=== PATIENT | female | born 1975 | race Caucasian/White ===

== ENCOUNTER 2020-06-13 14:51 | Outpatient (REF) | payer MEDICAID, SELFPAY ==
--- NOTE | 2020-06-13 14:55 | MM_ITS ---
EXAMINATION: MM SCREENING DIGITAL BREAST TOMOSYNTHESIS, BILATERAL CLINICAL INFORMATION: Screening. Asymptomatic. The lifetime risk of breast cancer based on the Tyrer-Cuzick Model is 21%. COMPARISON: Mammography: 02/15/2020, 05/25/2019, 05/24/2019, 05/10/2018, 10/27/2017, 04/26/2017. Ultrasound left breast 05/10/2018 and 05/24/2019. Ultrasound right breast 05/24/2019. TECHNIQUE: Digital breast tomosynthesis is performed in both the craniocaudal and mediolateral oblique views along with computer-aided detection (CAD). Synthesized 2D images are generated from the tomosynthesis. FINDINGS: The breasts are heterogeneously dense, which may obscure small masses (ACR BI-RADS breast composition Category c). There are no significant masses, abnormal calcifications, or other abnormalities. There are scattered bilateral punctate calcifications in each breast. Biopsy clip marker again noted anterior 9:00 right breast. MM/MM tomosynthesis screening BI IMPRESSION: No significant changes from prior exams. ASSESSMENT: BI-RADS 2: Benign RECOMMENDATION: 1. Routine annual mammography screening. 2. The lifetime risk of breast cancer based on the Tyrer-Cuzick Model is 21%. Additional annual adjunct screening with breast MRI may be of benefit in women with a risk score of 20% or greater. This patient's information was entered into a reminder system with a target due date for their next mammogram.
== END 2020-06-13 14:52 | disposition home or self-care (01) ==
LOC: HO.MAMMO 14:51
PROVIDERS: PCP Family Medicine; Visit Provider Family Medicine
DX: Z01.818 Encounter for other preprocedural examination (principal)
CPT/HCPCS: 77063; 77067

== ENCOUNTER 2020-07-31 16:51 | Emergency (ER) | payer MEDICAID, SELFPAY ==
--- NOTE | 2020-07-31 | US_ITS ---
EXAMINATION: PELVIC ULTRASOUND CLINICAL INFORMATION: Pelvic pain COMPARISON: CT abdomen pelvis 01/25/2019 and pelvic ultrasound 01/25/2019 TECHNIQUE: Both transabdominal endovaginal scanning was performed. FINDINGS: An anteverted anteflexed uterus is present measuring 8.6 x 3.5 x 5.3 cm. No uterine masses are seen. The endometrium is homogeneous measuring 1 cm. Neither ovary could be seen. At the time of the 2019 ultrasound, they appeared normal No free fluid was present in the cul-de-sac US/US transvaginal IMPRESSION: No abnormality is seen. Neither ovary could be identified.
[2020-07-31 16:56] VITALS: BP 137/83; PULSE 88; RESP 16; TEMP 36.4; O2SAT 99; BMI 41.7
[2020-07-31 17:25] LABS: Glucose Urine UA NEG (NEG); Leukocyte Esterase Urine NEG (NEG); Nitrite Urine NEG (NEG); PH 6.5 (5.0-8.0); Specific Gravity - Urine 1.025 (1.005-1.025); Urine Blood NEG (NEG); Urine Ketones NEG (NEG); Urine Protein NEG (NEG-TRACE)
[2020-07-31 17:33] LABS: Appearance Urine CLEAR; Color Urine YELLOW
[2020-07-31 17:36] LABS: UPreg QC Valid YES; Urine Pregnancy NEGATIVE (NEGATIVE)
--- NOTE | 2020-07-31 19:33 | ED.ABDPAIN ---
HPI - Abdominal Pain General Chief Complaint: Abdominal Pain Stated Complaint: Abdominal pain Time Seen by Provider: 07/31/20 19:33 Source: patient Mode of arrival: ambulatory Limitations: no limitations History of Present Illness HPI narrative: Patient with no significant abdominal complaints in the past complaining of lower abdominal pain for last 4 days radiating to left flank area also complaining of dysuria associated with nausea no relation with food no diarrhea no fever no chills MD elicited complaint: abdominal pain and flank pain Pertinent past history: none Onset (ago): day(s) (4) Pain Consistency: constant Location: suprapubic Severity: mild Quality: cramping Radiation: L flank Exacerbating factors: nothing Relieving factors: nothing Associated symptoms: nausea Related Data Previous Rx's Medication Instructions Recorded dicyclomine 20 mg PO QID PRN #20 tab 07/31/20 Allergies Allergy/AdvReac Type Severity Reaction Status Date / Time aspirin [Aspirin] Allergy Mild SWELLING Unverified 04/03/20 16:16 THROAT avocado [AVOCADO] Allergy Unknown UNKNOWN Unverified 04/03/20 16:16 latex [LATEX] Allergy Unknown SWOLLEN Unverified 04/03/20 16:16 THROAT aspirin Allergy Unknown throat Uncoded 06/13/19 00:00 swelling FRUIT,FRESH Allergy Unknown UNKNOWN Uncoded 04/03/20 16:16 LOBSTER Allergy Unknown SWOLLEN Uncoded 04/03/20 16:16 MOUTH, THROAT CLOSES PEANUT BUTTER Allergy Unknown SWOLLEN Uncoded 04/03/20 16:16 THROAT, THROAT CLOSES Review of Systems Review of Systems Constitutional : No Weight loss, No Fever, No Chills ENT/Mouth : No sore throat, No Rhinorrhea Eyes: No Eye Pain, No Swelling Cardiovascular : No Chest Pain, no palpitations Respiratory : No Cough, No Sputum, no shortness of breath Gastrointestinal : ++ Nausea, No Vomiting, No Diarrhea, + abdominal Pain, no black stools Genitourinary : No Dysuria, No Urinary Frequency Musculoskeletal : No joint pain, No Myalgias, No Joint Swelling Skin : No Skin Lesions, No rash Neuro : No Weakness, No Numbness, No Dizziness, No Headache Psych : No Anxiety/Panic, No Depression Heme/Lymph: No Bruising, No Lymphadenopathy Endocrine : No Polyuria, No Polydipsia All other systems reviewed and are negative Physical Exam Vital Signs: Vital Signs: Last Vital Signs Temp 97.6 F 07/31/20 16:56 Pulse 88 07/31/20 16:56 Resp 16 07/31/20 16:56 BP 137/83 07/31/20 16:56 Pulse Ox 99 07/31/20 16:56 Body Mass Index 41.7 Const: General: cooperative, comfortable and no acute distress Orientation/consciousness: patient oriented x3 HENMT: Head: Yes normocephalic and Yes atraumatic Eyes: General: appearance normal, both eyes and all related structures Sclerae: sclerae normal Corneas: corneas normal Neck: Neck: Yes normal visual inspection Chest: Chest palpation & inspection: normal palpation of entire chest wall Resp: Effort & Inspection: normal respiratory effort Auscultation: clear to auscultation bilaterally, no crackles, no rales and no rhonchi Cardio: Rate: regular rate Rhythm: regular rhythm Heart sounds: S1 normal heart sound present and S2 normal heart sound present GI: Inspection: Yes normal to inspection Palpation (GI): Soft to palpation and Tenderness to palpation present (GI) suprapubicly; Foote's sign negative, obturator sign negative, with no rebound tenderness and Rovsing's sign negative Percussion: Yes normal to percussion Back/Spine/Pelvis: Back: CVA tenderness (Left) Thoracic/Lumbar Spine: thoracic and lumbar spine normal to inspection Skin: General skin exam: no rashes or lesions noted Neuro: General: patient oriented x3 and no focal motor deficits Extrem: General: Yes normal to inspection, Yes no calf tenderness and No pedal edema Course Course Course Narrative: Patient is still complaining of lower abdominal pain ultrasound was negative for any ovarian cyst or pathology urine also negative WBC count normal etiology of pain is not clear but still she is tender in lower abdomen will do a CT scan of abdomen to rule out any significant pathology MDM - Abdominal Pain MDM Narrative Medical decision making narrative: Patient nonspecific abdominal pain ultrasound negative for any ovarian cyst CT scan also negative for any acute pathology low WBC counts chemistry are all normal urine also negative likely IBS will discharge patient on Bentyl Differential Diagnosis Differential diagnosis: Likely abdominal pain, constipation, diverticulitis, ovarian cyst and pancreatitis Lab Data Attestation: I reviewed the patient's lab results. Result diagrams: 07/31/20 20:30 07/31/20 20:30 Labs: Lab Results 01/07/31/20 07/31/20 Range/Units 17:15 20:30 20:30 WBC 9.7 (4.8-10.8) X10*3/uL RBC 4.90 (4.20-5.50) X10*6/uL Hgb 12.6 (12.0-16.0) g/dl Hct 40.6 (37-47) % MCV 82.9 (80-98) fL MCH 25.7 L (27.0-33.0) pg MCHC 31.0 (31.0-35.0) g/dl RDW 14.5 (11.0-16.0) % Plt Count 257 (160-400) X10*3/uL MPV 10.7 (9.4-12.3) fL Immature Gran % (Auto) 0.4 (0.0-0.4) % Neut % (Auto) 62.8 (45-73) % Lymph % (Auto) 25.4 (20-40) % Mclennan % (Auto) 8.2 (2-11) % Eos % (Auto) 2.6 (0-4) % Baso % (Auto) 0.6 (0-2) % Lymph # (Auto) 2.5 (1.2-4.9) X10*3/uL Mclennan # (Auto) 0.8 (0.1-1.2) X10*3/uL Eos # (Auto) 0.3 (0.0-0.4) X10*3/uL Baso # (Auto) 0.1 (0.0-0.2) X10*3/uL Abs Immat Gran (auto) 0.04 H (0.00-0.03) X10*3/uL Absolute Neuts (auto) 6.1 (2.0-8.3) X10*3/uL Absolute Nucleated RBC 0.000 (0.0-0.012) X10*3/uL Nucleated RBC % (auto) 0.0 (0.0-0.2) /100WBC Sodium 141 (135-145) mmol/L Potassium 4.0 (3.3-5.1) mmol/l Chloride 107 (96-108) mmol/L Carbon Dioxide 29 (22-29) mmol/L Anion Gap 9 L (12-20) BUN 16 (9-16) mg/dL Creatinine 0.82 (0.5-1.4) mg/dL Estim Creat Clear Calc 98.7 Estimated GFR > 60 Random Glucose 92 (60-115) mg/dL Calcium 8.7 (8.4-10.2) mg/dL Total Bilirubin 0.3 (0.0-1.0) mg/dL Direct Bilirubin < 0.2 (0.0-0.5) mg/dL AST 15 (5-31) U/L ALT 20 (0-31) U/L Alkaline Phosphatase 118 H (39-117) U/L Total Protein 7.3 (6.5-8.0) g/dL Albumin 4.1 (3.5-5.0) g/dL Lipase 32 (8-78) U/L Urine Color YELLOW Urine Appearance CLEAR Urine pH 6.5 (5.0-8.0) Ur Specific Universal 1.025 (1.005-1.025) Urine Protein NEG (NEG-TRACE) MG/DL Urine Glucose (UA) NEG (NEG) MG/DL Urine Ketones NEG (NEG) MG/DL Urine Blood NEG (NEG) Urine Nitrite NEG (NEG) Ur Leukocyte Esterase NEG (NEG) Urine Test NEGATIVE (NEGATIVE) Discharge Plan Discharge Clinical Impression: Abdominal pain Patient Disposition: Home, Self-Care Instructions: Abdominal Pain (ED) Additional Instructions: Drink plenty of fluids The cause of abdominal pain is not very clear the CT scan and ultrasound and blood is normal. Take medication as advised and follow with PCP Prescriptions: New dicyclomine 20 mg tablet 20 mg PO QID PRN (Reason: abdominal pain) Qty: 20 RF: 0 PMFSH Past Medical History Medical History Asthma Surgical History Hx of cholecystectomy Social History Social History Advance Directives: No Advance Directives Information Provided: Yes
--- NOTE | 2020-07-31 19:39 | US_ITS ---
EXAMINATION: PELVIC ULTRASOUND CLINICAL INFORMATION: Pelvic pain COMPARISON: CT abdomen pelvis 01/25/2019 and pelvic ultrasound 01/25/2019 TECHNIQUE: Both transabdominal endovaginal scanning was performed. FINDINGS: An anteverted anteflexed uterus is present measuring 8.6 x 3.5 x 5.3 cm. No uterine masses are seen. The endometrium is homogeneous measuring 1 cm. Neither ovary could be seen. At the time of the 2019 ultrasound, they appeared normal No free fluid was present in the cul-de-sac US/US pelvic complete IMPRESSION: No abnormality is seen. Neither ovary could be identified.
[2020-07-31 20:34] LABS: MANUAL DIFF FLAG NO
[2020-07-31 20:35] LABS: Basophils Absolute Auto 0.1 X10*3/uL (0.0-0.2); Basophils Percent Auto 0.6 % (0-2); Eosinophils Absolute Auto 0.3 X10*3/uL (0.0-0.4); Eosinophils Percent Auto 2.6 % (0-4); Hematocrit 40.6 % (37-47); Hemoglobin 12.6 g/dl (12.0-16.0); Imm Gran Abs Auto 0.04 X10*3/uL (0.00-0.03); Imm Gran Pct Auto 0.4 % (0.0-0.4); Lymphocytes Absolute Auto 2.5 X10*3/uL (1.2-4.9); Lymphocytes Percent Auto 25.4 % (20-40); Mean Corpuscular Hemoglobin 25.7 pg (27.0-33.0); Mean Corpuscular Volume 82.9 fL (80-98); Mean Platelet Volume 10.7 fL (9.4-12.3); Monocytes Absolute Auto 0.8 X10*3/uL (0.1-1.2); Monocytes Percent Auto 8.2 % (2-11); Neutrophils Absolute Auto 6.1 X10*3/uL (2.0-8.3); Neutrophils Percent Auto 62.8 % (45-73); Platelet Count 257 X10*3/uL (160-400); Red Cell Distribution Width 14.5 % (11.0-16.0); White Blood Count 9.7 X10*3/uL (4.8-10.8)
[2020-07-31 21:01] LABS: Alanine Aminotransferase 20 U/L (0-31); Albumin Level 4.1 g/dL (3.5-5.0); Alkaline Phosphatase 118 U/L (39-117); Anion Gap 9 (12-20); Aspartate Amino Transferase 15 U/L (5-31); Bilirubin Direct < 0.2 mg/dL (0.0-0.5); Bilirubin Total 0.3 mg/dL (0.0-1.0); Blood Urea Nitrogen 16 mg/dL (9-16); Calcium 8.7 mg/dL (8.4-10.2); Carbon Dioxide 29 mmol/L (22-29); Chloride 107 mmol/L (96-108); Creatinine Clr Calc Pharmacy 98.7; Estimated Glomerular Filt Rate > 60; Glucose Random 92 mg/dL (60-115); Lipase 32 U/L (8-78); Sodium 141 mmol/L (135-145); Total Protein 7.3 g/dL (6.5-8.0)
--- NOTE | 2020-07-31 21:44 | CT_ITS ---
EXAMINATION: CT ABDOMEN AND PELVIS WITHOUT CONTRAST CLINICAL INFORMATION: 45-year-old female with lower abdominal pain. COMPARISON: CT abdomen pelvis 01/25/2019 TECHNIQUE: Multidetector volumetric imaging was performed from the superior aspect of the liver through the pubic symphysis. Sagittal and coronal reformatted images were obtained on the technologist's workstation. This CT examination was performed using dose optimization techniques as appropriate, variously including the following: *Automated exposure control *Adjustment of mA and/or kV according to patient size (this includes techniques or standardized protocols for targeted exams where dose is matched to indication/reason for exam; i.e. extremities or head) *Use of iterative reconstruction technique DLP: 855 mGy-cm FINDINGS: Visualized lung bases are well aerated. The liver demonstrates normal size, contour and attenuation. The gallbladder is surgically absent. The pancreas, spleen and adrenal glands are unremarkable. Symmetrically sized kidneys. No renal calculi or hydronephrosis bilaterally. The stomach is decompressed. Normal caliber loops of small and large bowel. Normal appendix. Nonaneurysmal abdominal aorta. No retroperitoneal lymphadenopathy. The bladder is well-distended and normal in appearance. Unremarkable CT appearance of the uterus. No gross free pelvic fluid. No inguinal lymphadenopathy. No acute osseous abnormality. Metallic fragments again noted in the region of the right hip. CT/CT abdomen pelvis wo con IMPRESSION: No CT evidence for acute abnormality within the abdomen or pelvis.
[2020-07-31 22:00] VITALS: BP 122/78; PULSE 81; RESP 16; TEMP 36.7; O2SAT 99
[2020-07-31] MEDS: Dicyclomine HCl 10 MG CAPSULE 20 MG PO (23:14)
== END 2020-07-31 23:30 | disposition home or self-care (01) ==
PROVIDERS: Emergency Provider Internal Medicine; PCP Family Medicine
DX: R10.9 Unspecified abdominal pain (principal); R10.2 Pelvic and perineal pain; R30.0 Dysuria; R11.2 Nausea with vomiting, unspecified; R25.2 Cramp and spasm; Z79.899 Other long term (current) drug therapy
CPT/HCPCS: 36415; 74176; 76830; 76856; 80048; 80076; 81003; 81025; 83690; 85025; 99284

== ENCOUNTER → 2020-12-26 10:16 | Outpatient (BNVA) | payer MEDICAID, SELFPAY | PROVIDERS: PCP Family Medicine; Visit Provider Nurse Practitioner Family | DX: M54.16 Radiculopathy, lumbar region (principal); M53.3 Sacrococcygeal disorders, not elsewhere classified | CPT/HCPCS: 99202 ==

== ENCOUNTER 2021-01-08 12:51 | Outpatient (REF) | payer MEDICAID, SELFPAY ==
--- NOTE | ~2021-01-08 | MR_ITS ---
EXAMINATION: MR LUMBAR SPINE WITHOUT CONTRAST CLINICAL INFORMATION: Lower back pain. Right leg pain with toe numbness or weakness. COMPARISON: Lumbar spine MRI dated 09/05/2009 TECHNIQUE: MRI of the lumbar spine was obtained using routine sequences without contrast. FINDINGS: VERTEBRAL BODIES AND PARASPINAL STRUCTURES: Normal vertebral body alignment. The lumbar lordosis is maintained. No acute fracture or subluxation. No loss of vertebral body height. Mild loss of intervertebral disc height with disc desiccation at L3-L4, L4-L5, and L5-S1 which is slightly progressed when compared to the prior MRI. Additionally, loss of intervertebral disc height and disc desiccation appears unchanged at T11-T12. No marrow edema to suggest acute osseous injury. The visualized paraspinal soft tissues are unremarkable. CONUS MEDULLARIS AND CAUDA EQUINA: Normal, terminating at the level of L1. SPINAL LEVELS: T11-T12: Minimal disc bulge, unchanged without significant central canal or neural foraminal stenosis. T12-L1: No significant disc bulge. No central canal or neural foraminal stenosis. L1-L2: No significant disc bulge. No central canal or neural foraminal stenosis. L2-L3: No significant disc bulge. No central canal or neural foraminal stenosis. L3-L4: Shallow broad-based disc bulge with bilateral facet arthropathy. No significant central canal or neural foraminal stenosis. Findings are new/increased when compared to the prior examination. L4-L5: Shallow broad-based disc bulge with bilateral facet arthropathy and thickening of the ligamentum flavum causing mild central canal stenosis and encroaching upon the traversing bilateral L5 nerve roots within the lateral recesses. Additionally, this causes mild bilateral neural foraminal stenosis. Findings are slightly more prominent when compared to the prior MRI. L5-S1: Shallow disc bulge and posterior central disc protrusion which abuts the traversing left S1 nerve root. Bilateral facet arthropathy with no significant neural foraminal stenosis. Findings are new/increased when compared to the prior examination. MR/MR lumbar spine wo con IMPRESSION: 1. Mild degenerative disc disease at L3-L4 with a shallow broad-based disc bulge and bilateral facet arthropathy, new/increased when compared to the prior examination. No significant central canal or neural foraminal stenosis. 2. Shallow disc bulge at L5-S1 with a posterior central disc protrusion which abuts the traversing left S1 nerve root. Bilateral facet arthropathy. No significant central canal or neural foraminal stenosis. Findings are new/increased when compared to the prior examination. 3. Shallow broad-based disc bulge at L4-L5 with bilateral facet arthropathy and thickening of the ligamentum flavum causing mild central canal stenosis which encroaches upon the traversing bilateral L5 nerve roots. Mild bilateral neural foraminal stenosis. Findings are slightly more prominent when compared to the prior examination.
== END 2021-01-08 12:52 | disposition home or self-care (01) ==
LOC: HO.MRI 12:51
PROVIDERS: PCP Family Medicine; Visit Provider Anesthesiology
DX: M54.16 Radiculopathy, lumbar region (principal)
CPT/HCPCS: 72148

== ENCOUNTER 2021-04-23 14:09 | Outpatient (REF) | payer MEDICAID, SELFPAY ==
--- NOTE | ~2021-04-23 | US_ITS ---
EXAMINATION: US PELVIS CLINICAL INFORMATION: Irregular menses COMPARISON: Previous pelvic ultrasound and CT of the abdomen and pelvis July 2020 TECHNIQUE: Ultrasound of the pelvis is performed using both transabdominal and transvaginal transducers along with Doppler. Transvaginal imaging is performed due to inadequate visualization transabdominally. FINDINGS: The uterus is anteverted and measures 8 x 3.9 x 4.9 cm in dimension. No focal uterine lesion is seen. Endometrial thickness is normal measuring 0.5 cm. The ovaries are normal-appearing. The right ovary measures 3.2 x 1.7 x 2.3 cm and the left ovary measures 3.6 x 2.1 x 1.9 cm. There is no fluid in the pelvis. US/US pelvic and transvaginal IMPRESSION: Unremarkable exam.
== END 2021-04-23 14:10 | disposition home or self-care (01) ==
LOC: HO.HMGCX 14:09
PROVIDERS: PCP Family Medicine; Visit Provider General Practice
DX: N92.6 Irregular menstruation, unspecified (principal)
CPT/HCPCS: 76830; 76856

== ENCOUNTER 2021-06-04 12:37 | Outpatient (REF) | payer MEDICAID, SELFPAY ==
--- NOTE | ~2021-06-04 | CT_ITS ---
EXAMINATION: CT HEAD WITHOUT CONTRAST CLINICAL INFORMATION: Seizure like activity. Rule out mass. COMPARISON: None TECHNIQUE: Contiguous axial imaging was performed from the skull base to vertex without intravenous administration of contrast. This CT examination was performed using dose optimization techniques as appropriate, variously including the following: *Automated exposure control *Adjustment of mA and/or kV according to patient size (this includes techniques or standardized protocols for targeted exams where dose is matched to indication/reason for exam; i.e. extremities or head) *Use of iterative reconstruction technique DLP: 692 mGy-cm FINDINGS: There is no evidence of acute intracranial hemorrhage or territorial infarction. No abnormal mass effect or midline shift is seen. Stewart to white matter differentiation is well preserved. No extra-axial fluid collections are identified. The ventricles are normal in size. There is no abnormal attenuation within the brain parenchyma. The osseous structures and soft tissues are normal. There are mild inflammatory changes in the sphenoid sinus. The mastoid air cells and visualized portions of the paranasal sinuses are otherwise clear.. CT/CT head/brain wo con IMPRESSION: No acute intracranial pathology.
== END 2021-06-04 12:38 | disposition home or self-care (01) ==
LOC: HO.CT 12:37
PROVIDERS: PCP Family Medicine; Visit Provider Internal Medicine
DX: R56.9 Unspecified convulsions (principal)
CPT/HCPCS: 70450

== ENCOUNTER 2021-06-19 12:00 | Outpatient (REF) | payer MEDICAID, SELFPAY ==
--- NOTE | ~2021-06-19 | MM_ITS ---
EXAMINATION: MM SCREENING DIGITAL BREAST TOMOSYNTHESIS, BILATERAL CLINICAL INFORMATION: Screening. Asymptomatic. Benign right ultrasound-guided biopsy 05/25/2019 (benign breast tissue with cystic changes, chronic inflammation and stromal fibrosis; no atypia or carcinoma seen). The lifetime risk of breast cancer based on the Tyrer-Cuzick Model is 12%. COMPARISON: Mammography: 06/13/2020, 02/15/2020, 05/25/2019, 05/24/2019, 05/10/2018; targeted right breast ultrasound 05/24/2019, ultrasound-guided biopsy 01/22/2019. TECHNIQUE: Digital breast tomosynthesis is performed in both the craniocaudal and mediolateral oblique views along with computer-aided detection (CAD). Synthesized 2D images are generated from the tomosynthesis. FINDINGS: The breasts are heterogeneously dense, which may obscure small masses (ACR BI-RADS breast composition Category c). There are no significant masses, abnormal calcifications, or other abnormalities. No developing density. Again, there are scattered regional calcifications bilateral upper outer quadrants, greater on right. There is a biopsy clip marker again seen anterior 9:30 o'clock right breast. The axilla and skin contours are unremarkable. MM/MM tomosynthesis screening BI IMPRESSION: No mammographic evidence of malignancy. ASSESSMENT: BI-RADS 2: Benign RECOMMENDATION: Routine annual mammography screening. This patient's information was entered into a reminder system with a target due date for their next mammogram.
== END 2021-06-19 12:01 | disposition home or self-care (01) ==
LOC: HO.MAMMO 12:00
PROVIDERS: PCP Family Medicine; Visit Provider Family Medicine
DX: Z12.31 Encounter for screening mammogram for malignant neoplasm of breast (principal)
CPT/HCPCS: 77063; 77067

== ENCOUNTER → 2021-06-22 13:22 | Outpatient (REF) | payer MEDICAID, SELFPAY ==
--- NOTE | 2021-06-22 13:28 | ECG_ITS ---
Hook-up date: 2021-06-22 13:38:00 Duration: 26:03:00 Test Indications: UNSPEC. COMA Medications: [id number] QRS complexes 2 Ventricular ectopics which represent <1 % of total QRS comp. 3 Supraventricular ectopics which represent <1 % of total QRS comp. * Paced QRS complexs which represent % of total QRS comp. VENTRICULAR ECTOPY 2 Isolated 0 Bigeminal Cycles 0 Couplets 0 Runs 0 Beats in Runs * Beats LONGEST at * BPM at :: -- * Beats FASTEST at * BPM at :: -- SUPRAVENTRICULAR ECTOPY 3 Isolated 0 Couplets 0 Runs 0 Beats in Runs * Beats LONGEST at * BPM at :: -- * Beats FASTEST at * BPM at :: -- HEART RATES 51 MIN at 07:37:35 2021-06-23 81 AVG 139 MAX at 20:40:37 2021-06-22 LONGEST RR 1.2640 secs at 08:30:51 2021-06-23 S-T LEVELS Channel 1 - 128 mm at 13:38:00 2021-06-22 - 128 mm at 13:38:00 2021-06-22 Channel 2 - 128 mm at 13:38:00 2021-06-22 - 128 mm at 13:38:00 2021-06-22 Channel 3 - 128 mm at 03:25:71 -- - 128 mm at 03:25:71 Underlying rhythm is sinus; Average ventricular rate 81/min; range 51-139/min; No significant supraventricular or ventricular ectopy; No sustained arrhythmias; Symptoms in patient diary including 'dizziness', 'chest tightness' associated with normal sinus rhythm; symptom of 'accelerated' associated with mild sinus tachycardia. Referred By: Nito Braga Overread By: SHELBY BAR
== END ==
LOC: HO.CARD 13:22
PROVIDERS: Visit Provider Internal Medicine
DX: R40.20 Unspecified coma (principal)
CPT/HCPCS: 93225; 93226

== ENCOUNTER 2021-06-23 06:33 | Outpatient (REF) | payer MEDICAID, SELFPAY ==
--- NOTE | ~2021-06-23 | FL_ITS ---
EXAMINATION: XR FLUOROSCOPY WITH IMAGES CLINICAL INFORMATION: M54.16 - Radiculopathy, lumbar region COMPARISON: MR lumbar spine 01/08/2021 TECHNIQUE: Fluoroscopy performed by Dr. Piyush Coronel. Fluoroscopy time: 0.5 minutes DAP: 8.7 Gycm2 Images: 2 FINDINGS: There are spinal needles overlying the bilateral outer L4 neural foramen. There is contrast seen in the respective nerve sheaths. Transverse foraminal epidural extension is suggested. No visible vascular communication. FL/FL guidance in treatment room IMPRESSION: Fluoroscopy for pain management procedures.
== END 2021-06-23 06:34 | disposition home or self-care (01) ==
LOC: HO.RADIR 06:33
PROVIDERS: Visit Provider Anesthesiology
DX: M54.16 Radiculopathy, lumbar region (principal); M53.3 Sacrococcygeal disorders, not elsewhere classified
CPT/HCPCS: 64483; J3300; Q9967

== ENCOUNTER → 2021-07-21 12:02 | Outpatient (BNVA) | payer MEDICAID, SELFPAY | PROVIDERS: PCP Family Medicine; Visit Provider Nurse Practitioner Family | DX: M54.16 Radiculopathy, lumbar region (principal); M53.3 Sacrococcygeal disorders, not elsewhere classified | CPT/HCPCS: 99212 ==

== ENCOUNTER → 2021-09-29 15:31 | Outpatient (BNVA) | payer MEDICAID, SELFPAY | PROVIDERS: Visit Provider Nurse Practitioner Family | DX: Z13.89 Encounter for screening for other disorder (principal) ==

== ENCOUNTER 2021-11-26 14:21 | Outpatient (REF) | payer MEDICAID, SELFPAY ==
[2021-11-26 14:40] LABS: MANUAL DIFF FLAG NO
[2021-11-26 14:44] LABS: Basophils Absolute Auto 0.1 X10*3/uL (0.0-0.2); Basophils Percent Auto 0.8 % (0-2); Eosinophils Absolute Auto 0.2 X10*3/uL (0.0-0.4); Eosinophils Percent Auto 3.1 % (0-4); Hematocrit 40.2 % (37.0-47.0); Hemoglobin 12.5 g/dl (12.0-16.0); Imm Gran Abs Auto 0.03 X10*3/uL (0.00-0.03); Imm Gran Pct Auto 0.4 % (0.0-0.4); Lymphocytes Absolute Auto 1.9 X10*3/uL (1.2-4.9); Lymphocytes Percent Auto 25.6 % (20-40); Mean Corpuscular HGB Conc 31.1 g/dl (31.0-35.0); Mean Corpuscular Hemoglobin 25.3 pg (27.0-33.0); Mean Corpuscular Volume 81.4 fL (80.0-98.0); Monocytes Absolute Auto 0.5 X10*3/uL (0.1-1.2); Monocytes Percent Auto 6.5 % (2-11); Neutrophils Absolute Auto 4.7 x10*3/uL (2.0-8.3); Neutrophils Percent Auto 63.6 % (45-73); Platelet Count 275 X10*3/uL (160-400); Red Blood Count 4.94 X10*6/uL (4.20-5.50); Red Cell Distribution Width 14.9 % (11.0-16.0); White Blood Count 7.3 X10*3/uL (4.8-10.8)
[2021-11-26 15:02] LABS: Monotest Negative (Negative)
[2021-11-26 15:07] LABS: Anion Gap 10 (12-20); Blood Urea Nitrogen 11 mg/dL (9-16); C Reactive Protein 1.03 mg/dL (< or = 0.50); Calcium 9.2 mg/dL (8.4-10.2); Carbon Dioxide 26 mmol/L (22-29); Chloride 108 mmol/L (96-108); Estimated Glomerular Filt Rate > 60; Glucose Random 102 mg/dL (60-115); Potassium 4.1 mmol/L (3.3-5.1); Sodium 140 mmol/L (135-145)
[2021-11-26 15:30] LABS: Erythrocyte Sedimentation Rate 18 MM/HR (0-20)
== END 2021-11-26 14:22 | disposition home or self-care (01) ==
LOC: HO.LAB 14:21
PROVIDERS: Absent Provider Family Medicine; PCP Family Medicine; Visit Provider Internal Medicine
DX: R22.2 Localized swelling, mass and lump, trunk (principal)
CPT/HCPCS: 36415; 80048; 85025; 85652; 86140; 86308

== ENCOUNTER 2021-12-01 10:36 | Outpatient (REF) | payer MEDICAID, SELFPAY ==
--- NOTE | ~2021-12-01 | CT_ITS ---
EXAMINATION: CT SOFT TISSUE NECK WITH CONTRAST CLINICAL INFORMATION: Pain and swelling. COMPARISON: None TECHNIQUE: Following the intravenous administration of 80 mL of Omnipaque 350 contrast, helical imaging was performed in the axial plane with generation of coronal and sagittal reformatted images. This CT examination was performed using dose optimization techniques as appropriate, variously including the following: *Automated exposure control *Adjustment of mA and/or kV according to patient size (this includes techniques or standardized protocols for targeted exams where dose is matched to indication/reason for exam; i.e. extremities or head) *Use of iterative reconstruction technique DLP: 691 mGy-cm FINDINGS: No contour abnormality or pathologic enhancement is seen within the oral cavity, pharyngeal mucosal space, or larynx. The thyroid gland appears normal. The submandibular and parotid glands are normal in appearance. No enlarged cervical lymph nodes are identified. The carotid sheath vasculature opacifies normally. A 1 cm left supraclavicular lymph node is slightly conspicuous but not pathologically enlarged. The imaged mediastinum appears normal. The lung apices are clear. No acute osseous abnormality is identified. There is a reversal of the normal cervical lordosis with a disc-osteophyte complex at the C6-C7 level. No extra mucosal soft tissue lesion is identified. No periapical lucencies are seen in the dentition. The imaged paranasal sinuses and mastoid air cells are well aerated. The orbits appear normal. The visualized portions of the brain demonstrate no acute abnormality. CT/CT soft tissue neck w con IMPRESSION: No soft tissue mass or adenopathy identified. No acute process. Lower cervical spondylosis.
--- NOTE | ~2021-12-01 | CT_ITS ---
EXAMINATION: CT CHEST WITH CONTRAST CLINICAL INFORMATION: Lump, pain and swelling. COMPARISON: None TECHNIQUE: Multidetector volumetric CT imaging of the chest was obtained after the administration of 80 mL of Omnipaque 350 intravenous contrast without immediate adverse reactions. Axial MIP volume rendering provided. Sagittal and coronal reformatted images were obtained. This CT examination was performed using dose optimization techniques as appropriate, variously including the following: *Automated exposure control *Adjustment of mA and/or kV according to patient size (this includes techniques or standardized protocols for targeted exams where dose is matched to indication/reason for exam; i.e. extremities or head) *Use of iterative reconstruction technique DLP: 691 mGy-cm FINDINGS: LUNGS: Central airways are patent. No significant bronchial wall thickening is seen. No bronchiectasis. No significant emphysematous change is seen. No confluent parenchymal disease is noted. No suspicious nodules identified. MEDIASTINUM: Visualized thyroid gland unremarkable. Heart normal size. No pericardial effusion. No significant coronary artery calcification is identified. No thoracic aortic aneurysm. No mediastinal or hilar lymphadenopathy identified. There are a few prominent but not pathologically enlarged superior mediastinal lymph nodes. PLEURA: There is no pleural effusion. No pleural mass or thickening. AXILLA: There are some prominent axillary lymph nodes, left greater than right, measuring up to 1.2 cm in short axis. UPPER ABDOMEN: Status post cholecystectomy. No adrenal gland lesions identified. OSSEOUS STRUCTURES: No acute destructive bony lesions identified. CT/CT chest w con IMPRESSION: No significant parenchymal disease identified. Mildly prominent lymph nodes as described. Fleischner guidelines were followed.
[2021-12-01] MEDS: iohexoL 350 MG/ML 100 ML INFUS..BTL 80 ML IV (11:37)
== END 2021-12-01 10:37 | disposition home or self-care (01) ==
LOC: HO.CT 10:36
PROVIDERS: Visit Provider Internal Medicine
DX: R22.2 Localized swelling, mass and lump, trunk (principal)
CPT/HCPCS: 70491; 71260; Q9967

== ENCOUNTER 2021-12-04 06:15 | Outpatient (REF) | payer MEDICAID, SELFPAY ==
--- NOTE | ~2021-12-04 | FL_ITS ---
EXAMINATION: XR FLUOROSCOPY WITH IMAGES CLINICAL INFORMATION: M54.16 - Radiculopathy, lumbar region COMPARISON: Fluoroscopic spot views 06/23/2021; MR lumbar spine 01/08/2021. TECHNIQUE: Fluoroscopy performed by Dr. Contreras Victoria. Fluoroscopy time: 0.7 minutes DAP: 4.04 Gycm2 Images: 4 FINDINGS: There are spinal needles overlying the bilateral outer L4 neural foramen. There is contrast seen in the respective nerve sheaths. Some early transforaminal epidural extension is suggested. No visible vascular communication.
== END 2021-12-04 06:16 | disposition home or self-care (01) ==
LOC: HO.RADIR 06:15
PROVIDERS: Visit Provider Internal Medicine
DX: G89.29 Other chronic pain (principal); M54.16 Radiculopathy, lumbar region; M54.9 Dorsalgia, unspecified
CPT/HCPCS: 64483; J1100; Q9967

== ENCOUNTER → 2022-02-28 22:19 | Outpatient (REF) | payer MEDICAID, SELFPAY | LOC: HO.SL 22:19 | PROVIDERS: Visit Provider Family Medicine | DX: R06.00 Dyspnea, unspecified (principal); R06.83 Snoring | CPT/HCPCS: 95810 ==

== ENCOUNTER 2022-03-10 16:45 | Emergency (ER) | payer MEDICAID, SELFPAY ==
--- NOTE | ~2022-03-10 | XR_ITS ---
EXAMINATION: XR CHEST CLINICAL INFORMATION: Chest pain COMPARISON: None TECHNIQUE: 2 views of the chest were obtained. FINDINGS: No significant abnormality is noted involving the heart, lungs, mediastinum, bony thorax or soft tissues. XR/XR chest 2V IMPRESSION: Unremarkable examination.
--- NOTE | 2022-03-10 16:48 | ECG_ITS ---
Test Reason : CHEST PAIN Blood Pressure : / mmHG Vent. Rate : 065 BPM Atrial Rate : 065 BPM P-R Int : 144 ms QRS Dur : 084 ms QT Int : 408 ms P-R-T Axes : 042 021 012 degrees QTc Int : 424 ms Normal sinus rhythm with sinus arrhythmia Normal ECG When compared with ECG of 27-OCT-2016 19:01, Vent. rate has decreased BY 32 BPM Referred By: Generic ED Physician Electronically Signed By:ROSANNA PULLIAM
[2022-03-10 16:54] VITALS: PULSE 87; RESP 18; TEMP 36.6; O2SAT 100; BMI 33.3
[2022-03-10 19:04] LABS: MANUAL DIFF FLAG NO
[2022-03-10 19:07] LABS: Basophils Absolute Auto 0.1 X10*3/uL (0.0-0.2); Basophils Percent Auto 0.8 % (0-2); Eosinophils Absolute Auto 0.2 X10*3/uL (0.0-0.4); Eosinophils Percent Auto 3.6 % (0-4); Hematocrit 39.7 % (37.0-47.0); Hemoglobin 12.6 g/dl (12.0-16.0); Imm Gran Abs Auto 0.03 X10*3/uL (0.00-0.03); Imm Gran Pct Auto 0.5 % (0.0-0.4); Mean Corpuscular HGB Conc 31.7 g/dl (31.0-35.0); Mean Corpuscular Hemoglobin 25.7 pg (27.0-33.0); Mean Corpuscular Volume 80.9 fL (80.0-98.0); Mean Platelet Volume 10.2 fL (9.4-12.3); Monocytes Absolute Auto 0.5 X10*3/uL (0.1-1.2); Monocytes Percent Auto 7.1 % (2-11); Neutrophils Absolute Auto 3.7 x10*3/uL (2.0-8.3); Platelet Count 247 X10*3/uL (160-400); Red Blood Count 4.91 X10*6/uL (4.20-5.50); White Blood Count 6.5 X10*3/uL (4.8-10.8)
[2022-03-10 19:22] LABS: Alanine Aminotransferase 18 U/L (0-31); Albumin Level 3.9 g/dL (3.5-5.0); Alkaline Phosphatase 126 U/L (39-117); Anion Gap 12 (12-20); Aspartate Amino Transferase 19 U/L (5-31); Bilirubin Direct < 0.2 mg/dL (0.0-0.5); Bilirubin Total 0.2 mg/dL (0.0-1.0); Blood Urea Nitrogen 11 mg/dL (9-16); Calcium 8.9 mg/dL (8.4-10.2); Carbon Dioxide 27 mmol/L (22-29); Chloride 109 mmol/L (96-108); Creatinine Clr Calc Pharmacy 105.7; Estimated Glomerular Filt Rate > 60; Glucose Random 94 mg/dL (60-115); Sodium 144 mmol/L (135-145); Total Protein 7.1 g/dL (6.5-8.0)
[2022-03-10 19:28] LABS: Troponin-I High Sensitivity < 3.5 ng/L (<3.5-17.0)
[2022-03-10 21:42] VITALS: BP 140/87; PULSE 59; RESP 16; TEMP 36.6; O2SAT 100
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
[2022-03-10 23:17] VITALS: BP 129/70; PULSE 57; RESP 16; TEMP 36.8; O2SAT 99
[2022-03-10] MEDS: predniSONE 20 MG TABLET 60 MG PO (23:37)
[2022-03-10] MEDS: guaiFEN/Codeine SF 200/20/10ML 10 ML LIQUID 5 ML PO (23:37)
[2022-03-10] MEDS: Azithromycin 500 MG TABLET PO (23:37)
[2022-03-10] MEDS: Acetaminophen 325 MG TABLET 975 MG PO (23:37)
[2022-03-11 00:12] LABS: COVID-19 Test Negative (Negative)
--- NOTE | 2022-03-11 00:25 | PC.NURSE ---
pt stated she had about a 6 out of 10 chest pain at time of discharge. discharge packet was provided to patient. pt verbalized understanding of discharge plan
== END 2022-03-11 00:26 | disposition home or self-care (01) ==
PROVIDERS: Nurse Practitioner Family; Emergency Provider Internal Medicine
DX: R07.89 Other chest pain (principal); Z20.822 Contact with and (suspected) exposure to COVID-19; Z79.899 Other long term (current) drug therapy
CPT/HCPCS: 36415; 71046; 80053; 82248; 84484; 85025; 87635; 93005; 99283; 99284

== ENCOUNTER 2022-10-06 14:25 | Outpatient (REF) | payer MEDICAID, SELFPAY ==
--- NOTE | ~2022-10-06 | US_ITS ---
EXAM: Pelvic Ultrasound CLINICAL INDICATION: Left lower quadrant stabbing pain COMPARISON: Pelvic ultrasound 04/23/2021 TECHNIQUE: The pelvis was evaluated using transabdominal and transvaginal imaging. FINDINGS: The uterus measures 8.0 x 4.0 x 6.1 cm in longitudinal by AP by transverse dimension. The endometrial stripe measures 1.2 cm. The left ovary measures approximately 3.5 x 2.3 x 2.4 cm and contains a 2.3 cm dominant follicle versus simple cyst. The right ovary measures approximately 2.9 x 1.4 x 2.0 cm and is normal. There are no abnormal adnexal masses. There is a small amount of free fluid in the pelvis. US/US pelvic and transvaginal IMPRESSION: 1. Endometrial stripe measures 1.2 cm in thickness. Correlation with menstrual cycle recommended. 2. 2.3 cm dominant follicle versus simple cyst of the left ovary. 3. Small amount of free pelvic fluid, nonspecific.
== END 2022-10-06 14:26 | disposition home or self-care (01) ==
LOC: HO.US 14:25
PROVIDERS: Visit Provider Registered Nurse
DX: R10.32 Left lower quadrant pain (principal)
CPT/HCPCS: 76830; 76856

== ENCOUNTER 2023-05-25 17:51 | Outpatient (REF) | payer MEDICAID, SELFPAY ==
[2023-05-25 18:55] LABS: Influenza A PCR NEGATIVE (Negative); Influenza B PCR NEGATIVE (Negative); Resp Syncy Virus RNA Qual PCR NEGATIVE (Negative); SARS COV2 PCR INHOUSE NEGATIVE (Negative)
== END 2023-05-25 17:52 | disposition home or self-care (01) ==
LOC: HO.HHCLNP 17:51
PROVIDERS: Visit Provider Emergency Medicine
DX: J45.40 Moderate persistent asthma, uncomplicated (principal); Z11.52 Encounter for screening for COVID-19
CPT/HCPCS: 0241U; 87070

== ENCOUNTER 2023-08-08 14:13 | Outpatient (REF) | payer MEDICAID, SELFPAY ==
[2023-08-08 16:32] LABS: Estimated Average Glucose 100 mg/dL; Hemoglobin A1c % 5.1 % (<6.0)
[2023-08-08 16:47] LABS: Alanine Aminotransferase 19 U/L (0-31); Albumin Level 4.2 g/dL (3.5-5.0); Alkaline Phosphatase 123 U/L (39-117); Anion Gap 11 (12-20); Aspartate Amino Transferase 19 U/L (5-31); Bilirubin Total 0.3 mg/dL (0.0-1.0); Blood Urea Nitrogen 12 mg/dL (9-16); Calcium 9.4 mg/dL (8.4-10.2); Carbon Dioxide 26 mmol/L (22-29); Chloride 107 mmol/L (96-108); Estimated Glomerular Filt Rate > 60; Glucose Random 82 mg/dL (60-115); Potassium 3.9 mmol/L (3.3-5.1); Sodium 140 mmol/L (135-145)
[2023-08-08 17:02] LABS: TSH reflex Free T4 2.89 uIU/mL (0.32-4.0)
== END 2023-08-08 14:14 | disposition home or self-care (01) ==
LOC: HO.HHCL 14:13
PROVIDERS: Visit Provider Family Medicine
DX: E03.9 Hypothyroidism, unspecified (principal); E66.01 Morbid (severe) obesity due to excess calories; Z68.41 Body mass index [BMI] 40.0-44.9, adult; I10 Essential (primary) hypertension
CPT/HCPCS: 36415; 80053; 83036; 84443

== ENCOUNTER 2023-08-11 08:04 | Outpatient (REF) | payer MEDICAID, SELFPAY ==
--- NOTE | ~2023-08-11 | XR_ITS ---
EXAMINATION: XR CHEST CLINICAL INFORMATION: Left supraclavicular mass for 2 days COMPARISON: 03/10/2022 TECHNIQUE: 2 views of the chest were obtained. FINDINGS: Lungs are well-inflated and clear. Trachea is midline in position. No interstitial disease, consolidation or mass. No pleural effusion or pneumothorax. Cardiac silhouette and pulmonary vessels are normal in size. The mediastinum and james have normal contour. There are no findings to suggest presence of lymphadenopathy. Skeletal structures are unremarkable. Cholecystectomy clips in the upper abdomen. No radiographic evidence of any overt supraclavicular mass. XR/XR chest 2V IMPRESSION: No acute cardiopulmonary abnormality.
== END 2023-08-11 08:05 | disposition home or self-care (01) ==
LOC: HO.HHCX 08:04
PROVIDERS: Visit Provider Emergency Medicine
DX: R22.2 Localized swelling, mass and lump, trunk (principal)
CPT/HCPCS: 71046

== ENCOUNTER 2023-08-11 08:07 | Outpatient (REF) | payer MEDICAID, SELFPAY ==
[2023-08-11 11:58] LABS: Cholesterol 133 mg/dL (<200); HDL Cholesterol 39 mg/dL (>40); LDL Cholesterol Calculated 76 mg/dL (<100); Triglycerides 91 mg/dL (<150)
[2023-08-11 13:09] LABS: Reflex LDLD? No
== END 2023-08-11 08:08 | disposition home or self-care (01) ==
LOC: HO.HHCL 08:07
PROVIDERS: Visit Provider Family Medicine
DX: I10 Essential (primary) hypertension (principal); E66.01 Morbid (severe) obesity due to excess calories; Z68.41 Body mass index [BMI] 40.0-44.9, adult
CPT/HCPCS: 36415; 80061

== ENCOUNTER 2023-08-16 08:27 | Outpatient (REF) | payer MEDICAID, SELFPAY ==
[2023-08-16 11:47] LABS: Basophils Absolute Auto 0.1 X10*3/uL (0.0-0.2); Basophils Percent Auto 0.9 % (0-2); Eosinophils Absolute Auto 0.3 X10*3/uL (0.0-0.4); Eosinophils Percent Auto 3.6 % (0-4); Hematocrit 46.2 % (37.0-47.0); Hemoglobin 14.5 g/dl (12.0-16.0); Imm Gran Abs Auto 0.01 X10*3/uL (0.00-0.03); Imm Gran Pct Auto 0.1 % (0.0-0.4); Lymphocytes Absolute Auto 2.3 X10*3/uL (1.2-4.9); Lymphocytes Percent Auto 32.1 % (20-40); MANUAL DIFF FLAG SCAN; Mean Corpuscular HGB Conc 31.4 g/dl (31.0-35.0); Mean Corpuscular Hemoglobin 26.1 pg (27.0-33.0); Mean Corpuscular Volume 83.1 fL (80.0-98.0); Mean Platelet Volume 11.6 fL (9.4-12.3); Monocytes Absolute Auto 0.7 X10*3/uL (0.1-1.2); Monocytes Percent Auto 9.8 % (2-11); Neutrophils Absolute Auto 3.8 x10*3/uL (2.0-8.3); Neutrophils Percent Auto 53.5 % (45-73); Platelet Count 302 X10*3/uL (160-400); Red Blood Count 5.56 X10*6/uL (4.20-5.50); Red Cell Distribution Width 14.8 % (11.0-16.0); SCAN SMEAR FLAG 1
[2023-08-16 12:11] LABS: Alanine Aminotransferase 20 U/L (0-31); Albumin Level 4.3 g/dL (3.5-5.0); Alkaline Phosphatase 127 U/L (39-117); Anion Gap 12 (12-20); Aspartate Amino Transferase 22 U/L (5-31); Bilirubin Total 0.3 mg/dL (0.0-1.0); Blood Urea Nitrogen 17 mg/dL (9-16); Calcium 9.5 mg/dL (8.4-10.2); Carbon Dioxide 31 mmol/L (22-29); Chloride 99 mmol/L (96-108); Estimated Glomerular Filt Rate > 60; Glucose Random 91 mg/dL (60-115); Sodium 139 mmol/L (135-145); Total Protein 8.6 g/dL (6.5-8.0)
[2023-08-16 12:13] LABS: SLIDE REVIEW VERIFIED
[2023-08-16 12:27] LABS: Lactate Dehydrogenase 427 U/L (122-220)
== END 2023-08-16 08:28 | disposition home or self-care (01) ==
LOC: HO.HHCL 08:27
PROVIDERS: Visit Provider Emergency Medicine
DX: R22.2 Localized swelling, mass and lump, trunk (principal)
CPT/HCPCS: 36415; 80053; 83615; 85025

== ENCOUNTER 2023-08-19 08:26 | Outpatient (REF) | payer MEDICAID, SELFPAY ==
--- NOTE | ~2023-08-19 | US_ITS ---
EXAMINATION: US SOFT TISSUE NECK CLINICAL INFORMATION: Small tender supraclavicular mass for 2 weeks COMPARISON: None available. TECHNIQUE: Ultrasound of the neck soft tissues is performed with high- frequency oshea-scale imaging and color Doppler. FINDINGS: THYROID BED: Prior thyroidectomy. No residual thyroid tissue demonstrated in the thyroid bed. No cystic or solid nodules demonstrated in the thyroid bed. RIGHT NECK SOFT TISSUES: The area of palpable lump corresponding to small superficial lymph nodes measured 0.97 x 0.53 x 1.08 cm and cystic 0.72 x 0.40 x 0.77 cm. Both lymph nodes are hypervascular and homogeneous, next to each other. US/US soft tiss head and/or neck Impression: Reactive appearing lymph nodes in left supraclavicular neck corresponding to the palpable lumps.
== END 2023-08-19 08:27 | disposition home or self-care (01) ==
LOC: HO.HMGCX 08:26
PROVIDERS: PCP Family Medicine; Visit Provider Emergency Medicine
DX: R22.2 Localized swelling, mass and lump, trunk (principal)
CPT/HCPCS: 76536

== ENCOUNTER → 2023-08-19 12:59 | Outpatient (BNV) | payer MEDICAID, SELFPAY | PROVIDERS: PCP Family Medicine; Visit Provider Internal Medicine Medical Oncology | DX: R59.0 Localized enlarged lymph nodes (principal) | CPT/HCPCS: 99204 ==

== ENCOUNTER 2023-11-01 14:52 | Outpatient (REF) | payer MEDICAID, SELFPAY ==
[2023-11-01 17:06] LABS: Anion Gap 13 (12-20)
[2023-11-01 17:45] LABS: Alanine Aminotransferase 32 U/L (0-31); Albumin Level 4.1 g/dL (3.5-5.0); Alkaline Phosphatase 145 U/L (39-117); Aspartate Amino Transferase 24 U/L (5-31); Bilirubin Total 0.3 mg/dL (0.0-1.0); Blood Urea Nitrogen 13 mg/dL (9-16); Calcium 9.7 mg/dL (8.4-10.2); Carbon Dioxide 29 mmol/L (22-29); Chloride 103 mmol/L (96-108); Estimated Glomerular Filt Rate > 60; Glucose Random 84 mg/dL (60-115); Magnesium 2.2 mg/dL (1.6-2.6); Potassium 2.9 mmol/L (3.3-5.1); Sodium 142 mmol/L (135-145); Total Protein 8.2 g/dL (6.5-8.0)
== END 2023-11-01 14:53 | disposition home or self-care (01) ==
LOC: HO.HHCL 14:52
PROVIDERS: Visit Provider Family Medicine
DX: E87.6 Hypokalemia (principal)
CPT/HCPCS: 36415; 80053; 83735

== ENCOUNTER 2023-11-11 08:40 | Outpatient (REF) | payer MEDICAID, SELFPAY ==
[2023-11-11 11:44] LABS: MANUAL DIFF FLAG NO
[2023-11-11 11:51] LABS: Basophils Absolute Auto 0.1 X10*3/uL (0.0-0.2); Basophils Percent Auto 1.1 % (0-2); Eosinophils Absolute Auto 0.3 X10*3/uL (0.0-0.4); Eosinophils Percent Auto 3.8 % (0-4); Hematocrit 42.1 % (37.0-47.0); Hemoglobin 13.4 g/dl (12.0-16.0); Imm Gran Abs Auto 0.04 X10*3/uL (0.00-0.03); Imm Gran Pct Auto 0.6 % (0.0-0.4); Lymphocytes Absolute Auto 1.7 X10*3/uL (1.2-4.9); Lymphocytes Percent Auto 26.2 % (20-40); Mean Corpuscular HGB Conc 31.8 g/dl (31.0-35.0); Mean Corpuscular Hemoglobin 26.4 pg (27.0-33.0); Mean Corpuscular Volume 82.9 fL (80.0-98.0); Monocytes Absolute Auto 0.6 X10*3/uL (0.1-1.2); Monocytes Percent Auto 8.4 % (2-11); Neutrophils Absolute Auto 3.9 x10*3/uL (2.0-8.3); Neutrophils Percent Auto 59.9 % (45-73); Platelet Count 267 X10*3/uL (160-400); Red Blood Count 5.08 X10*6/uL (4.20-5.50); Red Cell Distribution Width 14.4 % (11.0-16.0); White Blood Count 6.6 X10*3/uL (4.8-10.8)
[2023-11-11 12:31] LABS: Potassium 3.2 mmol/L (3.3-5.1)
[2023-11-12 04:44] LABS: HBS Num1 412.07 mIU/mL (0-7.99); HBsAGNum1 0.36 S/CO (0.00-0.99); Hepatitis A Antibody IgM 0.14 Index (0-0.79); Hepatitis B Core Antibody Nonreactive (Nonreactive); Hepatitis B Surface Antigen Negative (Negative); ~HepC Num1 0.09 S/CO (0.00-0.79); ~Hepatitis A Antibody IgM Nonreactive (Nonreactive); ~Hepatitis B Surface Antibody REACTIVE (Nonreactive); ~Hepatitis C Antibody Nonreactive (Nonreactive)
== END 2023-11-11 08:41 | disposition home or self-care (01) ==
LOC: HO.HHCL 08:40
PROVIDERS: Visit Provider Family Medicine
DX: R74.8 Abnormal levels of other serum enzymes (principal); E87.6 Hypokalemia
CPT/HCPCS: 36415; 84132; 85025; 86704; 86706; 86709; 86803; 87340

== ENCOUNTER 2023-11-22 11:15 | Outpatient (REF) | payer MEDICAID, SELFPAY ==
--- NOTE | ~2023-11-22 | US_ITS ---
EXAMINATION: US COMPLETE ABDOMEN WITH LIVER ELASTOGRAPHY CLINICAL INFORMATION: Elevated liver function tests. COMPARISON: None available. TECHNIQUE: Real-time imaging of the abdominal viscera. Noninvasive ultrasound liver fibrosis assessment is performed using Mi ElastPQ point quantification shear wave elastography (2D-SWE) with a C5-2 MHz transducer. Multiple elastography samples are obtained. FINDINGS: PANCREAS: Normal. The visualized pancreatic head and body are normal in appearance. The remainder of the pancreas is obscured from visualization by the overlying bowel gas. ABDOMINAL AORTA: The proximal, middle, and distal aortic segments are normal in caliber. INFERIOR VENA CAVA: Visualized portions are normal. LIVER: Normal. The liver demonstrates normal size, contour and echogenicity. No focal lesion or intrahepatic biliary duct dilatation. The right lobe measures 15.7 cm in length. The left lobe measures 7.7 cm in length. Portal flow is towards the liver (hepatopetal). Shear wave liver elastography median stiffness is 1.3 m/s (reference: normal median stiffness is 1.3 m/s or less). IQR/median stiffness to assess sampling precision is 0.06 (reference: good quality data set is IQR/median stiffness of 0.15 or less). GALLBLADDER: Surgically absent. COMMON BILE DUCT: Normal in caliber measuring 0.4 cm in diameter. RIGHT KIDNEY: Normal. No hydronephrosis. No renal calculi or focal parenchymal lesions. The kidney measures 10.9 cm in maximum dimension. LEFT KIDNEY: Normal. No hydronephrosis. No renal calculi or focal parenchymal lesions. The kidney measures 11.2 cm in maximum dimension. SPLEEN: Normal. The spleen measures 12.9 cm in maximum dimension. FREE FLUID: None. US/US abdomen comp w elastography IMPRESSION: 1. There is generalized increase in hepatic echotexture, consistent with fatty infiltration or hepatocellular disease. Please correlate clinically. No focal hepatic mass or intrahepatic biliary dilatation is seen. 2. Liver elastography: Measurements are consistent with a high probability of normal liver stiffness. 3. There is borderline splenomegaly. 4. The gallbladder is surgically absent. REFERENCE: Society of Radiologists in Ultrasound Liver Stiffness Thresholds (2020): LIVER STIFFNESS THRESHOLDS: *Liver Stiffness equal or less than 1.3 m/s: High probability of being normal. *Liver Stiffness less than 1.7 m/s: In the absence of other known clinical signs, rules out compensated advanced chronic liver disease. *Liver Stiffness 1.7-2.1 m/s: Suggestive of compensated advanced chronic liver disease but need further test for confirmation. *Liver Stiffness over 2.1 m/s: Rules in compensated advanced chronic liver disease. *Liver Stiffness over 2.4 m/s: Suggestive of clinically significant portal hypertension. QUALITY OF DATA SET: *IQR/Median value equal or less than 0.15 implies a quality data set. *IQR/Median value over 0.15 implies a poor quality data set. SIGNIFICANT CHANGE FROM PRIOR EXAM: Significant change if liver stiffness measurement is 10% or greater from prior exam. OTHER CONSIDERATIONS: The stage of liver fibrosis may be overestimated in the setting of acute hepatitis, liver inflammation, elevated liver function tests, hepatic vascular congestion, obstructive cholestasis, non-fasting state, and infiltrative diseases such as amyloidosis and lymphoma. In some patients with NAFLD, the liver stiffness thresholds for compensated advanced chronic liver disease may be lower. In causes other than viral hepatitis and NAFLD, liver stiffness thresholds are not well established.
== END 2023-11-22 11:16 | disposition home or self-care (01) ==
LOC: HO.US 11:15
PROVIDERS: PCP Family Medicine; Visit Provider Family Medicine
DX: R74.8 Abnormal levels of other serum enzymes (principal)
CPT/HCPCS: 76700; 76981

== ENCOUNTER 2023-11-29 15:39 | Outpatient (REF) | payer MEDICAID, SELFPAY ==
--- NOTE | ~2023-11-29 | MM_ITS ---
EXAMINATION: MM SCREENING DIGITAL BREAST TOMOSYNTHESIS, BILATERAL CLINICAL INFORMATION: Screening. Asymptomatic. COMPARISON: Mammography: This study is compared with prior exams dating back to 2019. TECHNIQUE: Digital breast tomosynthesis is performed in both the craniocaudal and mediolateral oblique views along with computer-aided detection (CAD). Synthesized 2D images are generated from the tomosynthesis. FINDINGS: The breasts are heterogeneously dense, which may obscure small masses (ACR BI-RADS breast composition Category c). There is a focal asymmetry in the upper outer quadrant of the left breast. This warrants additional mammographic and targeted sonographic imaging. There is a tissue marker in the upper outer quadrant of the right breast from prior benign percutaneous biopsy. MM/MM tomosynthesis screening BI IMPRESSION: Focal asymmetry of the left breast warrants additional mammographic and targeted sonographic imaging. No mammographic signs of malignancy right breast. ASSESSMENT: BI-RADS BI-RADS 0 - Incomplete: Needs additional Imaging. RECOMMENDATION: 1. Additional views of the left breast 2. Targeted ultrasound if warranted after review of the additional views. 3. Radiology department staff will contact the patient for additional imaging. Additional Imaging required This examination should not preclude the clinical evaluation of a suspicious palpable abnormality. This patient's information was entered into a reminder system with a target due date for their next mammogram.
== END 2023-11-29 15:40 | disposition home or self-care (01) ==
LOC: HO.MAMMO 15:39
PROVIDERS: PCP Family Medicine; Visit Provider Family Medicine
DX: Z12.31 Encounter for screening mammogram for malignant neoplasm of breast (principal)
CPT/HCPCS: 77063; 77067

== ENCOUNTER → 2023-11-29 16:00 | Outpatient (BNV) | payer MEDICAID, SELFPAY | PROVIDERS: PCP Family Medicine; Visit Provider Radiology Diagnostic Radiology | DX: Z12.31 Encounter for screening mammogram for malignant neoplasm of breast (principal) | CPT/HCPCS: 77063; 77067 ==

== ENCOUNTER 2024-01-26 14:20 | Outpatient (REF) | payer MEDICAID, SELFPAY ==
--- NOTE | ~2024-01-26 | US_ITS ---
EXAMINATION: MM DIAGNOSTIC DIGITAL BREAST TOMOSYNTHESIS, LEFT US BREAST LIMITED, LEFT MAMMOGRAPHY: CLINICAL INFORMATION: Callback from screening for oval mass 2:00 axis left breast posterior one third, new from prior examination. COMPARISON: Screening mammography 11/29/2023. 06/19/2021, 06/13/2020, 05/24/2019, and dating back to 2018. TECHNIQUE: Digital breast tomosynthesis is performed in the following views: 3-D spot compression left CC and MLO views. Computer-aided diagnosis was used for this study. FINDINGS: The breasts are heterogeneously dense, which may obscure small masses (ACR BI-RADS breast composition Category c). Spot magnification views demonstrate a oval circumscribed mass in the left breast measuring 2.1 x 1.6 x 1.6 cm, isodense, most likely representing a cyst. This will be interrogated by ultrasound. No additional suspicious finding is evident. ULTRASOUND: CLINICAL INFORMATION: As above. COMPARISON: None contributory. TECHNIQUE: Targeted sonographic evaluation was performed using a high frequency linear transducer. Attention was given to the upper outer quadrant left breast Selected archived documentation. FINDINGS: LEFT BREAST: In the 2:00 axis, 5 cm from the nipple, there is a simple anechoic cyst measuring 2.0 x 1.3 x 1.9 cm. This finding is benign. No additional abnormalities are seen. No follow-up recommended. US/US breast LT limited mamm only IMPRESSION: There are no findings suspicious for malignancy in the left breast. There is a simple cyst in the 2:00 axis correlating with the mammographic focus of concern. This is benign. No further follow-up recommended. Recommend the patient return to routine annual screening. OVERALL ASSESSMENT: Mammography: BI-RADS 2 - Benign Findings Ultrasound: BI-RADS 2 - Benign Findings RECOMMENDATION: 1 year F/U This patient's information was entered into a reminder system with a target due date for their next mammogram.
== END 2024-01-26 14:21 | disposition home or self-care (01) ==
LOC: HO.MAMMO 14:20
PROVIDERS: PCP Family Medicine; Visit Provider Family Medicine
DX: N64.89 Other specified disorders of breast (principal)
CPT/HCPCS: 76642; 77061; 77065

== ENCOUNTER → 2024-01-26 14:30 | Outpatient (BNV) | payer MEDICAID, SELFPAY | PROVIDERS: PCP Family Medicine; Visit Provider Radiology Diagnostic Radiology | DX: R92.8 Other abnormal and inconclusive findings on diagnostic imaging of breast (principal) | CPT/HCPCS: 76642; 77061; 77065 ==

== ENCOUNTER 2024-02-02 14:58 | Outpatient (AMB) | payer MEDICAID, SELFPAY ==
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
[2024-02-02 15:01] VITALS: BP 130/80; PULSE 66; BMI 38.7
== END 2024-02-02 15:28 | disposition home or self-care (01) ==
PROVIDERS: PCP Family Medicine; Visit Provider Internal Medicine
DX: R07.2 Precordial pain (principal); I49.9 Cardiac arrhythmia, unspecified
CPT/HCPCS: 93010; 99213

== ENCOUNTER → 2024-02-02 14:58 | Outpatient (BNVA) | payer MEDICAID, SELFPAY | PROVIDERS: PCP Family Medicine; Visit Provider Internal Medicine | DX: R07.2 Precordial pain (principal) | CPT/HCPCS: 93005; 99212 ==

== ENCOUNTER → 2024-02-22 14:48 | Outpatient (REF) | payer MEDICAID, SELFPAY ==
--- NOTE | 2024-02-22 14:51 | CA_ITS ---
Transthoracic Echocardiogram Patient (Last, First, Middle): Janelle Lenó G Gender: Female Date of : 1975 Age: 49 Procedure Date: 02/22/2024 Procedure Type: Transthoracic Echocardiogram Location: OP Height: 157. cm Weight: 95.71 kg BSA: 1.95 m2 Heart Rate: bpm BP: 130 / 80 mmHg Potato Sorter: JACOBO Swenson MD: Ayo Moura MD Report Developer: Ranjith Rosas MD Symptoms: R07.2 - Precordial pain Study Quality: Fair ECG Rhythm: Sinus Conclusions: - 1. Normal LV ejection fraction 55-60% with normal filling pattern 2. Mildly dilated left atrium 3. Normal cardiac valvular Doppler 4. Upper limits of normal RV systolic pressure with at least moderately elevated right atrial pressures of unclear origin 5. No gross pericardial effusion Findings Left Ventricle Normal left ventricular size, thickness, and systolic function. The visually estimated ejection fraction is between 55-60%. Spectral Doppler is indicative of a normal filling pattern. Right Ventricle Normal right ventricular cavity size and systolic function. Atria The left atrium is mildly dilated. Interatrial shunt cannot be excluded. The right atrium is normal in size. Aortic Valve Normal aortic valve structure and function. There is no aortic valve stenosis. There is no aortic valve regurgitation. Mitral Valve Normal mitral valve structure and function. There is trace mitral valve regurgitation. There is no mitral valve stenosis. Pulmonic Valve The pulmonic valve is likely normal. There is trace pulmonic valve regurgitation. Tricuspid Valve Normal tricuspid valve structure. There is trace tricuspid valve regurgitation. Moderately elevated right atrial pressure. Great Vessels The pulmonary artery was not well visualized. There is no dilatation of the ascending aorta measuring 2.70 cm. Venous The inferior vena cava is moderately dilated and collapses less than 50% with inspiration. Pericardium/Pleural There is no evidence of pericardial effusion. Prior Study Comparison No prior study available for comparison. Measurements 2D Linear Measurements IVSd: 0.95 0.6-0.9/0.6-1.0 cm LVIDd: 4.31 3.9-5.3/4.2-5.9 cm LVIDd Index: 2.21 2.4-3.2/2.2-3.1 cm/m2 LVIDs: 3.15 2.0-3.6 cm LVPWd: 0.88 0.7-1.1 cm Ao Root: 3.10 2.1-3.5 cm LA Diam: 3.50 2.7-3.8/3.0-4.0 cm LAIDs Index: 1.79 1.5-2.3 cm/m2 LV Mass: 158.06 67-162/88-224 g LV Mass Index: 81.06 43-95/49-115 g/m2 LVOT Diam: 2.00 3.0+(-)1.3 cm 2D Systolic Function EF 4C: 61.70 >55% EF 2C: 59.90 >55% EF BiP: 59.30 >55% Mitral Valve MV Pk E: 0.92 MV PK A: 0.54 MV Decel Time: 284.00 E/A: 1.70 E'Lateral: 11.90 E'Medial: 8.81 E/E' Med: 10.40 E/E' Lat: 7.70 PHT: 83.00 MVA PHT: 2.65 Decel [place]: 3.23 Aortic Valve AoV Pk Leonel: 1.55 AoV Mn Leonel: 1.01 AoV VTI: 0.35 AoV Pk Grad: 10.00 Aov Mn Grad: 5.00 [place] Cont.VTI: 2.14 LVOT LVOT Pk Leonel: 1.01 LVOT Mn Leonel: 0.68 LVOT VTI: 0.24 LVOT Pk Grad: 4.00 LVOT Mn Grad: 2.00 LVOT Diam: 2.00 LVOT Area: 3.14 Diastolic Function MV Pk E: 0.92 MV Pk A: 0.54 E/A: 1.70 E'Medial: 8.81 E/E' Med: 10.40 E' Laterial: 11.90 E/E' Lat: 7.70 Right Ventricle TAPSE (mm): 22.20 TVS' Leonel: 13.90 Tricuspid Valve TR Pk Leonel: 2.52 TR Pk Grad: 25.00 RA Press: 15.00 RVSP: 40.00 Great Vessels Aorta Ao Root-2D: 3.10 2.0-3.7 cm Ao Asc: 2.70 2.1-3.4 cm Ao Arch: 2.50 Updated in Other Vendor System with Status of Final Ranjith Rosas MD electronically signed on 02/22/2024 3:57:20 PM with status of Final
== END ==
LOC: HO.CARD 14:48
PROVIDERS: PCP Family Medicine; Visit Provider Internal Medicine
DX: R07.2 Precordial pain (principal)
CPT/HCPCS: 93306

== ENCOUNTER → 2024-02-22 14:51 | Outpatient (BNV) | payer MEDICAID, SELFPAY | PROVIDERS: PCP Family Medicine; Visit Provider Internal Medicine Cardiovascular Disease | DX: R07.2 Precordial pain (principal) | CPT/HCPCS: 93306 ==

== ENCOUNTER → 2024-03-22 10:59 | Outpatient (REF) | payer MEDICAID, SELFPAY ==
--- NOTE | 2024-03-22 11:10 | CA_ITS ---
Acquisition Time: 2024-03-22 11:13:10 Total Exercise Time: 00:08:26 Test Indications: CP Medications: SEE H Protocol: DIANA Max HR: 193 BPM 112% of Pred: 172 BPM Max BP: 150/062 mmHG Max Work Load: 10.1 METS Exercise stress test with exercise 8 min 26 sec of Diana protocol, achieving 94% MPHR, without anginal symptoms, with isolated PACs, with normotensive response to exercise, without EKG changes meeting criteria for ischemia. Echo images obtained by tech at rest and immediately post peak exercise. Definity contrast used. Test reviewed with Dr Moura. Referred By: Ayo Moura Overread By: CHILANGO BUTLER
== END ==
LOC: HO.CARD 10:59
PROVIDERS: PCP Family Medicine; Visit Provider Internal Medicine
DX: R07.2 Precordial pain (principal)
CPT/HCPCS: 93350; Q9957

== ENCOUNTER → 2024-03-22 11:10 | Outpatient (BNV) | payer MEDICAID, SELFPAY | PROVIDERS: PCP Family Medicine; Visit Provider Nurse Practitioner Family | DX: R94.31 Abnormal electrocardiogram [ECG] [EKG] (principal); I49.3 Ventricular premature depolarization; R07.9 Chest pain, unspecified | CPT/HCPCS: 93016; 93018; 93350; 93352 ==

== ENCOUNTER 2024-05-08 09:22 | Outpatient (REF) | payer MEDICAID, SELFPAY | END 2024-05-08 09:23 | disposition home or self-care (01) | LOC: HO.XRAY 09:22 | PROVIDERS: PCP Family Medicine; Visit Provider Nurse Practitioner | DX: M25.551 Pain in right hip (principal) | CPT/HCPCS: 73502 ==

== ENCOUNTER 2024-05-25 10:30 | Emergency (ER) | payer MEDICAID, SELFPAY ==
[2024-05-25 10:48] VITALS: BP 164/84; PULSE 61; RESP 18; TEMP 36.7; O2SAT 99; BMI 36.4
[2024-05-25 11:07] LABS: Basophils Absolute Auto 0.1 X10*3/uL (0.0-0.2); Basophils Percent Auto 0.9 % (0-2); Eosinophils Absolute Auto 0.2 X10*3/uL (0.0-0.4); Eosinophils Percent Auto 3.5 % (0-4); Hematocrit 42.3 % (37.0-47.0); Hemoglobin 13.6 g/dl (12.0-16.0); Imm Gran Abs Auto 0.02 X10*3/uL (0.00-0.03); Imm Gran Pct Auto 0.3 % (0.0-0.4); Lymphocytes Absolute Auto 2.1 X10*3/uL (1.2-4.9); Lymphocytes Percent Auto 35.9 % (20-40); MANUAL DIFF FLAG NO; Mean Corpuscular HGB Conc 32.2 g/dl (31.0-35.0); Mean Corpuscular Hemoglobin 26.5 pg (27.0-33.0); Mean Corpuscular Volume 82.3 fL (80.0-98.0); Mean Platelet Volume 10.3 fL (9.4-12.3); Monocytes Absolute Auto 0.5 X10*3/uL (0.1-1.2); Monocytes Percent Auto 8.3 % (2-11); Neutrophils Absolute Auto 2.9 x10*3/uL (2.0-8.3); Neutrophils Percent Auto 51.1 % (45-73); Platelet Count 236 X10*3/uL (160-400); Red Blood Count 5.14 X10*6/uL (4.20-5.50); White Blood Count 5.8 X10*3/uL (4.8-10.8)
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
[2024-05-25 11:30] LABS: Alanine Aminotransferase 22 U/L (0-31); Albumin Level 4.1 g/dL (3.5-5.0); Alkaline Phosphatase 124 U/L (39-117); Anion Gap 9 (12-20); Aspartate Amino Transferase 20 U/L (5-31); Bilirubin Total 0.3 mg/dL (0.0-1.0); Blood Urea Nitrogen 16 mg/dL (9-16); Calcium 9.3 mg/dL (8.4-10.2); Carbon Dioxide 28 mmol/L (22-29); Chloride 109 mmol/L (96-108); Creatinine Clr Calc Pharmacy 86.6; Estimated Glomerular Filt Rate > 60; Glucose Random 81 mg/dL (60-115); Potassium 3.9 mmol/L (3.3-5.1); Sodium 142 mmol/L (135-145); Total Protein 7.6 g/dL (6.5-8.0)
--- NOTE | 2024-05-25 11:33 | ECG_ITS ---
Test Reason : dizziness Blood Pressure : / mmHG Vent. Rate : 054 BPM Atrial Rate : 054 BPM P-R Int : 154 ms QRS Dur : 088 ms QT Int : 442 ms P-R-T Axes : 056 023 017 degrees QTc Int : 419 ms Sinus bradycardia Otherwise normal ECG When compared with ECG of 10-MAR-2022 18:36, No significant change was found Referred By: Blanca Sanchez Electronically Signed By:CARLITOS GARZA MD
[2024-05-25 12:04] LABS: B Type Natriuretic Peptide 18 pg/mL (<100)
[2024-05-25 12:06] LABS: Troponin-I High Sensitivity < 2.7 ng/L (<3.5-17.0)
[2024-05-25] MEDS: Ondansetron ODT 4 MG TAB.RAPDIS TRANSLINGU (12:44)
[2024-05-25] MEDS: Meclizine HCl 25 MG TABLET PO (12:44)
[2024-05-25 12:46] VITALS: BP 143/91; PULSE 61; RESP 18; O2SAT 99
[2024-05-25 13:22] VITALS: BP 147/81; PULSE 59
[2024-05-25 13:23] VITALS: BP 154/90; PULSE 54
[2024-05-25 13:25] VITALS: BP 166/88; PULSE 58
[2024-05-25 13:25] LABS: Influenza A PCR NEGATIVE (Negative); Influenza B PCR NEGATIVE (Negative); Resp Syncy Virus RNA Qual PCR NEGATIVE (Negative); SARS COV2 PCR INHOUSE NEGATIVE (Negative)
[2024-05-25 13:41] LABS: Appearance Urine Clear; Color Urine Yellow; Glucose Urine UA Negative (Negative); Leukocyte Esterase Urine Trace (Negative); Nitrite Urine Negative (Negative); UMIC TRIGGER UACC YES; UPreg QC Valid YES; Urine Blood Negative (Negative); Urine Ketones Negative (Negative); Urine Pregnancy NEGATIVE (NEGATIVE); Urine Protein Negative (Neg-Trace)
[2024-05-25 13:47] LABS: Bacteria Urine None Seen (None Seen); Hyaline Casts Urine 0-2 /LPF (0-2); RBC Urine 0-2 /HPF (0-2); Squamous Epithelial Cell Urine 0-2 /HPF (0-2); WBC Urine 0-5 /HPF (0-5)
[2024-05-25 14:28] VITALS: BP 134/80; PULSE 58; RESP 16; TEMP 36.7; O2SAT 97
[2024-05-25 14:52] LABS: Lipase 18 U/L (8-78)
== END 2024-05-25 14:30 | disposition home or self-care (01) ==
PROVIDERS: Nurse Practitioner Family; Emergency Provider Emergency Medicine; PCP Family Medicine
DX: R42 Dizziness and giddiness (principal); Z03.818 Encounter for observation for suspected exposure to other biological agents ruled out; J45.909 Unspecified asthma, uncomplicated; Z79.899 Other long term (current) drug therapy
CPT/HCPCS: 0241U; 36415; 80053; 81001; 81025; 83690; 83880; 84484; 85025; 93005; 99283; 99284

== ENCOUNTER → 2024-05-25 11:33 | Outpatient (BNV) | payer MEDICAID, SELFPAY | PROVIDERS: Emergency Provider Emergency Medicine; PCP Family Medicine; Visit Provider Internal Medicine Cardiovascular Disease | DX: R42 Dizziness and giddiness (principal); R00.1 Bradycardia, unspecified | CPT/HCPCS: 93010 ==

== ENCOUNTER 2024-08-14 16:03 | Outpatient (REF) | payer MEDICAID, SELFPAY ==
--- OUTSIDE RECORDS SUMMARY | 2024-08-14 16:32 | XMS_ITS | Encounter Summary ---
Author Organization [employer] Address [address] [facility] [address], [place] [address] Care Team Providers Care Patrol Conductor Name Role Phone Corin Doyle MD Primary Care Provider [phone] Reason for Visit * Reason Onset Date Comments Referral 10/18/2023 Encounter Details Date Type Department Care Team ([facility] st Contact Info) Description 10/18/2023 Telephone [facility] MEDICINE [address] [place] [address] Corin Doyle MD [address] [place] [address] Referral Social History Tobacco Use Types Packs/Day Years Used Date Smoking Tobacco: Never Passive Smoke Exposure: Never Smokeless Tobacco: Never Alcohol Use Standard Drinks/Week Comments Never 0 (1 standard drink = 0.6 oz pur e alcohol) Depression Answer Date Recorded Patient Health Questionnaire-9 Score 0 11/23/2022 Housing Stability Answer Date Recorded What is your housing situation today? I have rubina mccurdy 05/23/[address] you li ve. Do you have problems with any of the following? None of the above 05/23/2023 Food Insecurity Answer Date Recorded Within the past 12 months, y ou worried that your food would run out before you got money to buy more: Never True 05/23/2023 Within the past 12 months,th e food you bought just didn't last and you didn't have enough money to get more: Never True 12/2022 Transportation Answer Date Recorded In the past 12 months, has l ack of transportation kept you from medical appts, meetings, work or from getting things needed for daily living? No 05/23/2023 Utilities Answer Date Recorded In the past 12 months, has t he electric, gas, oil or water company threatened to shut off services in your home? No 05/23/2023 Depression Answer Date Recorded Patient Health Questionnaire-2 Score 0 11/23/2022 Comments Unknown Sex and Gender Information Value Date Recorded Sex Assigned at Female 05/17/2022 10:16 AM EDT Legal Sex Female 10:16 AM EDT Gender Identity Female 05/17/2022 10:16 AM EDT Sexual Orientation Straight 05/17/2022 10 :16 AM EDT documented as of this encounter Miscellaneous Notes * Telephone Encounter - Celine Dupont - 10/18/2023 3:42 PM EDT Tc from Danay with [facility] calling in regards referral for cardiology, stated pt discussed referral on last appt with PCP on 08/08 and the referral is to control high blood pressure. documented in this encounter Plan of Treatment Upcoming Encounters Date Type Department Care Team (Late st Contact Info) Description 11/22/2024 3:00 PM EDT Office Visit [facility] ADULT DENTAL [address] [place] [address] Belinda Randall documented as of this encounter Visit Diagnoses Not on filedocumented in this encounter Additional Health Concerns Assessment Noted Time PHQ-9 Depression Total Score: 0 11/24/19 23 3:58 PM EDT documented as of this encounter Care Teams Patrol Conductor Relationship Specialty Start Date End Date Corin Doyle MD [address] [place] [address] PCP - General Family Medicine 07/18/18 Danay Carmen Debt Recovery OfficerHandkerchief Folder 12/09/23 documented as of this encounter
--- OUTSIDE RECORDS SUMMARY | 2024-08-14 16:32 | XMS_ITS | Encounter Summary ---
Author Organization [employer] Address [address] [facility] [address] [place] [address] Care Team Providers Care Requisition Approver Name Role Phone Corin Doyle MD Primary Care Provider [phone] Reason for Visit * Reason Onset Date Comments Med Refill 01/25/2024 Encounter Details Date Type Department Care Team (Late st Contact Info) Description 01/25/2024 Refill [facility] MEDICINE [address] [place], [place] [phone] Corin Doyle MD [address] [place], [place] [phone] Social History Tobacco Use Types Packs/Day Years [...] AM EDT documented as of this encounter Plan of Treatment Upcoming Encounters Date Type Department Care Team (Late st Contact Info) Description 11/22/2024 3:00 PM EDT Office Visit [facility] ADULT DENTAL [address] [place] [address] Belinda Randall documented as of this encounter Visit Diagnoses Not on filedocumented in this encounter Additional Health Concerns Assessment Noted Time PHQ-9 Depression Total Score: 0 11/24/19 23 3:58 PM EDT documented as of this encounter Care Teams Requisition Approver Relationship Specialty Start Date End Date Corin Doyle MD [address] [place] [address] PCP - General Family Medicine 07/18/18 Danay Carmen Grinding OperatorCalibration Laboratory Technician 12/09/23 documented as of this encounter
--- OUTSIDE RECORDS SUMMARY | 2024-08-14 16:32 | XMS_ITS | Encounter Summary ---
Author Organization [employer] Address [address] [facility] 7 [place] [address] Care Team Providers Care Development Consultant Name Role Phone Corin Doyle MD Primary Care Provider [phone] Reason for Visit * Reason Onset Date Comments Med Refill 12/13/2023 Encounter Details Date Type Department Care Team ([facility] st Contact Info) Description 12/13/2023 Refill [facility] MEDICINE [address] [place], [place] [phone] Corin Doyle MD [address] [place], [place] [phone] Social History Tobacco Use Types Packs/Day Years [...] Description 11/22/2024 3:00 PM EDT Office Visit [facility] ADULT DENTAL [address] [place] [address] Belinda Randall documented as of this encounter Visit Diagnoses Not on filedocumented in this encounter Additional Health Concerns Assessment Noted Time PHQ-9 Depression Total Score: 0 11/24/19 23 3:58 PM EDT documented as of this encounter Care Teams Development Consultant Relationship Specialty Start Date End Date Corin Doyle MD [address] [place] [address] PCP - General Family Medicine 07/18/18 Danay Carmen CaddieAssembly Operator 12/09/23 documented as of this encounter
--- OUTSIDE RECORDS SUMMARY | 2024-08-14 16:32 | XMS_ITS | Encounter Summary ---
Author Organization [employer] Address [address] [facility] [address] [place] [address] Care Team Providers Care Enrolled Agent Name Role Phone Corin Doyle MD Primary Care Provider [phone] Reason for Visit * Reason Onset Date Comments Med Refill 02/19/2024 Encounter Details Date Type Department Care Team (Late st Contact Info) Description 02/19/2024 Refill [facility] MED[facility]INE [address] [place] [address] Gabriela López MD [address] [place], [place] [phone] Lumbar sprain, initial encounter Social History Tobacco Use Types Packs/Day Years Used Date Smoking Tobacco: Never Passive Smoke Exposure: Never Smokeless Tobacco: Never Alcohol Use Standard Drinks/Week Comments Never 0 (1 standard drink = 0.6 oz pur e alcohol) Depression Answer Date Recorded Patient Health Questionnaire-9 Score 0 11/23/2022 Housing Stability Answer Date Recorded What is your housing situation today? I have rubian mccurdy 05/23/[address] you [...] Description 11/22/2024 3:00 PM EDT Office Visit [facility] ADULT DENTAL [address] [place] [address] Belinda Randall documented as of this encounter Visit Diagnoses Diagnosis Lumbar sprain, initial encounter documented in this encounter Additional Health Concerns Assessment Noted Time PHQ-9 Depression Total Score: 0 11/24/19 23 3:58 PM EDT documented as of this encounter Care Teams Enrolled Agent Relationship Specialty Start Date End Date Corin Doyle MD [address] [place] [address] PCP - General Family Medicine 07/18/18 Danay aCrmen Contract Management SpecialistSenior Applications Analyst 12/09/23 documented as of this encounter
--- OUTSIDE RECORDS SUMMARY | 2024-08-14 16:32 | XMS_ITS | Encounter Summary ---
Author Organization [employer] Address [address] [facility] [address] [place] [address] Care Team Providers Care Mother Superior Name Role Phone Corin Doyle MD Primary Care Provider [phone] Reason for Visit * Reason Comments Med Change Request Encounter Details Date Type Department Care Team ([facility] Contact Info) Description 01/08/2024 Refill [facility] MEDICINE [address] [place], [place] [phone] Corin Doyle MD [address] [place], [place] [phone] Social History Tobacco Use Types Packs/Day Years [...] Description 11/22/2024 3:00 PM EDT Office Visit [facility] ADULT DENTAL [address] [place] [address] Belinda Randall documented as of this encounter Visit Diagnoses Not on filedocumented in this encounter Additional Health Concerns Assessment Noted Time PHQ-9 Depression Total Score: 0 11/24/19 23 3:58 PM EDT documented as of this encounter Care Teams Mother Superior Relationship Specialty Start Date End Date Corin Doyle MD [address] [place] [address] PCP - General Family Medicine 07/18/18 Danay Carmen Rib SawyerOsteologist 12/09/23 documented as of this encounter
--- OUTSIDE RECORDS SUMMARY | 2024-08-14 16:32 | XMS_ITS | Encounter Summary ---
Author Organization [employer] Address [address] [facility] [address] [place] [address] Care Team Providers Care Personnel Coordinator Name Role Phone Corin Doyle MD Primary Care Provider [phone] Reason for Visit * Reason Onset Date Comments Med Refill 03/23/2024 Encounter Details Date Type Department Care Team (Late st Contact Info) Description 03/23/2024 Refill [facility] MEDICINE [address] [place], [place] [phone] Corin Doyle MD [address] [place], [place] [phone] Social History Tobacco Use Types Packs/Day Years [...] Description 11/22/2024 3:00 PM EDT Office Visit [facility] ADULT DENTAL [address] [place] [address] Belinda Randall documented as of this encounter Visit Diagnoses Not on filedocumented in this encounter Additional Health Concerns Assessment Noted Time PHQ-9 Depression Total Score: 0 11/24/19 23 3:58 PM EDT documented as of this encounter Care Teams Personnel Coordinator Relationship Specialty Start Date End Date Corin Doyle MD [address] [place] [address] PCP - General Family Medicine 07/18/18 Danay Carmen Core PilerFood Service Manager 12/09/23 documented as of this encounter
--- OUTSIDE RECORDS SUMMARY | 2024-08-14 16:33 | XMS_ITS | Encounter Summary ---
Author Organization [employer] Address [address] 7[address] [place] [address] Care Team Providers Care Computer Analyst Supervisor Name Role Phone Corin Doyle MD Primary Care Provider [phone] Encounter Details Date Type Department Care Team (Latest Contact Info) Description 08/14/2024 Travel Social History Tobacco Use Types Packs/Day Years Used Date Smoking Tobacco: Never Passive Smoke Exposure: Never Smokeless Tobacco: Never Alcohol Use Standard Drinks/Week Comments Never 0 (1 standard drink = 0.6 oz pur e alcohol) Depression Answer Date Recorded Patient Health Questionnaire-9 Score 0 08/14/2024 Patient Health Questionnaire-9 Score 0 08/14/2024 Last PHQ-9: Questionnaire Data Not on file 0 08/14/2024 Housing Stability Answer Date Recorded What is your housing situation today? I have rubina mccurdy 08/14/[address] you li ve. Do you have problems with any of the following? None of the above 08/14/2024 Food Insecurity Answer Date Recorded Within the past 12 months, y ou worried that your food would run out before you got money to buy more: Never True 08/14/2024 Within the past 12 months,th e food you bought just didn't last and you didn't have enough money to get more: Never True Transportation Answer Date Recorded In the past 12 months, has l ack of transportation kept you from medical appts, meetings, work or from getting things needed for daily living? No 08/14/2024 Utilities Answer Date Recorded In the past 12 months, has t he electric, gas, oil or water company threatened to shut off services in your home? No 08/14/2024 Depression Answer Date Recorded Patient Health Questionnaire-2 Score 0 08/14/2024 Internet Access Answer Date Recorded Internet Access Q1 Yes 08/14/2024 Internet Access Q2 Not on file 08/14/2024 Comments Unknown Sex and Gender Information Value [...] Description 11/22/2024 3:00 PM EDT Office Visit [facility] ADULT DENTAL [address] [place] [address] Belinda Randall documented as of this encounter Visit Diagnoses Not on filedocumented in this encounter Additional Health Concerns Assessment Noted Time PHQ-9 Depression Total Score: 0 08/14/19 25 3:31 PM EST documented as of this encounter Care Teams Computer Analyst Supervisor Relationship Specialty Start Date End Date Corin Doyle MD [address] [place] [address] PCP - General Family Medicine 07/18/18 Danay Carmen Client Relations AssociateAviation Medicine Specialist 12/09/23 documented as of this encounter
--- OUTSIDE RECORDS SUMMARY | 2024-08-14 16:33 | XMS_ITS | Encounter Summary ---
Author Organization [employer] Address [address] [facility] 7 [place] [address] Care Team Providers Care Eligibility Services Representative Name Role Phone Corin Doyle MD Primary Care Provider [phone] Reason for Visit * Reason Onset Date Comments Med Refill 11/14/2023 Encounter Details Date Type Department Care Team ([facility] st Contact Info) Description 11/14/2023 Refill [facility] MEDICINE [address] [place], [place] [phone] Corin Doyle MD [address] [place], [place] [phone] Rash Social History Tobacco Use Types Packs/Day Years [...] Description 11/22/2024 3:00 PM EDT Office Visit [facility] ADULT DENTAL [address] [place] [address] Belinda Randall documented as of this encounter Visit Diagnoses Diagnosis Rash Rash and other nonspecific skin eruption documented in this encounter Additional Health Concerns Assessment Noted Time PHQ-9 Depression Total Score: 0 11/24/19 23 3:58 PM EDT documented as of this encounter Care Teams Eligibility Services Representative Relationship Specialty Start Date End Date Corin Doyle MD [address] [place] [address] PCP - General Family Medicine 07/18/18 Danay Carmen Motor And Chassis InspectorField Service Specialist 12/09/23 documented as of this encounter
--- OUTSIDE RECORDS SUMMARY | 2024-08-14 16:33 | XMS_ITS | Encounter Summary ---
Author Organization [employer] Address [address] [facility] 7 [place] [address] Care Team Providers Care Public Health Outreach Worker Name Role Phone Corin Doyle MD Primary Care Provider [phone] Reason for Visit * Reason Onset Date Comments Med Refill 03/29/2024 Encounter Details Date Type Department Care Team (Late st Contact Info) Description 03/29/2024 Refill [facility] MEDICINE 230 [place], [place] [phone] Corin Doyle MD [address] [place], [place] [phone] Social History Tobacco Use Types Packs/Day Years [...] Description 11/22/2024 3:00 PM EDT Office Visit [facility] ADULT DENTAL [address] [place] [address] Belinda Randall documented as of this encounter Visit Diagnoses Not on filedocumented in this encounter Additional Health Concerns Assessment Noted Time PHQ-9 Depression Total Score: 0 11/24/19 23 3:58 PM EDT documented as of this encounter Care Teams Public Health Outreach Worker Relationship Specialty Start Date End Date Corin Doyle MD [address] [place] [address] PCP - General Family Medicine 07/18/18 Danay Carmen Supplier Relationship DirectorNeurological Surgeon 12/09/23 documented as of this encounter
--- OUTSIDE RECORDS SUMMARY | 2024-08-14 16:33 | XMS_ITS | Encounter Summary ---
Author Organization [employer] Address [address] [place] [address], [place] [address] Care Team Providers Care Clinical Therapist Name Role Phone Corin Doyle MD Primary Care Provider [phone] Reason for Visit * Reason Onset Date Comments Referral 01/26/2023 Encounter Details Date Type Department Care Team ([facility] st Contact Info) Description 01/26/[address] [facility] MEDICINE [address] [place] [address] Corin Doyle MD [address] [place] [address] Referral Social History Tobacco Use Types Packs/Day Years Used Date Smoking Tobacco: Never Passive Smoke Exposure: Never Smokeless Tobacco: Never Alcohol Use Standard Drinks/Week Comments Never 0 (1 standard drink = 0.6 oz pur e alcohol) Depression Answer Date Recorded Patient Health Questionnaire-9 Score 0 11/23/2022 Depression Answer Date Recorded Patient Health Questionnaire-2 Score 0 11/23/2022 Comments Unknown Sex and Gender Information Value Date Recorded Sex Assigned at Female 05/17/2022 10:16 AM EDT Legal Sex Female 10:16 AM EDT Gender Identity Female 05/17/2022 10:16 AM EDT Sexual Orientation Straight 05/17/2022 10 :16 AM EDT documented as of this encounter Miscellaneous Notes * Telephone Encounter - Corin Doyle MD - 02/03/2023 2:37 PM EDT Referral done * Telephone Encounter - Nichelle Sandoval - 01/26/2023 3:24 PM EDT Tc from gabriella with ICP requesting a referral for therapy. States pt is having depression/anxiety. Pt is also hearing voices and seeing a man documented in this encounter Plan of Treatment Upcoming Encounters Date Type Department Care Team (Late st Contact Info) Description 11/22/2024 3:00 PM EDT Office Visit [facility] ADULT DENTAL [address] [place] [address] Belinda Randall documented as of this encounter Visit Diagnoses Not on filedocumented in this encounter Additional Health Concerns Assessment Noted Time PHQ-9 Depression Total Score: 0 11/24/19 23 3:58 PM EDT documented as of this encounter Care Teams Clinical Therapist Relationship Specialty Start Date End Date Corin Doyle MD [address] [place] [address] PCP - General Family Medicine 07/18/18 Gabriella Carmen Copy CoordinatorService Agent 12/09/23 documented as of this encounter
--- OUTSIDE RECORDS SUMMARY | 2024-08-14 16:33 | XMS_ITS | Encounter Summary ---
Author Organization [employer] Address [address] [facility] 7 [place] [address] Care Team Providers Care Horse Racer Name Role Phone Corin Doyle MD Primary Care Provider [phone] Reason for Visit * Reason Onset Date Comments Med Refill 01/25/2024 Encounter Details Date Type Department Care Team (Late st Contact Info) Description 01/25/2024 Refill [facility] MEDICINE 230 [place], [place] [phone] Corin Doyle MD 230 [place], [place] [phone] Social History Tobacco Use Types Packs/Day Years [...] Description 11/22/2024 3:00 PM EDT Office Visit [facility] ADULT DENTAL [address] [place] [address] Belinda Randall documented as of this encounter Visit Diagnoses Not on filedocumented in this encounter Additional Health Concerns Assessment Noted Time PHQ-9 Depression Total Score: 0 11/24/19 23 3:58 PM EDT documented as of this encounter Care Teams Horse Racer Relationship Specialty Start Date End Date Corin Doyle MD [address] [place] [address] PCP - General Family Medicine 07/18/18 Danay Carmen Resident Care AideSales Financial Analyst 12/09/23 documented as of this encounter
--- OUTSIDE RECORDS SUMMARY | 2024-08-14 16:33 | XMS_ITS | Encounter Summary ---
Author Organization [employer] Address [address] [facility] 7 [place] [address] Care Team Providers Care Business Systems Lead Name Role Phone Corin Doyle MD Primary Care Provider [phone] Reason for Visit * Reason Onset Date Comments Nurse Triage 07/26/2024 Encounter Details Date Type Department Care Team ([facility] st Contact Info) Description 07/26/2024 Telephone [facility] MEDICINE [address] [place] [address] Corin Doyle MD [address] [place] [address] Nurse Triage Social History Tobacco Use Types Packs/Day Years [...] encounter Miscellaneous Notes * Telephone Encounter - Brittny Rodriges LPN - 07/26/2024 12:52 PM EST Triage call returned with BLS # [id number] Lakesha. Patient reports onset of illness yesterday. Had fever yesterday and then had episodes of vomiting and diarrhea thru the night. Poor PO this morning due to nausea. No fever today. No constant abdominal pain. No blood in diarrhea or vomiting reported. Disposition reviewed and patient declined evaluation at [facility] now as she feels too weak. Patient advised home care recommendations and reasons to call back. PO fluids and light diet advised and that OTC medication available as needed OTC for diarrhea. Patient verbalized understanding and in agreement with plan. Multiple (2) protocols were used on this call. Disposition for Call: Home Care Protocol Used: Vomiting (Adult) Protocol-Based Disposition: Home Care Positive Triage Question: * Severe vomiting (e.g., 6 or more times/day, vomits everything) BUT hydrated * All higher-acuity triage questions were negative Protocol Used: Diarrhea (Adult) Protocol-Based Disposition: See in Office or Video Visit Today Override (Final) Disposition: Home Care Override Reason: Caller refused suggested disposition Override Notes: Patient advised [facility] hours for today. Patient declined. Video visit offer not recorded Positive Triage Question: * Severe diarrhea (e.g., 7 or more times / day more than normal) and present > 24 hours (1 day) * All higher-acuity triage questions were negative Care Advice Discussed: * Fluid Therapy During Mild to Moderate Diarrhea * Food and Nutrition During Mild to Moderate Diarrhea * Reasons To Call Back - You become worse * Telephone Encounter - Carmelo Stallworth - 07/26/2024 11:53 AM EST Symptoms: Diarrhea, Vomiting, Chills Outcome: Talk to a nurse or provider within 15 minutes Reason: Severe headache The caller accepted this outcome. documented in this encounter Plan of Treatment Upcoming Encounters Date Type Department Care Team (Late st Contact Info) Description 11/22/2024 3:00 PM EDT Office Visit [facility] ADULT DENTAL [address] [place] [address] Belinda Randall documented as of this encounter Visit Diagnoses Not on filedocumented in this encounter Additional Health Concerns Assessment Noted Time PHQ-9 Depression Total Score: 0 11/24/19 23 3:58 PM EDT documented as of this encounter Care Teams Business Systems Lead Relationship Specialty Start Date End Date Corin Doyle MD [address] [place] [address] PCP - General Family Medicine 07/18/18 Danay Carmen Interior PanelerManager Quantitative 12/09/23 documented as of this encounter
--- OUTSIDE RECORDS SUMMARY | 2024-08-14 16:33 | XMS_ITS | Encounter Summary ---
Author Organization [employer] Address [address] 7[address] [place] [address] Care Team Providers Care Correctional Supervisor Lieutenant Name Role Phone Corin Doyle MD Primary Care Provider [phone] Encounter Details Date Type Department Care Team ([facility] st Contact Info) Description 05/04/2024 Orders Only [facility] MEDICINE [address] [place], [place] [phone] Corin Doyle MD [address] [place], [place] [phone] Primary hypertension (Primary Dx); Acquired hypothyroidism; Hypokalemia; Class 2 obesity due to excess calories without serious comorbidity with body mass index (BMI) of 38.0 to 38.9 in adult; Adverse effect of thiazide diuretic, sequela Social History Tobacco Use Types Packs/Day Years [...] Description 11/22/2024 3:00 PM EDT Office Visit [facility] ADULT DENTAL [address] [place] [address] Belinda Randall Scheduled Orders Name Type Priority Associated Diagnoses Orde r Schedule Comprehensive Metabolic Panel Lab Routine Primary hypertension Expected: 05/04/2024 (Approximate), Expires: 05/04/2025 TSH with Reflex to Free T4 Lab Routine Acquired hypothyroidism Expected: 05/04/2024 (Approximate), Expires: 05/04/2025 Uric acid Lab Routine Hypokalemia Adverse effect of thiazide diuretic, sequela Expected: 05/04/2024, Expires: 05/04/2025 Magnesium Lab Routine Hypokalemia Expected: 05/04/2024 (Approximate), Expires: 05/04/2025 Lipid Panel with Reflex to Direct LDL Lab Routine Primary hypertension Expected: 05/04/2024 (Approximate), Expires: 05/04/2025 Hemoglobin A1c Lab Routine Acquired hypothyroidism Class 2 obesity due to excess calories without serious comorbidity with body mass index (BMI) of 38.0 to 38.9 in adult Adverse effect of thiazide diuretic, sequela Expected: 05/04/2024 (Approximate), Expires: 05/04/2025 Albumin, Random Urine W/Creatinine Lab Routine Primary hypertension Expected: 05/04/2024 (Approximate), Expires: 05/04/2025 documented as of this encounter Visit Diagnoses Diagnosis Primary hypertension- Primary Unspecified essential hypertension Acquired hypothyroidism Unspecified hypothyroidism Hypokalemia Hypopotassemia Class 2 obesity due to excess calories without serious comorbidity with body mass index (BMI) of 38.0 to 38.9 in adult Adverse effect of thiazide diuretic, sequela documented in this encounter Additional Health Concerns Assessment Noted Time PHQ-9 Depression Total Score: 0 11/24/19 23 3:58 PM EDT documented as of this encounter Care Teams Correctional Supervisor Lieutenant Relationship Specialty Start Date End Date Corin Doyle MD [address] [place] [address] PCP - General Family Medicine 07/18/18 Danay Carmen Binding Machine OperatorOperating Room Coordinator 12/09/23 documented as of this encounter
--- OUTSIDE RECORDS SUMMARY | 2024-08-14 16:33 | XMS_ITS | Encounter Summary ---
Author Organization [employer] Address [address] [place] [address] [address] Care Team Providers Care Adobe Flex Developer Name Role Phone Corin Doyle MD Primary Care Provider [phone] Reason for Visit * Reason Onset Date Comments triage 10/28/2022 Encounter Details Date Type Department Care Team ([facility] st Contact Info) Description 10/28/2022 Telephone [facility] MEDICINE 230 [place] [address] Corin Doyle MD [address] [place] [address] triage Social History Tobacco Use Types Packs/Day Years Used Date Smoking Tobacco: Never Passive Smoke Exposure: Never Smokeless Tobacco: Never Alcohol Use Standard Drinks/Week Comments Never 0 (1 standard drink = 0.6 oz pur e alcohol) Comments Unknown Sex and Gender Information Value Date Recorded Sex Assigned at Female 05/17/2022 10:16 AM EDT Legal Sex Female 10:16 AM EDT Gender Identity Female 05/17/2022 10:16 AM EDT Sexual Orientation Straight 05/17/2022 10 :16 AM EDT COVID-19 Exposure Response Date Recorded In the last 10 days, have yo u been in contact with someone who was confirmed or suspected to have Coronavirus/COVID-19? No / Unsure 10/28/2022 12:46 PM EDT documented as of this encounter Miscellaneous Notes * Telephone Encounter - Yolis Johns RN - 10/28/2022 11:47 AM EDT Triage call with [place] [employer] [place] [employer] [place] [id number] Pt reports burning with urination, bladder pressure, slight bilateral flank pain and frequency. Pt denies bad odor, fever. Pt is advised to come to [facility] to be seen today and Pt agrees with disposition. Pt is advised to increase fluid intake and include some cranberry juice and Pt agrees. Protocol Used: Urinary Symptoms (Adult) Protocol-Based Disposition: See in Office or Video Visit Today Video visit not offered Positive Triage Questions: * Side (flank) or lower back pain present * Urinating more frequently than usual (i.e., frequency) * All higher-acuity triage questions were negative Care Advice Discussed: * Reasons To Call Back - Fever occurs - Pain or burning with urination - Unable to urinate and bladder feels full - You become worse * Telephone Encounter - Jacki Baez - 10/28/2022 11:02 AM EDT Symptom: Urination Pain Outcome: Schedule a same-day appointment or talk to a nurse or provider today Reason: No high acuity concerns reported by caller The caller accepted this outcome documented in this encounter Plan of Treatment Upcoming Encounters Date Type Department Care Team (Late st Contact Info) Description 11/22/2024 3:00 PM EDT Office Visit [facility] ADULT DENTAL [address] [place] [address] Belinda Randall documented as of this encounter Visit Diagnoses Not on filedocumented in this encounter Care Teams Adobe Flex Developer Relationship Specialty Start Date End Date Corin Doyle MD [address] [place] [address] PCP - General Family Medicine 07/18/18 Danay Carmen Vendor Management AssociateSummer Intern 12/09/23 documented as of this encounter
--- OUTSIDE RECORDS SUMMARY | 2024-08-14 16:33 | XMS_ITS | Encounter Summary ---
Author Organization [facility] Address [address] [place] [address] 7 [place] [address] Care Team Providers Care Multi Needle Machine Operator Name Role Phone Corin Doyle MD Primary Care Provider [phone] Encounter Details Date Type Department Care Team (Latest Contact Info) Description 11/25/2021 Abstract [facility] CONVERSIONS Dental, Provider, DDS Social History Tobacco Use Types Packs/Day Years Used Date Smoking Tobacco: Never Assessed Comments Unknown Sex and Gender Information Value [...] Description 11/22/2024 3:00 PM EDT Office Visit [facility] ADULT DENTAL [address] [place] [address] Belinda Randall documented as of this encounter Visit Diagnoses Not on filedocumented in this encounter Care Teams Multi Needle Machine Operator Relationship Specialty Start Date End Date Corin Doyle MD [address] [place] [address] PCP - General Family Medicine 07/18/18 Danay Carmen Business Banking Sales AssistantCondenser Tube Tender 12/09/23 documented as of this encounter
--- OUTSIDE RECORDS SUMMARY | 2024-08-14 16:33 | XMS_ITS | Encounter Summary ---
Author Organization [employer] Address [address] [facility] 7 [place] [address] Care Team Providers Care Barrel Bridge Assembler Name Role Phone Corin Doyle MD Primary Care Provider [phone] Reason for Visit * Reason Onset Date Comments Med Refill 07/12/2024 Encounter Details Date Type Department Care Team ([facility] st Contact Info) Description 07/12/2024 Refill [facility] MEDICINE [address] [place], [place] [phone] Corin Doyle MD [address] [place], [place] [phone] Social History Tobacco Use Types Packs/Day Years [...] Description 11/22/2024 3:00 PM EDT Office Visit [facility] ADULT DENTAL [address] [place] [address] Belinda Randall documented as of this encounter Visit Diagnoses Not on filedocumented in this encounter Additional Health Concerns Assessment Noted Time PHQ-9 Depression Total Score: 0 11/24/19 23 3:58 PM EDT documented as of this encounter Care Teams Barrel Bridge Assembler Relationship Specialty Start Date End Date Corin Doyle MD [address] [place] [address] PCP - General Family Medicine 07/18/18 Danay Carmen Straightening Machine OperatorProfessor Of Environmental Engineering 12/09/23 documented as of this encounter
--- OUTSIDE RECORDS SUMMARY | 2024-08-14 16:33 | XMS_ITS | Encounter Summary ---
Author Organization [employer] Address [address] [facility] [address] [place] [address] Care Team Providers Care Wafer Cleaner Name Role Phone Corin Doyle MD Primary Care Provider [phone] Encounter Details Date Type Department Care Team ([facility] st Contact Info) Description 08/16/2023 Orders Only [facility] [address] [place], [place] [phone] Eddie Guerrero MD [address] [place], [place] [phone] Social History Tobacco Use Types Packs/Day Years [...] Office Visit [facility] ADULT DENTAL [address] [place] [address] Belinda Randall documented as of this encounter Visit Diagnoses Not on filedocumented in this encounter Additional Health Concerns Assessment Noted Time PHQ-9 Depression Total Score: 0 11/24/19 23 3:58 PM EDT documented as of this encounter Care Teams Wafer Cleaner Relationship Specialty Start Date End Date Corin Doyle MD [address] [place] [address] PCP - General Family Medicine 07/18/18 Danay Carmen Server ProgrammerLead Clinical Research Coordinator 12/09/23 documented as of this encounter
--- OUTSIDE RECORDS SUMMARY | 2024-08-14 16:33 | XMS_ITS | Encounter Summary ---
Author Organization [employer] Address [address] [facility] 7 [place] [address] Care Team Providers Care Finish Rolls Operator Name Role Phone Corin Doyle MD Primary Care Provider [phone] Encounter Details Date Type Department Care Team ([facility] st Contact Info) Description 08/14/2024 3:30 PM EST Office Visit [facility] MEDICINE [address] [place], [place] [phone] Corin Doyle MD [address] [place], [place] [phone] Primary hypertension (Primary Dx); Class 2 obesity due to excess calories without serious comorbidity with body mass index (BMI) of 38.0 to 38.9 in adult; Right hip pain; Dietary counseling; Exercise counseling Social History Tobacco Use Types Packs/Day Years [...] AM EDT documented as of this encounter Last Filed Vital Signs Vital Sign Reading Time Taken Comments Blood Pressure 124/79 08/14/2024 3:35 PM EST Pulse 77 08/14/2024 3:35 PM EST Temperature 36.2 ??C (97.1 ??F) 08/14/2024 3:35 PM ES T Respiratory Rate 15 08/14/2024 3:35 PM EST Oxygen Saturation 98% 08/14/2024 3:35 PM EST Inhaled Oxygen Concentration - - Weight 90.9 kg (200 lb 6.4 oz) 08/14/2024 3:35 P M EST Height 157.5 cm (5' 2 ) 08/14/2024 3:35 PM EST Body Mass Index 36.65 08/14/2024 3:35 PM EST documented in this encounter Plan of Treatment Upcoming Encounters Date Type Department Care Team (Late st Contact Info) Description 11/22/2024 3:00 PM EDT Office Visit [facility] ADULT DENTAL 230 [place] [address] Belinda Randall documented as of this encounter Visit Diagnoses Diagnosis Primary hypertension- Primary Unspecified essential hypertension Class 2 obesity due to excess calories without serious comorbidity with body mass index (BMI) of 38.0 to 38.9 in adult Right hip pain Pain in joint, pelvic region and thigh Dietary counseling Dietary surveillance and counseling Exercise counseling documented in this encounter Additional Health Concerns Assessment Noted Time PHQ-9 Depression Total Score: 0 08/14/19 25 3:31 PM EST documented as of this encounter Care Teams Finish Rolls Operator Relationship Specialty Start Date End Date Corin Doyle MD [address] [place] [address] PCP - General Family Medicine 07/18/18 Danay Carmen Debone Processing SupervisorNewspaper Delivery Counselor 12/09/23 documented as of this encounter
--- OUTSIDE RECORDS SUMMARY | 2024-08-14 16:33 | XMS_ITS | Encounter Summary ---
Author Organization [employer] Address [address] [place] [address] [address] [address] Care Team Providers Care Labor Utilization Superintendent Name Role Phone Croin Doyle MD Primary Care Provider [phone] Encounter Details Date Type Department Care Team (Late Contact Info) Description 06/28/2022 Orders Only [facility] [address] [place] [address] Belgica Lanza RN Social History Tobacco Use Types Packs/Day Years [...] Encounters Date Type Department Care Team (Late Contact Info) Description 11/22/2024 3:00 PM EDT Office Visit [facility] [address] [place] [address] Belinda Randall documented as of this encounter Visit Diagnoses Not on filedocumented in this encounter Care Teams Labor Utilization Superintendent Relationship Specialty Start Date End Date Corin Doyle MD [address] [place] [address] PCP - General Family Medicine 07/18/18 Danay Carmen LacquererEqual Opportunity Representative 12/09/23 documented as of this encounter
--- OUTSIDE RECORDS SUMMARY | 2024-08-14 16:33 | XMS_ITS | Encounter Summary ---
Author Organization [employer] Address [address] [facility] 7 [place] [address] Care Team Providers Care Commercial Real Estate Underwriter Name Role Phone Corin Doyle MD Primary Care Provider [phone] Reason for Visit * Reason Onset Date Comments Med Refill 04/02/2024 Encounter Details Date Type Department Care Team (Late st Contact Info) Description 04/02/2024 Refill [facility] [address] [place], [place] [phone] Corin Doyle MD [address] [place], [place] [phone] Social History Tobacco Use Types Packs/Day Years Used Date Smoking Tobacco: Never Passive Smoke Exposure: Never Smokeless Tobacco: Never Alcohol Use Standard Drinks/Week Comments Never 0 (1 standard drink = 0.6 oz pur e alcohol) Depression Answer Date Recorded Patient Health Questionnaire-9 Score 0 11/23/2022 Housing Stability Answer Date Recorded What is your housing situation today? I have rubina cmcurdy 05/23/[address] you li [...] Description 11/22/2024 3:00 PM EDT Office Visit [facility] [address] [place] [address] Belinda Randall documented as of this encounter Visit Diagnoses Not on filedocumented in this encounter Additional Health Concerns Assessment Noted Time PHQ-9 Depression Total Score: 0 11/24/19 23 3:58 PM EDT documented as of this encounter Care Teams Commercial Real Estate Underwriter Relationship Specialty Start Date End Date Corin Doyle MD [address] [place] [address] PCP - General Family Medicine 07/18/18 Danay Carmen BiotechnicianAnnealing Oven Operator 12/09/23 documented as of this encounter
--- OUTSIDE RECORDS SUMMARY | 2024-08-14 16:33 | XMS_ITS | Encounter Summary ---
Author Organization [employer] Address [address] [facility] [address] [place] [address] Care Team Providers Care Supervisor Histology Name Role Phone Corin Doyle MD Primary Care Provider [phone] Reason for Visit * Reason Onset Date Comments Med Refill 04/20/2024 Encounter Details Date Type Department Care Team (Late st Contact Info) Description 04/20/2024 Refill [facility] [address] [place], [place] [phone] Corin Doyle MD [address] [place], [place] [phone] Social History Tobacco Use Types Packs/Day Years [...] Description 11/22/2024 3:00 PM EDT Office Visit [facility] [address] [place] [address] Belinda Randall documented as of this encounter Visit Diagnoses Not on filedocumented in this encounter Additional Health Concerns Assessment Noted Time PHQ-9 Depression Total Score: 0 11/24/19 23 3:58 PM EDT documented as of this encounter Care Teams Supervisor Histology Relationship Specialty Start Date End Date Corin Doyle MD [address] [place] [address] PCP - General Family Medicine 07/18/18 Danay Carmen CrozerVehicle Glass Technician 12/09/23 documented as of this encounter
--- OUTSIDE RECORDS SUMMARY | 2024-08-14 16:33 | XMS_ITS | Encounter Summary ---
Author Organization [employer] Address [address] [facility] [address] [place] [address] Care Team Providers Care Shell Assembler Name Role Phone Corin Doyle MD Primary Care Provider [phone] Reason for Visit * Reason Onset Date Comments Nurse Triage 05/25/2024 Encounter Details Date Type Department Care Team ([facility] st Contact Info) Description 05/25/2024 Telephone [facility] [address] [place] [address] Corin Doyle MD [address] [place] [address] Nurse Triage Social History Tobacco Use Types [...] encounter Miscellaneous Notes * Telephone Encounter - Milly Mason RN - 05/25/2024 10:18 AM EST T/C to pt who reports a BP of 166/107 at this time along with 8/10 headache, blurry vision and dizziness. Pt denies chest pain, shortness of breath or any other symptoms. Due to symptoms severity pt is recommended to go to the ER at this time. Pt states that she has someone who can drive her to theER now. RN advises pt to call [facility] back when she is discharged in order to schedule follow- up with PCP. Pt expresses understanding and agrees to plan of care. * Telephone Encounter - Carmelo Stallworth - 05/25/2024 10:05 AM EST Symptom: High Blood Pressure - Caller Reports Outcome: Transfer to a nurse or provider NOW! Reason: Change in vision documented in this encounter Plan of Treatment Upcoming Encounters Date Type Department Care Team (Late st Contact Info) Description 11/22/2024 3:00 PM EDT Office Visit [facility] AD[facility] [address] [place] [address] Belinda Randall documented as of this encounter Visit Diagnoses Not on filedocumented in this encounter Additional Health Concerns Assessment Noted Time PHQ-9 Depression Total Score: 0 11/24/19 23 3:58 PM EDT documented as of this encounter Care Teams Shell Assembler Relationship Specialty Start Date End Date Corin Doyle MD [address] [place] [id number] PCP - General Family Medicine 07/18/18 Danay Carmen Single Ending Machine OperatorCarrier Blower 12/09/23 documented as of this encounter
--- OUTSIDE RECORDS SUMMARY | 2024-08-14 16:33 | XMS_ITS | Encounter Summary ---
Author Organization [employer] Address [address] [facility] [address] [place] [address] Care Team Providers Care Slip Dumper Name Role Phone Corin Doyle MD Primary Care Provider [phone] Reason for Visit * Reason Onset Date Comments Letter Request 07/05/2022 I called jodi ng the pt's request for a letter for housing. She stated that she is requesting an apartment on a first floor, or one with elevator accessibility, due to her medical conditions. Encounter Details Date Type Department Care Team ([facility] Contact Info) Description 07/05/2022 Telephone [facility] [address] [place] [address] Corin Doyle MD [address] [place] [address] Letter Request (I called regarding the pt's request for a letter for housing. She stated that she is requesting an apartment on a first floor, or one with elevator accessibility, due to her medical conditions.) Social History Tobacco Use Types Packs/Day Years [...] Upcoming Encounters Date Type Department Care Team ([facility] Contact Info) Description 11/22/2024 3:00 PM EDT Office Visit [facility] AD[facility] [address] [place] [address] Belinda Randall documented as of this encounter Visit Diagnoses Not on filedocumented in this encounter Care Teams Slip Dumper Relationship Specialty Start Date End Date Corin Doyle MD [address] [place] [address] PCP - General Family Medicine 07/18/18 Danay Carmen Visual LeadAcid Mixer 12/09/23 documented as of this encounter
--- OUTSIDE RECORDS SUMMARY | 2024-08-14 16:33 | XMS_ITS | Clinical Summary ---
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 Active Menthol, Topical Analgesic, 7.5 % (Roll) misc 1 patch daily Active montelukast (Singulair) 10 MG tablet TOME OLE TABLETA TODOS LOS NAM EN LA NOCHE 30 NAM ORALLY ONCE A DAY 90 DAYS Active cyclobenzaprine (Flexeril) 10 MG tablet TOME OLE TABLETA TODOS LOS NAM AL ACOSTARSE PARA EL ESPASMO MUSCULAR CUANDO SEA NECESARIO 30 tablet 3 Active potassium chloride CR (K-Tab) 20 MEQ ER tablet TAKE 1 TABLET BY MOUTH DAILY FOR THE DURATION INSTRUCTED BY YOUR MEDICAL PROFESSIONAL 30 tablet Active traMADol (Ultram) 50 MG tabletIndicatio ns:Lumbar sprain, initial encounter Take 1 tablet (50 mg) by mouth every 12 (twelve) hours if needed for severe pain. 14 tablet 024 Active loratadine (Claritin) 10 MG tablet TOME OLE TABLETA TODOS LOS NAM 90 tablet 1 024 Active hydrocortisone 2.5 % creamIndication s:Rash APPLY TOPICALLY TWICE A DAY 28 g 1 024 Active losartan (Cozaar) 50 MG tabletIndicatio ns:Primary hypertension TOME OLE TABLETA TODOS LOS NAM EN LA [facility] 90 tablet 3 024 Active cholecalciferol (D3-1000) 25 MCG (1000 UT) capsule TOME OLE CAPSULA TODOS LOS NAM 90 capsule 3 024 Active albuterol (2.5 MG/3ML) 0.083% nebulizer solutionIndicat ions:Moderate persistent asthma with acute exacerbation TAKE 3 ML (2.5 MG) BY NEBULIZATION CADA CUATRO HORAS CUANDO SEA NECESARIO PARA LA SIBILANCIA 75 mL 3 024 Active losartan (Cozaar) 25 MG tablet TAKE 1 TABLET BY MOUTH EVERY MORNING. TAKE WITH LOSARTAN 50 MG TO EQUAL 75 MG DAILY. 90 tablet 1 024 Active chlorthalidone (Hygroton) 25 MG tablet TAKE 1/2 TABLET BY MOUTH EVERY DAY. HOLD IF SBP < 120. 45 tablet 1 024 Active levothyroxine (Synthroid, Levoxyl) 75 MCG tabletIndicatio ns:Hypothyroidi sm (acquired) TAKE 1 TABLET BY MOUTH EVERY MORNING (DO NOT TAKE WITH ANY OTHER MEDICATION OR FOOD) 90 tablet 3 024 Active omeprazole (PriLOSEC) [address] capsuleIndicati ons:Gastroesoph ageal reflux disease, unspecified whether esophagitis present TOME 1 CAPSULA POR VIA ORAL TODOS LOS NAM BEFORE A MEAL 90 capsule 1 024 Active Acetaminophen (Mapap) 500 MG capsuleIndicati ons:Acute hip pain, right TAKE 1-2 CAPSULE BY ORAL ROUTE EVERY 6 HOURS NEEDED 30 capsule 024 Active Tirzepatide-Artemio ght Management (Zepbound) 2.5 MG/0.5ML solution auto-injector Inject 0.5 mL (2.5 mg) under the skin 1 (one) time per week. 2 mL 2 025 Active Symbicort 160-4.5 MCG/ACT inhaler Inhale 2 puffs bid and may use 1-2 puffs as needed for difficulty breathing (no more than 12 puffs daily). Rinse mouth with water after use to reduce aftertaste and incidence of candidiasis. Do not swallow. 1 each 3 025 Active albuterol 108 (90 Base) MCG/ACT inhaler Inhale 2 puffs every 4 (four) hours if needed for wheezing or shortness of breath. Maximum 8 puffs per day 18 g 3 025 2025 Active albuterol 108 (90 Base) MCG/ACT inhaler Inhale 2 puffs every 4 (four) hours if needed. 014 2024 Discontinued(M ed list cleanup (will not trigger notification to Pharmacy)) budesonide-form oterol (Symbicort) 80-4.5 MCG/ACT inhaler Inhale 2 puffs every 12 (twelve) hours. 2024 Discontinued(M ed list cleanup (will not trigger notification to Pharmacy)) Symbicort 160-4.5 MCG/ACT inhaler INHALE DANDO DOS SOPLIDOS INTO THE LUNGS DOS VECES AL D A FOR 30 DAYS 023 2024 Discontinued(R eorder (will not trigger notification to Pharmacy)) Semaglutide-Artemio ght Management (Wegovy) 0.25 MG/0.5ML solution auto-injector ADMINISTER 0.5 ML SUBCUTANEOUSLY WEEKLY 2 mL 024 2024 Discontinued(A lternate therapy) phentermine 15 MG capsule Take 1 capsule (15 mg) by mouth before breakfast. 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 Will check potassium today. If low, we will adjust chlorthalidone. Excessive attrition of teeth, limited to enamel 09/29/2023 Localized gingival recession 09/01/2023 Missing teeth, acquired 09/01/2023 Dental calculus 09/01/2023 Sensitivity of root structure of tooth Primary hypertension 11/29/2022 Assessment & Plan (11/01/2023 2:38 PM EDT): -Goal BP < 140/90 per JNC-8 and < 130/80 per ACC/AHA guideline -Continue working on lifestyle modifications -Continue self-monitoring BP. -Continue chlorthalidone 25 mg daily -Continue losartan 75 mg daily -Follow up in 3 mo, sooner if any problem arises Assessment & Plan (08/14/2023 3:02 PM EST): -Goal BP < 140/90 per JNC-8 and < 130/80 per ACC/AHA guideline -Continue working on lifestyle modifications -Continue self-monitoring BP. -Continue chlorthalidone 25 mg daily -Continue losartan 50 mg daily -Follow up in 3 mo, sooner if any problem arises Assessment & Plan (04/20/2023 5:54 PM EDT): Maintenance: Losartan 25mg, increase to 50mg nightly BMP: Lab Results Component Value Date CREATININE 0.74 03/10/2022 K 4.0 03/10/2022 LDLCHOL 89 07/23/2020 Lipid Panel: LDL at goal, <100 for non-DM2 patient ASCVD Risk: Calculate pending updated labs EKG: Obtain baseline at f/u - Aerobic exercise to reduce BP. Initial goal of 30 min walk 3-5x/week. Increase as tolerated. - low-sodium diet (goal: <2g/day) and heart healthy diet such as DASH to reduce BP and prevent ASCVD. - Home BP monitoring 1-2 x day with goal of <140/90. - Seek immediate medical attention for chest pain, palpitations, SOB, syncope, or sudden changes in mental status. - Do not change or discontinue current prescriptions without first consulting health care provider Assessment & Plan (11/29/2022 7:43 AM EDT): -Goal BP < 140/90 per JNC-8 and < 130/80 per ACC/AHA guideline -New Dx due to multiple elevated BP readings, including at home -Continue working on lifestyle modifications -Continue self-monitoring BP. -Start losartan 25 mg daily -Follow up in 3-6 mo, sooner if any problem arises Irritable bowel syndrome with constipation 07/25 Assessment & Plan (08/14/2023 2:56 PM EST): -Seen in ED 07/31/20. Normal CT scan. -Previously taking dicyclomine. Currently taking prn -Continue current laxative, Miralax and fiber. Assessment & Plan (07/25/2022 2:02 PM EST): -Seen in ED 07/31/20. Normal CT scan. -Previously taking dicyclomine. Currently taking prn -Continue current laxative, Miralax and fiber. Varicose veins of lower extremity 01/24/2018 Assessment & Plan (08/14/2023 2:54 PM EST): -11/22/17 Venous study showed: 1. RIGHT LEG: Varicose veins are seen at all levels of the greater saphenous vein. No reflux is seen. 2. LEFT LEG: Varicosities are seen throughout the left lower extremity except for the distal thigh. Reflux is seen in the mid calf at the greater saphenous vein. -Pt was unable to wear compression stockings -Pt was referred to vascular specialist, but cancelled appt -Continue leg elevation Assessment & Plan (07/25/2022 1:57 PM EST): -11/22/17 Venous study showed: 1. RIGHT LEG: Varicose veins are seen at all levels of the greater saphenous vein. No reflux is seen. 2. LEFT LEG: Varicosities are seen throughout the left lower extremity except for the distal thigh. Reflux is seen in the mid calf at the greater saphenous vein. -Pt was unable to wear compression stockings -Pt was referred to vascular specialist, but cancelled appt -Continue leg elevation Acquired hypothyroidism 12/01/2017 Assessment & Plan (08/14/2023 2:56 PM EST): -Most recent TSH 3.53 on 11/25/20, -Current replacement: levothyroxine 75 mcg daily -Continue current medication. 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 Assessment & Plan (07/25/2022 2:00 PM EST): -Most recent TSH 3.53 on 11/25/20, -Current replacement: levothyroxine 75 mcg daily -Continue current medication. Eczema 07/13/2017 Assessment & Plan (07/25/2022 2:05 PM EST): -liberal moisturization with emollients -avoid irritation -judicious use of topical steroid -immunotherapy by specialist Constipation 08/09/2016 Assessment & Plan (08/14/2023 2:55 PM EST): -Referred to GI for colonoscopy, but pt did not want to pursue -Will refer again because patient now agrees to have colonoscopy -Fiber-rich diet -Continue judicious use of laxatives Assessment & Plan (07/25/2022 1:58 PM EST): -Referred to GI for colonoscopy, but pt does not want to pursue -Fiber-rich diet -Continue judicious use of laxatives Gastroesophageal reflux disease 03/09/2016 Assessment & Plan (08/14/2023 2:55 PM EST): -Continue omeprazole 20 mg daily prn. -01/29/20 H. pylori stool antigen negative Assessment & Plan (07/25/2022 1:59 PM EST): -Continue omeprazole 20 mg daily prn. -01/29/20 H. pylori stool antigen negative Posttraumatic stress disorder 02/10/2015 Assessment & Plan (08/14/2023 3:01 PM EST): -Not on any medication -Not connected with S provider Assessment & Plan (07/25/2022 2:07 PM EST): -Not on any medication -Not connected with S provider Asthma 11/19/2013 Assessment & Plan (08/14/2023 2:52 PM EST): -Last exacerbation in Feb 2022. Se[place] [facility] [place] prednisone and azithromycin. Negative COVID -Followed by allergy / certified peer specialist -Continue Symicort -Continue montelukast -Continue albuterol neb and inhaler prn --Pt uses nebulizer treatment at home because her symptoms respond better and faster to nebulizer treatment Assessment & Plan (11/23/2022 4:53 PM EDT): -Last exacerbation in Feb 2022. Se[place] [facility] [place] Rx prednisone and azithromycin. Negative COVID -Followed by allergy / certified peer specialist -Continue Symicort -Continue montelukast -Continue albuterol neb and inhaler prn --Pt uses nebulizer treatment at home because her symptoms respond better and faster to nebulizer treatment Assessment & Plan (07/25/2022 1:55 PM EST): -Last exacerbation in Feb 2022. Seen [place] [facility] Rx prednisone and azithromycin. Negative COVID -Followed by allergy / certified peer specialist -Continue Symicort -Continue montelukast -Continue albuterol neb and inhaler prn --Pt uses nebulizer treatment at home because her symptoms respond better and faster to nebulizer treatment Allergic rhinitis 12/06/2012 Assessment & Plan (08/14/2023 3:00 PM EST): -Previously followed by Dr. Whitehead, allergy / certified peer specialist -Continue loratadine -Continue montelukast -Continue immunotherapy -Continue fluticasone nasal Assessment & Plan (11/29/2022 7:45 AM EDT): -Previously followed by Dr. Whitehead, allergy / certified peer specialist -Continue loratadine -Continue montelukast -Continue immunotherapy -Continue fluticasone nasal Assessment & Plan (07/25/2022 2:06 PM EST): -Followed by Dr. Whitehead, allergy / certified peer specialist -Continue loratadine -Continue montelukast -Continue immunotherapy -Continue fluticasone nasal Chronic back pain 12/06/2012 Assessment & Plan (07/25/2022 2:07 PM EST): -Previously evaluated [place] [facility] [place]s/p L4 TFESI -Continue back exercise at home Obesity 12/06/2012 Assessment & Plan (11/01/2023 5:07 PM EDT): -Work on lifestyle modifications -S/p phentermine treatment for 3 mos. Pt was able to lose 8 lbs. -Pt would like to try GLP-1 RA. Assessment & Plan (08/14/2023 3:00 PM EST): -Work on lifestyle modifications -Patient is strongly interested in pharmacological treatment. After discussion about potential side effect of phentermine, patient would like to try it. Agreed to try phentermine for 3 mo. Assessment & Plan (07/25/2022 2:04 PM EST): -Work on lifestyle modificatioins Encounters Date Type Department Care Team Description 08/14/2024 3:30 PM EST Office Visit [facility] [address] [place] [phone] Corin Doyle MD Primary hypertension (Primary Dx); Class 2 obesity due to excess calories without serious comorbidity with body mass index (BMI) of 38.0 to 38.9 in adult; Right hip pain; Dietary counseling; Exercise counseling 08/14/2024 Travel 07/26/2024 Telephone [facility] [address] [place] [phone] Corin Doyle MD Nurse Triage 07/12/2024 Refill [facility] [address] [place] [phone] Bria Warner NP Acute hip pain, right 07/12/2024 Refill [facility] [address] [place] [phone] Corin Doyle MD 07/12/[address] [address] Milly Alvarez RN Results 07/05/2024 Refill [facility] [address] [place] [address], [place] [phone] Corin Doyle MD Hypothyroidism (acquired); Gastroesophageal reflux disease, unspecified whether esophagitis present 06/22/[address] [address] Brenda Trinidad RN Med Refill (Wegovy notification) 06/05/2024 3:00 PM EST Office Visit [facility] [address] [place] [phone] Isidro Kasper DDS Abfraction (Primary Dx) 06/01/[address] [address] Corin Doyle MD Triage 05/25/2024 Orders Only GENERIC EXTERNAL DATA DEPARTMENT Provider, Generic External Data 05/25/[address] [address] Corin Doyle MD Nurse Triage 05/14/2024 2:00 PM EDT Clinical Support [address] [address] Milly Alvarez RN Primary hypertension 05/14/2024 Travel from Last 3 Months Immunizations Name Administration Dates Next Due Hep B, Adolescent or Pediatric 07/22/2006,2005,11/08/2005 Hep B, adult 11/16/2007 Influenza injectable quadriv alent IIV4 with preservative 04/24/2018,04/05/2016 Influenza injectable quadriv alent preservative free 08/08/2023,04/09/2019 Influenza, IIV3, injectable 05/02/2014,0 07/20/2011,04/25/2007,06/27 Influenza, Split (incl. johny fied surface antigen) 04/27/2013 MMR 01/15/2019,11/08/2005 Moderna Covid-19 Vaccine 12+ 12/23/2020,11/26/19 21 Pneumococcal Conjugate PCV 20 08/08/2023 Pneumococcal Polysaccharide PPSV23 05/02/2014 Tdap 11/16/2021,07/20/2011 Family History Medical History Relation Name Comments Diabetes type II Father Heart disease Father Heart disease Mother Hypertension Sister Cancer Neg Hx Relation Name Status Comments Father Mother Sister Social History Tobacco Use Types Packs/Day Years Used Date Smoking Tobacco: Never Passive Smoke Exposure: Never Smokeless Tobacco: Never Tobacco Cessation:Counseling Given: Not Answered Alcohol Use Standard Drinks/Week Comments Never 0 (1 standard drink = 0.6 oz pur e alcohol) Depression Answer Date Recorded Patient Health Questionnaire-9 Score 0 08/14/2024 Patient Health Questionnaire-9 Score 0 08/14/2024 Last PHQ-9: Questionnaire Data Not on file 0 08/14/2024 Housing Stability Answer Date Recorded What is your housing situation today? I have rubinashannon mccurdy 08/14/[address] you [...] Orientation Straight 05/17/2022 10 :16 AM EDT Last Filed Vital Signs Vital Sign Reading Time Taken Comments Blood Pressure 124/79 08/14/2024 3:35 PM EST Pulse 77 08/14/2024 3:35 PM EST Temperature 36.2 ??C (97.1 ??F) 08/14/2024 3:35 PM ES T Respiratory Rate 15 08/14/2024 3:35 PM EST Oxygen Saturation 98% 08/14/2024 3:35 PM EST Inhaled Oxygen Concentration - - Weight 90.9 kg (200 lb 6.4 oz) 08/14/2024 3:35 PM EST Height 157.5 cm (5' 2 ) 08/14/2024 3:35 PM EST Body Mass Index 36.65 08/14/2024 3:35 PM EST Plan of Treatment Upcoming Encounters Date Type Department Care Team (Late st Contact Info) Description 11/22/2024 3:00 PM EDT Office Visit [facility] [address] [place] [address] Belinda Randall Health Maintenance Due Date Last Done Comments CT Colonography 1976 Colonoscopy 1976 Colorectal Cancer Screening 1976 FIT DNA/Cologuard 1976 FIT 1976 FOBT 1976 Sigmoidoscopy 1976 Family Planning (PISQ) 01/31/1991 Pap Smear 01/31/1997 Cervical Cancer Screening 11/25/2022 HPV/Cotest 11/25/2022 11/25/2017 Dental Oral Exam 03/02/2024 09/01/2023, 05/2022, 02/02/2019, Additional history exists Dental Prophylaxis 03/02/2024 09/01/2023, 0 11/25/2021, 08/04/2018, Additional history exists COVID-19 Vaccine (3 - season) 2024 12/23/2020, 11/25/2020 Influenza Vaccine (#1) 2024 , 04/09/2019, 04/24/2018, Additional history exists Dental X-Ray: Bitewings 09/02/2024 09/01/19 24, 11/25/2021, 02/02/2019, Additional history exists Dental X-Ray: Full Mouth 11/26/2024 11/25/2021, 07/20 Alcohol/Substance Use Screening 08/14/2025 08/14/2024 Depression Screening 08/14/2025 08/14/2024, 08/14/19 SDOH Screening 08/14/2025 08/14/2024 Tobacco Screening 08/14/2025 08/14/2024 Mammogram 01/25/2026 01/26/2024, 11/15, 06/19/2021, Additional history exists Zoster Vaccines (1 of 2) 01/31/2026 Lipid Panel 08/11/2028 08/11/2023, 12/2020, 01/29/2020 DTaP/Tdap/Td Vaccines (3 - Td or Tdap) 11/17/2031 11/16/2021, 07/20/2011 RSV Patients and Patients Aged 60 years or older (1 - 1-dose 75+ series) 01/31/2051 Hepatitis B Vaccines Discontinued 11/16/2007, 07/22/2006, 01/26/2006, Additional history exists HIV Screening Completed 07/23/2020, 01/29/2020 Pneumococcal Vaccine: Pediatrics (0 to 5 Years) and At-Risk Patients (6 to 64 Years) Completed 08/08/2023, 05/02/2014 Hepatitis C Screening Completed 11/11/2023 , 07/23/2020, 01/29/2020 HIB Vaccines Aged Out No longer eligi ble based on patient's age to complete this topic HPV Vaccines Aged Out No longer eligi ble based on patient's age to complete this topic Hepatitis A Vaccines Aged Out No long er eligible based on patient's age to complete this topic IPV Vaccines Aged Out No longer eligi ble based on patient's age to complete this topic Meningococcal Vaccine Aged Out No bertha sharif eligible based on patient's age to complete this topic RSV under 20 months Aged Out No longe r eligible based on patient's age to complete this topic Rotavirus Vaccines Aged Out No longer eligible based on patient's age to complete this topic Procedures Procedure Name Priority Date/Time Associated Diagnosis Comments ADJUNCTIVE GENERAL SERVICES - PROFESSIONAL VISITS - CASE PRESENTATION, SUBSEQUENT TO DETAILED AND EXTENSIVE TREATMENT PLANNING Routine 06/05/2024 3:00 PM EST 29 B(V) RESTORATIVE - RESIN-BASED COMPOSITE RESTORATIONS - DIRECT - RESIN-BASED COMPOSITE - ONE SURFACE, POSTERIOR Routine 06/05/2024 3:00 PM EST 3 B(V) RESTORATIVE - RESIN-BASED COMPOSITE RESTORATIONS - DIRECT - RESIN-BASED COMPOSITE - ONE SURFACE, POSTERIOR Routine 06/05/2024 3:00 PM EST 30 B(V) RESTORATIVE - RESIN-BASED COMPOSITE RESTORATIONS - DIRECT - RESIN-BASED COMPOSITE - ONE SURFACE, POSTERIOR Routine 06/05/2024 3:00 PM EST URINALYSIS, COMPLETE, WITH REFLEX TO CULTURE Routine 05/25/2024 1:27 PM EST HCG, QL, URINE Routine 05/25/2024 1:27 PM EST SARS COV2/INFLUENZA A/B AND RSV RNA QL NAAT Routine 05/25/2024 12:41 PM EST HIGH SENSITIVITY TROPONIN I Routine 05/25/2024 11:01 AM EST B TYPE NATRIURETIC PEPTIDE (BNP) Routine 05/25/2024 11:01 AM EST COMPREHENSIVE METABOLIC PANEL Routine 05/25/2024 11:01 AM EST CBC WITH AUTO DIFFERENTIAL Routine 05/25/2024 11:01 AM EST BI US BREAST LIMITED LEFT Routine 01/26/2024 3:08 PM EDT HEPATITIS PANEL, GENERAL Routine 11/11/2023 8:41 AM EDT Elevated liver enzymes Full PROPHYLAXIS - ADULT Routine 09/01/2023 3:00 PM EST Dental calculus BITEWINGS - 4 RADIOGRAPHIC IMAGES Routine 09/01/2023 3:00 PM EST Localized gingival recession Missing teeth, acquired Dental calculus Sensitivity of root structure of tooth PERIODIC ORAL EVALUATION - ESTABLISHED PATIENT Routine 09/01/2023 3:00 PM EST LIPID PANEL WITH REFLEX TO DIRECT LDL Routine 08/11/2023 8:08 AM EST Primary hypertension Class 3 severe obesity due to excess calories with serious comorbidity and body mass index (BMI) of 40.0 to 44.9 in adult ([facility]) DIAGNOSTIC - DIAGNOSTIC IMAGING - INTRAORAL - COMPREHENSIVE SERIES OF RADIOGRAPHIC IMAGES Routine 11/25/2021 12:00 AM EDT HIV 1/2 ANTIGEN/ANTIBODY, FOURTH GENERATION W/RFL Routine 07/23/2020 12:19 PM EST ZZZ HISTORICAL HPV MRNA E6/E7 Routine 11/25/2017 10:52 AM EDT from Last 3 Months or Most Recently Relevant to Health Maintenance Results * (ABNORMAL) Urinalysis, Complete, with Reflex to Culture (05/25/2024 1:27 PM EST) Color Urine Yellow [facility] Appearance Urine Clear [facility] PH 6.0 5.0 - 9.0 [facility] Glucose Urine UA Negative Negative mg/dL [facility] Urine Blood Negative Negative [facility] Specific Thayer - Urine 1.020 1.005 - 1.025 [facility] Urine Protein Negative Neg-Trace mg/dL [facility] Urine Ketones Negative Negative mg/dL [facility] Nitrite Urine Negative Negative [facility] Leukocyte Esterase Urine Trace(A) Negative [facility] RBC Urine 0-2 0 - 2 /HPF [facility] Urine WBC 0-5 0 - 5 /HPF [facility] Urine Squamous Epithelial Cell 0-2 0 - 2 /HPF [facility] Urine Bacteria None Seen None Seen [facility] Hyaline Casts, Urine 0-2 0 - 2 /LPF [facility] 05/25/2024 1:27 PM EST 05/25/2024 1:35 PM EST Narrative [facility] - 05/25/2024 1:51 PM EST [id number], Clean Catch Generic External Data Provider LAB URINE ORDERAB LES Final Result Performing Organization Address [facility] Co de Phone Number [facility] [address] [place] [phone] * HCG, Qualitative, Urine (05/25/2024 1:27 PM EST) Urine NEGATIVE NEGATIVE [facility] Comment:This test was develo ped to detect early . Falsenegative results may occur after the 5th - 7th week ofpregnancy when using this test method. If clinicallyindicated, consider a serum hCG. 05/25/2024 1:27 PM EST 05/25/2024 1:35 PM EST Generic External Data Provider LAB URINE ORDERAB LES Final Result Performing Organization Address [facility] Co de Phone Number [facility] [address] [place] [phone] SARS-CoV-2 RNA, Influenza A/B, and RSV RNA, Ql NAAT (05/25/2024 12:41 PM EST) Influenza A PCR NEGATIVE Negative [facility] Influenza B PCR NEGATIVE Negative [facility] Resp Syncy Virus RNA Qual PCR NEGATIVE Negative [facility] SARS COV2 PCR NEGATIVE Negative [facility] Comment:All test results mus t be correlated with clinical findings.Negative results do not preclude SARS-CoV2, influenza Avirus, influenza B virus and/or RSV infectionand should not be used as the sole basis for treatment orother patient management decisions. Negative results must becombined with clinical observations, patient history, andepidemiological information.This test has not been evaluated for monitoring treatment ofinfection.This test has been authorized by the FDA under an EmergencyUse Authorization (EUA) for use by authorized laboratories.Testing performed on the Cepheid GeneXpert utilizingreal-time RT-PCR.All SARS CoV2 and positive influenza A/B results arereported to [facility]. 05/25/2024 12:4 1 PM EST 05/25/2024 12:46 PM EST Generic External Data Provider LAB MICROBIOLOGY - GENERAL ORDERABLES Final Result Performing Organization Address [facility] [facility] Phone Number [facility] [address] [place] [phone] * High Sensitivity Troponin I (05/25/2024 11:01 AM EST) [facility] TROPONIN I HIGH SENSITIVITY <2.7 <3.5 - 17.0 ng/L [facility] Comment:The Corey high sens itivity Troponin-I results should beused in conjunction with other diagnostic information suchas ECG, clinical observations and information, and patientsymptoms to aid in the diagnosis of [place]. 05/25/2024 11:0 1 AM EST 05/25/2024 11:42 AM EST Generic External Data Provider LAB BLOOD ORDERAB LES Final Result Performing Organization Address [facility] Phone Number [facility] [address] [place] [phone] * (ABNORMAL) CBC auto differential (05/25/2024 11:01 AM EST) Pathologist [facility] White Blood Count 5.8 4.8 - 10.8 X10*3/uL [facility] Red Blood Count 5.14 4.20 - 5.50 X10*6/uL [facility] Hemoglobin 13.6 12.0 - 16.0 g/dl [facility] Hematocrit 42.3 37.0 - 47.0 % [facility] Mean Corpuscular Volume 82.3 80.0 - 98.0 fL [facility] Mean Corpuscular Hemoglobin 26.5(L) 27.0 - 33.0 pg [facility] Mean Corpuscular HGB Conc 32.2 31.0 - 35.0 g/dl [facility] Red Cell Distribution Width 15.0 11.0 - 16.0 % [facility] Platelet Count 236 160 - 400 X10*3/uL [facility] Mean Platelet Volume 10.3 9.4 - 12.3 fL [facility] Neutrophils Percent Auto 51.1 45 - 73 % [facility] Imm Gran Pct Auto 0.3 0.0 - 0.4 % [facility] Lymphocytes Percent Auto 35.9 20 - 40 % [facility] Monocytes Percent Auto 8.3 2 - 11 % [facility] Eosinophils Percent Auto 3.5 0 - 4 % [facility] Basophils Percent Auto 0.9 0 - 2 % [facility] NRBC Pct Auto 0.0 0.0 - 0.2 /100WBC [facility] Neutrophils Absolute Auto 2.9 2.0 - 8.3 x10*3/uL [facility] Imm Gran Abs Auto 0.02 0.00 - 0.03 X10*3/uL [facility] Lymphocytes Absolute Auto 2.1 1.2 - 4.9 X10*3/uL [facility] Monocytes Absolute Auto 0.5 0.1 - 1.2 X10*3/uL [facility] Eosinophils Absolute Auto 0.2 0.0 - 0.4 X10*3/uL [facility] Basophils Absolute Auto 0.1 0.0 - 0.2 X10*3/uL [facility] NRBC Abs Auto 0.000 0.0 - 0.012 X10*3/uL [facility] 05/25/2024 11:0 1 AM EST 05/25/2024 11:04 AM EST us Generic External Data Provider LAB BLOOD ORDERAB LES Final Result [facility] [address] [place] [phone] * B Type Natriuretic Peptide (BNP) (05/25/2024 11:01 AM EST) B Type Natriuretic Peptide 18 <100 pg/mL [facility] Comment:For those patients w ho are being treated with Natrecor(nesiritide, recombinant BNP), BNP testing should beperformed at least two hours post treatment in order toensure that only endogenous levels of BNP are detected. 05/25/2024 11:0 1 AM EST 05/25/2024 11:42 AM EST us Generic External Data Provider LAB BLOOD ORDERAB LES Final Result [facility] [address] [place] [phone] * (ABNORMAL) Comprehensive Metabolic Panel (05/25/2024 11:01 AM EST) Sodium 142 135 - 145 mmol/L [facility] Potassium 3.9 3.3 - 5.1 mmol/L [facility] Chloride 109(H) 96 - 108 mmol/L [facility] Carbon Dioxide 28 22 - 29 mmol/L [facility] Anion Gap 9(L) 12 - 20 [facility] Urea Nitrogen (BUN) 16 9 - 16 mg/dL [facility] Creatinine, Serum 0.83 0.5 - 1.4 mg/dL [facility] Creatinine Clr Calc Pharmacy 86.6 [facility] Comment:Provided height and weight: 157.48 cm,90.4 kg.eGFR (calculated from the MDRD study equation) and eCrCl(calculated from the Cockcroft-Gault equation) are based ondifferent parameters and may not yield comparable results.If eCrCl result is absurd, please check patient'sheight/weight. Estimated Glomerular Filt Rate >60 [facility] Comment:NOTE: For -Am erican individuals, multiply the result by 1.210.Chronic Kidney Disease: Estimated GFR < 60 mL/min/1.28u8Ldfdgk Kidney Disease: Estimated GFR < 15 mL/min/1.73m2 Glucose 81 60 - 115 mg/dL [facility] Calcium 9.3 8.4 - 10.2 mg/dL [facility] Bilirubin, Total 0.3 0.0 - 1.0 mg/dL [facility] Aspartate Amino Transferase 20 5 - 31 U/L [facility] Alanine Aminotransferase 22 0 - 31 U/L [facility] Total Protein 7.6 6.5 - 8.0 g/dL [facility] Albumin Level 4.1 3.5 - 5.0 g/dL [facility] Alkaline Phosphatase 124(H) 39 - 117 U/L [facility] 05/25/2024 11:0 1 AM EST 05/25/2024 11:04 AM EST us Generic External Data Provider LAB BLOOD ORDERAB LES Final Result Performing Organization Address City/State/[facility] Co de Phone Number [facility] [address] [facility] [place] [phone] * BI US Breast Limited Left (01/26/2024 3:08 PM EDT) Anatomical Region Laterality Modality Breast Left Ultrasound 01/26/2024 3:08 PM EDT Narrative 01/26/2024 4:54 PM EDT ? [facility] ? [address] ?[place] [id number] ? Ultrasound Report ? Signed ? Patient: León,Janelle G ?MR#: [id number] ?? [id number] ? : 1975 ?Acct:[id number] ? Age/Sex: 48 / F ?ADM Date: 01/26/24 ? Loc: HO.MAMMO ? Attending Dr: Corin Doyle MD ? Ordering Physician: Corin Doyle MD ?? Date of Service: 01/26/24 ?? Procedure(s): US breast LT limited mamm only ?? Accession Number(s): [id number] ? cc: Corin Doyle MD ? EXAMINATION: ?? MM DIAGNOSTIC DIGITAL BREAST TOMOSYNTHESIS, LEFT ?? US BREAST LIMITED, LEFT ? MAMMOGRAPHY: ?? CLINICAL INFORMATION: ? Callback from screening for oval mass 2:00 axis left breast posterior ?? one third, new from prior examination. ? COMPARISON: ?? Screening mammography 11/29/2023. 06/19/2021, 06/13/2020, 05/24/2019, ?? and dating back to 2018. ? TECHNIQUE: ?? Digital breast tomosynthesis is performed in the following views: 3-D ?? spot compression left CC and MLO views. Computer-aided diagnosis was ?? used for this study. ? FINDINGS: ?? The breasts are heterogeneously dense, which may obscure small masses ?? (ACR BI-RADS breast composition Category c). ? Spot magnification views demonstrate a oval circumscribed mass in the ?? left breast measuring 2.1 x 1.6 x 1.6 cm, isodense, most likely ?? representing a cyst. This will be interrogated by ultrasound. ?? No additional suspicious finding is evident. ? ULTRASOUND: ?? CLINICAL INFORMATION: ?? As above. ? COMPARISON: ?? None contributory. ? TECHNIQUE: ?? Targeted sonographic evaluation was performed using a high frequency ?? linear transducer. Attention was given to the upper outer quadrant left ?? breast Selected archived documentation. ? FINDINGS: ? LEFT BREAST: In the 2:00 axis, 5 cm from the nipple, there is a simple ?? anechoic cyst measuring 2.0 x 1.3 x 1.9 cm. This finding is benign. No ?? additional abnormalities are seen. No follow-up recommended. ? US/US breast LT limited mamm only ?? IMPRESSION: ?? There are no findings suspicious for malignancy in the left breast. ? There is a simple cyst in the 2:00 axis correlating with the ?? mammographic focus of concern. This is benign. No further follow-up ?? recommended. ? Recommend the patient return to routine annual screening. ? OVERALL ASSESSMENT: ?? Mammography: BI-RADS 2 - Benign Findings ?? Ultrasound: BI-RADS 2 - Benign Findings ? RECOMMENDATION: ?? 1 year F/U ? This patient's information was entered into a reminder system with a ?? target due date for their next mammogram. ? Dictated By: ?Salomón Al MD ? Signed By: ?<Electronically signed by Salomón Al MD in OV> ?01/26/24 1651 ? DD/ 1508 ? TD/TT: ? Resource Manager: ? Procedure Note Donotuseinterpreter, Image - 01/26/2024 [facility] [address] [place], [place] [address] Ultrasound Report Signed Patient: Janelle León GMR#: [id number] : 1975Acct:[id number] Age/Sex: 48 / FADM Date: 01/26/24 Loc: HO.MAMMO Attending Dr: Corin Doyle MD Ordering Physician: Corin Doyle MD Date of Service: 01/26/24 Procedure(s): US breast LT limited mamm only Accession Number(s): [id number] cc: Corin Doyle MD EXAMINATION: MM DIAGNOSTIC DIGITAL BREAST TOMOSYNTHESIS, LEFT US BREAST LIMITED, LEFT MAMMOGRAPHY: CLINICAL INFORMATION: Callback from screening for oval mass 2:00 axis left breast posterior one third, new from prior examination. COMPARISON: Screening mammography 11/29/2023. 06/19/2021, 06/13/2020, 05/24/2019, and dating back to 2018. TECHNIQUE: Digital breast tomosynthesis is performed in the following views: 3-D spot compression left CC and MLO views. Computer-aided diagnosis was used for this study. FINDINGS: The breasts are heterogeneously dense, which may obscure small masses (ACR BI-RADS breast composition Category c). Spot magnification views demonstrate a oval circumscribed mass in the left breast measuring 2.1 x 1.6 x 1.6 cm, isodense, most likely representing a cyst. This will be interrogated by ultrasound. No additional suspicious finding is evident. ULTRASOUND: CLINICAL INFORMATION: As above. COMPARISON: None contributory. TECHNIQUE: Targeted sonographic evaluation was performed using a high frequency linear transducer. Attention was given to the upper outer quadrant left breast Selected archived documentation. FINDINGS: LEFT BREAST: In the 2:00 axis, 5 cm from the nipple, there is a simple anechoic cyst measuring 2.0 x 1.3 x 1.9 cm. This finding is benign. No additional abnormalities are seen. No follow-up recommended. US/US breast LT limited mamm only IMPRESSION: There are no findings suspicious for malignancy in the left breast. There is a simple cyst in the 2:00 axis correlating with the mammographic focus of concern. This is benign. No further follow-up recommended. Recommend the patient return to routine annual screening. OVERALL ASSESSMENT: Mammography: BI-RADS 2 - Benign Findings Ultrasound: BI-RADS 2 - Benign Findings RECOMMENDATION: 1 year F/U This patient's information was entered into a reminder system with a target due date for their next mammogram. Dictated By: Salomón Al MD Signed By: <Electronically signed by Salomón Al MD in OV> 01/26/24 1651 DD/ 1508 TD/TT: Resource Manager: Corin Doyle MD IMG US PROCEDURES Final Result * Hepatitis A,B,C Profile (11/11/2023 8:41 AM EDT) Hepatitis A IgM Nonreactive Nonreactive [facility] Comment:IgM antibodies to GUZMÁN V not detected; does not exclude earlyacute or recovered HAV infection. ~Hepatitis B Surface Antibody REACTIVE Nonreactive [facility] Comment:REACTIVE: > 11.99 mI U/mL Hepatitis B Core Antibody Nonreactive Nonreactive [facility] Hepatitis C Antibody Nonreactive Nonreactive [facility] Comment:Antibodies to HCV no t detected; does not exclude early acuteHCV infection. Hepatitis B Surface Ag Negative Negative [facility] Blood Venous blood specimen / Unknown 11/11/2023 8:41 AM EDT 11/11/2023 11:40 AM EDT Corin Doyle MD LAB BLOOD ORDERABLES Final Resul t [facility] [address] [place] [phone] * (ABNORMAL) Lipid Panel with Reflex to Direct LDL (08/11/2023 8:08 AM EST) Triglycerides 91 <150 mg/dL [facility] Comment:Desirable Triglyceri de: less than 150 mg/dLBorderline High Triglyceride 150-199 mg/dLHigh Triglyceride: 200-499 mg/dLVery High Triglyceride: greater than or equal to 5OO mg/dL Cholesterol 133 <200 mg/dL [facility] Comment:Desirable Cholestero l: less than 200 mg/dLBorderline High Cholesterol: 200-239 mg/dLHigh Cholesterol: greater than 239 mg/dL LDL Cholesterol Calculated 76 <100 mg/dL [facility] Comment:Desirable LDL: less than 100 mg/dLNear Optimal/Above Optimal LDL: 110- 129 mg/dLBorderline High LDL: 130-159 mg/dLHigh LDL: 160-189 mg/dLVery High LDL: greater than or equal to 190 mg/dL HDL Cholesterol 39(L) >40 mg/dL [facility] Comment:Desirable HDL: great er than 40 mg/dL Note: This HDL assay may give artificially low results in patients with liver disease. Blood 08/11/2023 8:08 AM EST 08/11/2023 11:36 AM EST us Corin Doyle MD LAB BLOOD ORDERABLES Final Resul t [facility] [address] [place] [phone] * HIV 1/2 ANTIGEN/ANTIBODY,FOURTH GENERATION W/RFL (07/23/2020 12:19 PM EST) HIV-1/2 ANTIGEN AND ANTIBODIES, 4TH GENERATION W/ REFLEX NON-REACT LU NON-REACT LU [facility] Comment: HIV-1 antigen and HIV-1/HIV-2 antibodies were not detected. There is no laboratory evidence of HIV infection. ?? PLEASE NOTE: This information has been disclosed to you from records whose confidentiality may be protected by state law. ??If your state requires such protection, then the state law prohibits you from making any further disclosure of the information without the specific written consent of the person to whom it pertains, or as otherwise permitted by law. A general authorization for the release of medical or other information is NOT sufficient for this purpose. ? For additional information please refer to http://[employer].dMetrics/faq/IKB149 (This link is being provided for informational/ educational purposes only.) ? The performance of this assay has not been clinically validated in patients less than 2 years old. ?? 07/23/2020 12:1 9 PM EST Corin Doyle MD LAB BLOOD ORDERABLES Final Resul t Performing Organization Address [facility] de Phone Number [facility] [address] * HPV mRNA E6/E7 (11/25/2017 10:52 AM EDT) Pathologist [facility] HPV mRNA E6/E7 Not Detected NOT DETECTED [facility] Comment: This test was performed using the APTIMA(R) HPV Assay ([employer] This assay detects E6/E7 viral messenger RNA (mRNA) from 14 high-risk HPV types (16,18,31,33,35,39,45,51, 52,56,58,59,66,68). For additional information please refer to: http://[employer].makerist.[employer] International/faq/QRG185d4 (This link is being provided for informational/ educational purposes only.) Test Performed by [employer] [facility] [place], [address] [place] [phone] Arsenio Flor M.D., Ph.D., Director of Laboratories , [facility] [id number] Please note: ??Effective 03/29/2016, HPV testing will be performed using [employer]'s APTIMA test which targets mRNA. Detecting mRNA instead of DNA, as in older methods, offers significant improvements in specificity. 11/25/2017 10:5 2 AM EDT us Historical Provider HISTORICAL/NON ORDERABLE LABS Final Result Performing Organization Address [facility] de Phone Number [facility] [address] from Last 3 Months or Most Recently Relevant to Health Maintenance Insurance [place] [facility] MEDICAID STAND ADULT Care Teams Crop Farm Helper Relationship Specialty Start Date End Date Corin Doyle MD [address] [place] [address] PCP - General Family Medicine 07/18/18 Danay Carmen Civil Cadd TechnicianDirector Social Welfare 12/09/23
--- OUTSIDE RECORDS SUMMARY | 2024-08-14 16:34 | XMS_ITS | Encounter Summary ---
Author Organization [employer] Address [address] [facility] 7 [place] [address] Care Team Providers Care Manufacturing Test Technician Name Role Phone Corin Doyle MD Primary Care Provider [phone] Reason for Visit * Reason Onset Date Comments Med Refill 11/01/2023 Encounter Details Date Type Department Care Team (Late st Contact Info) Description 11/01/2023 Refill [facility] [address] [place], [place] [phone] Corin Doyle MD [address] [place], [place] [phone] Social History Tobacco Use Types Packs/Day Years [...] Description 11/22/2024 3:00 PM EDT Office Visit [facility] [address] [place] [phone] Belinda Randall documented as of this encounter Visit Diagnoses Not on filedocumented in this encounter Additional Health Concerns Assessment Noted Time PHQ-9 Depression Total Score: 0 11/24/19 23 3:58 PM EDT documented as of this encounter Care Teams Manufacturing Test Technician Relationship Specialty Start Date End Date Corin Doyle MD [address] [place] [address] PCP - General Family Medicine 07/18/18 Danay Carmen Bushing Press OperatorBen Day Artist 12/09/23 documented as of this encounter
--- OUTSIDE RECORDS SUMMARY | 2024-08-14 16:34 | XMS_ITS | Encounter Summary ---
Author Organization [employer] Address [address] [place] [address] [place], [place] [address] Care Team Providers Care Coin Box Inspector Name Role Phone Corin Doyle MD Primary Care Provider [phone] Reason for Referral * Imaging (Routine) - Closed Specialty Diagnoses / Procedures Referred By Jacey t Referred To Contact Radiology Diagnoses Breast cancer screening by mammogram Procedures BI Mammogram Screening Tomosynthesis Bilateral Corin Doyle MD [address] [place] [address] Phone: tel: fax: [facility] [address] [place] [address] Phone: tel: fax: Referral ID Status Reason Start Date Expiration Date Visits Re quested Visits Authorized [id number] Closed 11/01/2023 10/31/2024 1 1 * Consultation (Routine) - Canceled Specialty Diagnoses / Procedures Referred By Contantwon t Referred To Contact Gastroenterology Diagnoses Colon cancer screening Corin Doyle MD [address] [place] [address] Phone: tel: fax: Referral ID Status Reason Start Date Expiration Date Visits Requested Visits Authorized [id number] Canceled Specialty Services Required 11/01/2023 10/31/2024 1 1 * Imaging (Routine) - Closed Specialty Diagnoses / Procedures Referred By Jacey garza Referred To Contact Radiology Diagnoses Elevated liver enzymes Procedures US Abdomen Comp w elastography Corin Doyle MD [address] [place] [address] Phone: tel: fax: [facility] [address] [place] [address] Phone: tel: fax: Referral ID Status Reason Start Date Expiration Date Visits Re quested Visits Authorized [id number] Closed 11/01/2023 10/31/2024 1 1 Encounter Details Date Type Department Care Team (Late st Contact Info) Description 11/01/2023 Orders Only [facility] [address] [place] [phone] Corin Doyle MD [address] [place] [address] Elevated liver enzymes (Primary Dx); Breast cancer screening by mammogram; Colon cancer screening; Hypokalemia Social History Tobacco Use Types Packs/Day Years [...] as of this encounter Miscellaneous Notes * Result Encounter Note - Corin Doyle MD - 11/01/2023 6:15 PM EDT Abnormal result. Please add her on your list and assist us to follow up. documented in this encounter Plan of Treatment Upcoming Encounters Date Type Department Care Team (Late st Contact Info) Description 11/22/2024 3:00 PM EDT Office Visit [facility] [address] [place] [address] Belinda Randall Scheduled Referrals Name Type Priority Associated Diagnoses Order Schedule Referral to Gastroenterology Outpatient Referral Routine Colon cancer screening Expected: 11/01/2023 (Approximate), Expires: 10/31/2024 documented as of this encounter Procedures Procedure Name Priority Date/Time Associated Diagnosis Comments BI MAMMOGRAM SCREENING TOMOSYNTHESIS BILATERAL Routine 11/29/2023 3:57 PM EDT Breast cancer screening by mammogram US ABDOMEN COMPLETE WITH ELASTOGRAPHY Routine 11/22/2023 11:50 AM EDT Elevated liver enzymes HEPATITIS PANEL, GENERAL Routine 11/11/2023 8:41 AM EDT Elevated liver enzymes CBC WITH AUTO DIFFERENTIAL Routine 11/11/2023 8:41 AM EDT Elevated liver enzymes POTASSIUM Routine 11/11/2023 8:41 AM EDT Hypokalemia documented in this encounter Results * BI Mammogram Screening Tomosynthesis Bilateral (11/29/2023 3:57 PM EDT) Anatomical Region Laterality Modality Breast Bilateral Mammography 11/29/2023 3:57 PM EDT Narrative 12/30/2023 5:50 AM EDT ? [facility] ? [address] ?[place] [id number] ? Mammography Report ? Signed ? Patient: Mau,Janelle G ?MR#: [id number] ?? [id number] ? : 1975 ?Acct:[id number] ? Age/Sex: 48 / F ?ADM Date: 11/29/23 ? Loc: HO.MAMMO ? Attending Dr: Corin Doyle MD ? Ordering Physician: Corin Doyle MD ?Results: 0Incomple ?? te: Needs Additional Imaging Evaluation ? Date of Service: 11/29/23 ?Follow Up: Additional Imagi ?? ng ? Procedure(s): MM tomosynthesis screening BI ?? Accession Number(s): [id number] ? cc: Corin Doyle MD ? EXAMINATION: ?? MM SCREENING DIGITAL BREAST TOMOSYNTHESIS, BILATERAL ? CLINICAL INFORMATION: ? Screening. Asymptomatic. ? COMPARISON: ?? Mammography: This study is compared with prior exams dating back to ?? 2019. ? TECHNIQUE: ?? Digital breast tomosynthesis is performed in both the craniocaudal and ?? mediolateral oblique views along with computer-aided detection (CAD). ?? Synthesized 2D images are generated from the tomosynthesis. ? FINDINGS: ?? The breasts are heterogeneously dense, which may obscure small masses ?? (ACR BI-RADS breast composition Category c). ? There is a focal asymmetry in the upper outer quadrant of the left ?? breast. This warrants additional mammographic and targeted sonographic ?? imaging. ? There is a tissue marker in the upper outer quadrant of the right ?? breast from prior benign percutaneous biopsy. ? MM/MM tomosynthesis screening BI ?? IMPRESSION: ?? Focal asymmetry of the left breast warrants additional mammographic and ?? targeted sonographic imaging. ? No mammographic signs of malignancy right breast. ? ASSESSMENT: ? BI-RADS BI-RADS 0 - Incomplete: Needs additional Imaging. ? RECOMMENDATION: ?? 1. Additional views of the left breast ?? 2. Targeted ultrasound if warranted after review of the additional ?? views. ?? 3. Radiology department staff will contact the patient for additional ?? imaging. ? Additional Imaging required ? This examination should not preclude the clinical evaluation of a ?? suspicious palpable abnormality. ? This patient's information was entered into a reminder system with a ?? target due date for their next mammogram. ? Dictated By: ?Antonia Willis MD ? Signed By: ?<Electronically signed by Antonia Willis MD in OV> ? 12/30/23 0546 ? DD/ 1557 ? TD/TT: ? Horse Riding Coach Or Instructor: ? Procedure Note Evens, Image - 12/30/2023 [facility] [address] [place] [address] [place] [address] Mammography Report Signed Patient: Janelle León R#: [id number] : 1975Acct:[id number] Age/Sex: 48 / FADM Date: 11/29/23 Loc: [facility].MAMMO Attending Dr: Corin Doyle MD Ordering Physician: Corin Doyle MDResults: 0Incomple te: Needs Additional Imaging Evaluation Date of Service: 11/29/23Follow Up: Additional Imagi ng Procedure(s): MM tomosynthesis screening BI Accession Number(s): [id number] cc: oCrin Doyle MD EXAMINATION: MM SCREENING DIGITAL BREAST TOMOSYNTHESIS, BILATERAL CLINICAL INFORMATION: Screening. Asymptomatic. COMPARISON: Mammography: This study is compared with prior exams dating back to 2019. TECHNIQUE: Digital breast tomosynthesis is performed in both the craniocaudal and mediolateral oblique views along with computer-aided detection (CAD). Synthesized 2D images are generated from the tomosynthesis. FINDINGS: The breasts are heterogeneously dense, which may obscure small masses (ACR BI-RADS breast composition Category c). There is a focal asymmetry in the upper outer quadrant of the left breast. This warrants additional mammographic and targeted sonographic imaging. There is a tissue marker in the upper outer quadrant of the right breast from prior benign percutaneous biopsy. MM/MM tomosynthesis screening BI IMPRESSION: Focal asymmetry of the left breast warrants additional mammographic and targeted sonographic imaging. No mammographic signs of malignancy right breast. ASSESSMENT: BI-RADS BI-RADS 0 - Incomplete: Needs additional Imaging. RECOMMENDATION: 1. Additional views of the left breast 2. Targeted ultrasound if warranted after review of the additional views. 3. Radiology department staff will contact the patient for additional imaging. Additional Imaging required This examination should not preclude the clinical evaluation of a suspicious palpable abnormality. This patient's information was entered into a reminder system with a target due date for their next mammogram. Dictated By: Antonia Willis MD Signed By: <Electronically signed by Antonia Willis MD in OV> 12/30/23 0546 DD/ 1557 TD/TT: Horse Riding Coach Or Instructor: us Corin Doyle MD IMG BI PROCEDURES Edited Result - Final * US Abdomen Comp w elastography (11/22/2023 11:50 AM EDT) Anatomical Region Laterality Modality Abdomen Ultrasound 11/22/2023 11:5 0 AM EDT Narrative 11/28/2023 5:18 PM EDT ?[address] ?[place] [address] ? Ultrasound Report ? Signed ? Patient: León,Janelle G ?MR#: [id number] ?? [id number] ? : 1975 ?Acct:[id number] ? Age/Sex: 48 / F ?ADM Date: 11/22/23 ? Loc: HO.US ? Attending Dr: Corin Doyle MD ? Ordering Physician: Corin Doyle MD ?? Date of Service: 11/22/23 ?? Procedure(s): US abdomen comp w elastography ?? Accession Number(s): [id number] ? cc: Corin Doyle MD ? EXAMINATION: ?? US COMPLETE ABDOMEN WITH LIVER ELASTOGRAPHY ? CLINICAL INFORMATION: ?? Elevated liver function tests. ? COMPARISON: ?? None available. ? TECHNIQUE: ?? Real-time imaging of the abdominal viscera. Noninvasive ultrasound ?? liver fibrosis assessment is performed using Mi ElastPQ point ?? quantification shear wave elastography (2D-SWE) with a C5-2 MHz ?? transducer. ??Multiple elastography samples are obtained. ? FINDINGS: ? PANCREAS: Normal. The visualized pancreatic head and body are normal in ?? appearance. The remainder of the pancreas is obscured from ?? visualization by the overlying bowel gas. ? ABDOMINAL AORTA: The proximal, middle, and distal aortic segments are ?? normal in caliber. ? INFERIOR VENA CAVA: Visualized portions are normal. ? LIVER: Normal. The liver demonstrates normal size, contour and ?? echogenicity. No focal lesion or intrahepatic biliary duct dilatation. ? The right lobe measures 15.7 cm in length. ??The left lobe measures 7.7 ?? cm in length. ? Portal flow is towards the liver (hepatopetal). ? Shear wave liver elastography median stiffness is 1.3 m/s (reference: ?? normal median stiffness is 1.3 m/s or less). ? IQR/median stiffness to assess sampling precision is 0.06 (reference: ?? good quality data set is IQR/median stiffness of 0.15 or less). ? GALLBLADDER: Surgically absent. ? COMMON BILE DUCT: Normal in caliber measuring 0.4 cm in diameter. ? RIGHT KIDNEY: Normal. No hydronephrosis. No renal calculi or focal ?? parenchymal lesions. The kidney measures 10.9 cm in maximum dimension. ? LEFT KIDNEY: Normal. No hydronephrosis. No renal calculi or focal ?? parenchymal lesions. The kidney measures 11.2 cm in maximum dimension. ? SPLEEN: Normal. The spleen measures 12.9 cm in maximum dimension. ? FREE FLUID: None. ? US/US abdomen comp w elastography ?? IMPRESSION: ? 1. There is generalized increase in hepatic echotexture, consistent ?? with fatty infiltration or hepatocellular disease. Please correlate ?? clinically. No focal hepatic mass or intrahepatic biliary dilatation is ?? seen. ? 2. Liver elastography: ??Measurements are consistent with a high ?? probability of normal liver stiffness. ? 3. There is borderline splenomegaly. ? 4. The gallbladder is surgically absent. ? REFERENCE: ?? Society of Radiologists in Ultrasound Liver Stiffness Thresholds ?? (2019): ? LIVER STIFFNESS THRESHOLDS: ?? *Liver Stiffness equal or less than 1.3 m/s: ??High probability of being ?? normal. ?? *Liver Stiffness ??less than 1.7 m/s: ??In the absence of other known ?? clinical signs, rules out compensated advanced chronic liver disease. ?? *Liver Stiffness 1.7-2.1 m/s: ??Suggestive of compensated advanced ?? chronic liver disease but need further test for confirmation. ?? *Liver Stiffness over 2.1 m/s: ??Rules in compensated advanced chronic ?? liver disease. ?? *Liver Stiffness over 2.4 m/s: ??Suggestive of clinically significant ?? portal hypertension. ? QUALITY OF DATA SET: ?? *IQR/Median value equal or less than 0.15 implies a quality data set. ?? *IQR/Median value over 0.15 implies a poor quality data set. ? SIGNIFICANT CHANGE FROM PRIOR EXAM: ?? Significant change if liver stiffness measurement is 10% or greater ?? from prior exam. ? OTHER CONSIDERATIONS: ?? The stage of liver fibrosis may be overestimated in the setting of ?? acute hepatitis, liver inflammation, elevated liver function tests, ?? hepatic vascular congestion, obstructive cholestasis, non-fasting ?? state, and infiltrative diseases such as amyloidosis and lymphoma. ??In ?? some patients with NAFLD, the liver stiffness thresholds for ?? compensated advanced chronic liver disease may be lower. ??In causes ?? other than viral hepatitis and NAFLD, liver stiffness thresholds are ?? not well established. ? Dictated By: ?Liam Thomas MD ? Signed By: ?<Electronically signed by Liam Thomas MD in OV> ? 11/28/23 1714 ? DD/ 1150 ? TD/TT: ? Horse Riding Coach Or Instructor: KIMI ? Procedure Note Donotuseinterpreter, Image - 11/28/2023 [place] [address] Ultrasound Report Signed Patient: Janelle León GMR#: [id number] : 1975Acct:[id number] Age/Sex: 48 / FADM Date: 11/22/23 Loc: HO.US Attending Dr: Corin Doyle MD Ordering Physician: Corin Doyle MD Date of Service: 11/22/23 Procedure(s): US abdomen comp w elastography Accession Number(s): [id number] cc: Corin Doyle MD EXAMINATION: US COMPLETE ABDOMEN WITH LIVER ELASTOGRAPHY CLINICAL INFORMATION: Elevated liver function tests. COMPARISON: None available. TECHNIQUE: Real-time imaging of the abdominal viscera. Noninvasive ultrasound liver fibrosis assessment is performed using Mi ElastPQ point quantification shear wave elastography (2D-SWE) with a C5-2 MHz transducer. Multiple elastography samples are obtained. FINDINGS: PANCREAS: Normal. The visualized pancreatic head and body are normal in appearance. The remainder of the pancreas is obscured from visualization by the overlying bowel gas. ABDOMINAL AORTA: The proximal, middle, and distal aortic segments are normal in caliber. INFERIOR VENA CAVA: Visualized portions are normal. LIVER: Normal. The liver demonstrates normal size, contour and echogenicity. No focal lesion or intrahepatic biliary duct dilatation. The right lobe measures 15.7 cm in length. The left lobe measures 7.7 cm in length. Portal flow is towards the liver (hepatopetal). Shear wave liver elastography median stiffness is 1.3 m/s (reference: normal median stiffness is 1.3 m/s or less). IQR/median stiffness to assess sampling precision is 0.06 (reference: good quality data set is IQR/median stiffness of 0.15 or less). GALLBLADDER: Surgically absent. COMMON BILE DUCT: Normal in caliber measuring 0.4 cm in diameter. RIGHT KIDNEY: Normal. No hydronephrosis. No renal calculi or focal parenchymal lesions. The kidney measures 10.9 cm in maximum dimension. LEFT KIDNEY: Normal. No hydronephrosis. No renal calculi or focal parenchymal lesions. The kidney measures 11.2 cm in maximum dimension. SPLEEN: Normal. The spleen measures 12.9 cm in maximum dimension. FREE FLUID: None. US/US abdomen comp w elastography IMPRESSION: 1. There is generalized increase in hepatic echotexture, consistent with fatty infiltration or hepatocellular disease. Please correlate clinically. No focal hepatic mass or intrahepatic biliary dilatation is seen. 2. Liver elastography: Measurements are consistent with a high probability of normal liver stiffness. 3. There is borderline splenomegaly. 4. The gallbladder is surgically absent. REFERENCE: Society of Radiologists in Ultrasound Liver Stiffness Thresholds (2020): LIVER STIFFNESS THRESHOLDS: *Liver Stiffness equal or less than 1.3 m/s: High probability of being normal. *Liver Stiffness less than 1.7 m/s: In the absence of other known clinical signs, rules out compensated advanced chronic liver disease. *Liver Stiffness 1.7-2.1 m/s: Suggestive of compensated advanced chronic liver disease but need further test for confirmation. *Liver Stiffness over 2.1 m/s: Rules in compensated advanced chronic liver disease. *Liver Stiffness over 2.4 m/s: Suggestive of clinically significant portal hypertension. QUALITY OF DATA SET: *IQR/Median value equal or less than 0.15 implies a quality data set. *IQR/Median value over 0.15 implies a poor quality data set. SIGNIFICANT CHANGE FROM PRIOR EXAM: Significant change if liver stiffness measurement is 10% or greater from prior exam. OTHER CONSIDERATIONS: The stage of liver fibrosis may be overestimated in the setting of acute hepatitis, liver inflammation, elevated liver function tests, hepatic vascular congestion, obstructive cholestasis, non-fasting state, and infiltrative diseases such as amyloidosis and lymphoma. In some patients with NAFLD, the liver stiffness thresholds for compensated advanced chronic liver disease may be lower. In causes other than viral hepatitis and NAFLD, liver stiffness thresholds are not well established. Dictated By: Liam Thomas MD Signed By: <Electronically signed by Liam Thomas MD in OV> 11/28/23 1714 DD/ 1150 TD/TT: Horse Riding Coach Or Instructor: KIMI Corin Doyle MD IMG US PROCEDURES Final Result * (ABNORMAL) Potassium (11/11/2023 8:41 AM EDT) Potassium 3.2(L) 3.3 - 5.1 mmol/L [facility] Blood Venous blood specimen / Unknown 11/11/2023 8:41 AM EDT 11/11/2023 11:40 AM EDT Corin Doyle MD LAB BLOOD ORDERABLES Final Resul t Performing Organization Address [facility] Co de Phone Number [facility] [address] [place] [phone] * Hepatitis A,B,C Profile (11/11/2023 8:41 AM EDT) Hepatitis A IgM Nonreactive Nonreactive [facility] Comment:IgM antibodies to GUZMÁN V not detected; does not exclude earlyacute or recovered HAV infection. ~Hepatitis B Surface Antibody REACTIVE Nonreactive [facility] Comment:REACTIVE: > 11.99 mI U/mL Hepatitis B Core Antibody Nonreactive Nonreactive [facility] Hepatitis C Antibody Nonreactive Nonreactive [facility] Comment:Antibodies to HCV no t detected; does not exclude early acuteHCV infection. Hepatitis B Surface Ag Negative Negative [facility] Blood Venous blood specimen / Unknown 11/11/2023 8:41 AM EDT 11/11/2023 11:40 AM EDT us Corin Doyle MD LAB BLOOD ORDERABLES Final Resul t Performing Organization Address City/[facility]/ZIP Co de Phone Number [facility] [address] [place] [address] [phone] * (ABNORMAL) CBC auto differential (11/11/2023 8:41 AM EDT) White Blood Count 6.6 4.8 - 10.8 X10*3/uL [facility] Red Blood Count 5.08 4.20 - 5.50 X10*6/uL [facility] Hemoglobin 13.4 12.0 - 16.0 g/dl [facility] Hematocrit 42.1 37.0 - 47.0 % [facility] Mean Corpuscular Volume 82.9 80.0 - 98.0 fL [facility] Mean Corpuscular Hemoglobin 26.4(L) 27.0 - 33.0 pg [facility] Mean Corpuscular HGB Conc 31.8 31.0 - 35.0 g/dl [facility] Red Cell Distribution Width 14.4 11.0 - 16.0 % [facility] Platelet Count 267 160 - 400 X10*3/uL [facility] Mean Platelet Volume 11.0 9.4 - 12.3 fL [facility] Neutrophils Percent Auto 59.9 45 - 73 % [facility] Imm Gran Pct Auto 0.6(H) 0.0 - 0.4 % [facility] Lymphocytes Percent Auto 26.2 20 - 40 % [facility] Monocytes Percent Auto 8.4 2 - 11 % [facility] Eosinophils Percent Auto 3.8 0 - 4 % [facility] Basophils Percent Auto 1.1 0 - 2 % [facility] NRBC Pct Auto 0.0 0.0 - 0.2 /100WBC [facility] Neutrophils Absolute Auto 3.9 2.0 - 8.3 x10*3/uL [facility] Imm Gran Abs Auto 0.04(H) 0.00 - 0.03 X10*3/uL [facility] Lymphocytes Absolute Auto 1.7 1.2 - 4.9 X10*3/uL [facility] Monocytes Absolute Auto 0.6 0.1 - 1.2 X10*3/uL [facility] Eosinophils Absolute Auto 0.3 0.0 - 0.4 X10*3/uL [facility] Basophils Absolute Auto 0.1 0.0 - 0.2 X10*3/uL [facility] NRBC Abs Auto 0.000 0.0 - 0.012 X10*3/uL [facility] Blood Venous blood specimen / Unknown 11/11/2023 8:41 AM EDT 11/11/2023 11:40 AM EDT us Corin Doyle MD LAB BLOOD ORDERABLES Final Resul t Performing Organization Address City/State/[facility] Co de Phone Number [facility] [address] [place] [address] [phone] documented in this encounter Visit Diagnoses Diagnosis Elevated liver enzymes- Primary Other nonspecific abnormal serum enzyme levels Breast cancer screening by mammogram Colon cancer screening Special screening for malignant neoplasms, colon Hypokalemia Hypopotassemia documented in this encounter Additional Health Concerns Assessment Noted Time PHQ-9 Depression Total Score: 0 11/24/19 23 3:58 PM EDT documented as of this encounter Care Teams Coin Box Inspector Relationship Specialty Start Date End Date Corin [place] MD [address] [place] [phone] PCP - General Family Medicine 07/18/18 Danay Carmen Full Stack EngineerTongue Lining Stitcher 12/09/23 documented as of this encounter
--- OUTSIDE RECORDS SUMMARY | 2024-08-14 16:34 | XMS_ITS | Encounter Summary ---
Author Organization [employer] Address [address] [facility] [address] [place] [address] Care Team Providers Care Configuration Developer Name Role Phone Corin Doyle MD Primary Care Provider [phone] Reason for Visit * Reason Onset Date Comments Med Refill 11/02/2023 Encounter Details Date Type Department Care Team (Late st Contact Info) Description 11/02/2023 Refill [facility] [address] [place], [place] [phone] Corin Doyle MD [address] [place], [place] [phone] Social History Tobacco Use Types Packs/Day Years [...] Telephone Encounter - Corin Doyle MD - 11/04/2023 1:51 PM EDT The medication was prescribed for 3 months only * Telephone Encounter - Saranya Burt RN - 11/02/2023 11:16 AM EDT Telephone call placed to pt. Went over instructions below answering any questions. Pt repeated instructions back to me. Also sent on [facility] so pt has them written out since she is active on [facility] scheduled for 11/15 with [place] nurses for blood pressure check. Pt verbalized understanding and denied having any further questions or concerns at this time. * Telephone Encounter - Saranya Burt RN - 11/02/2023 11:00 AM EDT ----- Message from Corin Doyle MD sent at 11/01/2023 6:14 PM EDT ----- Notified by on-call provider on 11/01/23 and called the patient. Our plan is to replace with KCl 20 mEq daily for 1 week, recheck lab, halve chlorthalidone, and arrange BP check. Could you be able to arrange BP check in 2 wks? If BP is elevated both home and office, will increase losartan to 100 mg daily (currently 75 mg). Thank you documented in this encounter Plan of Treatment Upcoming Encounters Date Type Department Care Team (Late st Contact Info) Description 11/22/2024 3:00 PM EDT Office Visit [facility] [address] [place] [address] Belinda Randall documented as of this encounter Visit Diagnoses Not on filedocumented in this encounter Additional Health Concerns Assessment Noted Time PHQ-9 Depression Total Score: 0 11/24/19 23 3:58 PM EDT documented as of this encounter Care Teams Configuration Developer Relationship Specialty Start Date End Date Corin Doyle MD [address] [place] [address] PCP - General Family Medicine 07/18/18 Danay Carmen Tobacco Cloth ReclaimerChecker Dump Grounds 12/09/23 documented as of this encounter
--- OUTSIDE RECORDS SUMMARY | 2024-08-14 16:34 | XMS_ITS | Encounter Summary ---
Author Organization [employer] Address [address] [place] [address] 7 [place] [address] Care Team Providers Care Windows Software Developer Name Role Phone Corin Doyle MD Primary Care Provider [phone] Reason for Visit * Reason Comments Med Refill Encounter Details Date Type Department Care Team ([facility] st Contact Info) Description 12/14/2022 Refill [facility] MED[facility] 230 [place], [place] [phone] Corin Doyle MD [address] [place], [place] [phone] LLQ pain Social History Tobacco Use Types Packs/Day Years [...] suspected to have Coronavirus/COVID-19? No / Unsure 11/23/2022 3:35 PM EDT documented as of this encounter Miscellaneous Notes * Telephone Encounter - Saranya Burt RN - 12/16/2022 1:43 PM EDT T/C placed to pt re below message. Informed of possible effects of taking too much ibuprofen. Advised APAP. Pt reports is severely allergic to APAP. Can take Tylenol. Informed I would let PCP know. Pt is requesting ibuprofen too frequently. 90 tablets in 1 month. Please ask her not to take everyday because of long-term adverse effect on kidney and GI tract function. Ibuprofen should not be taken q8h everyday for > 2 weeks. Please ask her to take APAP. She can take ibuprofen for severe pain occasionally. Thank you. documented in this encounter Plan of Treatment Upcoming Encounters Date Type Department Care Team (Late st Contact Info) Description 11/22/2024 3:00 PM EDT Office Visit [facility] [address] [place] [address] Belinda Randall documented as of this encounter Visit Diagnoses Diagnosis LLQ pain Abdominal pain, left lower quadrant documented in this encounter Additional Health Concerns Assessment Noted Time PHQ-9 Depression Total Score: 0 11/24/19 23 3:58 PM EDT documented as of this encounter Care Teams Windows Software Developer Relationship Specialty Start Date End Date Corin Doyle MD [address] [place] [address] PCP - General Family Medicine 07/18/18 Danay Carmen Coat JoinerWharfmaster 12/09/23 documented as of this encounter
--- OUTSIDE RECORDS SUMMARY | 2024-08-14 16:34 | XMS_ITS | Encounter Summary ---
Author Organization [employer] Address 75 [facility] 7t [place] [address] Care Team Providers Care Bilingual Medical Assistant Name Role Phone Corin Doyle MD Primary Care Provider [phone] Reason for Visit * Reason Comments Med Refill Encounter Details Date Type Department Care Team ([facility] st Contact Info) Description 11/07/2023 Refill [facility] 230 [place], [place] [phone] Eddie Guerrero MD 230 [place] [address] Social History Tobacco Use Types Packs/Day Years [...] Description 11/22/2024 3:00 PM EDT Office Visit [facility] 230 [place] [address] Belinda Randall documented as of this encounter Visit Diagnoses Not on filedocumented in this encounter Additional Health Concerns Assessment Noted Time PHQ-9 Depression Total Score: 0 11/24/19 23 3:58 PM EDT documented as of this encounter Care Teams Bilingual Medical Assistant Relationship Specialty Start Date End Date Corin Doyle MD 230 [place] [address] PCP - General Family Medicine 07/18/18 Danay Carmen Box Sealing Machine CatcherElectrical Tester 12/09/23 documented as of this encounter
[2024-08-14 18:03] LABS: Estimated Average Glucose 100 mg/dL; Hemoglobin A1C 113.0993 umol/L; Hemoglobin A1c % 5.1 % (<6.0); Microalbum/Creatinine Ratio Ur 4.7 ug/mg cr (<30); Total Hemoglobin (HGBA1C) 3506.6804 umol/L
[2024-08-14 18:07] LABS: Alanine Aminotransferase 24 U/L (0-31); Albumin Level 4.1 g/dL (3.5-5.0); Alkaline Phosphatase 109 U/L (39-117); Anion Gap 10 (12-20); Aspartate Amino Transferase 21 U/L (5-31); Bilirubin Total 0.2 mg/dL (0.0-1.0); Blood Urea Nitrogen 14 mg/dL (9-16); Calcium 9.2 mg/dL (8.4-10.2); Carbon Dioxide 30 mmol/L (22-29); Chloride 106 mmol/L (96-108); Cholesterol 146 mg/dL (<200); Estimated Glomerular Filt Rate > 60; Glucose Random 72 mg/dL (60-115); HDL Cholesterol 41 mg/dL (>40); LDL Cholesterol Calculated 83 mg/dL (<100); Magnesium 2.2 mg/dL (1.6-2.6); Potassium 3.1 mmol/L (3.3-5.1); Sodium 143 mmol/L (135-145); Total Protein 7.7 g/dL (6.5-8.0); Triglycerides 114 mg/dL (<150)
[2024-08-14 18:34] LABS: TSH reflex Free T4 3.48 uIU/mL (0.32-4.0); Uric Acid 4.5 mg/dL (2.4-5.7)
[2024-08-14 19:23] LABS: Reflex LDLD? No
== END 2024-08-14 16:04 | disposition home or self-care (01) ==
LOC: HO.HHCL 16:03
PROVIDERS: Visit Provider Family Medicine
DX: E87.6 Hypokalemia (principal); E03.9 Hypothyroidism, unspecified; E66.812 Obesity, class 2; E66.09 Other obesity due to excess calories; Z68.38 Body mass index [BMI] 38.0-38.9, adult; T50.2X Poisoning by, adverse effect of and underdosing of carbonic-anhydrase inhibitors, benzothiadiazides and other diuretics; I10 Essential (primary) hypertension
CPT/HCPCS: 36415; 80053; 80061; 82043; 82570; 83036; 83735; 84443; 84550

== ENCOUNTER 2024-12-04 15:50 | Outpatient (REF) | payer MEDICAID, SELFPAY ==
--- OUTSIDE RECORDS SUMMARY | 2024-12-04 16:40 | XMS_ITS | Encounter Summary ---
Author Organization [employer] Address 75 [facility] 7 [place] [address] Care Team Providers Care Supply Chain Consultant Name Role Phone Corin Doyle MD Primary Care Provider [phone] Reason for Visit * Reason Onset Date Comments Med Refill 04/20/2024 Encounter Details Date Type Department Care Team ([facility] st Contact Info) Description 04/20/2024 Refill [facility] MED[facility] 230 [place] [address] Corin Doyle MD 230 [place] [address] Social History Tobacco Use Types Packs/Day Years [...] Care Team (Late st Contact Info) Description 12/19/2024 3:00 PM EDT Medication Management [facility] [address] [place] [address] Sam Peace, PharmD [address] [place] [address] 12/31/2024 3:45 PM EDT Office Visit [facility] MED[facility] [address] [place] [address] Corin Doyle MD [address] [place] [address] documented as of this encounter Visit Diagnoses Not on filedocumented in this encounter Additional Health Concerns Assessment Noted Time PHQ-9 Depression Total Score: 0 11/24/19 23 3:58 PM EDT documented as of this encounter Care Teams Supply Chain Consultant Relationship Specialty Start Date End Date Corin Doyle MD [address] [place] [phone] PCP - General Family Medicine 07/18/18 Danay Carmen Aerial Tram OperatorLandscape Contractor 12/09/23 Danay Carmen Aerial Tram OperatorLandscape Contractor 08/27/24 documented as of this encounter
--- OUTSIDE RECORDS SUMMARY | 2024-12-04 16:40 | XMS_ITS | Encounter Summary ---
Author Organization [employer] Address 75 [facility] 7t [place] [address] Care Team Providers Care Electrician Control Equipment Name Role Phone Corin Doyle MD Primary Care Provider [phone] Reason for Visit * Reason Comments Med Change Request Encounter Details Date Type Department Care Team ([facility] Contact Info) Description 01/08/2024 Refill [facility] MED[facility] 230 [place], [place] [phone] Corin Doyle MD 230 [place], [place] [phone] Social History Tobacco Use Types Packs/Day Years [...] Description 12/19/2024 3:00 PM EDT Medication Management [facility] [address] [place] [address] Sam Peace, PharmD [address] [place] [address] 12/31/2024 3:45 PM EDT Office Visit [facility] [address] [place] [address] Corin Doyle MD [address] [place] [phone] documented as of this encounter Visit Diagnoses Not on filedocumented in this encounter Additional Health Concerns Assessment Noted Time PHQ-9 Depression Total Score: 0 11/24/19 23 3:58 PM EDT documented as of this encounter Care Teams Electrician Control Equipment Relationship Specialty Start Date End Date Corin Doyle MD [address] [place] [address] PCP - General Family Medicine 07/18/18 Danay Carmen GlaciologistSales Hunter 12/09/23 Danay Carmen GlaciologistSales Hunter 08/27/24 documented as of this encounter
--- OUTSIDE RECORDS SUMMARY | 2024-12-04 16:40 | XMS_ITS | Encounter Summary ---
Author Organization [employer] Address 75 [facility] 7 [place] [address] Care Team Providers Care Care Coordinator Name Role Phone Corin Doyle MD Primary Care Provider [phone] Reason for Visit * Reason Onset Date Comments Med Refill 11/01/2023 Encounter Details Date Type Department Care Team ([facility] Contact Info) Description 11/01/2023 Refill [facility] MED[facility] 230 [place], [place] [phone] Corin Doyle MD 230 [place] [address] Social History Tobacco Use Types Packs/Day Years [...] Description 12/19/2024 3:00 PM EDT Medication Management [facility] MED[facility] [address] [place] [address] Sam Peace, PharmD [address] [place] [address] 12/31/2024 3:45 PM EDT Office Visit [facility] [address] [place] [address] Corin Doyle MD [address] [place] [address] documented as of this encounter Visit Diagnoses Not on filedocumented in this encounter Additional Health Concerns Assessment Noted Time PHQ-9 Depression Total Score: 0 11/24/19 23 3:58 PM EDT documented as of this encounter Care Teams Care Coordinator Relationship Specialty Start Date End Date Corin Doyle MD [address] [place] [address] PCP - General Family Medicine 07/18/18 Danay Carmen Dump Motor OperatorClay Caster 12/09/23 Danay Carmen Dump Motor OperatorClay Caster 08/27/24 documented as of this encounter
--- OUTSIDE RECORDS SUMMARY | 2024-12-04 16:40 | XMS_ITS | Encounter Summary ---
Author Organization [employer] Address [address] [place] [address] [place], [place] [address] Care Team Providers Care Head Kiln Operator Name Role Phone Corin Doyle MD Primary Care Provider [phone] Encounter Details Date Type Department Care Team (Latest Contact Info) Description 11/25/2021 Abstract [facility] CONVERSIONS Dental, Provider, DDS Social History [...] Description 12/19/2024 3:00 PM EDT Medication Management [facility] MEDICINE [address] [place] [address] Sam Peace, PharmD 230 [place] [address] 12/31/2024 3:45 PM EDT Office Visit [facility] MEDICINE [address] [place] [address] Corin Doyle MD 230 [place] [address] documented as of this encounter Visit Diagnoses Not on filedocumented in this encounter Care Teams Head Kiln Operator Relationship Specialty Start Date End Date Corin Doyle MD [address] [place] [address] PCP - General Family Medicine 07/18/18 Danay Carmen Trim Crew SupervisorZyglo Inspector 12/09/23 Danay Carmen Trim Crew SupervisorZyglo Inspector 08/27/24 documented as of this encounter
--- OUTSIDE RECORDS SUMMARY | 2024-12-04 16:40 | XMS_ITS | Encounter Summary ---
Author Organization [employer] Address 75 [facility] 7t [place] [address] Care Team Providers Care Garbage Truck Dispatcher Name Role Phone Corin Doyle MD Primary Care Provider [phone] Reason for Visit * Reason Comments Med Refill Encounter Details Date Type Department Care Team ([facility] Contact Info) Description 11/07/2023 Refill [facility] 230 [place], [place] [phone] Eddie Guerrero MD 230 [place] [address] Social History Tobacco Use Types Packs/Day Years [...] Description 12/19/2024 3:00 PM EDT Medication Management [facility] [address] [place] [address] Sam Peace, PharmD [address] [place] [address] 12/31/2024 3:45 PM EDT Office Visit [facility] [address] [place] [address] Corin Doyle MD [address] [place] [address] documented as of this encounter Visit Diagnoses Not on filedocumented in this encounter Additional Health Concerns Assessment Noted Time PHQ-9 Depression Total Score: 0 11/24/19 23 3:58 PM EDT documented as of this encounter Care Teams Garbage Truck Dispatcher Relationship Specialty Start Date End Date Corin Doyle MD [address] [place] [address] PCP - General Family Medicine 07/18/18 Danay Carmen Video Control OperatorLogistics Team Lead 12/09/23 Danay Carmen Video Control OperatorLogistics Team Lead 08/27/24 documented as of this encounter
--- OUTSIDE RECORDS SUMMARY | 2024-12-04 16:40 | XMS_ITS | Encounter Summary ---
Author Organization [employer] Address 75 [facility] 7t [place] [address] Care Team Providers Care Acquisition Manager Name Role Phone Corin Doyle MD Primary Care Provider [phone] Reason for Visit * Reason Onset Date Comments Letter Request 07/05/2022 I called jodi ng the pt's request for a letter for housing. She stated that she is requesting an apartment on a first floor, or one with elevator accessibility, due to her medical conditions. Encounter Details Date Type Department Care Team ([facility] Contact Info) Description 07/05/2022 Telephone [facility] [address] [place] [address] Corin Doyle MD 230 [place], [place] [phone] Letter Request (I called regarding the pt's [...] Upcoming Encounters Date Type Department Care Team ([facility] Contact Info) Description 12/19/2024 3:00 PM EDT Medication Management [facility] MED[facility] 230 [place] [address] Sam Peace, ConchisD 230 [place], [place] [phone] 12/31/2024 3:45 PM EDT Office Visit [facility] MED[facility] 230 [place], [place] [phone] Corin Doyle MD 230 [place], [place] [phone] documented as of this encounter Visit Diagnoses Not on filedocumented in this encounter Care Teams Acquisition Manager Relationship Specialty Start Date End Date Corin Doyle MD [address] [place] [address] [phone] PCP - General Family Medicine 07/18/18 Danay Carmen Hog RingerRail Equipment Operator 12/09/23 Danay Carmen Hog RingerRail Equipment Operator 08/27/24 documented as of this encounter
--- OUTSIDE RECORDS SUMMARY | 2024-12-04 16:40 | XMS_ITS | Encounter Summary ---
Author Organization [employer] Address [address] [place] [address] 7 [place] [address] Care Team Providers Care Section Weaver Name Role Phone Corin Doyle MD Primary Care Provider [phone] Reason for Visit * Reason Onset Date Comments triage 10/28/2022 Encounter Details Date Type Department Care Team ([facility] st Contact Info) Description 10/28/2022 Telephone [facility] MEDICINE 230 [place] [address] Corin Doyle MD 230 [place] [address] triage Social History Tobacco Use Types Packs/Day [...] 10/28/2022 11:47 AM EDT Triage call with [place] [employer] Operator [place] [id number] Pt reports burning with urination, bladder pressure, slight bilateral flank pain and frequency. Pt denies bad odor, fever. Pt is advised to come to [facility] to be seen today and Pt agrees [...] Description 12/19/2024 3:00 PM EDT Medication Management [facility] MEDICINE [address] [place] [address] Sam Peace, PharmD 230 [place] [address] 12/31/2024 3:45 PM EDT Office Visit [facility] MEDICINE [address] [place] [address] Corin Doyle MD [address] [place] [address] documented as of this encounter Visit Diagnoses Not on filedocumented in this encounter Care Teams Section Weaver Relationship Specialty Start Date End Date Corin Doyle MD [address] [place] [address] PCP - General Family Medicine 07/18/18 Danay Carmen Ice Delivery DriverPlastic Parts Fabricator 12/09/23 Danay Carmen Ice Delivery DriverPlastic Parts Fabricator 08/27/24 documented as of this encounter
--- OUTSIDE RECORDS SUMMARY | 2024-12-04 16:40 | XMS_ITS | Encounter Summary ---
Author Organization [employer] Address 75 [facility] 7t [place] [address] Care Team Providers Care Chief Cloth Finishing Range Operator Name Role Phone Corin Doyle MD Primary Care Provider [phone] Encounter Details Date Type Department Care Team ([facility] st Contact Info) Description 08/17/2024 Orders Only [facility] MEDICINE 230 [place], [place] [phone] Corin Doyle MD 230 [place], [place] [phone] Social History Tobacco Use Types Packs/Day Years [...] Description 12/19/2024 3:00 PM EDT Medication Management [facility] MEDICINE [address] [place] [address] Sam Peace, PharmD [address] [place] [address] 12/31/2024 3:45 PM EDT Office Visit [facility] MEDICINE [address] [place] [address] Corin Doyle MD [address] [place] [address] documented as of this encounter Visit Diagnoses Not on filedocumented in this encounter Additional Health Concerns Assessment Noted Time PHQ-9 Depression Total Score: 0 08/14/19 3:31 PM EST documented as of this encounter Care Teams Chief Cloth Finishing Range Operator Relationship Specialty Start Date End Date Corin Doyle MD [address] [place] [address] PCP - General Family Medicine 07/18/18 Danay Carmen Mobile Application TesterBread Baker 12/09/23 Danay Carmen Mobile Application TesterBread Baker 08/27/24 documented as of this encounter
--- OUTSIDE RECORDS SUMMARY | 2024-12-04 16:40 | XMS_ITS | Encounter Summary ---
Author Organization [employer] Address 75 [facility] 7 [place] [address] Care Team Providers Care Precipitator Supervisor Name Role Phone Corin Doyle MD Primary Care Provider [phone] Reason for Visit * Reason Onset Date Comments Med Refill 12/03/2024 Encounter Details Date Type Department Care Team (Late st Contact Info) Description 12/03/2024 Refill [facility] [address] [place], [place] [phone] Corin oDyle MD [address] [place] [address] Lumbar sprain, initial encounter Social History Tobacco [...] your housing situation today? I have rubina calli 08/14/[address] you li [...] Description 12/19/2024 3:00 PM EDT Medication Management [facility] MEDICINE [address] [place] [address] Sam Peace, PharmD [address] [place] [address] 12/31/2024 3:45 PM EDT Office Visit [facility] MEDICINE [address] [place] [address] Corin Doyle MD [address] [place] [address] documented as of this encounter Visit Diagnoses Diagnosis Lumbar sprain, initial encounter documented in this encounter Additional Health Concerns Assessment Noted Time PHQ-9 Depression Total Score: 0 08/14/19 25 3:31 PM EST documented as of this encounter Care Teams Precipitator Supervisor Relationship Specialty Start Date End Date Corin Doyle MD [address] [place] [address] PCP - General Family Medicine 07/18/18 Danay Carmen Umbrella CutterGas Treater 12/09/23 Danay Carmen Umbrella CutterGas Treater 08/27/24 documented as of this encounter
--- OUTSIDE RECORDS SUMMARY | 2024-12-04 16:40 | XMS_ITS | Encounter Summary ---
Author Organization [employer] Address [address] [place] [address] 7 [place] [address] Care Team Providers Care Paint Mixer Name Role Phone Corin Doyle MD Primary Care Provider [phone] Reason for Visit * Reason Onset Date Comments Med Refill 11/02/2023 Encounter Details Date Type Department Care Team ([facility] st Contact Info) Description 11/02/2023 Refill [facility] MED[facility]INE 230 [place], [place] [phone] Corin Doyle MD 230 [place] [address] Social History Tobacco Use Types Packs/Day Years [...] instructions back to me. Also sent on [employer] so pt has them written out since she is active on [employer] scheduled for 11/15 with [facility] for blood pressure check. Pt verbalized [...] Description 12/19/2024 3:00 PM EDT Medication Management [facility] MEDICINE [address] [place] [address] Sam Peace, PharmD 230 [place], [place] [phone] 12/31/2024 3:45 PM EDT Office Visit [facility] MED[facility] 230 [place], [place] [phone] Corin Doyle MD [address] [place] [address] [phone] documented as of this encounter Visit Diagnoses Not on filedocumented in this encounter Additional Health Concerns Assessment Noted Time PHQ-9 Depression Total Score: 0 11/24/19 23 3:58 PM EDT documented as of this encounter Care Teams Paint Mixer Relationship Specialty Start Date End Date Corin Doyle MD [address] [place] [address] [phone] PCP - General Family Medicine 07/18/18 Danay Carmen Communications SpecialistSecurity Systems Specialist 12/09/23 Danay Carmen Communications SpecialistSecurity Systems Specialist 08/27/24 documented as of this encounter
--- OUTSIDE RECORDS SUMMARY | 2024-12-04 16:40 | XMS_ITS | Encounter Summary ---
Author Organization [employer] Address [address] [facility] [address] 7t [place] [address] Care Team Providers Care Maintenance Millwright Name Role Phone Corin Doyle MD Primary Care Provider [phone] Encounter Details Date Type Department Care Team ([facility] Contact Info) Description 08/16/2023 Orders Only [facility] 230 [place], [place] [phone] Eddie Guerrero MD 230 [place], [place] [phone] Social History Tobacco Use Types Packs/Day Years [...] Description 12/19/2024 3:00 PM EDT Medication Management [facility] [address] [place] [address] Sam Peace, PharmD [address] [place] [address] 12/31/2024 3:45 PM EDT Office Visit [facility] [address] [place] [address] Corin Doyle MD [address] [place] [address] documented as of this encounter Visit Diagnoses Not on filedocumented in this encounter Additional Health Concerns Assessment Noted Time PHQ-9 Depression Total Score: 0 11/24/19 23 3:58 PM EDT documented as of this encounter Care Teams Maintenance Millwright Relationship Specialty Start Date End Date Corin Doyle MD [address] [place] [address] PCP - General Family Medicine 07/18/18 Danay Carmen Military ProfessionalCurtain Cleaner 12/09/23 Danay Carmen Military ProfessionalCurtain Cleaner 08/27/24 documented as of this encounter
--- OUTSIDE RECORDS SUMMARY | 2024-12-04 16:40 | XMS_ITS | Encounter Summary ---
Author Organization [employer] Address 75 [facility] 7 [place] [address] Care Team Providers Care Seaport Planning Manager Name Role Phone Corin Doyle MD Primary Care Provider [phone] Reason for Visit * Reason Onset Date Comments Med Refill 12/03/2024 Encounter Details Date Type Department Care Team ([facility] st Contact Info) Description 12/03/2024 Refill [facility] MEDICINE 230 [place] [address] Eddie Guerrero MD 230 [place] [address] Moderate persistent asthma with acute exacerbation Social History Tobacco Use Types Packs/Day Years [...] Description 12/19/2024 3:00 PM EDT Medication Management [facility] MEDICINE [address] [place] [address] Sam Peace, PharmD [address] [place] [address] 12/31/2024 3:45 PM EDT Office Visit [facility] MEDICINE [address] [place] [address] Corin Doyle MD [address] [place] [address] documented as of this encounter Visit Diagnoses Diagnosis Moderate persistent asthma with acute exacerbation documented in this encounter Additional Health Concerns Assessment Noted Time PHQ-9 Depression Total Score: 0 08/14/19 25 3:31 PM EST documented as of this encounter Care Teams Seaport Planning Manager Relationship Specialty Start Date End Date Corin Doyle MD [address] [place] [address] PCP - General Family Medicine 07/18/18 Danay Carmen Roving Machine OperatorOb Scrub Tech 12/09/23 Danay Carmen Roving Machine OperatorOb Scrub Tech 08/27/24 documented as of this encounter
--- OUTSIDE RECORDS SUMMARY | 2024-12-04 16:40 | XMS_ITS | Clinical Summary ---
Author Organization [employer] Address [address] [place] [address] [address] [place] [address] Care Team Providers Care Sales Systems Engineer Name Role Phone Corin Doyle MD Primary Care Provider [phone] Allergies Active Allergy Reactions Criticality Noted Date [...] NAM ORALLY ONCE A DAY 90 DAYS 022 Active losartan (Cozaar) 50 MG tabletIndicatio ns:Primary hypertension TOME OLE TABLETA TODOS LOS NAM EN LA MANANA 90 tablet 3 024 Active Tirzepatide-Artemio ght Management (Zepbound) 2.5 MG/0.5ML solution auto-injector Inject 0.5 mL (2.5 mg) under the skin 1 (one) time per week. 2 mL 11 025 Active Acetaminophen (Mapap) 500 MG capsuleIndicati ons:Acute hip pain, right TAKE 1-2 CAPSULE BY ORAL ROUTE EVERY 6 HOURS NEEDED 30 capsule Active losartan (Cozaar) 25 MG tablet TAKE 1 TABLET BY MOUTH EVERY MORNING WITH 50 MG 90 tablet Active cyclobenzaprine (Flexeril) 10 MG tablet TOME OLE TABLETA TODOS LOS NAM AL ACOSTARSE PARA EL ESPASMO MUSCULAR CUANDO SEA NECESARIO 30 tablet Active loratadine (Claritin) 10 MG tablet TOME OLE TABLETA TODOS LOS NAM 90 tablet 1 Active hydrocortisone 2.5 % creamIndication s:Rash APPLY TOPICALLY TWICE A DAY 28 g Active cholecalciferol (D3-1000) 25 MCG (1000 UT) capsule TOME OLE CAPSULA TODO LOS NMA 90 capsule Active levothyroxine (Synthroid, Levoxyl) 75 MCG tabletIndicatio ns:Hypothyroidi sm (acquired) take 1 tablet by mouth every morning (DO NOT TAKE WITH ANY OTHER MEDICATION OR FOOD) 90 tablet Active omeprazole (PriLOSEC) [address] capsuleIndicati ons:Gastroesoph ageal reflux disease, unspecified whether esophagitis present TOME 1 CAPSULA POR VIA ORAL TODOS LOS NAM BEFORE A MEAL 90 capsule Active Symbicort 160-4.5 MCG/ACT inhaler Inhale 2 puffs bid and may use 1-2 puffs as needed for difficulty breathing (no more than 12 puffs daily). Rinse mouth with water after use to reduce aftertaste and incidence of candidiasis. Do not swallow. 1 each Active albuterol 108 (90 Base) MCG/ACT inhaler Inhale 2 puffs every 4 (four) hours if needed for wheezing or shortness of breath. Maximum 8 puffs per day 18 g 2025 Active Lidocaine 4 % gel Apply to affected area (hip and back) once or twice daily as needed for pain 113 g Active traMADol (Ultram) 50 MG tabletIndicatio ns:Lumbar sprain, initial encounter Take 1 tablet (50 mg) by mouth every 12 (twelve) hours if needed for severe pain. 14 tablet 025 Active albuterol (2.5 MG/3ML) 0.083% nebulizer solutionIndicat ions:Moderate persistent asthma with acute exacerbation Take 3 mL (2.5 mg) by nebulization every 4 (four) hours if needed for wheezing. 75 mL 3 025 Active traMADol (Ultram) 50 MG tabletIndicatio ns:Lumbar sprain, initial encounter Take 1 tablet (50 mg) by mouth every 12 (twelve) hours if needed for severe pain. 14 tablet 024 2024 Discontinued(R eorder (will not trigger notification to Pharmacy)) loratadine (Claritin) 10 MG tablet TOME OLE TABLETA TODOS LOS NAM 90 tablet 1 024 2024 Discontinued(R eorder (will not trigger notification to Pharmacy)) hydrocortisone 2.5 % creamIndication s:Rash APPLY TOPICALLY TWICE A DAY 28 g 1 024 2024 Discontinued(R eorder (will not trigger notification to Pharmacy)) cholecalciferol (D3-1000) 25 MCG (1000 UT) capsule TOME OLE CAPSULA TODOS LOS NAM 90 capsule 3 024 2024 Discontinued(R eorder (will not trigger notification to Pharmacy)) albuterol (2.5 MG/3ML) 0.083% nebulizer solutionIndicat ions:Moderate persistent asthma with acute exacerbation TAKE 3 ML (2.5 MG) BY NEBULIZATION CADA CUATRO HORAS CUANDO SEA NECESARIO PARA LA SIBILANCIA 75 mL 3 024 2024 Discontinued(R eorder (will not trigger notification to Pharmacy)) levothyroxine (Synthroid, Levoxyl) 75 MCG tabletIndicatio ns:Hypothyroidi sm (acquired) TAKE 1 TABLET BY MOUTH EVERY MORNING (DO NOT TAKE WITH ANY OTHER MEDICATION OR FOOD) 90 tablet 3 024 2024 Discontinued(R eorder (will not trigger notification to Pharmacy)) omeprazole (PriLOSEC) [address] capsuleIndicati ons:Gastroesoph ageal reflux disease, unspecified whether esophagitis present TOME 1 CAPSULA POR VIA ORAL TODOS LOS NAM BEFORE A MEAL 90 capsule 1 024 2024 Discontinued(R eorder (will not trigger notification to Pharmacy)) Symbicort 160-4.5 MCG/ACT inhaler Inhale 2 puffs bid and may use 1-2 puffs as needed for difficulty breathing (no more than 12 puffs daily). Rinse mouth with water after use to reduce aftertaste and incidence of candidiasis. Do not swallow. 1 each 3 025 2024 Discontinued(R eorder (will not trigger notification to Pharmacy)) albuterol 108 (90 Base) MCG/ACT inhaler Inhale 2 puffs every 4 (four) hours if needed for wheezing or shortness of breath. Maximum 8 puffs per day 18 g 3 025 2024 Discontinued(R eorder (will not trigger notification to Pharmacy)) Lidocaine 4 % gel Apply to affected area (hip and back) once or twice daily as needed for pain 113 g 1 025 2024 Discontinued(R eorder (will not trigger notification to Pharmacy)) cyclobenzaprine (Flexeril) 10 MG tablet TOME OLE TABLETA TODOS LOS NAM AL ACOSTARSE PARA EL ESPASMO MUSCULAR CUANDO SEA NECESARIO 30 tablet 025 2024 Discontinued Active Problems Problem Noted Date Diagnosed Date Left facial numbness 10/21/2024 Assessment & Plan (10/21/2024 7:14 PM EDT): Cn intact, No motor weakness Monitor, pt aware of signs symptoms to report Muscle spasm 10/19/2024 Assessment & Plan (10/21/2024 7:13 PM EDT): Left neck, suspect sig muscle tension and associated headache Pt has tolerated msk relaxor, renew Encouraged walking and stretching as tolerated Rest Right hip pain 08/14/2024 Assessment & Plan (08/20/2024 11:18 PM EST): - evaluate with X-ray - home exercise - recommended PT; patient is not interested - diclofenac gel Abfraction 06/05/2024 Chest pain 11/01/2023 Assessment & Plan (11/01/2023 5:06 PM EDT): EKG done today, nml sinus rhythm, borderline qtc -refer to director of clinical education for eval Hypokalemia 11/01/2023 Assessment & Plan (08/20/2024 11:19 PM EST): Pt is taking chlorthalidone. Will check potassium today. If low, we will discontinue chlorthalidone. Assessment & Plan (11/01/2023 2:55 PM EDT): Pt is taking chlorthalidone. Will check potassium today. If low, we will adjust chlorthalidone. Excessive attrition of teeth, limited to enamel 09/29/2023 Localized gingival recession 09/01/2023 Missing teeth, acquired 09/01/2023 Dental calculus 09/01/2023 Sensitivity of root structure of tooth Primary hypertension 11/29/2022 Assessment & Plan (08/20/2024 11:17 PM EST): -Goal BP < 140/90 per JNC-8 and < 130/80 per ACC/AHA guideline -Continue working on lifestyle modifications -Continue self-monitoring BP. -Continue chlorthalidone 12.5 mg daily with KCl. Consider discontinuing if persistently low K. -Continue losartan 75 mg daily -Follow up in 3 mo, sooner if any problem arises Assessment & Plan (11/01/2023 2:38 PM EDT): [...] due to Danette's thyroiditis Assessment & Plan (08/20/2024 11:19 PM EST): -Most recent TSH 2.89 on 08/08/23 -Current replacement: levothyroxine 75 mcg daily -Continue current replacement and check lab every year Assessment & Plan (08/14/2023 2:58 PM EST): [...] -Not on any medication -Not connected with [facility] provider Assessment & Plan (07/25/2022 2:07 PM EST): -Not on any medication -Not connected with [facility] provider Asthma 11/19/2013 Assessment & Plan (08/14/2023 2:52 PM EST): -Last exacerbation in Feb 2022. Seen in [facility]. Rx prednisone and azithromycin. Negative COVID -Followed by allergy / configuration specialist -Continue Symicort -Continue montelukast -Continue albuterol neb and inhaler prn --Pt uses nebulizer treatment at home because her symptoms respond better and faster to nebulizer treatment Assessment & Plan (11/23/2022 4:53 PM EDT): -Last exacerbation in Feb 2022. Seen in [facility]. Rx prednisone and azithromycin. Negative COVID -Followed by allergy / configuration specialist -Continue Symicort -Continue montelukast -Continue albuterol neb and inhaler prn --Pt uses nebulizer treatment at home because her symptoms respond better and faster to nebulizer treatment Assessment & Plan (07/25/2022 1:55 PM EST): -Last exacerbation in Feb 2022. Seen in [facility]. Rx prednisone and azithromycin. Negative COVID -Followed by allergy / configuration specialist -Continue Symicort -Continue montelukast -Continue albuterol neb and inhaler prn --Pt uses nebulizer treatment at home because her symptoms respond better and faster to nebulizer treatment Allergic rhinitis 12/06/2012 Assessment & Plan (08/14/2023 3:00 PM EST): -Previously followed by Dr. Whitehead, allergy / configuration specialist -Continue loratadine -Continue montelukast -Continue immunotherapy -Continue fluticasone nasal Assessment & Plan (11/29/2022 7:45 AM EDT): -Previously followed by Dr. Whitehead, allergy / configuration specialist -Continue loratadine -Continue montelukast -Continue immunotherapy -Continue fluticasone nasal Assessment & Plan (07/25/2022 2:06 PM EST): -Followed by Dr. Whitehead, allergy / configuration specialist -Continue loratadine -Continue montelukast -Continue immunotherapy -Continue fluticasone nasal Chronic back pain 12/06/2012 Assessment & Plan (07/25/2022 2:07 PM EST): -Previously evaluated by paint factory worker at [facility] -s/p L4 TFESI -Continue back exercise at home Obesity 12/06/2012 Assessment & Plan (08/20/2024 11:19 PM EST): -Work on lifestyle modifications -S/p phentermine treatment for 3 mos. Pt was able to lose 8 lbs. -Rx semaglutide; patient did not receive it -Rx tirzepatide. Assessment & Plan (11/01/2023 5:07 PM EDT): [...] Encounters Date Type Department Care Team Description 12/03/2024 Refill [facility] CH[facility] MED & PEDS [address] [place], [place] [phone] Corin Doyle MD Lumbar sprain, initial encounter 12/03/2024 Refill [facility] MEDICINE [address] [place] [address] Corin Doyle MD Rash; Hypothyroidism (acquired); Gastroesophageal reflux disease, unspecified whether esophagitis present; Moderate persistent asthma with acute exacerbation 12/03/2024 Refill [facility] MEDICINE [address] [place] [address] Eddie Guerrero MD Moderate persistent asthma with acute exacerbation 11/14/2024 Refill [facility] WALK-IN CENTER [address] [place], [place] [phone] Annette Lugo NP 11/02/2024 Telephone [facility] MEDICINE [address] [place], [place] [phone] Shraddha Sandoval MA may recall 10/29/2024 Refill [facility] W[facility] [address] [place] [address] Corin Doyle MD 10/19/2024 4:00 PM EDT Office Visit [facility] [address] [place] [address] Annette Lugo NP Muscle spasm (Primary Dx); Acute hip pain, right; Left facial numbness 09/28/2024 Population Health Risk Score [facility] () Department [address] [place] [phone] Provider, Population Health Generic from Last 3 Months Immunizations Immunization Administration Dates Next Due Hep B, Adolescent [...] your housing situation today? I have rubina sing 08/14/[address] you li [...] Sign Reading Time Taken Comments Blood Pressure 130/88 10/19/2024 4:05 PM EDT Pulse 70 10/19/2024 4:05 PM EDT Temperature 36.7 ??C (98 ??F) 10/19/2024 4:05 PM EDT Respiratory Rate 16 10/19/2024 4:05 PM EDT Oxygen Saturation 99% 10/19/2024 4:05 PM EDT Inhaled Oxygen Concentration - - Weight 88.9 kg (196 lb) 10/19/2024 4:05 PM EDT Height 157.5 cm (5' 2 ) 10/19/2024 4:05 PM EDT Body Mass Index 35.85 10/19/2024 4:05 PM EDT Plan of Treatment Upcoming Encounters Date Type Department Care Team (Late st Contact Info) Description 12/19/2024 3:00 PM EDT Medication Management [facility] MEDICINE [address] [place] [address] Sam Peace, PharmD [address] [place] [address] 12/31/2024 3:45 PM EDT Office Visit [facility] MEDICINE [address] [place] [address] Corin Doyle MD [address] [place], [place] [phone] Health Maintenance Due Date Last Done Comments CT Colonography 1975 Colonoscopy 1975 Colorectal Cancer Screening 1975 FIT DNA/Cologuard 1975 FIT 1975 FOBT 1975 Sigmoidoscopy 1975 Disability Screening 1975 Family Planning (PISQ) 01/31/1991 Pap Smear 01/31/1997 Cervical Cancer Screening 11/25/2022 HPV/Cotest 11/25/2022 11/25/2017 Dental Oral Exam 03/02/2024 09/01/2023, 05/2022, 02/02/2019, Additional history exists Dental Prophylaxis 03/02/2024 09/01/2023, 0 11/25/2021, 08/04/2018, Additional history exists COVID-19 Vaccine ( season) 2024 12/23/2020, 11/25/2020 Influenza Vaccine (#1) 2024 , 04/09/2019, 04/24/2018, Additional history exists Dental X-Ray: Bitewings 09/02/2024 09/01/19 24, 11/25/2021, 02/02/2019, Additional history exists Dental X-Ray: Full Mouth 11/26/2024 11/25/2021, 07/20 Alcohol/Substance Use Screening 08/14/2025 08/14/2024 Depression Screening 08/14/2025 08/14/2024, 08/14/19 25 SDOH Screening 08/14/2025 08/14/2024 Tobacco Screening 10/19/2025 10/19/2024 Mammogram 01/25/2026 01/26/2024, 11/15, 06/19/2021, Additional history exists Zoster Vaccines (1 of 2) 01/31/2026 Lipid Panel 08/14/2029 08/14/2024, 07/19, 07/23/2020, Additional history exists DTaP/Tdap/Td Vaccines (3 - Td or Tdap) 11/17/2031 11/16/2021, 07/20/2011 RSV Patients and Patients Aged 60 years or older (1 - 1-dose 75+ series) 01/31/2051 Hepatitis B Vaccines Discontinued 11/16/2007, 07/22/2006, 01/26/2006, Additional history exists HIV Screening Completed 07/23/2020, 01/29/2020 Pneumococcal Vaccine: Pediatrics (0 to 5 Years) and At-Risk Patients (6 to 49) Years) Completed 08/08/2023, 05/02/2014 Hepatitis C Screening [...] patient's age to complete this topic Meningococcal B Vaccine Aged Out No l onger eligible based on patient's age to complete [...] Procedure Name Priority Date/Time Associated Diagnosis Comments LIPID PANEL WITH REFLEX TO DIRECT LDL Routine 08/14/2024 4:05 PM EST Primary hypertension BI US BREAST LIMITED LEFT Routine 01/26/2024 [...] ESTABLISHED PATIENT Routine 09/01/2023 3:00 PM EST INTRAORAL - COMPLETE SERIES OF RADIOGRAPHIC IMAGES Routine 11/25/2021 12:00 AM EDT HIV 1/2 ANTIGEN/ANTIBODY, FOURTH GENERATION W/RFL Routine 07/23/2020 12:19 PM EST ZZZ HISTORICAL HPV MRNA E6/E7 Routine 11/25/2017 10:52 AM EDT from Last 3 Months or Most Recently Relevant to Health Maintenance Results * Lipid Panel with Reflex to Direct LDL (08/14/2024 4:05 PM EST) Triglycerides 114 <150 mg/dL [facility] Comment:Desirable Triglyceri de: less than 150 mg/dLBorderline High Triglyceride 150-199 mg/dLHigh Triglyceride: 200-499 mg/dLVery High Triglyceride: greater than or equal to 5OO mg/dL Cholesterol 146 <200 mg/dL LABS Comment:Desirable Cholestero l: less than 200 mg/dLBorderline High Cholesterol: 200-239 mg/dLHigh Cholesterol: greater than 239 mg/dL LDL Cholesterol Calculated 83 <100 mg/dL LABS Comment:Desirable LDL: less than 100 mg/dLNear Optimal/Above Optimal LDL: 110- 129 mg/dLBorderline High LDL: 130-159 mg/dLHigh LDL: 160-189 mg/dLVery High LDL: greater than or equal to 190 mg/dL HDL Cholesterol 41 >40 mg/dL [facility] Comment:Desirable HDL: great er than 40 mg/dL Note: This HDL assay may give artificially low results in patients with liver disease. Blood 08/14/2024 4:05 PM EST 08/14/2024 5:33 PM EST us Corin Doyle MD LAB BLOOD ORDERABLES Final Resul t LABS [address] [place] [phone] * BI US Breast Limited Left (01/26/2024 3:08 PM EDT) Anatomical Region Laterality Modality Breast Left Ultrasound 01/26/2024 3:08 PM EDT Narrative 01/26/2024 4:54 PM EDT ? [facility] [place] ? [address] ?[place] [phone] ? Ultrasound Report ? Signed ? Patient: Janelle León G ?MR#: [id number] ?? [id number] ? : 1975 ?Acct:[id number] ? Age/Sex: 48 / F ?ADM Date: 01/26/24 ? Loc: HO.MAMMO ? Attending Dr: Corin Doyle MD ? Ordering Physician: Corin Doyle MD ?? Date of Service: 01/26/24 ?? Procedure(s): US breast LT limited mamm only ?? Accession Number(s): [id number] ? cc: Corin Doyle MD ? EXAMINATION: [...] 1651 ? DD/ 1508 ? TD/TT: ? Powder Coat Painter: ? Procedure Note Jeane Horner - 01/26/2024 [facility] [address] [place] [address] Dr. [place], [place] [phone] Ultrasound Report Signed Patient: Janelle León GMR#: [id number] : 1975Acct:[id number] Age/Sex: 48 / FADM Date: 01/26/24 Loc: HO.MAMMO Attending Dr: Corin Doyle MD Ordering Physician: Corin Doyle MD Date of Service: 01/26/24 Procedure(s): US breast LT limited mamm only Accession Number(s): [id number] cc: Corin Doyle MD EXAMINATION: MM DIAGNOSTIC [...] in OV> 01/26/24 1651 DD/ 1508 TD/TT: Powder Coat Painter: us Corin Doyle MD IMG US PROCEDURES Final Result * Hepatitis A,B,C Profile (11/11/2023 8:41 AM EDT) Hepatitis A IgM Nonreactive Nonreactive LABS Comment:IgM antibodies to GUZMÁN V not detected; does not exclude earlyacute or recovered HAV infection. ~Hepatitis B Surface Antibody REACTIVE Nonreactive LABS Comment:REACTIVE: > 11.99 mI U/mL Hepatitis B Core Antibody Nonreactive Nonreactive LABS Hepatitis C Antibody Nonreactive Nonreactive LABS Comment:Antibodies to HCV no t detected; does not exclude early acuteHCV infection. Hepatitis B Surface Ag Negative Negative LABS Blood Venous blood specimen / Unknown 11/11/2023 8:41 AM EDT 11/11/2023 11:40 AM EDT us Corin Doyle MD LAB BLOOD ORDERABLES Final Resul t LABS [address] [place] [phone] * HIV 1/2 ANTIGEN/ANTIBODY,FOURTH GENERATION W/RFL (07/23/2020 12:19 PM EST) HIV-1/2 ANTIGEN AND ANTIBODIES, 4TH GENERATION W/ REFLEX NON-REACT LU NON-REACT LU [facility] Comment: HIV-1 antigen and HIV-1/HIV-2 [...] ? For additional information please refer to http://education.TransferWise/faq/JIO541 (This link is being provided for informational/ educational purposes only.) ? The performance of this assay has not been clinically validated in patients less than 2 years old. ?? 07/23/2020 12:1 9 PM EST Corin Doyle MD LAB BLOOD ORDERABLES Final Resul t Performing Organization Address [facility] Co de Phone Number [facility] [address] * HPV mRNA E6/E7 (11/25/2017 10:52 AM EDT) HPV mRNA E6/E7 Not Detected NOT DETECTED [facility] Comment: This test was performed using the APTIMA(R) HPV Assay ([employer] This assay detects E6/E7 viral messenger RNA (mRNA) from 14 high-risk HPV types (16,18,31,33,35,39,45,51, 52,56,58,59,66,68). For additional information please refer to: http://education.TransferWise/faq/JKK146e2 (This link is being provided for informational/ educational purposes only.) Test Performed by [facility], [facility], [address] [place] [phone] Arsenio Flor M.D., Ph.D., Director of Laboratories , [facility] [id number] Please note: ??Effective 03/29/2016, HPV testing will be performed using [employer]'s APTIMA test which targets mRNA. Detecting mRNA instead of DNA, as in older methods, offers significant improvements in specificity. 11/25/2017 10:5 2 AM EDT us Historical Provider HISTORICAL/NON ORDERABLE LABS Final Result Performing Organization Address [facility] Co de Phone Number [facility] [address] from Last 3 Months or Most Recently Relevant to Health Maintenance Insurance [address] [place], [place] D[employer] MEDICAID STAND ADULT Care Teams Sales Systems Engineer Relationship Specialty Start Date End Date Corin Doyle MD [address] [place] [address] PCP - General Family Medicine 07/18/18 Danay Carmen Interpretive NaturalistInfectious Diseases Physician 12/09/23 Danay Carmen Interpretive NaturalistInfectious Diseases Physician 08/27/24
--- OUTSIDE RECORDS SUMMARY | 2024-12-04 16:40 | XMS_ITS | Encounter Summary ---
Author Organization [employer] Address [address] [facility] 7 [place] [address] Care Team Providers Care Microfilm Clerk Name Role Phone Corin Doyle MD Primary Care Provider [phone] Reason for Visit * Reason Onset Date Comments Med Refill 03/29/2024 Encounter Details Date Type Department Care Team ([facility] st Contact Info) Description 03/29/2024 Refill [facility] MEDICINE [address] [place], [place] [phone] Corin Doyle MD [address] [place] [address] Social History Tobacco Use Types Packs/Day Years [...] Description 12/19/2024 3:00 PM EDT Medication Management [facility] MED[facility] [address] [place] [phone] Sam Peace, PharmD [address] [place] [phone] 12/31/2024 3:45 PM EDT Office Visit [facility] MED[facility] [address] [place] [phone] Corin Doyle MD [address] [place] [phone] documented as of this encounter Visit Diagnoses Not on filedocumented in this encounter Additional Health Concerns Assessment Noted Time PHQ-9 Depression Total Score: 0 11/24/19 23 3:58 PM EDT documented as of this encounter Care Teams Microfilm Clerk Relationship Specialty Start Date End Date Corin Doyle MD [address] [place] [phone] PCP - General Family Medicine 07/18/18 Danay Carmen Head Wrestling CoachOil Well Perforator Operator 12/09/23 Danay Carmen Head Wrestling CoachOil Well Perforator Operator 08/27/24 documented as of this encounter
--- OUTSIDE RECORDS SUMMARY | 2024-12-04 16:40 | XMS_ITS | Encounter Summary ---
Author Organization [employer] Address [address] [place] [address] 7 [place] [address] Care Team Providers Care Vp Purchasing Name Role Phone Corin Doyle MD Primary Care Provider [phone] Reason for Visit * Reason Comments Med Refill Encounter Details Date Type Department Care Team ([facility] st Contact Info) Description 12/14/2022 Refill [facility] MEDICINE [address] [place], [place] [phone] Corin Doyle MD [address] [place], [place] [phone] LLQ pain Social History Tobacco Use Types [...] Description 12/19/2024 3:00 PM EDT Medication Management [facility] MEDICINE [address] [place] [phone] Sam Peace, PharmD [address] [place] [phone] 12/31/2024 3:45 PM EDT Office Visit [facility] MEDICINE [address] [place] [phone] Corin Doyle MD [address] [place] [phone] documented as of this encounter Visit Diagnoses Diagnosis LLQ pain Abdominal pain, left lower quadrant documented in this encounter Additional Health Concerns Assessment Noted Time PHQ-9 Depression Total Score: 0 11/24/19 23 3:58 PM EDT documented as of this encounter Care Teams Vp Purchasing Relationship Specialty Start Date End Date Corin Doyle MD [address] [place] [phone] PCP - General Family Medicine 07/18/18 Danay Carmen Production Crew SupervisorFood Preparer 12/09/23 Danay Carmen Production Crew SupervisorFood Preparer 08/27/24 documented as of this encounter
--- OUTSIDE RECORDS SUMMARY | 2024-12-04 16:40 | XMS_ITS | Encounter Summary ---
Author Organization [employer] Address [address] [facility] 7 [place] [address] Care Team Providers Care New Grad Rn Name Role Phone Corin Doyle MD Primary Care Provider [phone] Reason for Visit * Reason Onset Date Comments Med Refill 07/12/2024 Encounter Details Date Type Department Care Team ([facility] st Contact Info) Description 07/12/2024 Refill [facility] [address] [place], [place] [phone] Corin Doyle MD [address] [place] [address] Social History Tobacco Use Types Packs/Day Years [...] Description 12/19/2024 3:00 PM EDT Medication Management [facility] [address] [place] [phone] Sam Peace, PharmD [address] [place] [address] 12/31/2024 3:45 PM EDT Office Visit [facility] [address] [place] [address] Corin Doyle MD [address] [place] [address] documented as of this encounter Visit Diagnoses Not on filedocumented in this encounter Additional Health Concerns Assessment Noted Time PHQ-9 Depression Total Score: 0 11/24/19 23 3:58 PM EDT documented as of this encounter Care Teams New Grad Rn Relationship Specialty Start Date End Date Corin Doyle MD [address] [place] [address] PCP - General Family Medicine 07/18/18 Danay Carmen Tub WasherRipsaw Operator 12/09/23 Danay Carmen Tub WasherRipsaw Operator 08/27/24 documented as of this encounter
--- OUTSIDE RECORDS SUMMARY | 2024-12-04 16:40 | XMS_ITS | Encounter Summary ---
Author Organization [employer] Address [address] [facility] 7 [place] [address] Care Team Providers Care Clerical Assistant Name Role Phone Corin Doyle MD Primary Care Provider [phone] Reason for Visit * Reason Onset Date Comments Med Refill 03/23/2024 Encounter Details Date Type Department Care Team ([facility] st Contact Info) Description 03/23/2024 Refill [facility] [address] [place], [place] [phone] Corin Doyle MD [address] [place] [address] Social History Tobacco Use Types Packs/Day Years [...] 12/19/2024 3:00 PM EDT Medication Management [facility] [address] [place] [phone] Sam Peace, PharmD [address] [place] [address] 12/31/2024 3:45 PM EDT Office Visit [facility] [address] [place] [phone] Corin Doyle MD [address] [place] [address] documented as of this encounter Visit Diagnoses Not on filedocumented in this encounter Additional Health Concerns Assessment Noted Time PHQ-9 Depression Total Score: 0 11/24/19 23 3:58 PM EDT documented as of this encounter Care Teams Clerical Assistant Relationship Specialty Start Date End Date Corin Doyle MD [address] [place] [address] PCP - General Family Medicine 07/18/18 Danay Carmen Sports CartoonistTire Room Supervisor 12/09/23 Danay Carmen Sports CartoonistTire Room Supervisor 08/27/24 documented as of this encounter
--- OUTSIDE RECORDS SUMMARY | 2024-12-04 16:40 | XMS_ITS | Encounter Summary ---
Author Organization [employer] Address [address] [place] [address] 7 [place] [address] Care Team Providers Care Chronometer Repairer Name Role Phone Corin Doyle MD Primary Care Provider [phone] Reason for Visit * Reason Onset Date Comments Med Refill 12/03/2024 Encounter Details Date Type Department Care Team ([facility] st Contact Info) Description 12/03/2024 Refill [facility] [address] [place] [address] Corin Doyle MD [address] [place], [place] [phone] Rash; Hypothyroidism (acquired); Gastroesophageal reflux disease, unspecified whether esophagitis present; Moderate persistent asthma with acute exacerbation Social [...] is your housing situation today? I have rbuina mccurdy 08/14/[address] you [...] Description 12/19/2024 3:00 PM EDT Medication Management [facility] [address] [place] [phone] Sam Peace, PharmD [address] [place] [address] 12/31/2024 3:45 PM EDT Office Visit [facility] [address] [place] [address] Corin Doyle MD [address] [place] [address] documented as of this encounter Visit Diagnoses Diagnosis Rash Rash and other nonspecific skin eruption Hypothyroidism (acquired) Unspecified hypothyroidism Gastroesophageal reflux disease, unspecified whether esophagitis present Moderate persistent asthma with acute exacerbation documented in this encounter Additional Health Concerns Assessment Noted Time PHQ-9 Depression Total Score: 0 08/14/19 25 3:31 PM EST documented as of this encounter Care Teams Chronometer Repairer Relationship Specialty Start Date End Date Corin Doyle MD [address] [place] [address] PCP - General Family Medicine 07/18/18 Danay Carmen Drafter GeophysicalSenior Business Development Analyst 12/09/23 Danay Carmen Drafter GeophysicalSenior Business Development Analyst 08/27/24 documented as of this encounter
--- OUTSIDE RECORDS SUMMARY | 2024-12-04 16:40 | XMS_ITS | Encounter Summary ---
Author Organization [employer] Address [address] [place] [address] 7 [place] [address] Care Team Providers Care Rv Mechanic Name Role Phone Corin Doyle MD Primary Care Provider [phone] Encounter Details Date Type Department Care Team (Late Contact Info) Description 06/28/2022 Orders Only [facility] [address] [place], [place] [phone] Belgica Lanza RN Social History Tobacco Use [...] Department Care Team (Late Contact Info) Description 12/19/2024 3:00 PM EDT Medication Management [address] [address] Sam Peace, PharmD [address] [place] [address] 12/31/2024 3:45 PM EDT Office Visit [facility] [address] [place] [address] Corin Doyle MD [address] [place] [address] [phone] documented as of this encounter Visit Diagnoses Not on filedocumented in this encounter Care Teams Rv Mechanic Relationship Specialty Start Date End Date Corin Doyle MD [address] [place] [address] PCP - General Family Medicine 07/18/18 Danay Carmen Inspector Set Up And Lay OutReplacer 12/09/23 Danay Carmen Inspector Set Up And Lay OutReplacer 08/27/24 documented as of this encounter
--- OUTSIDE RECORDS SUMMARY | 2024-12-04 16:40 | XMS_ITS | Encounter Summary ---
Author Organization [employer] Address [address] [facility] 7 [place] [address] Care Team Providers Care Assistant Cook Name Role Phone Corin Doyle MD Primary Care Provider [phone] Reason for Visit * Reason Onset Date Comments Med Refill 01/25/2024 Encounter Details Date Type Department Care Team ([facility] st Contact Info) Description 01/25/2024 Refill [facility] [address] [place] [address] Corin Doyle MD [address] [place] [address] Social History Tobacco Use Types Packs/Day Years [...] Description 12/19/2024 3:00 PM EDT Medication Management [facility] [address] [place] [phone] Sam Peace, PharmD [address] [place] [address] 12/31/2024 3:45 PM EDT Office Visit [facility] [address] [place] [address] Corin Doyle MD [address] [place] [address] documented as of this encounter Visit Diagnoses Not on filedocumented in this encounter Additional Health Concerns Assessment Noted Time PHQ-9 Depression Total Score: 0 11/24/19 23 3:58 PM EDT documented as of this encounter Care Teams Assistant Cook Relationship Specialty Start Date End Date Corin Doyle MD [address] [place] [address] PCP - General Family Medicine 07/18/18 Danay Carmen Palletizer OperatorWater Main Inspector 12/09/23 Danay Carmen Palletizer OperatorWater Main Inspector 08/27/24 documented as of this encounter
--- OUTSIDE RECORDS SUMMARY | 2024-12-04 16:40 | XMS_ITS | Encounter Summary ---
Author Organization [employer] Address [address] [place] [address] 7 [place] [address] Care Team Providers Care Sheet Metal Duct Installer Name Role Phone Corin Doyle MD Primary Care Provider [phone] Reason for Referral * Imaging (Routine) - Closed Specialty Diagnoses / Procedures Referred By Jacey t Referred To Contact Radiology Diagnoses Breast cancer screening by mammogram Procedures BI Mammogram Screening Tomosynthesis Bilateral Corin Doyle MD [address] [place] [address] Phone: tel: fax: [facility] [address] [place] [address] Phone: tel: fax: Referral ID Status Reason Start Date Expiration Date Visits Re quested Visits Authorized [id number] Closed 11/01/2023 10/31/2024 1 1 * Consultation (Routine) - Canceled Specialty Diagnoses / Procedures Referred By Contac t Referred To Contact Gastroenterology Diagnoses Colon cancer screening Corin Doyle MD [address] [place] [address] Phone: tel: fax: Referral ID Status Reason Start Date Expiration Date Visits Requested Visits Authorized [id number] Canceled Specialty Services Required 11/01/2023 10/31/2024 1 1 * Imaging (Routine) - Closed Specialty Diagnoses / Procedures Referred By Jacey t Referred To Contact Radiology Diagnoses Elevated liver enzymes Procedures US Abdomen Comp w elastography Corin Doyle MD [address] [place] [address] Phone: tel: fax: [facility] [address] [place], [place] Phone: tel: fax: Referral ID Status Reason Start Date Expiration Date Visits Re quested Visits Authorized [id number] Closed 11/01/2023 10/31/2024 1 1 Encounter Details Date Type Department Care Team (Late st Contact Info) Description 11/01/2023 Orders Only [facility] [address] [place] [phone] Corin Doyle MD [address] [place] [address] Elevated liver enzymes (Primary Dx); Breast cancer [...] Description 12/19/2024 3:00 PM EDT Medication Management [facility] [address] [place] [phone] Sam Peace, PharmD [address] [place] [address] 12/31/2024 3:45 PM EDT Office Visit [facility] [address] [place] [address] Corin Doyle MD [address] [place] [address] Scheduled Referrals Name Type Priority Associated Diagnoses [...] EDT Narrative 12/30/2023 5:50 AM EDT ? [facility] [place] ? [address] ?[place] [address] ? Mammography Report ? Signed ? Patient: Janelle León ?MR#: [id number] ?? [id number] ? : 1975 ?Acct:[id number] ? Age/Sex: 48 / F ?ADM Date: 11/28/ ? Loc: HO.MAMMO ? Attending Dr: Corin Doyle MD ? Ordering Physician: Yanira,Corin MD ?Results: 0Incomple ?? te: Needs Additional Imaging Evaluation ? Date of Service: 11/28/ ?Follow Up: Additional Imagi ?? ng ? Procedure(s): MM tomosynthesis screening BI ?? Accession Number(s): [id number] ? cc: Corin Doyle MD ? EXAMINATION: [...] in OV> ? 12/30/23 0546 ? DD/ ? TD/TT: ? Compensation Supervisor: ? Procedure Note Donotuseinterpreter, Image - 12/30/2023 [facility] [address] [place] [address] Mammography Report Signed Patient: Janelle León GMR#: [id number] : 1975Acct:[id number] Age/Sex: 48 / FADM Date: 11/29/23 Loc: MAMMHamlet Attending Dr: Corin Doyle MD Ordering Physician: Corin Doyle MDResults: 0Incomple te: Needs Additional Imaging Evaluation Date of Service: 11/29/23Follow Up: Additional Imagi ng Procedure(s): MM tomosynthesis screening BI Accession Number(s): [id number] cc: Corin Doyle MD EXAMINATION: MM SCREENING DIGITAL BREAST [...] signed by Antonia Willis MD in OV> 06/14/24 0546 DD/ 1557 TD/TT: Compensation Supervisor: us Corin Doyle MD IMG BI PROCEDURES Edited Result - Final * US Abdomen Comp w elastography (11/22/2023 11:50 AM EDT) Anatomical Region Laterality Modality Abdomen Ultrasound 11/22/2023 11:5 0 AM EDT Narrative 11/28/2023 5:18 PM EDT ? [facility] ?[address] ?[place] [address] ? Ultrasound Report ? Signed ? Patient: Janelle León ?MR#: [id number] ?? [id number] ? : 1975 ?Acct:[id number] ? Age/Sex: 48 / F ?ADM Date: 11/22/23 ? Loc: HO.US ? Attending Dr: Corin Doyle MD ? Ordering Physician: Corin Doyle MD ?? Date of Service: 11/22/23 ?? Procedure(s): US abdomen comp w elastography ?? Accession Number(s): [id number] ? cc: Corin Doyle MD ? EXAMINATION: [...] 1714 ? DD/ 1150 ? TD/TT: ? Compensation Supervisor: KIMI ? Procedure Note [place], Image - 11/28/2023 [place] [address] Ultrasound Report Signed Patient: Janelle León GMR#: [id number] : 1975Acct:[id number] Age/Sex: 48 / FADM Date: 11/22/23 Loc: HO.US Attending Dr: Corin Doyle MD Ordering Physician: Corin Doyle MD Date of Service: 11/22/23 Procedure(s): US abdomen comp w elastography Accession Number(s): [id number] cc: Coirn Doyle MD EXAMINATION: US COMPLETE ABDOMEN WITH [...] in OV> 11/28/23 1714 DD/ 1150 TD/TT: Compensation Supervisor: KIMI us Corin Doyle MD IMG US PROCEDURES Final Result * (ABNORMAL) Potassium (11/11/2023 8:41 AM EDT) Pathologist [facility] Potassium 3.2(L) 3.3 - 5.1 mmol/L [facility] Blood Venous blood specimen / Unknown 11/11/2023 8:41 AM EDT 11/11/2023 11:40 AM EDT us Corin Doyle MD LAB BLOOD ORDERABLES Final Resul t [facility] [address] [place] [phone] * Hepatitis A,B,C Profile (11/11/2023 8:41 AM EDT) Pathologist [facility] Hepatitis A IgM Nonreactive Nonreactive [facility] Comment:IgM antibodies to GUZMÁN V not detected; does not exclude earlyacute or recovered HAV infection. ~Hepatitis B Surface Antibody REACTIVE Nonreactive [facility] Comment:REACTIVE: > 11.99 mI U/mL Hepatitis B Core Antibody Nonreactive Nonreactive [facility] Hepatitis C Antibody Nonreactive Nonreactive [facility] Comment:Antibodies to HCV no t detected; does not exclude early acuteHCV infection. Hepatitis B Surface Ag Negative Negative [facility] Blood Venous blood specimen / Unknown 11/11/2023 8:41 AM EDT 11/11/2023 11:40 AM EDT us Corin Doyle MD LAB BLOOD ORDERABLES Final Resul t [facility] [address] [place] [address] [phone] * (ABNORMAL) CBC auto differential (11/11/2023 8:41 AM EDT) White Blood Count 6.6 4.8 - 10.8 X10*3/uL [facility] Red Blood Count 5.08 4.20 - 5.50 X10*6/uL [facility] Hemoglobin 13.4 12.0 - 16.0 g/dl [facility] Hematocrit 42.1 37.0 - 47.0 % [facility] Mean Corpuscular Volume 82.9 80.0 - 98.0 fL [facility] Mean Corpuscular Hemoglobin 26.4(L) 27.0 - 33.0 pg [facility] Mean Corpuscular HGB Conc 31.8 31.0 - 35.0 g/dl [facility] Red Cell Distribution Width 14.4 11.0 - 16.0 % [facility] Platelet Count 267 160 - 400 X10*3/uL [facility] Mean Platelet Volume 11.0 9.4 - 12.3 fL [facility] Neutrophils Percent Auto 59.9 45 - 73 % [facility] Imm Gran Pct Auto 0.6(H) 0.0 - 0.4 % [facility] Lymphocytes Percent Auto 26.2 20 - 40 % [facility] Monocytes Percent Auto 8.4 2 - 11 % [facility] Eosinophils Percent Auto 3.8 0 - 4 % [facility] Basophils Percent Auto 1.1 0 - 2 % [facility] NRBC Pct Auto 0.0 0.0 - 0.2 /100WBC [facility] Neutrophils Absolute Auto 3.9 2.0 - 8.3 x10*3/uL [facility] Imm Gran Abs Auto 0.04(H) 0.00 - 0.03 X10*3/uL [facility] Lymphocytes Absolute Auto 1.7 1.2 - 4.9 X10*3/uL [facility] Monocytes Absolute Auto 0.6 0.1 - 1.2 X10*3/uL [facility] Eosinophils Absolute Auto 0.3 0.0 - 0.4 X10*3/uL [facility] Basophils Absolute Auto 0.1 0.0 - 0.2 X10*3/uL [facility] NRBC Abs Auto 0.000 0.0 - 0.012 X10*3/uL [facility] Blood Venous blood specimen / Unknown 11/11/2023 8:41 AM EDT 11/11/2023 11:40 AM EDT us Corin Doyle MD LAB BLOOD ORDERABLES Final Resul t Performing Organization Address City/State/[facility] Co de Phone Number [facility] [address] [place] [address] [phone] documented in this encounter Visit Diagnoses Diagnosis Elevated liver enzymes- Primary Other nonspecific abnormal serum enzyme levels Breast cancer screening by mammogram Colon cancer screening Special screening for malignant neoplasms, colon Hypokalemia Hypopotassemia documented in this encounter Additional Health Concerns Assessment Noted Time PHQ-9 Depression Total Score: 0 11/24/19 23 3:58 PM EDT documented as of this encounter Care Teams Sheet Metal Duct Installer Relationship Specialty Start Date End Date Corin Doyle MD [address] [place] [address] PCP - General Family Medicine 07/18/18 Danay Carmen Knurling Machine TenderParachute Accessories Attacher 12/09/23 Danay Carmen Knurling Machine TenderParachute Accessories Attacher 08/27/24 documented as of this encounter
--- OUTSIDE RECORDS SUMMARY | 2024-12-04 16:40 | XMS_ITS | Encounter Summary ---
Demographics Address [address] [place] [address] Work Phone Mobile Phone Home Phone Email Address Preferred Language es Marital Status Episcopalian Affiliation Unknown Race Other Race Ethnic Group Unknown Author Organization [employer] Address [address] 7t [place] [address] Care Team Providers Care Lens Generating Machine Tender Name Role Phone Corin Doyle MD Primary Care Provider [phone] Encounter Details Date Type Department Care Team ([facility] st Contact Info) Description 05/04/2024 Orders Only [facility] [address] [place], [place] [phone] Corin Doyle MD [address] [place], [place] [phone] Primary hypertension (Primary Dx); Acquired hypothyroidism; Hypokalemia; [...] 12/19/2024 3:00 PM EDT Medication Management [facility] [address] [place] [address] Sam Peace, PharmD [address] [place] [phone] 12/31/2024 3:45 PM EDT Office Visit [facility] [address] [place] [address] Corin Doyle MD [address] [place] [address] documented as of this encounter Procedures Procedure Name Priority Date/Time Associated Diagnosis Comments TSH W/REFLEX TO FT4 Routine 08/14/2024 4 :05 PM EST Acquired hypothyroidism LIPID PANEL WITH REFLEX TO DIRECT LDL Routine 08/14/2024 4:05 PM EST Primary hypertension ALBUMIN, RANDOM URINE W/CREATININE Routine 08/14/2024 4:05 PM EST Primary hypertension URIC ACID Routine 08/14/2024 4:05 PM EST Hypokalemia Adverse effect of thiazide diuretic, sequela MAGNESIUM Routine 08/14/2024 4:05 PM EST Hypokalemia HEMOGLOBIN A1C Routine 08/14/2024 4:05 PM EST Acquired hypothyroidism Class 2 obesity due to excess calories without serious comorbidity with body mass index (BMI) of 38.0 to 38.9 in adult Adverse effect of thiazide diuretic, sequela COMPREHENSIVE METABOLIC PANEL Routine 08/14/2024 4:05 PM EST Primary hypertension documented in this encounter Results * Albumin, Random Urine W/Creatinine (08/14/2024 4:05 PM EST) Creatinine, Urine 312.90 mg/dL [facility] Microalbumin Urine 15.0 mg/L [facility] Microalbum Creatinine Ratio Ur 4.7 <30 ug/mg cr [facility] Comment:Albumin/Creatinine R atio Reference Ranges: Normal: < 30 ug/mg creatinine Microalbuminuria: 30 - 300 ug/mg creatinineClinical Albuminuria: > 300 ug/mg creatinine Urine 08/14/2024 4:05 PM EST 08/14/2024 5:43 PM EST us Corin Doyle MD LAB URINE ORDERABLES Final Resul t [facility] [address] [place] [address] [phone] * Hemoglobin A1c (08/14/2024 4:05 PM EST) Hemoglobin A1c 5.1 <6.0 % [facility] Comment:Hemoglobin A1C Refer ence Range Adults: 4.8 - 6.0 % Non diabetic: < 6.0 % Goal: < 7.0 %Additional Action Suggested: > 8.0 %Note: Hemoglobin A1c results are invalid for patients with abnormal amounts of HbF. Blood transfusions may impact the HbA1c concentration in the patient sample. Estimated Average Glucose 100 mg/dL [facility] Comment:eAG = Estimated ave rage glucose which is %A1C expressed asaverage glucose, using the formula of the D5T-XmdhelfQrtvsxh Glucose study (ADAG), Diabetes Care, Vol.31,#8,Feb. 2007 Blood Venous blood specimen / Unknown 08/14/2024 4:05 PM EST 08/14/2024 5:33 PM EST us Corin Doyle MD LAB BLOOD ORDERABLES Final Resul t Performing Organization Address City/[facility]/ZIP Co de Phone Number [facility] [address] [place] [phone] * Lipid Panel with Reflex to Direct LDL (08/14/2024 4:05 PM EST) Triglycerides 114 <150 mg/dL [facility] Comment:Desirable Triglyceri de: less than 150 mg/dLBorderline High Triglyceride 150-199 mg/dLHigh Triglyceride: 200-499 mg/dLVery High Triglyceride: greater than or equal to 5OO mg/dL Cholesterol 146 <200 mg/dL [facility] Comment:Desirable Cholestero l: less than 200 mg/dLBorderline High Cholesterol: 200-239 mg/dLHigh Cholesterol: greater than 239 mg/dL LDL Cholesterol Calculated 83 <100 mg/dL [facility] Comment:Desirable LDL: less than 100 mg/dLNear Optimal/Above Optimal LDL: 110- 129 mg/dLBorderline High LDL: 130-159 mg/dLHigh LDL: 160-189 mg/dLVery High LDL: greater than or equal to 190 mg/dL HDL Cholesterol 41 >40 mg/dL [facility] Comment:Desirable HDL: great er than 40 mg/dL Note: This HDL assay may give artificially low results in patients with liver disease. Blood 08/14/2024 4:05 PM EST 08/14/2024 5:33 PM EST us Corin Doyle MD LAB BLOOD ORDERABLES Final Resul t Performing Organization Address City/[facility]/ZIP Co de Phone Number [facility] [address] [place] [address] [phone] * Magnesium (08/14/2024 4:05 PM EST) Magnesium 2.2 1.6 - 2.6 mg/dL [facility] Blood Venous blood specimen / Unknown 08/14/2024 4:05 PM EST 08/14/2024 5:33 PM EST Corin Doyle MD LAB BLOOD ORDERABLES Final Resul t Performing Organization Address [facility] de Phone Number [facility] [address] [place] [phone] * Uric acid (08/14/2024 4:05 PM EST) Uric Acid 4.5 2.4 - 5.7 mg/dL [facility] Blood Venous blood specimen / Unknown 08/14/2024 4:05 PM EST 08/14/2024 5:33 PM EST Corin Doyle MD LAB BLOOD ORDERABLES Final Resul t Performing Organization Address [facility] de Phone Number [facility] [address] [place] [phone] * TSH with Reflex to Free T4 (08/14/2024 4:05 PM EST) TSH reflex Free T4 3.48 0.32 - 4.0 uIU/mL [facility] Blood 08/14/2024 4:05 PM EST 08/14/2024 5:33 PM EST Corin Doyle MD LAB BLOOD ORDERABLES Final Resul t Performing Organization Address [facility] Phone Number [facility] [address] [place] [phone] * (ABNORMAL) Comprehensive Metabolic Panel (08/14/2024 4:05 PM EST) Sodium 143 135 - 145 mmol/L [facility] Potassium 3.1(L) 3.3 - 5.1 mmol/L [facility] Chloride 106 96 - 108 mmol/L [facility] Carbon Dioxide 30(H) 22 - 29 mmol/L [facility] Anion Gap 10(L) 12 - 20 [facility] Urea Nitrogen (BUN) 14 9 - 16 mg/dL [facility] Creatinine, Serum 0.70 0.5 - 1.4 mg/dL [facility] Estimated Glomerular Filt Rate >60 [facility] Comment:Chronic Kidney Disea se: Estimated GFR < 60 mL/min/1.51x3Ngnafy Kidney Disease: Estimated GFR < 15 mL/min/1.73m2 Glucose 72 60 - 115 mg/dL [facility] Calcium 9.2 8.4 - 10.2 mg/dL [facility] Bilirubin, Total 0.2 0.0 - 1.0 mg/dL [facility] Aspartate Amino Transferase 21 5 - 31 U/L [facility] Alanine Aminotransferase 24 0 - 31 U/L [facility] Total Protein 7.7 6.5 - 8.0 g/dL [facility] Albumin Level 4.1 3.5 - 5.0 g/dL [facility] Alkaline Phosphatase 109 39 - 117 U/L [facility] Blood Venous blood specimen / Unknown 08/14/2024 4:05 PM EST 08/14/2024 5:33 PM EST us Corin Doyle MD LAB BLOOD ORDERABLES Final Resul t [facility] [address] [place] [address] [phone] documented in this encounter Visit Diagnoses Diagnosis Primary hypertension- [...] documented as of this encounter Care Teams Lens Generating Machine Tender Relationship Specialty Start Date End Date Corin Doyle MD [address] [place] [phone] PCP - General Family Medicine 07/18/18 Danay Carmen Geoduck DiverMarble Finisher 12/09/23 Danay Carmen Geoduck DiverMarble Finisher 08/27/24 documented as of this encounter
--- OUTSIDE RECORDS SUMMARY | 2024-12-04 16:40 | XMS_ITS | Encounter Summary ---
Author Organization [employer] Address [address] [facility] 7 [place] [address] Care Team Providers Care Bus And Trolley Inspecting Dispatcher Name Role Phone Corin Doyle MD Primary Care Provider [phone] Reason for Visit * Reason Onset Date Comments Referral 10/18/2023 Encounter Details Date Type Department Care Team ([facility] st Contact Info) Description 10/18/2023 Telephone [facility] [address] [place] [address] Corin Doyle MD [address] [place] [address] Referral Social History Tobacco Use Types Packs/Day [...] - 10/18/2023 3:42 PM EDT Tc from [facility] with [facility] calling in regards referral for cardiology, stated pt discussed referral on last appt with PCP on 08/08 and the referral is to control high blood pressure. documented in this encounter Plan of Treatment Upcoming Encounters Date Type Department Care Team (Late st Contact Info) Description 12/19/2024 3:00 PM EDT Medication Management [facility] [address] [place] [phone] Sam Peace, PharmD [address] [place] [address] 12/31/2024 3:45 PM EDT Office Visit [facility] [address] [place] [address] Corin Doyle MD [address] [place] [address] documented as of this encounter Visit Diagnoses Not on filedocumented in this encounter Additional Health Concerns Assessment Noted Time PHQ-9 Depression Total Score: 0 11/24/19 23 3:58 PM EDT documented as of this encounter Care Teams Bus And Trolley Inspecting Dispatcher Relationship Specialty Start Date End Date Corin Doyle MD [address] [place] [address] PCP - General Family Medicine 07/18/18 Danay Carmen SpoolerGravity Prospecting Operator Helper 12/09/23 Danay Carmen SpoolerGravity Prospecting Operator Helper 08/27/24 documented as of this encounter
--- OUTSIDE RECORDS SUMMARY | 2024-12-04 16:40 | XMS_ITS | Encounter Summary ---
Author Organization [employer] Address [address] [place] [address] 7 [place] [address] Care Team Providers Care Administration Dean Name Role Phone Corin Doyle MD Primary Care Provider [phone] Reason for Visit * Reason Onset Date Comments Med Refill 11/14/2023 Encounter Details Date Type Department Care Team ([facility] st Contact Info) Description 11/14/2023 Refill [facility] [address] [place], [place] [phone] Corin Doyle MD [address] [place], [place] [phone] Rash Social History Tobacco Use Types Packs/Day [...] Description 12/19/2024 3:00 PM EDT Medication Management [facility] [address] [place] [phone] Sam Peace, PharmD [address] [place] [address] 12/31/2024 3:45 PM EDT Office Visit [facility] [address] [place] [address] Corin Doyle MD [address] [place] [address] documented as of this encounter Visit Diagnoses Diagnosis Rash Rash and other nonspecific skin eruption documented in this encounter Additional Health Concerns Assessment Noted Time PHQ-9 Depression Total Score: 0 11/24/19 23 3:58 PM EDT documented as of this encounter Care Teams Administration Dean Relationship Specialty Start Date End Date Corin Doyle MD [address] [place] [phone] PCP - General Family Medicine 07/18/18 Danay Carmen Field AttendantElementary Spanish Teacher 12/09/23 Danay Carmen Field AttendantElementary Spanish Teacher 08/27/24 documented as of this encounter
--- OUTSIDE RECORDS SUMMARY | 2024-12-04 16:40 | XMS_ITS | Encounter Summary ---
Author Organization [employer] Address [address] [facility] 7t [place] [address] Care Team Providers Care Caregiver Assisted Living Name Role Phone Corin Doyle MD Primary Care Provider [phone] Reason for Visit * Reason Onset Date Comments Med Refill 02/19/2024 Encounter Details Date Type Department Care Team (Late st Contact Info) Description 02/19/2024 Refill [facility] [address] [place] [address] Gabriela López MD [address] [place] [address] Lumbar sprain, initial encounter Social History Tobacco [...] Description 12/19/2024 3:00 PM EDT Medication Management [facility] [address] [place] [phone] Sam Peace, PharmD [address] [place] [address] 12/31/2024 3:45 PM EDT Office Visit [facility] [address] [place] [phone] Corin Doyle MD [address] [place] [address] [phone] documented as of this encounter Visit Diagnoses Diagnosis Lumbar sprain, initial encounter documented in this encounter Additional Health Concerns Assessment Noted Time PHQ-9 Depression Total Score: 0 11/24/19 23 3:58 PM EDT documented as of this encounter Care Teams Caregiver Assisted Living Relationship Specialty Start Date End Date Corin Doyle MD [address] [place] [phone] PCP - General Family Medicine 07/18/18 Daany Carmen Currency ExaminerMotel Keeper 12/09/23 Danay Carmen Currency ExaminerMotel Keeper 08/27/24 documented as of this encounter
--- OUTSIDE RECORDS SUMMARY | 2024-12-04 16:40 | XMS_ITS | Encounter Summary ---
Author Organization [employer] Address [address] [facility] 7 [place] [address] Care Team Providers Care Chute Man Name Role Phone Corin Doyle MD Primary Care Provider [phone] Reason for Visit * Reason Onset Date Comments Med Refill 04/02/2024 Encounter Details Date Type Department Care Team ([facility] st Contact Info) Description 04/02/2024 Refill [facility] [address] [place], [place] [phone] Croin Doyle MD [address] [place] [address] Social History Tobacco Use Types Packs/Day Years [...] Description 12/19/2024 3:00 PM EDT Medication Management [facility]INE [address] [place] [phone] Sam Peace, PharmD [address] [place] [address] 12/31/2024 3:45 PM EDT Office Visit [facility] [address] [place] [address] Corin Doyle MD [address] [place] [address] documented as of this encounter Visit Diagnoses Not on filedocumented in this encounter Additional Health Concerns Assessment Noted Time PHQ-9 Depression Total Score: 0 11/24/19 23 3:58 PM EDT documented as of this encounter Care Teams Chute Man Relationship Specialty Start Date End Date Corin Doyle MD [address] [place] [address] PCP - General Family Medicine 07/18/18 Danay Carmen ExternShotblast Equipment Operator 12/09/23 Danay Carmen ExternShotblast Equipment Operator 08/27/24 documented as of this encounter
--- OUTSIDE RECORDS SUMMARY | 2024-12-04 16:40 | XMS_ITS | Encounter Summary ---
Author Organization [employer] Address [address] [facility] 7 [place] [address] Care Team Providers Care Rfid Developer Name Role Phone Corin Doyle MD Primary Care Provider [phone] Reason for Visit * Reason Onset Date Comments Med Refill 12/13/2023 Encounter Details Date Type Department Care Team ([facility] st Contact Info) Description 12/13/2023 Refill [facility] [address] [place], [place] [phone] Corin Doyle MD [address] [place] [address] Social History Tobacco Use Types Packs/Day Years [...] Description 12/19/2024 3:00 PM EDT Medication Management [facility] [address] [place] [phone] Sam Peace, PharmD [address] [place] [address] 12/31/2024 3:45 PM EDT Office Visit [facility] [address] [place] [address] Corin oDyle MD [address] [place] [address] documented as of this encounter Visit Diagnoses Not on filedocumented in this encounter Additional Health Concerns Assessment Noted Time PHQ-9 Depression Total Score: 0 11/24/19 23 3:58 PM EDT documented as of this encounter Care Teams Rfid Developer Relationship Specialty Start Date End Date Corin Doyle MD [address] [place] [address] PCP - General Family Medicine 07/18/18 Danay Carmen MinisterElectromechanical Assembly Technician 12/09/23 Danay Carmen MinisterElectromechanical Assembly Technician 08/27/24 documented as of this encounter
--- OUTSIDE RECORDS SUMMARY | 2024-12-04 16:40 | XMS_ITS | Encounter Summary ---
Author Organization [employer] Address [address] [facility] 7 [place] [address] Care Team Providers Care Farm Crew Leader Name Role Phone Corin Doyle MD Primary Care Provider [phone] Reason for Visit * Reason Onset Date Comments Med Refill 01/25/2024 Encounter Details Date Type Department Care Team ([facility] st Contact Info) Description 01/25/2024 Refill [facility] [address] [place] [address] Corin Doyle MD [address] [place] [address] Social History Tobacco Use Types Packs/Day Years [...] Description 12/19/2024 3:00 PM EDT Medication Management [facility] [address] [place] [phone] Sam Peace, PharmD [address] [place] [address] 12/31/2024 3:45 PM EDT Office Visit [facility] [address] [place] [phone] Corin Doyle MD [address] [place] [address] documented as of this encounter Visit Diagnoses Not on filedocumented in this encounter Additional Health Concerns Assessment Noted Time PHQ-9 Depression Total Score: 0 11/24/19 23 3:58 PM EDT documented as of this encounter Care Teams Farm Crew Leader Relationship Specialty Start Date End Date Corin Doyle MD [address] [place] [address] PCP - General Family Medicine 07/18/18 Danay Carmen Environmental Health Safety ManagerParenting Skills Instructor 12/09/23 Danay Carmen Environmental Health Safety ManagerParenting Skills Instructor 08/27/24 documented as of this encounter
--- OUTSIDE RECORDS SUMMARY | 2024-12-04 16:40 | XMS_ITS | Encounter Summary ---
Author Organization [employer] Address [address] [place] [address] 7 [place] [address] Care Team Providers Care Pearl Hand Name Role Phone Corin Doyle MD Primary Care Provider [phone] Reason for Visit * Reason Onset Date Comments Referral 01/26/2023 Encounter Details Date Type Department Care Team ([facility] st Contact Info) Description 01/26/2023 Telephone [facility]INE 230 [place] [address] Corin Doyle MD [address] [place] [address] Referral Social History Tobacco Use Types Packs/Day [...] 3:00 PM EDT Medication Management [facility] [address] [place] [phone] Sam Peace, PharmD [address] [place] [address] 12/31/2024 3:45 PM EDT Office Visit [facility] [address] [place] [address] Corin Doyle MD [address] [place] [address] [phone] documented as of this encounter Visit Diagnoses Not on filedocumented in this encounter Additional Health Concerns Assessment Noted Time PHQ-9 Depression Total Score: 0 11/24/19 23 3:58 PM EDT documented as of this encounter Care Teams Pearl Hand Relationship Specialty Start Date End Date Corin Doyle MD [address] [place] [address] [phone] PCP - General Family Medicine 07/18/18 Gabriella Carmen Dust Box WorkerFinisher Fiberglass Boat Parts 12/09/23 Gabriella Carmen Dust Box WorkerFinisher [employer] 08/27/24 documented as of this encounter
--- OUTSIDE RECORDS SUMMARY | 2024-12-04 16:40 | XMS_ITS | Encounter Summary ---
Author Organization [employer] Address [address] [facility] 7 [place] [address] Care Team Providers Care Driver Wheelchair Name Role Phone Corin Doyle MD Primary Care Provider [phone] Reason for Visit * Reason Onset Date Comments Nurse Triage 05/25/2024 Encounter Details Date Type Department Care Team ([facility] st Contact Info) Description 05/25/2024 Telephone [facility] [address] [place] [address] Corin Doyle MD [address] [place] [address] Nurse Triage Social History Tobacco Use Types [...] theER now. RN advises pt to call [facility] back when she is discharged in [...] Description 12/19/2024 3:00 PM EDT Medication Management [facility] [address] [place] [phone] Sam Peace, PharmD [address] [place] [address] 12/31/2024 3:45 PM EDT Office Visit [facility] [address] [place] [address] Corin Doyle MD [address] [place] [address] documented as of this encounter Visit Diagnoses Not on filedocumented in this encounter Additional Health Concerns Assessment Noted Time PHQ-9 Depression Total Score: 0 11/24/19 23 3:58 PM EDT documented as of this encounter Care Teams Driver Wheelchair Relationship Specialty Start Date End Date Corin Doyle MD [address] [place] [address] PCP - General Family Medicine 07/18/18 Danay Carmen Customer Loyalty RepresentativeSupervisor Cigar Making Machine 12/09/23 Danay Carmen Customer Loyalty RepresentativeSupervisor Cigar Making Machine 08/27/24 documented as of this encounter
== END 2024-12-04 15:51 | disposition home or self-care (01) ==
LOC: HO.MAMMO 15:50
PROVIDERS: PCP Family Medicine; Visit Provider Family Medicine
DX: Z13.89 Encounter for screening for other disorder (principal)

== ENCOUNTER 2024-12-31 16:16 | Outpatient (REF) | payer MEDICAID, SELFPAY ==
--- OUTSIDE RECORDS SUMMARY | 2024-12-31 17:52 | XMS_ITS | Encounter Summary ---
Author Organization [employer] Address [address] [facility] 7t [place] [address] Care Team Providers Care Informatics Scientist Name Role Phone Corin Doyle MD Primary Care Provider [phone] Reason for Visit * Reason Comments Med Change Request Encounter Details Date Type Department Care Team ([facility] Contact Info) Description 01/08/2024 Refill [facility] [address] [place], [place] [phone] Corin Doyle MD 230 [place], [place] [phone] Social History Tobacco Use Types Packs/Day Years [...] Care Team (Late st Contact Info) Description 2025 3:30 PM EDT Clinical Support [facility] [address] [place] [address] documented as of this encounter Visit Diagnoses Not on filedocumented in this encounter Additional Health Concerns Assessment Noted Time PHQ-9 Depression Total Score: 0 11/24/19 23 3:58 PM EDT documented as of this encounter Care Teams Informatics Scientist Relationship Specialty Start Date End Date Corin Doyle MD [address] [place] [address] PCP - General Family Medicine 07/18/18 Danay Carmen Lawn Care ProfessionalButting Saw Operator 12/09/23 Danay Carmen Lawn Care ProfessionalButting Saw Operator 08/27/24 documented as of this encounter
[2024-12-31 18:01] LABS: Anion Gap 11 (12-20); Blood Urea Nitrogen 14 mg/dL (9-16); Carbon Dioxide 27 mmol/L (22-29); Chloride 109 mmol/L (96-108); Potassium 3.7 mmol/L (3.3-5.1); Sodium 143 mmol/L (135-145)
[2024-12-31 18:02] LABS: Estimated Glomerular Filt Rate > 60; Glucose Random 71 mg/dL (60-115)
== END 2024-12-31 16:17 | disposition home or self-care (01) ==
LOC: HO.HHCL 16:16
PROVIDERS: Visit Provider Family Medicine
DX: E87.6 Hypokalemia (principal)
CPT/HCPCS: 36415; 80048

== ENCOUNTER 2025-03-01 15:39 | Outpatient (REF) | payer MEDICAID, SELFPAY ==
--- OUTSIDE RECORDS SUMMARY | 2025-03-01 15:44 | XMS_ITS | Encounter Summary ---
Author Organization [employer] Address [address] [address] [place] [address] Care Team Providers Care Strip Feeder Name Role Phone Corin Doyle MD Primary Care Provider [phone] Reason for Visit * Reason Comments Med Change Request Encounter Details Date Type Department Care Team ([facility] Contact Info) Description 01/08/2024 Refill [facility] [address] [place], [place] [phone] Corin Doyle MD [address] [place], [place] [phone] Social History Tobacco Use Types Packs/Day Years [...] Care Team (Late st Contact Info) Description 04/01/2025 3:30 PM EDT Telemedicine [facility] [address] [place] [phone] Sam Peace, PharmD [address] [place] [address] 04/02/2025 2:45 PM EDT Procedure Visit [facility] [address] [place] [phone] Karli Wells CNM [address] [place] [address] documented as of this encounter Visit Diagnoses Not on filedocumented in this encounter Additional Health Concerns Assessment Noted Time PHQ-9 Depression Total Score: 0 11/24/19 23 3:58 PM EDT documented as of this encounter Care Teams Strip Feeder Relationship Specialty Start Date End Date Corin Dolye MD [address] [place] [phone] PCP - General Family Medicine 07/18/18 Danay Carmen [employer] 12/09/23 Danay Carmen [employer] 08/27/24 documented as of this encounter
[2025-03-01 16:56] LABS: Anion Gap 12 (12-20); Blood Urea Nitrogen 16 mg/dL (9-16); Calcium 9.6 mg/dL (8.4-10.2); Carbon Dioxide 33 mmol/L (22-29); Chloride 100 mmol/L (96-108); Estimated Glomerular Filt Rate > 60; Potassium 3.2 mmol/L (3.3-5.1); Sodium 142 mmol/L (135-145)
== END 2025-03-01 15:40 | disposition home or self-care (01) ==
LOC: HO.HHCL 15:39
PROVIDERS: PCP Family Medicine; Visit Provider Family Medicine
DX: I10 Essential (primary) hypertension (principal)
CPT/HCPCS: 36415; 80048

== ENCOUNTER 2025-04-01 15:05 | Outpatient (REF) | payer MEDICAID, SELFPAY ==
[2025-04-01 16:54] LABS: Anion Gap 10 (12-20); Blood Urea Nitrogen 15 mg/dL (9-16); Calcium 8.9 mg/dL (8.4-10.2); Carbon Dioxide 29 mmol/L (22-29); Chloride 109 mmol/L (96-108); Estimated Glomerular Filt Rate > 60; Magnesium 2.1 mg/dL (1.6-2.6); Potassium 3.6 mmol/L (3.3-5.1); Sodium 144 mmol/L (135-145)
--- OUTSIDE RECORDS SUMMARY | 2025-04-01 20:30 | XMS_ITS | Clinical Summary ---
Author Organization [employer] Address [address] [facility] [address] [place] [address] Care Team Providers Care Rolled Gold Plater Name Role Phone Corin Doyle MD Primary Care Provider [phone] Sam Peace PharmD Unavailable [phone] Allergies Active Allergy Reactions Criticality Noted Date Comments Aspirin Shortness of breath,Swelling High Other reaction(s): Rash Montelukast Palpitations Low 03/01/2025 Nsaids Swelling Medications EPINEPHrine (Epipen) 0.3 MG/0.3ML injection syringe INJECT 0.3MG CUANDO SEA NECESARIO ANAPHYLAXIS 30 DAYS 022 Active loratadine (Claritin) 10 MG tablet TOME OLE TABLETA TODOS LOS NAM 90 tablet 1 025 Active levothyroxine (Synthroid, Levoxyl) 75 MCG tabletIndicatio ns:Hypothyroidi sm (acquired) take 1 tablet by mouth every morning (DO NOT TAKE WITH ANY OTHER MEDICATION OR FOOD) 90 tablet 3 025 Active omeprazole (PriLOSEC) [address] capsuleIndicati ons:Gastroesoph ageal reflux disease, unspecified whether esophagitis present TOME 1 CAPSULA POR VIA ORAL TODOS LOS NAM BEFORE A MEAL 90 capsule 1 025 Active Symbicort 160-4.5 MCG/ACT inhaler Inhale 2 puffs bid and may use 1-2 puffs as needed for difficulty breathing (no more than 12 puffs daily). Rinse mouth with water after use to reduce aftertaste and incidence of candidiasis. Do not swallow. 1 each 3 Active albuterol 108 (90 Base) MCG/ACT inhaler Inhale 2 puffs every 4 (four) hours if needed for wheezing or shortness of breath. Maximum 8 puffs per day 18 g 3 2025 Active traMADol (Ultram) 50 MG tabletIndicatio ns:Lumbar sprain, initial encounter Take 1 tablet (50 mg) by mouth every 12 (twelve) hours if needed for severe pain. 14 tablet Active albuterol (2.5 MG/3ML) 0.083% nebulizer solutionIndicat ions:Moderate persistent asthma with acute exacerbation Take 3 mL (2.5 mg) by nebulization every 4 (four) hours if needed for wheezing. 75 mL Active cholecalciferol (D3-1000) 25 MCG (1000 UT) capsule TOME OLE CAPSULA TODOS LOS NAM 90 capsule 3 Active furosemide (Lasix) 20 MG tablet Take 1 tablet (20 mg) by mouth every other day. 45 tablet 3 2025 Active Tirzepatide-Artemio ght Management (Zepbound) 2.5 MG/0.5ML solution auto-injector Inject 0.5 mL (2.5 mg) under the skin 1 (one) time per week. 2 mL 11 Active Acetaminophen (Mapap) 500 MG capsuleIndicati ons:Acute hip pain, right TAKE 1-2 CAPSULE BY ORAL ROUTE EVERY 6 HOURS NEEDED 30 capsule Active hydrocortisone 2.5 % creamIndication s:Rash APPLY TOPICALLY TWICE A DAY 28 g 1 025 Active Lidocaine 4 % gel APPLY TO THE AFFECTED AREA (HIP AND BACK) ONCE OR TWICE A DAY NEEDED FOR PAIN 30 g 025 Active potassium chloride CR (Klor-Con M20) 20 MEQ ER tablet TAKE 1 TABLET BY MOUTH DAILY WHEN DIRECTED BY HEALTH FABRIC CUTTER. DO NOT CRUSH OR CHEW. 30 tablet 025 Active cyclobenzaprine (Flexeril) 10 MG tablet TAKE 1 TABLET BY MOUTH AT BEDTIME NEEDED FOR MUSCLE SPASMS. 30 tablet 025 Active losartan (Cozaar) 50 MG tabletIndicatio ns:Primary hypertension Take 1 tablet by mouth daily with 25 mg tablet (TDD=75 mg day) 90 tablet 3 025 Active losartan (Cozaar) 25 MG tabletIndicatio ns:Primary hypertension Take 1 tablet by mouth daily with 50 mg tablet (TDD=75 mg day) 90 tablet 3 025 Active losartan (Cozaar) 50 MG tabletIndicatio ns:Primary hypertension TOME OLE TABLETA TODOS LOS NAM EN LA MANANA 90 tablet 3 024 2024 Discontinued(R eorder (will not trigger notification to Pharmacy)) losartan (Cozaar) 25 MG tablet TAKE 1 TABLET BY MOUTH EVERY MORNING WITH 50 MG 90 tablet 025 2024 Discontinued(R eorder (will not trigger notification to Pharmacy)) hydrocortisone 2.5 % creamIndication s:Rash APPLY TOPICALLY TWICE A DAY 28 g 1 025 2024 Discontinued(R eorder (will not trigger notification to Pharmacy)) Lidocaine 4 % gel Apply to affected area (hip and back) once or twice daily as needed for pain 30 g 025 2024 Discontinued(R eorder (will not trigger notification to Pharmacy)) cyclobenzaprine (Flexeril) 10 MG tablet TAKE 1 TABLET BY MOUTH AT BEDTIME NEEDED FOR MUSCLE SPASMS. 30 tablet 025 2024 Discontinued potassium chloride CR (Klor-Con M20) 20 MEQ ER tablet Take 1 tablet by mouth daily when directed by health director medicare sales. Do not crush or chew. 30 tablet 025 2024 Discontinued Active Problems Problem Noted Date Diagnosed Date Primary osteoarthritis of right knee 02/11/2025 Assessment & Plan (02/11/2025 3:50 PM EDT): Unclear if she also has meniscal injury, recommended rest, elevate her leg and apply lidocaine gel to affected area. She is allergic to NSAIDs and seems to have significant reaction/angioedema?. Use Tylenol as needed for pain only Referred to PT Recommended rest at work every 3-4 hours for up to 15 minutes, letter for PT with the patient for the next 2 weeks, she needs to wear a knee brace Leg swelling 12/31/2024 Assessment & Plan (01/12/2025 5:48 PM EDT): - In the setting of varicose veins - patient states she has a compression stocking, but has difficulty wearing it every day - Continue elevating legs while at rest - Low-sodium diet - Will evaluate with venous studies and refer to vascular specialist Left facial numbness 10/21/2024 Assessment & Plan [...] not interested - diclofenac gel Abfraction 06/05/2024 Hypokalemia 11/01/2023 Assessment & Plan (01/12/2025 5:46 PM EDT): - Due to chlorthalidone, in the setting of asthma with albuterol use - Chlorthalidone was changed to furosemide -Currently on ARB - Will recheck Assessment & Plan (08/20/2024 11:19 PM EST): [...] tooth Primary hypertension 11/29/2022 Assessment & Plan (01/12/2025 5:46 PM EDT): -Goal BP < 130/80 per ACC/AHA guideline -Continue working on lifestyle modifications -Continue self-monitoring BP. -Continue furosemide 20 mg daily -Continue losartan 75 mg daily -Treatment history: Previously on thiazide diuretics which was discontinued due to low potassium. -Follow up for BP check in 3-4 weeks. If SBP is > 130 at home consistently or > 145 in the clinic, increase losartan to 100 mg daily. Assessment & Plan (08/20/2024 11:17 PM EST): [...] due to Danette's thyroiditis Assessment & Plan (01/12/2025 5:45 PM EDT): -Most recent TSH 3.48 on 08/14/2024 -Current replacement: levothyroxine 75 mcg daily -Continue current replacement and check lab every year Assessment & Plan (08/20/2024 11:19 PM EST): [...] S provider Asthma 11/19/2013 Assessment & Plan (01/02/2025 12:52 PM EDT): -Last exacerbation in Feb 2022. [place] [facility] [place] prednisone and azithromycin. Negative COVID -Followed by allergy / patient care specialist -Continue Symicort -Continue montelukast -Continue albuterol neb and inhaler prn --Pt uses nebulizer treatment at home because her symptoms respond better and faster to nebulizer treatment Assessment & Plan (08/14/2023 2:52 PM EST): -Last exacerbation in Feb 2022. [place] [facility] [place] prednisone and azithromycin. Negative COVID -Followed by allergy / patient care specialist -Continue Symicort -Continue montelukast -Continue albuterol neb and inhaler prn --Pt uses nebulizer treatment at home because her symptoms respond better and faster to nebulizer treatment Assessment & Plan (11/23/2022 4:53 PM EDT): -Last exacerbation in Feb 2022. [place] [facility] [place] Rx prednisone and azithromycin. Negative COVID -Followed by allergy / patient care specialist -Continue Symicort -Continue montelukast -Continue albuterol neb and inhaler prn --Pt uses nebulizer treatment at home because her symptoms respond better and faster to nebulizer treatment Assessment & Plan (07/25/2022 1:55 PM EST): -Last exacerbation in Feb 2022. Se[place] [facility] [place] Rx prednisone and azithromycin. Negative COVID -Followed by allergy / patient care specialist -Continue Symicort -Continue montelukast -Continue albuterol neb and inhaler prn --Pt uses nebulizer treatment at home because her symptoms respond better and faster to nebulizer treatment Allergic rhinitis 12/06/2012 Assessment & Plan (01/02/2025 12:51 PM EDT): -Previously followed by Dr. Whitehead, allergy / patient care specialist -Continue loratadine -Continue montelukast -Continue immunotherapy -Continue fluticasone nasal Assessment & Plan (08/14/2023 3:00 PM EST): -Previously followed by Dr. Whitehead, allergy / patient care specialist -Continue loratadine -Continue montelukast -Continue immunotherapy -Continue fluticasone nasal Assessment & Plan (11/29/2022 7:45 AM EDT): -Previously followed by Dr. Whitehead, allergy / patient care specialist -Continue loratadine -Continue montelukast -Continue immunotherapy -Continue fluticasone nasal Assessment & Plan (07/25/2022 2:06 PM EST): -Followed by Dr. 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 Pt was able to lose 8 lbs. -Rx semaglutide; patient did not receive it -Rx tirzepatide. PA was denied - She has been working on lifestyle modifications. She has hypertension. Hypothyroidism can adversely affect her metabolism and make it difficult to lose weight. She will benefit from GLP1 RA. - Will try prescribing tirzepatide or semaglutide again Assessment & Plan (08/20/2024 11:19 PM EST): [...] 2:04 PM EST): -Work on lifestyle modificatioins Resolved Problems Problem Noted Date Diagnosed Date Resolved Date Chest pain 11/01/2023 01/12/2025 Assessment & Plan (11/01/2023 5:06 PM EDT): EKG done today, nml sinus rhythm, borderline qtc -refer to barrel washer machine for eval Encounters Date Type Department Care Team Description 04/01/2025 Orders Only [facility] [address] [place] [address] Corin Doyle MD Primary hypertension (Primary Dx) 04/01/2025 Telephone [facility] [address] [place] [address] Corin Doyle MD 04/01/2025 Travel 04/01/2025 Telephone [facility] [address] [place] [address] Karli Wells, CHELITA chart prep 03/24/2025 Refill [facility] [address], [place] [address] Corin Doyle MD 03/23/2025 Refill [facility] [address] [place] [address] Corin Doyle MD 03/20/2025 Refill [facility] [address], [place] [address] Gabriela López MD 03/20/2025 Refill [facility] [address] [place] [address] Corin Doyle MD 03/19/2025 Refill [facility] [address] [place] [address] Corin Doyle MD 03/13/2025 Refill [facility] [address], [place] [address] Corin Doyle MD 03/06/2025 Refill [facility] [address] [place] [address] Corin Doyle MD [facility] 03/01/2025 Results Follow-Up [facility] [address], [place] [address] Corin Doyle MD Basic Metabolic Panel 03/01/2025 Orders Only [facility] [address], [place] [address] Corin Doyle MD Hypokalemia (Primary Dx) 03/01/2025 Orders Only [facility] [address], [place] [address] Corin Doyle MD 03/01/2025 Travel 03/01/2025 Refill [facility] [address], [place] [address] Corin Doyle MD 02/26/2025 Travel 02/24/2025 Refill [facility] [address], [place] [address] Corin Doyle MD 02/15/2025 3:30 PM EDT Clinical Support [facility] [address], [place] [address] Saranya Burt, RN Primary hypertension 02/15/2025 Telephone [facility] [address], [place] [address] Corin Doyle MD 02/15/2025 Travel 02/14/2025 Travel 02/11/2025 3:40 PM EDT Office Visit [facility] [address], [place] [address] Gabriela López MD Primary osteoarthritis of right knee (Primary Dx); Acute hip pain, right 02/11/2025 Travel 02/07/2025 Refill [facility] [address] [place], [place] [address] Corin Doyle MD 2025 3:30 PM EDT Clinical Support [facility] [address], [place] [address] Blanca Rendon RN Primary hypertension 2025 Travel 01/31/2025 Travel 01/30/2025 Refill [facility] [place] [address] Corin Doyle MD 01/23/2025 Refill [facility] [address] [place] [address] Corin Doyle MD 01/21/2025 Telephone [facility] [address] [facility] [place] [address] Corin Doyle MD Prior Authorization ( PA: Kellen) 01/15/2025 2:30 PM EDT Office Visit [facility] OPTOMETRY [address] [place] [address] Albert, Yuli, OD Presbyopia (Primary Dx) 01/15/2025 Travel 01/02/2025 Telephone [facility] [address] [place] [address] Saranya Burt, ROBERTO Care Coordination 01/01/2025 Orders Only [facility] [address] [place] [address] Corin Doyle MD 01/01/2025 Results Follow-Up [facility] [address] [place] [address] Corin Doyle MD Basic Metabolic Panel 12/31/2024 3:45 PM EDT Office Visit [facility] [place] [address] Corin Doyle MD Moderate persistent asthma with acute exacerbation (Primary Dx); Primary hypertension; Allergic rhinitis, unspecified seasonality, unspecified trigger; 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; Hypokalemia; Leg swelling; Varicose veins of both lower extremities, unspecified whether complicated; Class 2 obesity due to excess calories without serious comorbidity with body mass index (BMI) of 36.0 to 36.9 in adult 12/31/2024 Travel from Last 3 Months Immunizations Immunization Administration [...] Sign Reading Time Taken Comments Blood Pressure 114/72 04/01/2025 3:44 PM EDT Pulse 60 04/01/2025 3:44 PM EDT Temperature 36.8 C (98.2 F) 02/11/2025 3:11 PM EDT Respiratory Rate 16 02/15/2025 3:31 PM EDT Oxygen Saturation 100% 02/15/2025 3:31 PM EDT Inhaled Oxygen Concentration - - Weight 90.3 kg (199 lb) 02/11/2025 3:11 PM EDT Height 157.5 cm (5' 2 ) 10/19/2024 4:05 PM EDT Body Mass Index 36.4 10/19/2024 4:05 PM EDT Plan of Treatment Upcoming Encounters Date Type Department Care Team (Late st Contact Info) Description 04/02/2025 2:45 PM EDT Procedure Visit [address] [address] Karli Wells, POORNIMA [address] [place] [address] 05/06/2025 2:30 PM EDT Office Visit [address] [address] Corin Doyle MD [address] [place] [phone] 07/01/2025 3:30 PM EST Medication Management [address] [address] Sam Peace, PharmD [address] [place] [phone] Health Maintenance Due Date Last Done Comments CT Colonography 1975 Colonoscopy 1975 Colorectal Cancer Screening 1975 FIT DNA/Cologuard 1975 FIT 1975 FOBT 1975 Sigmoidoscopy 1975 Family Planning (PISQ) 01/31/1991 Pap Smear 01/31/1997 Cervical Cancer Screening 11/25/2022 HPV/Cotest 11/25/2022 11/25/2017 Dental Oral Exam 03/02/2024 09/01/2023, 05/2022, 02/02/2019, Additional history exists Dental Prophylaxis 03/02/2024 09/01/2023, 0 11/25/2021, 08/04/2018, Additional history exists Dental X-Ray: Bitewings 09/02/2024 09/01/19 24, 11/25/2021, 02/02/2019, Additional history exists Dental X-Ray: Full Mouth 11/26/2024 11/25/2021, 07/20 COVID-19 Vaccine ( season) 2025 12/23/2020, 11/25/2020 Influenza Vaccine (#1) 2025 , 04/09/2019, 04/24/2018, Additional history exists Alcohol/Substance Use Screening 08/14/2025 08/14/2024 Depression Screening 08/14/2025 08/14/2024, 08/14/19 25 SDOH Screening 08/14/2025 08/14/2024 Disability Screening 12/31/2025 12/31/2024 Tobacco Screening 12/31/2025 12/31/2024 Mammogram 01/25/2026 01/26/2024, 11/15, 06/19/2021, Additional history [...] Years) and At-Risk Patients (6 to 49) Years Completed 08/08/2023, 05/02/2014 Hepatitis C Screening Completed [...] Procedure Name Priority Date/Time Associated Diagnosis Comments MAGNESIUM Routine 04/01/2025 3:26 PM EDT Hypokalemia BASIC METABOLIC PANEL Routine 04/01/2025 3:26 PM EDT Hypokalemia BASIC METABOLIC PANEL Routine 03/01/2025 3:44 PM EDT BASIC METABOLIC PANEL Routine 12/31/2024 4:17 PM EDT Hypokalemia LIPID PANEL WITH REFLEX TO DIRECT LDL [...] Recently Relevant to Health Maintenance Results * Magnesium (04/01/2025 3:26 PM EDT) Magnesium 2.1 1.6 - 2.6 mg/dL [facility] Blood Venous blood specimen / Unknown 04/01/2025 3:26 PM EDT 04/01/2025 4:08 PM EDT us Corin Doyle MD LAB BLOOD ORDERABLES Final Resul t [facility] [address] [place] [phone] * (ABNORMAL) Basic Metabolic Panel (04/01/2025 3:26 PM EDT) Only the most recent of3 resultswithin the time period is included. Sodium 144 135 - 145 mmol/L [facility] Potassium 3.6 3.3 - 5.1 mmol/L [facility] Chloride 109(H) 96 - 108 mmol/L [facility] Carbon Dioxide 29 22 - 29 mmol/L [facility] Anion Gap 10(L) 12 - 20 [facility] Urea Nitrogen (BUN) 15 9 - 16 mg/dL [facility] Creatinine, Serum 0.81 0.5 - 1.4 mg/dL [facility] Estimated Glomerular Filt Rate >60 [facility] Comment:Chronic Kidney Disea se: Estimated GFR < 60 mL/min/1.70u9Iwmjes Kidney Disease: Estimated GFR < 15 mL/min/1.73m2 Glucose 87 60 - 115 mg/dL [facility] Calcium 8.9 8.4 - 10.2 mg/dL [facility] Blood Venous blood specimen / Unknown 04/01/2025 3:26 PM EDT 04/01/2025 4:08 PM EDT Corin Doyle MD LAB BLOOD ORDERABLES Final Resul t Performing Organization Address City/[facility] Co de Phone Number [facility] [address] [place] [phone] * Lipid Panel with Reflex to Direct LDL (08/14/2024 4:05 PM EST) Triglycerides 114 <150 mg/dL [facility] Comment:Desirable Triglyceri de: less than 150 mg/dLBorderline High Triglyceride 150-199 mg/dLHigh Triglyceride: 200-499 mg/dLVery High Triglyceride: greater than or equal to 5OO mg/dL Cholesterol 146 <200 mg/dL [facility] Comment:Desirable Cholestero l: less than 200 mg/dLBorderline High Cholesterol: 200-239 mg/dLHigh Cholesterol: greater than 239 mg/dL LDL Cholesterol Calculated 83 <100 mg/dL [facility] Comment:Desirable LDL: less than 100 mg/dLNear Optimal/Above Optimal LDL: 110- 129 mg/dLBorderline High LDL: 130-159 mg/dLHigh LDL: 160-189 mg/dLVery High LDL: greater than or equal to 190 mg/dL HDL Cholesterol 41 >40 mg/dL [facility] Comment:Desirable HDL: great er than 40 mg/dL Note: This HDL assay may give artificially low results in patients with liver disease. Blood 08/14/2024 4:05 PM EST 08/14/2024 5:33 PM EST Corin Doyle MD LAB BLOOD ORDERABLES Final Resul t Performing Organization Address City/[facility]/ZIP Co de Phone Number [facility] [address] [place] [address] [phone] * BI US Breast Limited Left (01/26/2024 3:08 PM EDT) Anatomical Region Laterality Modality Breast Left Ultrasound 01/26/2024 3:08 PM EDT Narrative 01/26/2024 4:54 PM EDT [facility] [address] [place] [address] Ultrasound Report Signed Patient: Janelle León MR#: [id number] : 1975 Acct:[id number] Age/Sex: 48 / F ADM Date: 01/26/24 Loc: HO.MAMMO Attending Dr: Corin Doyle MD Ordering Physician: Corin Doyle MD Date of Service: 01/26/24 Procedure(s): US breast LT limited mamm only Accession Number(s): [id number] cc: Corin Doyle MD EXAMINATION: MM DIAGNOSTIC [...] in OV> 01/26/24 1651 DD/ 1508 TD/TT: Paleologist: Procedure Note Donotuseinterpreter, Image - 01/26/2024 [facility] [address] [place] [address] Ultrasound Report Signed Patient: Janelle León GMR#: [id number] : 1975Acct:[id number] Age/Sex: 48 / FADM Date: 01/26/24 Loc: HO.MAMMO Attending Dr: Corin Doyle MD Ordering Physician: Corin Doyle MD Date of Service: 01/26/24 Procedure(s): US breast LT limited mamm only Accession Number(s): [id number] cc: Corin Doyle MD EXAMINATION: MM DIAGNOSTIC [...] in OV> 01/26/24 1651 DD/ 1508 TD/TT: Paleologist: us Corin Doyle MD IMG US PROCEDURES Final Result * Hepatitis A,B,C Profile (11/11/2023 8:41 AM EDT) Hepatitis A IgM Nonreactive Nonreactive [facility] Comment:IgM antibodies to GUZMÁN V not detected; does not exclude earlyacute or recovered HAV infection. ~Hepatitis B Surface Antibody REACTIVE Nonreactive [facility] Comment:REACTIVE: > 11.99 mI U/mL Hepatitis B Core Antibody Nonreactive Nonreactive [facility] Hepatitis C Antibody Nonreactive Nonreactive [facility] Comment:Antibodies to HCV no t detected; does not exclude early acuteHCV infection. Hepatitis B Surface Ag Negative Negative [facility] Blood Venous blood specimen / Unknown 11/11/2023 8:41 AM EDT 11/11/2023 11:40 AM EDT Corin Doyle MD LAB BLOOD ORDERABLES Final Resul t Performing Organization Address [facility] Co de Phone Number [facility] [address] [place] [address] [phone] * HIV 1/2 ANTIGEN/ANTIBODY,FOURTH GENERATION W/RFL (07/23/2020 12:19 PM EST) HIV-1/2 ANTIGEN AND ANTIBODIES, 4TH GENERATION W/ REFLEX NON-[facility] Comment: HIV-1 antigen and HIV-1/HIV-2 antibodies were not detected. There is no laboratory evidence of HIV infection. PLEASE NOTE: This information has been disclosed to you from records whose confidentiality may be protected by state law. If your state requires such protection, then the state law prohibits you from making any further disclosure of the information without the specific written consent of the person to whom it pertains, or as otherwise permitted by law. A general authorization for the release of medical or other information is NOT sufficient for this purpose. For additional information please refer to http://education.Victiv.Teliportme/faq/GLO825 (This link is being provided for informational/ educational purposes only.) The performance of this assay has not been clinically validated in patients less than 2 years old. 07/23/2020 12:1 9 PM EST Corin Doyle MD LAB BLOOD ORDERABLES Final Resul t Performing Organization Address [facility] Co de Phone Number [facility] [address] * HPV mRNA E6/E7 (11/25/2017 10:52 AM EDT) HPV mRNA E6/E7 Not Detected NOT DETECTED [facility] Comment: This test was performed using the APTIMA(R) HPV Assay ([employer] This assay detects E6/E7 viral messenger RNA (mRNA) from 14 high-risk HPV types (16,18,31,33,35,39,45,51, 52,56,58,59,66,68). For additional information please refer to: http://education.Victiv.Teliportme/faq/DVL410m4 (This link is being provided for informational/ educational purposes only.) Test Performed by [employer], [employer] [facility], [address] [place] [address] Arsenio Flor M.D., Ph.D., Director of Laboratories , [facility] [id number] Please note: Effective 03/29/2016, HPV testing will be performed using [employer]'s APTIMA test which targets mRNA. Detecting mRNA instead of DNA, as in older methods, offers significant improvements in specificity. 11/25/2017 10:5 2 AM EDT us Historical Provider HISTORICAL/NON ORDERABLE LABS Final Result Performing Organization Address City/State/[facility] Co ga Phone Number [facility] [address]where [address] from Last 3 Months or Most Recently Relevant to Health Maintenance Insurance [facility] C[facility] [place] [facility] ADULT * Guarantor: Janelle León Account Type Relation to Patient Date of Phone Billing Address Personal/Family Self [address] [place] [address] * Guarantor: Janelle León Account Type Relation to Patient Date of Phone Billing Address Personal/Family Self [address] [place] [address] * Guarantor: Janelle León Account Type Relation to Patient Date of Phone Billing Address Personal/Family Self [address] [place] [address] Care Teams Rolled Gold Plater Relationship Specialty Start Date End Date Corin Doyle MD [address] [place] [address] PCP - General Family Medicine 07/18/18 Sam Peace, ConchisD [address] [place] [address] Pharmacist Pharmacy 03/06/25 Danay Carmen Retaining Room CutterSpindle Frame Carver 12/09/23 Danay Carmen Retaining Room CutterSpindle Frame Carver 08/27/24
--- OUTSIDE RECORDS SUMMARY | 2025-04-01 20:30 | XMS_ITS | Encounter Summary ---
Author Organization [employer] Address [address] [facility] 7t [place] [address] Care Team Providers Care Lean Facilitator Name Role Phone Corin Doyle MD Primary Care Provider [phone] Sam Peace PharmD Unavailable [phone] Encounter Details Date Type Department Care Team (Late Contact Info) Description 06/28/2022 Orders Only [facility] CH[facility] MED & PEDS [address] [place] [address] Belgica Lanza RN Social History Tobacco Use [...] Upcoming Encounters Date Type Department Care Team ([facility] Contact Info) Description 04/02/2025 2:45 PM EDT Procedure Visit [facility] MEDICINE [address] [place] [address] Karli Wells CNM [address] [place], [place] [phone] 05/06/2025 2:30 PM EDT Office Visit [facility] MEDICINE [address] [place] [address] Corin Doyle MD [address] [place] [address] [phone] 07/01/2025 3:30 PM EST Medication Management [facility] MEDICINE [address] [place] [address] Sam Peace, PharmD [address] [place] [address] documented as of this encounter Visit Diagnoses Not on filedocumented in this encounter Care Teams Lean Facilitator Relationship Specialty Start Date End Date Corin Doyle MD [address] [place] [address] [phone] PCP - General Family Medicine 07/18/18 Sam Peace, PharmD [address] [place] [address] Pharmacist Pharmacy 03/06/25 Danay Carmen Program AideReroller Hand 12/09/23 Danay Carmen Program AideReroller Hand 08/27/24 documented as of this encounter
--- OUTSIDE RECORDS SUMMARY | 2025-04-01 20:30 | XMS_ITS | Encounter Summary ---
Author Organization [employer] Address [address] [facility] [address] 7t [place] [address] Care Team Providers Care Cigarette Packing Machine Operator Name Role Phone Corin Doyle MD Primary Care Provider [phone] Sam Peace PharmD Unavailable [phone] Reason for Visit * Reason Onset Date Comments Med Refill 04/20/2024 Encounter Details Date Type Department Care Team (Late st Contact Info) Description 04/20/2024 Refill [facility] MEDICINE 230 [place] [address] Corin Doyle MD 230 [place] [address] Social History Tobacco Use Types Packs/Day Years [...] Description 04/02/2025 2:45 PM EDT Procedure Visit [facility] MEDICINE [address] [place] [address] Karli Wells CNM [address] [place] [address] 05/06/2025 2:30 PM EDT Office Visit [address] [address] Corin Doyle MD [address] [place] [address] 07/01/2025 3:30 PM EST Medication Management [address] [address] Sam Peace, PharmD [address] [place] [address] documented as of this encounter Visit Diagnoses Not on filedocumented in this encounter Additional Health Concerns Assessment Noted Time PHQ-9 Depression Total Score: 0 11/24/19 23 3:58 PM EDT documented as of this encounter Care Teams Cigarette Packing Machine Operator Relationship Specialty Start Date End Date Corin Doyle MD [address] [place] [address] PCP - General Family Medicine 07/18/18 Sam Peace, PharmD [address] [place] [address] Pharmacist Pharmacy 03/06/25 Danay Carmen Manager Nursing HomeHeat Treat Technician 12/09/23 Danay Carmen Manager Nursing HomeHeat Treat Technician 08/27/24 documented as of this encounter
--- OUTSIDE RECORDS SUMMARY | 2025-04-01 20:30 | XMS_ITS | Encounter Summary ---
Author Organization [employer] Address [address] [facility] [address] 7t [place] [address] Care Team Providers Care Publishing Editor Name Role Phone Corin Doyle MD Primary Care Provider [phone] Sam Peace PharmD Unavailable [phone] Encounter Details Date Type Department Care Team ([facility] st Contact Info) Description 01/01/2025 Orders Only [facility] MEDICINE [address] [place], [place] [phone] Corin Doyle MD 230 [place] [address] Social History Tobacco Use Types Packs/Day Years [...] Description 04/02/2025 2:45 PM EDT Procedure Visit [facility] MEDICINE [address] [place] [address] Karli Wells CNM [address] [place] [address] 05/06/2025 2:30 PM EDT Office Visit [address] [address] Corin Doyle MD [address] [place] [address] 07/01/2025 3:30 PM EST Medication Management [address] [address] Sam Peace, PharmD [address] [place] [address] documented as of this encounter Visit Diagnoses Not on filedocumented in this encounter Additional Health Concerns Assessment Noted Time PHQ-9 Depression Total Score: 0 08/14/19 25 3:31 PM EST documented as of this encounter Care Teams Publishing Editor Relationship Specialty Start Date End Date Corin Doyle MD 230 [place] [address] PCP - General Family Medicine 07/18/18 Sam Peace, PharmD 230 [place] [address] Pharmacist Pharmacy 03/06/25 Danay Carmen Survey SupervisorService Control Operator 12/09/23 Danay Carmen Survey SupervisorService Control Operator 08/27/24 documented as of this encounter
--- OUTSIDE RECORDS SUMMARY | 2025-04-01 20:30 | XMS_ITS | Encounter Summary ---
Author Organization [employer] Address [address] [facility] [address] 7t [place] [address] Care Team Providers Care Director Visual Name Role Phone Corin Doyle MD Primary Care Provider [phone] Sam Peace PharmD Unavailable [phone] Reason for Visit * Reason Onset Date Comments chart prep 04/01/2025 Encounter Details Date Type Department Care Team ([facility] st Contact Info) Description 04/01/2025 Telephone [facility] MEDICINE 230 [place] [address] Karli Wells CNM [address] [place] [address] chart prep Social History Tobacco Use Types Packs/Day Years [...] encounter Miscellaneous Notes * Telephone Encounter - Feliciano Luna MA - 04/01/2025 10:24 AM EDT Chart Prep Labs: not applicable Images: not applicable Referrals: not applicable Vaccines due: Covid and Flu Screenings: colonoscopy and pap smear Overdue care gaps: Not applicable documented in this encounter Plan of Treatment Upcoming Encounters Date Type Department Care Team (Late st Contact Info) Description 04/02/2025 2:45 PM EDT Procedure Visit [facility] MEDICINE [address] [place] [address] Karli Wells CNM [address] [place] [address] 05/06/2025 2:30 PM EDT Office Visit [address] [address] Corin Doyle MD [address] [place] [address] 07/01/2025 3:30 PM EST Medication Management [address] [address] Sam Peace, PharmD 230 [place] [address] documented as of this encounter Visit Diagnoses Not on filedocumented in this encounter Additional Health Concerns Assessment Noted Time PHQ-9 Depression Total Score: 0 08/14/19 25 3:31 PM EST documented as of this encounter Care Teams Director Visual Relationship Specialty Start Date End Date Corin Doyle MD 230 [place] [address] PCP - General Family Medicine 07/18/18 Sam Peace, PharmD [address] [place] [address] Pharmacist Pharmacy 03/06/25 Danay Carmen Instrument CalibratorBarrel Brander 12/09/23 Danay Carmen Instrument CalibratorBarrel Brander 08/27/24 documented as of this encounter
--- OUTSIDE RECORDS SUMMARY | 2025-04-01 20:30 | XMS_ITS | Encounter Summary ---
Author Organization [employer] Address [address] [facility] [address] 7t [place] [address] Care Team Providers Care Soil Specialist Name Role Phone Corin Doyle MD Primary Care Provider [phone] Sam Peace PharmD Unavailable [phone] Encounter Details Date Type Department Care Team ([facility] st Contact Info) Description 05/04/[address] [facility] MEDICINE [address] [place], [place] [phone] Corin Doyle MD 230 [place] [address] Primary hypertension (Primary Dx); Acquired hypothyroidism; Hypokalemia; [...] Description 04/02/2025 2:45 PM EDT Procedure Visit [address] [address] Karli Wells CNM [address] [place] [address] 05/06/2025 2:30 PM EDT Office Visit [address] [address] Corin Doyle MD [address] [place] [address] 07/01/2025 3:30 PM EST Medication Management [address] [address] Sam Peace, PharmD [address] [place] [address] documented as of this encounter Procedures Procedure [...] 4:05 PM EST) Creatinine, Urine 312.90 mg/dL [facility] Microalbumin Urine 15.0 mg/L [facility] Microalbum Creatinine Ratio Ur 4.7 <30 ug/mg cr [facility] Comment:Albumin/Creatinine R atio Reference Ranges: Normal: < 30 ug/mg creatinine Microalbuminuria: 30 - 300 ug/mg creatinineClinical Albuminuria: > 300 ug/mg creatinine Urine 08/14/2024 4:05 PM EST 08/14/2024 5:43 PM EST us Corin Doyle MD LAB URINE ORDERABLES Final Resul t [facility] [address] [place] [address] [phone] * Hemoglobin A1c (08/14/2024 4:05 PM EST) Hemoglobin A1c 5.1 <6.0 % [facility] Comment:Hemoglobin A1C Refer ence Range Adults: 4.8 - 6.0 % Non diabetic: < 6.0 % Goal: < 7.0 %Additional Action Suggested: > 8.0 %Note: Hemoglobin A1c results are invalid for patients with abnormal amounts of HbF. Blood transfusions may impact the HbA1c concentration in the patient sample. Estimated Average Glucose 100 mg/dL [facility] Comment:eAG = Estimated ave rage glucose which is %A1C expressed asaverage glucose, using the formula of the X9M-InrazgsWeqkmed Glucose study (ADAG), Diabetes Care, Vol.31,#8,Feb. 2007 Blood Venous blood specimen / Unknown 08/14/2024 4:05 PM EST 08/14/2024 5:33 PM EST us Corin Doyle MD LAB BLOOD ORDERABLES Final Resul t [facility] [address] [place] [address] [phone] * Lipid Panel with Reflex to Direct LDL (08/14/2024 4:05 PM EST) Triglycerides 114 <150 mg/dL [facility] Comment:Desirable Triglyceri de: less than 150 mg/dLBorderline High Triglyceride 150-199 mg/dLHigh Triglyceride: 200-499 mg/dLVery High Triglyceride: greater than or equal to 5OO mg/dL Cholesterol 146 <200 mg/dL [facility] Comment:Desirable Cholestero l: less than 200 mg/dLBorderline High Cholesterol: 200-239 mg/dLHigh Cholesterol: greater than 239 mg/dL LDL Cholesterol Calculated 83 <100 mg/dL [facility] Comment:Desirable LDL: less than 100 mg/dLNear Optimal/Above Optimal LDL: 110- 129 mg/dLBorderline High LDL: 130-159 mg/dLHigh LDL: 160-189 mg/dLVery High LDL: greater than or equal to 190 mg/dL HDL Cholesterol 41 >40 mg/dL [facility] Comment:Desirable HDL: great er than 40 mg/dL Note: This HDL assay may give artificially low results in patients with liver disease. Blood 08/14/2024 4:05 PM EST 08/14/2024 5:33 PM EST us Corin Doyle MD LAB BLOOD ORDERABLES Final Resul t Performing Organization Address City/[facility]/ZIP Co de Phone Number [facility] [address] [place] [phone] * Magnesium (08/14/2024 4:05 PM EST) Magnesium 2.2 1.6 - 2.6 mg/dL [facility] Blood Venous blood specimen / Unknown 08/14/2024 4:05 PM EST 08/14/2024 5:33 PM EST us Corin Doyle MD LAB BLOOD ORDERABLES Final Resul t Performing Organization Address [facility] Co nm Phone Number [facility] [address] [place] [phone] * Uric acid (08/14/2024 4:05 PM EST) Uric Acid 4.5 2.4 - 5.7 mg/dL [facility] Blood Venous blood specimen / Unknown 08/14/2024 4:05 PM EST 08/14/2024 5:33 PM EST us Corin Doyle MD LAB BLOOD ORDERABLES Final Resul t Performing Organization Address [facility] Co de Phone Number [facility] [address] [place] [phone] * TSH with Reflex to Free T4 (08/14/2024 4:05 PM EST) TSH reflex Free T4 3.48 0.32 - 4.0 uIU/mL [facility] Blood 08/14/2024 4:05 PM EST 08/14/2024 5:33 PM EST us Corin Doyle MD LAB BLOOD ORDERABLES Final Resul t Performing Organization Address City/[facility]/ZIP Co de Phone Number [facility] [address] [place] [address] [phone] * (ABNORMAL) Comprehensive Metabolic Panel (08/14/2024 4:05 PM EST) Sodium 143 135 - 145 mmol/L [facility] Potassium 3.1(L) 3.3 - 5.1 mmol/L [facility] Chloride 106 96 - 108 mmol/L [facility] Carbon Dioxide 30(H) 22 - 29 mmol/L [facility] Anion Gap 10(L) 12 - 20 [facility] Urea Nitrogen (BUN) 14 9 - 16 mg/dL [facility] Creatinine, Serum 0.70 0.5 - 1.4 mg/dL [facility] Estimated Glomerular Filt Rate >60 [facility] Comment:Chronic Kidney Disea se: Estimated GFR < 60 mL/min/1.97d0Bavvfg Kidney Disease: Estimated GFR < 15 mL/min/1.73m2 Glucose 72 60 - 115 mg/dL [facility] Calcium 9.2 8.4 - 10.2 mg/dL [facility] Bilirubin, Total 0.2 0.0 - 1.0 mg/dL [facility] Aspartate Amino Transferase 21 5 - 31 U/L [facility] Alanine Aminotransferase 24 0 - 31 U/L [facility] Total Protein 7.7 6.5 - 8.0 g/dL [facility] Albumin Level 4.1 3.5 - 5.0 g/dL [facility] Alkaline Phosphatase 109 39 - 117 U/L [facility] Blood Venous blood specimen / Unknown 08/14/2024 4:05 PM EST 08/14/2024 5:33 PM EST us Corin Doyle MD LAB BLOOD ORDERABLES Final Resul t [facility] [address] [place] [address] [phone] documented in this encounter Visit Diagnoses [...] documented as of this encounter Care Teams Soil Specialist Relationship Specialty Start Date End Date Corin Doyle MD [address] [place] [address] PCP - General Family Medicine 07/18/18 Sam Peace, ConchisD [address] [place] [address] Pharmacist Pharmacy 03/06/25 Danay Carmen Sap Bw ConsultantMattress Inspector 12/09/23 Danay Carmen Sap Bw ConsultantMattress Inspector 08/27/24 documented as of this encounter
--- OUTSIDE RECORDS SUMMARY | 2025-04-01 20:30 | XMS_ITS | Encounter Summary ---
Author Organization [employer] Address [address] [facility] [address] [address] 7t [place] [address] Care Team Providers Care Visitor Services Associate Name Role Phone Corin Doyle MD Primary Care Provider [phone] Sam Peace PharmD Unavailable Reason for Visit * Reason Onset Date Comments Med Refill 12/13/2023 Encounter Details Date Type Department Care Team (Late st Contact Info) Description 12/13/2023 Refill [facility] MEDICINE [address] [place] [address] Corin Doyle MD 230 [place] [address] Social History Tobacco Use Types Packs/Day Years [...] Description 04/02/2025 2:45 PM EDT Procedure Visit [facility] MEDICINE [address] [place] [address] Karli Wells CNM [address] [place] [address] 05/06/2025 2:30 PM EDT Office Visit [address] [address] Corin Doyle MD [address] [place] [address] 07/01/2025 3:30 PM EST Medication Management [address] [address] Sam Peace, PharmD [address] [place] [address] documented as of this encounter Visit Diagnoses Not on filedocumented in this encounter Additional Health Concerns Assessment Noted Time PHQ-9 Depression Total Score: 0 11/24/19 23 3:58 PM EDT documented as of this encounter Care Teams Visitor Services Associate Relationship Specialty Start Date End Date Corin Doyle MD [address] [place] [address] PCP - General Family Medicine 07/18/18 Sam Peace, PharmD [address] [place] [address] Pharmacist Pharmacy 03/06/25 Danay Carmen Bakery SupervisorHead Correction Officer 12/09/23 Danay Carmen Bakery SupervisorHead Correction Officer 08/27/24 documented as of this encounter
--- OUTSIDE RECORDS SUMMARY | 2025-04-01 20:30 | XMS_ITS | Encounter Summary ---
Author Organization [employer] Address [address] [facility] [address] 7t [place] [address] Care Team Providers Care Gleason Operator Name Role Phone Corin Doyle MD Primary Care Provider [phone] Sam Peace PharmD Unavailable [phone] Reason for Visit * Reason Onset Date Comments Med Refill 03/29/2024 Encounter Details Date Type Department Care Team (Late st Contact Info) Description 03/29/2024 Refill [facility] MEDICINE [address] [place] [address] Corin Doyle MD [address] [place] [address] Social History Tobacco Use Types Packs/Day Years [...] Description 04/02/2025 2:45 PM EDT Procedure Visit [facility] [address] [place] [address] Karli Wells CNM [address] [place] [address] 05/06/2025 2:30 PM EDT Office Visit [address] [address] Corin Doyle MD [address] [place] [address] 07/01/2025 3:30 PM EST Medication Management [address] [address] Sam Peace, PharmD [address] [place] [address] documented as of this encounter Visit Diagnoses Not on filedocumented in this encounter Additional Health Concerns Assessment Noted Time PHQ-9 Depression Total Score: 0 11/24/19 23 3:58 PM EDT documented as of this encounter Care Teams Gleason Operator Relationship Specialty Start Date End Date Corin Doyle MD [address] [place] [address] PCP - General Family Medicine 07/18/18 Sam Peace, PharmD [address] [place] [address] Pharmacist Pharmacy 03/06/25 Danay Carmen Geophysical Data TechnicianFirst Helper 12/09/23 Danay Carmen Geophysical Data TechnicianFirst Helper 08/27/24 documented as of this encounter
--- OUTSIDE RECORDS SUMMARY | 2025-04-01 20:30 | XMS_ITS | Encounter Summary ---
Author Organization [employer] Address [address] [place] [address] 7t [place] [address] Care Team Providers Care Nursing Home Social Worker Name Role Phone Corin Doyle MD Primary Care Provider [phone] Sam Peace PharmD Unavailable [phone] Reason for Referral * Consultation (Routine) - Authorized Specialty Diagnoses / Procedures Referred By Contac t Referred To Contact Pharmacy Diagnoses Primary hypertension Corin Doyle MD [address] [place] [address] Phone: tel: fax: Referral ID Status Reason Start Date Expiration Date Visits Requested Visits Authorized [id number] Authorized Consult and Treat 04/01/2025 04/01/2026 6 6 Encounter Details Date Type Department Care Team (Late st Contact Info) Description 04/01/2025 Orders Only [facility] MEDICINE [address] [place] [address] [phone] Corin Doyle MD [address] [place] [phone] Primary hypertension (Primary Dx) Social History Tobacco Use Types Packs/Day Years [...] EDT Procedure Visit [facility] MEDICINE [address] [place] [address] Karli Wells CNM 230 [place] [address] 05/06/2025 2:30 PM EDT Office Visit [facility] MEDICINE [address] [place] [address] Corin Doyle MD [address] [place] [address] 07/01/2025 3:30 PM EST Medication Management [facility] MEDICINE [address] [place] [address] Sam Peace PharmD 230 [place] [address] Scheduled Referrals Name Type Priority Associated Diagnoses Orde r Schedule Referral to Pharmacy CDTM Outpatient Referral Routine Primary hypertension Ordered: 04/01/2025 documented as of this encounter Visit Diagnoses Diagnosis Primary hypertension- Primary Unspecified essential hypertension documented in this encounter Additional Health Concerns Assessment Noted Time PHQ-9 Depression Total Score: 0 08/14/19 3:31 PM EST documented as of this encounter Care Teams Nursing Home Social Worker Relationship Specialty Start Date End Date Corin Doyle MD [address] [place] [address] PCP - General Family Medicine 07/18/18 Sam Peace PharmD [address] [place] [address] Pharmacist Pharmacy 03/06/25 Danay Carmen Program Director Cable TelevisionSignal Worker Helper 12/09/23 Danay Carmen Program Director Cable TelevisionSignal Worker Helper 08/27/24 documented as of this encounter
--- OUTSIDE RECORDS SUMMARY | 2025-04-01 20:30 | XMS_ITS | Encounter Summary ---
Author Organization [employer] Address [address] [facility] 7t [place] [address] Care Team Providers Care Scientist Name Role Phone Corin Doyle MD Primary Care Provider [phone] Sam Peace PharmD Unavailable [phone] Reason for Visit * Reason Onset Date Comments Med Refill 03/20/2025 Encounter Details Date Type Department Care Team (Late st Contact Info) Description 03/20/2025 Refill [facility] MEDICINE 230 [place] [address] Corin Doyle MD 230 [place] [address] Social History Tobacco Use Types Packs/Day Years [...] encounter Miscellaneous Notes * Telephone Encounter - Jaycee Wagner - 03/29/2025 11:15 AM EDT Outgoing call to patient. Patient was informed the insurance for dos is not active. Patient states she is aware and will be reaching out to MH today to inquire. Pt is also aware that if the insuranceis not activated for Tuesday04/01/25 she will be responsible for the visit. documented in this encounter Plan of Treatment Upcoming Encounters Date Type Department Care Team (Late st Contact Info) Description 04/02/2025 2:45 PM EDT Procedure Visit [facility] MEDICINE [address] [place] [address] Karli Wells CNM [address] [place] [address] 05/06/2025 2:30 PM EDT Office Visit [facility] MEDICINE [address] [place] [address] Corin Doyle MD 230 [place] [address] 07/01/2025 3:30 PM EST Medication Management [facility] MEDICINE [address] [place] [address] Sam Peace, PharmD [address] [place] [address] documented as of this encounter Visit Diagnoses Not on filedocumented in this encounter Additional Health Concerns Assessment Noted Time PHQ-9 Depression Total Score: 0 08/14/19 3:31 PM EST documented as of this encounter Care Teams Scientist Relationship Specialty Start Date End Date Corin Doyle MD [address] [place] [address] PCP - General Family Medicine 07/18/18 Sam Peace, PharmD [address] [place] [address] Pharmacist Pharmacy 03/06/25 Danay Carmen Shuttle RepairerShipping And Receiving Weigher 12/09/23 Danay Carmen Shuttle RepairerShipping And Receiving Weigher 08/27/24 documented as of this encounter
--- OUTSIDE RECORDS SUMMARY | 2025-04-01 20:30 | XMS_ITS | Encounter Summary ---
Author Organization [employer] Address [address] [facility] [facility] [address] 7t [place] [address] Care Team Providers Care Slide Fastener Repairer Name Role Phone Corin Doyle MD Primary Care Provider [phone] Sam Peace PharmD Unavailable [phone] Reason for Visit * Reason Onset Date Comments Med Refill 11/01/2023 Encounter Details Date Type Department Care Team (Late st Contact Info) Description 11/01/[address] [facility] 230 [place] [address] Corin Doyle MD 230 [place] [address] Social History Tobacco Use Types Packs/Day Years [...] Description 04/02/2025 2:45 PM EDT Procedure Visit [facility] [address] [place] [address] Karli Wells CNM [address] [place] [address] 05/06/2025 2:30 PM EDT Office Visit [address] [address] Corin Doyle MD [address] [place] [address] 07/01/2025 3:30 PM EST Medication Management [address] [address] Sam Peace, PharmD [address] [place] [address] documented as of this encounter Visit Diagnoses Not on filedocumented in this encounter Additional Health Concerns Assessment Noted Time PHQ-9 Depression Total Score: 0 11/24/19 23 3:58 PM EDT documented as of this encounter Care Teams Slide Fastener Repairer Relationship Specialty Start Date End Date Corin Doyle MD [address] [place] [address] PCP - General Family Medicine 07/18/18 Sam Peace, PharmD [address] [place] [address] Pharmacist Pharmacy 03/06/25 Danay Carmen Draw Fire OperatorCore Loader 12/09/23 Danay Carmen Draw Fire OperatorCore Loader 08/27/24 documented as of this encounter
--- OUTSIDE RECORDS SUMMARY | 2025-04-01 20:30 | XMS_ITS | Encounter Summary ---
Author Organization [employer] Address [address] [facility] [address] 7t [place] [address] Care Team Providers Care Forging Engineer Name Role Phone Corin Doyle MD Primary Care Provider [phone] Sam Peace PharmD Unavailable [phone] Reason for Visit * Reason Onset Date Comments Nurse Triage 05/25/2024 Encounter Details Date Type Department Care Team ([facility] st Contact Info) Description 05/25/2024 Telephone [facility] 230 [place] [address] Corin Doyle MD 230 [place] [address] Nurse Triage Social History Tobacco Use Types [...] theER now. RN advises pt to call [facility] back when she is discharged in [...] 04/02/2025 2:45 PM EDT Procedure Visit [facility] 230 [place] [address] Karli Wells CNM 230 [place] [address] 05/06/2025 2:30 PM EDT Office Visit [facility] [address] [facility] [place] [address] Corin Doyle MD [place] [phone] 07/01/2025 3:30 PM EST Medication Management [facility] [place] [facility] [place] [address] Sam Peace, PharmD [place] [facility] [place] [address] documented as of this encounter Visit Diagnoses Not on filedocumented in this encounter Additional Health Concerns Assessment Noted Time PHQ-9 Depression Total Score: 0 11/24/19 23 3:58 PM EDT documented as of this encounter Care Teams Forging Engineer Relationship Specialty Start Date End Date Corin Doyle MD [place] [facility] [place], [place] [phone] PCP - General Family Medicine 07/18/18 Sam Peace, PharmD [place] [facility] [place], [place] [phone] Pharmacist Pharmacy 03/06/25 Danay Carmen Skein DyerTire Finisher 12/09/23 Danay Carmen Skein DyerTire Finisher 08/27/24 documented as of this encounter
--- OUTSIDE RECORDS SUMMARY | 2025-04-01 20:30 | XMS_ITS | Encounter Summary ---
Author Organization [employer] Address [address] [facility] [address] [facility] [address] 7t [place] [address] Care Team Providers Care Roller Operator Name Role Phone Corin Doyle MD Primary Care Provider [phone] Sam Peace PharmD Unavailable [phone] Encounter Details Date Type Department Care Team ([facility] st Contact Info) Description 04/01/2025 Telephone [facility] 230 [place], [place] [phone] Corin Doyle MD 230 [place] [address] Social History Tobacco Use Types Packs/Day Years [...] 2:45 PM EDT Procedure Visit [facility] [address] [place] [address] Karli Wells CNM [address] [place] [address] 05/06/2025 2:30 PM EDT Office Visit [address] [address] Corin Doyle MD [address] [place] [address] 07/01/2025 3:30 PM EST Medication Management [address] [address] Sam Peace, PharmD [address] [place] [address] documented as of this encounter Visit Diagnoses Not on filedocumented in this encounter Additional Health Concerns Assessment Noted Time PHQ-9 Depression Total Score: 0 08/14/19 25 3:31 PM EST documented as of this encounter Care Teams Roller Operator Relationship Specialty Start Date End Date Corin Doyle MD [address] [place] [address], [place] [address] PCP - General Family Medicine 07/18/18 Sam Peace, PharmD 230 [place] [address] Pharmacist Pharmacy 03/06/25 Danay Carmen Straightedge WorkerAlining Inspector 12/09/23 Danay Carmen Straightedge WorkerAlining Inspector 08/27/24 documented as of this encounter
--- OUTSIDE RECORDS SUMMARY | 2025-04-01 20:30 | XMS_ITS | Encounter Summary ---
Author Organization [employer] Address [address] [facility] [facility] [address] 7t [place] [address] Care Team Providers Care Iron Caster Name Role Phone Corin Doyle MD Primary Care Provider [phone] Sam Peace PharmD Unavailable [phone] Encounter Details Date Type Department Care Team ([facility] Contact Info) Description 03/01/2025 Results Follow-Up [facility]INE 230 [place] [address] Corin Doyle MD 230 [place] [address] Basic Metabolic Panel Social History Tobacco Use Types Packs/Day Years [...] [facility] [address] [place] [address] Karli Wells CNM [address] [place] [address] 05/06/2025 2:30 PM EDT Office Visit [address] [address] Corin Doyle MD [address] [place] [address] 07/01/2025 3:30 PM EST Medication Management [facility] [address] [place] [address] Sam Peace, PharmD [address] [place] [address] documented as of this encounter Visit Diagnoses Not on filedocumented in this encounter Additional Health Concerns Assessment Noted Time PHQ-9 Depression Total Score: 0 08/14/19 25 3:31 PM EST documented as of this encounter Care Teams Iron Caster Relationship Specialty Start Date End Date Corin Doyle MD 230 [place] [address] PCP - General Family Medicine 07/18/18 Sam Peace, PharmD 230 [place] [address] Pharmacist Pharmacy 03/06/25 Danay Carmen Brake Drum MolderPaper Inspector 12/09/23 Danay Carmen Brake Drum MolderPaper Inspector 08/27/24 documented as of this encounter
--- OUTSIDE RECORDS SUMMARY | 2025-04-01 20:30 | XMS_ITS | Encounter Summary ---
Author Organization [employer] Address [address] [facility] 7t [place] [address] Care Team Providers Care Blindstitch Lining Feller Name Role Phone Corin Doyle MD Primary Care Provider Sam Peace PharmD Unavailable [phone] Reason for Visit * Reason Comments Med Change Request Encounter Details Date Type Department Care Team ([facility] st Contact Info) Description 01/08/2024 Refill [facility] 230 [place], [place] [phone] Corin Doyle MD 230 [place], [place] [phone] Social History Tobacco Use Types Packs/Day Years [...] Description 04/02/2025 2:45 PM EDT Procedure Visit [facility] [address] [place] [address] Karli Wells CNM [address] [place] [address] 05/06/2025 2:30 PM EDT Office Visit [address] [address] Corin Doyle MD [address] [place] [address] 07/01/2025 3:30 PM EST Medication Management [address] [address] Sam Peace PharmD [address] [place] [address] documented as of this encounter Visit Diagnoses Not on filedocumented in this encounter Additional Health Concerns Assessment Noted Time PHQ-9 Depression Total Score: 0 11/24/19 23 3:58 PM EDT documented as of this encounter Care Teams Blindstitch Lining Feller Relationship Specialty Start Date End Date Corin Doyle MD [address] [place] [address] PCP - General Family Medicine 07/18/18 Sam Peace, PharmD [address] [place] [address] Pharmacist Pharmacy 03/06/25 Danay Carmen Financial CoachLogistic Manager 12/09/23 Danay Carmen Financial CoachLogistic Manager 08/27/24 documented as of this encounter
--- OUTSIDE RECORDS SUMMARY | 2025-04-01 20:30 | XMS_ITS | Encounter Summary ---
Author Organization [employer] Address [address] [facility] [address] [address] 7t [place] [address] Care Team Providers Care Product Examiner Name Role Phone Corin Doyle MD Primary Care Provider [phone] Sam Peace PharmD Unavailable [phone] Reason for Visit * Reason Onset Date Comments Med Refill 03/23/2024 Encounter Details Date Type Department Care Team (Late st Contact Info) Description 03/23/2024 Refill [facility] 230 [place] [address] Corin Doyle MD 230 [place] [address] Social History Tobacco Use Types Packs/Day Years [...] Description 04/02/2025 2:45 PM EDT Procedure Visit [facility] [address] [place] [address] Karli Wells CNM [address] [place] [address] 05/06/2025 2:30 PM EDT Office Visit [address] [address] Corin Doyle MD [address] [place] [address] 07/01/2025 3:30 PM EST Medication Management [address] [address] Sam Peace, PharmD [address] [place] [address] documented as of this encounter Visit Diagnoses Not on filedocumented in this encounter Additional Health Concerns Assessment Noted Time PHQ-9 Depression Total Score: 0 11/24/19 23 3:58 PM EDT documented as of this encounter Care Teams Product Examiner Relationship Specialty Start Date End Date Corin Doyle MD [address] [place] [address] PCP - General Family Medicine 07/18/18 Sam Peace, PharmD [address] [place] [address] Pharmacist Pharmacy 03/06/25 Danay Carmen Car LubricatorInstrument Maker 12/09/23 Danay Carmen Car LubricatorInstrument Maker 08/27/24 documented as of this encounter
--- OUTSIDE RECORDS SUMMARY | 2025-04-01 20:30 | XMS_ITS | Encounter Summary ---
Author Organization [employer] Address [address] [place] [address] 7t [place] [address] Care Team Providers Care Train Caller Name Role Phone Corin Doyle MD Primary Care Provider Sam Peace PharmD Unavailable [phone] Reason for Referral * Imaging (Routine) - Closed Specialty Diagnoses / Procedures Referred By Contac t Referred To Contact Radiology Diagnoses Breast cancer screening by mammogram Procedures BI Mammogram Screening Tomosynthesis Bilateral Corin Doyle MD [address] [place] [address] Phone: tel: fax: [address] Phone: tel: fax: Referral ID Status Reason Start Date Expiration Date Visits Re quested Visits Authorized [id number] Closed 11/01/2023 10/31/2024 1 1 * Consultation (Routine) - Canceled Specialty Diagnoses / Procedures Referred By Contac t Referred To Contact Gastroenterology Diagnoses Colon cancer screening Corin Doyle MD 230 [place] [address] Phone: tel: fax: Referral ID Status Reason Start Date Expiration Date Visits Requested Visits Authorized [id number] Canceled Specialty Services Required 11/01/2023 10/31/2024 1 1 * Imaging (Routine) - Closed Specialty Diagnoses / Procedures Referred By Contantwon t Referred To Contact Radiology Diagnoses Elevated liver enzymes Procedures US Abdomen Comp w elastography Corin Doyle MD [address] [place] [address] Phone: tel: fax: [facility] [address] [place] [address] Phone: tel: fax: Referral ID Status Reason Start Date Expiration Date Visits Re quested Visits Authorized [id number] Closed 11/01/2023 10/31/2024 1 1 Encounter Details Date Type Department Care Team (Late st Contact Info) Description 11/01/2023 Orders Only [facility] MED[facility]INE [address] [place] [address] Corin Doyle MD [address] [place] [address] Elevated liver enzymes (Primary Dx); Breast cancer [...] Description 04/02/2025 2:45 PM EDT Procedure Visit [facility] [address] [place] [address] Karli Wells CNM [address] [place] [address] 05/06/2025 2:30 PM EDT Office Visit [address] [address] Corin Doyle MD [address] [place] [address] 07/01/2025 3:30 PM EST Medication Management [address] [address] Sam Peace, PharmD [address] [place] [address] Scheduled Referrals Name Type Priority Associated Diagnoses [...] PM EDT Narrative 12/30/2023 5:50 AM EDT [facility] [place] [address] Mammography Report Signed Patient: Janelle León MR#: [id number] : 1975 Acct:[id number] Age/Sex: 48 / F ADM Date: 11/29/23 Loc: [facility]I Attending Dr: Corin Doyle MD Ordering Physician: Corin Doyle MD Results: 0Incomple te: Needs Additional Imaging Evaluation Date of Service: 11/29/23 Follow Up: Additional Imagi ng Procedure(s): MM tomosynthesis screening BI Accession Number(s): [id number] cc: Corin Doyle MD EXAMINATION: MM SCREENING [...] in OV> 12/30/23 0546 DD/ 1557 TD/TT: Application Packager: Procedure Note Donotuseinterpreter, Image - 12/30/2023 [facility] [address] [place] [address] Mammography Report Signed Patient: Janelle León GMR#: [id number] : 1975Acct:[id number] Age/Sex: 48 / FADM Date: 11/29/23 Loc: HARI Attending Dr: Corin Doyle MD Ordering Physician: Corin Doyle MDResults: 0Incomple te: Needs Additional Imaging Evaluation Date of Service: 11/29/23Follow Up: Additional Imagi ng Procedure(s): MM tomosynthesis screening BI Accession Number(s): [id number] cc: Corin Doyle MD EXAMINATION: MM SCREENING [...] in OV> 12/30/23 0546 DD/ 1557 TD/TT: Application Packager: us Corin Doyle MD IMG BI PROCEDURES Edited Result - Final * US Abdomen Comp w elastography (11/22/2023 11:50 AM EDT) Anatomical Region Laterality Modality Abdomen Ultrasound 11/22/2023 11:5 0 AM EDT Narrative 11/28/2023 5:18 PM EDT [address] [address] Ultrasound Report Signed Patient: Janelle León MR#: [id number] : 1975 Acct:[id number] Age/Sex: 48 / F ADM Date: 11/22/23 Loc: HO.US Attending Dr: Corin Doyle MD Ordering Physician: Corin Doyle MD Date of Service: 11/22/23 Procedure(s): US abdomen comp w elastography Accession Number(s): [id number] cc: Corin Doyle MD EXAMINATION: US COMPLETE [...] Thomas MD Signed By: <Electronically signed by Lima Thomas MD in OV> 11/28/23 1714 DD/ 1150 TD/TT: Application Packager: KIMI Procedure Note Donotuseinterpreter, Image - 11/28/2023 [place] [address] Ultrasound Report Signed Patient: Janelle León GMR#: [id number] : 1975Acct:[id number] Age/Sex: 48 / FADM Date: 11/22/23 Loc: HO.US Attending Dr: Corin Doyle MD Ordering Physician: Corin Doyle MD Date of Service: 11/22/23 Procedure(s): US abdomen comp w elastography Accession Number(s): [id number] cc: Corin Doyle MD EXAMINATION: US COMPLETE [...] in OV> 11/28/23 1714 DD/ 1150 TD/TT: Application Packager: KIMI Corin Doyle MD IMG US PROCEDURES Final Result * (ABNORMAL) Potassium (11/11/2023 8:41 AM EDT) Pathologist [facility] Potassium 3.2(L) 3.3 - 5.1 mmol/L [facility] Blood Venous blood specimen / Unknown 11/11/2023 8:41 AM EDT 11/11/2023 11:40 AM EDT Corin Doyle MD LAB BLOOD ORDERABLES Final Resul t [facility] [address] [place] [address] [phone] * Hepatitis A,B,C Profile (11/11/2023 8:41 AM EDT) Hepatitis A IgM Nonreactive Nonreactive [facility] Comment:IgM antibodies to GUZMÁN V not detected; does not exclude earlyacute or recovered HAV infection. ~Hepatitis B Surface Antibody REACTIVE Nonreactive [facility] Comment:REACTIVE: > 11.99 mI U/mL Hepatitis B Core Antibody Nonreactive Nonreactive [facility] Hepatitis C Antibody Nonreactive Nonreactive [facility] Comment:Antibodies to HCV no t detected; does not exclude early acuteHCV infection. Hepatitis B Surface Ag Negative Negative [facility] Blood Venous blood specimen / Unknown 11/11/2023 8:41 AM EDT 11/11/2023 11:40 AM EDT us Corin Doyle MD LAB BLOOD ORDERABLES Final Resul t [facility] [address] [place] [address] [phone] * (ABNORMAL) CBC auto differential (11/11/2023 8:41 AM EDT) White Blood Count 6.6 4.8 - 10.8 X10*3/uL [facility] Red Blood Count 5.08 4.20 - 5.50 X10*6/uL [facility] Hemoglobin 13.4 12.0 - 16.0 g/dl [facility] Hematocrit 42.1 37.0 - 47.0 % [facility] Mean Corpuscular Volume 82.9 80.0 - 98.0 fL [facility] Mean Corpuscular Hemoglobin 26.4(L) 27.0 - 33.0 pg [facility] Mean Corpuscular HGB Conc 31.8 31.0 - 35.0 g/dl [facility] Red Cell Distribution Width 14.4 11.0 - 16.0 % [facility] Platelet Count 267 160 - 400 X10*3/uL [facility] Mean Platelet Volume 11.0 9.4 - 12.3 fL [facility] Neutrophils Percent Auto 59.9 45 - 73 % [facility] Imm Gran Pct Auto 0.6(H) 0.0 - 0.4 % [facility] Lymphocytes Percent Auto 26.2 20 - 40 % [facility] Monocytes Percent Auto 8.4 2 - 11 % [facility] Eosinophils Percent Auto 3.8 0 - 4 % [facility] Basophils Percent Auto 1.1 0 - 2 % [facility] NRBC Pct Auto 0.0 0.0 - 0.2 /100WBC [facility] Neutrophils Absolute Auto 3.9 2.0 - 8.3 x10*3/uL [facility] Imm Gran Abs Auto 0.04(H) 0.00 - 0.03 X10*3/uL [facility] Lymphocytes Absolute Auto 1.7 1.2 - 4.9 X10*3/uL [facility] Monocytes Absolute Auto 0.6 0.1 - 1.2 X10*3/uL [facility] Eosinophils Absolute Auto 0.3 0.0 - 0.4 X10*3/uL [facility] Basophils Absolute Auto 0.1 0.0 - 0.2 X10*3/uL [facility] NRBC Abs Auto 0.000 0.0 - 0.012 X10*3/uL [facility] Blood Venous blood specimen / Unknown 11/11/2023 8:41 AM EDT 11/11/2023 11:40 AM EDT us Corin Doyle MD LAB BLOOD ORDERABLES Final Resul t [facility] [address] [place] [address] [phone] documented in this encounter Visit Diagnoses Diagnosis Elevated liver enzymes- Primary Other nonspecific abnormal serum enzyme levels Breast cancer screening by mammogram Colon cancer screening Special screening for malignant neoplasms, colon Hypokalemia Hypopotassemia documented in this encounter Additional Health Concerns Assessment Noted Time PHQ-9 Depression Total Score: 0 11/24/19 23 3:58 PM EDT documented as of this encounter Care Teams Train Caller Relationship Specialty Start Date End Date Corin Doyle MD [address] [place] [address] PCP - General Family Medicine 07/18/18 Sam Peace, PharmD [address] [place] [address] Pharmacist Pharmacy 03/06/25 Danay Carmen Regional Safety ManagerLaboratory Operations Coordinator 12/09/23 Danay Carmen Regional Safety ManagerLaboratory Operations Coordinator 08/27/24 documented as of this encounter
--- OUTSIDE RECORDS SUMMARY | 2025-04-01 20:30 | XMS_ITS | Encounter Summary ---
Author Organization [employer] Address [address] [facility] 7t [place] [address] Care Team Providers Care Production Machine Shop Supervisor Name Role Phone Corin Doyle MD Primary Care Provider [phone] Sam Peace PharmD Unavailable [phone] Reason for Visit * Reason Onset Date Comments Med Refill 03/13/2025 Encounter Details Date Type Department Care Team (Late st Contact Info) Description 03/13/2025 Refill [facility] 230 [place] [address] Corin Doyle MD [address] [place] [address] Social History Tobacco Use Types Packs/Day Years [...] Description 04/02/2025 2:45 PM EDT Procedure Visit [facility] MEDICINE [address] [place] [address] Karli Wells CNM [address] [place] [address] 05/06/2025 2:30 PM EDT Office Visit [address] [address] Corin Doyle MD [address] [place] [address] 07/01/2025 3:30 PM EST Medication Management [address] [address] Sam Peace, ConchisD [address] [place] [address] documented as of this encounter Visit Diagnoses Not on filedocumented in this encounter Additional Health Concerns Assessment Noted Time PHQ-9 Depression Total Score: 0 08/14/19 25 3:31 PM EST documented as of this encounter Care Teams Production Machine Shop Supervisor Relationship Specialty Start Date End Date Corin Doyle MD [address] [place] [address] PCP - General Family Medicine 07/18/18 Sam Peace, PharmD [address] [place] [address] Pharmacist Pharmacy 03/06/25 Danay Carmen Patch FinisherNascar Pit Crew Person 12/09/23 Danay Carmen Patch FinisherNascar Pit Crew Person 08/27/24 documented as of this encounter
--- OUTSIDE RECORDS SUMMARY | 2025-04-01 20:30 | XMS_ITS | Encounter Summary ---
Author Organization [employer] Address [address] [facility] [address] 7t [place] [address] Care Team Providers Care Tool Pusher Name Role Phone Corin Doyle MD Primary Care Provider [phone] Sam Peace PharmD Unavailable [phone] Encounter Details Date Type Department Care Team ([facility] st Contact Info) Description 08/17/2024 Orders Only [facility] MEDICINE 230 [place], [place] [phone] Corin Doyle MD 230 [place] [address] Social History Tobacco Use Types Packs/Day Years [...] 2:45 PM EDT Procedure Visit [facility] MEDICINE [address] [place] [address] Karli Wells CNM [address] [place] [address] 05/06/2025 2:30 PM EDT Office Visit [address] [address] Corin Doyle MD [address] [place] [address] 07/01/2025 3:30 PM EST Medication Management [address] [address] Sam Peace, PharmD [address] [place] [address] documented as of this encounter Visit Diagnoses Not on filedocumented in this encounter Additional Health Concerns Assessment Noted Time PHQ-9 Depression Total Score: 0 08/14/19 25 3:31 PM EST documented as of this encounter Care Teams Tool Pusher Relationship Specialty Start Date End Date Corin Doyle MD [address] [place] [address] PCP - General Family Medicine 07/18/18 Sam Peace, PharmD [address] [place] [address] Pharmacist Pharmacy 03/06/25 Danay Carmen Management SpecialistRibbon Hanking Machine Operator 12/09/23 Danay Carmen Management SpecialistRibbon Hanking Machine Operator 08/27/24 documented as of this encounter
--- OUTSIDE RECORDS SUMMARY | 2025-04-01 20:30 | XMS_ITS | Encounter Summary ---
Author Organization [employer] Address [address] [facility] [address] 7t [place] [address] Care Team Providers Care Rental Boats Caretaker Name Role Phone Corin Doyle MD Primary Care Provider [phone] Sam Peace PharmD Unavailable [phone] Encounter Details Date Type Department Care Team ([facility] st Contact Info) Description 03/01/2025 Orders Only [facility] [address] [place], [place] [phone] Corin Doyle MD 230 [place] [address] Hypokalemia (Primary Dx) Social History Tobacco Use Types [...] Description 04/02/2025 2:45 PM EDT Procedure Visit [facility] [address] [place] [address] Karli Wells CNM 230 [place] [address] 05/06/2025 2:30 PM EDT Office Visit [address] [address] Corin Doyle MD 230 [place] [address] 07/01/2025 3:30 PM EST Medication Management [address] [address] Sam Peace, ConchisD 230 [place] [address] documented as of this encounter Procedures Procedure Name Priority Date/Time Associated Diagnosis Comments MAGNESIUM Routine 04/01/2025 3:26 PM EDT Hypokalemia BASIC METABOLIC PANEL Routine 04/01/2025 3:26 PM EDT Hypokalemia documented in this encounter Results * Magnesium (04/01/2025 3:26 PM EDT) Magnesium 2.1 1.6 - 2.6 mg/dL [facility] Blood Venous blood specimen / Unknown 04/01/2025 3:26 PM EDT 04/01/2025 4:08 PM EDT Corin Doyle MD LAB BLOOD ORDERABLES Final Resul t Performing Organization Address [facility] Co de Phone Number [facility] [address] [place] [address] [phone] * (ABNORMAL) Basic Metabolic Panel (04/01/2025 3:26 PM EDT) Sodium 144 135 - 145 mmol/L [facility] Potassium 3.6 3.3 - 5.1 mmol/L [facility] Chloride 109(H) 96 - 108 mmol/L [facility] Carbon Dioxide 29 22 - 29 mmol/L [facility] Anion Gap 10(L) 12 - 20 [facility] Urea Nitrogen (BUN) 15 9 - 16 mg/dL [facility] Creatinine, Serum 0.81 0.5 - 1.4 mg/dL [facility] Estimated Glomerular Filt Rate >60 [facility] Comment:Chronic Kidney Disea se: Estimated GFR < 60 mL/min/1.40g3Wssybx Kidney Disease: Estimated GFR < 15 mL/min/1.73m2 Glucose 87 60 - 115 mg/dL [facility] Calcium 8.9 8.4 - 10.2 mg/dL [facility] Blood Venous blood specimen / Unknown 04/01/2025 3:26 PM EDT 04/01/2025 4:08 PM EDT Corin Doyle MD LAB BLOOD ORDERABLES Final Resul t Performing Organization Address City/[facility]/ZIP Co de Phone Number [facility] [address] [place] [phone] documented in this encounter Visit Diagnoses Diagnosis Hypokalemia- Primary Hypopotassemia documented in this encounter Additional Health Concerns Assessment Noted Time PHQ-9 Depression Total Score: 0 08/14/19 3:31 PM EST documented as of this encounter Care Teams Rental Boats Caretaker Relationship Specialty Start Date End Date Corin Doyle MD [address] [place] [address] PCP - General Family Medicine 07/18/18 Sam Peace, PharmD [address] [place] [address] Pharmacist Pharmacy 03/06/25 Danay Carmen Manager Of MaintenanceRural Electrification Engineer 12/09/23 Danay Carmen Manager Of MaintenanceRural Electrification Engineer 08/27/24 documented as of this encounter
--- OUTSIDE RECORDS SUMMARY | 2025-04-01 20:30 | XMS_ITS | Encounter Summary ---
Author Organization [employer] Address [address] [facility] [address] 7t [place] [address] Care Team Providers Care Home Economist Name Role Phone Corin Doyle MD Primary Care Provider [phone] Sam Peace PharmD Unavailable [phone] Reason for Visit * Reason Onset Date Comments Med Refill 12/03/2024 Encounter Details Date Type Department Care Team (Late st Contact Info) Description 12/03/2024 Refill [facility] MEDICINE 230 [place] [address] Eddie Guerrero MD 230 [place] [address] Moderate persistent asthma with acute exacerbation Social [...] Description 04/02/2025 2:45 PM EDT Procedure Visit [facility] [address] [place] [address] Karli Wells, CNJessica [address] [place] [address] 05/06/2025 2:30 PM EDT Office Visit [address] [address] Corin Doyle MD [address] [place] [address] 07/01/2025 3:30 PM EST Medication Management [address] [address] Sam Peace, PharmD [address] [place] [address] documented as of this encounter Visit Diagnoses Diagnosis Moderate persistent asthma with acute exacerbation documented in this encounter Additional Health Concerns Assessment Noted Time PHQ-9 Depression Total Score: 0 08/14/19 25 3:31 PM EST documented as of this encounter Care Teams Home Economist Relationship Specialty Start Date End Date Sakurai, Corin, MD 230 [place], [place] [phone] PCP - General Family Medicine 07/18/18 Sam Peace, PharmD 230 [place] [address] Pharmacist Pharmacy 03/06/25 Danay Carmen Stator TesterPaleology Teacher 12/09/23 Danay Carmen Stator TesterPaleology Teacher 08/27/24 documented as of this encounter
--- OUTSIDE RECORDS SUMMARY | 2025-04-01 20:30 | XMS_ITS | Encounter Summary ---
Author Organization [employer] Address [address] [place] [address] 7t [place] [address] Care Team Providers Care Shift Superintendent Caustic Cresylate Name Role Phone Corin Doyle MD Primary Care Provider [phone] Sam Peace PharmD Unavailable [phone] Encounter Details Date Type Department Care Team (Latest Contact Info) Description 11/25/2021 Abstract [facility] CONVERSIONS Dental, Provider, DDS Social History [...] Description 04/02/2025 2:45 PM EDT Procedure Visit [facility] MEDICINE [address] [place] [address] Karli Wells CNM [address] [place] [address] 05/06/2025 2:30 PM EDT Office Visit [address] [phone] Corin Doyle MD [address] [place] [address] 07/01/2025 3:30 PM EST Medication Management [address] [address] Sam Peace, PharmD 230 [place] [address] documented as of this encounter Visit Diagnoses Not on filedocumented in this encounter Care Teams Shift Superintendent Caustic Cresylate Relationship Specialty Start Date End Date Corin Doyle MD 230 [place] [address] PCP - General Family Medicine 07/18/18 Sam Peace, PharmD 230 [place], [place] [phone] Pharmacist Pharmacy 03/06/25 Danay Carmen Table Games DealerLaborer Egg Producing Farm 12/09/23 Danay Carmen Table Games DealerLaborer Egg Producing Farm 08/27/24 documented as of this encounter
--- OUTSIDE RECORDS SUMMARY | 2025-04-01 20:30 | XMS_ITS | Encounter Summary ---
Author Organization [employer] Address [address] [facility] [address] 7t [place] [address] Care Team Providers Care Cds Sales Advisor Name Role Phone Corin Doyle MD Primary Care Provider [phone] Sam Peace PharmD Unavailable [phone] Reason for Visit * Reason Onset Date Comments Med Refill 04/02/2024 Encounter Details Date Type Department Care Team (Late st Contact Info) Description 04/02/2024 Refill [facility] 230 [place] [address] Corin Doyle MD 230 [place] [address] Social History Tobacco Use Types Packs/Day Years [...] Description 04/02/2025 2:45 PM EDT Procedure Visit [facility] [address] [place] [address] Karli Wells CNM [address] [place] [address] 05/06/2025 2:30 PM EDT Office Visit [address] [address] Corin Doyle MD [address] [place] [address] 07/01/2025 3:30 PM EST Medication Management [address] [address] Sam Peace, PharmD [address] [place] [address] documented as of this encounter Visit Diagnoses Not on filedocumented in this encounter Additional Health Concerns Assessment Noted Time PHQ-9 Depression Total Score: 0 11/24/19 23 3:58 PM EDT documented as of this encounter Care Teams Cds Sales Advisor Relationship Specialty Start Date End Date Corin Doyle MD [address] [place] [address] PCP - General Family Medicine 07/18/18 Sam Peace, PharmD [address] [place] [address] Pharmacist Pharmacy 03/06/25 Danay Carmen Teradata DeveloperTransportation Maintenance Supervisor 12/09/23 Danay Carmen Teradata DeveloperTransportation Maintenance Supervisor 08/27/24 documented as of this encounter
--- OUTSIDE RECORDS SUMMARY | 2025-04-01 20:30 | XMS_ITS | Encounter Summary ---
Author Organization [employer] Address [address] [facility] [address] 7t [place] [address] Care Team Providers Care Applications Development Consultant Name Role Phone Corin Doyle MD Primary Care Provider [phone] Sam Peace PharmD Unavailable [phone] Reason for Visit * Reason Comments Med Refill Encounter Details Date Type Department Care Team ([facility] st Contact Info) Description 11/07/2023 Refill [facility] 230 [place], [place] [phone] Eddie Guerrero MD 230 [place], [place] [phone] Social History Tobacco Use Types Packs/Day Years [...] Description 04/02/2025 2:45 PM EDT Procedure Visit [facility] MED[facility]INE [address] [place] [address] Karli Wells CNM [address] [place] [address] 05/06/2025 2:30 PM EDT Office Visit [address] [address] Corin Doyle MD [address] [place] [address] 07/01/2025 3:30 PM EST Medication Management [address] [address] Sam Peace PharmD [address] [place] [address] documented as of this encounter Visit Diagnoses Not on filedocumented in this encounter Additional Health Concerns Assessment Noted Time PHQ-9 Depression Total Score: 0 11/24/19 23 3:58 PM EDT documented as of this encounter Care Teams Applications Development Consultant Relationship Specialty Start Date End Date Corin Doyle MD [address] [place] [address] PCP - General Family Medicine 07/18/18 Sam Peace, PharmD [address] [place] [address] Pharmacist Pharmacy 03/06/25 Danay Carmen Paint StockmanAssistant Reading Teacher 12/09/23 Danay Carmen Paint StockmanAssistant Reading Teacher 08/27/24 documented as of this encounter
--- OUTSIDE RECORDS SUMMARY | 2025-04-01 20:30 | XMS_ITS | Encounter Summary ---
Author Organization [employer] Address [address] [facility] [address] 7t [place] [address] Care Team Providers Care Coal Mine Inspector Name Role Phone Corin Doyle MD Primary Care Provider [phone] Sam Peace PharmD Unavailable [phone] Reason for Visit * Reason Onset Date Comments Referral 10/18/2023 Encounter Details Date Type Department Care Team ([facility] st Contact Info) Description 10/18/2023 Telephone [facility] 230 [place] [address] Corin Doyle MD 230 [place] [address] Referral Social History Tobacco Use Types Packs/Day [...] - 10/18/2023 3:42 PM EDT Tc from [facility] with [facility] calling in regards referral for cardiology, stated pt discussed referral on last appt with PCP on 08/08 and the referral is to control high blood pressure. documented in this encounter Plan of Treatment Upcoming Encounters Date Type Department Care Team (Late st Contact Info) Description 04/02/2025 2:45 PM EDT Procedure Visit [facility] [address] [place] [address] Karli Wells CNM 230 [place] [address] 05/06/2025 2:30 PM EDT Office Visit [facility] [address] [place] [address] Corin Doyle MD 230 [place] [address] 07/01/2025 3:30 PM EST Medication Management [facility] [address] [place] [address] Sam Peace, PharmD [address] [place] [address] documented as of this encounter Visit Diagnoses Not on filedocumented in this encounter Additional Health Concerns Assessment Noted Time PHQ-9 Depression Total Score: 0 11/24/19 23 3:58 PM EDT documented as of this encounter Care Teams Coal Mine Inspector Relationship Specialty Start Date End Date Corin Doyle MD 230 [place] [address] PCP - General Family Medicine 07/18/18 Sam Peace, ConchisD 230 [place] [address] Pharmacist Pharmacy 03/06/25 Danay Carmen Critical Care CnsPneumatic Tester Mechanic 12/09/23 Danay Carmen Critical Care CnsPneumatic Tester Mechanic 08/27/24 documented as of this encounter
--- OUTSIDE RECORDS SUMMARY | 2025-04-01 20:30 | XMS_ITS | Encounter Summary ---
Author Organization [employer] Address [address] [facility] [address] 7t [place] [address] Care Team Providers Care Sped Teacher Name Role Phone Corin Doyle MD Primary Care Provider [phone] Sam Peace PharmD Unavailable [phone] Reason for Visit * Reason Onset Date Comments Med Refill 11/14/2023 Encounter Details Date Type Department Care Team (Late st Contact Info) Description 11/14/2023 Refill [facility] MED[facility]INE 230 [place] [address] Corin Doyle MD 230 [place] [address] Rash Social History Tobacco Use Types Packs/Day [...] 2:45 PM EDT Procedure Visit [facility] MEDICINE [address] [place] [address] Karli Wells CNM [address] [place] [address] 05/06/2025 2:30 PM EDT Office Visit [address] [address] Corin Doyle MD [address] [place] [address] 07/01/2025 3:30 PM EST Medication Management [address] [address] Sam Peace, PharmD [address] [place] [address] documented as of this encounter Visit Diagnoses Diagnosis Rash Rash and other nonspecific skin eruption documented in this encounter Additional Health Concerns Assessment Noted Time PHQ-9 Depression Total Score: 0 11/24/19 23 3:58 PM EDT documented as of this encounter Care Teams Sped Teacher Relationship Specialty Start Date End Date Corin Doyle MD [address] [place] [address] PCP - General Family Medicine 07/18/18 Sam Peace, PharmD [address] [place] [address] Pharmacist Pharmacy 03/06/25 Danay Carmen Supervisor Core ShopGriddle Attendant 12/09/23 Danay Carmen Supervisor Core ShopGriddle Attendant 08/27/24 documented as of this encounter
--- OUTSIDE RECORDS SUMMARY | 2025-04-01 20:30 | XMS_ITS | Encounter Summary ---
Author Organization [employer] Address [address] [facility] [address] 7t [place] [address] Care Team Providers Care Back Tender Pulp Drier Name Role Phone Corin Doyle MD Primary Care Provider [phone] Sam Peace PharmD Unavailable [phone] Reason for Visit * Reason Onset Date Comments Med Refill 11/02/2023 Encounter Details Date Type Department Care Team (Late st Contact Info) Description 11/02/[address] [facility] MEDICINE 230 [place] [address] Corin Doyle MD 230 [place] [address] Social History Tobacco Use Types Packs/Day Years [...] instructions back to me. Also sent on [employer] so pt has them written out since she is active on [employer] scheduled for 11/15 with [facility] nurses for blood pressure check. Pt verbalized understanding and denied having any further questions or concerns at this time. * Telephone Encounter - Saranya Burt RN - 11/02/2023 11:00 AM EDT ----- Message from Corin Doyle MD sent at 11/01/2023 6:14 PM EDT ----- Notified by on-call provider on 11/01/23 and called the patient. Our plan is to replace with KCl 20mEq daily for 1 week, recheck lab, halve chlorthalidone, and arrange BP check. Could you be able toarrange BP check in 2 wks? If BP is elevated both home and office, will increase losartan to 100 mgdaily (currently 75 mg). Thank you documented in this encounter Plan of Treatment Upcoming Encounters Date Type Department Care Team (Late st Contact Info) Description 04/02/2025 2:45 PM EDT Procedure Visit [facility] MEDICINE 230 [place] [address] Karli Wells CNM 230 [place] [address] 05/06/2025 2:30 PM EDT Office Visit [facility] MED[facility]INE 230 [place] [address] Corin Doyle MD 230 [place] [address] 07/01/2025 3:30 PM EST Medication Management [facility] MED[facility]INE 230 [place] [address] Sam Peace, PharmD [address] [place] [address] documented as of this encounter Visit Diagnoses Not on filedocumented in this encounter Additional Health Concerns Assessment Noted Time PHQ-9 Depression Total Score: 0 11/24/19 23 3:58 PM EDT documented as of this encounter Care Teams Back Tender Pulp Drier Relationship Specialty Start Date End Date Corin Doyle MD [address] [place] [address] PCP - General Family Medicine 07/18/18 Sam Peace, PharmD [address] [place] [address] Pharmacist Pharmacy 03/06/25 Danay Carmen Quality Assurance Supervisor [employer] Connector 12/09/23 Danay Carmen Quality Assurance Supervisor [employer] Connector 08/27/24 documented as of this encounter
--- OUTSIDE RECORDS SUMMARY | 2025-04-01 20:30 | XMS_ITS | Encounter Summary ---
Author Organization [employer] Address [address] [facility] [address] 7t [place] [address] Care Team Providers Care Hand Worker Name Role Phone Corin Doyle MD Primary Care Provider [phone] Sam Peace PharmD Unavailable [phone] Encounter Details Date Type Department Care Team ([facility] st Contact Info) Description 08/16/[address] [facility] 230 [place], [place] [phone] Eddie Guerrero MD 230 [place], [place] [phone] Social History Tobacco Use Types Packs/Day Years [...] 04/02/2025 2:45 PM EDT Procedure Visit [facility] [address] [place] [address] Karli Wells CNM [address] [place] [address] 05/06/2025 2:30 PM EDT Office Visit [address] [address] Corin Doyle MD [address] [place] [address] 07/01/2025 3:30 PM EST Medication Management [address] [address] Sam Peace, Yulissa [address] [place] [address] documented as of this encounter Visit Diagnoses Not on filedocumented in this encounter Additional Health Concerns Assessment Noted Time PHQ-9 Depression Total Score: 0 11/24/19 23 3:58 PM EDT documented as of this encounter Care Teams Hand Worker Relationship Specialty Start Date End Date Corin Doyle MD [address] [place] [address] PCP - General Family Medicine 07/18/18 Sam Peace, PharmD [address] [place] [address] Pharmacist Pharmacy 03/06/25 Danay Carmen Lens EngraverMaintenance Truck Driver 12/09/23 Danay Carmen Lens EngraverMaintenance Truck Driver 08/27/24 documented as of this encounter
--- OUTSIDE RECORDS SUMMARY | 2025-04-01 20:30 | XMS_ITS | Encounter Summary ---
Author Organization [employer] Address [address] [facility] [address] 7t [place] [address] Care Team Providers Care Bowling Ball Mold Assembler Name Role Phone Corin Doyle MD Primary Care Provider [phone] Sam Peace PharmD Unavailable [phone] Reason for Visit * Reason Onset Date Comments Med Refill 01/25/2024 Encounter Details Date Type Department Care Team (Late st Contact Info) Description 01/25/2024 Refill [facility] 230 [place] [address] Corin Doyle MD 230 [place] [address] Social History Tobacco Use Types Packs/Day Years [...] 2:45 PM EDT Procedure Visit [facility] [address] [place] [address] Karli Wells CNM [address] [place] [address] 05/06/2025 2:30 PM EDT Office Visit [address] [address] Corin Doyle MD [address] [place] [address] 07/01/2025 3:30 PM EST Medication Management [address] [address] Sam Peace, PharmD [address] [place] [address] documented as of this encounter Visit Diagnoses Not on filedocumented in this encounter Additional Health Concerns Assessment Noted Time PHQ-9 Depression Total Score: 0 11/24/19 23 3:58 PM EDT documented as of this encounter Care Teams Bowling Ball Mold Assembler Relationship Specialty Start Date End Date Corin Doyle MD [address] [place] [address] PCP - General Family Medicine 07/18/18 Sam Peace, PharmD [address] [place] [address] Pharmacist Pharmacy 03/06/25 Danay Carmen PrescriptionistStage Manager 12/09/23 Danay Carmen PrescriptionistStage Manager 08/27/24 documented as of this encounter
--- OUTSIDE RECORDS SUMMARY | 2025-04-01 20:30 | XMS_ITS | Encounter Summary ---
Author Organization [employer] Address [address] [facility] [address] 7t [place] [address] Care Team Providers Care Assistant Foreman Name Role Phone Corin Doyle MD Primary Care Provider Sam Peace PharmD Unavailable [phone] Reason for Visit * Reason Onset Date Comments Med Refill 02/19/2024 Encounter Details Date Type Department Care Team (Late st Contact Info) Description 02/19/2024 Refill [facility] 230 [place] [address] Gabriela López MD 230 [place], [place] [phone] Lumbar sprain, initial encounter Social History Tobacco [...] housing situation today? I have rubinashannon mccurdy 05/23/[address] you [...] Description 04/02/2025 2:45 PM EDT Procedure Visit [facility] [address] [place] [address] Karli Wells CNM [address] [place] [address] 05/06/2025 2:30 PM EDT Office Visit [address] [address] Corin Doyle MD [address] [place] [address] 07/01/2025 3:30 PM EST Medication Management [address] [address] Sam Peace, PharmD [address] [place] [address] documented as of this encounter Visit Diagnoses Diagnosis Lumbar sprain, initial encounter documented in this encounter Additional Health Concerns Assessment Noted Time PHQ-9 Depression Total Score: 0 11/24/19 23 3:58 PM EDT documented as of this encounter Care Teams Assistant Foreman Relationship Specialty Start Date End Date Corin Doyle MD [address] [place] [address] PCP - General Family Medicine 1/1/19 Sam Peace, PharmD [address] [place] [address] Pharmacist Pharmacy 03/06/25 Danay Carmen Refresh TechnicianState Auditor 12/09/23 Danay Carmen Refresh TechnicianState Auditor 08/27/24 documented as of this encounter
--- OUTSIDE RECORDS SUMMARY | 2025-04-01 20:30 | XMS_ITS | Encounter Summary ---
Author Organization [email or web address] Address [address] [facility] 7t [place] [address] Care Team Providers Care Insurance And Financial Services Agent Name Role Phone Corin Doyle MD Primary Care Provider [phone] Sam Peace PharmD Unavailable [phone] Reason for Visit * Reason Onset Date Comments Med Refill 03/01/2025 Encounter Details Date Type Department Care Team (Late st Contact Info) Description 03/01/2025 Refill [facility] [address] [place] [address] Corin Doyle MD [address] [place] [address] Social History Tobacco Use Types Packs/Day Years [...] [facility] [address] [place] [address] Karli Wells CNM [address] [place] [address] 05/06/2025 2:30 PM EDT Office Visit [address] [address] Corin Doyle MD [address] [place] [address] 07/01/2025 3:30 PM EST Medication Management [address] [address] Sam Peace, ConchisD [address] [place] [address] documented as of this encounter Visit Diagnoses Not on filedocumented in this encounter Additional Health Concerns Assessment Noted Time PHQ-9 Depression Total Score: 0 08/14/19 25 3:31 PM EST documented as of this encounter Care Teams Insurance And Financial Services Agent Relationship Specialty Start Date End Date Corin Doyle MD [address] [place] [address] PCP - General Family Medicine 07/18/18 Sam Peace, PharmD [address] [place] [address] Pharmacist Pharmacy 03/06/25 Danay Carmen Sausage MixerSupervisor Plastering 12/09/23 Danay Carmen Sausage MixerSupervisor Plastering 08/27/24 documented as of this encounter
--- OUTSIDE RECORDS SUMMARY | 2025-04-01 20:30 | XMS_ITS | Encounter Summary ---
Author Organization [employer] Address [address] [facility] [address] 7t [place] [address] Care Team Providers Care Communications Intern Name Role Phone Corin Doyle MD Primary Care Provider [phone] Sam Peace PharmD Unavailable [phone] Reason for Visit * Reason Onset Date Comments Med Refill 07/12/2024 Encounter Details Date Type Department Care Team (Late st Contact Info) Description 07/12/2024 Refill [facility] [address] [place] [address] Corin Doyle MD 230 [place] [address] Social History Tobacco Use Types Packs/Day Years [...] Description 04/02/2025 2:45 PM EDT Procedure Visit [facility] [address] [place] [address] Karli Wells CNM [address] [place] [address] 05/06/2025 2:30 PM EDT Office Visit [address] [address] Corin Doyle MD [address] [place] [address] 07/01/2025 3:30 PM EST Medication Management [address] [address] Sam Peace, PharmD [address] [place] [address] documented as of this encounter Visit Diagnoses Not on filedocumented in this encounter Additional Health Concerns Assessment Noted Time PHQ-9 Depression Total Score: 0 11/24/19 23 3:58 PM EDT documented as of this encounter Care Teams Communications Intern Relationship Specialty Start Date End Date Corin Doyle MD [address] [place] [address] PCP - General Family Medicine 07/18/18 Sam Peace, PharmD [address] [place] [address] Pharmacist Pharmacy 03/06/25 Danay Carmen Gypsum CalcinerWater Main Installer Helper 12/09/23 Danay Carmen Gypsum CalcinerWater Main Installer Helper 08/27/24 documented as of this encounter
--- OUTSIDE RECORDS SUMMARY | 2025-04-01 20:30 | XMS_ITS | Encounter Summary ---
Author Organization [employer] Address [address] [facility] [address] 7t [place] [address] Care Team Providers Care Automation Technician Name Role Phone Corin Doyle MD Primary Care Provider [phone] Sam Peace PharmD Unavailable [phone] Encounter Details Date Type Department Care Team (Latest Contact Info) Description 04/01/2025 Travel Social History Tobacco Use Types Packs/Day [...] Description 04/02/2025 2:45 PM EDT Procedure Visit [facility] [address] [place] [address] Karli Wells CNM [address] [place] [place] [address] 05/06/2025 2:30 PM EDT Office Visit [address] [address] Corin Doyle MD [address] [place] [address] 07/01/2025 3:30 PM EST Medication Management [address] [address] Sam Peace, PharmSol [address] [place] [address] documented as of this encounter Visit Diagnoses Not on filedocumented in this encounter Additional Health Concerns Assessment Noted Time PHQ-9 Depression Total Score: 0 08/14/19 25 3:31 PM EST documented as of this encounter Care Teams Automation Technician Relationship Specialty Start Date End Date Corin Doyle MD [address] [place] [address] PCP - General Family Medicine 07/18/18 Sam Peace, PharmD [address] [place] [address] Pharmacist Pharmacy 03/06/25 Danay Carmen Bottle TesterLocal Operator 12/09/23 Danay Carmen Bottle TesterLocal Operator 08/27/24 documented as of this encounter
--- OUTSIDE RECORDS SUMMARY | 2025-04-01 20:30 | XMS_ITS | Encounter Summary ---
Author Organization [employer] Address 75 [facility] 7t [place] [address] Care Team Providers Care Shell Mold Bonding Machine Operator Name Role Phone Corin Doyle MD Primary Care Provider Sam Peace PharmD Unavailable [phone] Reason for Visit * Reason Onset Date Comments Med Refill 01/30/2025 Encounter Details Date Type Department Care Team (Late st Contact Info) Description 01/30/2025 Refill [facility] [address] [place] [address] Corin Doyle MD [address] [place] [address] Social History Tobacco Use Types Packs/Day Years [...] Description 04/02/2025 2:45 PM EDT Procedure Visit [facility] [address] [place] [address] Karli Wells CNM [address] [place] [address] 05/06/2025 2:30 PM EDT Office Visit [address] [address] Corin Doyle MD [address] [place] [address] 07/01/2025 3:30 PM EST Medication Management [address] [address] Sam Peace, ConchisD [address] [place] [address] documented as of this encounter Visit Diagnoses Not on filedocumented in this encounter Additional Health Concerns Assessment Noted Time PHQ-9 Depression Total Score: 0 08/14/19 25 3:31 PM EST documented as of this encounter Care Teams Shell Mold Bonding Machine Operator Relationship Specialty Start Date End Date Corin Doyle MD 230 [place] [address] PCP - General Family Medicine 07/18/18 Sam Peace, PharmD [address] [place] [address] Pharmacist Pharmacy 03/06/25 Danay Carmen Cloth InspectorSupervisor Bonding 12/09/23 Danay Carmen Cloth InspectorSupervisor Bonding 08/27/24 documented as of this encounter
--- OUTSIDE RECORDS SUMMARY | 2025-04-01 20:30 | XMS_ITS | Encounter Summary ---
Author Organization [employer] Address 75 [facility] 7t [place] [address] Care Team Providers Care Brand Recorder Name Role Phone Corin Doyle MD Primary Care Provider [phone] Sam Peace PharmD Unavailable [phone] Reason for Visit * Reason Comments Med Refill Encounter Details Date Type Department Care Team ([facility] st Contact Info) Description 03/19/2025 Refill [facility] 230 [place], [place] [phone] Corin Doyle MD 230 [place] [address] Social History Tobacco Use Types Packs/Day Years [...] Description 04/02/2025 2:45 PM EDT Procedure Visit [facility] [address] [place] [address] Karli Wells, CNJessica [address] [place] [address] 05/06/2025 2:30 PM EDT Office Visit [address] [address] Corin Doyle MD [address] [place] [address] 07/01/2025 3:30 PM EST Medication Management [address] [address] Sam Peace, PharmD [address] [place] [address] documented as of this encounter Visit Diagnoses Not on filedocumented in this encounter Additional Health Concerns Assessment Noted Time PHQ-9 Depression Total Score: 0 08/14/19 25 3:31 PM EST documented as of this encounter Care Teams Brand Recorder Relationship Specialty Start Date End Date Corin Doyle MD 230 [place] [address] PCP - General Family Medicine 07/18/18 Sam Peace, PharmD 230 [place] [address] Pharmacist Pharmacy 03/06/25 Danay Carmen Toaster OperatorRibbon Lapper Tender 12/09/23 Danay Carmen Toaster OperatorRibbon Lapper Tender 08/27/24 documented as of this encounter
--- OUTSIDE RECORDS SUMMARY | 2025-04-01 20:30 | XMS_ITS | Encounter Summary ---
Author Organization [employer] Address [address] [facility] [address] 7t [place] [address] Care Team Providers Care Skilled Helper Name Role Phone Corin Doyle MD Primary Care Provider [phone] Sam Peace PharmD Unavailable [phone] Reason for Visit * Reason Onset Date Comments Med Refill 01/25/2024 Encounter Details Date Type Department Care Team (Late st Contact Info) Description 01/25/2024 Refill [facility] 230 [place] [address] Corin Doyle MD [address] [place] [address] Social History Tobacco Use Types Packs/Day Years [...] 2:45 PM EDT Procedure Visit [facility] [address] [place] [address] Karli Wells CNM [address] [place] [address] 05/06/2025 2:30 PM EDT Office Visit [address] [address] Corin Doyle MD [address] [place] [address] 07/01/2025 3:30 PM EST Medication Management [address] [address] Sam Peace, PharmD [address] [place] [address] documented as of this encounter Visit Diagnoses Not on filedocumented in this encounter Additional Health Concerns Assessment Noted Time PHQ-9 Depression Total Score: 0 11/24/19 23 3:58 PM EDT documented as of this encounter Care Teams Skilled Helper Relationship Specialty Start Date End Date Corin Doyle MD [address] [place] [address] PCP - General Family Medicine 07/18/18 Sam Peace, PharmD [address] [place] [address] Pharmacist Pharmacy 03/06/[address] SupervisorIn Store Marketing Representative 12/09/[address] SupervisorIn Store Marketing Representative 08/27/24 documented as of this encounter
--- OUTSIDE RECORDS SUMMARY | 2025-04-01 20:30 | XMS_ITS | Encounter Summary ---
Author Organization [employer] Address [address] [facility] [address] 7t [place] [address] Care Team Providers Care Luncheonette Operator Name Role Phone Corin Doyle MD Primary Care Provider [phone] Sam Peace PharmD Unavailable [phone] Reason for Visit * Reason Onset Date Comments Letter Request 07/05/2022 I called jodi comer the pt's request for a letter for housing. She stated that she is requesting an apartment on a first floor, or one with elevator accessibility, due to her medical conditions. Encounter Details Date Type Department Care Team ([facility] Contact Info) Description 07/05/2022 Telephone [facility] [address] [place], [place] [phone] Corin Doyle MD [address] [place] [address] Letter Request (I called regarding the pt's [...] Upcoming Encounters Date Type Department Care Team ([facility] Contact Info) Description 04/02/2025 2:45 PM EDT Procedure Visit [facility] [address] [place] [address] Karli Wells, POORNIMA 230 [place] [address] 05/06/2025 2:30 PM EDT Office Visit [address] [address] Corin Doyle MD [address] [place] [address] 07/01/2025 3:30 PM EST Medication Management [address] [address] Sam Peace, PharmSol [address] [place] [address] documented as of this encounter Visit Diagnoses Not on filedocumented in this encounter Care Teams Luncheonette Operator Relationship Specialty Start Date End Date Corin Doyle MD [address] [place] [address] [phone] PCP - General Family Medicine 07/18/18 Sam Peace, PharmD [address] [place] [address] [phone] Pharmacist Pharmacy 03/06/25 Danay Carmen Accounting ClerkPlant Tour Guide 12/09/23 Danay Carmen Accounting ClerkPlant Tour Guide 08/27/24 documented as of this encounter
--- OUTSIDE RECORDS SUMMARY | 2025-04-01 20:31 | XMS_ITS | Encounter Summary ---
Author Organization [employer] Address 75 [facility] 7t [place] [address] Care Team Providers Care Brimming Machine Operator Name Role Phone Corin Doyle MD Primary Care Provider [phone] Sam Peace PharmD Unavailable [phone] Reason for Visit * Reason Comments Med Refill Encounter Details Date Type Department Care Team ([facility] st Contact Info) Description 12/14/2022 Refill [facility] 230 [place], [place] [phone] Corin Doyle MD 230 [place], [place] [phone] LLQ pain Social History Tobacco Use Types [...] Description 04/02/2025 2:45 PM EDT Procedure Visit [address] [address] Karli Wells CNM [address] [place] [address] 05/06/2025 2:30 PM EDT Office Visit [address] [address] Corin Doyle MD [address] [place] [address] 07/01/2025 3:30 PM EST Medication Management [address] [address] Sam Peace, PharmD [address] [place] [address] documented as of this encounter Visit Diagnoses Diagnosis LLQ pain Abdominal pain, left lower quadrant documented in this encounter Additional Health Concerns Assessment Noted Time PHQ-9 Depression Total Score: 0 11/24/19 23 3:58 PM EDT documented as of this encounter Care Teams Brimming Machine Operator Relationship Specialty Start Date End Date Corin Doyle MD [address] [place] [address] PCP - General Family Medicine 07/18/18 Sam Peace, PharmD [address] [place] [address] Pharmacist Pharmacy 03/06/25 Danay Carmen Electrical Sign ServicerFishing Line Winding Machine Operator 12/09/23 Danay Carmen Electrical Sign ServicerFishing Line Winding Machine Operator 08/27/24 documented as of this encounter
--- OUTSIDE RECORDS SUMMARY | 2025-04-01 20:31 | XMS_ITS | Encounter Summary ---
Author Organization [employer] Address 75 [facility] 7t [place] [address] Care Team Providers Care Electrical Manager Name Role Phone Corin Doyle MD Primary Care Provider [phone] Sam Peace PharmD Unavailable [phone] Reason for Visit * Reason Onset Date Comments Referral 01/26/2023 Encounter Details Date Type Department Care Team ([facility] st Contact Info) Description 01/26/2023 Telephone [facility] [address] [place] [address] Corin Doyle MD 230 [place] [address] Referral Social History Tobacco Use Types Packs/Day [...] Referral done * Telephone Encounter - Nichelle Jaime - 01/26/2023 3:24 PM EDT Tc from gabriella with ICP requesting a referral for therapy. States pt is having depression/anxiety. Pt is also hearing voices and seeing a man documented in this encounter Plan of Treatment Upcoming Encounters Date Type Department Care Team (Late st Contact Info) Description 04/02/2025 2:45 PM EDT Procedure Visit [facility] [address] [place] [address] Karli Wells CNM 230 [place] [address] 05/06/2025 2:30 PM EDT Office Visit [address] [address] Corin Doyle MD [address] [place] [address] 07/01/2025 3:30 PM EST Medication Management [address] [address] Sam Peace, PharmD 230 [place] [address] documented as of this encounter Visit Diagnoses Not on filedocumented in this encounter Additional Health Concerns Assessment Noted Time PHQ-9 Depression Total Score: 0 11/24/19 23 3:58 PM EDT documented as of this encounter Care Teams Electrical Manager Relationship Specialty Start Date End Date Corin Doyle MD [address] [place] [address] PCP - General Family Medicine 07/18/18 Sam Peace, PharmD [address] [place] [address] Pharmacist Pharmacy 03/06/25 Gabriella Carmen Paint GrinderSenior Attorney 12/09/23 Gabriella Carmen Paint GrinderSenior Attorney 08/27/24 documented as of this encounter
--- OUTSIDE RECORDS SUMMARY | 2025-04-01 20:31 | XMS_ITS | Encounter Summary ---
Author Organization [employer] Address [address] [facility] [address] 7t [place] [address] Care Team Providers Care Hardboard Grinder Name Role Phone Corin Doyle MD Primary Care Provider Sam Peace PharmD Unavailable [phone] Reason for Visit * Reason Onset Date Comments triage 10/28/2022 Encounter Details Date Type Department Care Team ([facility] st Contact Info) Description 10/28/2022 Telephone [facility] [address] [place] [address] Corin Doyle MD 230 [place] [address] triage Social History Tobacco Use Types Packs/Day [...] 10/28/2022 11:47 AM EDT Triage call with Suze Meter Reader Inspector ID [id number] Pt reports burning with urination, bladder pressure, slight bilateral flank pain and frequency. Pt denies bad odor, fever. Pt is advised to come to [facility] to be seen today and Pt [...] Description 04/02/2025 2:45 PM EDT Procedure Visit [facility] [address] [place] [address] Karli Wells CNM [address] [place] [address] 05/06/2025 2:30 PM EDT Office Visit [facility] [address] [place] [address] Corin Doyle MD [address] [place] [address] 07/01/2025 3:30 PM EST Medication Management [facility] [address] [place] [address] Sam ePace, PharmD [address] [place] [address] documented as of this encounter Visit Diagnoses Not on filedocumented in this encounter Care Teams Hardboard Grinder Relationship Specialty Start Date End Date Corin Doyle MD [address] [place] [address] [phone] PCP - General Family Medicine 07/18/18 Sam Peace, ConchisD [address] [place] [address] Pharmacist Pharmacy 03/06/25 Danay Carmen Advertising ClerkReport Programmer 12/09/23 Danay Carmen Advertising ClerkReport Programmer 08/27/24 documented as of this encounter
== END 2025-04-01 15:06 | disposition home or self-care (01) ==
LOC: HO.HHCL 15:05
PROVIDERS: PCP Family Medicine; Visit Provider Family Medicine
DX: E87.6 Hypokalemia (principal)
CPT/HCPCS: 36415; 80048; 83735

== ENCOUNTER 2025-04-02 15:04 | Outpatient (REF) | payer MEDICAID, SELFPAY ==
--- OUTSIDE RECORDS SUMMARY | 2025-04-02 14:45 | XMS_ITS | Encounter Summary ---
Author Organization [employer] Address [address] [place] [address] 7t [place] [address] Care Team Providers Care Diet Assistant Name Role Phone Corin Doyle MD Primary Care Provider [phone] Sam Peace PharmD Unavailable [phone] Reason for Referral * Imaging (Urgent) - Authorized Specialty Diagnoses / Procedures Referred By Contac t Referred To Contact Radiology Diagnoses Unspecified dyspareunia Procedures Us Pelvis complete Karli Wells CNM [address] [place] [address] Phone: tel: fax: [address] Phone: tel: fax: Referral ID Status Reason Start Date Expiration Date V isits Requested Visits Authorized [id number] Authorized 04/02/2025 04/02/2026 1 1 * Imaging (Urgent) - Authorized Specialty Diagnoses / Procedures Referred By Contac t Referred To Contact Radiology Diagnoses Unspecified dyspareunia Procedures US Pelvis Transvaginal Karli Wells CNM [address] [place] [address] Phone: tel: fax: Referral ID Status Reason Start Date Expiration Date V isits Requested Visits Authorized [id number] Authorized 04/02/2025 04/02/2026 1 1 * Imaging (Urgent) - Authorized Specialty Diagnoses / Procedures Referred By Contac t Referred To Contact Radiology Diagnoses Breast pain, right Breast cyst, left Procedures BI Mammogram Diagnostic Tomosynthesis Bilateral Karli Wells POORNIMA [address] [place] [address] Phone: tel: fax: [address] Phone: tel: fax: Referral ID Status Reason Start Date Expiration Date V isits Requested Visits Authorized [id number] Authorized 04/02/2025 04/02/2026 1 1 * Imaging (Routine) - Authorized Specialty Diagnoses / Procedures Referred By Contac t Referred To Contact Radiology Diagnoses Breast cyst, left Procedures BI US Breast Limited Left Karli Wells, POORNIMA [address] [place] [address] Phone: tel: fax: [address] Phone: tel: fax: Referral ID Status Reason Start Date Expiration Date V isits Requested Visits Authorized [id number] Authorized 04/02/2025 04/02/2026 1 1 * Imaging (Urgent) - Authorized Specialty Diagnoses / Procedures Referred By Contac t Referred To Contact Radiology Diagnoses Breast pain, right Procedures BI US Breast Limited Right Karli Wells CNM [address] [place] [address] Phone: tel: fax: [address] Phone: tel: fax: Referral ID Status Reason Start Date Expiration Date V isits Requested Visits Authorized [id number] Authorized 04/02/2025 04/02/2026 1 1 Reason for Visit * Reason Comments pap Encounter Details Date Type Department Care Team (Latest Contact Info) Description 04/02/2025 2:45 PM EDT Procedure Visit [facility] [address] [place] [address] Karli Wells CNM [address] [place], [place] [phone] Cervical cancer screening (Primary Dx); Breast pain, [...] SpO2 98% BMI 37.75 kg/m?? Physical Exam Distributor Cleaner present: declines clothing designer. Constitutional: Appearance: Normal appearance. Chest: Breasts: Right: [...] Description 05/06/2025 2:30 PM EDT Office Visit [facility] [address] [place] [address] Corin Doyle MD [address] [place] [address] 07/01/2025 3:30 PM EST Medication Management [facility] [address] [place] [address] Sam Peace, PharmD [address] [place] [phone] Scheduled Orders Name Type Priority Associated Diagnoses [...] documented as of this encounter Care Teams Diet Assistant Relationship Specialty Start Date End Date Corin Doyle MD [address] [place] [address] PCP - General Family Medicine 07/18/18 Sam Peace, ConchisD [address] [place] [address] Pharmacist Pharmacy 03/06/25 Danay Carmen School Psychology ProfessorField Artillery Fire Control Man 12/09/23 Danay Carmen School Psychology ProfessorField Artillery Fire Control Man 08/27/24 documented as of this encounter
--- OUTSIDE RECORDS SUMMARY | 2025-04-03 15:57 | XMS_ITS | Encounter Summary ---
Author Organization [employer] Address [address] 7t [place] [address] Care Team Providers Care Dumper Bailer Operator Name Role Phone Corin Doyle MD Primary Care Provider [phone] Sam Peace PharmD Unavailable [phone] Reason for Visit * Reason Onset Date Comments Med Refill 03/01/2025 Encounter Details Date Type Department Care Team (Late st Contact Info) Description 03/01/2025 Refill [facility] [address] [place] [address] Corin Doyle MD [address] [place] [address] Social History Tobacco Use Types Packs/Day Years [...] Description 05/06/2025 2:30 PM EDT Office Visit [facility] [address] [place] [address] Corin Doyle MD [address] [place] [address] 07/01/2025 3:30 PM EST Medication Management [facility] [address] [place] [phone] Sam Peace PharmD [address] [place] [address] documented as of this encounter Visit Diagnoses Not on filedocumented in this encounter Additional Health Concerns Assessment Noted Time PHQ-9 Depression Total Score: 0 08/14/19 25 3:31 PM EST documented as of this encounter Care Teams Dumper Bailer Operator Relationship Specialty Start Date End Date Corin Doyle MD [address] [place] [address] PCP - General Family Medicine 07/18/18 Sam Peace, ConchisD [address] [place] [address], [place] [address] Pharmacist Pharmacy 03/06/25 Danay Carmen Bench CarpenterBag Loader 12/09/23 Danay Carmen Bench CarpenterBag Loader 08/27/24 documented as of this encounter
--- OUTSIDE RECORDS SUMMARY | 2025-04-03 15:57 | XMS_ITS | Encounter Summary ---
Author Organization [employer] Address [address] 7t [place] [address] Care Team Providers Care Hoop Riveting Machine Operator Name Role Phone Corin Doyle MD Primary Care Provider [phone] Sam Peace PharmD Unavailable [phone] Reason for Visit * Reason Onset Date Comments Med Refill 01/25/2024 Encounter Details Date Type Department Care Team (Late st Contact Info) Description 01/25/2024 Refill [facility] [address] [place] [address] Corin Doyle MD [address] [place] [address] Social History Tobacco Use Types Packs/Day Years [...] Description 05/06/2025 2:30 PM EDT Office Visit [facility] [address] [place] [address] Corin Doyle MD [address] [place] [address] 07/01/2025 3:30 PM EST Medication Management [facility] [address] [place] [address] Sam Peace, PharmD [address] [place] [address] documented as of this encounter Visit Diagnoses Not on filedocumented in this encounter Additional Health Concerns Assessment Noted Time PHQ-9 Depression Total Score: 0 11/24/19 23 3:58 PM EDT documented as of this encounter Care Teams Hoop Riveting Machine Operator Relationship Specialty Start Date End Date Corin Doyle MD [address] [place] [address] PCP - General Family Medicine 07/18/18 Sam Peace, PharmD [address] [place] [phone] Pharmacist Pharmacy 03/06/25 Danay Carmen SexologistRetail Performance Coach 12/09/23 Danay Carmen SexologistRetail Performance Coach 08/27/24 documented as of this encounter
--- OUTSIDE RECORDS SUMMARY | 2025-04-03 15:57 | XMS_ITS | Encounter Summary ---
Author Organization [employer] Address [address] 7t [place] [address] Care Team Providers Care Pastry Mixer Name Role Phone Corin Doyle MD Primary Care Provider [phone] Sam Peace PharmD Unavailable [phone] Encounter Details Date Type Department Care Team ([facility] st Contact Info) Description 08/17/2024 Orders Only [facility] [address] [place], [place] [phone] Corin Doyle MD [address] [place] [address] Social History Tobacco Use Types Packs/Day Years [...] Description 05/06/2025 2:30 PM EDT Office Visit [facility] [address] [place] [address] Corin Doyle MD [address] [place] [address] 07/01/2025 3:30 PM EST Medication Management [address] [address] Sam Peace, Yulissa [address] [place] [address] documented as of this encounter Visit Diagnoses Not on filedocumented in this encounter Additional Health Concerns Assessment Noted Time PHQ-9 Depression Total Score: 0 08/14/19 25 3:31 PM EST documented as of this encounter Care Teams Pastry Mixer Relationship Specialty Start Date End Date Corin Doyle MD [address] [place] [address] PCP - General Family Medicine 07/18/18 Sma Peace, PharmD [address] [place] [address] [phone] Pharmacist Pharmacy 03/06/25 Danay Carmen Electronic Warfare SpecialistBindery Manager 12/09/23 Danay Carmen Electronic Warfare SpecialistBindery Manager 08/27/24 documented as of this encounter
--- OUTSIDE RECORDS SUMMARY | 2025-04-03 15:57 | XMS_ITS | Encounter Summary ---
Author Organization [employer] Address [address] 7t [place] [address] Care Team Providers Care Compensation Intern Name Role Phone Corin Doyle MD Primary Care Provider [phone] Sam Peace PharmD Unavailable [phone] Reason for Visit * Reason Onset Date Comments Med Refill 02/19/2024 Encounter Details Date Type Department Care Team (Late st Contact Info) Description 02/19/2024 Refill [facility] [address] [place] [address] Gabriela López MD 230 [place], [place] [phone] Lumbar sprain, initial encounter Social History Tobacco [...] Description 05/06/2025 2:30 PM EDT Office Visit [facility] [address] [place] [address] Corin Doyle MD [address] [place] [address] 07/01/2025 3:30 PM EST Medication Management [facility] [address] [place] [address] Sam Peace, PharmD [address] [place] [phone] documented as of this encounter Visit Diagnoses Diagnosis Lumbar sprain, initial encounter documented in this encounter Additional Health Concerns Assessment Noted Time PHQ-9 Depression Total Score: 0 11/24/19 23 3:58 PM EDT documented as of this encounter Care Teams Compensation Intern Relationship Specialty Start Date End Date Corin Doyle MD [address] [place] [address] PCP - General Family Medicine 07/18/18 Sam Peace, PharmD [address] [place] [address] [phone] Pharmacist Pharmacy 03/06/25 Danay Carmen Strainer CleanerSap Business Objects Consultant 12/09/23 Danay Carmen Strainer CleanerSap Business Objects Consultant 08/27/24 documented as of this encounter
--- OUTSIDE RECORDS SUMMARY | 2025-04-03 15:57 | XMS_ITS | Encounter Summary ---
Author Organization [employer] Address [address] 7t [place] [address] Care Team Providers Care Corporate Strategist Name Role Phone Corin Doyle MD Primary Care Provider [phone] Sam Peace PharmD Unavailable Reason for Visit * Reason Onset Date Comments Med Refill 12/13/2023 Encounter Details Date Type Department Care Team (Late st Contact Info) Description 12/13/2023 Refill [facility] [address] [place] [address] Corin Doyle MD [address] [place] [address] Social History Tobacco Use Types Packs/Day Years [...] Description 05/06/2025 2:30 PM EDT Office Visit [facility] [address] [place] [address] Corin Doyle MD [address] [place] [address] 07/01/2025 3:30 PM EST Medication Management [facility] [address] [place] [phone] Sam Peace, PharmD [address] [place] [address] documented as of this encounter Visit Diagnoses Not on filedocumented in this encounter Additional Health Concerns Assessment Noted Time PHQ-9 Depression Total Score: 0 11/24/19 23 3:58 PM EDT documented as of this encounter Care Teams Corporate Strategist Relationship Specialty Start Date End Date Corin Doyle MD [address] [place] [address] PCP - General Family Medicine 07/18/18 Sam Peace, PharmD [address] [place] [phone] Pharmacist Pharmacy 03/06/25 Danay Carmen Recreation Program SpecialistRegistered Nurse Cardiac Telemetry 12/09/23 Danay Carmen Recreation Program SpecialistRegistered Nurse Cardiac Telemetry 08/27/24 documented as of this encounter
--- OUTSIDE RECORDS SUMMARY | 2025-04-03 15:57 | XMS_ITS | Encounter Summary ---
Author Organization [employer] Address [address] 7t [place] [address] Care Team Providers Care Can Intake Worker Name Role Phone Corin Doyle MD Primary Care Provider [phone] Sam Peace PharmD Unavailable [phone] Encounter Details Date Type Department Care Team ([facility] st Contact Info) Description 04/01/2025 Telephone [facility] [address] [place], [place] [phone] Corin Doyle MD [address] [place] [address] Social History Tobacco Use Types Packs/Day Years [...] Description 05/06/2025 2:30 PM EDT Office Visit [address] [address] Croin Doyle MD [address] [place] [address] 07/01/2025 3:30 PM EST Medication Management [address] [address] Sam Peace, Yulissa [address] [place] [address] documented as of this encounter Visit Diagnoses Not on filedocumented in this encounter Additional Health Concerns Assessment Noted Time PHQ-9 Depression Total Score: 0 08/14/19 25 3:31 PM EST documented as of this encounter Care Teams Can Intake Worker Relationship Specialty Start Date End Date Corin Doyle MD [address] [place] [address] PCP - General Family Medicine 07/18/18 Sam Peace, PharmD [address] [place] [address] [phone] Pharmacist Pharmacy 03/06/25 Danay Carmen Coffee Shop AideCampus Receptionist 12/09/23 Danay Carmen Coffee Shop AideCampus Receptionist 08/27/24 documented as of this encounter
--- OUTSIDE RECORDS SUMMARY | 2025-04-03 15:57 | XMS_ITS | Encounter Summary ---
Author Organization [employer] Address [address] [place] [address] Care Team Providers Care Industrial Electrician Name Role Phone Corin Doyle MD Primary Care Provider [phone] Sam Peace PharmD Unavailable [phone] Encounter Details Date Type Department Care Team ([facility] st Contact Info) Description 08/16/2023 Orders Only [facility] [address] [place], [place] [phone] Eddie Guerrero MD [address] [place], [place] [phone] Social History Tobacco Use Types Packs/Day Years [...] Description 05/06/2025 2:30 PM EDT Office Visit [facility] [address] [place] [phone] Corin Doyle MD [address] [place] [phone] 07/01/2025 3:30 PM EST Medication Management [facility] [address] [place] [phone] Sam Peace, PharmD [address] [place] [phone] documented as of this encounter Visit Diagnoses Not on filedocumented in this encounter Additional Health Concerns Assessment Noted Time PHQ-9 Depression Total Score: 0 11/24/19 23 3:58 PM EDT documented as of this encounter Care Teams Industrial Electrician Relationship Specialty Start Date End Date Corin Doyle MD [address] [place] [phone] PCP - General Family Medicine 07/18/18 Sam Peace, PharmD [address] [place] [address] [phone] Pharmacist Pharmacy 03/06/25 Danay Carmen Heel Cover SplitterSsis Ssrs Developer 12/09/23 Danay Carmen Heel Cover SplitterSsis Ssrs Developer 08/27/24 documented as of this encounter
--- OUTSIDE RECORDS SUMMARY | 2025-04-03 15:57 | XMS_ITS | Encounter Summary ---
Author Organization [employer] Address [address] [place] [address] Care Team Providers Care Continuous Miner Operator Helper Name Role Phone Corin Doyle MD Primary Care Provider [phone] Sam Peace PharmD Unavailable [phone] Reason for Visit * Reason Onset Date Comments Med Refill 01/25/2024 Encounter Details Date Type Department Care Team (Late st Contact Info) Description 01/25/2024 Refill [facility] [address] [place] [address] Corin Doyle MD [address] [place] [address] Social History Tobacco Use Types Packs/Day Years [...] Description 05/06/2025 2:30 PM EDT Office Visit [facility] [address] [place] [phone] Corin Doyle MD [address] [place] [phone] 07/01/2025 3:30 PM EST Medication Management [facility] [address] [place] [phone] Sam Peace, PharmD [address] [place] [phone] documented as of this encounter Visit Diagnoses Not on filedocumented in this encounter Additional Health Concerns Assessment Noted Time PHQ-9 Depression Total Score: 0 11/24/19 23 3:58 PM EDT documented as of this encounter Care Teams Continuous Miner Operator Helper Relationship Specialty Start Date End Date Corin Doyle MD [address] [place] [phone] PCP - General Family Medicine 07/18/18 Sam Peace, PharmD [address] [place] [address] [phone] Pharmacist Pharmacy 03/06/25 Danay Carmen Mobile Solutions ArchitectBallet Professor 12/09/23 Danay Carmen Mobile Solutions ArchitectBallet Professor 08/27/24 documented as of this encounter
--- OUTSIDE RECORDS SUMMARY | 2025-04-03 15:57 | XMS_ITS | Encounter Summary ---
Author Organization [employer] Address [address] [place] [address] Care Team Providers Care Vp Corporate Partnerships Name Role Phone Corin Doyle MD Primary Care Provider [phone] Sam Peace PharmD Unavailable [phone] Reason for Visit * Reason Onset Date Comments Med Refill 03/23/2024 Encounter Details Date Type Department Care Team (Late st Contact Info) Description 03/23/2024 Refill [facility] [address] [place] [address] Corin Doyle MD [address] [place] [address] Social History Tobacco Use Types Packs/Day Years [...] Description 05/06/2025 2:30 PM EDT Office Visit [facility] [address] [place] [phone] Corin Doyle MD [address] [place] [phone] 07/01/2025 3:30 PM EST Medication Management [facility] [address] [place] [phone] Sam Peace, PharmD [address] [place] [phone] documented as of this encounter Visit Diagnoses Not on filedocumented in this encounter Additional Health Concerns Assessment Noted Time PHQ-9 Depression Total Score: 0 11/24/19 23 3:58 PM EDT documented as of this encounter Care Teams Vp Corporate Partnerships Relationship Specialty Start Date End Date Corin Doyle MD [address] [place] [phone] PCP - General Family Medicine 07/18/18 Sam Peace, PharmD [address] [place] [phone] Pharmacist Pharmacy 03/06/25 Danay Carmen Plant AttendantSoftware Validation Technician 12/09/23 Danay Carmen Plant AttendantSoftware Validation Technician 08/27/24 documented as of this encounter
--- OUTSIDE RECORDS SUMMARY | 2025-04-03 15:57 | XMS_ITS | Encounter Summary ---
Author Organization [employer] Address [address] [place] [address] Care Team Providers Care Fusing Furnace Loader Name Role Phone Corin Doyle MD Primary Care Provider [phone] Sam Peace PharmD Unavailable [phone] Reason for Visit * Reason Onset Date Comments Med Refill 03/29/2024 Encounter Details Date Type Department Care Team (Late st Contact Info) Description 03/29/2024 Refill [facility] [address] [place] [address] Corin Doyle MD [address] [place] [address] Social History Tobacco Use Types Packs/Day Years [...] Description 05/06/2025 2:30 PM EDT Office Visit [facility] [address] [place] [phone] Corin Doyle MD [address] [place] [phone] 07/01/2025 3:30 PM EST Medication Management [facility] [address] [place] [phone] Sam Peace, PharmD [address] [place] [phone] documented as of this encounter Visit Diagnoses Not on filedocumented in this encounter Additional Health Concerns Assessment Noted Time PHQ-9 Depression Total Score: 0 11/24/19 23 3:58 PM EDT documented as of this encounter Care Teams Fusing Furnace Loader Relationship Specialty Start Date End Date Corin Doyle MD [address] [place] [phone] PCP - General Family Medicine 07/18/18 Sam Peace, PharmD [address] [place] [address] [phone] Pharmacist Pharmacy 03/06/25 Danay Carmen Hardboard Factory WorkerInspector Materials And Processes 12/09/23 Danay Carmen Hardboard Factory WorkerInspector Materials And Processes 08/27/24 documented as of this encounter
--- OUTSIDE RECORDS SUMMARY | 2025-04-03 15:57 | XMS_ITS | Encounter Summary ---
Author Organization [employer] Address [address] [place] [address] Care Team Providers Care Soyfreeze Operator Name Role Phone Corin Doyle MD Primary Care Provider [phone] Sam Peace PharmD Unavailable [phone] Reason for Visit * Reason Onset Date Comments Med Refill 11/02/2023 Encounter Details Date Type Department Care Team (Late st Contact Info) Description 11/02/2023 Refill [facility] [address] [place] [address] Corin Doyle MD [address] [place] [address] Social History Tobacco Use Types Packs/Day Years [...] instructions back to me. Also sent on [employer] so pt has them written out since she is active on [email or web address] scheduled for 11/15 with [facility] nurses for blood pressure check. Pt verbalized understanding and denied having any further questions or concerns at this time. * Telephone Encounter - Sarnaya Burt RN - 11/02/2023 11:00 AM EDT [...] Description 05/06/2025 2:30 PM EDT Office Visit [facility] [address] [place] [address] Corin Doyle MD [address] [place] [address] [phone] 07/01/2025 3:30 PM EST Medication Management [facility] [address] [place], [place] [phone] aSm Peace, PharmD [address] [place] [address] [phone] documented as of this encounter Visit Diagnoses Not on filedocumented in this encounter Additional Health Concerns Assessment Noted Time PHQ-9 Depression Total Score: 0 11/24/19 23 3:58 PM EDT documented as of this encounter Care Teams Soyfreeze Operator Relationship Specialty Start Date End Date Corin Doyle MD [address] [place] [address] [phone] PCP - General Family Medicine 07/18/18 Sam Peace, PharmD [address] [place] [address] [phone] Pharmacist Pharmacy 03/06/25 Danay Carmen Extractor Loader And UnloaderGrinding Machine Tender 12/09/23 Danay Carmen Extractor Loader And UnloaderGrinding Machine Tender 08/27/24 documented as of this encounter
--- OUTSIDE RECORDS SUMMARY | 2025-04-03 15:57 | XMS_ITS | Clinical Summary ---
Author Organization [employer] Address [address] [facility] 7t [place] [address] Care Team Providers Care Foiling Machine Adjuster Name Role Phone Corin Doyle MD Primary Care Provider [phone] Sam Peace PharmD Unavailable [phone] Allergies Active Allergy Reactions Criticality Noted Date [...] BY MOUTH DAILY WHEN DIRECTED BY HEALTH STRAPPER OPERATOR. DO NOT CRUSH OR CHEW. 30 tablet [...] by mouth daily when directed by health acute care certified nursing assistant. Do not crush or chew. 30 tablet 025 2024 Discontinued Active Problems Problem Noted Date Diagnosed Date Cervical polyp 04/02/2025 Primary osteoarthritis of right knee 02/11/2025 Assessment [...] [facility] provider Asthma 11/19/2013 Assessment & Plan (01/02/2025 12:52 PM EDT): -Last exacerbation in Feb 2022. Seen in [facility]. Rx prednisone and azithromycin. Negative COVID -Followed by allergy / pet nutrition specialist -Continue Symicort -Continue montelukast -Continue albuterol neb and inhaler prn --Pt uses nebulizer treatment at home because her symptoms respond better and faster to nebulizer treatment Assessment & Plan (08/14/2023 2:52 PM EST): -Last exacerbation in Feb 2022. Seen in [facility] ED. Rx prednisone and azithromycin. Negative COVID -Followed by allergy / pet nutrition specialist -Continue Symicort -Continue montelukast -Continue albuterol neb and inhaler prn --Pt uses nebulizer treatment at home because her symptoms respond better and faster to nebulizer treatment Assessment & Plan (11/23/2022 4:53 PM EDT): -Last exacerbation in Feb 2022. Seen in [facility]. Rx prednisone and azithromycin. Negative COVID -Followed by allergy / pet nutrition specialist -Continue Symicort -Continue montelukast -Continue albuterol neb and inhaler prn --Pt uses nebulizer treatment at home because her symptoms respond better and faster to nebulizer treatment Assessment & Plan (07/25/2022 1:55 PM EST): -Last exacerbation in Feb 2022. Seen in [facility]. Rx prednisone and azithromycin. Negative COVID -Followed by allergy / pet nutrition specialist -Continue Symicort -Continue montelukast -Continue albuterol neb and inhaler prn --Pt uses nebulizer treatment at home because her symptoms respond better and faster to nebulizer treatment Allergic rhinitis 12/06/2012 Assessment & Plan (01/02/2025 12:51 PM EDT): -Previously followed by Dr. Whitehead, allergy / pet nutrition specialist -Continue loratadine -Continue montelukast -Continue immunotherapy -Continue fluticasone nasal Assessment & Plan (08/14/2023 3:00 PM EST): -Previously followed by Dr. Whitehead, allergy / pet nutrition specialist -Continue loratadine -Continue montelukast -Continue immunotherapy -Continue fluticasone nasal Assessment & Plan (11/29/2022 7:45 AM EDT): -Previously followed by Dr. Whitehead, allergy / pet nutrition specialist -Continue loratadine -Continue montelukast -Continue immunotherapy -Continue fluticasone nasal Assessment & Plan (07/25/2022 2:06 PM EST): -Followed by Dr. Whitehead, allergy / pet nutrition specialist -Continue loratadine -Continue montelukast -Continue immunotherapy -Continue fluticasone nasal Chronic back pain 12/06/2012 Assessment & Plan (07/25/2022 2:07 PM EST): -Previously evaluated by paint coating machine operator at [facility] -s/p L4 TFESI -Continue back exercise at [...] nml sinus rhythm, borderline qtc -refer to sped teacher for eval Encounters Date Type Department Care Team Description 04/02/2025 2:45 PM EDT Procedure Visit [facility] [address] [place] [address] Karli Wells CNM Cervical cancer screening (Primary Dx); Breast pain, right; Unspecified dyspareunia; Breast cyst, left; Cervical polyp; Perimenopause 04/02/2025 Travel 04/02/2025 Results Follow-Up [facility] [address] [place] [address] Corin Doyle MD Basic Metabolic Panel, Magnesium 04/01/2025 Orders Only [facility] [address] [place] [address] Corin Doyle MD Primary hypertension (Primary Dx) 04/01/2025 Telephone [facility] [address] [place] [address] Corin Doyle MD 04/01/2025 Travel 04/01/2025 Telephone [facility] [address] [place] [address] Karli Wells CNM chart prep 03/24/2025 Refill [facility] [address] [place] [address] Corin Doyle MD 03/23/2025 Refill [facility] [address] [place] [address] Corin Doyle MD 03/20/2025 Refill [facility] [address] [place] [address] Gabriela López MD 03/20/2025 Refill [facility] [address] [place], [place] [address], [place] [address] Corin Doyle MD 03/19/2025 Refill [facility] [address] [place], [place] [address] Corin Doyle MD 03/13/2025 Refill [facility] [address] [place], [place] [address] Corin Doyle MD 03/06/2025 Refill [facility] [address], [place] [address] Corin Doyle MD [facility] 03/01/2025 Results Follow-Up [facility] [place], [place] [address] Corin Doyle MD Basic Metabolic Panel 03/01/2025 Orders Only [facility] [place] [address] Corin Doyle MD Hypokalemia (Primary Dx) 03/01/2025 Orders Only [facility] [place], [place] [address] Corin Doyle MD 03/01/2025 Travel 03/01/2025 Refill [facility] [place], [place] [address] Corin Doyle MD 02/26/2025 Travel 02/24/2025 Refill [facility] [place], [place] [address] Corin Doyle MD 02/15/2025 3:30 PM EDT Clinical Support [facility] [place], [place] [address] Saranya Burt RN Primary hypertension 02/15/2025 Telephone [facility] [place], [place] [address] Corin Doyle MD 02/15/2025 Travel 02/14/2025 Travel 02/11/2025 3:40 PM EDT Office Visit [facility] [place], [place] [address] Gabriela López MD Primary osteoarthritis of right knee (Primary Dx); Acute hip pain, right 02/11/2025 Travel 02/07/2025 Refill [facility] [address] [facility] [place] [address] Corin Doyle MD 2025 3:30 PM EDT Clinical Support [facility] [address] [facility] [address] Blanca Rendon, ROBERTO Primary hypertension 2025 Travel 01/31/2025 Travel 01/30/2025 Refill [facility] [address] [facility] [place] [address] Corin Doyle MD 01/23/2025 Refill [facility] [address] [place] [address] Croin Doyle MD 01/21/2025 Telephone [facility] [address] [place] [address] Corin Doyle MD Prior Authorization ( PA: Kellen) 01/15/2025 2:30 PM EDT Office Visit [facility] [address] [place] [address] Albert, Yuli, OD Presbyopia (Primary Dx) 01/15/2025 Travel 01/02/2025 Telephone [facility] [address] [place] [address] Saranya Burt, ROBERTO Care Coordination 01/01/2025 Orders Only [facility] [address] [place] [address] Corin Doyle MD 01/01/2025 Results Follow-Up [facility] [address] [place] [address] Corin Doyle MD Basic Metabolic Panel from Last 3 Months Immunizations Immunization Administration [...] Diabetes type II Father Heart disease Father Cancer Maternal Grandmother Heart disease Mother Cancer Mother's Brother Hypertension Sister Relation Name Status Comments Father Maternal Grandmother Mother Mother's Brother Sister Social History Tobacco Use Types Packs/Day [...] oz) 04/02/2025 2:50 P M EDT Height 157.5 cm (5' 2 ) 10/19/2024 4:05 PM EDT Body Mass Index 37.75 10/19/2024 4:05 PM EDT Plan of Treatment Upcoming Encounters Date Type Department Care Team (Late st Contact Info) Description 05/06/2025 2:30 PM EDT Office Visit [facility] [address] [place] [address] Corin Doyle MD [address] [place] [address] 07/01/2025 3:30 PM EST Medication Management [facility] [address] [place] [address] Sam Peace, PharmD [address] [place] [address] Health Maintenance Due Date Last Done Comments CT Colonography 1975 Colonoscopy 1976 Colorectal Cancer Screening 1975 FIT DNA/Cologuard 1976 FIT 1976 FOBT 1975 Sigmoidoscopy 1975 Pap Smear 01/31/1997 Cervical Cancer Screening 11/25/2022 [...] Screening 08/14/2025 08/14/2024 Disability Screening 12/31/2025 12/31/2024 Mammogram 01/25/2026 01/26/2024, 11/15, 06/19/2021, Additional history exists Zoster Vaccines (1 of 2) 01/31/2026 Family Planning (PISQ) 04/02/2026 04/02/2025 Tobacco Screening 04/02/2026 04/02/2025 Lipid Panel 08/14/2029 08/14/2024, 07/19, 07/23/2020, Additional [...] METABOLIC PANEL Routine 03/01/2025 3:44 PM EDT LIPID PANEL WITH REFLEX TO DIRECT LDL [...] GENERATION W/RFL Routine 07/23/2020 12:19 PM EST [employer] HISTORICAL HPV MRNA E6/E7 Routine 11/25/2017 10:52 AM EDT from Last 3 Months or Most Recently Relevant to Health Maintenance Results * Magnesium (04/01/2025 3:26 PM EDT) Magnesium 2.1 1.6 - 2.6 mg/dL [facility] Blood Venous blood specimen / Unknown 04/01/2025 3:26 PM EDT 04/01/2025 4:08 PM EDT us Corin Doyle MD LAB BLOOD ORDERABLES Final Resul t [facility] [address] [place] [address] [phone] * (ABNORMAL) Basic Metabolic Panel (04/01/2025 3:26 PM EDT) Only the most recent of2 resultswithin the time period is included. Sodium 144 135 - 145 mmol/L [facility] Potassium 3.6 3.3 - 5.1 mmol/L [facility] Chloride 109(H) 96 - 108 mmol/L [facility] Carbon Dioxide 29 22 - 29 mmol/L [facility] Anion Gap 10(L) 12 - 20 [facility] Urea Nitrogen (BUN) 15 9 - 16 mg/dL [facility] Creatinine, Serum 0.81 0.5 - 1.4 mg/dL [facility] Estimated Glomerular Filt Rate >60 [facility] Comment:Chronic Kidney Disea se: Estimated GFR < 60 mL/min/1.11r7Erdxuv Kidney Disease: Estimated GFR < 15 mL/min/1.73m2 Glucose 87 60 - 115 mg/dL [facility] Calcium 8.9 8.4 - 10.2 mg/dL [facility] Blood Venous blood specimen / Unknown 04/01/2025 3:26 PM EDT 04/01/2025 4:08 PM EDT Corin Doyle MD LAB BLOOD ORDERABLES Final Resul t Performing Organization Address City/[facility]/ZIP Co de Phone Number [facility] [address] [place] [address] [phone] * Lipid Panel with Reflex to Direct LDL (08/14/2024 4:05 PM EST) Triglycerides 114 <150 mg/dL [facility] Comment:Desirable Triglyceri de: less than 150 mg/dLBorderline High Triglyceride 150-199 mg/dLHigh Triglyceride: 200-499 mg/dLVery High Triglyceride: greater than or equal to 5OO mg/dL Cholesterol 146 <200 mg/dL [facility] Comment:Desirable Cholestero l: less than 200 mg/dLBorderline High Cholesterol: 200-239 mg/dLHigh Cholesterol: greater than 239 mg/dL LDL Cholesterol Calculated 83 <100 mg/dL [facility] Comment:Desirable LDL: less than 100 mg/dLNear Optimal/Above Optimal LDL: 110- 129 mg/dLBorderline High LDL: 130-159 mg/dLHigh LDL: 160-189 mg/dLVery High LDL: greater than or equal to 190 mg/dL HDL Cholesterol 41 >40 mg/dL [facility] Comment:Desirable HDL: great er than 40 mg/dL Note: This HDL assay may give artificially low results in patients with liver disease. Blood 08/14/2024 4:05 PM EST 08/14/2024 5:33 PM EST Corin Doyle MD LAB BLOOD ORDERABLES Final Resul t Performing Organization Address City/[facility]/ZIP Co de Phone Number [facility] [address] [place] [address] [phone] * BI US Breast Limited Left (01/26/2024 3:08 PM EDT) Anatomical Region Laterality Modality Breast Left Ultrasound 01/26/2024 3:08 PM EDT Narrative 01/26/2024 4:54 PM EDT [facility] [address] [place], [place] [address] Ultrasound Report Signed Patient: Janelle León MR#: [id number] : 1975 Acct:[id number] Age/Sex: 48 / F ADM Date: 01/26/24 Loc: HO.MAMMO Attending Dr: Corin Doyle MD Ordering Physician: Corin Doyle MD Date of Service: 01/26/24 Procedure(s): US breast LT limited mamm only Accession Number(s): [id number] cc: Corin Doyle MD EXAMINATION: MM DIAGNOSTIC [...] in OV> 01/26/24 1651 DD/ 1508 TD/TT: Chassis Engineer: Procedure Note Donotuseinterpreter, Image - 01/26/2024 [facility] [address] [place] [address] Ultrasound Report Signed Patient: Janelle León GMR#: [id number] : 1975Acct:[id number] Age/Sex: 48 / FADM Date: 01/26/24 Loc: HO.MAMMO Attending Dr: Corin Doyle MD Ordering Physician: Corin Doyle MD Date of Service: 01/26/24 Procedure(s): US breast LT limited mamm only Accession Number(s): [id number] cc: Corin Doyle MD EXAMINATION: MM DIAGNOSTIC [...] in OV> 01/26/24 1651 DD/ 1508 TD/TT: Chassis Engineer: us Corin Doyle MD IMG US PROCEDURES Final Result * Hepatitis A,B,C Profile (11/11/2023 8:41 AM EDT) Hepatitis A IgM Nonreactive Nonreactive [facility] Comment:IgM antibodies to GUZMÁN V not detected; does not exclude earlyacute or recovered HAV infection. ~Hepatitis B Surface Antibody REACTIVE Nonreactive [facility] Comment:REACTIVE: > 11.99 mI U/mL Hepatitis B Core Antibody Nonreactive Nonreactive [facility] Hepatitis C Antibody Nonreactive Nonreactive [facility] Comment:Antibodies to HCV no t detected; does not exclude early acuteHCV infection. Hepatitis B Surface Ag Negative Negative [facility] Blood Venous blood specimen / Unknown 11/11/2023 8:41 AM EDT 11/11/2023 11:40 AM EDT us Corin Doyle MD LAB BLOOD ORDERABLES Final Resul t [facility] [address] [place] [phone] * HIV 1/2 ANTIGEN/ANTIBODY,FOURTH GENERATION W/RFL (07/23/2020 12:19 PM EST) HIV-1/2 ANTIGEN AND ANTIBODIES, 4TH GENERATION W/ REFLEX NON-REACT LU NON-REACT LU [facility] Comment: HIV-1 antigen and HIV-1/HIV-2 [...] purpose. For additional information please refer to http://[employer]Tiltap/faq/FZQ993 (This link is being provided for informational/ educational purposes only.) The performance of this assay has not been clinically validated in patients less than 2 years old. 07/23/2020 12:1 9 PM EST Corin Doyle MD LAB BLOOD ORDERABLES Final Resul t [facility] [address] * HPV mRNA E6/E7 (11/25/2017 10:52 AM EDT) Pathologist [facility] HPV mRNA E6/E7 Not Detected NOT DETECTED [facility] Comment: This test was performed using the APTIMA(R) HPV Assay ([employer] This assay detects E6/E7 viral messenger RNA (mRNA) from 14 high-risk HPV types (16,18,31,33,35,39,45,51, 52,56,58,59,66,68). For additional information please refer to: http://[employer].Tiltap/faq/MZV904r0 (This link is being provided for informational/ educational purposes only.) Test Performed by [facility], [place] [facility], [address] [place] [address], [place] Arsenio Flor M.D., Ph.D., Director of Laboratories , [facility] [id number] Please note: Effective 03/29/2016, HPV testing will be performed using [facility]'s APTIMA test which targets mRNA. Detecting mRNA instead of DNA, as in older methods, offers significant improvements in specificity. 11/25/2017 10:5 2 AM EDT us Historical Provider HISTORICAL/NON ORDERABLE LABS Final Result [facility] [address] from Last 3 Months or Most Recently Relevant to Health Maintenance Insurance [facility] C[place] AD[place] Care Teams Foiling Machine Adjuster Relationship Specialty Start Date End Date Corin Doyle MD [address] [place] [address] PCP - General Family Medicine 07/18/18 Sam Peace, ConchisD [address] [place] [phone] Pharmacist Pharmacy 03/06/25 Danay Carmen PouncerBrand Analyst 12/09/23 Danay Carmen PouncerBrand Analyst 08/27/24
--- OUTSIDE RECORDS SUMMARY | 2025-04-03 15:57 | XMS_ITS | Encounter Summary ---
Author Organization [employer] Address [address] [facility] [address] [place] [address] Care Team Providers Care Wire Galvanizer Name Role Phone Corin Doyle MD Primary Care Provider [phone] Sam Peace PharmD Unavailable [phone] Reason for Visit * Reason Onset Date Comments Referral 10/18/2023 Encounter Details Date Type Department Care Team ([facility] st Contact Info) Description 10/18/2023 Telephone [facility] [address] [place] [address] Corin Doyle MD [address] [place] [address] Referral Social History Tobacco Use Types Packs/Day [...] - 10/18/2023 3:42 PM EDT Tc from [facility] with ICP calling in regards referral for cardiology, stated pt discussed referral on last appt with PCP on 08/08 and the referral is to control high blood pressure. documented in this encounter Plan of Treatment Upcoming Encounters Date Type Department Care Team (Late st Contact Info) Description 05/06/2025 2:30 PM EDT Office Visit [facility] [address] [place] [address] Corin Doyle MD [address] [place] [address] 07/01/2025 3:30 PM EST Medication Management [facility] [address] [place] [address] Sam Peace, PharmD [address] [place] [address] documented as of this encounter Visit Diagnoses Not on filedocumented in this encounter Additional Health Concerns Assessment Noted Time PHQ-9 Depression Total Score: 0 11/24/19 23 3:58 PM EDT documented as of this encounter Care Teams Wire Galvanizer Relationship Specialty Start Date End Date Corin Doyle MD [address] [place] [address] PCP - General Family Medicine 07/18/18 Sam Peace, PharmD [address] [place] [phone] Pharmacist Pharmacy 03/06/25 Danay Carmen Shipping Clerk/AdminSales Architect 12/09/23 Danay Carmen Shipping Clerk/AdminSales Architect 08/27/24 documented as of this encounter
--- OUTSIDE RECORDS SUMMARY | 2025-04-03 15:57 | XMS_ITS | Encounter Summary ---
Author Organization [employer] Address [address] [facility] [address] 7[address] [place] [address] Care Team Providers Care Campus Ambassador Name Role Phone Corin Doyle MD Primary Care Provider [phone] Sam Peace PharmD Unavailable [phone] Reason for Visit * Reason Comments Med Refill Encounter Details Date Type Department Care Team ([facility] st Contact Info) Description 11/07/2023 Refill [facility] [address] [place], [place] [phone] Eddie Guerrero MD [address] [place], [place] [phone] Social History Tobacco Use Types Packs/Day Years [...] Description 05/06/2025 2:30 PM EDT Office Visit [facility] [address] [place] [address] Corin Doyle MD [address] [place] [address] 07/01/2025 3:30 PM EST Medication Management [facility] [address] [place] [address] Sam Peace, PharmD [address] [place] [phone] documented as of this encounter Visit Diagnoses Not on filedocumented in this encounter Additional Health Concerns Assessment Noted Time PHQ-9 Depression Total Score: 0 11/24/19 23 3:58 PM EDT documented as of this encounter Care Teams Campus Ambassador Relationship Specialty Start Date End Date Corin Doyle MD [address] [place] [phone] PCP - General Family Medicine 07/18/18 Sam Peace, PharmD [address] [place] [address] [phone] Pharmacist Pharmacy 03/06/25 Danay Carmen Shipping SupportLocket Maker 12/09/23 Danay Carmen Shipping SupportLocket Maker 08/27/24 documented as of this encounter
--- OUTSIDE RECORDS SUMMARY | 2025-04-03 15:57 | XMS_ITS | Encounter Summary ---
Author Organization [employer] Address [address] [facility] [address] [place] [address] Care Team Providers Care Flagstone Layer Name Role Phone Corin Doyle MD Primary Care Provider [phone] Sam Peace PharmD Unavailable [phone] Reason for Visit * Reason Onset Date Comments Med Refill 11/14/2023 Encounter Details Date Type Department Care Team (Late st Contact Info) Description 11/14/2023 Refill [facility] [address] [place] [address] Corin Doyle MD [address] [place] [address] Rash Social History Tobacco Use Types Packs/Day [...] Description 05/06/2025 2:30 PM EDT Office Visit [facility] [address] [place] [address] Corin Doyle MD [address] [place] [address] 07/01/2025 3:30 PM EST Medication Management [facility] [address] [place] [phone] Sam Peace, PharmD [address] [place] [phone] documented as of this encounter Visit Diagnoses Diagnosis Rash Rash and other nonspecific skin eruption documented in this encounter Additional Health Concerns Assessment Noted Time PHQ-9 Depression Total Score: 0 11/24/19 23 3:58 PM EDT documented as of this encounter Care Teams Flagstone Layer Relationship Specialty Start Date End Date Corin Doyle MD [address] [place] [address] PCP - General Family Medicine 07/18/18 Sam Peace, PharmD [address] [place] [address] [phone] Pharmacist Pharmacy 03/06/25 Danay Carmen SheriffGeneral Claims Agent 12/09/23 Danay Carmen SheriffGeneral Claims Agent 08/27/24 documented as of this encounter
--- OUTSIDE RECORDS SUMMARY | 2025-04-03 15:57 | XMS_ITS | Encounter Summary ---
Author Organization [employer] Address [address] 7t [place] [address] Care Team Providers Care Machine Programmer Name Role Phone Corin Doyle MD Primary Care Provider [phone] Sam Peace PharmD Unavailable [phone] Reason for Visit * Reason Onset Date Comments Med Refill 11/01/2023 Encounter Details Date Type Department Care Team (Late st Contact Info) Description 11/01/2023 Refill [facility] MEDICINE [address] [place] [address] Corin Doyle MD [address] [place] [address] Social History Tobacco Use Types Packs/Day Years [...] Description 05/06/2025 2:30 PM EDT Office Visit [facility] MEDICINE [address] [place] [address] Corin Doyle MD [address] [place] [address] 07/01/2025 3:30 PM EST Medication Management [facility] MEDICINE [address] [place] [address] Sam Peace, PharmD [address] [place] [address] documented as of this encounter Visit Diagnoses Not on filedocumented in this encounter Additional Health Concerns Assessment Noted Time PHQ-9 Depression Total Score: 0 11/24/19 23 3:58 PM EDT documented as of this encounter Care Teams Machine Programmer Relationship Specialty Start Date End Date Corin Doyle MD [address] [place] [address] PCP - General Family Medicine 07/18/18 Sam Peace, PharmD [address] [place] [address] Pharmacist Pharmacy 03/06/25 Danay Carmen Infection Control PractitionerPrincipal Programmer 12/09/23 Danay Carmen Infection Control PractitionerPrincipal Programmer 08/27/24 documented as of this encounter
--- OUTSIDE RECORDS SUMMARY | 2025-04-03 15:57 | XMS_ITS | Encounter Summary ---
Author Organization [employer] Address [address] 7[address] [place] [address] Care Team Providers Care Cloth Feeder Name Role Phone Corin Doyle MD Primary Care Provider [phone] Sam Peace PharmD Unavailable [phone] Reason for Visit * Reason Onset Date Comments Med Refill 12/03/2024 Encounter Details Date Type Department Care Team (Late st Contact Info) Description 12/03/2024 Refill [facility] MEDICINE [address] [place] [address] Eddie Guerrero MD [address] [place] [address] Moderate persistent asthma with acute exacerbation Social [...] Description 05/06/2025 2:30 PM EDT Office Visit [facility] MEDICINE [address] [place] [address] Corin Doyle MD [address] [place] [address] 07/01/2025 3:30 PM EST Medication Management [facility] MEDICINE [address] [place] [phone] Sam Peace PharmD [address] [place] [address] documented as of this encounter Visit Diagnoses Diagnosis Moderate persistent asthma with acute exacerbation documented in this encounter Additional Health Concerns Assessment Noted Time PHQ-9 Depression Total Score: 0 08/14/19 25 3:31 PM EST documented as of this encounter Care Teams Cloth Feeder Relationship Specialty Start Date End Date Corin Doyle MD [address] [place] [address] PCP - General Family Medicine 07/18/18 Sam Peace, ConchisD [address] [place] [address] Pharmacist Pharmacy 03/06/25 Danay Carmen Rope Machine SetterPrincipal Bioinformatics Specialist 12/09/23 Danay Carmen Rope Machine SetterPrincipal Bioinformatics Specialist 08/27/24 documented as of this encounter
--- OUTSIDE RECORDS SUMMARY | 2025-04-03 15:57 | XMS_ITS | Encounter Summary ---
Author Organization [email or web address] Address [address] [facility] 7t [place] [address] Care Team Providers Care Stem Crusher Name Role Phone Corin Doyle MD Primary Care Provider [phone] Sam Peace PharmD Unavailable [phone] Reason for Visit * Reason Onset Date Comments Med Refill 01/30/2025 Encounter Details Date Type Department Care Team (Late st Contact Info) Description 01/30/2025 Refill [facility] MEDICINE [address] [place] [address] Corin Doyle MD 230 [place] [address] Social History Tobacco Use Types Packs/Day Years [...] Description 05/06/2025 2:30 PM EDT Office Visit [facility]INE [address] [place] [address] Corin Doyle MD [address] [place] [address] 07/01/2025 3:30 PM EST Medication Management [facility]INE [address] [place] [address] Sam Peace PharmD [address] [place] [address] documented as of this encounter Visit Diagnoses Not on filedocumented in this encounter Additional Health Concerns Assessment Noted Time PHQ-9 Depression Total Score: 0 08/14/19 25 3:31 PM EST documented as of this encounter Care Teams Stem Crusher Relationship Specialty Start Date End Date Corin Doyle MD [address] [place] [address] PCP - General Family Medicine 07/18/18 Sam Peace, ConchisD [address] [place] [address], [place] [address] Pharmacist Pharmacy 03/06/25 Danay Carmen [employer] ProfessionalBiomedical Manager 12/09/23 Danay Carmen [employer] ProfessionalBiomedical Manager 08/27/24 documented as of this encounter
--- OUTSIDE RECORDS SUMMARY | 2025-04-03 15:57 | XMS_ITS | Encounter Summary ---
Author Organization [employer] Address [address] 7t [place] [address] Care Team Providers Care State Superintendent Of Schools Name Role Phone Corin Doyle MD Primary Care Provider [phone] Sam Peace PharmD Unavailable [phone] Reason for Visit * Reason Onset Date Comments Med Refill 04/02/2024 Encounter Details Date Type Department Care Team (Late st Contact Info) Description 04/02/2024 Refill [facility] MEDICINE 230 [place] [address] Corin Doyle MD 230 [place] [address] Social History Tobacco Use Types Packs/Day Years [...] Description 05/06/2025 2:30 PM EDT Office Visit [facility] MEDICINE [address] [place] [address] Corin Doyle MD [address] [place] [address] 07/01/2025 3:30 PM EST Medication Management [facility] MEDICINE [address] [place] [phone] Sam Peace, PharmD [address] [place] [address] documented as of this encounter Visit Diagnoses Not on filedocumented in this encounter Additional Health Concerns Assessment Noted Time PHQ-9 Depression Total Score: 0 11/24/19 23 3:58 PM EDT documented as of this encounter Care Teams State Superintendent Of Schools Relationship Specialty Start Date End Date Corin Doyle MD [address] [place] [address] PCP - General Family Medicine 07/18/18 Sam Peace, PharmD [address] [place] [address] Pharmacist Pharmacy 03/06/25 Danay Carmen Lidding Machine OperatorRobotic Technician 12/09/23 Danay Carmen Lidding Machine OperatorRobotic Technician 08/27/24 documented as of this encounter
--- OUTSIDE RECORDS SUMMARY | 2025-04-03 15:57 | XMS_ITS | Encounter Summary ---
Author Organization [email or web address] Address [address] 7t [place] [address] Care Team Providers Care Aircraft Engine Installer Name Role Phone Corin Doyle MD Primary Care Provider [phone] Sam Peace PharmD Unavailable [phone] Reason for Visit * Reason Onset Date Comments Med Refill 04/20/2024 Encounter Details Date Type Department Care Team (Late st Contact Info) Description 04/20/2024 Refill [facility] MEDICINE [address] [place] [address] Corin Doyle MD [address] [place] [address] Social History Tobacco Use Types Packs/Day Years [...] Description 05/06/2025 2:30 PM EDT Office Visit [facility] MEDICINE [address] [place] [address] Corin Doyle MD [address] [place] [address] 07/01/2025 3:30 PM EST Medication Management [facility] MEDICINE [address] [place] [phone] Sam Peace, PharmD [address] [place] [address] documented as of this encounter Visit Diagnoses Not on filedocumented in this encounter Additional Health Concerns Assessment Noted Time PHQ-9 Depression Total Score: 0 11/24/19 23 3:58 PM EDT documented as of this encounter Care Teams Aircraft Engine Installer Relationship Specialty Start Date End Date Corin Doyle MD [address] [place] [address] PCP - General Family Medicine 07/18/18 Sam Peace, PharmD [address] [place] [address] Pharmacist Pharmacy 03/06/25 Danay Carmen Care Management AssistantShellfish Processing Laborer 12/09/23 Danay Carmen Care Management AssistantShellfish Processing Laborer 08/27/24 documented as of this encounter
--- OUTSIDE RECORDS SUMMARY | 2025-04-03 15:57 | XMS_ITS | Encounter Summary ---
Author Organization [employer] Address [address] [place] [address] 7t [place] [address] Care Team Providers Care Oyster Culler Name Role Phone Corin Doyle MD Primary Care Provider [phone] Sam Peace PharmD Unavailable [phone] Reason for Referral * Consultation (Routine) - Authorized Specialty Diagnoses / Procedures Referred By Contac t Referred To Contact Pharmacy Diagnoses Primary hypertension Corin Doyle MD [address] [place] [address] Phone: tel: fax: Referral ID Status Reason Start Date Expiration Date Visits Requested Visits Authorized [id number] Authorized Consult and Treat 04/01/2025 04/01/2026 6 6 Encounter Details Date Type Department Care Team (Late st Contact Info) Description 04/01/2025 Orders Only [facility] [address] [place] [address] [phone] Corin Doyle MD [address] [place] [address] [phone] Primary hypertension (Primary Dx) Social History Tobacco [...] Description 05/06/2025 2:30 PM EDT Office Visit [facility] [address] [place] [address] Corin Doyle MD [address] [place] [address] 07/01/2025 3:30 PM EST Medication Management [address] [address] Sam Peace, PharmD [address] [place] [address] Scheduled Referrals Name Type Priority Associated Diagnoses Orde r Schedule Referral to Pharmacy CDTM Outpatient Referral Routine Primary hypertension Ordered: 04/01/2025 documented as of this encounter Visit Diagnoses Diagnosis Primary hypertension- Primary Unspecified essential hypertension documented in this encounter Additional Health Concerns Assessment Noted Time PHQ-9 Depression Total Score: 0 08/14/19 3:31 PM EST documented as of this encounter Care Teams Oyster Culler Relationship Specialty Start Date End Date Corin Doyle MD [address] [place] [address] PCP - General Family Medicine 07/18/18 Sam Peace, PharmD [address] [place] [address] Pharmacist Pharmacy 03/06/25 Danay Carmen Glass ArtistMaintenance Person 12/09/23 Danay Carmen Glass ArtistMaintenance Person 08/27/24 documented as of this encounter
--- OUTSIDE RECORDS SUMMARY | 2025-04-03 15:57 | XMS_ITS | Encounter Summary ---
Author Organization [employer] Address [address] [facility] [address]t [place] [address] Care Team Providers Care Knife Setter Grinder Machine Name Role Phone Corin Doyle MD Primary Care Provider [phone] Sam Peace PharmD Unavailable [phone] Reason for Visit * Reason Onset Date Comments chart prep 04/01/2025 Encounter Details Date Type Department Care Team ([facility] st Contact Info) Description 04/01/2025 Telephone [facility] MEDICINE [address] [place] [address] Karli Wells CNM [address] [place] [address] chart prep Social History Tobacco Use Types [...] 2:30 PM EDT Office Visit [facility] MEDICINE [address] [place] [address] Corin Doyle MD [address] [place] [address] 07/01/2025 3:30 PM EST Medication Management [facility] MED[facility]INE [address] [place] [phone] Sam Peace, PharmD [address] [place] [address] documented as of this encounter Visit Diagnoses Not on filedocumented in this encounter Additional Health Concerns Assessment Noted Time PHQ-9 Depression Total Score: 0 01/28/20 25 3:31 PM EST documented as of this encounter Care Teams Knife Setter Grinder Machine Relationship Specialty Start Date End Date Corin Doyle MD [address] [place] [address] PCP - General Family Medicine 07/18/18 Sam Peace, ConchisD 230 [place] [address] Pharmacist Pharmacy 03/06/25 Danay Carmen Casino Floor RunnerAnalytical Statistician 12/09/23 Danay Carmen Casino Floor RunnerAnalytical Statistician 08/27/24 documented as of this encounter
--- OUTSIDE RECORDS SUMMARY | 2025-04-03 15:57 | XMS_ITS | Encounter Summary ---
Author Organization [employer] Address [address] 7t [place] [address] Care Team Providers Care Marine Diesel Mechanic Name Role Phone Corin Doyle MD Primary Care Provider [phone] Sam Peace PharmD Unavailable [phone] Encounter Details Date Type Department Care Team ([facility] Contact Info) Description 04/02/2025 Results Follow-Up [facility] MEDICINE [address] [place], [place] [phone] Corin Doyle MD 230 [place], [place] [phone] Basic Metabolic Panel, Magnesium Social History Tobacco Use Types Packs/Day Years [...] Description 05/06/2025 2:30 PM EDT Office Visit [facility] MEDICINE [address] [place] [address] Corin Doyle MD [address] [place] [address] 07/01/2025 3:30 PM EST Medication Management [address] [address] Sam Peace, Yulissa [address] [place] [address] documented as of this encounter Visit Diagnoses Not on filedocumented in this encounter Additional Health Concerns Assessment Noted Time PHQ-9 Depression Total Score: 0 08/14/19 25 3:31 PM EST documented as of this encounter Care Teams Marine Diesel Mechanic Relationship Specialty Start Date End Date Corin Doyle MD [address] [place] [address] PCP - General Family Medicine 07/18/18 Sam Peace, PharmD [address] [place] [address] [phone] Pharmacist Pharmacy 03/06/25 Danay Carmen Hospice DirectorCredit Analyst 12/09/23 Danay Carmen Hospice DirectorCredit Analyst 08/27/24 documented as of this encounter
--- OUTSIDE RECORDS SUMMARY | 2025-04-03 15:57 | XMS_ITS | Encounter Summary ---
Author Organization [employer] Address [address] 7t [place] [address] Care Team Providers Care Extrusion Line Operator Name Role Phone Corin Doyle MD Primary Care Provider [phone] Sam Peace PharmD Unavailable [phone] Encounter Details Date Type Department Care Team (Latest Contact Info) Description 04/02/2025 Travel Social History Tobacco Use Types Packs/Day [...] 2:30 PM EDT Office Visit [facility] MEDICINE [address] [place] [phone] Corin Doyle MD [address] [place] [address] 07/01/2025 3:30 PM EST Medication Management [facility] MEDICINE [address] [place] [address] Sam Peace, PharmD [address] [place] [address] documented as of this encounter Visit Diagnoses Not on filedocumented in this encounter Additional Health Concerns Assessment Noted Time PHQ-9 Depression Total Score: 0 08/14/19 3:31 PM EST documented as of this encounter Care Teams Extrusion Line Operator Relationship Specialty Start Date End Date Corin Doyle MD [address] [place] [address] PCP - General Family Medicine 07/18/18 Sam Peace, PharmD [address] [place] [address] Pharmacist Pharmacy 03/06/25 Danay Carmen Stock PreparerFruit Sprayer 12/09/23 Danay Carmen Stock PreparerFruit Sprayer 08/27/24 documented as of this encounter
--- OUTSIDE RECORDS SUMMARY | 2025-04-03 15:57 | XMS_ITS | Encounter Summary ---
Author Organization [employer] Address [address] [facility] 7t [place] [address] Care Team Providers Care Mail Clerks Supervisor Name Role Phone Corin Doyle MD Primary Care Provider [phone] Sam Peace PharmD Unavailable [phone] Reason for Visit * Reason Comments Med Change Request Encounter Details Date Type Department Care Team ([facility] st Contact Info) Description 01/08/2024 Refill [facility] MEDICINE [address] [place], [place] [phone] Corin Doyle MD 230 [place], [place] [phone] Social History Tobacco Use Types Packs/Day Years [...] Description 05/06/2025 2:30 PM EDT Office Visit [facility] MEDICINE [address] [place] [address] Corin Doyle MD [address] [place] [address] 07/01/2025 3:30 PM EST Medication Management [facility] MEDICINE [address] [place] [address] Sam Peace, PharmD [address] [place] [address] documented as of this encounter Visit Diagnoses Not on filedocumented in this encounter Additional Health Concerns Assessment Noted Time PHQ-9 Depression Total Score: 0 11/24/19 23 3:58 PM EDT documented as of this encounter Care Teams Mail Clerks Supervisor Relationship Specialty Start Date End Date Corin Doyle MD [address] [place] [address] PCP - General Family Medicine 07/18/18 Sam Peace, PharmD [address] [place] [address] [phone] Pharmacist Pharmacy 03/06/25 Danay Carmen Utility AideMarketing Analyst 12/09/23 Danay Carmen Utility AideMarketing Analyst 08/27/24 documented as of this encounter
--- OUTSIDE RECORDS SUMMARY | 2025-04-03 15:57 | XMS_ITS | Encounter Summary ---
Author Organization [employer] Address [address] [place] [address] 7[address] [place] [address] Care Team Providers Care Music Journalist Name Role Phone Corin Doyle MD Primary Care Provider [phone] Sam Peace PharmD Unavailable [phone] Reason for Referral * Imaging (Routine) - Closed Specialty Diagnoses / Procedures Referred By Contac t Referred To Contact Radiology Diagnoses Breast cancer screening by mammogram Procedures BI Mammogram Screening Tomosynthesis Bilateral Corin Doyle MD [address] [place] [address] Phone: tel: fax: [address] Phone: tel: fax: Referral ID Status Reason Start Date Expiration Date Visits Re quested Visits Authorized [id number] Closed 11/01/2023 10/31/2024 1 1 * Consultation (Routine) - Canceled Specialty Diagnoses / Procedures Referred By Contac t Referred To Contact Gastroenterology Diagnoses Colon cancer screening Corin Doyle MD [address] [place] [address] Phone: tel: fax: Referral ID Status Reason Start Date Expiration Date Visits Requested Visits Authorized [id number] Canceled Specialty Services Required 11/01/2023 10/31/2024 1 1 * Imaging (Routine) - Closed Specialty Diagnoses / Procedures Referred By Contantwon t Referred To Contact Radiology Diagnoses Elevated liver enzymes Procedures US Abdomen Comp w elastography Corin Doyle MD [address] [place] [address] Phone: tel: fax: [facility] [address] [place] [address] Phone: tel: fax: Referral ID Status Reason Start Date Expiration Date Visits Re quested Visits Authorized [id number] Closed 11/01/2023 10/31/2024 1 1 Encounter Details Date Type Department Care Team (Late st Contact Info) Description 11/01/2023 Orders Only [facility] MEDICINE [address] [place] [phone] Corin Doyle MD [address] [place] [address] Elevated liver enzymes (Primary Dx); Breast cancer [...] 2:30 PM EDT Office Visit [facility] MEDICINE [address] [place] [address] Corin Doyle MD [address] [place] [address] 07/01/2025 3:30 PM EST Medication Management [facility] MEDICINE [address] [place] [phone] Sam Peace, PharmD [address] [place] [address] Scheduled Referrals Name Type Priority Associated Diagnoses [...] PM EDT Narrative 12/30/2023 5:50 AM EDT [address] [place], [place] [address] Mammography Report Signed Patient: Janelle León MR#: [id number] : 1975 Acct:[id number] Age/Sex: 48 / F ADM Date: 11/29/23 Loc: HO.MAMMO Attending Dr: Corin Doyle MD Ordering Physician: Corin Doyle MD Results: 0Incomple te: Needs Additional Imaging Evaluation Date of Service: 11/29/23 Follow Up: Additional Imagi ng Procedure(s): MM tomosynthesis screening BI Accession Number(s): [id number] cc: Corin Doyle MD EXAMINATION: MM SCREENING [...] in OV> 12/30/23 0546 DD/ 1557 TD/TT: Shovel Loader Operator: Procedure Note Donotuseinterpreter, Image - 12/30/2023 [facility] [address] [place] [address] Mammography Report Signed Patient: Janelle León GMR#: [id number] : 1975Acct:[id number] Age/Sex: 48 / FADM Date: 11/29/23 Loc: HARI Attending Dr: Corin Doyle MD Ordering Physician: Corin Doyle MDResults: 0Incomple te: Needs Additional Imaging Evaluation Date of Service: 11/29/23Follow Up: Additional Imagi ng Procedure(s): MM tomosynthesis screening BI Accession Number(s): [id number] cc: Corin Doyle MD EXAMINATION: MM SCREENING [...] in OV> 12/30/23 0546 DD/ 1557 TD/TT: Shovel Loader Operator: us Corin Doyle MD IMG BI PROCEDURES Edited Result - Final * US Abdomen Comp w elastography (11/22/2023 11:50 AM EDT) Anatomical Region Laterality Modality Abdomen Ultrasound 11/22/2023 11:5 0 AM EDT Narrative 11/28/2023 5:18 PM EDT [place] [address] Ultrasound Report Signed Patient: Janelle León MR#: [id number] : 1975 Acct:[id number] Age/Sex: 48 / F ADM Date: 11/22/23 Loc: HO.US Attending Dr: Corin Doyle MD Ordering Physician: Corin Doyle MD Date of Service: 11/22/23 Procedure(s): US abdomen comp w elastography Accession Number(s): [id number] cc: Corin Doyle MD EXAMINATION: US COMPLETE [...] in OV> 11/28/23 1714 DD/ 1150 TD/TT: Shovel Loader Operator: KIMI Procedure Note Donotuseinterpreter, Image - 11/28/2023 [place] [address] Ultrasound Report Signed Patient: Janelle León GMR#: [id number] : 1975Acct:[id number] Age/Sex: 48 / FADM Date: 11/22/23 Loc: HO.US Attending Dr: Corin Doyle MD Ordering Physician: Corin Doyle MD Date of Service: 11/22/23 Procedure(s): US abdomen comp w elastography Accession Number(s): [id number] cc: Corin Doyle MD EXAMINATION: US COMPLETE [...] in OV> 11/28/23 1714 DD/ 1150 TD/TT: Shovel Loader Operator: KIMI us Coirn Doyle MD IMG US PROCEDURES Final Result * (ABNORMAL) Potassium (11/11/2023 8:41 AM EDT) Potassium 3.2(L) 3.3 - 5.1 mmol/L [facility] Blood Venous blood specimen / Unknown 11/11/2023 8:41 AM EDT 11/11/2023 11:40 AM EDT Corin Doyle MD LAB BLOOD ORDERABLES Final Resul t [facility] [address] [place] [phone] * Hepatitis A,B,C Profile (11/11/2023 8:41 AM EDT) Hepatitis A IgM Nonreactive Nonreactive [facility] Comment:IgM antibodies to GUZMÁN V not detected; does not exclude earlyacute or recovered HAV infection. ~Hepatitis B Surface Antibody REACTIVE Nonreactive [facility] Comment:REACTIVE: > 11.99 mI U/mL Hepatitis B Core Antibody Nonreactive Nonreactive [facility] Hepatitis C Antibody Nonreactive Nonreactive [facility] Comment:Antibodies to HCV no t detected; does not exclude early acuteHCV infection. Hepatitis B Surface Ag Negative Negative [facility] Blood Venous blood specimen / Unknown 11/11/2023 8:41 AM EDT 11/11/2023 11:40 AM EDT us Corin Doyle MD LAB BLOOD ORDERABLES Final Resul t [facility] [address] [place] [address] [phone] * (ABNORMAL) CBC auto differential (11/11/2023 8:41 AM EDT) White Blood Count 6.6 4.8 - 10.8 X10*3/uL [facility] Red Blood Count 5.08 4.20 - 5.50 X10*6/uL [facility] Hemoglobin 13.4 12.0 - 16.0 g/dl [facility] Hematocrit 42.1 37.0 - 47.0 % [facility] Mean Corpuscular Volume 82.9 80.0 - 98.0 fL [facility] Mean Corpuscular Hemoglobin 26.4(L) 27.0 - 33.0 pg [facility] Mean Corpuscular HGB Conc 31.8 31.0 - 35.0 g/dl [facility] Red Cell Distribution Width 14.4 11.0 - 16.0 % [facility] Platelet Count 267 160 - 400 X10*3/uL [facility] Mean Platelet Volume 11.0 9.4 - 12.3 fL [facility] Neutrophils Percent Auto 59.9 45 - 73 % [facility] Imm Gran Pct Auto 0.6(H) 0.0 - 0.4 % [facility] Lymphocytes Percent Auto 26.2 20 - 40 % [facility] Monocytes Percent Auto 8.4 2 - 11 % [facility] Eosinophils Percent Auto 3.8 0 - 4 % [facility] Basophils Percent Auto 1.1 0 - 2 % [facility] NRBC Pct Auto 0.0 0.0 - 0.2 /100WBC [facility] Neutrophils Absolute Auto 3.9 2.0 - 8.3 x10*3/uL [facility] Imm Gran Abs Auto 0.04(H) 0.00 - 0.03 X10*3/uL [facility] Lymphocytes Absolute Auto 1.7 1.2 - 4.9 X10*3/uL [facility] Monocytes Absolute Auto 0.6 0.1 - 1.2 X10*3/uL [facility] Eosinophils Absolute Auto 0.3 0.0 - 0.4 X10*3/uL [facility] Basophils Absolute Auto 0.1 0.0 - 0.2 X10*3/uL [facility] NRBC Abs Auto 0.000 0.0 - 0.012 X10*3/uL [facility] Blood Venous blood specimen / Unknown 11/11/2023 8:41 AM EDT 11/11/2023 11:40 AM EDT Corin Doyle MD LAB BLOOD ORDERABLES Final Resul t [facility] [address] [place] [address] [phone] documented in this encounter Visit Diagnoses Diagnosis Elevated liver enzymes- Primary Other nonspecific abnormal serum enzyme levels Breast cancer screening by mammogram Colon cancer screening Special screening for malignant neoplasms, colon Hypokalemia Hypopotassemia documented in this encounter Additional Health Concerns Assessment Noted Time PHQ-9 Depression Total Score: 0 11/24/19 23 3:58 PM EDT documented as of this encounter Care Teams Music Journalist Relationship Specialty Start Date End Date Corin Doyle MD [address] [place] [address] PCP - General Family Medicine 07/18/18 Sam Peace, PharmD [address] [place] [address] Pharmacist Pharmacy 03/06/25 Danay Carmen Employment OfficerMelter Assistant 12/09/23 Danay Carmen Employment OfficerMelter Assistant 08/27/24 documented as of this encounter
--- OUTSIDE RECORDS SUMMARY | 2025-04-03 15:57 | XMS_ITS | Encounter Summary ---
Author Organization [employer] Address [address] 7t [place] [address] Care Team Providers Care Twist Tester Name Role Phone Corin Doyle MD Primary Care Provider [phone] Sam Peace PharmD Unavailable [phone] Encounter Details Date Type Department Care Team [...] 2:30 PM EDT Office Visit [facility] [address] [place] [address] Corin Doyle MD [address] [place] [address] 07/01/2025 3:30 PM EST Medication Management [facility] [address] [place] [address] Sam Peace, PharmD [address] [place] [address] documented as of this encounter Visit Diagnoses Not on filedocumented in this encounter Additional Health Concerns Assessment Noted Time PHQ-9 Depression Total Score: 0 08/14/19 3:31 PM EST documented as of this encounter Care Teams Twist Tester Relationship Specialty Start Date End Date Corin Doyle MD [address] [place] [address] PCP - General Family Medicine 07/18/18 Sam Peace, PharmD [address] [place] [address] Pharmacist Pharmacy 03/06/25 Danay Carmen Sales CoordinatorJackscrew Worker 12/09/23 Danay Carmen Sales CoordinatorJackscrew Worker 08/27/24 documented as of this encounter
--- OUTSIDE RECORDS SUMMARY | 2025-04-03 15:57 | XMS_ITS | Encounter Summary ---
Author Organization [employer] Address [address] [address] [place] [address] Care Team Providers Care Publishing Agent Name Role Phone Corin Doyle MD Primary Care Provider [phone] Sam Peace PharmD Unavailable [phone] Reason for Visit * Reason Onset Date Comments Nurse Triage 05/25/2024 Encounter Details Date Type Department Care Team ([facility] st Contact Info) Description 05/25/2024 Telephone [facility] MEDICINE [address] [place] [address] Corin Doyle MD [address] [place] [address] Nurse Triage Social History Tobacco Use Types [...] theER now. RN advises pt to call [facility] back when she is discharged in order [...] Description 05/06/2025 2:30 PM EDT Office Visit [facility] MEDICINE [address] [place] [address] [phone] Corin Doyle MD [address] [place] [address] 07/01/2025 3:30 PM EST Medication Management [facility] MEDICINE [address] [place] [address] Sam ePace, PharmD [address] [place] [address] documented as of this encounter Visit Diagnoses Not on filedocumented in this encounter Additional Health Concerns Assessment Noted Time PHQ-9 Depression Total Score: 0 11/24/19 23 3:58 PM EDT documented as of this encounter Care Teams Publishing Agent Relationship Specialty Start Date End Date Corin Doyle MD [address] [place] [address] PCP - General Family Medicine 07/18/18 Sam Peace, PharmD [address] [place] [address] Pharmacist Pharmacy 03/06/25 Danay Carmen Mud Jack OperatorCardiac Cath Technician 12/09/23 Danay Carmen Mud Jack OperatorCardiac Cath Technician 08/27/24 documented as of this encounter
--- OUTSIDE RECORDS SUMMARY | 2025-04-03 15:57 | XMS_ITS | Encounter Summary ---
Author Organization [employer] Address [address] 7[address] [place] [address] Care Team Providers Care Epic Ambulatory Specialists Name Role Phone Corin Doyle MD Primary Care Provider [phone] Sam Peace PharmD Unavailable [phone] Encounter Details Date Type Department Care Team ([facility] st Contact Info) Description 05/04/2024 Orders Only [facility] MEDICINE [address] [place], [place] [phone] Corin Doyle MD [address] [place] [address] Primary hypertension (Primary Dx); Acquired hypothyroidism; Hypokalemia; [...] Description 05/06/2025 2:30 PM EDT Office Visit [address] [address] Corin Doyle MD [address] [place] [address] 07/01/2025 3:30 PM EST Medication Management [address] [address] Sam Peace, PharmD [address] [place] [address] documented as of this encounter Procedures Procedure [...] 4:05 PM EST) Creatinine, Urine 312.90 mg/dL [facility] Microalbumin Urine 15.0 mg/L [facility] Microalbum Creatinine Ratio Ur 4.7 <30 ug/mg cr [facility] Comment:Albumin/Creatinine R atio Reference Ranges: Normal: < 30 ug/mg creatinine Microalbuminuria: 30 - 300 ug/mg creatinineClinical Albuminuria: > 300 ug/mg creatinine Urine 08/14/2024 4:05 PM EST 08/14/2024 5:43 PM EST us Corin Doyle MD LAB URINE ORDERABLES Final Resul t [facility] [address] [place] [phone] * Hemoglobin A1c (08/14/2024 4:05 PM EST) Hemoglobin A1c 5.1 <6.0 % [facility] Comment:Hemoglobin A1C Refer ence Range Adults: 4.8 - 6.0 % Non diabetic: < 6.0 % Goal: < 7.0 %Additional Action Suggested: > 8.0 %Note: Hemoglobin A1c results are invalid for patients with abnormal amounts of HbF. Blood transfusions may impact the HbA1c concentration in the patient sample. Estimated Average Glucose 100 mg/dL [facility] Comment:eAG = Estimated ave rage glucose which is %A1C expressed asaverage glucose, using the formula of the M1U-NxkerluKlsbecw Glucose study (ADAG), Diabetes Care, Vol.31,#8,Feb. 2007 Blood Venous blood specimen / Unknown 08/14/2024 4:05 PM EST 08/14/2024 5:33 PM EST Corin Doyle MD LAB BLOOD ORDERABLES Final Resul t Performing Organization Address [facility] Co de Phone Number [facility] [address] [place] [phone] * Lipid Panel with Reflex to Direct LDL (08/14/2024 4:05 PM EST) Triglycerides 114 <150 mg/dL [facility] Comment:Desirable Triglyceri de: less than 150 mg/dLBorderline High Triglyceride 150-199 mg/dLHigh Triglyceride: 200-499 mg/dLVery High Triglyceride: greater than or equal to 5OO mg/dL Cholesterol 146 <200 mg/dL [facility] Comment:Desirable Cholestero l: less than 200 mg/dLBorderline High Cholesterol: 200-239 mg/dLHigh Cholesterol: greater than 239 mg/dL LDL Cholesterol Calculated 83 <100 mg/dL [facility] Comment:Desirable LDL: less than 100 mg/dLNear Optimal/Above Optimal LDL: 110- 129 mg/dLBorderline High LDL: 130-159 mg/dLHigh LDL: 160-189 mg/dLVery High LDL: greater than or equal to 190 mg/dL HDL Cholesterol 41 >40 mg/dL [facility] Comment:Desirable HDL: great er than 40 mg/dL Note: This HDL assay may give artificially low results in patients with liver disease. Blood 08/14/2024 4:05 PM EST 08/14/2024 5:33 PM EST Corin Doyle MD LAB BLOOD ORDERABLES Final Resul t Performing Organization Address [facility] Co de Phone Number [facility] [address] [place] [phone] * Magnesium (08/14/2024 4:05 PM EST) Magnesium 2.2 1.6 - 2.6 mg/dL [facility] Blood Venous blood specimen / Unknown 08/14/2024 4:05 PM EST 08/14/2024 5:33 PM EST Corin Doyle MD LAB BLOOD ORDERABLES Final Resul t Performing Organization Address [facility] Co de Phone Number [facility] [address] [place] [phone] * Uric acid (08/14/2024 4:05 PM EST) Pathologist [facility] Uric Acid 4.5 2.4 - 5.7 mg/dL [facility] Blood Venous blood specimen / Unknown 08/14/2024 4:05 PM EST 08/14/2024 5:33 PM EST Corin Doyle MD LAB BLOOD ORDERABLES Final Resul t Performing Organization Address [facility] de Phone Number [facility] [address] [place] [phone] * TSH with Reflex to Free T4 (08/14/2024 4:05 PM EST) Pathologist [facility] TSH reflex Free T4 3.48 0.32 - 4.0 uIU/mL [facility] Blood 08/14/2024 4:05 PM EST 08/14/2024 5:33 PM EST Corin Doyle MD LAB BLOOD ORDERABLES Final Resul t Performing Organization Address [facility] Phone Number [facility] [address] [place] [phone] * (ABNORMAL) Comprehensive Metabolic Panel (08/14/2024 4:05 PM EST) Pathologist [facility] Sodium 143 135 - 145 mmol/L [facility] Potassium 3.1(L) 3.3 - 5.1 mmol/L [facility] Chloride 106 96 - 108 mmol/L [facility] Carbon Dioxide 30(H) 22 - 29 mmol/L [facility] Anion Gap 10(L) 12 - 20 [facility] Urea Nitrogen (BUN) 14 9 - 16 mg/dL [facility] Creatinine, Serum 0.70 0.5 - 1.4 mg/dL [facility] Estimated Glomerular Filt Rate >60 [facility] Comment:Chronic Kidney Disea se: Estimated GFR < 60 mL/min/1.49g9Xcjejk Kidney Disease: Estimated GFR < 15 mL/min/1.73m2 Glucose 72 60 - 115 mg/dL [facility] Calcium 9.2 8.4 - 10.2 mg/dL [facility] Bilirubin, Total 0.2 0.0 - 1.0 mg/dL [facility] Aspartate Amino Transferase 21 5 - 31 U/L [facility] Alanine Aminotransferase 24 0 - 31 U/L [facility] Total Protein 7.7 6.5 - 8.0 g/dL [facility] Albumin Level 4.1 3.5 - 5.0 g/dL [facility] Alkaline Phosphatase 109 39 - 117 U/L [facility] Blood Venous blood specimen / Unknown 08/14/2024 4:05 PM EST 08/14/2024 5:33 PM EST us Corin Doyle MD LAB BLOOD ORDERABLES Final Resul t [facility] [address] [place] [address] [phone] documented in this encounter Visit Diagnoses [...] documented as of this encounter Care Teams Epic Ambulatory Specialists Relationship Specialty Start Date End Date Corin Doyle MD [address] [place] [address] PCP - General Family Medicine 07/18/18 Sam Peace, PharmD [address] [place] [address] Pharmacist Pharmacy 03/06/25 Danay Carmen Strategic Development ManagerJump Iron Machine Presser 12/09/23 Danay Carmen Strategic Development ManagerJump Iron Machine Presser 08/27/24 documented as of this encounter
--- OUTSIDE RECORDS SUMMARY | 2025-04-03 15:57 | XMS_ITS | Encounter Summary ---
Author Organization [employer] Address [address] [place] [address] Care Team Providers Care Bindery Library Technical Assistant Name Role Phone Corin Doyle MD Primary Care Provider Sam Peace PharmD Unavailable [phone] Encounter Details Date Type Department Care Team ([facility] st Contact Info) Description 01/01/2025 Orders Only [facility] MEDICINE [address] [place], [place] [phone] Corin Doyle MD [address] [place] [address] Social History Tobacco Use Types Packs/Day Years [...] Description 05/06/2025 2:30 PM EDT Office Visit [facility] MEDICINE [address] [place] [address] Corin Doyle MD [address] [place] [address] 07/01/2025 3:30 PM EST Medication Management [address] [address] Sam Peace, Yulissa [address] [place] [address] documented as of this encounter Visit Diagnoses Not on filedocumented in this encounter Additional Health Concerns Assessment Noted Time PHQ-9 Depression Total Score: 0 08/14/19 25 3:31 PM EST documented as of this encounter Care Teams Bindery Library Technical Assistant Relationship Specialty Start Date End Date Corin Doyle MD [address] [place] [address] PCP - General Family Medicine 07/18/18 Sam Peace, PharmD [address] [place] [address] [phone] Pharmacist Pharmacy 03/06/25 Danay Carmen Lace FinisherBlack Oxide Operator 12/09/23 Danay Carmen Lace FinisherBlack Oxide Operator 08/27/24 documented as of this encounter
--- OUTSIDE RECORDS SUMMARY | 2025-04-03 15:57 | XMS_ITS | Encounter Summary ---
Author Organization [employer] Address [address] [place] [address] Care Team Providers Care Cleat Blanker Name Role Phone Corin Doyle MD Primary Care Provider [phone] Sam Peace PharmD Unavailable [phone] Reason for Visit * Reason Onset Date Comments Med Refill 07/12/2024 Encounter Details Date Type Department Care Team (Late st Contact Info) Description 07/12/2024 Refill [facility]INE [address] [place] [address] Corin Doyle MD [address] [place] [address] Social History Tobacco Use Types Packs/Day Years [...] Description 05/06/2025 2:30 PM EDT Office Visit [facility] [address] [place] [address] Corin Doyle MD [address] [place] [address] 07/01/2025 3:30 PM EST Medication Management [facility] [address] [place] [address] Sam Peace, PharmD [address] [place] [address] documented as of this encounter Visit Diagnoses Not on filedocumented in this encounter Additional Health Concerns Assessment Noted Time PHQ-9 Depression Total Score: 0 11/24/19 23 3:58 PM EDT documented as of this encounter Care Teams Cleat Blanker Relationship Specialty Start Date End Date Corin Doyle MD [address] [place] [address] PCP - General Family Medicine 07/18/18 Sam Peace, PharmD [address] [place] [address] Pharmacist Pharmacy 03/06/25 Danay Carmen Patient Registration RepBookmaker'S Clerk 12/09/23 Danay Carmen Patient Registration RepBookmaker'S Clerk 08/27/24 documented as of this encounter
--- OUTSIDE RECORDS SUMMARY | 2025-04-03 15:58 | XMS_ITS | Encounter Summary ---
Author Organization [employer] Address 75 [facility] 7t [place] [address] Care Team Providers Care Bottom Buffer Name Role Phone Corin Doyle MD Primary Care Provider [phone] Sam Peace PharmD Unavailable [phone] Encounter Details Date Type Department Care Team (Late Contact Info) Description 06/28/2022 Orders Only [facility] MED & PEDS [address] [place] [address] Belgica Lanza RN Social History Tobacco Use [...] Upcoming Encounters Date Type Department Care Team ([facility] Contact Info) Description 05/06/2025 2:30 PM EDT Office Visit [facility] MEDICINE [address] [place] [address] Corin Doyle MD [address] [place] [address] [phone] 07/01/2025 3:30 PM EST Medication Management [facility] [address] [place] [address] Sam Peace, PharmD [address] [place] [address] [phone] documented as of this encounter Visit Diagnoses Not on filedocumented in this encounter Care Teams Bottom Buffer Relationship Specialty Start Date End Date Corin Doyle MD [address] [place], [place] [phone] PCP - General Family Medicine 07/18/18 Sam Peace, Yulissa [address] [place] [address] Pharmacist Pharmacy 03/06/25 Danay Carmen Bank Sales And Service ManagerAutistic Teacher 12/09/23 Danay Carmen Bank Sales And Service ManagerAutistic Teacher 08/27/24 documented as of this encounter
--- OUTSIDE RECORDS SUMMARY | 2025-04-03 15:58 | XMS_ITS | Encounter Summary ---
Author Organization [employer] Address 75 [facility] 7t [place] [address] Care Team Providers Care Sky Line Yarder Name Role Phone Corin Doyle MD Primary Care Provider [phone] Sam Peace PharmD Unavailable [phone] Reason for Visit * Reason Onset Date Comments Med Refill 03/13/2025 Encounter Details Date Type Department Care Team (Late st Contact Info) Description 03/13/2025 Refill [facility]INE [address] [place] [address] Corin Doyle MD 230 [place] [address] Social History Tobacco Use Types Packs/Day Years [...] PM EDT Office Visit [facility] [address] [place] [address] Corin Doyle MD [address] [place] [address] 07/01/2025 3:30 PM EST Medication Management [facility] [address] [place] [address] Sam Peace PharmD [address] [place] [address] documented as of this encounter Visit Diagnoses Not on filedocumented in this encounter Additional Health Concerns Assessment Noted Time PHQ-9 Depression Total Score: 0 08/14/19 25 3:31 PM EST documented as of this encounter Care Teams Sky Line Yarder Relationship Specialty Start Date End Date Corin Doyle MD [address] [place] [address] PCP - General Family Medicine 07/18/18 Sam Peace, ConchisD [address] [place] [address], [place] [address] Pharmacist Pharmacy 03/06/25 Danay Carmen Dry Cleaning Machine Operator HelperHigh Pressure Cleaner 12/09/23 Danay Carmen Dry Cleaning Machine Operator HelperHigh Pressure Cleaner 08/27/24 documented as of this encounter
--- OUTSIDE RECORDS SUMMARY | 2025-04-03 15:58 | XMS_ITS | Encounter Summary ---
Author Organization [employer] Address [address] [facility] [address] 7t [place] [address] Care Team Providers Care Laundry Aid Name Role Phone Corin Doyle MD Primary Care Provider [phone] Sam Peace PharmD Unavailable [phone] Reason for Visit * Reason Onset Date Comments Letter Request 07/05/2022 I called jodi comer the pt's request for a letter for housing. She stated that she is requesting an apartment on a first floor, or one with elevator accessibility, due to her medical conditions. Encounter Details Date Type Department Care Team ([facility] Contact Info) Description 07/05/2022 Telephone [facility] CHC MED & PEDS [address] [place], [place] [phone] Corin Doyle MD 230 [place] [address] Letter Request (I called regarding the pt's [...] Upcoming Encounters Date Type Department Care Team ([facility] Contact Info) Description 05/06/2025 2:30 PM EDT Office Visit [facility] MEDICINE [address] [place] [address] Corin Doyle MD [facility] [place], [place] [phone] 07/01/2025 3:30 PM EST Medication Management [facility] MEDICINE [address] [place] [address] Sam Peace, PharmSol [address] [place] [address] documented as of this encounter Visit Diagnoses Not on filedocumented in this encounter Care Teams Laundry Aid Relationship Specialty Start Date End Date Corin Doyle MD [address] [place] [address] [phone] PCP - General Family Medicine 07/18/18 Sam Peace, PharmD [address] [place] [address] [phone] Pharmacist Pharmacy 03/06/25 Danay Carmen President Financial InstitutionRadio Interference Trouble Shooter 12/09/23 Danay Carmen President Financial InstitutionRadio Interference Trouble Shooter 08/27/24 documented as of this encounter
--- OUTSIDE RECORDS SUMMARY | 2025-04-03 15:58 | XMS_ITS | Encounter Summary ---
Author Organization [employer] Address [address] [facility] [address] 7t [place] [address] Care Team Providers Care Flame Cutting Machine Operator Helper Name Role Phone Corin Doyle MD Primary Care Provider [phone] Sam Peace PharmD Unavailable [phone] Encounter Details Date Type Department Care Team ([facility] st Contact Info) Description 03/01/2025 Orders Only [facility] MEDICINE [address] [place], [place] [phone] Corin Doyle MD [address] [place] [address] Hypokalemia (Primary Dx) Social History Tobacco Use [...] Description 05/06/2025 2:30 PM EDT Office Visit [facility] MEDICINE [address] [place] [address] Corin Doyle MD [address] [place] [address] 07/01/2025 3:30 PM EST Medication Management [address] [address] Sam Peace, PharmD [address] [place] [address] documented as of this encounter Procedures Procedure Name Priority Date/Time Associated Diagnosis Comments MAGNESIUM Routine 04/01/2025 3:26 PM EDT Hypokalemia BASIC METABOLIC PANEL Routine 04/01/2025 3:26 PM EDT Hypokalemia documented in this encounter Results * Magnesium (04/01/2025 3:26 PM EDT) Magnesium 2.1 1.6 - 2.6 mg/dL [facility] Blood Venous blood specimen / Unknown 04/01/2025 3:26 PM EDT 04/01/2025 4:08 PM EDT Corin Doyle MD LAB BLOOD ORDERABLES Final Resul t Performing Organization Address [facility] Co de Phone Number [facility] [address] [place] [address] [phone] * (ABNORMAL) Basic Metabolic Panel (04/01/2025 3:26 PM EDT) Sodium 144 135 - 145 mmol/L [facility] Potassium 3.6 3.3 - 5.1 mmol/L [facility] Chloride 109(H) 96 - 108 mmol/L [facility] Carbon Dioxide 29 22 - 29 mmol/L [facility] Anion Gap 10(L) 12 - 20 [facility] Urea Nitrogen (BUN) 15 9 - 16 mg/dL [facility] Creatinine, Serum 0.81 0.5 - 1.4 mg/dL [facility] Estimated Glomerular Filt Rate >60 [facility] Comment:Chronic Kidney Disea se: Estimated GFR < 60 mL/min/1.35d9Jvckfm Kidney Disease: Estimated GFR < 15 mL/min/1.73m2 Glucose 87 60 - 115 mg/dL [facility] Calcium 8.9 8.4 - 10.2 mg/dL [facility] Blood Venous blood specimen / Unknown 04/01/2025 3:26 PM EDT 04/01/2025 4:08 PM EDT us Corin Doyle MD LAB BLOOD ORDERABLES Final Resul t Performing Organization Address City/[facility]/ZIP Co de Phone Number [facility] [address] [place] [address] [phone] documented in this encounter Visit Diagnoses Diagnosis Hypokalemia- Primary Hypopotassemia documented in this encounter Additional Health Concerns Assessment Noted Time PHQ-9 Depression Total Score: 0 08/14/19 3:31 PM EST documented as of this encounter Care Teams Flame Cutting Machine Operator Helper Relationship Specialty Start Date End Date Corin Doyle MD [address] [place] [address] PCP - General Family Medicine 07/18/18 Sam Peace, PharmD [address] [place] [address] Pharmacist Pharmacy 03/06/25 Danay Carmen Sap BasisSenior Web Services Developer 12/09/23 Danay Carmen Sap BasisSenior Web Services Developer 08/27/24 documented as of this encounter
--- OUTSIDE RECORDS SUMMARY | 2025-04-03 15:58 | XMS_ITS | Encounter Summary ---
Author Organization [employer] Address 75 [facility] 7t [place] [address] Care Team Providers Care Junior Analyst Name Role Phone Corin Doyle MD Primary Care Provider [phone] Sam Peace PharmD Unavailable Reason for Visit * Reason Onset Date Comments Med Refill 03/20/2025 Encounter Details Date Type Department Care Team (Late st Contact Info) Description 03/20/2025 Refill [facility] [address] [place] [address] Corin Doyle MD 230 [place] [address] Social History Tobacco Use Types Packs/Day Years [...] PM EDT Office Visit [facility] [address] [place] [address] Corin Doyle MD [address] [place] [address] 07/01/2025 3:30 PM EST Medication Management [facility] [address] [place] [address] Sam Peace, PharmD [address] [place] [address] documented as of this encounter Visit Diagnoses Not on filedocumented in this encounter Additional Health Concerns Assessment Noted Time PHQ-9 Depression Total Score: 0 08/14/19 25 3:31 PM EST documented as of this encounter Care Teams Junior Analyst Relationship Specialty Start Date End Date Corin Doyle MD [address] [place] [address] PCP - General Family Medicine 07/18/18 Sam Peace, ConchisD [address] [place] [address] Pharmacist Pharmacy 03/06/25 Danay Carmen Director Food SafetyStore Receiving Specialist 12/09/23 Danay Carmen Director Food SafetyStore Receiving Specialist 08/27/24 documented as of this encounter
--- OUTSIDE RECORDS SUMMARY | 2025-04-03 15:58 | XMS_ITS | Encounter Summary ---
Author Organization [employer] Address 75 [facility] 7t [place] [address] Care Team Providers Care Front Desk Manager Name Role Phone Corin Doyle MD Primary Care Provider [phone] Sam Peace PharmD Unavailable [phone] Reason for Visit * Reason Onset Date Comments Referral 01/26/2023 Encounter Details Date Type Department Care Team ([facility] st Contact Info) Description 01/26/2023 Telephone [facility] MEDICINE [address] [place] [address] Corin Doyle MD 230 [place] [address] Referral Social History Tobacco Use Types Packs/Day [...] - 01/26/2023 3:24 PM EDT [facility] requesting a referral for therapy. States pt is having depression/anxiety. Pt is also hearing voices and seeing a man documented in this encounter Plan of Treatment Upcoming Encounters Date Type Department Care Team (Late st Contact Info) Description 05/06/2025 2:30 PM EDT Office Visit [facility] MEDICINE [address] [place] [address] Corin Doyle MD [address] [place] [address] 07/01/2025 3:30 PM EST Medication Management [facility] MEDICINE [address] [place] [address] Sam Peace, PharmD [address] [place] [address] documented as of this encounter Visit Diagnoses Not on filedocumented in this encounter Additional Health Concerns Assessment Noted Time PHQ-9 Depression Total Score: 0 11/24/19 23 3:58 PM EDT documented as of this encounter Care Teams Front Desk Manager Relationship Specialty Start Date End Date Corin Doyle MD [address] [place] [address] PCP - General Family Medicine 07/18/18 Sam Peace, PharmD [address] [place] [address] Pharmacist Pharmacy 03/06/25 Danay Carmen Campus ManagerInstitution Director 12/09/23 Danay Carmen Campus ManagerInstitution Director 08/27/24 documented as of this encounter
--- OUTSIDE RECORDS SUMMARY | 2025-04-03 15:58 | XMS_ITS | Encounter Summary ---
Author Organization [employer] Address [address] [facility] [address] 7t [place] [address] Care Team Providers Care Critical Care Nurse Practitioner Name Role Phone Corin Doyle MD Primary Care Provider [phone] Sam Peace PharmD Unavailable [phone] Reason for Visit * Reason Onset Date Comments triage 10/28/2022 Encounter Details Date Type Department Care Team ([facility] st Contact Info) Description 10/28/2022 Telephone [facility] MEDICINE 230 [place] [address] Corin Doyle MD 230 [place] [address] triage Social History Tobacco Use Types Packs/Day [...] 11:47 AM EDT Triage call with [employer] Production Coordinator ID [id number] Pt reports burning with urination, bladder pressure, slight bilateral flank pain and frequency. Pt denies bad odor, fever. Pt is advised to come to [facility] to be seen today [...] Description 05/06/2025 2:30 PM EDT Office Visit [facility] MEDICINE [address] [place] [address] Corin Doyle MD [address] [place] [address] 07/01/2025 3:30 PM EST Medication Management [facility] MEDICINE [address] [place] [address] Sam Peace, ConchisD [address] [place] [address] documented as of this encounter Visit Diagnoses Not on filedocumented in this encounter Care Teams Critical Care Nurse Practitioner Relationship Specialty Start Date End Date Corin Doyle MD [address] [place] [address] PCP - General Family Medicine 07/18/18 Sam Peace, PharmD [address] [place] [address] [place] [address] Pharmacist Pharmacy 03/06/25 Danay Carmen Communications InstructorDeputy Sheriff Generalist/Bailiff 12/09/23 Danay Carmen Communications InstructorDeputy Sheriff Generalist/Bailiff 08/27/24 documented as of this encounter
--- OUTSIDE RECORDS SUMMARY | 2025-04-03 15:58 | XMS_ITS | Encounter Summary ---
Author Organization [employer] Address [address] [facility] 7t [place] [address] Care Team Providers Care Chlorine Operator Name Role Phone Corin Doyle MD Primary Care Provider [phone] Sam Peace PharmD Unavailable [phone] Reason for Visit * Reason Comments Med Refill Encounter Details Date Type Department Care Team ([facility] st Contact Info) Description 03/19/2025 Refill [facility] MEDICINE 230 [place], [place] [phone] Corin Doyle MD [address] [place] [address] Social History Tobacco Use Types Packs/Day Years [...] 05/06/2025 2:30 PM EDT Office Visit [facility] MEDICINE [address] [place] [address] Corin Doyle MD [address] [place] [address] 07/01/2025 3:30 PM EST Medication Management [address] [address] Sam Peace, Yulissa [address] [place] [address] documented as of this encounter Visit Diagnoses Not on filedocumented in this encounter Additional Health Concerns Assessment Noted Time PHQ-9 Depression Total Score: 0 08/14/19 25 3:31 PM EST documented as of this encounter Care Teams Chlorine Operator Relationship Specialty Start Date End Date Corin Doyle MD [address] [place] [address] PCP - General Family Medicine 07/18/18 Sam Peace, ConchisD [address] [place] [address] Pharmacist Pharmacy 03/06/25 Danay Carmen Head Of AdvertisingPurchasing Supervisor 12/09/23 Danay Carmen Head Of AdvertisingPurchasing Supervisor 08/27/24 documented as of this encounter
--- OUTSIDE RECORDS SUMMARY | 2025-04-03 15:58 | XMS_ITS | Encounter Summary ---
Author Organization [employer] Address [address] [facility] [address] 7t [place] [address] Care Team Providers Care Sound Technician Name Role Phone Corin Doyle MD Primary Care Provider [phone] Sam Peace PharmD Unavailable [phone] Encounter Details Date Type Department Care Team ([facility] Contact Info) Description 03/01/2025 Results Follow-Up [facility] MEDICINE 230 [place] [address] Corin Doyle MD 230 [place] [address] Basic Metabolic Panel Social History Tobacco Use [...] [facility] MEDICINE [address] [place] [address] Corin Doyle MD [address] [place] [address] 07/01/2025 3:30 PM EST Medication Management [address] [address] Sam Peace PharmD [address] [place] [address] documented as of this encounter Visit Diagnoses Not on filedocumented in this encounter Additional Health Concerns Assessment Noted Time PHQ-9 Depression Total Score: 0 08/14/19 25 3:31 PM EST documented as of this encounter Care Teams Sound Technician Relationship Specialty Start Date End Date Corin Doyle MD [address] [place] [address] PCP - General Family Medicine 07/18/18 Sam Peace, PharmD [address] [place] [address] Pharmacist Pharmacy 03/06/25 Danay Carmen External Grinder ToolMedical Nurse 12/09/23 Danay Carmen External Grinder ToolMedical Nurse 08/27/24 documented as of this encounter
--- OUTSIDE RECORDS SUMMARY | 2025-04-03 15:58 | XMS_ITS | Encounter Summary ---
Author Organization [employer] Address 75 [facility] 7t [place] [address] Care Team Providers Care Psychiatric Nursing Assistant Name Role Phone Corin Doyle MD Primary Care Provider [phone] Sam Peace PharmD Unavailable [phone] Reason for Visit * Reason Comments Med Refill Encounter Details Date Type Department Care Team ([facility] st Contact Info) Description 12/14/2022 Refill [facility] MED[facility]INE 230 [place], [place] [phone] Corin Doyle MD 230 [place], [place] [phone] LLQ pain Social History Tobacco Use Types [...] 2:30 PM EDT Office Visit [facility] MEDICINE [address] [place] [address] Corin Doyle MD [address] [place] [address] 07/01/2025 3:30 PM EST Medication Management [facility] [address] [place] [address] Sam Peace, PharmD [address] [place] [address] documented as of this encounter Visit Diagnoses Diagnosis LLQ pain Abdominal pain, left lower quadrant documented in this encounter Additional Health Concerns Assessment Noted Time PHQ-9 Depression Total Score: 0 11/24/19 23 3:58 PM EDT documented as of this encounter Care Teams Psychiatric Nursing Assistant Relationship Specialty Start Date End Date Corin Doyle MD [address] [place] [address] PCP - General Family Medicine 07/18/18 Sam Peace, PharmD [address] [place] [address] [phone] Pharmacist Pharmacy 03/06/25 Danay Carmen Warehouse DirectorRefrigeration Manager 12/09/23 Danay Carmen Warehouse DirectorRefrigeration Manager 08/27/24 documented as of this encounter
--- OUTSIDE RECORDS SUMMARY | 2025-04-03 15:58 | XMS_ITS | Encounter Summary ---
Author Organization [employer] [facility] Address [address] [place] [address] 7 [place] [address] Care Team Providers Care Mannequin Decorator Name Role Phone Corin Doyle MD Primary Care Provider [phone] Sam Peace PharmD Unavailable [phone] Encounter Details Date Type Department Care Team (Latest Contact Info) Description 11/25/2021 Abstract [facility] CONVERSIONS Dental, Provider, DDS Social History [...] Description 05/06/2025 2:30 PM EDT Office Visit [facility] MEDICINE [address] [place] [address] Corin Doyle MD 230 [place] [address] 07/01/2025 3:30 PM EST Medication Management [facility] MEDICINE [address] [place] [address] Sam Peace, PharmD [address] [place] [address] documented as of this encounter Visit Diagnoses Not on filedocumented in this encounter Care Teams Mannequin Decorator Relationship Specialty Start Date End Date Corin Doyle MD [address] [place] [address] PCP - General Family Medicine 07/18/18 Sam Peace, PharmD [address] [place] [address] Pharmacist Pharmacy 03/06/25 Danay Carmen Packer Operator AutomaticProduction Assistant 12/09/23 Danay Carmen Packer Operator AutomaticProduction Assistant 08/27/24 documented as of this encounter
== END 2025-04-02 15:05 | disposition home or self-care (01) ==
LOC: HO.LNP 15:04
PROVIDERS: Visit Provider Advanced Practice Midwife
DX: Z12.4 Encounter for screening for malignant neoplasm of cervix (principal); Z11.51 Encounter for screening for human papillomavirus (HPV)
CPT/HCPCS: 87626; 88175

== ENCOUNTER 2025-04-05 13:35 | Outpatient (REF) | payer MEDICAID, SELFPAY ==
--- OUTSIDE RECORDS SUMMARY | 2025-04-02 14:45 | XMS_ITS | Encounter Summary ---
Author Organization [employer] Address [address] [place] [address] 7t [place] [address] Care Team Providers Care Internet Security Specialist Name Role Phone Corin Doyle MD Primary Care Provider [phone] Sam Peace PharmD Unavailable [phone] Reason for Referral * Imaging (Urgent) - Authorized Specialty Diagnoses / Procedures Referred By Contac t Referred To Contact Radiology Diagnoses Unspecified dyspareunia Procedures Us Pelvis complete Karli Wells CNM [address] [place] [address] Phone: tel: fax: [address] Phone: tel: fax: Referral ID Status Reason Start Date Expiration Date V isits Requested Visits Authorized [id number] Authorized 04/02/2025 04/02/2026 1 1 * Imaging (Urgent) - Authorized Specialty Diagnoses / Procedures Referred By Contac t Referred To Contact Radiology Diagnoses Unspecified dyspareunia Procedures US Pelvis Transvaginal Karli Wells CNM [address] [place] [address] Phone: tel: fax: Referral ID Status Reason Start Date Expiration Date V isits Requested Visits Authorized [id number] Authorized 04/02/2025 04/02/2026 1 1 * Imaging (Urgent) - Authorized Specialty Diagnoses / Procedures Referred By Contac t Referred To Contact Radiology Diagnoses Breast pain, right Breast cyst, left Procedures BI Mammogram Diagnostic Tomosynthesis Bilateral Karli Wells POORNIMA [address] [place] [address] Phone: tel: fax: [address] Phone: tel: fax: Referral ID Status Reason Start Date Expiration Date V isits Requested Visits Authorized [id number] Authorized 04/02/2025 04/02/2026 1 1 * Imaging (Routine) - Authorized Specialty Diagnoses / Procedures Referred By Contac t Referred To Contact Radiology Diagnoses Breast cyst, left Procedures BI US Breast Limited Left Karli Wells, POORNIMA [address] [place] [address] Phone: tel: fax: [address] Phone: tel: fax: Referral ID Status Reason Start Date Expiration Date V isits Requested Visits Authorized [id number] Authorized 04/02/2025 04/02/2026 1 1 * Imaging (Urgent) - Authorized Specialty Diagnoses / Procedures Referred By Contac t Referred To Contact Radiology Diagnoses Breast pain, right Procedures BI US Breast Limited Right Karli Wells CNM [address] [place] [address] Phone: tel: fax: [address] Phone: tel: fax: Referral ID Status Reason Start Date Expiration Date V isits Requested Visits Authorized [id number] Authorized 04/02/2025 04/02/2026 1 1 Reason for Visit * Reason Comments pap Encounter Details Date Type Department Care Team (Latest Contact Info) Description 04/02/2025 2:45 PM EDT Procedure Visit [facility] [address] [place] [address] Karli Wells CNM [address] [place], [place] [phone] Cervical cancer screening (Primary Dx); Breast pain, right; Unspecified dyspareunia; Breast cyst, left; Cervical polyp; Perimenopause Social History Tobacco Use Types Packs/Day Years [...] Q2 Not on file 08/14/2024 Comments Unknown Intention Date Recorded No desire to become (finding) 0 04/02/2025 Sex and Gender Information Value Date Recorded Sex Assigned at Female 05/17/2022 10:16 AM EDT Legal Sex Female 10:16 AM EDT Gender Identity Female 05/17/2022 10:16 AM EDT Sexual Orientation Straight 05/17/2022 10 :16 AM EDT documented as of this encounter Last Filed Vital Signs Vital Sign Reading Time Taken Comments Blood Pressure 120/78 04/02/2025 2:50 PM EDT Pulse 70 04/02/2025 2:50 PM EDT Temperature 36.8 C (98.3 F) 04/02/2025 2:50 PM EDT Respiratory Rate 14 04/02/2025 2:50 PM EDT Oxygen Saturation 98% 04/02/2025 2:50 PM EDT Inhaled Oxygen Concentration - - Weight 93.6 kg (206 lb 6.4 oz) 04/02/2025 2:50 P M EDT Height - - Body Mass Index 37.75 10/19/2024 4:05 PM EDT documented in this encounter Progress Notes * Karli Wells CNM - 04/02/2025 2:45 PM EDT Subjective Patient ID: Janelle León is a 50 y.o. female who presents for pap No pap on file, unsure of last pap. Mammogram with ultrasound BIRADS 2, cat c 01/2024, left breast cyst. Has tubal ligation. 1 AMAB partner x 19y, no safety concerns. LMP 6 m ago. Mild vasomotor symptoms. Notes right breast pain and possible mass x 5 days. No skin changes. Notes pelvic pain with sex x 1 month. No other vaginal or urinary symptoms. Would like breast and pelvic exam today. Review of Systems Genitourinary: Positive for dyspareunia. Negative for dysuria, frequency, genital sores, hematuria,menstrual problem, pelvic pain, urgency, vaginal bleeding, vaginal discharge and vaginal pain. No abnormal pap, no abnormal bleeding, no nipple discharge Objective BP 120/78 (BP Location: Left arm, Patient Position: Sitting, BP Cuff Size: Adult) Pulse 70 Temp98.3 ??F (36.8 ??C) (Oral) Resp 14 Wt 206 lb 6.4 oz (93.6 kg) LMP 09/15/2024 (Approximate) SpO2 98% BMI 37.75 kg/m?? Physical Exam Application Security Developer present: declines athletic trainer. Constitutional: Appearance: Normal appearance. Chest: Breasts: Right: Mass and tenderness present. No swelling, bleeding, inverted nipple, nipple discharge or skin change. Left: Mass present. No swelling, bleeding, inverted nipple, nipple discharge, skin change or tenderness. Comments: Tender cystic area 1 cm, right breast 9 oclock outer aspect. Diffuse cystic area 2 oclock left breast Genitourinary: General: Normal vulva. Labia: Right: No rash, tenderness, lesion or injury. Left: No rash, tenderness, lesion or injury. Vagina: Normal. No signs of injury and foreign body. No vaginal discharge, erythema, tenderness, bleeding or lesions. Cervix: Friability and lesion present. No cervical motion tenderness, discharge, erythema, cervicalbleeding or eversion. Uterus: Normal. Tender. Not enlarged. Adnexa: Right adnexa normal and left adnexa normal. Right: No mass, tenderness or fullness. Left: No mass, tenderness or fullness. Comments: Tiny polyp just in os, sampled with pap. Mild uterine tenderness Lymphadenopathy: Upper Body: Right upper body: No supraclavicular or axillary adenopathy. Left upper body: No supraclavicular or axillary adenopathy. Neurological: Mental Status: She is alert. Psychiatric: Mood and Affect: Mood normal. Behavior: Behavior normal. Assessment/Plan Diagnoses and all orders for this visit: Cervical cancer screening - Pap Smear Cotest 5 y if normal/HPV negative. Will contact with results and plan. Breast pain, right - BI US Breast Limited Right; Future - BI Mammogram Diagnostic Tomosynthesis Bilateral; Future Possible mass, feels cystic. Will get ultrasound and mammogram. Unspecified dyspareunia - US Pelvis Transvaginal; Future - Us Pelvis complete; Future Pelvic ultrasound ordered. Will contact with results and plan. If ultrasound and breast imaging allnormal, and pain with sex persists, consider trial of vaginal estrogen. Breast cyst, left - BI US Breast Limited Left; Future - BI Mammogram Diagnostic Tomosynthesis Bilateral; Future Known left breast cyst. Mammogram and ultrasound ordered. Cervical polyp Sampled with pap. Reassured, common, usually benign. No treatment needed unless having abnormal bleeding. Report if heavy, frequent or prolonged bleeding. Perimenopause Reviewed normal vs abnormal bleeding. Report bleeding after a year of no bleeding. Report if heavy, frequent or prolonged bleeding. Vasomotor symptoms mild, not bothersome. Let me know if this changes. If ultrasound and breast imaging all normal, and pain with sex persists, consider trial of vaginal estrogen. documented in this encounter Plan of Treatment Upcoming Encounters Date Type Department Care Team (Late st Contact Info) Description 05/06/2025 2:30 PM EDT Office Visit [facility] [address] [place] [address] Corin Doyle MD [address] [place] [address] 07/01/2025 3:30 PM EST Medication Management [facility] [address] [place] [address] Sam Peace, PharmD [address] [place] [address] Scheduled Orders Name Type Priority Associated Diagnoses Orde r Schedule Pap Smear Pathology and Cytology Routine Cervical cancer screening Ordered: 04/02/2025 BI US Breast Limited Right Imaging Urgent Breast pain, right Expected: 04/02/2025, Expires: 04/02/2026 BI US Breast Limited Left Imaging Routine Breast cyst, left Expected: 04/02/2025, Expires: 04/02/2026 BI Mammogram Diagnostic Tomosynthesis Bilateral Imaging Urgent Breast pain, right Breast cyst, left Expected: 04/02/2025, Expires: 06/02/2026 US Pelvis Transvaginal Imaging Urgent Unspecified dyspareunia Expected: 04/02/2025, Expires: 04/02/2026 Us Pelvis complete Imaging Urgent Unspecified dyspareunia Expected: 04/02/2025, Expires: 04/02/2026 documented as of this encounter Visit Diagnoses Diagnosis Cervical cancer screening- Primary Screening for malignant neoplasm of the cervix Breast pain, right Unspecified dyspareunia Breast cyst, left Cervical polyp Mucous polyp of cervix Perimenopause Symptomatic menopausal or female climacteric states documented in this encounter Additional Health Concerns Assessment Noted Time PHQ-9 Depression Total Score: 0 08/14/19 25 3:31 PM EST documented as of this encounter Care Teams Internet Security Specialist Relationship Specialty Start Date End Date Corin Doyle MD [address] [place] [address] PCP - General Family Medicine 07/18/18 Sam Peace, ConchisD [address] [place] [address] Pharmacist Pharmacy 03/06/25 Danay Carmen Manager BeverageMat Tester 12/09/23 Danay Carmen Manager BeverageMat Tester 08/27/24 documented as of this encounter
--- NOTE | ~2025-04-05 | US_ITS ---
EXAMINATION: US LOWER EXTREMITY VENOUS (REFLUX EXAM), BILATERAL CLINICAL INFORMATION: Varicose veins of the lower extremity with inflammation COMPARISON: None. TECHNIQUE: Color flow triplex imaging and compression Doppler was performed to evaluate both the deep and the superficial systems bilaterally. To evaluate the superficial system, the examination was performed in the upright position. Color-flow Doppler ultrasound and compression ultrasound were utilized. In addition, maneuvers were utilized to demonstrate reflux. FINDINGS: 1. DEEP VENOUS ULTRASOUND OF THE RIGHT LOWER EXTREMITY: Common Femoral Vein: Compressible, normal respiratory variation and augmented flow. Femoral Vein: Compressible, normal color flow and augmentation. Popliteal Vein: Compressible, normal augmentation. Deep Reflux: There is no evidence of reflux in the deep system in either the common femoral vein, superficial femoral or the popliteal vein. 2. SUPERFICIAL ULTRASOUND WITH DOPPLER OF RIGHT LOWER EXTREMITY: GREAT SAPHENOUS VEIN: Saphenofemoral Junction: 0.9 cm; Reflux: 0 ms Proximal Thigh: 0.3 cm; Reflux: 0 ms Mid Thigh: 0.4 cm; Reflux: 0 ms Distal Thigh: 0.4 cm; Reflux: 0 ms At Knee: 2.4 cm; Reflux: 0 ms Below Knee/Proximal Calf: 0.2 cm; Reflux: 0 ms Mid Calf: 0.2 cm; Reflux: 0 ms Ankle/Distal Calf: 0.2 cm; Reflux: 0 ms Lateral accessory GREAT SAPHENOUS VEIN: Saphenofemoral Junction: 0.4 cm; Reflux: 0 ms Mid Thigh: 0.4 cm; Reflux: 0 ms SMALL SAPHENOUS VEIN: Drainage: Popliteal vein Saphenopopliteal Junction: 0.4 cm; Reflux: 0 ms Mid calf: 0.2 cm; Reflux: 0 ms Distal: 0.1 cm; Reflux: 0 ms VEIN OF GIACOMINI: Size: 0.4 cm Reflux: 0 ms PERFORATORS: Location: Riding Double into varicosity, distal calf Size: 0.3 cm Reflux: 0 ms VARICOSITIES > 3mm: Location: Greater saphenous vein, proximal calf Size: 0.3 cm Reflux: 0 ms 3. DEEP VENOUS ULTRASOUND OF THE LEFT LOWER EXTREMITY: Common Femoral Vein: Compressible, normal respiratory variation and augmented flow. Femoral Vein: Compressible, normal color flow and augmentation. Popliteal Vein: Compressible, normal augmentation. Deep Reflux: There is no evidence of reflux in the deep system in either the common femoral vein, superficial femoral or the popliteal vein. 4. SUPERFICIAL ULTRASOUND WITH DOPPLER OF LEFT LOWER EXTREMITY: GREAT SAPHENOUS VEIN: Saphenofemoral Junction: 1.1 cm; Reflux: 0 ms Proximal Thigh: 0.3 cm; Reflux: 0 ms Mid Thigh: 0.3 cm; Reflux: 0 ms Distal Thigh: 0.3 cm; Reflux: 0 ms At Knee: 0.3 cm; Reflux: 0 ms Below Knee/Proximl calf: 0.3 cm; Reflux: 0 ms Mid Calf: 0.2 cm; Reflux: 0 ms Distal Calf/Ankle: 0.2 cm; Reflux: 672 ms Lateral accessory GREAT SAPHENOUS VEIN: Saphenofemoral Junction: 0.4 cm; Reflux: 0 ms Mid Thigh: 0.2 cm; Reflux: 0 ms SMALL SAPHENOUS VEIN: Drainage: Popliteal vein Saphenopopliteal Junction: 0.6 cm; Reflux: 0 ms Mid calf: 0.2 cm; Reflux: 0 ms Distal calf: 0.1 cm; Reflux: 0 ms VEIN OF GIACOMINI: Size: NA Reflux: NA PERFORATORS: Location: Greater saphenous vein, mid thigh event set up specialist into varicosity Size: 0.2 cm Reflux: 0 ms Location: Greater saphenous vein into varicosity, mid calf Size: 0.2 cm Reflux: 0 ms VARICOSITIES > 3mm: Location: Small saphenous vein, proximal Size: 0.3 cm Reflux: 0 ms US/US venous insuf bilat IMPRESSION: Right: No evidence of venous incompetence. Left: Venous incompetence demonstrated in the greater saphenous vein at the ankle. Electronically signed by: Shamar Eddy MD 04/05/2025 03:22 PM EDT
--- OUTSIDE RECORDS SUMMARY | 2025-04-05 13:47 | XMS_ITS | Encounter Summary ---
Author Organization [employer] Address [address] [facility] [address] 7t [place] [address] Care Team Providers Care Negotiator Name Role Phone Corin Doyle MD Primary Care Provider [phone] Sam Peace PharmD Unavailable [phone] Encounter Details Date Type Department Care Team ([facility] st Contact Info) Description 01/01/2025 Orders Only [facility]ICINE 230 [place], [place] [phone] Corin Doyle MD 230 [place] [address] Social History Tobacco Use Types Packs/Day Years [...] 2:30 PM EDT Office Visit [facility] [address] [place] [address] Corin Doyle MD [address] [place] [address] 07/01/2025 3:30 PM EST Medication Management [address] [address] Sam Peace, Yulissa [address] [place] [address] documented as of this encounter Visit Diagnoses Not on filedocumented in this encounter Additional Health Concerns Assessment Noted Time PHQ-9 Depression Total Score: 0 08/14/19 25 3:31 PM EST documented as of this encounter Care Teams Negotiator Relationship Specialty Start Date End Date Corin Doyle MD [address] [place] [address] PCP - General Family Medicine 07/18/18 Sam Peace, PharmD [address] [place] [address] [phone] Pharmacist Pharmacy 03/06/25 Danay Carmen Home Care ManagerClinical Unit Educator 12/09/23 Danay Carmen Home Care ManagerClinical Unit Educator 08/27/24 documented as of this encounter
--- OUTSIDE RECORDS SUMMARY | 2025-04-05 13:47 | XMS_ITS | Encounter Summary ---
Author Organization [employer] Address [address] [facility] [address] 7t [place] [address] Care Team Providers Care Senior It Engineer Name Role Phone Corin Doyle MD Primary Care Provider Sam Peace PharmD Unavailable [phone] Reason for Visit * Reason Onset Date Comments Med Refill 01/25/2024 Encounter Details Date Type Department Care Team (Late st Contact Info) Description 01/25/2024 Refill [facility] MEDICINE 230 [place] [address] Corin Doyle MD 230 [place] [address] Social History Tobacco Use Types Packs/Day Years [...] 2:30 PM EDT Office Visit [facility] MEDICINE [address] [place] [address] Corin Doyle MD [address] [place] [address] 07/01/2025 3:30 PM EST Medication Management [facility] MEDICINE [address] [place] [address] Sam Peace, PharmD [address] [place] [address] documented as of this encounter Visit Diagnoses Not on filedocumented in this encounter Additional Health Concerns Assessment Noted Time PHQ-9 Depression Total Score: 0 11/24/19 23 3:58 PM EDT documented as of this encounter Care Teams Senior It Engineer Relationship Specialty Start Date End Date Corin Doyle MD [address] [place] [address] PCP - General Family Medicine 07/18/18 Sam Peace, PharmD [address] [place] [address] Pharmacist Pharmacy 03/06/25 Danay Carmen Jack Machine OperatorAlley Cleaner 12/09/23 Danay Carmen Jack Machine OperatorAlley Cleaner 08/27/24 documented as of this encounter
--- OUTSIDE RECORDS SUMMARY | 2025-04-05 13:47 | XMS_ITS | Encounter Summary ---
Author Organization [employer] Address [address] [facility] [address] 7t [place] [address] Care Team Providers Care Lead Investigator Name Role Phone Coirn Doyle MD Primary Care Provider [phone] Sam Peace PharmD Unavailable [phone] Reason for Visit * Reason Onset Date Comments Med Refill 12/13/2023 Encounter Details Date Type Department Care Team (Late st Contact Info) Description 12/13/2023 Refill [facility] [address] [place] [address] Corin Doyel MD 230 [place] [address] Social History Tobacco Use Types Packs/Day Years [...] Description 05/06/2025 2:30 PM EDT Office Visit [facility] [address] [place] [address] Corin Doyle MD [address] [place] [address] 07/01/2025 3:30 PM EST Medication Management [facility] [address] [place] [address] Sam Peace, PharmD [address] [place] [address] 96[address] documented as of this encounter Visit Diagnoses Not on filedocumented in this encounter Additional Health Concerns Assessment Noted Time PHQ-9 Depression Total Score: 0 11/24/19 23 3:58 PM EDT documented as of this encounter Care Teams Lead Investigator Relationship Specialty Start Date End Date Corin Doyle MD [address] [place] [address] PCP - General Family Medicine 07/18/18 Sam Peace, PharmD [address] [place] [address] 15044 Pharmacist Pharmacy 03/06/25 Danay Carmen Affiliate Marketing ManagerAnalyst Market Intelligence 12/09/23 Danay Carmen Affiliate Marketing ManagerAnalyst Market Intelligence 08/27/24 documented as of this encounter
--- OUTSIDE RECORDS SUMMARY | 2025-04-05 13:47 | XMS_ITS | Encounter Summary ---
Author Organization [employer] Address [address] [facility] [address] 7t [place] [address] Care Team Providers Care Strand Galvanizer Name Role Phone Corin Doyle MD Primary Care Provider [phone] Sam Peace PharmD Unavailable [phone] Reason for Visit * Reason Onset Date Comments Med Refill 03/23/2024 Encounter Details Date Type Department Care Team (Late st Contact Info) Description 03/23/2024 Refill [facility] 230 [place] [address] Corin Doyle MD [address] [place] [address] Social History Tobacco Use Types Packs/Day Years [...] PM EDT Office Visit [facility] [address] [place] [phone] Corin Doyle MD [address] [place] [address] 07/01/2025 3:30 PM EST Medication Management [facility] [address] [place] [address] Sam Peace, PharmD [address] [place] [address] 20050 documented as of this encounter Visit Diagnoses Not on filedocumented in this encounter Additional Health Concerns Assessment Noted Time PHQ-9 Depression Total Score: 0 11/24/19 23 3:58 PM EDT documented as of this encounter Care Teams Strand Galvanizer Relationship Specialty Start Date End Date Corin Doyle MD [address] [place] [address] PCP - General Family Medicine 07/18/18 Sam Peace, PharmD [address] [place] [address] [phone] Pharmacist Pharmacy 03/06/25 Danay Carmen Line Ordering ClinicianOrthopedic Nurse Practitioner 12/09/23 Danay Carmen Line Ordering ClinicianOrthopedic Nurse Practitioner 08/27/24 documented as of this encounter
--- OUTSIDE RECORDS SUMMARY | 2025-04-05 13:47 | XMS_ITS | Encounter Summary ---
Author Organization [employer] Address [address] [facility] [address] 7t [place] [address] Care Team Providers Care Thread Roller Name Role Phone Corin Doyle MD Primary Care Provider [phone] Sam Peace PharmD Unavailable [phone] Reason for Visit * Reason Onset Date Comments Med Refill 02/19/2024 Encounter Details Date Type Department Care Team (Late st Contact Info) Description 02/19/2024 Refill [facility] 230 [place] [address] Gabriela López MD 230 [place], [place] [phone] Lumbar sprain, initial encounter Social History Tobacco [...] 2:30 PM EDT Office Visit [facility] MEDICINE [address] [place] [address] Corin Doyle MD [address] [place] [address] 07/01/2025 3:30 PM EST Medication Management [facility] MEDICINE [address] [place] [address] Sam Peace, PharmD [address] [place] [address] documented as of this encounter Visit Diagnoses Diagnosis Lumbar sprain, initial encounter documented in this encounter Additional Health Concerns Assessment Noted Time PHQ-9 Depression Total Score: 0 11/24/19 23 3:58 PM EDT documented as of this encounter Care Teams Thread Roller Relationship Specialty Start Date End Date Corin Doyle MD [address] [place] [address] PCP - General Family Medicine 07/18/18 Sam Peace, PharmD [address] [place] [address] [phone] Pharmacist Pharmacy 03/06/25 Danay Carmen Life Care PlannerRadio Program Director 12/09/23 Danay Carmen Life Care PlannerRadio Program Director 08/27/24 documented as of this encounter
--- OUTSIDE RECORDS SUMMARY | 2025-04-05 13:47 | XMS_ITS | Encounter Summary ---
Author Organization [employer] Address [address] [facility] 7t [place] [address] Care Team Providers Care Product Mgr Name Role Phone Corin Doyle MD Primary Care Provider [phone] Sam Peace PharmD Unavailable [phone] Reason for Visit * Reason Comments Med Change Request Encounter Details Date Type Department Care Team ([facility] st Contact Info) Description 01/08/2024 Refill [facility] MED[facility]INE 230 [place], [place] [phone] Corin Doyle MD 230 [place], [place] [phone] Social History Tobacco Use Types Packs/Day Years [...] 2:30 PM EDT Office Visit [facility] [address] [place] [address] Corin Doyle MD [address] [place] [address] 07/01/2025 3:30 PM EST Medication Management [facility] [address] [place] [address] 113[address] Sam Peace, PharmD [address] [place] [address] documented as of this encounter Visit Diagnoses Not on filedocumented in this encounter Additional Health Concerns Assessment Noted Time PHQ-9 Depression Total Score: 0 11/24/19 23 3:58 PM EDT documented as of this encounter Care Teams Product Mgr Relationship Specialty Start Date End Date Corin Doyle MD [address] [place] [address]17 PCP - General Family Medicine 07/18/18 Sam Peace, PharmD [address] [place] [address] [phone] Pharmacist Pharmacy 03/06/25 Danay Carmen End WorkerEmbalmer/Funeral Director 12/09/23 Danay Carmen End WorkerEmbalmer/Funeral Director 08/27/24 documented as of this encounter
--- OUTSIDE RECORDS SUMMARY | 2025-04-05 13:47 | XMS_ITS | Encounter Summary ---
Author Organization [employer] Address [address] [facility] [address] 7t [place] [address] Care Team Providers Care Temp Recruiter Name Role Phone Corin Doyle MD Primary Care Provider [phone] Sam Peace PharmD Unavailable [phone] Encounter Details Date Type Department Care Team ([facility] st Contact Info) Description 04/02/2025 Orders Only [facility] MEDICINE [address] [place] [address] Karli Wells CNM [address] [place] [address] Social History Tobacco Use Types Packs/Day Years [...] Description 05/06/2025 2:30 PM EDT Office Visit [facility] MEDICINE [address] [place] [address] Corin Doyle MD [address] [place] [address] 310[address] 07/01/2025 3:30 PM EST Medication Management [address] [address] Sam Peace, PharmD [address] [place] [address] 39[address] documented as of this encounter Procedures Procedure Name Priority Date/Time Associated Diagnosis Comments HPV DNA, LOW/HIGH RISK Routine 04/02/2025 12:00 AM EDT documented in this encounter Results * HPV DNA, Low/High Risk (04/02/2025 12:00 AM EDT) HPV High Risk Negative Negative [facility] HPV Genotype 16 Negative Negative [facility] HPV Genotype 18 Negative Negative [facility] Comment:HPV testing performe d at [facility] (CLIA#[id number]), [address] [place] [phone].Testing for HPV was performed using the Laura CLINT 6800system. The presence of HPV in the female genital tract isassociated with a number of diseases, including cervicalcarcinoma. The HPV DNA high risk pool tests for HPV 31, 33,35, 39, 45, 51, 52, 56, 58, 59, 66 and 68. The testing forHPV 16 and 18 genotypes has also been performed. A positiveresult indicates detection of nucleic acid sequences fromone or more subtypes, whereas a negative result indicatessuch sequences were not detected. 04/02/2025 04/03/2025 11: 40 AM EDT us Karli Wells CN LAB BLOOD ORDERABLES Tegan l Result [facility] [address] [place] [address] [phone] documented in this encounter Visit Diagnoses Not on filedocumented in this encounter Additional Health Concerns Assessment Noted Time PHQ-9 Depression Total Score: 0 08/14/19 3:31 PM EST documented as of this encounter Care Teams Temp Recruiter Relationship Specialty Start Date End Date Corin Doyle MD [address] [place] [address] 6[address]47 PCP - General Family Medicine 07/18/18 Sam Peace, PharmD [address] [place] [address] 30038 Pharmacist Pharmacy 03/06/25 Danay Carmen Investor Relations AssociateSiderographer 12/09/23 Danay Carmen Investor Relations AssociateSiderographer 08/27/24 documented as of this encounter
--- OUTSIDE RECORDS SUMMARY | 2025-04-05 13:48 | XMS_ITS | Encounter Summary ---
Author Organization [employer] Address [address] [facility] [address] 7t [place] [address] Care Team Providers Care Trench Digger Name Role Phone Corin Doyle MD Primary Care Provider [phone] Sam Peace PharmD Unavailable [phone] Encounter Details Date Type Department Care Team ([facility] st Contact Info) Description 08/16/2023 Orders Only [facility] 230 [place], [place] [phone] Eddie Guerrero MD 230 [place], [place] [phone] Social History Tobacco Use Types Packs/Day Years [...] Description 05/06/2025 2:30 PM EDT Office Visit [facility] MEDICINE [address] [place] [address] Corin Doyle MD [address] [place] [address] 07/01/2025 3:30 PM EST Medication Management [facility]INE [address] [place] [address] [phone] Sam Peace, PharmD [address] [place] [address] 17105 documented as of this encounter Visit Diagnoses Not on filedocumented in this encounter Additional Health Concerns Assessment Noted Time PHQ-9 Depression Total Score: 0 11/24/19 23 3:58 PM EDT documented as of this encounter Care Teams Trench Digger Relationship Specialty Start Date End Date Corin Doyle MD [address] [place] [phone] PCP - General Family Medicine 07/18/18 Sam Peace, PharmD [address] [place] [address] [phone] Pharmacist Pharmacy 03/06/25 Danay Carmen Remotely Operated VehicleCustom Bow Maker 12/09/23 Danay Carmen Remotely Operated VehicleCustom Bow Maker 08/27/24 documented as of this encounter
--- OUTSIDE RECORDS SUMMARY | 2025-04-05 13:48 | XMS_ITS | Encounter Summary ---
Author Organization [employer] Address [address] [place] [address] 7t [place] [address] Care Team Providers Care Folder Stitcher Operator Name Role Phone Corin Doyle MD Primary Care Provider [phone] Sam Peace PharmD Unavailable [phone] Reason for Referral * Imaging (Routine) - Closed Specialty Diagnoses / Procedures Referred By Contac t Referred To Contact Radiology Diagnoses Breast cancer screening by mammogram Procedures BI Mammogram Screening Tomosynthesis Bilateral Corin Doyle MD [address] [place] [address] Phone: tel: fax: [address] Phone: tel: fax: Referral ID Status Reason Start Date Expiration Date Visits Re quested Visits Authorized [id number] Closed 11/01/2023 10/31/2024 1 1 * Consultation (Routine) - Canceled Specialty Diagnoses / Procedures Referred By Contac t Referred To Contact Gastroenterology Diagnoses Colon cancer screening Corin Doyle MD [address] [place] [address] Phone: tel: fax: Referral ID Status Reason Start Date Expiration Date Visits Requested Visits Authorized [id number] Canceled Specialty Services Required 11/01/2023 10/31/2024 1 1 * Imaging (Routine) - Closed Specialty Diagnoses / Procedures Referred By Contantwon t Referred To Contact Radiology Diagnoses Elevated liver enzymes Procedures US Abdomen Comp w elastography Corin Doyle MD [address] [place] [address] Phone: tel: fax: [facility] [address] [place] [address] Phone: tel: fax: Referral ID Status Reason Start Date Expiration Date Visits Re quested Visits Authorized [id number] Closed 11/01/2023 10/31/2024 1 1 Encounter Details Date Type Department Care Team (Late st Contact Info) Description 11/01/2023 Orders Only [facility] MEDICINE [address] [place] [address] Corin Doyle MD [address] [place] [address] Elevated liver enzymes (Primary Dx); Breast cancer [...] Description 05/06/2025 2:30 PM EDT Office Visit [facility] MEDICINE [address] [place] [address] Corin Doyle MD [address] [place] [address] 386[address] 07/01/2025 3:30 PM EST Medication Management [facility] MEDICINE [address] [place] [address] Sam Peace, PharmD [address] [place] [address] Scheduled Referrals Name Type Priority Associated Diagnoses [...] PM EDT Narrative 12/30/2023 5:50 AM EDT [address] [place], [place] [address] Mammography Report Signed Patient: Janelle León MR#: [id number] : 1975 Acct:[id number] Age/Sex: 48 / F ADM Date: 11/29/23 Loc: HO.MAMMO Attending Dr: Corin Doyle MD Ordering Physician: Corin Doyle MD Results: 0Incomple te: Needs Additional Imaging Evaluation Date of Service: 11/29/23 Follow Up: Additional Imagi ng Procedure(s): MM tomosynthesis screening BI Accession Number(s): [id number] cc: Corin Doyle MD EXAMINATION: MM SCREENING [...] in OV> 12/30/23 0546 DD/ 1557 TD/TT: Pipeline Systems Operator: Procedure Note Donotuseinterpreter, Image - 12/30/2023 [facility] [address] [place] [address] Mammography Report Signed Patient: Janelle León GMR#: [id number] : 1975Acct:[id number] Age/Sex: 48 / FADM Date: 11/29/23 Loc: HARI Attending Dr: Corin Doyle MD Ordering Physician: Corin Doyle MDResults: 0Incomple te: Needs Additional Imaging Evaluation Date of Service: 11/29/23Follow Up: Additional Imagi ng Procedure(s): MM tomosynthesis screening BI Accession Number(s): [id number] cc: Corin Doyle MD EXAMINATION: MM SCREENING [...] in OV> 12/30/23 0546 DD/ 1557 TD/TT: Pipeline Systems Operator: us Corin Doyle MD IMG BI PROCEDURES Edited Result - Final * US Abdomen Comp w elastography (11/22/2023 11:50 AM EDT) Anatomical Region Laterality Modality Abdomen Ultrasound 11/22/2023 11:5 0 AM EDT Narrative 11/28/2023 5:18 PM EDT [place] [address] Ultrasound Report Signed Patient: Janelle León MR#: [id number] : 1975 Acct:[id number] Age/Sex: 48 / F ADM Date: 11/22/23 Loc: HO.US Attending Dr: Corin Doyle MD Ordering Physician: Corin Doyle MD Date of Service: 11/22/23 Procedure(s): US abdomen comp w elastography Accession Number(s): [id number] cc: Corin Doyle MD EXAMINATION: US COMPLETE [...] in OV> 11/28/23 1714 DD/ 1150 TD/TT: Pipeline Systems Operator: KIMI Procedure Note Donotuseinterpreter, Image - 11/28/2023 [place] [address] Ultrasound Report Signed Patient: Janelle León GMR#: [id number] : 1975Acct:[id number] Age/Sex: 48 / FADM Date: 11/22/23 Loc: HO.US Attending Dr: Corin Doyle MD Ordering Physician: Corin Doyle MD Date of Service: 11/22/23 Procedure(s): US abdomen comp w elastography Accession Number(s): [id number] cc: Corin Doyle MD EXAMINATION: US COMPLETE [...] in OV> 11/28/23 1714 DD/ 1150 TD/TT: Pipeline Systems Operator: KIMI us Corin Doyle MD IMG US PROCEDURES Final Result * (ABNORMAL) Potassium (11/11/2023 8:41 AM EDT) Potassium 3.2(L) 3.3 - 5.1 mmol/L [facility] Blood Venous blood specimen / Unknown 11/11/2023 8:41 AM EDT 11/11/2023 11:40 AM EDT Corin Doyle MD LAB BLOOD ORDERABLES Final Resul t [facility] [address] [place] [phone] * Hepatitis A,B,C Profile (11/11/2023 8:41 AM EDT) Hepatitis A IgM Nonreactive Nonreactive [facility] Comment:IgM antibodies to GUZMÁN V not detected; does not exclude earlyacute or recovered HAV infection. ~Hepatitis B Surface Antibody REACTIVE Nonreactive [facility] Comment:REACTIVE: > 11.99 mI U/mL Hepatitis B Core Antibody Nonreactive Nonreactive [facility] Hepatitis C Antibody Nonreactive Nonreactive [facility] Comment:Antibodies to HCV no t detected; does not exclude early acuteHCV infection. Hepatitis B Surface Ag Negative Negative [facility] Blood Venous blood specimen / Unknown 11/11/2023 8:41 AM EDT 11/11/2023 11:40 AM EDT us Corin Doyle MD LAB BLOOD ORDERABLES Final Resul t [facility] [address] [place] [address] [phone] * (ABNORMAL) CBC auto differential (11/11/2023 8:41 AM EDT) White Blood Count 6.6 4.8 - 10.8 X10*3/uL [facility] Red Blood Count 5.08 4.20 - 5.50 X10*6/uL [facility] Hemoglobin 13.4 12.0 - 16.0 g/dl [facility] Hematocrit 42.1 37.0 - 47.0 % [facility] Mean Corpuscular Volume 82.9 80.0 - 98.0 fL [facility] Mean Corpuscular Hemoglobin 26.4(L) 27.0 - 33.0 pg [facility] Mean Corpuscular HGB Conc 31.8 31.0 - 35.0 g/dl [facility] Red Cell Distribution Width 14.4 11.0 - 16.0 % [facility] Platelet Count 267 160 - 400 X10*3/uL [facility] Mean Platelet Volume 11.0 9.4 - 12.3 fL [facility] Neutrophils Percent Auto 59.9 45 - 73 % [facility] Imm Gran Pct Auto 0.6(H) 0.0 - 0.4 % [facility] Lymphocytes Percent Auto 26.2 20 - 40 % [facility] Monocytes Percent Auto 8.4 2 - 11 % [facility] Eosinophils Percent Auto 3.8 0 - 4 % [facility] Basophils Percent Auto 1.1 0 - 2 % [facility] NRBC Pct Auto 0.0 0.0 - 0.2 /100WBC [facility] Neutrophils Absolute Auto 3.9 2.0 - 8.3 x10*3/uL [facility] Imm Gran Abs Auto 0.04(H) 0.00 - 0.03 X10*3/uL [facility] Lymphocytes Absolute Auto 1.7 1.2 - 4.9 X10*3/uL [facility] Monocytes Absolute Auto 0.6 0.1 - 1.2 X10*3/uL [facility] Eosinophils Absolute Auto 0.3 0.0 - 0.4 X10*3/uL [facility] Basophils Absolute Auto 0.1 0.0 - 0.2 X10*3/uL [facility] NRBC Abs Auto 0.000 0.0 - 0.012 X10*3/uL [facility] Blood Venous blood specimen / Unknown 11/11/2023 8:41 AM EDT 11/11/2023 11:40 AM EDT Corin Doyle MD LAB BLOOD ORDERABLES Final Resul t [facility] [address] [place] [address] [phone] documented in this encounter Visit Diagnoses Diagnosis Elevated liver enzymes- Primary Other nonspecific abnormal serum enzyme levels Breast cancer screening by mammogram Colon cancer screening Special screening for malignant neoplasms, colon Hypokalemia Hypopotassemia documented in this encounter Additional Health Concerns Assessment Noted Time PHQ-9 Depression Total Score: 0 11/24/19 23 3:58 PM EDT documented as of this encounter Care Teams Folder Stitcher Operator Relationship Specialty Start Date End Date Corin Doyle MD [address] [place] [address]46 PCP - General Family Medicine 07/18/18 Sam Peace, PharmD [address] [place] [address] Pharmacist Pharmacy 03/06/25 Danay Carmen Automotive ConsultantRod Piler 12/09/23 Danay Carmen Automotive ConsultantRod Piler 08/27/24 documented as of this encounter
--- OUTSIDE RECORDS SUMMARY | 2025-04-05 13:48 | XMS_ITS | Encounter Summary ---
Author Organization [employer] Address [address] [facility] [address] 7t [place] [address] Care Team Providers Care Weather Forecaster Name Role Phone Corin Doyle MD Primary Care Provider Sam Peace PharmD Unavailable [phone] Reason for Visit * Reason Onset Date Comments Nurse Triage 05/25/2024 Encounter Details Date Type Department Care Team ([facility] st Contact Info) Description 05/25/2024 Telephone [facility] [address] [place] [address] Corin Doyle MD [address] [place] [address] Nurse Triage Social History Tobacco Use Types [...] theER now. RN advises pt to call [facility] back when she is discharged in order [...] 2:30 PM EDT Office Visit [facility] MEDICINE [address] [place] [address] [phone] Corin Doyle MD [address] [place] [address] 07/01/2025 3:30 PM EST Medication Management [facility] [address] [place] [address] Sam Peace, PharmD [address] [place] [address] documented as of this encounter Visit Diagnoses Not on filedocumented in this encounter Additional Health Concerns Assessment Noted Time PHQ-9 Depression Total Score: 0 11/24/19 23 3:58 PM EDT documented as of this encounter Care Teams Weather Forecaster Relationship Specialty Start Date End Date Corin Doyle MD [address] [place] [address] PCP - General Family Medicine 07/18/18 Sam Peace, PharmD [address] [place] [phone] Pharmacist Pharmacy 03/06/25 Danay Carmen Production Quality ManagerReliability Specialist 12/09/23 Danay Carmen Production Quality ManagerReliability Specialist 08/27/24 documented as of this encounter
--- OUTSIDE RECORDS SUMMARY | 2025-04-05 13:48 | XMS_ITS | Encounter Summary ---
Author Organization [employer] Address [address] [facility] [address] 7t [place] [address] Care Team Providers Care Mold Yard Supervisor Name Role Phone Corin Doyle MD Primary Care Provider [phone] Sam Peace PharmD Unavailable [phone] Encounter Details Date Type Department Care Team ([facility] st Contact Info) Description 04/01/2025 Telephone [facility] [address] [place], [place] [phone] Corin Doyle MD [address] [place] [address] Social History Tobacco Use Types Packs/Day Years [...] Description 05/06/2025 2:30 PM EDT Office Visit [address] [address] Corin Doyle MD [address] [place] [address] 07/01/2025 3:30 PM EST Medication Management [address] [address] Sam Peace, Yulissa [address] [place] [address] [phone] documented as of this encounter Visit Diagnoses Not on filedocumented in this encounter Additional Health Concerns Assessment Noted Time PHQ-9 Depression Total Score: 0 08/14/19 25 3:31 PM EST documented as of this encounter Care Teams Mold Yard Supervisor Relationship Specialty Start Date End Date Corin Doyle MD [address] [place] [phone] PCP - General Family Medicine 07/18/18 Sam Peace, PharmD [address] [place] [address] [phone] Pharmacist Pharmacy 03/06/25 Danay Carmen Actuary ManagerSystems Development Manager 12/09/23 Danay Carmen Actuary ManagerSystems Development Manager 08/27/24 documented as of this encounter
--- OUTSIDE RECORDS SUMMARY | 2025-04-05 13:48 | XMS_ITS | Encounter Summary ---
Author Organization [employer] Address 75 [facility] 7t [place] [address] Care Team Providers Care Direct Support Professional Home Health Name Role Phone Corin Doyle MD Primary Care Provider [phone] Sam Peace PharmD Unavailable [phone] Encounter Details Date Type Department Care Team (Late Contact Info) Description 06/28/2022 Orders Only [facility] MED & PEDS [address] [place] [address] Belgica Lanza RN Social History Tobacco Use [...] Upcoming Encounters Date Type Department Care Team ([facility] Contact Info) Description 05/06/2025 2:30 PM EDT Office Visit [facility] MEDICINE [address] [place] [address] Corin Doyle MD [address] [place] [address] [phone] 07/01/2025 3:30 PM EST Medication Management [facility] MED[facility]INE [address] [place] [address] Sam Peace, PharmD [address] [place] [address] [phone] documented as of this encounter Visit Diagnoses Not on filedocumented in this encounter Care Teams Direct Support Professional Home Health Relationship Specialty Start Date End Date Corin Doyle MD [address] [place], [place] [phone] PCP - General Family Medicine 07/18/18 Sam Peace, Yulissa [address] [place] [address] Pharmacist Pharmacy 03/06/25 Danay Carmen Stem MounterChart Writer 12/09/23 Danay Carmen Stem MounterChart Writer 08/27/24 documented as of this encounter
--- OUTSIDE RECORDS SUMMARY | 2025-04-05 13:48 | XMS_ITS | Encounter Summary ---
Author Organization [employer] Address [address] [facility] [address] 7t [place] [address] Care Team Providers Care Gas Compressor Operator Name Role Phone Corin Doyle MD Primary Care Provider [phone] Sam Peace PharmD Unavailable [phone] Reason for Visit * Reason Onset Date Comments Referral 10/18/2023 Encounter Details Date Type Department Care Team ([facility] st Contact Info) Description 10/18/2023 Telephone [facility] [address] [place] [address] Corin Doyle MD [address] [place] [address] Referral Social History Tobacco Use Types Packs/Day [...] - 10/18/2023 3:42 PM EDT Tc from [facility] with ICP calling in regards referral for cardiology, stated pt discussed referral on last appt with PCP on 08/08 and the referral is to control high blood pressure. documented in this encounter Plan of Treatment Upcoming Encounters Date Type Department Care Team (Late st Contact Info) Description 05/06/2025 2:30 PM EDT Office Visit [facility] MEDICINE [address] [place] [address] Corin Doyle MD [address] [place] [address] 07/01/2025 3:30 PM EST Medication Management [facility] [address] [place] [phone] Sam Peace, PharmD [address] [place] [address] documented as of this encounter Visit Diagnoses Not on filedocumented in this encounter Additional Health Concerns Assessment Noted Time PHQ-9 Depression Total Score: 0 11/24/19 23 3:58 PM EDT documented as of this encounter Care Teams Gas Compressor Operator Relationship Specialty Start Date End Date Corin Doyle MD [address] [place] [address] PCP - General Family Medicine 07/18/18 Sam Peace, PharmD [address] [place] [address]42 Pharmacist Pharmacy 03/06/25 Danay Carmen Cath Laboratory TechnicianDirector Metabolism 12/09/23 Danay Carmen Cath Laboratory TechnicianDirector Metabolism 08/27/24 documented as of this encounter
--- OUTSIDE RECORDS SUMMARY | 2025-04-05 13:48 | XMS_ITS | Encounter Summary ---
Author Organization [employer] Address [address] [facility] [address] 7t [place] [address] Care Team Providers Care Brownfield Redevelopment Site Manager Name Role Phone Corin Doyle MD Primary Care Provider [phone] Sam Peace PharmD Unavailable [phone] Reason for Visit * Reason Onset Date Comments Med Refill 03/29/2024 Encounter Details Date Type Department Care Team (Late st Contact Info) Description 03/29/2024 Refill [facility] MEDICINE [address] [place] [address] Corin Doyle MD [address] [place] [address] Social History Tobacco Use Types Packs/Day Years [...] Description 05/06/2025 2:30 PM EDT Office Visit [facility] [address] [place] [address] Corin Doyle MD [address] [place] [address] 07/01/2025 3:30 PM EST Medication Management [facility] [address] [place] [address] Sam Peace, PharmD [address] [place] [address] documented as of this encounter Visit Diagnoses Not on filedocumented in this encounter Additional Health Concerns Assessment Noted Time PHQ-9 Depression Total Score: 0 11/24/19 23 3:58 PM EDT documented as of this encounter Care Teams [employer] Redevelopment Site Manager Relationship Specialty Start Date End Date Corin Doyle MD [address] [place] [address] PCP - General Family Medicine 07/18/18 Sam Peace, PharmD [address] [place] [address] 607[address] Pharmacist Pharmacy 03/06/25 Danay Carmen Counter HopElectric Tape Slitter 12/09/23 Danay Carmen Counter HopElectric Tape Slitter 08/27/24 documented as of this encounter
--- OUTSIDE RECORDS SUMMARY | 2025-04-05 13:48 | XMS_ITS | Encounter Summary ---
Author Organization [employer] Address [address] [place] [address] 7t [place] [address] Care Team Providers Care Casualty Claims Supervisor Name Role Phone Corin Doyle MD Primary Care Provider [phone] Sam Peace PharmD Unavailable [phone] Reason for Referral * Consultation (Routine) - Authorized Specialty Diagnoses / Procedures Referred By Contac t Referred To Contact Pharmacy Diagnoses Primary hypertension Corin Doyle MD [address] [place] [address] Phone: tel: fax: Referral ID Status Reason Start Date Expiration Date Visits Requested Visits Authorized [id number] Authorized Consult and Treat 04/01/2025 04/01/2026 6 6 Encounter Details Date Type Department Care Team (Late st Contact Info) Description 04/01/2025 Orders Only [facility] [address] [place] [address] [phone] Corin Doyle MD [address] [place] [address] [phone] Primary hypertension (Primary Dx) Social History Tobacco [...] Description 05/06/2025 2:30 PM EDT Office Visit [facility] [address] [place] [address] Corin Doyle MD [address] [place] [address] 07/01/2025 3:30 PM EST Medication Management [address] [address] Sam Peace, PharmD [address] [place] [address] Scheduled Referrals Name Type Priority Associated Diagnoses Orde r Schedule Referral to Pharmacy CDTM Outpatient Referral Routine Primary hypertension Ordered: 04/01/2025 documented as of this encounter Visit Diagnoses Diagnosis Primary hypertension- Primary Unspecified essential hypertension documented in this encounter Additional Health Concerns Assessment Noted Time PHQ-9 Depression Total Score: 0 08/14/19 3:31 PM EST documented as of this encounter Care Teams Casualty Claims Supervisor Relationship Specialty Start Date End Date Corin Doyle MD 230 [place] [address] PCP - General Family Medicine 07/18/18 Sam Peace, PharmD [address] [place] [address] Pharmacist Pharmacy 03/06/25 Danay Carmen Real Estate AssessorMedical Device 12/09/23 Danay Carmen Real Estate AssessorMedical Device 08/27/24 documented as of this encounter
--- OUTSIDE RECORDS SUMMARY | 2025-04-05 13:48 | XMS_ITS | Encounter Summary ---
Author Organization [employer] Address [address] [facility] [address] 7t [place] [address] Care Team Providers Care Customer Engagement Specialist Name Role Phone Corin Doyle MD Primary Care Provider [phone] Sam Peace PharmD Unavailable [phone] Reason for Visit * Reason Onset Date Comments Med Refill 12/03/2024 Encounter Details Date Type Department Care Team (Late st Contact Info) Description 12/03/2024 Refill [facility] MEDICINE [address] [place] [address] Eddie Guerrero MD 230 [place] [address] Moderate persistent asthma with acute exacerbation Social [...] 05/06/2025 2:30 PM EDT Office Visit [facility] MEDICINE [address] [place] [address] Corin Doyle MD [address] [place] [address] 07/01/2025 3:30 PM EST Medication Management [facility] MEDICINE [address] [place] [address] Sam Peace PharmD [address] [place] [address] documented as of this encounter Visit Diagnoses Diagnosis Moderate persistent asthma with acute exacerbation documented in this encounter Additional Health Concerns Assessment Noted Time PHQ-9 Depression Total Score: 0 08/14/19 25 3:31 PM EST documented as of this encounter Care Teams Customer Engagement Specialist Relationship Specialty Start Date End Date Corin Doyle MD [address] [place] [address] PCP - General Family Medicine 07/18/18 Sam Peace, ConchisD [address] [place] [address] Pharmacist Pharmacy 03/06/25 Danay Carmen Business Records ManagerComplex Manager 12/09/23 Danay Carmen Business Records ManagerComplex Manager 08/27/24 documented as of this encounter
--- OUTSIDE RECORDS SUMMARY | 2025-04-05 13:48 | XMS_ITS | Encounter Summary ---
Author Organization [employer] Address [address] [facility] [address] 7t [place] [address] Care Team Providers Care Regroover Name Role Phone Corin Doyle MD Primary Care Provider [phone] Sam Peace PharmD Unavailable [phone] Reason for Visit * Reason Onset Date Comments Med Refill 04/20/2024 Encounter Details Date Type Department Care Team (Late st Contact Info) Description 04/20/2024 Refill [facility] MEDICINE 230 [place] [address] Corin Doyle MD 230 [place] [address] Social History Tobacco Use Types Packs/Day Years [...] Description 05/06/2025 2:30 PM EDT Office Visit [facility] MEDICINE [address] [place] [address] Corin Doyle MD [address] [place] [address] 07/01/2025 3:30 PM EST Medication Management [facility] MED[facility] [address] [place] [address] 469[address] Sam Peace, PharmD [address] [place] [address] documented as of this encounter Visit Diagnoses Not on filedocumented in this encounter Additional Health Concerns Assessment Noted Time PHQ-9 Depression Total Score: 0 11/24/19 23 3:58 PM EDT documented as of this encounter Care Teams Regroover Relationship Specialty Start Date End Date Corin Doyle MD [address] [place] [address] PCP - General Family Medicine 07/18/18 Sam Peace, PharmD [address] [place] [address] 194[address] Pharmacist Pharmacy 03/06/25 Danay Carmen Hip Hop DancerArmor Senior Sergeant 12/09/23 Danay Carmen Hip Hop DancerArmor Senior Sergeant 08/27/24 documented as of this encounter
--- OUTSIDE RECORDS SUMMARY | 2025-04-05 13:48 | XMS_ITS | Encounter Summary ---
Author Organization [employer] Address [address] [facility] [address] 7t [place] [address] Care Team Providers Care Manager Financial Planning Name Role Phone Corin Doyle MD Primary Care Provider Sam Peace PharmD Unavailable [phone] Reason for Visit * Reason Onset Date Comments Med Refill 07/12/2024 Encounter Details Date Type Department Care Team (Late st Contact Info) Description 07/12/2024 Refill [facility] MEDICINE 230 [place] [address] Corin Doyle MD 230 [place] [address] Social History Tobacco Use Types Packs/Day Years [...] Office Visit [facility] MEDICINE [address] [place] [address] Corin Doyle MD [address] [place] [address] 07/01/2025 3:30 PM EST Medication Management [facility] MEDICINE [address] [place] [address] Sam Peace, PharmD [address] [place] [address] documented as of this encounter Visit Diagnoses Not on filedocumented in this encounter Additional Health Concerns Assessment Noted Time PHQ-9 Depression Total Score: 0 11/24/19 23 3:58 PM EDT documented as of this encounter Care Teams Manager Financial Planning Relationship Specialty Start Date End Date Corin Doyle MD [address] [place] [address] PCP - General Family Medicine 07/18/18 Sam Peace, PharmD [address] [place] [address] Pharmacist Pharmacy 03/06/25 Danay Carmen Certified Nurses' AideTalent Acquisition Coordinator 12/09/23 Danay Carmen Certified Nurses' AideTalent Acquisition Coordinator 08/27/24 documented as of this encounter
--- OUTSIDE RECORDS SUMMARY | 2025-04-05 13:48 | XMS_ITS | Encounter Summary ---
Author Organization [employer] Address [address] [facility] [address] 7t [place] [address] Care Team Providers Care Hand Engraver Name Role Phone Corin Doyle MD Primary Care Provider [phone] Sam Peace PharmD Unavailable [phone] Reason for Visit * Reason Onset Date Comments Med Refill 11/01/2023 Encounter Details Date Type Department Care Team (Late st Contact Info) Description 11/01/2023 Refill [facility] 230 [place] [address] Corin Doyle MD [address] [place] [address] Social History Tobacco Use Types Packs/Day Years [...] PM EDT Office Visit [facility] [address] [place] [address] Corin Doyle MD [address] [place] [address] 07/01/2025 3:30 PM EST Medication Management [facility] [address] [place] [address] Sam Peace, PharmD [address] [place] [address] 24162 documented as of this encounter Visit Diagnoses Not on filedocumented in this encounter Additional Health Concerns Assessment Noted Time PHQ-9 Depression Total Score: 0 11/24/19 23 3:58 PM EDT documented as of this encounter Care Teams Hand Engraver Relationship Specialty Start Date End Date Corin Doyle MD [address] [place] [address] PCP - General Family Medicine 07/18/18 Sam Peace, PharmD [address] [place] [address] Pharmacist Pharmacy 03/06/25 Danay Carmen Photoengraving PrinterCyber Systems Engineer 12/09/23 Danay Carmen Photoengraving PrinterCyber Systems Engineer 08/27/24 documented as of this encounter
--- OUTSIDE RECORDS SUMMARY | 2025-04-05 13:48 | XMS_ITS | Encounter Summary ---
Author Organization [employer] Address 75 [facility] 7t [place] [address] Care Team Providers Care Performance Makeup Artist Name Role Phone Corin Doyle MD Primary Care Provider [phone] Sam Peace PharmD Unavailable [phone] Reason for Visit * Reason Onset Date Comments Med Refill 03/01/2025 Encounter Details Date Type Department Care Team (Late st Contact Info) Description 03/01/2025 Refill [facility] MEDICINE [address] [place] [address] Corin Doyel MD 230 [place] [address] Social History Tobacco Use Types Packs/Day Years [...] Description 05/06/2025 2:30 PM EDT Office Visit [facility] MEDICINE [address] [place] [address] Corin Doyle MD [address] [place] [address] 07/01/2025 3:30 PM EST Medication Management [facility] [address] [place] [address] Sam Peace PharmD [address] [place] [address] documented as of this encounter Visit Diagnoses Not on filedocumented in this encounter Additional Health Concerns Assessment Noted Time PHQ-9 Depression Total Score: 0 08/14/19 25 3:31 PM EST documented as of this encounter Care Teams Performance Makeup Artist Relationship Specialty Start Date End Date Corin Doyle MD [address] [place] [address] PCP - General Family Medicine 07/18/18 Sam Peace, ConchisD [address] [place] [address], [place] [address] Pharmacist Pharmacy 03/06/25 Danay Carmen Account CoordinatorReading Tutor 12/09/23 Danay Carmen Account CoordinatorReading Tutor 08/27/24 documented as of this encounter
--- OUTSIDE RECORDS SUMMARY | 2025-04-05 13:48 | XMS_ITS | Encounter Summary ---
Author Organization [employer] Address [address] [facility] [address] 7t [place] [address] Care Team Providers Care In House Counsel Name Role Phone Corin Doyle MD Primary Care Provider [phone] Sam Peace PharmD Unavailable [phone] Reason for Visit * Reason Onset Date Comments Med Refill 01/25/2024 Encounter Details Date Type Department Care Team (Late st Contact Info) Description 01/25/2024 Refill [facility] MEDICINE 230 [place] [address] Corin Doyle MD [address] [place] [address] Social History Tobacco Use Types Packs/Day Years [...] 05/06/2025 2:30 PM EDT Office Visit [facility] MEDICINE [address] [place] [address] Corin Doyle MD [address] [place] [address] 07/01/2025 3:30 PM EST Medication Management [facility] MEDICINE [address] [place] [address] Sam Peace, PharmD [address] [place] [address] documented as of this encounter Visit Diagnoses Not on filedocumented in this encounter Additional Health Concerns Assessment Noted Time PHQ-9 Depression Total Score: 0 11/24/19 23 3:58 PM EDT documented as of this encounter Care Teams In House Counsel Relationship Specialty Start Date End Date Corin Doyle MD [address] [place] [address] PCP - General Family Medicine 07/18/18 Sam Peace, PharmD [address] [place] [address] 31796 Pharmacist Pharmacy 03/06/25 Danay Carmen Demolition EngineerRestoration Technician 12/09/23 Danay Carmen Demolition EngineerRestoration Technician 08/27/24 documented as of this encounter
--- OUTSIDE RECORDS SUMMARY | 2025-04-05 13:48 | XMS_ITS | Encounter Summary ---
Author Organization [employer] Address [address] [facility] [address] 7t [place] [address] Care Team Providers Care Music Specialist Name Role Phone Corin Doyle MD Primary Care Provider [phone] Sam Peace PharmD Unavailable Reason for Visit * Reason Onset Date Comments chart prep 04/01/2025 Encounter Details Date Type Department Care Team ([facility] st Contact Info) Description 04/01/2025 Telephone [facility]INE 230 [place] [address] Karli Wells CNM 230 [place] [address] chart prep Social History Tobacco Use Types [...] Description 05/06/2025 2:30 PM EDT Office Visit [facility] [address] [place] [address] Corin Doyle MD [address] [place] [address] 07/01/2025 3:30 PM EST Medication Management [facility] [address] [place] [address] 615[address] Sam Peace, PharmD [address] [place] [address] 17582 documented as of this encounter Visit Diagnoses Not on filedocumented in this encounter Additional Health Concerns Assessment Noted Time PHQ-9 Depression Total Score: 0 01/28/20 25 3:31 PM EST documented as of this encounter Care Teams Music Specialist Relationship Specialty Start Date End Date Corin Doyle MD 230 [place] [address] PCP - General Family Medicine 07/18/18 Sam Peace, ConchisD [address] [place] [address] Pharmacist Pharmacy 03/06/25 Danay Carmen Sales Representative Wire RopeFelt Puller 12/09/23 Danay Carmen Sales Representative Wire RopeFelt Puller 08/27/24 documented as of this encounter
--- OUTSIDE RECORDS SUMMARY | 2025-04-05 13:48 | XMS_ITS | Encounter Summary ---
Author Organization [employer] Address [address] [facility] [address] 7t [place] [address] Care Team Providers Care Manager Delivery Name Role Phone Corin Doyle MD Primary Care Provider [phone] Sam Peace PharmD Unavailable [phone] Encounter Details Date Type Department Care Team ([facility] st Contact Info) Description 08/17/2024 Orders Only [facility] MED[facility]INE 230 [place], [place] [phone] Corin Doyle MD [address] [place] [address] Social History Tobacco Use Types Packs/Day Years [...] Description 05/06/2025 2:30 PM EDT Office Visit [facility] [address] [place] [address] Corin Doyle MD [address] [place] [address] 07/01/2025 3:30 PM EST Medication Management [address] [address] Sam Peace, Yulissa [address] [place] [address] documented as of this encounter Visit Diagnoses Not on filedocumented in this encounter Additional Health Concerns Assessment Noted Time PHQ-9 Depression Total Score: 0 08/14/19 25 3:31 PM EST documented as of this encounter Care Teams Manager Delivery Relationship Specialty Start Date End Date Corin Doyle MD [address] [place] [address]28 PCP - General Family Medicine 07/18/18 Sam Peace, PharmD [address] [place] [address] [phone] Pharmacist Pharmacy 03/06/25 Danay Carmen Business Management ManagerSheeter Machine Operator 12/09/23 Danay Camren Business Management ManagerSheeter Machine Operator 08/27/24 documented as of this encounter
--- OUTSIDE RECORDS SUMMARY | 2025-04-05 13:48 | XMS_ITS | Encounter Summary ---
Author Organization [employer] Address [address] [facility] [address] 7t [place] [address] Care Team Providers Care Quality Assurance Analyst Name Role Phone Corin Doyle MD Primary Care Provider [phone] Sam Peace PharmD Unavailable [phone] Encounter Details Date Type Department Care Team [...] 2:30 PM EDT Office Visit [facility] MEDICINE [address] [place] [address] Corin Doyle MD [address] [place] [address] 07/01/2025 3:30 PM EST Medication Management [facility] MEDICINE [address] [place] [address] Sam Peace, PharmD [address] [place] [address] 7[address]64 documented as of this encounter Visit Diagnoses Not on filedocumented in this encounter Additional Health Concerns Assessment Noted Time PHQ-9 Depression Total Score: 0 08/14/19 3:31 PM EST documented as of this encounter Care Teams Quality Assurance Analyst Relationship Specialty Start Date End Date Coirn Doyle MD [address] [place] [address] PCP - General Family Medicine 07/18/18 Sam Peace, PharmD [address] [place] [phone] Pharmacist Pharmacy 03/06/25 Danay Carmen Manager GroceryProver 12/09/23 Danay Carmen Manager GroceryProver 08/27/24 documented as of this encounter
--- OUTSIDE RECORDS SUMMARY | 2025-04-05 13:48 | XMS_ITS | Encounter Summary ---
Author Organization [employer] Address [address] [place] [address] Care Team Providers Care Lag Screwer Name Role Phone Corin Doyle MD Primary Care Provider [phone] Sam Peace PharmD Unavailable [phone] Reason for Visit * Reason Onset Date Comments Med Refill 11/02/2023 Encounter Details Date Type Department Care Team (Late st Contact Info) Description 11/02/[address] [facility] [address] [place] [address] Corin Doyle MD [address] [place] [address] Social History Tobacco Use Types Packs/Day Years [...] instructions back to me. Also sent on [employer] so pt has them written out since she is active on [employer] scheduled for 11/15 with ronks nurses for blood pressure check. Pt verbalized [...] Description 05/06/2025 2:30 PM EDT Office Visit [facility] [address] [place] [address] Corin Doyle MD [address] [place] [address] [phone] 07/01/2025 3:30 PM EST Medication Management [facility] [address], [place] [phone] Sam Peace, PharmD [address] [place] [address] [phone] documented as of this encounter Visit Diagnoses Not on filedocumented in this encounter Additional Health Concerns Assessment Noted Time PHQ-9 Depression Total Score: 0 11/24/19 23 3:58 PM EDT documented as of this encounter Care Teams Lag Screwer Relationship Specialty Start Date End Date Corin Doyle MD [address] [place] [address] [phone] PCP - General Family Medicine 07/18/18 Sam Peace, PharmD [address] [place] [address] [phone] Pharmacist Pharmacy 03/06/25 Danay Carmen Motion Picture ProjectionistField Service Analyst 12/09/23 Danay Carmen Motion Picture ProjectionistField Service Analyst 08/27/24 documented as of this encounter
--- OUTSIDE RECORDS SUMMARY | 2025-04-05 13:48 | XMS_ITS | Clinical Summary ---
Author Organization [employer] Address [address] [facility] 7t [place] [address] Care Team Providers Care Ccu Nurse Name Role Phone Corin Doyle MD Primary Care Provider [phone] Sam Peace PharmD Unavailable [phone] Allergies Active Allergy Reactions Criticality Noted Date [...] BY MOUTH DAILY WHEN DIRECTED BY HEALTH TANK TERMINAL GAUGER. DO NOT CRUSH OR CHEW. 30 tablet [...] by mouth daily when directed by health day care supervisor. Do not crush or chew. 30 tablet [...] -Not on any medication -Not connected with [facility] provider Asthma 11/19/2013 Assessment & Plan (01/02/2025 12:52 PM EDT): -Last exacerbation in Feb 2022. Seen in [facility]. Rx prednisone and azithromycin. Negative COVID -Followed by allergy / front office specialist -Continue Symicort -Continue montelukast -Continue albuterol neb and inhaler prn --Pt uses nebulizer treatment at home because her symptoms respond better and faster to nebulizer treatment Assessment & Plan (08/14/2023 2:52 PM EST): -Last exacerbation in Feb 2022. Seen in [facility]. Rx prednisone and azithromycin. Negative COVID -Followed by allergy / front office specialist -Continue Symicort -Continue montelukast -Continue albuterol neb and inhaler prn --Pt uses nebulizer treatment at home because her symptoms respond better and faster to nebulizer treatment Assessment & Plan (11/23/2022 4:53 PM EDT): -Last exacerbation in Feb 2022. Seen in [facility]. Rx prednisone and azithromycin. Negative COVID -Followed by allergy / front office specialist -Continue Symicort -Continue montelukast -Continue albuterol neb and inhaler prn --Pt uses nebulizer treatment at home because her symptoms respond better and faster to nebulizer treatment Assessment & Plan (07/25/2022 1:55 PM EST): -Last exacerbation in Feb 2022. Seen in [facility]. Rx prednisone and azithromycin. Negative COVID -Followed by allergy / front office specialist -Continue Symicort -Continue montelukast -Continue albuterol neb and inhaler prn --Pt uses nebulizer treatment at home because her symptoms respond better and faster to nebulizer treatment Allergic rhinitis 12/06/2012 Assessment & Plan (01/02/2025 12:51 PM EDT): -Previously followed by Dr. Whitehead, allergy / front office specialist -Continue loratadine -Continue montelukast -Continue immunotherapy -Continue fluticasone nasal Assessment & Plan (08/14/2023 3:00 PM EST): -Previously followed by Dr. Whitehead, allergy / front office specialist -Continue loratadine -Continue montelukast -Continue immunotherapy -Continue fluticasone nasal Assessment & Plan (11/29/2022 7:45 AM EDT): -Previously followed by Dr. Whitehead, allergy / front office specialist -Continue loratadine -Continue montelukast -Continue immunotherapy -Continue fluticasone nasal Assessment & Plan (07/25/2022 2:06 PM EST): -Followed by Dr. Whitehead, allergy / front office specialist -Continue loratadine -Continue montelukast -Continue immunotherapy -Continue fluticasone nasal Chronic back pain 12/06/2012 Assessment & Plan (07/25/2022 2:07 PM EST): -Previously evaluated by shipyard painter apprentice at [facility] -s/p L4 TFESI -Continue back exercise at [...] nml sinus rhythm, borderline qtc -refer to sap integration architect for eval Encounters Date Type Department Care Team Description 04/02/2025 2:45 PM EDT Procedure Visit [facility] [address] [place] [address] Karli Wells CNM Cervical cancer screening (Primary Dx); Breast pain, right; Unspecified dyspareunia; Breast cyst, left; Cervical polyp; Perimenopause 04/02/2025 Orders Only [facility] [address] [place] [address] Karli Wells CNM 04/02/2025 Travel 04/02/2025 Results Follow-Up [facility] [place] [address] Corin Doyle MD Basic Metabolic Panel, Magnesium 04/01/2025 Orders Only [facility] [place] [address] Corin Doyle MD Primary hypertension (Primary Dx) 04/01/2025 Telephone [facility] [place] [address] Corin Doyle MD 04/01/2025 Travel 04/01/2025 Telephone [facility] [place] [address] Karli Wells CNM chart prep 03/24/2025 Refill [facility] [address] [place] [address] Corin Doyle MD 03/23/2025 Refill [facility] [address] [place] [address] Corin Doyle MD 03/20/2025 Refill [facility] [address] [place] [address] Gabriela López MD 03/20/2025 Refill [facility] [address] [place] [address] Corin Doyle MD 03/19/2025 Refill [facility] [address] [place], [place] [address] Corin Doyle MD 03/13/2025 Refill [facility] [address] [place], [place] [address] Corin Doyle MD 03/06/2025 Refill [facility] [address] [place], [place] [address] Corin [facility] MD [facility] 03/01/2025 Results Follow-Up [facility] [place], [place] [address] Corin Doyle MD Basic Metabolic Panel 03/01/2025 Orders Only [facility] [place], [place] [address] Corin Doyle MD Hypokalemia (Primary Dx) 03/01/2025 Orders Only [facility] [place], [place] [address] Corin Doyle MD 03/01/2025 Travel 03/01/2025 Refill [facility] [place], [place] [address] Corin Doyle MD 02/26/2025 Travel 02/24/2025 Refill [facility] [place], [place] [address] Corin Doyle MD 02/15/2025 3:30 PM EDT Clinical Support [facility] [place], [place] [address] Saranya Burt RN Primary hypertension 02/15/2025 Telephone [facility] [place], [place] [address] Corin Doyle MD 02/15/2025 Travel 02/14/2025 Travel 02/11/2025 3:40 PM EDT Office Visit [facility] [place], [place] [address] Gabriela López MD Primary osteoarthritis of right knee (Primary Dx); Acute hip pain, right 02/11/2025 Travel 02/07/2025 Refill [facility] [address] [place] [address] Corin Doyle MD 2025 3:30 PM EDT Clinical Support [facility] [address] [place] [address] Blanca Rendon RN Primary hypertension 2025 Travel 01/31/2025 Travel 01/30/2025 Refill [facility] [address] [place] [address] Corin Doyle MD 01/23/2025 Refill [facility] [address] [place] [address] Corin Doyle MD 01/21/2025 Telephone [facility] [address] [place] [address] Corin Doyle MD Prior Authorization ( PA: Kellen) 01/15/2025 2:30 PM EDT Office Visit [facility] [address] [place] [address] Albert, Megan, OD Presbyopia (Primary Dx) 01/15/2025 Travel from Last 3 Months Immunizations Immunization [...] 05/06/2025 2:30 PM EDT Office Visit [facility] [address] [place] [phone] Corin Doyle MD [address] [place] [address] 07/01/2025 3:30 PM EST Medication Management [facility] [address] [place] [phone] Sam Peace, PharmD [address] [place] [address] Health Maintenance Due Date Last Done Comments CT Colonography 1975 Colonoscopy 1975 Colorectal Cancer Screening 1975 FIT DNA/Cologuard 1975 FIT 1975 FOBT 1975 Sigmoidoscopy 1975 Pap Smear 01/31/1997 Dental Oral Exam 03/02/2024 09/01/2023, 05/2022, 02/02/2019, [...] 08/14/2029 08/14/2024, 07/19, 07/23/2020, Additional history exists Cervical Cancer Screening 04/02/2030 HPV/Cotest 04/02/2030 04/02/2025, 11/25/2017 DTaP/Tdap/Td Vaccines (3 - Td or Tdap) [...] LOW/HIGH RISK Routine 04/02/2025 12:00 AM EDT MAGNESIUM Routine 04/01/2025 3:26 PM EDT Hypokalemia [...] GENERATION W/RFL Routine 07/23/2020 12:19 PM EST from Last 3 Months or Most Recently Relevant to Health Maintenance Results * HPV DNA, Low/High Risk (04/02/2025 12:00 AM EDT) HPV High Risk Negative Negative [facility] HPV Genotype 16 Negative Negative [facility] HPV Genotype 18 Negative Negative [facility] Comment:HPV testing performe d at [facility] (CLIA#[id number]), [address] [place] [phone].Testing for HPV was performed using the Laura [...] detected. 04/02/2025 04/03/2025 11: 40 AM EDT Karli Wells CNM LAB BLOOD ORDERABLES Tegan l Result Performing Organization Address [facility]/ZIP Co de Phone Number [facility] [address] [place] [phone] * Magnesium (04/01/2025 3:26 PM EDT) Pathologist [facility] Magnesium 2.1 1.6 - 2.6 mg/dL [facility] Blood Venous blood specimen / Unknown 04/01/2025 3:26 PM EDT 04/01/2025 4:08 PM EDT us Corin Doyle MD LAB BLOOD ORDERABLES Final Resul t Performing Organization Address [facility]/ZIP Co de Phone Number [facility] [address] [place] [address] [phone] * (ABNORMAL) Basic Metabolic Panel (04/01/2025 3:26 PM EDT) Only the most recent of2 resultswithin the time period is included. Sodium 144 135 - 145 mmol/L [facility] Potassium 3.6 3.3 - 5.1 mmol/L [facility] Chloride 109(H) 96 - 108 mmol/L [facility] Carbon Dioxide 29 22 - 29 mmol/L [facility] Anion Gap 10(L) 12 - 20 [facility] Urea Nitrogen (BUN) 15 9 - 16 mg/dL [facility] Creatinine, Serum 0.81 0.5 - 1.4 mg/dL [facility] Estimated Glomerular Filt Rate >60 [facility] Comment:Chronic Kidney Disea se: Estimated GFR < 60 mL/min/1.15u7Smerco Kidney Disease: Estimated GFR < 15 mL/min/1.73m2 Glucose 87 60 - 115 mg/dL [facility] Calcium 8.9 8.4 - 10.2 mg/dL [facility] Blood Venous blood specimen / Unknown 04/01/2025 3:26 PM EDT 04/01/2025 4:08 PM EDT us Corin Doyle MD LAB BLOOD ORDERABLES Final Resul t [facility] [address] [place] [address] [phone] * Lipid Panel with Reflex to Direct LDL (08/14/2024 4:05 PM EST) Triglycerides 114 <150 mg/dL [facility] Comment:Desirable Triglyceri de: less than 150 mg/dLBorderline High Triglyceride 150-199 mg/dLHigh Triglyceride: 200-499 mg/dLVery High Triglyceride: greater than or equal to 5OO mg/dL Cholesterol 146 <200 mg/dL [facility] Comment:Desirable Cholestero l: less than 200 mg/dLBorderline High Cholesterol: 200-239 mg/dLHigh Cholesterol: greater than 239 mg/dL LDL Cholesterol Calculated 83 <100 mg/dL [facility] Comment:Desirable LDL: less than 100 mg/dLNear Optimal/Above Optimal LDL: 110- 129 mg/dLBorderline High LDL: 130-159 mg/dLHigh LDL: 160-189 mg/dLVery High LDL: greater than or equal to 190 mg/dL HDL Cholesterol 41 >40 mg/dL [facility] Comment:Desirable HDL: great er than 40 mg/dL Note: This HDL assay may give artificially low results in patients with liver disease. Blood 08/14/2024 4:05 PM EST 08/14/2024 5:33 PM EST Corin Doyle MD LAB BLOOD ORDERABLES Final Resul t [facility] [address] [place] [phone] * BI US Breast Limited Left (01/26/2024 3:08 PM EDT) Anatomical Region Laterality Modality Breast Left Ultrasound 01/26/2024 3:08 PM EDT Narrative 01/26/2024 4:54 PM EDT [address] [place] [address] Ultrasound Report Signed Patient: Janelle León MR#: [id number] : 1975 Acct:[id number] Age/Sex: 48 / F ADM Date: 01/26/24 Loc: HO.MAMMO Attending Dr: Corin Doyle MD Ordering Physician: Corin Doyle MD Date of Service: 01/26/24 Procedure(s): US breast LT limited mamm only Accession Number(s): [id number] cc: Corin Doyle MD EXAMINATION: MM DIAGNOSTIC [...] in OV> 01/26/24 1651 DD/ 1508 TD/TT: Application Performance Engineer: Procedure Note Donotuseinterpreter, Image - 01/26/2024 [facility] [address] [place] [address] Ultrasound Report Signed Patient: Janelle León GMR#: [id number] : 1975Acct:[id number] Age/Sex: 48 / FADM Date: 01/26/24 Loc: [facility] Attending Dr: Corin Doyle MD Ordering Physician: Corin Doyle MD Date of Service: 01/26/24 Procedure(s): US breast LT limited mamm only Accession Number(s): [id number] cc: Corin Doyle MD EXAMINATION: MM DIAGNOSTIC [...] in OV> 01/26/24 1651 DD/ 1508 TD/TT: Application Performance Engineer: us Corin Doyle MD IMG US PROCEDURES Final Result * Hepatitis A,B,C Profile (11/11/2023 8:41 AM EDT) Hepatitis A IgM Nonreactive Nonreactive [facility] Comment:IgM antibodies to GUZMÁN V not detected; does not exclude earlyacute or recovered HAV infection. ~Hepatitis B Surface Antibody REACTIVE Nonreactive [facility] Comment:REACTIVE: > 11.99 mI U/mL Hepatitis B Core Antibody Nonreactive Nonreactive [facility] Hepatitis C Antibody Nonreactive Nonreactive [facility] Comment:Antibodies to HCV no t detected; does not exclude early acuteHCV infection. Hepatitis B Surface Ag Negative Negative [facility] Blood Venous blood specimen / Unknown 11/11/2023 8:41 AM EDT 11/11/2023 11:40 AM EDT Corin Doyle MD LAB BLOOD ORDERABLES Final Resul t [facility] [address] [place] [phone] * HIV 1/2 ANTIGEN/ANTIBODY,FOURTH GENERATION W/RFL [...] purpose. For additional information please refer to http://education.[employer].PayStand/faq/OKA314 (This link is being provided for informational/ educational purposes only.) The performance of this assay has not been clinically validated in patients less than 2 years old. 07/23/2020 12:1 9 PM EST Corin Doyle MD LAB BLOOD ORDERABLES Final Resul t [facility] [address] from Last 3 Months or Most Recently Relevant to Health Maintenance Insurance * Guarantor: Janelle León Account Type Relation to Patient Date of Phone Billing Address Personal/Family Self [address] [place] [address] [place] [facility] MEDICAID STAND ADULT * Guarantor: Janelle León Account Type Relation to Patient Date of Phone Billing Address Personal/Family Self [address] [place] [address] * Guarantor: Janelle León Account Type Relation to Patient Date of Phone Billing Address Personal/Family Self [address] [place] [address] * Guarantor: Janelle León Account Type Relation to Patient Date of Phone Billing Address Personal/Family Self [address] [place] [address] Care Teams Ccu Nurse Relationship Specialty Start Date End Date Corin Doyle MD [address] [place] [address] PCP - General Family Medicine 07/18/18 Sam Peace, PharmD [address] [place] [address] Pharmacist Pharmacy 03/06/25 Danay Carmen Patternmaker PlasterAssembler [employer] 12/09/23 Danay Carmen Patternmaker PlasterAssembler [employer] 08/27/24
--- OUTSIDE RECORDS SUMMARY | 2025-04-05 13:48 | XMS_ITS | Encounter Summary ---
Author Organization [employer] Address [address] [place] [address] Care Team Providers Care Trash Collector Name Role Phone Corin Doyle MD Primary Care Provider [phone] Sam Peace PharmD Unavailable [phone] Encounter Details Date Type Department Care Team [...] Description 05/06/2025 2:30 PM EDT Office Visit [facility] [address] [place] [phone] Corin Doyle MD [address] [place] [phone] 07/01/2025 3:30 PM EST Medication Management [facility] [address] [place] [phone] Sam Peace, PharmD [address] [place] [phone] documented as of this encounter Visit Diagnoses Not on filedocumented in this encounter Additional Health Concerns Assessment Noted Time PHQ-9 Depression Total Score: 0 08/14/19 3:31 PM EST documented as of this encounter Care Teams Trash Collector Relationship Specialty Start Date End Date Corin Doyle MD [address] [place] [phone] PCP - General Family Medicine 07/18/18 Sam Peace, PharmD [address] [place] [phone] Pharmacist Pharmacy 03/06/25 Danay Carmen Sr. Merchandise PlannerPrinting Assistant 12/09/23 Danay Carmen Sr. Merchandise PlannerPrinting Assistant 08/27/24 documented as of this encounter
--- OUTSIDE RECORDS SUMMARY | 2025-04-05 13:48 | XMS_ITS | Encounter Summary ---
Author Organization [employer] Address [address] 7t [place] [address] Care Team Providers Care Conflicts Analyst Name Role Phone Corin Doyle MD Primary Care Provider [phone] Sam Peace PharmD Unavailable Encounter Details Date Type Department Care Team ([facility] st Contact Info) Description 05/04/2024 Orders Only [facility] [address] [place], [place] [phone] Corin Doyle MD [address] [place] [address] Primary hypertension (Primary Dx); Acquired hypothyroidism; Hypokalemia; [...] Description 05/06/2025 2:30 PM EDT Office Visit [address] [address] Corin Doyle MD [address] [place] [address] 07/01/2025 3:30 PM EST Medication Management [address] [address] Sam Peace, PharmD [address] [place] [address] documented as of this encounter Procedures Procedure [...] 4:05 PM EST) Creatinine, Urine 312.90 mg/dL [facility] Microalbumin Urine 15.0 mg/L [facility] Microalbum Creatinine Ratio Ur 4.7 <30 ug/mg cr [facility] Comment:Albumin/Creatinine R atio Reference Ranges: Normal: < 30 ug/mg creatinine Microalbuminuria: 30 - 300 ug/mg creatinineClinical Albuminuria: > 300 ug/mg creatinine Urine 08/14/2024 4:05 PM EST 08/14/2024 5:43 PM EST us Corin Doyle MD LAB URINE ORDERABLES Final Resul t [facility] [address] [place] [phone] * Hemoglobin A1c (08/14/2024 4:05 PM EST) Hemoglobin A1c 5.1 <6.0 % [facility] Comment:Hemoglobin A1C Refer ence Range Adults: 4.8 - 6.0 % Non diabetic: < 6.0 % Goal: < 7.0 %Additional Action Suggested: > 8.0 %Note: Hemoglobin A1c results are invalid for patients with abnormal amounts of HbF. Blood transfusions may impact the HbA1c concentration in the patient sample. Estimated Average Glucose 100 mg/dL [facility] Comment:eAG = Estimated ave rage glucose which is %A1C expressed asaverage glucose, using the formula of the Z6D-YegypyuNkxiijf Glucose study (ADAG), Diabetes Care, Vol.31,#8,Feb. 2007 Blood Venous blood specimen / Unknown 08/14/2024 4:05 PM EST 08/14/2024 5:33 PM EST Corin Doyle MD LAB BLOOD ORDERABLES Final Resul t Performing Organization Address [facility] Co de Phone Number [facility] [address] [place] [phone] * Lipid Panel with Reflex to Direct LDL (08/14/2024 4:05 PM EST) Triglycerides 114 <150 mg/dL [facility] Comment:Desirable Triglyceri de: less than 150 mg/dLBorderline High Triglyceride 150-199 mg/dLHigh Triglyceride: 200-499 mg/dLVery High Triglyceride: greater than or equal to 5OO mg/dL Cholesterol 146 <200 mg/dL [facility] Comment:Desirable Cholestero l: less than 200 mg/dLBorderline High Cholesterol: 200-239 mg/dLHigh Cholesterol: greater than 239 mg/dL LDL Cholesterol Calculated 83 <100 mg/dL [facility] Comment:Desirable LDL: less than 100 mg/dLNear Optimal/Above Optimal LDL: 110- 129 mg/dLBorderline High LDL: 130-159 mg/dLHigh LDL: 160-189 mg/dLVery High LDL: greater than or equal to 190 mg/dL HDL Cholesterol 41 >40 mg/dL [facility] Comment:Desirable HDL: great er than 40 mg/dL Note: This HDL assay may give artificially low results in patients with liver disease. Blood 08/14/2024 4:05 PM EST 08/14/2024 5:33 PM EST Corin Doyle MD LAB BLOOD ORDERABLES Final Resul t Performing Organization Address [facility] Co de Phone Number [facility] [address] [place] [phone] * Magnesium (08/14/2024 4:05 PM EST) Magnesium 2.2 1.6 - 2.6 mg/dL [facility] Blood Venous blood specimen / Unknown 08/14/2024 4:05 PM EST 08/14/2024 5:33 PM EST Corin Doyle MD LAB BLOOD ORDERABLES Final Resul t Performing Organization Address [facility] Co de Phone Number [facility] [address] [place] [phone] * Uric acid (08/14/2024 4:05 PM EST) Pathologist [facility] Uric Acid 4.5 2.4 - 5.7 mg/dL [facility] Blood Venous blood specimen / Unknown 08/14/2024 4:05 PM EST 08/14/2024 5:33 PM EST Corin Doyle MD LAB BLOOD ORDERABLES Final Resul t Performing Organization Address [facility] de Phone Number [facility] [address] [place] [phone] * TSH with Reflex to Free T4 (08/14/2024 4:05 PM EST) Pathologist [facility] TSH reflex Free T4 3.48 0.32 - 4.0 uIU/mL [facility] Blood 08/14/2024 4:05 PM EST 08/14/2024 5:33 PM EST Corin Doyle MD LAB BLOOD ORDERABLES Final Resul t Performing Organization Address [facility] Phone Number [facility] [address] [place] [phone] * (ABNORMAL) Comprehensive Metabolic Panel (08/14/2024 4:05 PM EST) Pathologist [facility] Sodium 143 135 - 145 mmol/L [facility] Potassium 3.1(L) 3.3 - 5.1 mmol/L [facility] Chloride 106 96 - 108 mmol/L [facility] Carbon Dioxide 30(H) 22 - 29 mmol/L [facility] Anion Gap 10(L) 12 - 20 [facility] Urea Nitrogen (BUN) 14 9 - 16 mg/dL [facility] Creatinine, Serum 0.70 0.5 - 1.4 mg/dL [facility] Estimated Glomerular Filt Rate >60 [facility] Comment:Chronic Kidney Disea se: Estimated GFR < 60 mL/min/1.48d5Dpdzbc Kidney Disease: Estimated GFR < 15 mL/min/1.73m2 Glucose 72 60 - 115 mg/dL [facility] Calcium 9.2 8.4 - 10.2 mg/dL [facility] Bilirubin, Total 0.2 0.0 - 1.0 mg/dL [facility] Aspartate Amino Transferase 21 5 - 31 U/L [facility] Alanine Aminotransferase 24 0 - 31 U/L [facility] Total Protein 7.7 6.5 - 8.0 g/dL [facility] Albumin Level 4.1 3.5 - 5.0 g/dL [facility] Alkaline Phosphatase 109 39 - 117 U/L [facility] Blood Venous blood specimen / Unknown 08/14/2024 4:05 PM EST 08/14/2024 5:33 PM EST us Corin Doyle MD LAB BLOOD ORDERABLES Final Resul t [facility] [address] [place] [phone] [phone] documented in this encounter Visit Diagnoses [...] documented as of this encounter Care Teams Conflicts Analyst Relationship Specialty Start Date End Date Corin Doyle MD [address] [place] [address] PCP - General Family Medicine 07/18/18 Sam Peace, PharmD [address] [place] [address] Pharmacist Pharmacy 03/06/25 Danay Carmen Manufacturing Engineering DirectorRn Clinician 12/09/23 Danay Carmen Manufacturing Engineering DirectorRn Clinician 08/27/24 documented as of this encounter
--- OUTSIDE RECORDS SUMMARY | 2025-04-05 13:48 | XMS_ITS | Encounter Summary ---
Author Organization [employer] Address [address] 7t [place] [address] Care Team Providers Care Silver Holloware Assembler Name Role Phone Corin Doyle MD Primary Care Provider [phone] Sam Peace PharmD Unavailable [phone] Encounter Details Date Type Department Care Team ([facility] Contact Info) Description 04/02/2025 Results Follow-Up [facility] MED[facility]INE 230 [place] [address] Corin Doyle MD [address] [place], [place] [phone] Basic Metabolic Panel, Magnesium Social History Tobacco [...] Description 05/06/2025 2:30 PM EDT Office Visit [facility]INE [address] [place] [address] Corin Doyle MD [address] [place] [address] 07/01/2025 3:30 PM EST Medication Management [address] [address] Sam Peace, Yulissa [address] [place] [address] documented as of this encounter Visit Diagnoses Not on filedocumented in this encounter Additional Health Concerns Assessment Noted Time PHQ-9 Depression Total Score: 0 08/14/19 25 3:31 PM EST documented as of this encounter Care Teams Silver Holloware Assembler Relationship Specialty Start Date End Date Corin Doyle MD [address] [place] [address] PCP - General Family Medicine 07/18/18 Sam Peace, PharmD [address] [place] [address] [phone] Pharmacist Pharmacy 03/06/25 Danay Carmen Director Of Managed CareEyeglass Cutter 12/09/23 Danay Carmen Director Of Managed CareEyeglass Cutter 08/27/24 documented as of this encounter
--- OUTSIDE RECORDS SUMMARY | 2025-04-05 13:48 | XMS_ITS | Encounter Summary ---
Author Organization [employer] Address [address] [facility] [facility] [facility] [address] 7t [place] [address] Care Team Providers Care Machine Feeder Raw Stock Name Role Phone Corin Doyle MD Primary Care Provider [phone] Sam Peace PharmD Unavailable [phone] Reason for Visit * Reason Onset Date Comments Med Refill 11/14/2023 Encounter Details Date Type Department Care Team (Late st Contact Info) Description 11/14/2023 Refill [facility]INE 230 [place] [address] Corin Doyle MD 230 [place] [address] Rash Social History Tobacco Use Types Packs/Day [...] Description 05/06/2025 2:30 PM EDT Office Visit [facility] MED[facility]INE [address] [place] [place] [address] Corin Doyle MD [address] [place] [address] 07/01/2025 3:30 PM EST Medication Management [facility] [address] [place] [place] [address] Sam Peace, PharmD [address] [place] [address] documented as of this encounter Visit Diagnoses Diagnosis Rash Rash and other nonspecific skin eruption documented in this encounter Additional Health Concerns Assessment Noted Time PHQ-9 Depression Total Score: 0 11/24/19 23 3:58 PM EDT documented as of this encounter Care Teams Machine Feeder Raw Stock Relationship Specialty Start Date End Date Corin Doyle MD [address] [place] [address] PCP - General Family Medicine 07/18/18 Sam Peace, PharmD [address] [place] [address] [phone] Pharmacist Pharmacy 03/06/25 Danay Carmen Financial Advisor TraineeDry Cleaning Manager 12/09/23 Danay Carmen Financial Advisor TraineeDry Cleaning Manager 08/27/24 documented as of this encounter
--- OUTSIDE RECORDS SUMMARY | 2025-04-05 13:48 | XMS_ITS | Encounter Summary ---
Author Organization [employer] Address [address] [facility] 7t [place] [address] Care Team Providers Care Event Security Officer Name Role Phone Corin Doyle MD Primary Care Provider [phone] Sam Peace PharmD Unavailable [phone] Reason for Visit * Reason Onset Date Comments Med Refill 01/30/2025 Encounter Details Date Type Department Care Team (Late st Contact Info) Description 01/30/[address] [facility] 230 [place] [address] Corin Doyle MD 230 [place] [address] Social History Tobacco Use Types Packs/Day Years [...] 05/06/2025 2:30 PM EDT Office Visit [facility] [address] [place] [address] Corin Doyle MD [address] [place] [address] 07/01/2025 3:30 PM EST Medication Management [facility] [address] [place] [address] Sam Peace PharmD [address] [place] [address] documented as of this encounter Visit Diagnoses Not on filedocumented in this encounter Additional Health Concerns Assessment Noted Time PHQ-9 Depression Total Score: 0 08/14/19 25 3:31 PM EST documented as of this encounter Care Teams Event Security Officer Relationship Specialty Start Date End Date Corin Doyle MD [address] [place] [address] PCP - General Family Medicine 07/18/18 Sam Peace, ConchisD [address] [place] [address], [place] [address] Pharmacist Pharmacy 03/06/25 Danay Carmen Camelid Fiber SorterBung Dropper 12/09/23 Danay Carmen Camelid Fiber SorterBung Dropper 08/27/24 documented as of this encounter
--- OUTSIDE RECORDS SUMMARY | 2025-04-05 13:48 | XMS_ITS | Encounter Summary ---
Author Organization [employer] Address [address] [facility] [address] [facility] [address] 7t [place] [address] Care Team Providers Care Rail Car Unloader Name Role Phone Corin Doyle MD Primary Care Provider [phone] Sam Peace PharmD Unavailable [phone] Reason for Visit * Reason Comments Med Refill Encounter Details Date Type Department Care Team ([facility] st Contact Info) Description 11/07/2023 Refill [facility] 230 [place], [place] [phone] Eddie Guerrero MD 230 [place], [place] [phone] Social History Tobacco Use Types Packs/Day Years [...] 05/06/2025 2:30 PM EDT Office Visit [facility] [address] [place] [address] Corin Doyle MD [address] [place] [address] 07/01/2025 3:30 PM EST Medication Management [facility] [address] [place] [address] Sam Peace, PharmD [address] [place] [address] documented as of this encounter Visit Diagnoses Not on filedocumented in this encounter Additional Health Concerns Assessment Noted Time PHQ-9 Depression Total Score: 0 11/24/19 23 3:58 PM EDT documented as of this encounter Care Teams Rail Car Unloader Relationship Specialty Start Date End Date Corin Doyle MD [address] [place] [address] PCP - General Family Medicine 07/18/18 Sam Peace, PharmD [address] [place] [address] [phone] Pharmacist Pharmacy 03/06/25 Danay Carmen Jumpbasting Canvas BasterLaundry Aid 12/09/23 Danay Carmen Jumpbasting Canvas BasterLaundry Aid 08/27/24 documented as of this encounter
--- OUTSIDE RECORDS SUMMARY | 2025-04-05 13:48 | XMS_ITS | Encounter Summary ---
Author Organization [employer] Address [address] 7t [place] [address] Care Team Providers Care Overhead Irrigator Name Role Phone Corin Doyle MD Primary Care Provider Sam Peace PharmD Unavailable [phone] Reason for Visit * Reason Onset Date Comments Med Refill 04/02/2024 Encounter Details Date Type Department Care Team (Late st Contact Info) Description 04/02/2024 Refill [facility] 230 [place] [address] Corin Doyle MD 230 [place] [address] Social History Tobacco Use Types Packs/Day Years [...] Office Visit [facility]INE [address] [place] [address] Corin Doyle MD [address] [place] [address] 07/01/2025 3:30 PM EST Medication Management [facility] [address] [place] [address] Sam Peace, PharmD [address] [place] [address] documented as of this encounter Visit Diagnoses Not on filedocumented in this encounter Additional Health Concerns Assessment Noted Time PHQ-9 Depression Total Score: 0 11/24/19 23 3:58 PM EDT documented as of this encounter Care Teams Overhead Irrigator Relationship Specialty Start Date End Date Corin Doyle MD [address] [place] [address] PCP - General Family Medicine 07/18/18 Sam Peace, PharmD [address] [place] [address] Pharmacist Pharmacy 03/06/25 Danay Carmen Shirt FolderEnterprise Sales Executive 12/09/23 Danay Carmen Shirt FolderEnterprise Sales Executive 08/27/24 documented as of this encounter
--- OUTSIDE RECORDS SUMMARY | 2025-04-05 13:49 | XMS_ITS | Encounter Summary ---
Author Organization [employer] Address [address] [facility] 7t [place] [address] Care Team Providers Care Energy Auditor Name Role Phone Corin Doyle MD Primary Care Provider [phone] Sam Peace PharmD Unavailable [phone] Reason for Visit * Reason Comments Med Refill Encounter Details Date Type Department Care Team ([facility] st Contact Info) Description 03/19/2025 Refill [facility] 230 [place], [place] [phone] Corin Doyle MD 230 [place] [address] Social History Tobacco Use Types Packs/Day Years [...] EDT Office Visit [facility] [address] [place] [address] Corin Doyle MD [address] [place] [address] 07/01/2025 3:30 PM EST Medication Management [address] [address] Sam Peace, Yulissa [address] [place] [address] documented as of this encounter Visit Diagnoses Not on filedocumented in this encounter Additional Health Concerns Assessment Noted Time PHQ-9 Depression Total Score: 0 08/14/19 25 3:31 PM EST documented as of this encounter Care Teams Energy Auditor Relationship Specialty Start Date End Date Corin Doyle MD [address] [place] [address] PCP - General Family Medicine 07/18/18 Sam Peace, ConchisD [address] [place] [address] Pharmacist Pharmacy 03/06/25 Danay Carmen City CouncilmanSeater Assembler 12/09/23 Danay Carmen City CouncilmanSeater Assembler 08/27/24 documented as of this encounter
--- OUTSIDE RECORDS SUMMARY | 2025-04-05 13:49 | XMS_ITS | Encounter Summary ---
Author Organization [employer] [facility] Address [address] [place] [address] 7 [place] [address] Care Team Providers Care Lighting Specialist Name Role Phone Corin Doyle MD Primary Care Provider [phone] Sam Peace PharmD Unavailable [phone] Encounter Details Date Type Department Care Team [...] Description 05/06/2025 2:30 PM EDT Office Visit [facility] MED[facility]INE [address] [place] [address] Corin Doyle MD 230 [place] [address] 07/01/2025 3:30 PM EST Medication Management [facility] [address] [place] [address] Sam Peace, PharmD [address] [place] [address] documented as of this encounter Visit Diagnoses Not on filedocumented in this encounter Care Teams Lighting Specialist Relationship Specialty Start Date End Date Corin Doyle MD [address] [place] [address] PCP - General Family Medicine 07/18/18 Sam Peace, PharmD [address] [place] [address] Pharmacist Pharmacy 03/06/25 Danay Carmen Duralumin MechanicCompliance Representative Dealer 12/09/23 Danay Carmen Duralumin MechanicCompliance Representative Dealer 08/27/24 documented as of this encounter
--- OUTSIDE RECORDS SUMMARY | 2025-04-05 13:49 | XMS_ITS | Encounter Summary ---
Author Organization [employer] Address [address] [facility] 7t [place] [address] Care Team Providers Care Conference Assistant Name Role Phone Corin Doyle MD Primary Care Provider [phone] Sam Peace PharmD Unavailable [phone] Reason for Visit * Reason Onset Date Comments Med Refill 03/13/2025 Encounter Details Date Type Department Care Team (Late st Contact Info) Description 03/13/2025 Refill [facility] MED[facility]INE 230 [place] [address] Corin Doyle MD 230 [place] [address] Social History Tobacco Use Types Packs/Day Years [...] Description 05/06/2025 2:30 PM EDT Office Visit [facility] [address] [place] [address] Corin Doyle MD [address] [place] [address] 07/01/2025 3:30 PM EST Medication Management [facility] [address] [place] [address] Sam Peace PharmD [address] [place] [address] documented as of this encounter Visit Diagnoses Not on filedocumented in this encounter Additional Health Concerns Assessment Noted Time PHQ-9 Depression Total Score: 0 08/14/19 25 3:31 PM EST documented as of this encounter Care Teams Conference Assistant Relationship Specialty Start Date End Date Corin Doyle MD [address] [place] [address] PCP - General Family Medicine 07/18/18 Sam Peace, ConchisD [address] [place] [address], [place] [address] Pharmacist Pharmacy 03/06/25 Danay Carmen Vibration AnalystLead Informatica Developer 12/09/23 Danay Carmen Vibration AnalystLead Informatica Developer 08/27/24 documented as of this encounter
--- OUTSIDE RECORDS SUMMARY | 2025-04-05 13:49 | XMS_ITS | Encounter Summary ---
Author Organization [employer] Address [address] [facility] 7t [place] [address] Care Team Providers Care Public Address Announcer Name Role Phone Corin Doyle MD Primary Care Provider [phone] Sam Peace PharmD Unavailable [phone] Reason for Visit * Reason Onset Date Comments Referral 01/26/2023 Encounter Details Date Type Department Care Team ([facility] st Contact Info) Description 01/26/2023 Telephone [facility] 230 [place] [address] Corin Doyle MD [address] [place] [address] Referral Social History Tobacco Use Types Packs/Day [...] - 01/26/2023 3:24 PM EDT Tc from [facility] with ICP requesting a referral for therapy. States pt is having depression/anxiety. Pt is also hearing voices and seeing a man documented in this encounter Plan of Treatment Upcoming Encounters Date Type Department Care Team (Late st Contact Info) Description 05/06/2025 2:30 PM EDT Office Visit [facility] [address] [place] [address] Corin Doyle MD [address] [place] [address] 07/01/2025 3:30 PM EST Medication Management [facility] [address] [place] [address] Sam Peace, PharmD 230 [place] [address] documented as of this encounter Visit Diagnoses Not on filedocumented in this encounter Additional Health Concerns Assessment Noted Time PHQ-9 Depression Total Score: 0 11/24/19 23 3:58 PM EDT documented as of this encounter Care Teams Public Address Announcer Relationship Specialty Start Date End Date Corin Doyle MD [address] [place] [address] PCP - General Family Medicine 07/18/18 Sam Peace, PharmD [address] [place] [address] Pharmacist Pharmacy 03/06/25 Danay Carmen High School Music DirectorPharmacology Associate 12/09/23 Danay Carmen High School Music DirectorPharmacology Associate 08/27/24 documented as of this encounter
--- OUTSIDE RECORDS SUMMARY | 2025-04-05 13:49 | XMS_ITS | Encounter Summary ---
Author Organization [employer] Address [address] [facility] [address] 7t [place] [address] Care Team Providers Care Manager [place] Name Role Phone Corin Doyle MD Primary Care Provider [phone] Sam Peace PharmD Unavailable [phone] Encounter Details Date Type Department Care Team ([facility] Contact Info) Description 03/01/2025 Results Follow-Up [facility] MEDICINE [address] [place] [address] Corin Doyle MD [address] [place] [address] Basic Metabolic Panel Social History Tobacco Use [...] Description 05/06/2025 2:30 PM EDT Office Visit [facility] MEDICINE [address] [place] [address] Corin Doyle MD [address] [place] [address] 07/01/2025 3:30 PM EST Medication Management [address] [address] Sam Peace PharmD [address] [place] [address] documented as of this encounter Visit Diagnoses Not on filedocumented in this encounter Additional Health Concerns Assessment Noted Time PHQ-9 Depression Total Score: 0 08/14/19 25 3:31 PM EST documented as of this encounter Care Teams Manager Reading Relationship Specialty Start Date End Date Corin Doyle MD [address] [place] [address] PCP - General Family Medicine 07/18/18 Sam Peace, PharmD [address] [place] [phone] Pharmacist Pharmacy 03/06/25 Danay Carmen Correctional CorporalAir Pollution Analyst 12/09/23 Danay Carmen Correctional CorporalAir Pollution Analyst 08/27/24 documented as of this encounter
--- OUTSIDE RECORDS SUMMARY | 2025-04-05 13:49 | XMS_ITS | Encounter Summary ---
Author Organization [employer] Address [address] [facility] 7t [place] [address] Care Team Providers Care Tool And Die Engineer Name Role Phone Corin Doyle MD Primary Care Provider [phone] Sam Peace PharmD Unavailable [phone] Reason for Visit * Reason Comments Med Refill Encounter Details Date Type Department Care Team ([facility] st Contact Info) Description 12/14/2022 Refill [facility] [address] [place], [place] [phone] Corin Doyle MD [address] [place], [place] [phone] LLQ pain Social History Tobacco Use Types [...] EDT Office Visit [facility] [address] [place] [address] Corin Doyle MD [address] [place] [address] 07/01/2025 3:30 PM EST Medication Management [facility] [address] [place] [address] Sam Peace, PharmD [address] [place] [phone] documented as of this encounter Visit Diagnoses Diagnosis LLQ pain Abdominal pain, left lower quadrant documented in this encounter Additional Health Concerns Assessment Noted Time PHQ-9 Depression Total Score: 0 11/24/19 23 3:58 PM EDT documented as of this encounter Care Teams Tool And Die Engineer Relationship Specialty Start Date End Date Corin Doyle MD [address] [place] [phone] PCP - General Family Medicine 07/18/18 Sam Peace, PharmD [address] [place] [address] [phone] Pharmacist Pharmacy 03/06/25 Danay Carmen Senior TechnologistTone Regulator 12/09/23 Danay Carmen Senior TechnologistTone Regulator 08/27/24 documented as of this encounter
--- OUTSIDE RECORDS SUMMARY | 2025-04-05 13:49 | XMS_ITS | Encounter Summary ---
Author Organization [employer] Address [address] [facility] [address] 7[address] [place] [address] Care Team Providers Care Business Systems Advisor Name Role Phone Corin Doyle MD Primary Care Provider Sam Peace PharmD Unavailable [phone] Encounter Details Date Type Department Care Team ([facility] st Contact Info) Description 03/01/2025 Orders Only [facility] MED[facility]INE [address] [place], [place] [phone] Corin Doyle MD [address] [place] [address] Hypokalemia (Primary Dx) Social History Tobacco Use [...] 05/06/2025 2:30 PM EDT Office Visit [facility] [address] [place] [phone] Corin Doyle MD [address] [place] [address] 07/01/2025 3:30 PM EST Medication Management [address] [address] Sam Peace, PharmD [address] [place] [address] documented as of this encounter Procedures Procedure Name Priority Date/Time Associated Diagnosis Comments MAGNESIUM Routine 04/01/2025 3:26 PM EDT Hypokalemia BASIC METABOLIC PANEL Routine 04/01/2025 3:26 PM EDT Hypokalemia documented in this encounter Results * Magnesium (04/01/2025 3:26 PM EDT) Magnesium 2.1 1.6 - 2.6 mg/dL [facility] Blood Venous blood specimen / Unknown 04/01/2025 3:26 PM EDT 04/01/2025 4:08 PM EDT Corin Doyle MD LAB BLOOD ORDERABLES Final Resul t Performing Organization Address [facility] Co de Phone Number [facility] [address] [place] [address] [phone] * (ABNORMAL) Basic Metabolic Panel (04/01/2025 3:26 PM EDT) Sodium 144 135 - 145 mmol/L [facility] Potassium 3.6 3.3 - 5.1 mmol/L [facility] Chloride 109(H) 96 - 108 mmol/L [facility] Carbon Dioxide 29 22 - 29 mmol/L [facility] Anion Gap 10(L) 12 - 20 [facility] Urea Nitrogen (BUN) 15 9 - 16 mg/dL [facility] Creatinine, Serum 0.81 0.5 - 1.4 mg/dL [facility] Estimated Glomerular Filt Rate >60 [facility] Comment:Chronic Kidney Disea se: Estimated GFR < 60 mL/min/1.50f8Cwhylb Kidney Disease: Estimated GFR < 15 mL/min/1.73m2 Glucose 87 60 - 115 mg/dL [facility] Calcium 8.9 8.4 - 10.2 mg/dL [facility] Blood Venous blood specimen / Unknown 04/01/2025 3:26 PM EDT 04/01/2025 4:08 PM EDT us Corin Doyle MD LAB BLOOD ORDERABLES Final Resul t Performing Organization Address City/[facility]/ZIP Co de Phone Number [facility] [address] [place] [address] [phone] documented in this encounter Visit Diagnoses Diagnosis Hypokalemia- Primary Hypopotassemia documented in this encounter Additional Health Concerns Assessment Noted Time PHQ-9 Depression Total Score: 0 08/14/19 3:31 PM EST documented as of this encounter Care Teams Business Systems Advisor Relationship Specialty Start Date End Date Corin Doyle MD [address] [place] [address] PCP - General Family Medicine 07/18/18 Sam Peace, PharmD [address] [place] [address] Pharmacist Pharmacy 03/06/25 Danay Carmen Investor Relations SpecialistFlowers Salesperson 12/09/23 Danay Carmen Investor Relations SpecialistFlowers Salesperson 08/27/24 documented as of this encounter
--- OUTSIDE RECORDS SUMMARY | 2025-04-05 13:49 | XMS_ITS | Encounter Summary ---
Author Organization [employer] Address [address] [facility] [address] 7[address] [place] [address] Care Team Providers Care Computer Aided Drafter Name Role Phone Corin Doyle MD Primary Care Provider [phone] Sam Peace PharmD Unavailable [phone] Reason for Visit * Reason Onset Date Comments Letter Request 07/05/2022 I called jodi comer the pt's request for a letter for housing. She stated that she is requesting an apartment on a first floor, or one with elevator accessibility, due to her medical conditions. Encounter Details Date Type Department Care Team ([facility] Contact Info) Description 07/05/2022 Telephone [facility] [address] [place], [place] [phone] Corin Doyle MD [address] [place] [address] Letter Request (I called regarding the pt's [...] Upcoming Encounters Date Type Department Care Team ([facility] Contact Info) Description 05/06/2025 2:30 PM EDT Office Visit [facility] MED[facility]INE [address] [place] [phone] Corin Doyle MD [facility] [place], [place] [phone] 07/01/2025 3:30 PM EST Medication Management [facility] [address] [place] [address] Sam Peace, PharmSol [address] [place] [address] documented as of this encounter Visit Diagnoses Not on filedocumented in this encounter Care Teams Computer Aided Drafter Relationship Specialty Start Date End Date Corin Doyle MD [address] [place] [address] [phone] PCP - General Family Medicine 07/18/18 Sam Peace, PharmD [address] [place] [address] [phone] Pharmacist Pharmacy 03/06/25 Danay Carmen Control Center OperatorRural Health Consultant 12/09/23 Danay Carmen Control Center OperatorRural Health Consultant 08/27/24 documented as of this encounter
--- OUTSIDE RECORDS SUMMARY | 2025-04-05 13:49 | XMS_ITS | Encounter Summary ---
Author Organization [employer] Address [address] [facility] [address] 7[address] [place] [address] Care Team Providers Care Metal Finisher Name Role Phone Corin Doyle MD Primary Care Provider [phone] Sam Peace PharmD Unavailable [phone] Reason for Visit * Reason Onset Date Comments triage 10/28/2022 Encounter Details Date Type Department Care Team ([facility] st Contact Info) Description 10/28/2022 Telephone [facility] [address] [place] [address] Corin Doyle MD [address] [place] [address] triage Social History Tobacco Use Types Packs/Day [...] 11:47 AM EDT Triage call with Suze Licensed Pharmacist [place] [id number] Pt reports burning with urination, bladder pressure, slight bilateral flank pain and frequency. Pt denies bad odor, fever. Pt is advised to come to [facility] to be seen today and Pt [...] Visit [facility] [address] [place] [phone] Corin Doyle MD [address] [place] [address] 07/01/2025 3:30 PM EST Medication Management [facility] [address] [place] [phone] Sam Peace, ConchisD [address] [place] [address] documented as of this encounter Visit Diagnoses Not on filedocumented in this encounter Care Teams Metal Finisher Relationship Specialty Start Date End Date Corin Doyle MD [address] [place] [phone] PCP - General Family Medicine 07/18/18 Sam Peace, PharmD [address] [place] [address] [place] [address] Pharmacist Pharmacy 03/06/25 Danay Carmen Plastic Molding OperatorConservation Educator 12/09/23 Danay Carmen Plastic Molding OperatorConservation Educator 08/27/24 documented as of this encounter
== END 2025-04-05 13:36 | disposition home or self-care (01) ==
LOC: HO.US 13:35
PROVIDERS: PCP Family Medicine; Visit Provider Family Medicine
DX: I83.93 Asymptomatic varicose veins of bilateral lower extremities (principal)
CPT/HCPCS: 93970

== ENCOUNTER → 2025-04-05 13:38 | Outpatient (BNV) | payer MEDICAID, SELFPAY | PROVIDERS: PCP Family Medicine; Visit Provider Radiology Diagnostic Radiology | DX: I87.2 Venous insufficiency (chronic) (peripheral) (principal) | CPT/HCPCS: 93970 ==

== ENCOUNTER 2025-04-11 17:38 | Outpatient (REF) | payer MEDICAID, SELFPAY ==
--- OUTSIDE RECORDS SUMMARY | 2025-04-11 14:45 | XMS_ITS | Encounter Summary ---
Author Organization [employer] Address [address] [facility] [address] 7[address] [place] [address] Care Team Providers Care Assembler Cards And Announcements Name Role Phone Corin Doyle MD Primary Care Provider [phone] Sam Peace PharmD Unavailable [phone] Reason for Visit * Reason Comments CHW - Office Visit Encounter Details Date Type Department Care Team ([facility] st Contact Info) Description 04/11/2025 2:45 PM EDT Office Visit [facility] [address] [place] [address] Karli Wells CNM [address] [place], [place] [phone] Urinary frequency (Primary Dx); Pelvic pain; Screening examination for venereal disease Social History Tobacco Use Types Packs/Day Years [...] Sign Reading Time Taken Comments Blood Pressure 122/80 04/11/2025 2:33 PM EDT Pulse 64 04/11/2025 2:33 PM EDT Temperature 36.4 C (97.5 F) 04/11/2025 2:33 PM EDT Respiratory Rate 14 04/11/2025 2:33 PM EDT Oxygen Saturation 98% 04/11/2025 2:33 PM EDT Inhaled Oxygen Concentration - - Weight 92.9 kg (204 lb 12.8 oz) 04/11/2025 2:33 PM EDT Height - - Body Mass Index 37.46 10/19/2024 4:05 PM EDT documented in this encounter Progress Notes * Karli Wells CNM - 04/11/2025 2:45 PM EDT Subjective Patient ID: Janelle León is a 50 y.o. female who presents for UTI symptoms Notes 2 day history of suprapubic pain, urinary frequency/urgency. No vaginal symptoms. LMP 09/2024. Has tubal ligation. test negative today. Constipation noted in patient completed history but she denies this today. No triggering factors for pain. Abdominal Pain This is a new problem. The current episode started yesterday. The onset quality is sudden. The problem occurs constantly. The most recent episode lasted 4 hours. The problem has been rapidly worsening. The pain is located in the generalized abdominal region. The pain is at a severity of 10/10. The quality of the pain is cramping. The abdominal pain radiates to the back. Associated symptoms include constipation, frequency and headaches. Pertinent negatives include no diarrhea, dysuria, fever, nausea or vomiting. The pain is aggravated by certain positions. The pain is relieved by Palpation andrecumbency. Review of Systems Constitutional: Negative for chills and fever. Gastrointestinal: Positive for abdominal pain and constipation. Negative for diarrhea, nausea and vomiting. Genitourinary: Positive for frequency and pelvic pain. Negative for difficulty urinating, dysuria, vaginal bleeding, vaginal discharge and vaginal pain. Musculoskeletal: Negative for back pain. Neurological: Positive for headaches. Objective BP 122/80 (BP Location: Left arm, Patient Position: Sitting, BP Cuff Size: Adult) Pulse 64 Temp97.5 ??F (36.4 ??C) (Oral) Resp 14 Wt 204 lb 12.8 oz (92.9 kg) LMP 09/15/2024 (Approximate) SpO2 98% BMI 37.46 kg/m?? Physical Exam Constitutional: Appearance: Normal appearance. Abdominal: Tenderness: There is abdominal tenderness in the right lower quadrant, suprapubic area and left lower quadrant. There is no right CVA tenderness, left CVA tenderness, guarding or rebound. Genitourinary: General: Normal vulva. Labia: Right: No rash, tenderness, lesion or injury. Left: No rash, tenderness, lesion or injury. Vagina: Normal. No signs of injury and foreign body. No vaginal discharge, erythema, tenderness, bleeding, lesions or prolapsed vaginal benito. Cervix: Normal. No cervical motion tenderness, discharge, friability, lesion, erythema, cervical bleeding or eversion. Uterus: Tender. Not enlarged. Adnexa: Right: No mass, tenderness or fullness. Left: No mass, tenderness or fullness. Comments: Uterine vs bladder tenderness Neurological: Mental Status: She is alert. Psychiatric: Mood and Affect: Mood normal. Behavior: Behavior normal. Assessment/Plan Diagnoses and all orders for this visit: Urinary frequency - POCT urinalysis dipstick manually resulted - Culture, Urine, Routine UA neg. Will send culture and treat positive results. Trial of Pyridum pending culture results. Push fluids. Seek care if symptoms worsen. Pelvic pain - POCT Urine - Chlamydia/N. Gonorrhoeae RNA, TMA, Vagina - Trichomonas RNA (Urine/Vaginal) - POCT fern test, vaginal fluid manually resulted Unclear etiology. Negative UA, wet mount and test today. Will send vaginal infection tests and urine culture. Trial Pyridium. If all negative, for pelvic ultrasound. Seek care urgently if symptoms worsen. Screening examination for venereal disease - Chlamydia/N. Gonorrhoeae RNA, TMA, Vagina - Trichomonas RNA (Urine/Vaginal) - POCT fern test, vaginal fluid manually resulted Gonorrhea/Chlamydia/trichomonas sent. Will contact with results. Other orders - phenazopyridine (Pyridium) 200 MG tablet; Take 1 tablet (200 mg) by mouth if needed in the morning, at noon, and at bedtime for bladder spasms for up to 2 days. Take with food documented in this encounter Plan of Treatment Upcoming Encounters Date Type Department Care Team (Late st Contact Info) Description 05/06/2025 2:30 PM EDT Office Visit [facility] MEDICINE [address] [place] [address] Corin Doyle MD [address] [place] [address] 07/01/2025 3:30 PM EST Medication Management [facility] [address] [place] [address] Sam Peace, ConchisD [address] [place] [address] Scheduled Orders Name Type Priority Associated Diagnoses Orde r Schedule Culture, Urine, Routine Microbiology Routine Urinary frequency Ordered: 04/11/2025 Chlamydia/N. Gonorrhoeae RNA, TMA, Vagina Microbiology Routine Pelvic pain Screening examination for venereal disease Ordered: 04/11/2025 Trichomonas RNA (Urine/Vaginal) Lab Routine Pelvic pain Screening examination for venereal disease Ordered: 04/11/2025 documented as of this encounter Procedures Procedure Name Priority Date/Time Associated Diagnosis Comments POCT , URINE Routine 04/11/2025 3:05 PM EDT Pelvic pain POCT WET MOUNT/JUANIS Routine 04/11/2025 3: 01 PM EDT Pelvic pain Screening examination for venereal disease POCT URINALYSIS DIPSTICK Routine 04/11/2025 2:50 PM EDT Urinary frequency documented in this encounter Results * POCT Urine (04/11/2025 3:05 PM EDT) Preg Test, Ur Negative Negative, Indeterminate, None Detected, Invalid, Specimen unsatisfactory for evaluation, Weakly Positive, 2+ QC Media Lot # [id number] Lot# Expiration Date Urine 04/11/2025 3:05 PM EDT [facility] POINT OF CARE TEST ENTER/ EDIT ORDERABLES Final Result * POCT fern test, vaginal fluid manually resulted (04/11/2025 3:01 PM EDT) JUANIS Prep Negative Comment:pH 4.5, neg whiff, n eg clue, neg trich, neg yeast, neg wbc Vaginal Fluid Vaginal structure / Unknown 04/11/2025 3:01 PM EDT [facility] POINT OF CARE TEST ENTER/ EDIT ORDERABLES Final Result * POCT urinalysis dipstick manually resulted (04/11/2025 2:50 PM EDT) Color, UA Yellow Clarity, UA Clear Glucose, UA Negative Bilirubin, UA Negative Ketones, UA Negative Spec Grav, UA 1.030 Blood, UA Negative Negative, None Detected pH, UA 6.0 Protein, UA Trace Comment:30mg Urobilinogen, UA 0.2 Leukocytes, UA Negative Negative, Rare, Trace Nitrite, UA Negative Negative, None Detected Appearance, UA clear QC Media Lot # [id number] Lot# Expiration Date [id number] Urine 04/11/2025 2:50 PM EDT Karli Wells CNJessica POINT OF CARE TEST ENTER/ EDIT ORDERABLES Final Result documented in this encounter Visit Diagnoses Diagnosis Urinary frequency- Primary Pelvic pain Screening examination for venereal disease documented in this encounter Additional Health Concerns Assessment Noted Time PHQ-9 Depression Total Score: 0 08/14/19 3:31 PM EST documented as of this encounter Care Teams Assembler Cards And Announcements Relationship Specialty Start Date End Date Corin Doyle MD [address] [place] [address] PCP - General Family Medicine 07/18/18 Sam Peace, ConchisD [address] [place] [address] Pharmacist Pharmacy 03/06/25 Danay Carmen United States MarshalPan Helper 12/09/23 Danay Carmen United States MarshalPan Helper 08/27/24 documented as of this encounter
--- OUTSIDE RECORDS SUMMARY | 2025-04-11 20:03 | XMS_ITS | Encounter Summary ---
Author Organization [employer] Address [address] [facility] [address] 7[address] [place] [address] Care Team Providers Care Teenage Babysitter Name Role Phone Corin Doyle MD Primary Care Provider [phone] Sam Peace PharmD Unavailable [phone] Reason for Visit * Reason Onset Date Comments Med Refill 04/20/2024 Encounter Details Date Type Department Care Team (Late st Contact Info) Description 04/20/2024 Refill [facility] [address] [place] [address] Corin Doyle MD [address] [place] [address] Social History Tobacco Use Types Packs/Day Years [...] Description 05/06/2025 2:30 PM EDT Office Visit [facility] [address] [place] [address] Corin Doyle MD [address] [place] [address] 07/01/2025 3:30 PM EST Medication Management [facility] [address] [place] [address] Sam Peace, PharmD [address] [place] [phone] documented as of this encounter Visit Diagnoses Not on filedocumented in this encounter Additional Health Concerns Assessment Noted Time PHQ-9 Depression Total Score: 0 11/24/19 23 3:58 PM EDT documented as of this encounter Care Teams Teenage Babysitter Relationship Specialty Start Date End Date Corin Doyle MD [address] [place] [phone] PCP - General Family Medicine 07/18/18 Sam Peace, PharmD [address] [place] [phone] Pharmacist Pharmacy 03/06/25 Danay Carmen Clinical InstructorWaste Water Operator 12/09/23 Danay Carmen Clinical InstructorWaste Water Operator 08/27/24 documented as of this encounter
--- OUTSIDE RECORDS SUMMARY | 2025-04-11 20:03 | XMS_ITS | Clinical Summary ---
Author Organization [employer] Address [address] [facility] [address] [place] [address] Care Team Providers Care Photoengraving Photographer Name Role Phone Corin Doyle MD Primary Care Provider Sam Peace PharmD Unavailable [phone] Allergies Active Allergy Reactions Criticality Noted Date [...] BY MOUTH DAILY WHEN DIRECTED BY HEALTH CUT ROLL MACHINE OPERATOR. DO NOT CRUSH OR CHEW. 30 [...] mg day) 90 tablet 3 025 Active phenazopyridine (Pyridium) 200 MG tablet Take 1 tablet (200 mg) by mouth if needed in the morning, at noon, and at bedtime for bladder spasms for up to 2 days. Take with food 6 tablet 025 2024 Active losartan (Cozaar) 50 MG tabletIndicatio ns:Primary [...] by mouth daily when directed by health primary care pediatrician. Do not crush or chew. 30 tablet [...] of lower extremity 01/24/2018 Assessment & Plan (04/06/2025 5:52 AM EDT): -11/22/17 Venous study showed: 1. RIGHT LEG: [...] appt -Continue leg elevation Assessment & Plan (08/14/2023 2:54 PM EST): [...] -Last exacerbation in Feb 2022. Seen in [facility]. Rx prednisone and azithromycin. Negative COVID -Followed by allergy / clinical specialist vascular -Continue Symicort -Continue montelukast -Continue albuterol neb and inhaler prn --Pt uses nebulizer treatment at home because her symptoms respond better and faster to nebulizer treatment Assessment & Plan (08/14/2023 2:52 PM EST): -Last exacerbation in Feb 2022. Seen in [facility]. Rx prednisone and azithromycin. Negative COVID -Followed by allergy / clinical specialist vascular -Continue Symicort -Continue montelukast -Continue albuterol neb and inhaler prn --Pt uses nebulizer treatment at home because her symptoms respond better and faster to nebulizer treatment Assessment & Plan (11/23/2022 4:53 PM EDT): -Last exacerbation in Feb 2022. Seen in [facility]. Rx prednisone and azithromycin. Negative COVID -Followed by allergy / clinical specialist vascular -Continue Symicort -Continue montelukast -Continue albuterol neb and inhaler prn --Pt uses nebulizer treatment at home because her symptoms respond better and faster to nebulizer treatment Assessment & Plan (07/25/2022 1:55 PM EST): -Last exacerbation in Feb 2022. Seen in [facility]. Rx prednisone and azithromycin. Negative COVID -Followed by allergy / clinical specialist vascular -Continue Symicort -Continue montelukast -Continue albuterol neb and inhaler prn --Pt uses nebulizer treatment at home because her symptoms respond better and faster to nebulizer treatment Allergic rhinitis 12/06/2012 Assessment & Plan (01/02/2025 12:51 PM EDT): -Previously followed by Dr. Whitehead, allergy / clinical specialist vascular -Continue loratadine -Continue montelukast -Continue immunotherapy -Continue fluticasone nasal Assessment & Plan (08/14/2023 3:00 PM EST): -Previously followed by Dr. Whitehead, allergy / clinical specialist vascular -Continue loratadine -Continue montelukast -Continue immunotherapy -Continue fluticasone nasal Assessment & Plan (11/29/2022 7:45 AM EDT): -Previously followed by Dr. Whitehead, allergy / clinical specialist vascular -Continue loratadine -Continue montelukast -Continue immunotherapy -Continue fluticasone nasal Assessment & Plan (07/25/2022 2:06 PM EST): -Followed by Dr. Whitehead, allergy / clinical specialist vascular -Continue loratadine -Continue montelukast -Continue immunotherapy -Continue fluticasone nasal Chronic back pain 12/06/2012 Assessment & Plan (07/25/2022 2:07 PM EST): -Previously evaluated by touch up painter hand at [facility] -s/p L4 TFESI -Continue back exercise at [...] nml sinus rhythm, borderline qtc -refer to die sinking machine operator for eval Encounters Date Type Department Care Team Description 04/11/2025 2:45 PM EDT Office Visit [facility] [place] [address] Naomy Boland CNM Urinary frequency (Primary Dx); Pelvic pain; Screening examination for venereal disease 04/11/2025 Travel 04/11/2025 Telephone [facility] [place] [address] Corin Doyle MD Nurse Triage 04/09/2025 Results Follow-Up [facility] [address] [place] [address] Naomy Boland CNM Pap Smear 04/06/2025 Telephone [facility] [place] [address] Corin Doyle MD 04/06/2025 Orders [place] [address] [place] [address] Corin Doyle MD Varicose veins of both lower extremities, unspecified whether complicated (Primary Dx) 04/02/2025 2:45 PM EDT Procedure Visit [facility] [address] [place] [address] Naomy Boland CNM Cervical cancer screening (Primary Dx); Breast pain, right; Unspecified dyspareunia; Breast cyst, left; Cervical polyp; Perimenopause 04/02/2025 Orders Only [facility] [address] [place] [address] Naomy Boland CNM 04/02/2025 Travel 04/02/2025 Results Follow-Up [facility] [address] [place] [address] Corin Doyle MD Basic Metabolic Panel, Magnesium 04/01/2025 Orders Only [facility] [address] [place] [address] Corin Doyle MD Primary hypertension (Primary Dx) 04/01/2025 Telephone [facility] [address] [place] [address] Corin Doyle MD 04/01/2025 Travel 04/01/2025 Telephone [facility] [address] [place] [address] Naomy Boland CNM chart prep 03/24/2025 Refill [facility] [address] [place] [address] Corin Doyle MD 03/23/2025 Refill [facility] [address] [place] [address] Corin Doyle MD 03/20/2025 Refill [facility] [address] [place] [address] Gabriela López MD 03/20/2025 Refill [facility] [address] [place] [address] Corin Doyle MD 03/19/2025 Refill [facility] [address] [facility] [place] [address] Corin Doyle MD 03/13/2025 Refill [facility] [address] [facility] [place] [address] Corin Oates MD 03/06/2025 Refill [facility] [place], [place] [address] Corin Doyle MD [facility] 03/01/2025 Results Follow-Up [facility] [place], [place] [address] Corin Doyle MD Basic Metabolic Panel 03/01/2025 Orders Only [facility] [address] [place], [place] [address] Corin Doyle MD Hypokalemia (Primary Dx) 03/01/2025 Orders Only [facility] [place], [place] [address] Corin Doyle MD 03/01/2025 Travel 03/01/2025 Refill [facility] [place], [place] [address] Corin Doyle MD 02/26/2025 Travel 02/24/2025 Refill [facility] [place], [place] [address] Corin Doyle MD 02/15/2025 3:30 PM EDT Clinical Support [facility] [place], [place] [address] Saranya Burt RN Primary hypertension 02/15/2025 Telephone [facility] [place] [place] [address] Corin Doyle MD 02/15/2025 Travel 02/14/2025 Travel 02/11/2025 3:40 PM EDT Office Visit [facility] [place], [place] [address] Gabriela López MD Primary osteoarthritis of right knee (Primary Dx); Acute hip pain, right 02/11/2025 Travel 02/07/2025 Refill [facility] [place], [place] [address] Corin Doyle MD 2025 3:30 PM EDT Clinical Support [place] [address] Blanca Rendon RN Primary hypertension 2025 Travel 01/31/2025 Travel 01/30/2025 Refill [facility] [address] [place], [place] [phone] Corin Doyle MD 01/23/2025 Refill [facility] [address] [place], [place] [phone] Corin Doyle MD 01/21/2025 Telephone [facility] [address] [place], [place] [phone] Corin Doyle MD Prior Authorization ( PA: Kellen) 01/15/2025 2:30 PM EDT Office Visit [facility] [address] [place], [place] [phone] Yuli Price, YAHIR Presbyopia (Primary Dx) 01/15/2025 Travel from Last 3 Months Immunizations Immunization Administration Dates Next Due Hep B, Adolescent or Pediatric 07/22/2006,2005,11/08/2005 Hep B, adult 11/16/2007 Influenza injectable quadriv alent IIV4 with preservative 04/24/2018,04/05/2016 Influenza injectable quadriv alent preservative free 08/08/2023,04/09/2019 Influenza, IIV3, injectable 05/02/2014,0 07/20/2011,04/25/2007,06/27 Influenza, Split (incl. johyn fied surface antigen) 04/27/2013 MMR 01/15/2019,11/08/2005 Moderna [...] 12.8 oz) 04/11/2025 2:33 PM EDT Height 157.5 cm (5' 2 ) 10/19/2024 4:05 PM EDT Body Mass Index 37.46 10/19/2024 4:05 PM EDT Plan of Treatment Upcoming Encounters Date Type Department Care Team (Late st Contact Info) Description 05/06/2025 2:30 PM EDT Office Visit [facility] [address] [place] [phone] Corin Doyle MD [address] [place] [address] 07/01/2025 3:30 PM EST Medication Management [facility] [address] [place] [address] Sam Peace, PharmD [address] [place], [place] [phone] Health Maintenance Due Date Last Done Comments CT Colonography 1975 Colonoscopy 1975 Colorectal Cancer Screening 1975 FIT DNA/Cologuard 1975 FIT 1975 FOBT 1975 Sigmoidoscopy 1975 Dental Oral Exam 03/02/2024 09/01/2023, 05/2022, 02/02/2019, Additional history exists Dental Prophylaxis 03/02/2024 09/01/2023, 0 11/25/2021, 08/04/2018, Additional history exists Dental X-Ray: Bitewings 09/02/2024 09/01/19 24, 11/25/2021, 02/02/2019, Additional history exists Dental X-Ray: Full Mouth 11/26/2024 11/25/2021, 07/20 COVID-19 Vaccine ( season) 2025 12/23/2020, 11/25/2020 Influenza Vaccine (#1) 2025 4, 04/09/2019, 04/24/2018, Additional history exists Alcohol/Substance Use Screening 08/14/2025 08/14/2024 Depression Screening 08/14/2025 08/14/2024, 08/14/19 SDOH Screening 08/14/2025 08/14/2024 Disability Screening 12/31/2025 12/31/2024 Mammogram 01/25/2026 01/26/2024, 11/15, 06/19/2021, Additional history exists Zoster Vaccines (1 of 2) 01/31/2026 Family Planning (PISQ) 04/02/2026 04/02/2025 Tobacco Screening 04/11/2026 04/11/2025 Cervical Cancer Screening 04/02/2028 HPV/Cotest 04/02/2028 04/02/2025, 11/25/2017 Pap Smear 04/02/2028 04/02/2025 Lipid Panel 08/14/2029 08/14/2024, 07/19, 07/23/2020, [...] Routine 04/11/2025 2:50 PM EDT Urinary frequency VASC US LOWER EXTREMITY VENOUS INSUFFICIENCY BILATERAL Routine 04/05/2025 1:57 PM EDT Varicose veins of both lower extremities, unspecified whether complicated PAP SMEAR Routine 04/02/2025 12:00 AM EDT Cervical cancer screening HPV DNA, LOW/HIGH RISK Routine 04/02/2025 12:00 [...] Recently Relevant to Health Maintenance Results * POCT Urine (04/11/2025 3:05 PM EDT) Preg Test, Ur Negative Negative, Indeterminate, None Detected, Invalid, Specimen unsatisfactory for evaluation, Weakly Positive, 2+ QC Media Lot # [id number] Lot# Expiration Date ,026 Urine 04/11/2025 3:[address] [facility] POINT OF CARE TEST ENTER/ EDIT ORDERABLES Final Result * POCT fern test, vaginal fluid manually resulted (04/11/2025 3:01 PM EDT) JUANIS Prep Negative Comment:pH 4.5, neg whiff, n eg clue, neg trich, neg yeast, neg wbc Vaginal Fluid Vaginal structure / Unknown 04/11/2025 3:01 PM EDT [facility] POINT OF CARE TEST ENTER/ EDIT ORDERABLES [...] Media Lot # [id number] Lot# Expiration Date Urine 04/11/2025 2:[address] [facility] POINT OF CARE TEST ENTER/ EDIT ORDERABLES Final Result * VASC US Lower Extremity Venous Insufficiency Bilateral (04/05/2025 1:57 PM EDT) 04/05/2025 1:57 PM EDT Narrative [facility] - 04/05/2025 3:25 PM EDT [address] [address] Ultrasound Report Signed Patient: Janelle León MR#: [id number] : 1975 Acct:[id number] Age/Sex: 50 / F ADM Date: 04/05/25 Loc: . Attending Dr: Corin Doyle MD Ordering Physician: Corin Doyle MD Date of Service: 04/05/25 Procedure(s): US venous insuf bilat Accession Number(s): [id number] cc: Corin Doyle MD Reason for Exam: varicose veins, leg swelling EXAMINATION: US LOWER EXTREMITY VENOUS (REFLUX EXAM), BILATERAL CLINICAL INFORMATION: Varicose veins of the lower extremity with inflammation COMPARISON: None. TECHNIQUE: Color flow triplex imaging and compression Doppler was performed to evaluate both the deep and the superficial systems bilaterally. To evaluate the superficial system, the examination was performed in the upright position. Color-flow Doppler ultrasound and compression ultrasound were utilized. In addition, maneuvers were utilized to demonstrate reflux. FINDINGS: 1. DEEP VENOUS ULTRASOUND OF THE RIGHT LOWER EXTREMITY: Common Femoral Vein: Compressible, normal respiratory variation and augmented flow. Femoral Vein: Compressible, normal color flow and augmentation. Popliteal Vein: Compressible, normal augmentation. Deep Reflux: There is no evidence of reflux in the deep system in either the common femoral vein, superficial femoral or the popliteal vein. 2. SUPERFICIAL ULTRASOUND WITH DOPPLER OF RIGHT LOWER EXTREMITY: GREAT SAPHENOUS VEIN: Saphenofemoral Junction: 0.9 cm; Reflux: 0 ms Proximal Thigh: 0.3 cm; Reflux: 0 ms Mid Thigh: 0.4 cm; Reflux: 0 ms Distal Thigh: 0.4 cm; Reflux: 0 ms At Knee: 2.4 cm; Reflux: 0 ms Below Knee/Proximal Calf: 0.2 cm; Reflux: 0 ms Mid Calf: 0.2 cm; Reflux: 0 ms Ankle/Distal Calf: 0.2 cm; Reflux: 0 ms Lateral accessory GREAT SAPHENOUS VEIN: Saphenofemoral Junction: 0.4 cm; Reflux: 0 ms Mid Thigh: 0.4 cm; Reflux: 0 ms SMALL SAPHENOUS VEIN: Drainage: Popliteal vein Saphenopopliteal Junction: 0.4 cm; Reflux: 0 ms Mid calf: 0.2 cm; Reflux: 0 ms Distal: 0.1 cm; Reflux: 0 ms VEIN OF GIACOMINI: Size: 0.4 cm Reflux: 0 ms PERFORATORS: Location: Tube Mounter into varicosity, distal calf Size: 0.3 cm Reflux: 0 ms VARICOSITIES > 3mm: Location: Greater saphenous vein, proximal calf Size: 0.3 cm Reflux: 0 ms 3. DEEP VENOUS ULTRASOUND OF THE LEFT LOWER EXTREMITY: Common Femoral Vein: Compressible, normal respiratory variation and augmented flow. Femoral Vein: Compressible, normal color flow and augmentation. Popliteal Vein: Compressible, normal augmentation. Deep Reflux: There is no evidence of reflux in the deep system in either the common femoral vein, superficial femoral or the popliteal vein. 4. SUPERFICIAL ULTRASOUND WITH DOPPLER OF LEFT LOWER EXTREMITY: GREAT SAPHENOUS VEIN: Saphenofemoral Junction: 1.1 cm; Reflux: 0 ms Proximal Thigh: 0.3 cm; Reflux: 0 ms Mid Thigh: 0.3 cm; Reflux: 0 ms Distal Thigh: 0.3 cm; Reflux: 0 ms At Knee: 0.3 cm; Reflux: 0 ms Below Knee/Proximl calf: 0.3 cm; Reflux: 0 ms Mid Calf: 0.2 cm; Reflux: 0 ms Distal Calf/Ankle: 0.2 cm; Reflux: 672 ms Lateral accessory GREAT SAPHENOUS VEIN: Saphenofemoral Junction: 0.4 cm; Reflux: 0 ms Mid Thigh: 0.2 cm; Reflux: 0 ms SMALL SAPHENOUS VEIN: Drainage: Popliteal vein Saphenopopliteal Junction: 0.6 cm; Reflux: 0 ms Mid calf: 0.2 cm; Reflux: 0 ms Distal calf: 0.1 cm; Reflux: 0 ms VEIN OF GIACOMINI: Size: NA Reflux: NA PERFORATORS: Location: Greater saphenous vein, mid thigh park interpretive specialist into varicosity Size: 0.2 cm Reflux: 0 ms Location: Greater saphenous vein into varicosity, mid calf Size: 0.2 cm Reflux: 0 ms VARICOSITIES > 3mm: Location: Small saphenous vein, proximal Size: 0.3 cm Reflux: 0 ms US/US venous insuf bilat IMPRESSION: Right: No evidence of venous incompetence. Left: Venous incompetence demonstrated in the greater saphenous vein at the ankle. Electronically signed by: Shamar Eddy MD 04/05/2025 03:22 PM EDT RP Dictated By: Shamar Eddy MD Signed By: <Electronically signed by Shamar Eddy MD in OV> 04/05/25 1522 DD/ 1357 TD/TT: 04/05/25 1425 Inspector Fuel Hose: Procedure Note Donotuseinterpreter, Image - 04/05/2025 [place] [id number] Ultrasound Report Signed Patient: Janelle León GMR#: [id number] : 1975Acct:[id number] Age/Sex: 50 / FADM Date: 04/05/25 Loc: .US Attending Dr: Corin Doyle MD Ordering Physician: Corin Doyle MD Date of Service: 04/05/25 Procedure(s): US venous insuf bilat Accession Number(s): [id number] cc: Corin Doyle MD Reason for Exam: varicose veins, leg swelling EXAMINATION: US LOWER EXTREMITY VENOUS (REFLUX EXAM), BILATERAL CLINICAL INFORMATION: Varicose veins of the lower extremity with inflammation COMPARISON: None. TECHNIQUE: Color flow triplex imaging and compression Doppler was performed to evaluate both the deep and the superficial systems bilaterally. To evaluate the superficial system, the examination was performed in the upright position. Color-flow Doppler ultrasound and compression ultrasound were utilized. In addition, maneuvers were utilized to demonstrate reflux. FINDINGS: 1. DEEP VENOUS ULTRASOUND OF THE RIGHT LOWER EXTREMITY: Common Femoral Vein: Compressible, normal respiratory variation and augmented flow. Femoral Vein: Compressible, normal color flow and augmentation. Popliteal Vein: Compressible, normal augmentation. Deep Reflux: There is no evidence of reflux in the deep system in either the common femoral vein, superficial femoral or the popliteal vein. 2. SUPERFICIAL ULTRASOUND WITH DOPPLER OF RIGHT LOWER EXTREMITY: GREAT SAPHENOUS VEIN: Saphenofemoral Junction: 0.9 cm; Reflux: 0 ms Proximal Thigh: 0.3 cm; Reflux: 0 ms Mid Thigh: 0.4 cm; Reflux: 0 ms Distal Thigh: 0.4 cm; Reflux: 0 ms At Knee: 2.4 cm; Reflux: 0 ms Below Knee/Proximal Calf: 0.2 cm; Reflux: 0 ms Mid Calf: 0.2 cm; Reflux: 0 ms Ankle/Distal Calf: 0.2 cm; Reflux: 0 ms Lateral accessory GREAT SAPHENOUS VEIN: Saphenofemoral Junction: 0.4 cm; Reflux: 0 ms Mid Thigh: 0.4 cm; Reflux: 0 ms SMALL SAPHENOUS VEIN: Drainage: Popliteal vein Saphenopopliteal Junction: 0.4 cm; Reflux: 0 ms Mid calf: 0.2 cm; Reflux: 0 ms Distal: 0.1 cm; Reflux: 0 ms VEIN OF GIACOMINI: Size: 0.4 cm Reflux: 0 ms PERFORATORS: Location: Tube Mounter into varicosity, distal calf Size: 0.3 cm Reflux: 0 ms VARICOSITIES > 3mm: Location: Greater saphenous vein, proximal calf Size: 0.3 cm Reflux: 0 ms 3. DEEP VENOUS ULTRASOUND OF THE LEFT LOWER EXTREMITY: Common Femoral Vein: Compressible, normal respiratory variation and augmented flow. Femoral Vein: Compressible, normal color flow and augmentation. Popliteal Vein: Compressible, normal augmentation. Deep Reflux: There is no evidence of reflux in the deep system in either the common femoral vein, superficial femoral or the popliteal vein. 4. SUPERFICIAL ULTRASOUND WITH DOPPLER OF LEFT LOWER EXTREMITY: GREAT SAPHENOUS VEIN: Saphenofemoral Junction: 1.1 cm; Reflux: 0 ms Proximal Thigh: 0.3 cm; Reflux: 0 ms Mid Thigh: 0.3 cm; Reflux: 0 ms Distal Thigh: 0.3 cm; Reflux: 0 ms At Knee: 0.3 cm; Reflux: 0 ms Below Knee/Proximl calf: 0.3 cm; Reflux: 0 ms Mid Calf: 0.2 cm; Reflux: 0 ms Distal Calf/Ankle: 0.2 cm; Reflux: 672 ms Lateral accessory GREAT SAPHENOUS VEIN: Saphenofemoral Junction: 0.4 cm; Reflux: 0 ms Mid Thigh: 0.2 cm; Reflux: 0 ms SMALL SAPHENOUS VEIN: Drainage: Popliteal vein Saphenopopliteal Junction: 0.6 cm; Reflux: 0 ms Mid calf: 0.2 cm; Reflux: 0 ms Distal calf: 0.1 cm; Reflux: 0 ms VEIN OF GIACOMINI: Size: NA Reflux: NA PERFORATORS: Location: Greater saphenous vein, mid thigh park interpretive specialist into varicosity Size: 0.2 cm Reflux: 0 ms Location: Greater saphenous vein into varicosity, mid calf Size: 0.2 cm Reflux: 0 ms VARICOSITIES > 3mm: Location: Small saphenous vein, proximal Size: 0.3 cm Reflux: 0 ms US/US venous insuf bilat IMPRESSION: Right: No evidence of venous incompetence. Left: Venous incompetence demonstrated in the greater saphenous vein at the ankle. Electronically signed by: Shamar Eddy MD 04/05/2025 03:22 PM EDT RP Dictated By: Shamar Eddy MD Signed By: <Electronically signed by Shamar Eddy MD in OV> 04/05/25 1522 DD/ 1357 TD/TT: 04/05/25 1425 Inspector Fuel Hose: us Corin Doyle MD CV VASCULAR PROCEDURES Edited Re sult - Final [facility] [address] [place] [phone] * HPV DNA, Low/High Risk (04/02/2025 12:00 AM EDT) HPV High Risk Negative Negative [facility] HPV Genotype 16 Negative Negative [facility] HPV Genotype 18 Negative Negative [facility] Comment:HPV testing performe d at [facility] (CLIA#[id number]), [address] [place] [address].Testing for HPV was performed using the [employer] Solvate0system. The presence of HPV in the female [...] detected. 04/02/2025 04/03/2025 11: 40 AM EDT Naomy [facility] LAB BLOOD ORDERABLES Tegan l Result [facility] [address] [place] [phone] * Pap Smear (04/02/2025 12:00 AM EDT) Swab Cervix uteri structure / Unknown 04/02/2025 04/03/2025 11:40 AM EDT Narrative [facility] - 04/09/2025 10:08 AM EDT ----- ------- Name: Janelle León Age/Sex: 50/F : 1975 Unit#: [id number] Attend Dr: NAOMY BOLAND CNM Re04/02/25 Status: DEP REF Location: [facility] Disch: ----- ------- SPEC : [id number] RECD: 04/03/25 STATUS: CHACHO RODRIGUEZ NUM: [id number] EVI: 04/02/25-[address]: NAOMY BOLAND CNM ENTERED: 04/03/25 SP TYPE: Pap Smr [facility] DR: ORDERED: Pap Smear, PAP path review Interpretation General Category: Epithelial cell abnormality. Adequacy: Endocervical component present. Interpretation: Atypical squamous cells of undetermined significance. HPV High Risk: Negative HPV Genotyping 16: Negative HPV Genotyping 18: Negative Clinical Information LMP: Unknown date Previous PAP test: Unknown date/findings+ Other history: Cervical cancer screening Material Received ThinPrep-Cervical PAP Disclaimer As of May 09, 2024, the technical services to include automated prescreening performed by the ThinPrep Imaging System, PAP screening and HPV testing will be performed at [facility] (CLIA #[id number]), [address] [place] [address]. Testing for HPV was performed using the [employer] Solvate0 system. The presence of HPV in the female genital tract is associated with a number of diseases, including cervical carcinoma. The HPV DNA high risk pool tests for HPV 31, 33, 35, 39, 45, 51, 52, 56, 58, 59, 66 and 68. The testing for HPV 16 and 18 genotypes has also been performed. A positive result indicates detection of nucleic acid sequences from one or more subtypes, whereas a negative result indicates such sequences were not detected. All professional services are performed by [facility] ([address] [place], [place] [id number]; ; CLIA #[id number]). The PAP Test is a screening procedure with the inherent possibility of both false negative and false positive results. Results should be interpreted in the context of historic and current clinical findings. Reliability of the PAP Test is enhanced by performing the test on a regular repetitive basis. CONTINUED ON NEXT PAGE ----- ------- Name: Janelle León Age/Sex: 50/F : 1975 Unit#: [id number] Attend Dr: NAOMY BOLAND CNM Re04/02/25 Status: DEP REF Location: [facility] Disch: ----- ------- SPEC : [id number] RECD: 04/03/25114 STATUS: CHACHO RODRIGUEZ NUM: [id number] EVI: 04/02/25-[address] [facility] [address]: NAOMY BOLAND ENTERED: 04/03/25-115 SP TYPE: Pap Becky POSEY DR: ORDERED: Pap Smear, PAP path review ----- ------- Signed (signature on file) Rios Castro MD 04/09/25 1008 ----- ------- END OF REPORT Naomy Boland CNM LAB CYTOLOGY ORDERABLES F inal Result Performing Organization Address City/[facility]/ZIP Co de Phone Number [facility] [address] [place] [address] [phone] * Magnesium (04/01/2025 3:26 PM EDT) Magnesium 2.1 1.6 - 2.6 mg/dL [facility] Blood Venous blood specimen / Unknown 04/01/2025 3:26 PM EDT 04/01/2025 4:08 PM EDT Corin Doyle MD LAB BLOOD ORDERABLES Final Resul t Performing Organization Address [facility] Co de Phone Number [facility] [address] [place] [address] [phone] * (ABNORMAL) Basic Metabolic Panel (04/01/2025 3:26 PM EDT) Only the most recent of2 resultswithin the time period is included. Sodium 144 135 - 145 mmol/L [facility] Potassium 3.6 3.3 - 5.1 mmol/L [facility] Chloride 109(H) 96 - 108 mmol/L [facility] Carbon Dioxide 29 22 - 29 mmol/L [facility] Anion Gap 10(L) 12 - 20 [facility] Urea Nitrogen (BUN) 15 9 - 16 mg/dL [facility] Creatinine, Serum 0.81 0.5 - 1.4 mg/dL [facility] Estimated Glomerular Filt Rate >60 [facility] Comment:Chronic Kidney Disea se: Estimated GFR < 60 mL/min/1.70r5Zavawr Kidney Disease: Estimated GFR < 15 mL/min/1.73m2 Glucose 87 60 - 115 mg/dL [facility] Calcium 8.9 8.4 - 10.2 mg/dL [facility] Blood Venous blood specimen / Unknown 04/01/2025 3:26 PM EDT 04/01/2025 4:08 PM EDT Corin Doyle MD LAB BLOOD ORDERABLES Final Resul t Performing Organization Address City/[facility]/ZIP Co de Phone Number [facility] [address] [place] [phone] * Lipid Panel with Reflex to Direct LDL (08/14/2024 4:05 PM EST) Triglycerides 114 <150 mg/dL [facility] Comment:Desirable Triglyceri de: less than 150 mg/dLBorderline High Triglyceride 150-199 mg/dLHigh Triglyceride: 200-499 mg/dLVery High Triglyceride: greater than or equal to 5OO mg/dL Cholesterol 146 <200 mg/dL [facility] Comment:Desirable Cholestero l: less than 200 mg/dLBorderline High Cholesterol: 200-239 mg/dLHigh Cholesterol: greater than 239 mg/dL LDL Cholesterol Calculated 83 <100 mg/dL [facility] Comment:Desirable LDL: less than 100 mg/dLNear Optimal/Above Optimal LDL: 110- 129 mg/dLBorderline High LDL: 130-159 mg/dLHigh LDL: 160-189 mg/dLVery High LDL: greater than or equal to 190 mg/dL HDL Cholesterol 41 >40 mg/dL [facility] Comment:Desirable HDL: great er than 40 mg/dL Note: This HDL assay may give artificially low results in patients with liver disease. Blood 08/14/2024 4:05 PM EST 08/14/2024 5:33 PM EST Corin Doyle MD LAB BLOOD ORDERABLES Final Resul t [facility] [address] [place] [address] [phone] * BI US Breast Limited Left (01/26/2024 3:08 PM EDT) Anatomical Region Laterality Modality Breast Left Ultrasound 01/26/2024 3:08 PM EDT Narrative 01/26/2024 4:54 PM EDT [facility] [address] [place], [place] [address] Ultrasound Report Signed Patient: Janelle León MR#: [id number] : 1975 Acct:[id number] Age/Sex: 48 / F ADM Date: 01/26/24 Loc: HO.MAMMO Attending Dr: Corin Doyle MD Ordering Physician: Corin Doyle MD Date of Service: 01/26/24 Procedure(s): US breast LT limited mamm only Accession Number(s): [id number] cc: Corin Doyle MD EXAMINATION: MM DIAGNOSTIC [...] in OV> 01/26/24 1651 DD/ 1508 TD/TT: Inspector Fuel Hose: Procedure Note Donotuseinterpreter, Image - 01/26/2024 [facility] [address] [place] [address] Ultrasound Report Signed Patient: Janelle León GMR#: [id number] : 1975Acct:[id number] Age/Sex: 48 / FADM Date: 01/26/24 Loc: HO.MAMMO Attending Dr: Corin Doyle MD Ordering Physician: Corin Doyle MD Date of Service: 01/26/24 Procedure(s): US breast LT limited mamm only Accession Number(s): [id number] cc: Corin Doyle MD EXAMINATION: MM DIAGNOSTIC [...] in OV> 01/26/24 1651 DD/ 1508 TD/TT: Inspector Fuel Hose: Corin Doyle MD IMG US PROCEDURES Final Result * Hepatitis A,B,C Profile (11/11/2023 8:41 AM EDT) Hepatitis A IgM Nonreactive Nonreactive [facility] Comment:IgM antibodies to GUZMÁN V not detected; does not exclude earlyacute or recovered HAV infection. ~Hepatitis B Surface Antibody REACTIVE Nonreactive [facility] Comment:REACTIVE: > 11.99 mI U/mL Hepatitis B Core Antibody Nonreactive Nonreactive [facility] Hepatitis C Antibody Nonreactive Nonreactive [facility] Comment:Antibodies to HCV no t detected; does not exclude early acuteHCV infection. Hepatitis B Surface Ag Negative Negative [facility] Blood Venous blood specimen / Unknown 11/11/2023 8:41 AM EDT 11/11/2023 11:40 AM EDT us Corin Doyle MD LAB BLOOD ORDERABLES Final Resul t [facility] [address] [place] [phone] * HIV 1/2 ANTIGEN/ANTIBODY,FOURTH GENERATION W/RFL (07/23/2020 12:19 PM EST) HIV-1/2 ANTIGEN AND ANTIBODIES, 4TH GENERATION W/ REFLEX NON-REACT LU NON-REACT LU [facility] Comment: HIV-1 antigen and HIV-1/HIV-2 [...] purpose. For additional information please refer to http://CLIPPATE.eVendor Check/faq/SQC381 (This link is being provided for informational/ educational purposes only.) The performance of this assay has not been clinically validated in patients less than 2 years old. 07/23/2020 12:1 9 PM EST us Corin Doyle MD LAB BLOOD ORDERABLES Final Resul t Performing Organization Address City/State/[facility] Co de Phone Number [facility] [address] from Last 3 Months or Most Recently Relevant to Health Maintenance Insurance * Guarantor: Janelle León Account Type Relation to Patient Date of Phone Billing Address Personal/Family Self 1975 [address] [place] [address] [facility] [employer] C[facility] MEDICAID STAND ADULT Care Teams Photoengraving Photographer Relationship Specialty Start Date End Date Corin Doyle MD [address] [place] [address] PCP - General Family Medicine 07/18/18 Sam Peace, PharmD [address] [place] [address] Pharmacist Pharmacy 03/06/25 Danay Carmen Molasses And Caramel OperatorThread Drawer 12/09/23 Danay Carmen Molasses And Caramel OperatorThread Drawer 08/27/24
--- OUTSIDE RECORDS SUMMARY | 2025-04-11 20:03 | XMS_ITS | Encounter Summary ---
Author Organization [employer] Address [address] [facility] [address] 7t [place] [address] Care Team Providers Care Life Specialist Name Role Phone Corin Doyle MD Primary Care Provider [phone] Sam Peace PharmD Unavailable [phone] Encounter Details Date Type Department Care Team ([facility] st Contact Info) Description 04/06/2025 Telephone [facility] MEDICINE [address] [place], [place] [phone] Corin Doyle MD [address] [place] [address] Social History Tobacco Use Types Packs/Day Years [...] Description 05/06/2025 2:30 PM EDT Office Visit [address] [address] Corin Doyle MD [address] [place] [address] 07/01/2025 3:30 PM EST Medication Management [address] [address] Sam Peace, Yulissa [address] [place] [address] documented as of this encounter Visit Diagnoses Not on filedocumented in this encounter Additional Health Concerns Assessment Noted Time PHQ-9 Depression Total Score: 0 08/14/19 25 3:31 PM EST documented as of this encounter Care Teams Life Specialist Relationship Specialty Start Date End Date Corin Doyle MD [address] [place] [address] PCP - General Family Medicine 07/18/18 Sam Peace, PharmD [address] [place] [address] [phone] Pharmacist Pharmacy 03/06/25 Danay Carmen Electroplater HelperCyber Security Instructor 12/09/23 Danay Carmen Electroplater HelperCyber Security Instructor 08/27/24 documented as of this encounter
--- OUTSIDE RECORDS SUMMARY | 2025-04-11 20:03 | XMS_ITS | Encounter Summary ---
Author Organization [employer] Address [address] [facility] [address] 7t [place] [address] Care Team Providers Care Fire Marshal Refinery Name Role Phone Corin Doyle MD Primary Care Provider [phone] Sam Peace PharmD Unavailable [phone] Reason for Visit * Reason Onset Date Comments Med Refill 04/02/2024 Encounter Details Date Type Department Care Team (Late st Contact Info) Description 04/02/2024 Refill [facility] MEDICINE 230 [place] [address] Corin Doyle MD 230 [place] [address] Social History Tobacco Use Types Packs/Day Years [...] [facility] [address] [place] [address] Corin Doyle MD [address] [place] [address] 07/01/2025 3:30 PM EST Medication Management [facility] [address] [place] [address] Sam Peace, PharmD [address] [place] [address] documented as of this encounter Visit Diagnoses Not on filedocumented in this encounter Additional Health Concerns Assessment Noted Time PHQ-9 Depression Total Score: 0 11/24/19 23 3:58 PM EDT documented as of this encounter Care Teams Fire Marshal Refinery Relationship Specialty Start Date End Date Corin Doyle MD [address] [place] [address] PCP - General Family Medicine 07/18/18 Sam Peace, PharmD [address] [place] [address] Pharmacist Pharmacy 03/06/25 Danay Carmen Car Repairer PullmanSugar Cane Planting Equipment Operator 12/09/23 Danay Carmen Car Repairer PullmanSugar Cane Planting Equipment Operator 08/27/24 documented as of this encounter
--- OUTSIDE RECORDS SUMMARY | 2025-04-11 20:03 | XMS_ITS | Encounter Summary ---
Author Organization [employer] Address [address] [facility] 7t [place] [address] Care Team Providers Care Plastic Surgery Technician Name Role Phone Corin Doyle MD Primary Care Provider [phone] Sam Peace PharmD Unavailable [phone] Reason for Visit * Reason Onset Date Comments Med Refill 01/30/2025 Encounter Details Date Type Department Care Team (Late st Contact Info) Description 01/30/2025 Refill [facility] MEDICINE 230 [place] [address] Corin Doyle MD 230 [place] [address] Social History Tobacco Use Types Packs/Day Years [...] Office Visit [facility] MEDICINE [address] [place] [address] Corin Doyle MD [address] [place] [address] 07/01/2025 3:30 PM EST Medication Management [facility] [address] [place] [phone] Sam Peace PharmD [address] [place] [address] documented as of this encounter Visit Diagnoses Not on filedocumented in this encounter Additional Health Concerns Assessment Noted Time PHQ-9 Depression Total Score: 0 08/14/19 25 3:31 PM EST documented as of this encounter Care Teams Plastic Surgery Technician Relationship Specialty Start Date End Date Corin Doyle MD [address] [place] [address] PCP - General Family Medicine 07/18/18 Sam Peace, ConchisD [address] [place] [address], [place] [address] Pharmacist Pharmacy 03/06/25 Danay Carmen Orthotic/Prosthetic PractitionerOcean Biologist 12/09/23 Danay Carmen Orthotic/Prosthetic PractitionerOcean Biologist 08/27/24 documented as of this encounter
--- OUTSIDE RECORDS SUMMARY | 2025-04-11 20:03 | XMS_ITS | Encounter Summary ---
Author Organization [employer] Address [address] [facility] [address] 7t [place] [address] Care Team Providers Care Transmission System Operator Name Role Phone Corin Doyle MD Primary Care Provider [phone] Sam Peace PharmD Unavailable [phone] Encounter Details Date Type Department Care Team ([facility] st Contact Info) Description 08/17/2024 Orders Only [facility] MEDICINE 230 [place], [place] [phone] Corin Doyle MD 230 [place] [address] Social History Tobacco Use Types Packs/Day Years [...] Description 05/06/2025 2:30 PM EDT Office Visit [facility] [address] [place] [phone] Corin Doyle MD [address] [place] [address] 07/01/2025 3:30 PM EST Medication Management [address] [address] Sam Peace, Yulissa [address] [place] [address] documented as of this encounter Visit Diagnoses Not on filedocumented in this encounter Additional Health Concerns Assessment Noted Time PHQ-9 Depression Total Score: 0 08/14/19 25 3:31 PM EST documented as of this encounter Care Teams Transmission System Operator Relationship Specialty Start Date End Date Corin Doyle MD [address] [place] [address] PCP - General Family Medicine 07/18/18 Sam Peace, PharmD [address] [place] [address] [phone] Pharmacist Pharmacy 03/06/25 Danay Carmen Commercial Account ExecutiveCooler Servicer 12/09/23 Danay Carmen Commercial Account ExecutiveCooler Servicer 08/27/24 documented as of this encounter
--- OUTSIDE RECORDS SUMMARY | 2025-04-11 20:03 | XMS_ITS | Encounter Summary ---
Author Organization [employer] Address [address] [facility] [address] 7[address] [place] [address] Care Team Providers Care Car Rental Clerk Name Role Phone Corin Doyle MD Primary Care Provider [phone] Sam Peace PharmD Unavailable [phone] Reason for Visit * Reason Onset Date Comments Med Refill 03/29/2024 Encounter Details Date Type Department Care Team (Late st Contact Info) Description 03/29/2024 Refill [facility] MEDICINE 230 [place] [address] Corin Doyle MD 230 [place] [address] Social History Tobacco Use Types Packs/Day Years [...] Office Visit [facility] MEDICINE [address] [place] [address] Corin Doyle MD [address] [place] [address] 07/01/2025 3:30 PM EST Medication Management [facility] MEDICINE [address] [place] [address] Sam Peace, PharmD [address] [place] [address] documented as of this encounter Visit Diagnoses Not on filedocumented in this encounter Additional Health Concerns Assessment Noted Time PHQ-9 Depression Total Score: 0 11/24/19 23 3:58 PM EDT documented as of this encounter Care Teams Car Rental Clerk Relationship Specialty Start Date End Date Corin Doyle MD [address] [place] [address] PCP - General Family Medicine 07/18/18 Sam Peace, PharmD [address] [place] [phone] Pharmacist Pharmacy 03/06/25 Danay Carmen Services Delivery DriverFish Cake Maker 12/09/23 Danay Carmen Services Delivery DriverFish Cake Maker 08/27/24 documented as of this encounter
--- OUTSIDE RECORDS SUMMARY | 2025-04-11 20:03 | XMS_ITS | Encounter Summary ---
Author Organization [employer] Address [address] [facility] [address] 7t [place] [address] Care Team Providers Care Direct Sales Professional Name Role Phone Corin Doyle MD Primary Care Provider [phone] Sam Peace PharmD Unavailable [phone] Reason for Visit * Reason Onset Date Comments Med Refill 12/13/2023 Encounter Details Date Type Department Care Team (Late st Contact Info) Description 12/13/2023 Refill [facility] MEDICINE 230 [place] [address] Corin Doyle MD 230 [place] [address] Social History Tobacco Use Types Packs/Day Years [...] 2:30 PM EDT Office Visit [facility] MEDICINE [address] [place] [address] Corin Doyle MD [address] [place] [address] 07/01/2025 3:30 PM EST Medication Management [facility] MEDICINE [address] [place] [address] Sam Peace, PharmD [address] [place] [address] documented as of this encounter Visit Diagnoses Not on filedocumented in this encounter Additional Health Concerns Assessment Noted Time PHQ-9 Depression Total Score: 0 11/24/19 23 3:58 PM EDT documented as of this encounter Care Teams Direct Sales Professional Relationship Specialty Start Date End Date Corin Doyle MD [address] [place] [address] PCP - General Family Medicine 07/18/18 Sam Peace, PharmD [address] [place] [address] Pharmacist Pharmacy 03/06/25 Danay Carmen Search SpecialistBottom Stop Attacher 12/09/23 Danay Carmen Search SpecialistBottom Stop Attacher 08/27/24 documented as of this encounter
--- OUTSIDE RECORDS SUMMARY | 2025-04-11 20:03 | XMS_ITS | Encounter Summary ---
Author Organization [employer] Address [address] [facility] [facility] [address] 7t [place] [address] Care Team Providers Care Acoustical Installer Name Role Phone Corin Doyle MD Primary Care Provider [phone] Sam Peace PharmD Unavailable [phone] Reason for Visit * Reason Onset Date Comments Referral 10/18/2023 Encounter Details Date Type Department Care Team ([facility] st Contact Info) Description 10/18/2023 Telephone [facility] MEDICINE 230 [place] [address] Corin Doyle MD 230 [place] [address] Referral Social History Tobacco Use Types Packs/Day [...] - 10/18/2023 3:42 PM EDT Tc from [facility] with [facility] calling in regards referral for cardiology, stated pt discussed referral on last appt with PCP on 08/08 and the referral is to control high blood pressure. documented in this encounter Plan of Treatment Upcoming Encounters Date Type Department Care Team (Late st Contact Info) Description 05/06/2025 2:30 PM EDT Office Visit [facility] MEDICINE [address] [place] [address] Corin Doyle MD [address] [place] [address] 07/01/2025 3:30 PM EST Medication Management [facility] MEDICINE [address] [place] [address] Sam Peace, PharmD 230 [place] [address] documented as of this encounter Visit Diagnoses Not on filedocumented in this encounter Additional Health Concerns Assessment Noted Time PHQ-9 Depression Total Score: 0 11/24/19 23 3:58 PM EDT documented as of this encounter Care Teams Acoustical Installer Relationship Specialty Start Date End Date Corin Doyle MD [address] [place] [address] PCP - General Family Medicine 07/18/18 Sam Peace, PharmD [address] [place] [address] Pharmacist Pharmacy 03/06/25 Danay Carmen Employment Programs AnalystMaintenance Mechanic Supervisor 12/09/23 Danay Carmen Employment Programs AnalystMaintenance Mechanic Supervisor 08/27/24 documented as of this encounter
--- OUTSIDE RECORDS SUMMARY | 2025-04-11 20:03 | XMS_ITS | Encounter Summary ---
Author Organization [employer] Address [address] [facility] [address] 7t [place] [address] Care Team Providers Care Front Office Specialist Name Role Phone Corin Doyle MD Primary Care Provider [phone] Sam Peace PharmD Unavailable [phone] Encounter Details Date Type Department Care Team ([facility] st Contact Info) Description 01/01/2025 Orders Only [facility] MEDICINE 230 [place], [place] [phone] Corin Doyle MD 230 [place] [address] Social History Tobacco Use Types Packs/Day Years [...] 2:30 PM EDT Office Visit [facility] MED[facility]INE [address] [place] [address] Corin Doyle MD [address] [place] [address] 07/01/2025 3:30 PM EST Medication Management [address] [address] Sam Peace, Yulissa [address] [place] [address] documented as of this encounter Visit Diagnoses Not on filedocumented in this encounter Additional Health Concerns Assessment Noted Time PHQ-9 Depression Total Score: 0 08/14/19 25 3:31 PM EST documented as of this encounter Care Teams Front Office Specialist Relationship Specialty Start Date End Date Corin Doyle MD [address] [place] [address] PCP - General Family Medicine 07/18/18 Sam Peace, PharmD [address] [place] [address] [phone] Pharmacist Pharmacy 03/06/25 Danay Carmen Prop DrawerMarket Research Senior Project Manager 12/09/23 Danay Carmen Prop DrawerMarket Research Senior Project Manager 08/27/24 documented as of this encounter
--- OUTSIDE RECORDS SUMMARY | 2025-04-11 20:03 | XMS_ITS | Encounter Summary ---
Author Organization [employer] Address [address] [facility] [address] [facility] [address] 7t [place] [address] Care Team Providers Care Coffee Host Name Role Phone Corin Doyle MD Primary Care Provider [phone] Sam Peace PharmD Unavailable [phone] Reason for Visit * Reason Onset Date Comments Med Refill 11/02/2023 Encounter Details Date Type Department Care Team (Late st Contact Info) Description 11/02/2023 Refill [facility] MEDICINE 230 [place] [address] Corin Doyle MD 230 [place] [address] Social History Tobacco Use Types Packs/Day Years [...] instructions back to me. Also sent on [employer] so pt has them written out since she is active on [employer].[place] scheduled for 11/15 with [facility] for blood pressure check. Pt verbalized [...] 05/06/2025 2:30 PM EDT Office Visit [facility] MEDICINE 230 [place] [address] Corin Doyle MD [address] [place] [address] [phone] 07/01/2025 3:30 PM EST Medication Management [facility] MEDICINE 230 [place], [place] [phone] Sam Peace, PharmD [address] [place] [address] [phone] documented as of this encounter Visit Diagnoses Not on filedocumented in this encounter Additional Health Concerns Assessment Noted Time PHQ-9 Depression Total Score: 0 11/24/19 23 3:58 PM EDT documented as of this encounter Care Teams Coffee Host Relationship Specialty Start Date End Date Corin Doyle MD [address] [place] [address] [phone] PCP - General Family Medicine 07/18/18 Sam Peace, PharmD [address] [place] [address] [phone] Pharmacist Pharmacy 03/06/25 Danay Carmen City Superintendent Of SchoolsTransportation Assistant 12/09/23 Danay Carmen City Superintendent Of SchoolsTransportation Assistant 08/27/24 documented as of this encounter
--- OUTSIDE RECORDS SUMMARY | 2025-04-11 20:03 | XMS_ITS | Encounter Summary ---
Author Organization [employer] Address [address] [facility] [address] 7t [place] [address] Care Team Providers Care Advertising Space Clerk Name Role Phone Corin Doyle MD Primary Care Provider [phone] Sam Peace PharmD Unavailable [phone] Encounter Details Date Type Department Care Team ([facility] st Contact Info) Description 08/16/2023 Orders Only [facility] 230 [place], [place] [phone] Eddie Guerrero MD 230 [place], [place] [phone] Social History Tobacco Use Types Packs/Day Years [...] Description 05/06/2025 2:30 PM EDT Office Visit [facility] [address] [place] [address] Corin Doyle MD [address] [place] [address] 07/01/2025 3:30 PM EST Medication Management [facility] [address] [place] [address] Sam Peace, PharmD [address] [place] [address] documented as of this encounter Visit Diagnoses Not on filedocumented in this encounter Additional Health Concerns Assessment Noted Time PHQ-9 Depression Total Score: 0 11/24/19 23 3:58 PM EDT documented as of this encounter Care Teams Advertising Space Clerk Relationship Specialty Start Date End Date Corin Doyle MD [address] [place] [address] PCP - General Family Medicine 07/18/18 Sam Peace, PharmD [address] [place] [address] [phone] Pharmacist Pharmacy 03/06/25 Danay Carmen Metal TreaterDigester Operator 12/09/23 Danay Carmen Metal TreaterDigester Operator 08/27/24 documented as of this encounter
--- OUTSIDE RECORDS SUMMARY | 2025-04-11 20:03 | XMS_ITS | Encounter Summary ---
Author Organization [employer] Address [address] [facility] 7t [place] [address] Care Team Providers Care First Officer Name Role Phone Corin Doyle MD Primary Care Provider [phone] Sam Peace PharmD Unavailable [phone] Reason for Visit * Reason Onset Date Comments Med Refill 03/01/2025 Encounter Details Date Type Department Care Team (Late st Contact Info) Description 03/01/2025 Refill [facility] [address] [place] [address] Corin Doyle MD 230 [place] [address] Social History Tobacco Use Types Packs/Day Years [...] PM EDT Office Visit [facility] [address] [place] [address] Corin Doyle MD [address] [place] [address] 07/01/2025 3:30 PM EST Medication Management [facility] [address] [place] [address] Sam Peace PharmD [address] [place] [address] documented as of this encounter Visit Diagnoses Not on filedocumented in this encounter Additional Health Concerns Assessment Noted Time PHQ-9 Depression Total Score: 0 08/14/19 25 3:31 PM EST documented as of this encounter Care Teams First Officer Relationship Specialty Start Date End Date Corin Doyle MD [address] [place] [address] PCP - General Family Medicine 07/18/18 Sam Peace, ConchisD [address] [place] [address], [place] [address] Pharmacist Pharmacy 03/06/25 Danay Carmen Dairy Manufacturing TechnologistAviation Electrician 12/09/23 Danay Carmen Dairy Manufacturing TechnologistAviation Electrician 08/27/24 documented as of this encounter
--- OUTSIDE RECORDS SUMMARY | 2025-04-11 20:03 | XMS_ITS | Encounter Summary ---
Author Organization [employer] Address [address] [facility] [address] 7t [place] [address] Care Team Providers Care Landscaper Name Role Phone Corin Doyle MD Primary Care Provider [phone] Sam Peace PharmD Unavailable [phone] Reason for Visit * Reason Onset Date Comments Med Refill 11/14/2023 Encounter Details Date Type Department Care Team (Late st Contact Info) Description 11/14/2023 Refill [facility] 230 [place] [address] Corin Doyle MD 230 [place] [address] Rash Social History Tobacco Use Types Packs/Day [...] EDT Office Visit [facility] [address] [place] [address] Corin Doyle MD [address] [place] [address] 07/01/2025 3:30 PM EST Medication Management [facility] [address] [place] [address] Sam Peace, PharmD [address] [place] [address] documented as of this encounter Visit Diagnoses Diagnosis Rash Rash and other nonspecific skin eruption documented in this encounter Additional Health Concerns Assessment Noted Time PHQ-9 Depression Total Score: 0 11/24/19 23 3:58 PM EDT documented as of this encounter Care Teams Landscaper Relationship Specialty Start Date End Date Corin Doyle MD [address] [place] [address] PCP - General Family Medicine 07/18/18 Sam Peace, PharmD [address] [place] [address] [phone] Pharmacist Pharmacy 03/06/25 Danay Carmen Clinical RnStudio Director 12/09/23 Danay Carmen Clinical RnStudio Director 08/27/24 documented as of this encounter
--- OUTSIDE RECORDS SUMMARY | 2025-04-11 20:03 | XMS_ITS | Encounter Summary ---
Author Organization [employer] Address [address] [facility] [address] 7t [place] [address] Care Team Providers Care Equipment Washer Name Role Phone Corin Doyle MD Primary Care Provider [phone] Sam Peace PharmD Unavailable [phone] Reason for Visit * Reason Onset Date Comments Med Refill 11/01/2023 Encounter Details Date Type Department Care Team (Late st Contact Info) Description 11/01/2023 Refill [facility] 230 [place] [address] Corin Doyle MD 230 [place] [address] Social History Tobacco Use Types Packs/Day Years [...] PM EDT Office Visit [facility] [address] [place] [address] Corin Doyle MD [address] [place] [address] 07/01/2025 3:30 PM EST Medication Management [facility] [address] [place] [phone] Sam Peace, PharmD [address] [place] [address] documented as of this encounter Visit Diagnoses Not on filedocumented in this encounter Additional Health Concerns Assessment Noted Time PHQ-9 Depression Total Score: 0 11/24/19 23 3:58 PM EDT documented as of this encounter Care Teams Equipment Washer Relationship Specialty Start Date End Date Corin Doyle MD [address] [place] [address] PCP - General Family Medicine 07/18/18 Sam Peace, PharmD [address] [place] [address] Pharmacist Pharmacy 03/06/25 Danay Carmen Electro Mechanical TechnicianFreelance Data Entry 12/09/23 Danay Carmen Electro Mechanical TechnicianFreelance Data Entry 08/27/24 documented as of this encounter
--- OUTSIDE RECORDS SUMMARY | 2025-04-11 20:03 | XMS_ITS | Encounter Summary ---
Author Organization [employer] Address [address] [facility] [address] 7t [place] [address] Care Team Providers Care Vp Mobile Products Name Role Phone Corin Doyle MD Primary Care Provider [phone] Sam Peace PharmD Unavailable [phone] Reason for Visit * Reason Onset Date Comments Nurse Triage 05/25/2024 Encounter Details Date Type Department Care Team ([facility] st Contact Info) Description 05/25/2024 Telephone [facility] 230 [place] [address] Corin Doyle MD [address] [place] [address] Nurse Triage Social History Tobacco Use Types [...] now. RN advises pt to call [facility] back when she is discharged in [...] 05/06/2025 2:30 PM EDT Office Visit [facility] [address] [place] [address] [phone] Corin Doyle MD [address] [place] [address] 07/01/2025 3:30 PM EST Medication Management [facility] 230 [place] [address] Sam Peace, PharmD [address] [place] [address] documented as of this encounter Visit Diagnoses Not on filedocumented in this encounter Additional Health Concerns Assessment Noted Time PHQ-9 Depression Total Score: 0 11/24/19 23 3:58 PM EDT documented as of this encounter Care Teams Vp Mobile Products Relationship Specialty Start Date End Date Corin Doyle MD [address] [place] [address] PCP - General Family Medicine 07/18/18 Sam Peace, PharmD [address] [place] [address] Pharmacist Pharmacy 03/06/25 Danay Carmen Instructional Technology FacilitatorCalciner Operator 12/09/23 Danay Carmen Instructional Technology FacilitatorCalciner Operator 08/27/24 documented as of this encounter
--- OUTSIDE RECORDS SUMMARY | 2025-04-11 20:03 | XMS_ITS | Encounter Summary ---
Author Organization [employer] Address [address] [place] [address] 7t [place] [address] Care Team Providers Care Die Equipment Operator Name Role Phone Corin Doyle MD Primary Care Provider [phone] Sam Peace PharmD Unavailable [phone] Reason for Referral * Consultation (Routine) - Authorized Specialty Diagnoses / Procedures Referred By Contac t Referred To Contact Vascular Surgery Diagnoses Varicose veins of both lower extremities, unspecified whether complicated Corin Doyle MD 230 [place] [address] Phone: tel: fax: [facility] Referral ID Status Reason Start Date Expiration Date Visits Requested Visits Authorized [id number] Authorized Specialty Services Required 04/08/2025 04/08/2026 6 6 Encounter Details Date Type Department Care Team (Late st Contact Info) Description 04/06/2025 Orders Only [facility] 230 [place], [place] [phone] Corin Doyle MD [address] [place], [place] [phone] Varicose veins of both lower extremities, unspecified whether complicated (Primary Dx) Social History Tobacco Use Types [...] as of this encounter Miscellaneous Notes * Assessment & Plan Note - Corin Doyle MD - 04/06/2025 5:52 AM EDTAssociated Problem(s): Varicose veins of lower extremity -11/22/17 Venous study showed: 1. RIGHT LEG: Varicose veins are seen at all levels of the greater saphenous vein. No reflux is seen. 2. LEFT LEG: Varicosities are seen throughout the left lower extremity except for the distal thigh.Reflux is seen in the mid calf at the greater saphenous vein. -Pt was unable to wear compression stockings -Pt was referred to vascular specialist, but cancelled appt -Continue leg elevation documented in this encounter Plan of Treatment Upcoming Encounters Date Type Department Care Team (Late st Contact Info) Description 05/06/2025 2:30 PM EDT Office Visit [facility] [place] [address] Corin [facility] [place] [phone] 07/01/2025 3:30 PM EST Medication Management [facility] [place] [address] Sam Peace, PharmD [facility] [place] [phone] Scheduled Referrals Name Type Priority Associated Diagnoses Orde r Schedule Referral to Vascular Surgery Outpatient Referral Routine Varicose veins of both lower extremities, unspecified whether complicated Expected: 04/06/2025 (Approximate), Expires: 04/06/2026 documented as of this encounter Visit Diagnoses Diagnosis Varicose veins of both lower extremities, unspecified whether complicated- Primary documented in this encounter Additional Health Concerns Assessment Noted Time PHQ-9 Depression Total Score: 0 08/14/19 3:31 PM EST documented as of this encounter Care Teams Die Equipment Operator Relationship Specialty Start Date End Date Corin Doyle MD [facility] [place], [place] [phone] PCP - General Family Medicine 07/18/18 Sam Peace, PharmD [facility] [place] [address] Pharmacist Pharmacy 03/06/[address] InspectorData Center Manager 12/09/[address] InspectorData Center Manager 08/27/24 documented as of this encounter
--- OUTSIDE RECORDS SUMMARY | 2025-04-11 20:03 | XMS_ITS | Encounter Summary ---
Author Organization [employer] Address [address] [facility] [address] 7t [place] [address] Care Team Providers Care Wafer Production Worker Name Role Phone Corin Doyle MD Primary Care Provider [phone] Sam Peace PharmD Unavailable [phone] Reason for Visit * Reason Onset Date Comments Med Refill 07/12/2024 Encounter Details Date Type Department Care Team (Late st Contact Info) Description 07/12/2024 Refill [facility] 230 [place] [address] Corin Doyle MD 230 [place] [address] Social History Tobacco Use Types Packs/Day Years [...] Description 05/06/2025 2:30 PM EDT Office Visit [facility] [address] [place] [address] Corin Doyle MD [address] [place] [address] 07/01/2025 3:30 PM EST Medication Management [facility] [address] [place] [phone] Sam Peace, PharmD [address] [place] [address] documented as of this encounter Visit Diagnoses Not on filedocumented in this encounter Additional Health Concerns Assessment Noted Time PHQ-9 Depression Total Score: 0 11/24/19 23 3:58 PM EDT documented as of this encounter Care Teams Wafer Production Worker Relationship Specialty Start Date End Date Corin Doyle MD [address] [place] [address] PCP - General Family Medicine 07/18/18 Sam Peace, PharmD [address] [place] [address] 1989[address] Pharmacist Pharmacy 03/06/25 Danay Carmen Director Of Midwifery/Staff MidwifeRetail Manager 12/09/23 Danay Carmen Director Of Midwifery/Staff MidwifeRetail Manager 08/27/24 documented as of this encounter
--- OUTSIDE RECORDS SUMMARY | 2025-04-11 20:03 | XMS_ITS | Encounter Summary ---
Author Organization [employer] Address [address] [facility] [address] 7t [place] [address] Care Team Providers Care Manufacturing Machine Operator Name Role Phone Corin Doyle MD Primary Care Provider [phone] Sam Peace PharmD Unavailable [phone] Encounter Details Date Type Department Care Team (Latest Contact Info) Description 04/11/2025 Travel Social History Tobacco Use Types Packs/Day [...] Description 05/06/2025 2:30 PM EDT Office Visit [facility] [address] [place] [address] Corin Doyle MD [address] [place] [address] 07/01/2025 3:30 PM EST Medication Management [facility] [address] [place] [phone] Sam Peace, PharmD [address] [place] [address] documented as of this encounter Visit Diagnoses Not on filedocumented in this encounter Additional Health Concerns Assessment Noted Time PHQ-9 Depression Total Score: 0 08/14/19 3:31 PM EST documented as of this encounter Care Teams Manufacturing Machine Operator Relationship Specialty Start Date End Date Corin Doyle MD [address] [place] [address] PCP - General Family Medicine 07/18/18 Sam Peace, PharmD [address] [place] [address] Pharmacist Pharmacy 03/06/25 Danay Carmen Calcine Furnace LoaderOperating Room Orderly 12/09/23 Danay Carmen Calcine Furnace LoaderOperating Room Orderly 08/27/24 documented as of this encounter
--- OUTSIDE RECORDS SUMMARY | 2025-04-11 20:03 | XMS_ITS | Encounter Summary ---
Author Organization [employer] Address [address] [facility] 7t [place] [address] Care Team Providers Care Assistant Manager Airside Operations Name Role Phone Corin Doyle MD Primary Care Provider [phone] Sam Peace PharmD Unavailable Reason for Visit * Reason Comments Med Change Request Encounter Details Date Type Department Care Team ([facility] st Contact Info) Description 01/08/2024 Refill [facility] 230 [place], [place] [phone] Corin Doyle MD 230 [place], [place] [phone] Social History Tobacco Use Types Packs/Day Years [...] 05/06/2025 2:30 PM EDT Office Visit [facility] [address] [place] [address] Corin Doyle MD [address] [place] [address] 07/01/2025 3:30 PM EST Medication Management [facility] [address] [place] [address] Sam Peace, PharmD [address] [place] [address] documented as of this encounter Visit Diagnoses Not on filedocumented in this encounter Additional Health Concerns Assessment Noted Time PHQ-9 Depression Total Score: 0 11/24/19 23 3:58 PM EDT documented as of this encounter Care Teams Assistant Manager Airside Operations Relationship Specialty Start Date End Date Corin Doyle MD [address] [place] [address] PCP - General Family Medicine 07/18/18 Sam Peace, PharmD [address] [place] [address] [phone] Pharmacist Pharmacy 03/06/25 Danay Carmen AnthropometristGrain Combine Driver 12/09/23 Danay Carmen AnthropometristGrain Combine Driver 08/27/24 documented as of this encounter
--- OUTSIDE RECORDS SUMMARY | 2025-04-11 20:03 | XMS_ITS | Encounter Summary ---
Author Organization [employer] Address [address] [facility] [address] 7t [place] [address] Care Team Providers Care Mechanical Applications Engineer Name Role Phone Corin Doyle MD Primary Care Provider [phone] Sam Peace PharmD Unavailable [phone] Encounter Details Date Type Department Care Team ([facility] st Contact Info) Description 05/04/2024 Orders Only [facility] 230 [place], [place] [phone] Corin Doyle MD [address] [place] [address] Primary hypertension (Primary Dx); Acquired hypothyroidism; Hypokalemia; [...] Description 05/06/2025 2:30 PM EDT Office Visit [address] [address] Corin Doyle MD [address] [place] [address] 07/01/2025 3:30 PM EST Medication Management [address] [address] Sam Peace, PharmD [address] [place] [address] documented as of this encounter Procedures Procedure [...] 4:05 PM EST) Creatinine, Urine 312.90 mg/dL [facility] Microalbumin Urine 15.0 mg/L [facility] Microalbum Creatinine Ratio Ur 4.7 <30 ug/mg cr [facility] Comment:Albumin/Creatinine R atio Reference Ranges: Normal: < 30 ug/mg creatinine Microalbuminuria: 30 - 300 ug/mg creatinineClinical Albuminuria: > 300 ug/mg creatinine Urine 08/14/2024 4:05 PM EST 08/14/2024 5:43 PM EST us Corin Doyle MD LAB URINE ORDERABLES Final Resul t [facility] [address] [place] [phone] * Hemoglobin A1c (08/14/2024 4:05 PM [...] patient sample. Estimated Average Glucose 100 mg/dL [facility] Comment:eAG = Estimated ave rage glucose which is %A1C expressed asaverage glucose, using the formula of the X7D-FzdgyuyTpnclhr Glucose study (ADAG), Diabetes Care, Vol.31,#8,Feb. 2007 Blood Venous blood specimen / Unknown 08/14/2024 4:05 PM EST 08/14/2024 5:33 PM EST Corin Doyle MD LAB BLOOD ORDERABLES Final Resul t Performing Organization Address [facility] Co de Phone Number [facility] [address] [place] [phone] * Lipid Panel with Reflex to Direct LDL (08/14/2024 4:05 PM EST) Triglycerides 114 <150 mg/dL [facility] Comment:Desirable Triglyceri de: less than 150 mg/dLBorderline High Triglyceride 150-199 mg/dLHigh Triglyceride: 200-499 mg/dLVery High Triglyceride: greater than or equal to 5OO mg/dL Cholesterol 146 <200 mg/dL [facility] Comment:Desirable Cholestero l: less than 200 mg/dLBorderline High Cholesterol: 200-239 mg/dLHigh Cholesterol: greater than 239 mg/dL LDL Cholesterol Calculated 83 <100 mg/dL [facility] Comment:Desirable LDL: less than 100 mg/dLNear Optimal/Above Optimal LDL: 110- 129 mg/dLBorderline High LDL: 130-159 mg/dLHigh LDL: 160-189 mg/dLVery High LDL: greater than or equal to 190 mg/dL HDL Cholesterol 41 >40 mg/dL [facility] Comment:Desirable HDL: great er than 40 mg/dL Note: This HDL assay may give artificially low results in patients with liver disease. Blood 08/14/2024 4:05 PM EST 08/14/2024 5:33 PM EST Corin Doyle MD LAB BLOOD ORDERABLES Final Resul t Performing Organization Address [facility] Co de Phone Number [facility] [address] [place] [phone] * Magnesium (08/14/2024 4:05 PM EST) Magnesium 2.2 1.6 - 2.6 mg/dL [facility] Blood Venous blood specimen / Unknown 08/14/2024 4:05 PM EST 08/14/2024 5:33 PM EST Corin Doyle MD LAB BLOOD ORDERABLES Final Resul t Performing Organization Address [facility] Co de Phone Number [facility] [address] [place] [phone] * Uric acid (08/14/2024 4:05 PM EST) Pathologist [facility] Uric Acid 4.5 2.4 - 5.7 mg/dL [facility] Blood Venous blood specimen / Unknown 08/14/2024 4:05 PM EST 08/14/2024 5:33 PM EST Corin Doyle MD LAB BLOOD ORDERABLES Final Resul t Performing Organization Address [facility] de Phone Number [facility] [address] [place] [phone] * TSH with Reflex to Free T4 (08/14/2024 4:05 PM EST) Pathologist [facility] TSH reflex Free T4 3.48 0.32 - 4.0 uIU/mL [facility] Blood 08/14/2024 4:05 PM EST 08/14/2024 5:33 PM EST Corin Doyle MD LAB BLOOD ORDERABLES Final Resul t Performing Organization Address [facility] Phone Number [facility] [address] [place] [phone] * (ABNORMAL) Comprehensive Metabolic Panel (08/14/2024 4:05 PM EST) Pathologist [facility] Sodium 143 135 - 145 mmol/L [facility] Potassium 3.1(L) 3.3 - 5.1 mmol/L [facility] Chloride 106 96 - 108 mmol/L [facility] Carbon Dioxide 30(H) 22 - 29 mmol/L [facility] Anion Gap 10(L) 12 - 20 [facility] Urea Nitrogen (BUN) 14 9 - 16 mg/dL [facility] Creatinine, Serum 0.70 0.5 - 1.4 mg/dL [facility] Estimated Glomerular Filt Rate >60 [facility] Comment:Chronic Kidney Disea se: Estimated GFR < 60 mL/min/1.57e4Thjraz Kidney Disease: Estimated GFR < 15 mL/min/1.73m2 Glucose 72 60 - 115 mg/dL [facility] Calcium 9.2 8.4 - 10.2 mg/dL [facility] Bilirubin, Total 0.2 0.0 - 1.0 mg/dL [facility] Aspartate Amino Transferase 21 5 - 31 U/L [facility] Alanine Aminotransferase 24 0 - 31 U/L [facility] Total Protein 7.7 6.5 - 8.0 g/dL [facility] Albumin Level 4.1 3.5 - 5.0 g/dL [facility] Alkaline Phosphatase 109 39 - 117 U/L [facility] Blood Venous blood specimen / Unknown 08/14/2024 4:05 PM EST 08/14/2024 5:33 PM EST us Corin Doyle MD LAB BLOOD ORDERABLES Final Resul t [facility] [address] [place] [address] [phone] documented in this encounter Visit Diagnoses [...] documented as of this encounter Care Teams Mechanical Applications Engineer Relationship Specialty Start Date End Date Corin Doyle MD [address] [place] [address] PCP - General Family Medicine 07/18/18 Sam Peace, PharmD [address] [place] [address] Pharmacist Pharmacy 03/06/25 Danay Carmen Law ResearcherRental Representative 12/09/23 Danay Carmen Law ResearcherRental Representative 08/27/24 documented as of this encounter
--- OUTSIDE RECORDS SUMMARY | 2025-04-11 20:03 | XMS_ITS | Encounter Summary ---
Author Organization [employer] Address [address] [facility] [address] 7t [place] [address] Care Team Providers Care Cotton Jammer Name Role Phone Corin Doyle MD Primary Care Provider [phone] Sam Peace PharmD Unavailable [phone] Reason for Visit * Reason Onset Date Comments Med Refill 01/25/2024 Encounter Details Date Type Department Care Team (Late st Contact Info) Description 01/25/2024 Refill [facility] [address] [place] [address] Corin Doyle MD [address] [place] [address] Social History Tobacco Use Types Packs/Day Years Used Date Smoking Tobacco: Never Passive Smoke Exposure: Never Smokeless Tobacco: Never Alcohol Use Standard Drinks/Week Comments Never 0 (1 standard drink = 0.6 oz pur e alcohol) Depression Answer Date Recorded Patient Health Questionnaire-9 Score 0 11/23/2022 Housing Stability Answer Date Recorded What is your housing situation today? I have rubina mcucrdy 05/23/[address] you li [...] Description 05/06/2025 2:30 PM EDT Office Visit [facility] [address] [place] [address] Corin Doyle MD [address] [place] [address] 07/01/2025 3:30 PM EST Medication Management [facility] [address] [place] [address] Sam Peace, PharmD [address] [place] [phone] documented as of this encounter Visit Diagnoses Not on filedocumented in this encounter Additional Health Concerns Assessment Noted Time PHQ-9 Depression Total Score: 0 11/24/19 23 3:58 PM EDT documented as of this encounter Care Teams Cotton Jammer Relationship Specialty Start Date End Date Corin Doyle MD [address] [place] [phone] PCP - General Family Medicine 07/18/18 Sam Peace, PharmD [address] [place] [phone] Pharmacist Pharmacy 03/06/25 Danay Carmen LicswJudicial Reporter 12/09/23 Danay Carmen LicswJudicial Reporter 08/27/24 documented as of this encounter
--- OUTSIDE RECORDS SUMMARY | 2025-04-11 20:03 | XMS_ITS | Encounter Summary ---
Author Organization [employer] Address [address] [place] [address] 7t [place] [address] Care Team Providers Care Datapower Developer Name Role Phone Corin Doyle MD Primary Care Provider [phone] Sam Peace PharmD Unavailable [phone] Reason for Referral * Imaging (Routine) - Closed Specialty Diagnoses / Procedures Referred By Contac t Referred To Contact Radiology Diagnoses Breast cancer screening by mammogram Procedures BI Mammogram Screening Tomosynthesis Bilateral Corin Doyle MD [address] [place] [address] Phone: tel: fax: [address] Phone: tel: fax: Referral ID Status Reason Start Date Expiration Date Visits Re quested Visits Authorized [id number] Closed 11/01/2023 10/31/2024 1 1 * Consultation (Routine) - Canceled Specialty Diagnoses / Procedures Referred By Contac t Referred To Contact Gastroenterology Diagnoses Colon cancer screening Corin Doyle MD [address] [place] [address] Phone: tel: fax: Referral ID Status Reason Start Date Expiration Date Visits Requested Visits Authorized [id number] Canceled Specialty Services Required 11/01/2023 10/31/2024 1 1 * Imaging (Routine) - Closed Specialty Diagnoses / Procedures Referred By Contantwon t Referred To Contact Radiology Diagnoses Elevated liver enzymes Procedures US Abdomen Comp w elastography Corin Doyle MD [address] [place] [address] Phone: tel: fax: [facility] [address] [place] [address] Phone: tel: fax: Referral ID Status Reason Start Date Expiration Date Visits Re quested Visits Authorized [id number] Closed 11/01/2023 10/31/2024 1 1 Encounter Details Date Type Department Care Team (Late st Contact Info) Description 11/01/2023 Orders Only [facility] [address] [place] [phone] Corin Doyle MD [address] [place] [address] Elevated liver enzymes (Primary Dx); Breast cancer [...] Description 05/06/2025 2:30 PM EDT Office Visit [facility] [address] [place] [address] Corin Doyle MD [address] [place] [address] 07/01/2025 3:30 PM EST Medication Management [facility] [address] [place] [address] Sam Peace, PharmD [address] [place] [address] Scheduled Referrals Name Type Priority Associated Diagnoses [...] PM EDT Narrative 12/30/2023 5:50 AM EDT [address] [place], [place] [address] Mammography Report Signed Patient: Janelle León MR#: [id number] : 1975 Acct:[id number] Age/Sex: 48 / F ADM Date: 11/29/23 Loc: HO.MAMMO Attending Dr: Corin Doyle MD Ordering Physician: Corin Doyle MD Results: 0Incomple te: Needs Additional Imaging Evaluation Date of Service: 11/29/23 Follow Up: Additional Imagi ng Procedure(s): MM tomosynthesis screening BI Accession Number(s): [id number] cc: Corin Doyle MD EXAMINATION: MM SCREENING [...] in OV> 12/30/23 0546 DD/ 1557 TD/TT: Teaseler: Procedure Note Donotuseinterpreter, Image - [facility]30[facility] [address] [place] [address] Mammography Report Signed Patient: Janelle León GMR#: [id number] : 1975Acct:[id number] Age/Sex: 48 / FADM Date: 11/29/23 Loc: HARI Attending Dr: Corin Doyle MD Ordering Physician: Corin Doyle MDResults: 0Incomple te: Needs Additional Imaging Evaluation Date of Service: 11/29/23Follow Up: Additional Imagi ng Procedure(s): MM tomosynthesis screening BI Accession Number(s): [id number] cc: Corin Doyle MD EXAMINATION: MM SCREENING [...] in OV> 12/30/23 0546 DD/ 1557 TD/TT: Teaseler: us Corin Doyle MD IMG BI PROCEDURES Edited Result - Final * US Abdomen Comp w elastography (11/22/2023 11:50 AM EDT) Anatomical Region Laterality Modality Abdomen Ultrasound 11/22/2023 11:5 0 AM EDT Narrative 11/28/2023 5:18 PM EDT [place] [address] Ultrasound Report Signed Patient: Janelle León MR#: [id number] : 1975 Acct:[id number] Age/Sex: 48 / F ADM Date: 11/22/23 Loc: HO.US Attending Dr: Corin Doyle MD Ordering Physician: Corin Doyle MD Date of Service: 11/22/23 Procedure(s): US abdomen comp w elastography Accession Number(s): [id number] cc: Corin Doyle MD EXAMINATION: US COMPLETE [...] in OV> 11/28/23 1714 DD/ 1150 TD/TT: Teaseler: KIMI Procedure Note Donotuseinterpreter, Image - 11/28/2023 [place] [address] Ultrasound Report Signed Patient: Janelle León GMR#: [id number] : 1975Acct:[id number] Age/Sex: 48 / FADM Date: 11/22/23 Loc: HO.US Attending Dr: Corin Doyle MD Ordering Physician: Corin Doyle MD Date of Service: 11/22/23 Procedure(s): US abdomen comp w elastography Accession Number(s): [id number] cc: Corin Doyle MD EXAMINATION: US COMPLETE [...] in OV> 11/28/23 1714 DD/ 1150 TD/TT: Teaseler: KIMI us Corin Doyle MD IMG US PROCEDURES Final Result * (ABNORMAL) Potassium (11/11/2023 8:41 AM EDT) Potassium 3.2(L) 3.3 - 5.1 mmol/L [facility] Blood Venous blood specimen / Unknown 11/11/2023 8:41 AM EDT 11/11/2023 11:40 AM EDT Corin Doyle MD LAB BLOOD ORDERABLES Final Resul t [facility] [address] [place] [phone] * Hepatitis A,B,C Profile (11/11/2023 8:41 AM EDT) Hepatitis A IgM Nonreactive Nonreactive [facility] Comment:IgM antibodies to GUZMÁN V not detected; does not exclude earlyacute or recovered HAV infection. ~Hepatitis B Surface Antibody REACTIVE Nonreactive [facility] Comment:REACTIVE: > 11.99 mI U/mL Hepatitis B Core Antibody Nonreactive Nonreactive [facility] Hepatitis C Antibody Nonreactive Nonreactive [facility] Comment:Antibodies to HCV no t detected; does not exclude early acuteHCV infection. Hepatitis B Surface Ag Negative Negative [facility] Blood Venous blood specimen / Unknown 11/11/2023 8:41 AM EDT 11/11/2023 11:40 AM EDT us Corin Doyle MD LAB BLOOD ORDERABLES Final Resul t [facility] [address] [place] [phone] * (ABNORMAL) CBC auto differential (11/11/2023 8:41 AM EDT) White Blood Count 6.6 4.8 - 10.8 X10*3/uL [facility] Red Blood Count 5.08 4.20 - 5.50 X10*6/uL [facility] Hemoglobin 13.4 12.0 - 16.0 g/dl [facility] Hematocrit 42.1 37.0 - 47.0 % [facility] Mean Corpuscular Volume 82.9 80.0 - 98.0 fL [facility] Mean Corpuscular Hemoglobin 26.4(L) 27.0 - 33.0 pg [facility] Mean Corpuscular HGB Conc 31.8 31.0 - 35.0 g/dl [facility] Red Cell Distribution Width 14.4 11.0 - 16.0 % [facility] Platelet Count 267 160 - 400 X10*3/uL [facility] Mean Platelet Volume 11.0 9.4 - 12.3 fL [facility] Neutrophils Percent Auto 59.9 45 - 73 % [facility] Imm Gran Pct Auto 0.6(H) 0.0 - 0.4 % [facility] Lymphocytes Percent Auto 26.2 20 - 40 % [facility] Monocytes Percent Auto 8.4 2 - 11 % [facility] Eosinophils Percent Auto 3.8 0 - 4 % [facility] Basophils Percent Auto 1.1 0 - 2 % [facility] NRBC Pct Auto 0.0 0.0 - 0.2 /100WBC [facility] Neutrophils Absolute Auto 3.9 2.0 - 8.3 x10*3/uL [facility] Imm Gran Abs Auto 0.04(H) 0.00 - 0.03 X10*3/uL [facility] Lymphocytes Absolute Auto 1.7 1.2 - 4.9 X10*3/uL [facility] Monocytes Absolute Auto 0.6 0.1 - 1.2 X10*3/uL [facility] Eosinophils Absolute Auto 0.3 0.0 - 0.4 X10*3/uL [facility] Basophils Absolute Auto 0.1 0.0 - 0.2 X10*3/uL [facility] NRBC Abs Auto 0.000 0.0 - 0.012 X10*3/uL [facility] Blood Venous blood specimen / Unknown 11/11/2023 8:41 AM EDT 11/11/2023 11:40 AM EDT Corin Doyle MD LAB BLOOD ORDERABLES Final Resul t [facility] [address] [place] [phone] [phone] documented in this encounter Visit Diagnoses Diagnosis Elevated liver enzymes- Primary Other nonspecific abnormal serum enzyme levels Breast cancer screening by mammogram Colon cancer screening Special screening for malignant neoplasms, colon Hypokalemia Hypopotassemia documented in this encounter Additional Health Concerns Assessment Noted Time PHQ-9 Depression Total Score: 0 11/24/19 23 3:58 PM EDT documented as of this encounter Care Teams Datapower Developer Relationship Specialty Start Date End Date Corin Doyle MD [address] [place] [address] PCP - General Family Medicine 07/18/18 Sam Peace, PharmD [address] [place] [address] Pharmacist Pharmacy 03/06/25 Danay Carmen Melt HelperLombardi Developer 12/09/23 Danay Carmen Melt HelperLombardi Developer 08/27/24 documented as of this encounter
--- OUTSIDE RECORDS SUMMARY | 2025-04-11 20:03 | XMS_ITS | Encounter Summary ---
Author Organization [employer] Address [address] [facility] 7t [place] [address] Care Team Providers Care Coater Hand Name Role Phone Corin Doyle MD Primary Care Provider [phone] Sam Peace PharmD Unavailable [phone] Reason for Visit * Reason Onset Date Comments Nurse Triage 04/11/2025 Encounter Details Date Type Department Care Team ([facility] st Contact Info) Description 04/11/2025 Telephone [facility] [address] [place] [address] Corin Doyle MD [address] [place] [address] Nurse Triage Social History Tobacco Use Types [...] encounter Miscellaneous Notes * Telephone Encounter - Kaya Levy RN - 04/11/2025 11:50 AM EDT Called pt. Via [employer] [phone] Sharon. Pt. States that she has been having severe bladder pain x 2 days and is spreading to lower back. No burning with urination but has increased frequency. Nofever. Appointment. Made for 245pm today in [facility] with Karli. Protocol Used: Urinary Symptoms (Adult) Protocol-Based Disposition: See in Office or Video Visit Today- appointment. 245pm in [facility]. Video visit offer not recorded Positive Triage Questions: * Side (flank) or lower back pain present * Urinating more frequently than usual (i.e., frequency) OR new-onset of the feeling of an urgent need to urinate (i.e., urgency) * Patient wants to be seen * All higher-acuity triage questions were negative * Telephone Encounter - Hasmukh Armas - 04/11/2025 11:49 AM EDT Symptom: Vaginal Symptoms - Not Bleeding Outcome: Talk to a nurse or provider within 15 minutes Reason: Severe pelvic pain now The caller accepted this outcome. Contact pt at [phone] (english) documented in this encounter Plan of Treatment Upcoming Encounters Date Type Department Care Team (Late st Contact Info) Description 05/06/2025 2:30 PM EDT Office Visit [facility] [place] [address] Corin Doyle MD [place], [place] [phone] 07/01/2025 3:30 PM EST Medication Management [facility] [address] [place] [address] Sam Peace, PharmD [address] [place] [phone] documented as of this encounter Visit Diagnoses Not on filedocumented in this encounter Additional Health Concerns Assessment Noted Time PHQ-9 Depression Total Score: 0 08/14/19 3:31 PM EST documented as of this encounter Care Teams Coater Hand Relationship Specialty Start Date End Date Corin Doyle MD [address] [place] [address] [phone] PCP - General Family Medicine 07/18/18 Sam Peace, PharmD [address] [place] [address] [phone] Pharmacist Pharmacy 03/06/25 Danay Carmen Resp TherWarping Machine Operator 12/09/23 Danay Carmen Resp TherWarping Machine Operator 08/27/24 documented as of this encounter
--- OUTSIDE RECORDS SUMMARY | 2025-04-11 20:03 | XMS_ITS | Encounter Summary ---
Author Organization [employer] Address [address] [facility] [address] 7t [place] [address] Care Team Providers Care Residential Sales Rep Name Role Phone Corin Doyle MD Primary Care Provider [phone] Sam Peace PharmD Unavailable [phone] Reason for Visit * Reason Onset Date Comments Med Refill 12/03/2024 Encounter Details Date Type Department Care Team (Late st Contact Info) Description 12/03/2024 Refill [facility] [address] [place] [address] Eddie Guerrero MD [address] [place] [address] Moderate persistent asthma with acute exacerbation Social [...] Office Visit [facility] [address] [place] [address] Corin Doyle MD [address] [place] [address] 07/01/2025 3:30 PM EST Medication Management [facility] [address] [place] [address] Sam Peace PharmD [address] [place] [phone] documented as of this encounter Visit Diagnoses Diagnosis Moderate persistent asthma with acute exacerbation documented in this encounter Additional Health Concerns Assessment Noted Time PHQ-9 Depression Total Score: 0 08/14/19 25 3:31 PM EST documented as of this encounter Care Teams Residential Sales Rep Relationship Specialty Start Date End Date Corin Doyle MD [address] [place] [address] PCP - General Family Medicine 07/18/18 Sam Peace, ConchisD [address] [place] [phone] Pharmacist Pharmacy 03/06/25 Danay Carmen Quality SpecialistMortgage Accounting Clerk 12/09/23 Danay Carmen Quality SpecialistMortgage Accounting Clerk 08/27/24 documented as of this encounter
--- OUTSIDE RECORDS SUMMARY | 2025-04-11 20:03 | XMS_ITS | Encounter Summary ---
Author Organization [employer] Address [address] [facility] [address] 7[address] [place] [address] Care Team Providers Care Grip Name Role Phone Corin Doyle MD Primary Care Provider [phone] Sam Peace PharmD Unavailable [phone] Reason for Visit * Reason Onset Date Comments Med Refill 01/25/2024 Encounter Details Date Type Department Care Team (Late st Contact Info) Description 01/25/2024 Refill [facility] [address] [place] [address] Corin Doyle MD [address] [place] [address] Social History Tobacco Use Types Packs/Day Years [...] Description 05/06/2025 2:30 PM EDT Office Visit [facility] [address] [place] [address] Coirn Doyle MD [address] [place] [address] 07/01/2025 3:30 PM EST Medication Management [facility] [address] [place] [address] Sam Peace, PharmD [address] [place] [address] documented as of this encounter Visit Diagnoses Not on filedocumented in this encounter Additional Health Concerns Assessment Noted Time PHQ-9 Depression Total Score: 0 11/24/19 23 3:58 PM EDT documented as of this encounter Care Teams Grip Relationship Specialty Start Date End Date Corin Doyle MD [address] [place] [address] PCP - General Family Medicine 07/18/18 Sam Peace, PharmD [address] [place] [phone] Pharmacist Pharmacy 03/06/25 Danay Carmen Hotbed Transfer OperatorSkein Tier 12/09/23 Danay Carmen Hotbed Transfer OperatorSkein Tier 08/27/24 documented as of this encounter
--- OUTSIDE RECORDS SUMMARY | 2025-04-11 20:03 | XMS_ITS | Encounter Summary ---
Author Organization [employer] Address [address] [facility] [address] 7t [place] [address] Care Team Providers Care Sawmilling Operator Name Role Phone Corin Doyle MD Primary Care Provider [phone] Sam Peace PharmD Unavailable [phone] Reason for Visit * Reason Onset Date Comments Med Refill 03/23/2024 Encounter Details Date Type Department Care Team (Late st Contact Info) Description 03/23/2024 Refill [facility] [address] [place] [address] Corin Doyle MD [address] [place] [address] Social History Tobacco Use Types Packs/Day Years [...] Description 05/06/2025 2:30 PM EDT Office Visit [facility] [address] [place] [address] Corin Doyle MD [address] [place] [address] 07/01/2025 3:30 PM EST Medication Management [facility] [address] [place] [address] Sam Peace, PharmD [address] [place] [address] documented as of this encounter Visit Diagnoses Not on filedocumented in this encounter Additional Health Concerns Assessment Noted Time PHQ-9 Depression Total Score: 0 11/24/19 23 3:58 PM EDT documented as of this encounter Care Teams Sawmilling Operator Relationship Specialty Start Date End Date Corin Doyle MD [address] [place] [address] PCP - General Family Medicine 07/18/18 Sam Peace, PharmD [address] [place] [phone] Pharmacist Pharmacy 03/06/25 Danay Carmen Data Management ConsultantMural Artist 12/09/23 Danay Carmen Data Management ConsultantMural Artist 08/27/24 documented as of this encounter
--- OUTSIDE RECORDS SUMMARY | 2025-04-11 20:03 | XMS_ITS | Encounter Summary ---
Author Organization [employer] Address [address] [facility] [address] 7[address] [place] [address] Care Team Providers Care Stock Receiver Name Role Phone Corin Doyle MD Primary Care Provider [phone] Sam Peace PharmD Unavailable [phone] Reason for Visit * Reason Comments Med Refill Encounter Details Date Type Department Care Team ([facility] st Contact Info) Description 11/07/2023 Refill [facility] [address] [place], [place] [phone] Eddie Guerrero MD [address] [place], [place] [phone] Social History Tobacco Use Types Packs/Day Years [...] 05/06/2025 2:30 PM EDT Office Visit [facility] [address] [place] [address] Corin Doyle MD [address] [place] [address] 07/01/2025 3:30 PM EST Medication Management [facility] [address] [place] [phone] Sam Peace, PharmD [address] [place] [phone] documented as of this encounter Visit Diagnoses Not on filedocumented in this encounter Additional Health Concerns Assessment Noted Time PHQ-9 Depression Total Score: 0 11/24/19 23 3:58 PM EDT documented as of this encounter Care Teams Stock Receiver Relationship Specialty Start Date End Date Corin Doyle MD [address] [place] [address] PCP - General Family Medicine 07/18/18 Sam Peace, PharmD [address] [place] [address] [phone] Pharmacist Pharmacy 03/06/25 Danay Carmen Rotor Casting Machine Setup OperatorVice President Of Software Development 12/09/23 Danay Carmen Rotor Casting Machine Setup OperatorVice President Of Software Development 08/27/24 documented as of this encounter
--- OUTSIDE RECORDS SUMMARY | 2025-04-11 20:03 | XMS_ITS | Encounter Summary ---
Author Organization [employer] Address [address] [facility] [address] [address] 7[address] [place] [address] Care Team Providers Care Product Consultant Name Role Phone Corin Doyle MD Primary Care Provider [phone] Sam Peace PharmD Unavailable [phone] Encounter Details Date Type Department Care Team ([facility] Contact Info) Description 04/09/2025 Results Follow-Up [facility] [address] [place] [address] Karli [place] CNM [address] [place] [address] Pap Smear Social History Tobacco Use Types Packs/Day Years [...] PM EDT Office Visit [facility] [address] [place] [address] Corin Doyle MD [address] [place] [address] 07/01/2025 3:30 PM EST Medication Management [address] [address] Sam Peace PharmD [address] [place] [address] documented as of this encounter Visit Diagnoses Not on filedocumented in this encounter Additional Health Concerns Assessment Noted Time PHQ-9 Depression Total Score: 0 08/14/19 25 3:31 PM EST documented as of this encounter Care Teams Product Consultant Relationship Specialty Start Date End Date Corin Doyle MD [address] [place] [address] PCP - General Family Medicine 07/18/18 Sam Peace, PharmD [address] [place] [phone] Pharmacist Pharmacy 03/06/25 Danay Carmen Embedded Systems EngineerBulb Farmworker 12/09/23 Danay Carmen Embedded Systems EngineerBulb Farmworker 08/27/24 documented as of this encounter
--- OUTSIDE RECORDS SUMMARY | 2025-04-11 20:03 | XMS_ITS | Encounter Summary ---
Author Organization [employer] Address [address] [facility] [address] 7t [place] [address] Care Team Providers Care Dog Pound Attendant Name Role Phone Corin Doyle MD Primary Care Provider [phone] Sam Peace PharmD Unavailable [phone] Reason for Visit * Reason Onset Date Comments Med Refill 02/19/2024 Encounter Details Date Type Department Care Team (Late st Contact Info) Description 02/19/2024 Refill [facility] 230 [place] [address] Gabriela López MD 230 [place], [place] [phone] Lumbar sprain, initial encounter Social History Tobacco [...] 05/06/2025 2:30 PM EDT Office Visit [facility] [address] [place] [address] Corin Doyle MD [address] [place] [address] 07/01/2025 3:30 PM EST Medication Management [facility] [address] [place] [address] Sam Peace, PharmD [address] [place] [address] documented as of this encounter Visit Diagnoses Diagnosis Lumbar sprain, initial encounter documented in this encounter Additional Health Concerns Assessment Noted Time PHQ-9 Depression Total Score: 0 11/24/19 23 3:58 PM EDT documented as of this encounter Care Teams Dog Pound Attendant Relationship Specialty Start Date End Date Corin Doyle MD [address] [place] [address] PCP - General Family Medicine 07/18/18 Sam Peace, PharmD [address] [place] [address] [phone] Pharmacist Pharmacy 03/06/25 Danay Carmen Tumor RegistrarForest Patrolman 12/09/23 Danay Carmen Tumor RegistrarForest Patrolman 08/27/24 documented as of this encounter
--- OUTSIDE RECORDS SUMMARY | 2025-04-11 20:04 | XMS_ITS | Encounter Summary ---
Author Organization [employer] Address [address] [place] [address] 7t [place] [address] Care Team Providers Care Cheese Cooker Name Role Phone Corin Doyle MD Primary Care Provider [phone] Sam Peace PharmD Unavailable [phone] Reason for Referral * Consultation (Routine) - Authorized Specialty Diagnoses / Procedures Referred By Contac t Referred To Contact Pharmacy Diagnoses Primary hypertension Corin Doyle MD [address] [place] [address] Phone: tel: fax: Referral ID Status Reason Start Date Expiration Date Visits Requested Visits Authorized [id number] Authorized Consult and Treat 04/01/2025 04/01/2026 6 6 Encounter Details Date Type Department Care Team (Late st Contact Info) Description 04/01/2025 Orders Only [facility] MEDICINE [address] [place] [address] [phone] Corin Doyle MD [address] [place], [place] [phone] Primary hypertension (Primary Dx) Social History Tobacco [...] Description 05/06/2025 2:30 PM EDT Office Visit [facility] [address] [place] [address] Corin Doyle MD [address] [place] [address] 07/01/2025 3:30 PM EST Medication Management [address] [address] Sam Peace, PharmD [address] [place] [address] Scheduled Referrals Name Type Priority Associated Diagnoses Orde r Schedule Referral to Pharmacy CDTM Outpatient Referral Routine Primary hypertension Ordered: 04/01/2025 documented as of this encounter Visit Diagnoses Diagnosis Primary hypertension- Primary Unspecified essential hypertension documented in this encounter Additional Health Concerns Assessment Noted Time PHQ-9 Depression Total Score: 0 08/14/19 3:31 PM EST documented as of this encounter Care Teams Cheese Cooker Relationship Specialty Start Date End Date Corin Doyle MD 230 [place] [address] PCP - General Family Medicine 07/18/18 Sam Peace, PharmD 230 [place] [address] Pharmacist Pharmacy 03/06/25 Danay Carmen Genetic CounselorGeotechnical Laboratory Technician 12/09/23 Danay Carmen Genetic CounselorGeotechnical Laboratory Technician 08/27/24 documented as of this encounter
--- OUTSIDE RECORDS SUMMARY | 2025-04-11 20:04 | XMS_ITS | Encounter Summary ---
Author Organization [employer] [facility] Address [address] [place] [address] 7 [place] [address] Care Team Providers Care Mailroom Messenger Name Role Phone Corin Doyle MD Primary Care Provider [phone] Sam Peace PharmD Unavailable [phone] Encounter Details Date Type Department Care Team (Latest Contact Info) Description 11/25/2021 Abstract [facility] CONVERSIONS Dental, Provider, DDS Social History Tobacco [...] Visit [facility] MEDICINE [address] [place] [address] Corin Doyle MD 230 [place] [address] 07/01/2025 3:30 PM EST Medication Management [facility] MEDICINE [address] [place] [address] Sam Peace, PharmD 230 [place] [address] documented as of this encounter Visit Diagnoses Not on filedocumented in this encounter Care Teams Mailroom Messenger Relationship Specialty Start Date End Date Corin Doyle MD 230 [place] [address] PCP - General Family Medicine 07/18/18 Sam Peace, PharmD 230 [place] [address] Pharmacist Pharmacy 03/06/25 Danay Carmen Mobility EngineerOptical Glass Etcher 12/09/23 Danay Carmen Mobility EngineerOptical Glass Etcher 08/27/24 documented as of this encounter
--- OUTSIDE RECORDS SUMMARY | 2025-04-11 20:04 | XMS_ITS | Encounter Summary ---
Author Organization [employer] Address [address] [facility] [address] 7t [place] [address] Care Team Providers Care Transfer Engineer Name Role Phone Corin Doyle MD Primary Care Provider [phone] Sam Peace PharmD Unavailable [phone] Encounter Details Date Type Department Care Team ([facility] st Contact Info) Description 04/01/2025 Telephone [facility] 230 [place], [place] [phone] Corin Doyle MD 230 [place] [address] Social History Tobacco Use Types Packs/Day Years [...] Description 05/06/2025 2:30 PM EDT Office Visit [address] [address] Corin Doyle MD [address] [place] [address] 07/01/2025 3:30 PM EST Medication Management [address] [address] Sam Peace, Yulissa [address] [place] [address] documented as of this encounter Visit Diagnoses Not on filedocumented in this encounter Additional Health Concerns Assessment Noted Time PHQ-9 Depression Total Score: 0 08/14/19 25 3:31 PM EST documented as of this encounter Care Teams Transfer Engineer Relationship Specialty Start Date End Date Corin Doyle MD [address] [place] [address] PCP - General Family Medicine 07/18/18 Sam Peace, PharmD [address] [place] [address] [phone] Pharmacist Pharmacy 03/06/25 Danay Carmen Batting Machine OperatorFrit Burner 12/09/23 Danay Carmen Batting Machine OperatorFrit Burner 08/27/24 documented as of this encounter
--- OUTSIDE RECORDS SUMMARY | 2025-04-11 20:04 | XMS_ITS | Encounter Summary ---
Author Organization [employer] Address 75 [facility] 7t [place] [address] Care Team Providers Care Style Advisor Name Role Phone Corin Doyle MD Primary Care Provider [phone] Sam Peace PharmD Unavailable [phone] Reason for Visit * Reason Onset Date Comments triage 10/28/2022 Encounter Details Date Type Department Care Team ([facility] st Contact Info) Description 10/28/2022 Telephone [facility] MEDICINE 230 [place] [address] Corin Doyle MD 230 [place] [address] triage Social History Tobacco Use Types Packs/Day [...] 11:47 AM EDT Triage call with Suze Student Accounts Coordinator [place] [id number] Pt reports burning with urination, bladder pressure, slight bilateral flank pain and frequency. Pt denies bad odor, fever. Pt is advised to come to [facility] to be seen today and Pt agrees [...] EDT Office Visit [facility] MED[facility]INE [address] [place] [address] Corin Doyle MD [address] [place] [address] 07/01/2025 3:30 PM EST Medication Management [facility] MED[facility]INE [address] [place] [address] Sam Peace, ConchisD [address] [place] [address] documented as of this encounter Visit Diagnoses Not on filedocumented in this encounter Care Teams Style Advisor Relationship Specialty Start Date End Date Corin Doyle MD [address] [place] [address] PCP - General Family Medicine 07/18/18 Sam Peace, PharmD [address] [place] [address] [place] [address] Pharmacist Pharmacy 03/06/25 Danay Carmen Farm HandTerrapin Fisher 12/09/23 Danay Carmen Farm HandTerrapin Fisher 08/27/24 documented as of this encounter
--- OUTSIDE RECORDS SUMMARY | 2025-04-11 20:04 | XMS_ITS | Encounter Summary ---
Author Organization [employer] Address [address] [facility] [address] 7t [place] [address] Care Team Providers Care Inside Account Representative Name Role Phone Corin Doyle MD Primary Care Provider [phone] Sam Peace PharmD Unavailable [phone] Encounter Details Date Type Department Care Team ([facility] Contact Info) Description 04/02/2025 Results Follow-Up [facility] MED[facility]INE 230 [place] [address] Corin Doyle MD 230 [place], [place] [phone] Basic Metabolic Panel, Magnesium Social History Tobacco [...] Description 05/06/2025 2:30 PM EDT Office Visit [facility] MEDICINE [address] [place] [address] Corin Doyle MD [address] [place] [address] 07/01/2025 3:30 PM EST Medication Management [address] [address] Sam Peace, Yulissa [address] [place] [address] documented as of this encounter Visit Diagnoses Not on filedocumented in this encounter Additional Health Concerns Assessment Noted Time PHQ-9 Depression Total Score: 0 08/14/19 25 3:31 PM EST documented as of this encounter Care Teams Inside Account Representative Relationship Specialty Start Date End Date Corin Doyle MD [address] [place] [address] PCP - General Family Medicine 07/18/18 Sam Peace, PharmD [address] [place] [address] [phone] Pharmacist Pharmacy 03/06/25 Danay Carmen Tunnel Kiln RepairerPattern Shop Supervisor 12/09/23 Danay Carmen Tunnel Kiln RepairerPattern Shop Supervisor 08/27/24 documented as of this encounter
--- OUTSIDE RECORDS SUMMARY | 2025-04-11 20:04 | XMS_ITS | Encounter Summary ---
Author Organization [employer] Address 75 [facility] 7t [place] [address] Care Team Providers Care Vice President Of Finance Name Role Phone Corin Doyle MD Primary Care Provider [phone] Sam Peace PharmD Unavailable [phone] Reason for Visit * Reason Comments Med Refill Encounter Details Date Type Department Care Team ([facility] st Contact Info) Description 12/14/2022 Refill [facility] MEDICINE 230 [place], [place] [phone] Corin Doyle MD 230 [place], [place] [phone] LLQ pain Social History Tobacco Use Types [...] Description 05/06/2025 2:30 PM EDT Office Visit [facility] MEDICINE [address] [place] [address] Corin Doyle MD [address] [place] [address] 07/01/2025 3:30 PM EST Medication Management [facility] MED[facility]INE [address] [place] [address] Sam Peace, PharmD [address] [place] [address] documented as of this encounter Visit Diagnoses Diagnosis LLQ pain Abdominal pain, left lower quadrant documented in this encounter Additional Health Concerns Assessment Noted Time PHQ-9 Depression Total Score: 0 11/24/19 23 3:58 PM EDT documented as of this encounter Care Teams Vice President Of Finance Relationship Specialty Start Date End Date Corin Doyle MD [address] [place] [address] PCP - General Family Medicine 07/18/18 Sam Peace, PharmD [address] [place] [address] [phone] Pharmacist Pharmacy 03/06/25 Danay Carmen Bookkeeping AssistantWorkers' Compensation Mediator 12/09/23 Danay Carmen Bookkeeping AssistantWorkers' Compensation Mediator 08/27/24 documented as of this encounter
--- OUTSIDE RECORDS SUMMARY | 2025-04-11 20:04 | XMS_ITS | Encounter Summary ---
Author Organization [employer] Address [address] [facility] [address] 7t [place] [address] Care Team Providers Care Pool Lifeguard Name Role Phone Corin Doyle MD Primary Care Provider [phone] Sam Peace PharmD Unavailable [phone] Reason for Visit * Reason Onset Date Comments Letter Request 07/05/2022 I called jodi comer the pt's request for a letter for housing. She stated that she is requesting an apartment on a first floor, or one with elevator accessibility, due to her medical conditions. Encounter Details Date Type Department Care Team ([facility] Contact Info) Description 07/05/2022 Telephone [facility] [address] [place], [place] [phone] Corin Doyle MD 230 [place] [address] Letter Request (I called regarding the pt's [...] Upcoming Encounters Date Type Department Care Team ([facility] Contact Info) Description 05/06/2025 2:30 PM EDT Office Visit [facility] MED[facility]INE [address] [place] [address] Cor[facility] [place], [place] [phone] 07/01/2025 3:30 PM EST Medication Management [facility] MED[facility]INE [address] [place] [address] Sam Peace, PharmSol [address] [place] [address] documented as of this encounter Visit Diagnoses Not on filedocumented in this encounter Care Teams Pool Lifeguard Relationship Specialty Start Date End Date Corin Doyle MD [address] [place] [address] [phone] PCP - General Family Medicine 07/18/18 Sam Peace, PharmD [address] [place] [address] [phone] Pharmacist Pharmacy 03/06/25 Danay Carmen Brine Tank Separator OperatorMiddle School French Teacher 12/09/23 Danay Carmen Brine Tank Separator OperatorMiddle School French Teacher 08/27/24 documented as of this encounter
--- OUTSIDE RECORDS SUMMARY | 2025-04-11 20:04 | XMS_ITS | Encounter Summary ---
Author Organization [employer] Address 75 [facility] 7t [place] [address] Care Team Providers Care Laundry Housekeeping Aide Name Role Phone Corin Doyle MD Primary Care Provider [phone] Sam Peace PharmD Unavailable [phone] Reason for Visit * Reason Onset Date Comments Referral 01/26/2023 Encounter Details Date Type Department Care Team ([facility] st Contact Info) Description 01/26/2023 Telephone [facility] MED[facility]INE 230 [place] [address] Corin Doyle MD 230 [place] [address] Referral Social History Tobacco Use Types Packs/Day [...] - 01/26/2023 3:24 PM EDT [facility] for therapy. States pt is having depression/anxiety. Pt is also hearing voices and seeing a man documented in this encounter Plan of Treatment Upcoming Encounters Date Type Department Care Team (Late st Contact Info) Description 05/06/2025 2:30 PM EDT Office Visit [facility] MED[facility]INE 230 [place] [address] Corin Doyle MD 230 [place] [address] 07/01/2025 3:30 PM EST Medication Management [facility]INE [address] [place] [address] Sam Peace, PharmD [address] [place] [address] documented as of this encounter Visit Diagnoses Not on filedocumented in this encounter Additional Health Concerns Assessment Noted Time PHQ-9 Depression Total Score: 0 11/24/19 23 3:58 PM EDT documented as of this encounter Care Teams Laundry Housekeeping Aide Relationship Specialty Start Date End Date Corin Doyle MD [address] [place] [address] PCP - General Family Medicine 07/18/18 Sam Peace, PharmD [address] [place] [address] Pharmacist Pharmacy 03/06/25 Danay Carmen CostumerAngle Shear Operator 12/09/23 Danay Carmen CostumerAngle Shear Operator 08/27/24 documented as of this encounter
--- OUTSIDE RECORDS SUMMARY | 2025-04-11 20:04 | XMS_ITS | Encounter Summary ---
Author Organization [employer] Address 75 [facility] 7t [place] [address] Care Team Providers Care Bindery Machine Setter/Set Up Operator Name Role Phone Corin Doyle MD Primary Care Provider Sam Peace PharmD Unavailable [phone] Reason for Visit * Reason Onset Date Comments Med Refill 03/13/2025 Encounter Details Date Type Department Care Team (Late st Contact Info) Description 03/13/2025 Refill [facility] MED[facility]INE 230 [place] [address] Corin Doyle MD 230 [place] [address] Social History Tobacco Use Types Packs/Day Years [...] 05/06/2025 2:30 PM EDT Office Visit [facility] MEDICINE [address] [place] [address] Corin Doyle MD [address] [place] [address] 07/01/2025 3:30 PM EST Medication Management [facility] MED[facility]INE [address] [place] [address] Sam Peace PharmD [address] [place] [address] documented as of this encounter Visit Diagnoses Not on filedocumented in this encounter Additional Health Concerns Assessment Noted Time PHQ-9 Depression Total Score: 0 08/14/19 25 3:31 PM EST documented as of this encounter Care Teams Bindery Machine Setter/Set Up Operator Relationship Specialty Start Date End Date Corin Doyle MD [address] [place] [address] PCP - General Family Medicine 07/18/18 Sam Peace, ConchisD [address] [place] [address], [place] [address] Pharmacist Pharmacy 03/06/25 Danay Carmen Self Sealing Fuel Tank RepairerInstrument Lens Grinder 12/09/23 Danay Carmen Self Sealing Fuel Tank RepairerInstrument Lens Grinder 08/27/24 documented as of this encounter
--- OUTSIDE RECORDS SUMMARY | 2025-04-11 20:04 | XMS_ITS | Encounter Summary ---
Author Organization [employer] Address 75 [facility] 7t [place] [address] Care Team Providers Care Thread Clipper Name Role Phone Corin Doyle MD Primary Care Provider [phone] Sam Peace PharmD Unavailable Encounter Details Date Type Department Care Team (Late Contact Info) Description 06/28/2022 Orders Only [facility] [address] [place] [address] Belgica Lanza RN Social History Tobacco Use [...] Upcoming Encounters Date Type Department Care Team ([facility] Contact Info) Description 05/06/2025 2:30 PM EDT Office Visit [facility] MEDICINE [address] [place] [address] Corin Doyle MD [address] [place] [address] [phone] 07/01/2025 3:30 PM EST Medication Management [facility] MED[facility]INE [address] [place] [address] Sam Peace, PharmD [address] [place] [address] [phone] documented as of this encounter Visit Diagnoses Not on filedocumented in this encounter Care Teams Thread Clipper Relationship Specialty Start Date End Date Corin Doyle MD 230 [place], [place] [phone] PCP - General Family Medicine 07/18/18 Sam Peace, Yulissa 230 [place] [address] Pharmacist Pharmacy 03/06/25 Danay Carmen Revenue Stamp CutterRelationship Counselor 12/09/23 Danay Carmen Revenue Stamp CutterRelationship Counselor 08/27/24 documented as of this encounter
--- OUTSIDE RECORDS SUMMARY | 2025-04-11 20:04 | XMS_ITS | Encounter Summary ---
Author Organization [employer] Address 75 [facility] 7t [place] [address] Care Team Providers Care Gang Pusher Name Role Phone Corin Doyle MD Primary Care Provider [phone] Sam Peace PharmD Unavailable Reason for Visit * Reason Comments Med Refill Encounter Details Date Type Department Care Team ([facility] st Contact Info) Description 03/19/2025 Refill [facility] MEDICINE 230 [place], [place] [phone] Corin Doyle MD 230 [place] [address] Social History Tobacco Use Types Packs/Day Years [...] Visit [facility] MEDICINE [address] [place] [address] Corin Doyle MD [address] [place] [address] 07/01/2025 3:30 PM EST Medication Management [address] [address] Sam Peace, Yulissa [address] [place] [address] documented as of this encounter Visit Diagnoses Not on filedocumented in this encounter Additional Health Concerns Assessment Noted Time PHQ-9 Depression Total Score: 0 08/14/19 25 3:31 PM EST documented as of this encounter Care Teams Gang Pusher Relationship Specialty Start Date End Date Corin Doyle MD [address] [place] [address] PCP - General Family Medicine 07/18/18 Sam Peace, ConchisD [address] [place] [address] Pharmacist Pharmacy 03/06/25 Danay Carmen Card StripperSafety Officer 12/09/23 Danay Carmen Card StripperSafety Officer 08/27/24 documented as of this encounter
--- OUTSIDE RECORDS SUMMARY | 2025-04-11 20:04 | XMS_ITS | Encounter Summary ---
Author Organization [employer] Address [address] [facility] [address] 7t [place] [address] Care Team Providers Care Acoustical Material Worker Name Role Phone Corin Doyle MD Primary Care Provider [phone] Sam Peace PharmD Unavailable [phone] Encounter Details Date Type Department Care Team ([facility] Contact Info) Description 03/01/2025 Results Follow-Up [facility] MEDICINE 230 [place] [address] Corin Doyle MD 230 [place] [address] Basic Metabolic Panel Social History Tobacco Use [...] 05/06/2025 2:30 PM EDT Office Visit [facility] MEDICINE [address] [place] [address] Corin Doyle MD [address] [place] [address] 07/01/2025 3:30 PM EST Medication Management [address] [address] Sam Peace PharmD [address] [place] [address] documented as of this encounter Visit Diagnoses Not on filedocumented in this encounter Additional Health Concerns Assessment Noted Time PHQ-9 Depression Total Score: 0 08/14/19 25 3:31 PM EST documented as of this encounter Care Teams Acoustical Material Worker Relationship Specialty Start Date End Date Corin Doyle MD [address] [place] [address] PCP - General Family Medicine 07/18/18 Sam Peace, PharmD [address] [place] [address] Pharmacist Pharmacy 03/06/25 Danay Carmen Grinder HandBlood Or Blood Bank Technician 12/09/23 Danay Carmen Grinder HandBlood Or Blood Bank Technician 08/27/24 documented as of this encounter
--- OUTSIDE RECORDS SUMMARY | 2025-04-11 20:04 | XMS_ITS | Encounter Summary ---
Author Organization [employer] Address [address] [facility] [address] 7[address] [place] [address] Care Team Providers Care Project Engineer Chemicals Name Role Phone Corin Doyle MD Primary Care Provider [phone] Sam Peace PharmD Unavailable [phone] Encounter Details Date Type Department Care Team ([facility] st Contact Info) Description 03/01/2025 Orders Only [facility] [address] [place], [place] [phone] Corin Doyle MD [address] [place] [address] Hypokalemia (Primary Dx) Social History Tobacco Use [...] 05/06/2025 2:30 PM EDT Office Visit [facility] [address] [place] [address] Corin Doyle MD [address] [place] [address] 07/01/2025 3:30 PM EST Medication Management [address] [address] Sam Peace, PharmD [address] [place] [address] documented as of this encounter Procedures Procedure Name Priority Date/Time Associated Diagnosis Comments MAGNESIUM Routine 04/01/2025 3:26 PM EDT Hypokalemia BASIC METABOLIC PANEL Routine 04/01/2025 3:26 PM EDT Hypokalemia documented in this encounter Results * Magnesium (04/01/2025 3:26 PM EDT) Magnesium 2.1 1.6 - 2.6 mg/dL [facility] Blood Venous blood specimen / Unknown 04/01/2025 3:26 PM EDT 04/01/2025 4:08 PM EDT Corin Doyle MD LAB BLOOD ORDERABLES Final Resul t Performing Organization Address [facility] Co de Phone Number [facility] [address] [place] [address] [phone] * (ABNORMAL) Basic Metabolic Panel (04/01/2025 3:26 PM EDT) Sodium 144 135 - 145 mmol/L [facility] Potassium 3.6 3.3 - 5.1 mmol/L [facility] Chloride 109(H) 96 - 108 mmol/L [facility] Carbon Dioxide 29 22 - 29 mmol/L [facility] Anion Gap 10(L) 12 - 20 [facility] Urea Nitrogen (BUN) 15 9 - 16 mg/dL [facility] Creatinine, Serum 0.81 0.5 - 1.4 mg/dL [facility] Estimated Glomerular Filt Rate >60 [facility] Comment:Chronic Kidney Disea se: Estimated GFR < 60 mL/min/1.91x9Xndgkn Kidney Disease: Estimated GFR < 15 mL/min/1.73m2 Glucose 87 60 - 115 mg/dL [facility] Calcium 8.9 8.4 - 10.2 mg/dL [facility] Blood Venous blood specimen / Unknown 04/01/2025 3:26 PM EDT 04/01/2025 4:08 PM EDT us Corin Doyle MD LAB BLOOD ORDERABLES Final Resul t Performing Organization Address City/[facility]/ZIP Co de Phone Number [facility] [address] [place] [address] [phone] documented in this encounter Visit Diagnoses Diagnosis Hypokalemia- Primary Hypopotassemia documented in this encounter Additional Health Concerns Assessment Noted Time PHQ-9 Depression Total Score: 0 08/14/19 3:31 PM EST documented as of this encounter Care Teams Project Engineer Chemicals Relationship Specialty Start Date End Date Corin Doyle MD [address] [place] [address] PCP - General Family Medicine 07/18/18 Sam Peace, PharmD [address] [place] [address] Pharmacist Pharmacy 03/06/25 Danay Carmen Community Engagement SpecialistDelivery Agent 12/09/23 Danay Carmen Community Engagement SpecialistDelivery Agent 08/27/24 documented as of this encounter
[2025-04-12 02:46] LABS: CT PCR NOT DETECTED (Not Detect.); NG PCR NOT DETECTED (Not Detect.)
== END 2025-04-11 17:39 | disposition home or self-care (01) ==
LOC: HO.HHCLNP 17:38
PROVIDERS: Visit Provider Advanced Practice Midwife
DX: Z11.3 Encounter for screening for infections with a predominantly sexual mode of transmission (principal); R35.0 Frequency of micturition; R10.2 Pelvic and perineal pain
CPT/HCPCS: 87086; 87491; 87591; 87661

== ENCOUNTER 2025-04-19 14:40 | Outpatient (REF) | payer MEDICAID, SELFPAY ==
--- OUTSIDE RECORDS SUMMARY | 2025-04-19 14:44 | XMS_ITS | Encounter Summary ---
Author Organization [employer] Address 75 [facility] 7t [place] [address] Care Team Providers Care Balance Clerk Name Role Phone Corin Doyle MD Primary Care Provider [phone] Sam Peace PharmD Unavailable [phone] Reason for Visit * Reason Onset Date Comments Med Refill 03/01/2025 Encounter Details Date Type Department Care Team (Late st Contact Info) Description 03/01/2025 Refill [facility] [address] [place] [address] Corin Doyle MD 230 [place] [address] Social History Tobacco Use Types Packs/Day Years [...] Description 05/06/2025 2:30 PM EDT Office Visit [facility] [address] [place] [address] Corin Doyle MD [address] [place] [address] 07/01/2025 3:30 PM EST Medication Management [facility] [address] [place] [address] Sam Peace PharmD [address] [place] [address] documented as of this encounter Visit Diagnoses Not on filedocumented in this encounter Additional Health Concerns Assessment Noted Time PHQ-9 Depression Total Score: 0 08/14/19 25 3:31 PM EST documented as of this encounter Care Teams Balance Clerk Relationship Specialty Start Date End Date Corin Doyle MD [address] [place] [address] PCP - General Family Medicine 07/18/18 Sam Peace, ConchisD [address] [place] [address], [place] [address] Pharmacist Pharmacy 03/06/25 Danay Carmen Device Test EngineerMangle Tender Cloth 12/09/23 Danay Carmen Device Test EngineerMangle Tender Cloth 08/27/24 documented as of this encounter
--- OUTSIDE RECORDS SUMMARY | 2025-04-19 14:44 | XMS_ITS | Encounter Summary ---
Author Organization [employer] Address [address] [facility] [address] 7t [place] [address] Care Team Providers Care Citizen Participation Specialist Name Role Phone Corin Doyle MD Primary Care Provider [phone] Sam Peace PharmD Unavailable [phone] Reason for Visit * Reason Onset Date Comments Med Refill 04/20/2024 Encounter Details Date Type Department Care Team (Late st Contact Info) Description 04/20/2024 Refill [facility] [address] [place] [address] Corin Doyle MD 230 [place] [address] Social History Tobacco Use Types Packs/Day Years [...] Description 05/06/2025 2:30 PM EDT Office Visit [facility] [address] [place] [address] Corin Doyle MD [address] [place] [address] 07/01/2025 3:30 PM EST Medication Management [facility] [address] [place] [address] Sam Peace, PharmD [address] [place] [address] documented as of this encounter Visit Diagnoses Not on filedocumented in this encounter Additional Health Concerns Assessment Noted Time PHQ-9 Depression Total Score: 0 11/24/19 23 3:58 PM EDT documented as of this encounter Care Teams Citizen Participation Specialist Relationship Specialty Start Date End Date Corin Doyle MD [address] [place] [address] PCP - General Family Medicine 07/18/18 Sam Peace, PharmD [address] [place] [address] Pharmacist Pharmacy 03/06/25 Danay Carmen Patrol ManBridge Contractor 12/09/23 Danay Carmen Patrol ManBridge Contractor 08/27/24 documented as of this encounter
--- OUTSIDE RECORDS SUMMARY | 2025-04-19 14:44 | XMS_ITS | Encounter Summary ---
Author Organization [email or web address] Address 75 [facility] 7t [place] [address] Care Team Providers Care Radiation Protection Technician Name Role Phone Corin Doyle MD Primary Care Provider [phone] Sam Peace PharmD Unavailable [phone] Reason for Visit * Reason Comments Med Change Request Encounter Details Date Type Department Care Team ([facility] st Contact Info) Description 01/08/2024 Refill [facility] 230 [place], [place] [phone] Corin Doyle MD 230 [place], [place] [phone] Social History Tobacco Use Types Packs/Day Years [...] Office Visit [facility] [address] [place] [address] Corin Doyle MD [address] [place] [address] 07/01/2025 3:30 PM EST Medication Management [facility] [address] [place] [address] Sam Peace, PharmD [address] [place] [address] documented as of this encounter Visit Diagnoses Not on filedocumented in this encounter Additional Health Concerns Assessment Noted Time PHQ-9 Depression Total Score: 0 11/24/19 23 3:58 PM EDT documented as of this encounter Care Teams Radiation Protection Technician Relationship Specialty Start Date End Date Corin Doyle MD [address] [place] [address] PCP - General Family Medicine 07/18/18 Sam Peace, PharmD [address] [place] [address] [phone] Pharmacist Pharmacy 03/06/25 Danay Carmen Manager HotelEr Registrar 12/09/23 Danay Carmen Manager HotelEr Registrar 08/27/24 documented as of this encounter
--- OUTSIDE RECORDS SUMMARY | 2025-04-19 14:44 | XMS_ITS | Encounter Summary ---
Author Organization [employer] Address 75 [facility] [address] 7t [place] [address] Care Team Providers Care Final Inspector Balance Wheel Name Role Phone Corin Doyle MD Primary Care Provider [phone] Sam Peace PharmD Unavailable [phone] Reason for Visit * Reason Onset Date Comments Nurse Triage 05/25/2024 Encounter Details Date Type Department Care Team ([facility] st Contact Info) Description 05/25/2024 Telephone [facility]INE [address] [place] [address] Corin Doyle MD [address] [place] [address] Nurse Triage Social History Tobacco Use Types [...] theER now. RN advises pt to call [facility] back when she is discharged in order [...] 05/06/2025 2:30 PM EDT Office Visit [facility] [address] [place] [address] [phone] Corin Doyle MD [address] [place] [address] 07/01/2025 3:30 PM EST Medication Management [facility] [address] [place] [address] Sam Peace, PharmD [address] [place] [address] documented as of this encounter Visit Diagnoses Not on filedocumented in this encounter Additional Health Concerns Assessment Noted Time PHQ-9 Depression Total Score: 0 11/24/19 23 3:58 PM EDT documented as of this encounter Care Teams Final Inspector Balance Wheel Relationship Specialty Start Date End Date Corin Doyle MD [address] [place] [address] PCP - General Family Medicine 07/18/18 Sam Peace, PharmD [address] [place] [address] Pharmacist Pharmacy 03/06/25 Danay Carmen Baling Press OperatorSprinkling System Installer 12/09/23 Danay Carmen Baling Press OperatorSprinkling System Installer 08/27/24 documented as of this encounter
--- OUTSIDE RECORDS SUMMARY | 2025-04-19 14:44 | XMS_ITS | Encounter Summary ---
Author Organization [employer] Address [address] [facility] [address] 7t [place] [address] Care Team Providers Care Office Services Coordinator Name Role Phone Corin Doyle MD Primary Care Provider [phone] Sam Peace PharmD Unavailable [phone] Encounter Details Date Type Department Care Team ([facility] st Contact Info) Description 05/04/2024 Orders Only [facility] [address] [place], [place] [phone] Croin Doyle MD [address] [place] [address] Primary hypertension (Primary Dx); Acquired hypothyroidism; Hypokalemia; [...] Description 05/06/2025 2:30 PM EDT Office Visit [address] [address] Corin Doyle MD [address] [place] [address] 07/01/2025 3:30 PM EST Medication Management [address] [address] Sam Peace, PharmD [address] [place] [address] documented as of this encounter Procedures Procedure [...] 4:05 PM EST) Creatinine, Urine 312.90 mg/dL [facility] Microalbumin Urine 15.0 mg/L [facility] Microalbum Creatinine Ratio Ur 4.7 <30 ug/mg cr [facility] Comment:Albumin/Creatinine R atio Reference Ranges: Normal: < 30 ug/mg creatinine Microalbuminuria: 30 - 300 ug/mg creatinineClinical Albuminuria: > 300 ug/mg creatinine Urine 08/14/2024 4:05 PM EST 08/14/2024 5:43 PM EST us Corin Doyle MD LAB URINE ORDERABLES Final Resul t [facility] [address] [place] [phone] * Hemoglobin A1c (08/14/2024 4:05 PM EST) Hemoglobin A1c 5.1 <6.0 % [facility] Comment:Hemoglobin A1C Refer ence Range Adults: 4.8 - 6.0 % Non diabetic: < 6.0 % Goal: < 7.0 %Additional Action Suggested: > 8.0 %Note: Hemoglobin A1c results are invalid for patients with abnormal amounts of HbF. Blood transfusions may impact the HbA1c concentration in the patient sample. Estimated Average Glucose 100 mg/dL [facility] Comment:eAG = Estimated ave rage glucose which is %A1C expressed asaverage glucose, using the formula of the D0X-DoilijgGontyfr Glucose study (ADAG), Diabetes Care, Vol.31,#8,Feb. 2007 Blood Venous blood specimen / Unknown 08/14/2024 4:05 PM EST 08/14/2024 5:33 PM EST Corin Doyle MD LAB BLOOD ORDERABLES Final Resul t Performing Organization Address [facility] Co de Phone Number [facility] [address] [place] [phone] * Lipid Panel with Reflex to Direct LDL (08/14/2024 4:05 PM EST) Triglycerides 114 <150 mg/dL [facility] Comment:Desirable Triglyceri de: less than 150 mg/dLBorderline High Triglyceride 150-199 mg/dLHigh Triglyceride: 200-499 mg/dLVery High Triglyceride: greater than or equal to 5OO mg/dL Cholesterol 146 <200 mg/dL [facility] Comment:Desirable Cholestero l: less than 200 mg/dLBorderline High Cholesterol: 200-239 mg/dLHigh Cholesterol: greater than 239 mg/dL LDL Cholesterol Calculated 83 <100 mg/dL [facility] Comment:Desirable LDL: less than 100 mg/dLNear Optimal/Above Optimal LDL: 110- 129 mg/dLBorderline High LDL: 130-159 mg/dLHigh LDL: 160-189 mg/dLVery High LDL: greater than or equal to 190 mg/dL HDL Cholesterol 41 >40 mg/dL [facility] Comment:Desirable HDL: great er than 40 mg/dL Note: This HDL assay may give artificially low results in patients with liver disease. Blood 08/14/2024 4:05 PM EST 08/14/2024 5:33 PM EST Corin Doyle MD LAB BLOOD ORDERABLES Final Resul t Performing Organization Address [facility] Co de Phone Number [facility] [address] [place] [phone] * Magnesium (08/14/2024 4:05 PM EST) Magnesium 2.2 1.6 - 2.6 mg/dL [facility] Blood Venous blood specimen / Unknown 08/14/2024 4:05 PM EST 08/14/2024 5:33 PM EST Corin Doyle MD LAB BLOOD ORDERABLES Final Resul t Performing Organization Address [facility] Co de Phone Number [facility] [address] [place] [phone] * Uric acid (08/14/2024 4:05 PM EST) Pathologist [facility] Uric Acid 4.5 2.4 - 5.7 mg/dL [facility] Blood Venous blood specimen / Unknown 08/14/2024 4:05 PM EST 08/14/2024 5:33 PM EST Corin Doyle MD LAB BLOOD ORDERABLES Final Resul t Performing Organization Address [facility] de Phone Number [facility] [address] [place] [phone] * TSH with Reflex to Free T4 (08/14/2024 4:05 PM EST) Pathologist [facility] TSH reflex Free T4 3.48 0.32 - 4.0 uIU/mL [facility] Blood 08/14/2024 4:05 PM EST 08/14/2024 5:33 PM EST Corin Doyle MD LAB BLOOD ORDERABLES Final Resul t Performing Organization Address [facility] Phone Number [facility] [address] [place] [phone] * (ABNORMAL) Comprehensive Metabolic Panel (08/14/2024 4:05 PM EST) Pathologist [facility] Sodium 143 135 - 145 mmol/L [facility] Potassium 3.1(L) 3.3 - 5.1 mmol/L [facility] Chloride 106 96 - 108 mmol/L [facility] Carbon Dioxide 30(H) 22 - 29 mmol/L [facility] Anion Gap 10(L) 12 - 20 [facility] Urea Nitrogen (BUN) 14 9 - 16 mg/dL [facility] Creatinine, Serum 0.70 0.5 - 1.4 mg/dL [facility] Estimated Glomerular Filt Rate >60 [facility] Comment:Chronic Kidney Disea se: Estimated GFR < 60 mL/min/1.81d0Icvnal Kidney Disease: Estimated GFR < 15 mL/min/1.73m2 Glucose 72 60 - 115 mg/dL [facility] Calcium 9.2 8.4 - 10.2 mg/dL [facility] Bilirubin, Total 0.2 0.0 - 1.0 mg/dL [facility] Aspartate Amino Transferase 21 5 - 31 U/L [facility] Alanine Aminotransferase 24 0 - 31 U/L [facility] Total Protein 7.7 6.5 - 8.0 g/dL [facility] Albumin Level 4.1 3.5 - 5.0 g/dL [facility] Alkaline Phosphatase 109 39 - 117 U/L [facility] Blood Venous blood specimen / Unknown 08/14/2024 4:05 PM EST 08/14/2024 5:33 PM EST us Corin Doyle MD LAB BLOOD ORDERABLES Final Resul t [facility] [address] [place] [address] [phone] documented in this encounter Visit Diagnoses [...] documented as of this encounter Care Teams Office Services Coordinator Relationship Specialty Start Date End Date Corin Doyle MD [address] [place] [address] PCP - General Family Medicine 07/18/18 Sam Peace, PharmD [address] [place] [address] Pharmacist Pharmacy 03/06/25 Danay Carmen Content EngineerMetrology Technician 12/09/23 Danay Carmen Content EngineerMetrology Technician 08/27/24 documented as of this encounter
--- OUTSIDE RECORDS SUMMARY | 2025-04-19 14:44 | XMS_ITS | Encounter Summary ---
Author Organization [employer] Address [address] [facility] [address] 7t [place] [address] Care Team Providers Care Product Advisor Name Role Phone Corin Doyle MD Primary Care Provider Sam Peace PharmD Unavailable [phone] Reason for Visit * Reason Onset Date Comments Med Refill 03/29/2024 Encounter Details Date Type Department Care Team (Late st Contact Info) Description 03/29/2024 Refill [facility] [address] [place] [address] Corin Doyle MD 230 [place] [address] Social History Tobacco Use Types Packs/Day Years [...] EDT Office Visit [facility] [address] [place] [address] Corin Doyle MD [address] [place] [address] 07/01/2025 3:30 PM EST Medication Management [facility] [address] [place] [address] Sam Peace, PharmD [address] [place] [address] documented as of this encounter Visit Diagnoses Not on filedocumented in this encounter Additional Health Concerns Assessment Noted Time PHQ-9 Depression Total Score: 0 11/24/19 23 3:58 PM EDT documented as of this encounter Care Teams Product Advisor Relationship Specialty Start Date End Date Corin Doyle MD [address] [place] [address] PCP - General Family Medicine 07/18/18 Sam Peace, PharmD [address] [place] [phone] Pharmacist Pharmacy 03/06/25 Danay Carmen Vp Organizational DevelopmentPower Transmission Engineer 12/09/23 Danay Carmen Vp Organizational DevelopmentPower Transmission Engineer 08/27/24 documented as of this encounter
--- OUTSIDE RECORDS SUMMARY | 2025-04-19 14:44 | XMS_ITS | Encounter Summary ---
Author Organization [employer] Address [address] [facility] [address] 7t [place] [address] Care Team Providers Care Cotton Picking Machine Operator Name Role Phone Corin Doyle MD Primary Care Provider [phone] Sam Peace PharmD Unavailable [phone] Reason for Visit * Reason Onset Date Comments Med Refill 12/13/2023 Encounter Details Date Type Department Care Team (Late st Contact Info) Description 12/13/[address] [facility] [address] [place] [address] Corin Doyle MD [address] [place] [address] Social History Tobacco Use Types Packs/Day Years [...] 05/06/2025 2:30 PM EDT Office Visit [facility] [address] [place] [address] Corin Doyle MD [address] [place] [address] 07/01/2025 3:30 PM EST Medication Management [facility] [address] [place] [address] Sam Peace, PharmD [address] [place] [address] documented as of this encounter Visit Diagnoses Not on filedocumented in this encounter Additional Health Concerns Assessment Noted Time PHQ-9 Depression Total Score: 0 11/24/19 23 3:58 PM EDT documented as of this encounter Care Teams Cotton Picking Machine Operator Relationship Specialty Start Date End Date Corin Doyle MD [address] [place] [address] PCP - General Family Medicine 07/18/18 Sam Peace, PharmD [address] [place] [address] Pharmacist Pharmacy 03/06/25 Danay Carmen Spinal SurgeonLoan Representative 12/09/23 Danay Carmen Spinal SurgeonLoan Representative 08/27/24 documented as of this encounter
--- OUTSIDE RECORDS SUMMARY | 2025-04-19 14:44 | XMS_ITS | Encounter Summary ---
Author Organization [employer] Address [address] [facility] [address] 7[address] [place] [address] Care Team Providers Care Keymodule Assembly Supervisor Name Role Phone Corin Doyle MD Primary Care Provider [phone] Sam Peace PharmD Unavailable [phone] Reason for Visit * Reason Onset Date Comments Med Refill 12/03/2024 Encounter Details Date Type Department Care Team (Late st Contact Info) Description 12/03/[address] [facility]INE [address] [place] [address] Eddie Guerrero MD [address] [place] [address] Moderate persistent asthma with acute exacerbation Social [...] [facility] MEDICINE [address] [place] [address] Corin Doyle MD [address] [place] [address] 07/01/2025 3:30 PM EST Medication Management [facility]INE [address] [place] [address] Sam Peace PharmD [address] [place] [phone] documented as of this encounter Visit Diagnoses Diagnosis Moderate persistent asthma with acute exacerbation documented in this encounter Additional Health Concerns Assessment Noted Time PHQ-9 Depression Total Score: 0 08/14/19 25 3:31 PM EST documented as of this encounter Care Teams Keymodule Assembly Supervisor Relationship Specialty Start Date End Date Corin Doyle MD [address] [place] [address] PCP - General Family Medicine 07/18/18 Sam Peace, ConchisD [address] [place] [address] Pharmacist Pharmacy 03/06/25 Danay Carmen Oil Burner Servicer And InstallerPropeller Driven Airplane Mechanic 12/09/23 Danay Carmen Oil Burner Servicer And InstallerPropeller Driven Airplane Mechanic 08/27/24 documented as of this encounter
--- OUTSIDE RECORDS SUMMARY | 2025-04-19 14:44 | XMS_ITS | Encounter Summary ---
Author Organization [employer] Address [address] 7t [place] [address] Care Team Providers Care Assistance Specialist Name Role Phone Corin Doyle MD Primary Care Provider [phone] Sam Peace PharmD Unavailable [phone] Reason for Visit * Reason Onset Date Comments Med Refill 02/19/2024 Encounter Details Date Type Department Care Team (Late st Contact Info) Description 02/19/2024 Refill [facility] [address] [place] [address] Gabriela López MD 230 [place], [place] [phone] Lumbar sprain, initial encounter Social History Tobacco [...] Description 05/06/2025 2:30 PM EDT Office Visit [facility] [address] [place] [address] Corin Doyle MD [address] [place] [address] 07/01/2025 3:30 PM EST Medication Management [facility] [address] [place] [address] Sam Peace, PharmD [address] [place] [address] 18[address] documented as of this encounter Visit Diagnoses Diagnosis Lumbar sprain, initial encounter documented in this encounter Additional Health Concerns Assessment Noted Time PHQ-9 Depression Total Score: 0 11/24/19 23 3:58 PM EDT documented as of this encounter Care Teams Assistance Specialist Relationship Specialty Start Date End Date Corin Doyle MD [address] [place] [address] 17171 PCP - General Family Medicine 07/18/18 Sam Peace, PharmD [address] [place] [address] [phone] Pharmacist Pharmacy 03/06/25 Danay Carmen Clearance DiverWard Secretary 12/09/23 Danay Carmen Clearance DiverWard Secretary 08/27/24 documented as of this encounter
--- OUTSIDE RECORDS SUMMARY | 2025-04-19 14:44 | XMS_ITS | Encounter Summary ---
Author Organization [employer] Address [address] [facility] [address] 7t [place] [address] Care Team Providers Care Research Leader Name Role Phone Corin Doyle MD Primary Care Provider [phone] Sam Peace PharmD Unavailable [phone] Reason for Visit * Reason Onset Date Comments Med Refill 01/25/2024 Encounter Details Date Type Department Care Team (Late st Contact Info) Description 01/25/2024 Refill [facility] 230 [place] [address] Corin Doyle MD 230 [place] [address] Social History Tobacco Use Types Packs/Day Years [...] Description 05/06/2025 2:30 PM EDT Office Visit [facility] [address] [place] [address] Corin Doyle MD [address] [place] [address] 818[address] 07/01/2025 3:30 PM EST Medication Management [facility] [address] [place] [address] Sam Peace, PharmD [address] [place] [address] 396[address] documented as of this encounter Visit Diagnoses Not on filedocumented in this encounter Additional Health Concerns Assessment Noted Time PHQ-9 Depression Total Score: 0 11/24/19 23 3:58 PM EDT documented as of this encounter Care Teams Research Leader Relationship Specialty Start Date End Date Corin Doyle MD [address] [place] [address] 45092 PCP - General Family Medicine 07/18/18 Sam Peace, PharmD [address] [place] [address] 46450 Pharmacist Pharmacy 03/06/25 Danay Carmen Oil Burner InstallerAdjunct Teacher 12/09/23 Danay Carmen Oil Burner InstallerAdjunct Teacher 08/27/24 documented as of this encounter
--- OUTSIDE RECORDS SUMMARY | 2025-04-19 14:44 | XMS_ITS | Encounter Summary ---
Author Organization [employer] Address [address] 7t [place] [address] Care Team Providers Care Bench Worker Name Role Phone Corin Doyle MD Primary Care Provider [phone] Sam Peace PharmD Unavailable [phone] Reason for Visit * Reason Onset Date Comments Med Refill 01/25/2024 Encounter Details Date Type Department Care Team (Late st Contact Info) Description 01/25/2024 Refill [facility] 230 [place] [address] Corin Doyle MD 230 [place] [address] Social History Tobacco Use Types Packs/Day Years [...] EDT Office Visit [facility] [address] [place] [address] Corin Doyle MD [address] [place] [address] 85[address] 07/01/2025 3:30 PM EST Medication Management [facility] [address] [place] [address] Sam Peace, PharmD [address] [place] [address] 32072 documented as of this encounter Visit Diagnoses Not on filedocumented in this encounter Additional Health Concerns Assessment Noted Time PHQ-9 Depression Total Score: 0 11/24/19 23 3:58 PM EDT documented as of this encounter Care Teams Bench Worker Relationship Specialty Start Date End Date Corin Doyle MD [address] [place] [address]19 PCP - General Family Medicine 07/18/18 Sam Peace, PharmD [address] [place] [address] [phone] Pharmacist Pharmacy 03/06/25 Danay Carmen Supercalender Operator HelperManagement Associate 12/09/23 Danay Carmen Supercalender Operator HelperManagement Associate 08/27/24 documented as of this encounter
--- OUTSIDE RECORDS SUMMARY | 2025-04-19 14:44 | XMS_ITS | Encounter Summary ---
Author Organization [employer] Address [address] [facility] [address] 7t [place] [address] Care Team Providers Care Plastic Press Molder Name Role Phone Corin Doyle MD Primary Care Provider [phone] Sam Peace PharmD Unavailable [phone] Reason for Visit * Reason Onset Date Comments Med Refill 03/23/2024 Encounter Details Date Type Department Care Team (Late st Contact Info) Description 03/23/2024 Refill [facility] MED[facility]INE 230 [place] [address] Corin Doyle MD 230 [place] [address] Social History Tobacco Use Types Packs/Day Years [...] Description 05/06/2025 2:30 PM EDT Office Visit [facility] MED[facility]INE [address] [place] [address] Corin Doyle MD [address] [place] [address] 07/01/2025 3:30 PM EST Medication Management [facility]INE [address] [place] [address] 79[address] Sam Peace, PharmD [address] [place] [address] 39330 documented as of this encounter Visit Diagnoses Not on filedocumented in this encounter Additional Health Concerns Assessment Noted Time PHQ-9 Depression Total Score: 0 11/24/19 23 3:58 PM EDT documented as of this encounter Care Teams Plastic Press Molder Relationship Specialty Start Date End Date Corin Doyle MD [address] [place] [address] 18[address] PCP - General Family Medicine 07/18/18 Sam Peace, PharmD [address] [place] [address] 46994 Pharmacist Pharmacy 03/06/25 Danay Carmen Old Coin DealerCooperative Education Director 12/09/23 Danay Carmen Old Coin DealerCooperative Education Director 08/27/24 documented as of this encounter
--- OUTSIDE RECORDS SUMMARY | 2025-04-19 14:44 | XMS_ITS | Encounter Summary ---
Author Organization [employer] Address [address] [facility] 7t [place] [address] Care Team Providers Care Lead Java Software Engineer Name Role Phone Corin Doyle MD Primary Care Provider [phone] Sam Peace PharmD Unavailable [phone] Reason for Visit * Reason Onset Date Comments Med Refill 01/30/2025 Encounter Details Date Type Department Care Team (Late st Contact Info) Description 01/30/[address] [facility] 230 [place] [address] Corin Doyle MD 230 [place] [address] Social History Tobacco Use Types Packs/Day Years [...] 05/06/2025 2:30 PM EDT Office Visit [facility] [address] [place] [address] Corin Doyle MD [address] [place] [address] 07/01/2025 3:30 PM EST Medication Management [facility] [address] [place] [address] Sam Peace PharmD [address] [place] [address] 7[address] documented as of this encounter Visit Diagnoses Not on filedocumented in this encounter Additional Health Concerns Assessment Noted Time PHQ-9 Depression Total Score: 0 08/14/19 25 3:31 PM EST documented as of this encounter Care Teams Lead Java Software Engineer Relationship Specialty Start Date End Date Corin Doyle MD [address] [place] [address] 18962 PCP - General Family Medicine 07/18/18 Sam Peace, ConchisD [address] [place] [address], [place] [address] Pharmacist Pharmacy 03/06/25 Danay Carmen Mechanical Facilities TechnicianStriping Machine Operator 12/09/23 Danay Carmen Mechanical Facilities TechnicianStriping Machine Operator 08/27/24 documented as of this encounter
--- OUTSIDE RECORDS SUMMARY | 2025-04-19 14:44 | XMS_ITS | Encounter Summary ---
Author Organization [employer] Address [address] [facility] [address] 7t [place] [address] Care Team Providers Care Inset Cutter Name Role Phone Corin Doyle MD Primary Care Provider [phone] Sam Peace PharmD Unavailable [phone] Encounter Details Date Type Department Care Team ([facility] st Contact Info) Description 01/01/2025 Orders Only [facility] MED[facility]INE 230 [place], [place] [phone] Corin Doyle MD 230 [place] [address] Social History Tobacco Use Types Packs/Day Years [...] Description 05/06/2025 2:30 PM EDT Office Visit [facility] [address] [place] [address] Corin Doyle MD [address] [place] [address] 07/01/2025 3:30 PM EST Medication Management [address] [address] Sam Peace, Yulissa [address] [place] [address] 58[address] documented as of this encounter Visit Diagnoses Not on filedocumented in this encounter Additional Health Concerns Assessment Noted Time PHQ-9 Depression Total Score: 0 08/14/19 25 3:31 PM EST documented as of this encounter Care Teams Inset Cutter Relationship Specialty Start Date End Date Corin Doyle MD [address] [place] [address] 8[address]72 PCP - General Family Medicine 07/18/18 Sam Peace, PharmD [address] [place] [address] [phone] Pharmacist Pharmacy 03/06/25 Danay Carmen Embedded Software ArchitectWedding Planning Internship 12/09/23 Danay Carmen Embedded Software ArchitectWedding Planning Internship 08/27/24 documented as of this encounter
--- OUTSIDE RECORDS SUMMARY | 2025-04-19 14:44 | XMS_ITS | Encounter Summary ---
Author Organization [employer] Address [address] [facility] [address] 7t [place] [address] Care Team Providers Care Roll Line Operator Name Role Phone Corin Doyle MD Primary Care Provider [phone] Sam Peace PharmD Unavailable [phone] Reason for Visit * Reason Onset Date Comments Med Refill 04/02/2024 Encounter Details Date Type Department Care Team (Late st Contact Info) Description 04/02/2024 Refill [facility] 230 [place] [address] Corin Doyle MD 230 [place] [address] Social History Tobacco Use Types Packs/Day Years [...] EDT Office Visit [facility] [address] [place] [address] Corin Doyle MD [address] [place] [address] 07/01/2025 3:30 PM EST Medication Management [facility] [address] [place] [address] Sam Peace, PharmD [address] [place] [address] 03264 documented as of this encounter Visit Diagnoses Not on filedocumented in this encounter Additional Health Concerns Assessment Noted Time PHQ-9 Depression Total Score: 0 11/24/19 23 3:58 PM EDT documented as of this encounter Care Teams Roll Line Operator Relationship Specialty Start Date End Date Corin Doyle MD [address] [place] [address]40 PCP - General Family Medicine 07/18/18 Sam Peace, PharmD [address] [place] [address] 54492 Pharmacist Pharmacy 03/06/25 Danay Carmen Contingents SupervisorHorticultural Nursery Assistant 12/09/23 Danay Carmen Contingents SupervisorHorticultural Nursery Assistant 08/27/24 documented as of this encounter
--- OUTSIDE RECORDS SUMMARY | 2025-04-19 14:44 | XMS_ITS | Encounter Summary ---
Author Organization [employer] Address [address] [facility] [address] 7t [place] [address] Care Team Providers Care Department Editor Name Role Phone Corin Doyle MD Primary Care Provider [phone] Sam Peace PharmD Unavailable [phone] Encounter Details Date Type Department Care Team ([facility] st Contact Info) Description 08/17/2024 Orders Only [facility] MED[facility]INE 230 [place], [place] [phone] Corin Doyle MD 230 [place] [address] Social History Tobacco Use Types Packs/Day Years [...] Description 05/06/2025 2:30 PM EDT Office Visit [facility] MED[facility] [address] [place] [address] Corin Doyle MD [address] [place] [address] 8[address] 07/01/2025 3:30 PM EST Medication Management [address] [address] Sam Peace, Yulissa [address] [place] [address] 02158 documented as of this encounter Visit Diagnoses Not on filedocumented in this encounter Additional Health Concerns Assessment Noted Time PHQ-9 Depression Total Score: 0 08/14/19 25 3:31 PM EST documented as of this encounter Care Teams Department Editor Relationship Specialty Start Date End Date Corin Doyle MD [address] [place] [address]70 PCP - General Family Medicine 07/18/18 Sam Peace, PharmD [address] [place] [address] [phone] Pharmacist Pharmacy 03/06/25 Danay Carmen Grape PickerDry Starch Supervisor 12/09/23 Danay Carmen Grape PickerDry Starch Supervisor 08/27/24 documented as of this encounter
--- OUTSIDE RECORDS SUMMARY | 2025-04-19 14:45 | XMS_ITS | Encounter Summary ---
Author Organization [employer] Address [address] [facility] [address] [facility] [address] 7t [place] [address] Care Team Providers Care Clinic Manager Name Role Phone Corin Doyle MD Primary Care Provider [phone] Sam Peace PharmD Unavailable Reason for Visit * Reason Onset Date Comments Referral 10/18/2023 Encounter Details Date Type Department Care Team ([facility] st Contact Info) Description 10/18/2023 Telephone [facility] 230 [place] [address] Corin Doyle MD 230 [place] [address] Referral Social History Tobacco Use Types Packs/Day [...] - 10/18/2023 3:42 PM EDT Tc from [facility] with [facility] calling in regards referral for cardiology, stated pt discussed referral on last appt with PCP on 08/08 and the referral is to control high blood pressure. documented in this encounter Plan of Treatment Upcoming Encounters Date Type Department Care Team (Late st Contact Info) Description 05/06/2025 2:30 PM EDT Office Visit [facility] [address] [place] [address] 14708 Corin Doyle MD [address] [place] [address] 94757 07/01/2025 3:30 PM EST Medication Management [facility] [address] [place] [address] 6[address] Sam Peace, PharmD 230 [place] [address] documented as of this encounter Visit Diagnoses Not on filedocumented in this encounter Additional Health Concerns Assessment Noted Time PHQ-9 Depression Total Score: 0 11/24/19 23 3:58 PM EDT documented as of this encounter Care Teams Clinic Manager Relationship Specialty Start Date End Date Corin Doyle MD [address] [place] [address] 08500 PCP - General Family Medicine 07/18/18 Sma Peace, PharmD [address] [place] [address] 98364 Pharmacist Pharmacy 03/06/25 Danay Carmen Vaccine Key Customer LeaderService Promoter Salesperson 12/09/23 Danay Carmen Vaccine Key Customer LeaderService Promoter Salesperson 08/27/24 documented as of this encounter
--- OUTSIDE RECORDS SUMMARY | 2025-04-19 14:45 | XMS_ITS | Encounter Summary ---
Author Organization [employer] Address [address] [facility] 7t [place] [address] Care Team Providers Care Merchandise Buyer Name Role Phone Corin Doyle MD Primary Care Provider [phone] Sam Peace PharmD Unavailable [phone] Encounter Details Date Type Department Care Team ([facility] Contact Info) Description 03/01/2025 Results Follow-Up [facility] MEDICINE 230 [place] [address] Corin Doyle MD 230 [place] [address] Basic Metabolic Panel Social History Tobacco Use [...] 2:30 PM EDT Office Visit [facility] MEDICINE [address] [place] [address] Corin Doyle MD [address] [place] [address] 7[address] 07/01/2025 3:30 PM EST Medication Management [address] [address] Sam Peace PharmD [address] [place] [address] 58652 documented as of this encounter Visit Diagnoses Not on filedocumented in this encounter Additional Health Concerns Assessment Noted Time PHQ-9 Depression Total Score: 0 08/14/19 25 3:31 PM EST documented as of this encounter Care Teams Merchandise Buyer Relationship Specialty Start Date End Date Corin Doyle MD [address] [place] [address] 34786 PCP - General Family Medicine 07/18/18 Sam Peace, PharmD [address] [place] [address] [phone] Pharmacist Pharmacy 03/06/25 Danay Carmen Senior Mechanical Project EngineerUrban Planner 12/09/23 Danay Carmen Senior Mechanical Project EngineerUrban Planner 08/27/24 documented as of this encounter
--- OUTSIDE RECORDS SUMMARY | 2025-04-19 14:45 | XMS_ITS | Encounter Summary ---
Author Organization [employer] Address [address] [facility] [address] 7t [place] [address] Care Team Providers Care Principal Consultant Name Role Phone Corin Doyle MD Primary Care Provider [phone] Sam Peace PharmD Unavailable [phone] Encounter Details Date Type Department Care Team ([facility] Contact Info) Description 04/02/2025 Results Follow-Up [facility] MED[facility]INE 230 [place] [address] Corin Doyle MD 230 [place], [place] [phone] Basic Metabolic Panel, Magnesium Social History Tobacco [...] Description 05/06/2025 2:30 PM EDT Office Visit [facility] MEDICINE [address] [place] [address] Corin Doyle MD [address] [place] [address] 07/01/2025 3:30 PM EST Medication Management [address] [address] Sam Peace, Yulissa [address] [place] [address] 14[address] documented as of this encounter Visit Diagnoses Not on filedocumented in this encounter Additional Health Concerns Assessment Noted Time PHQ-9 Depression Total Score: 0 08/14/19 25 3:31 PM EST documented as of this encounter Care Teams Principal Consultant Relationship Specialty Start Date End Date Corin Doyle MD [address] [place] [address] 29736 PCP - General Family Medicine 07/18/18 Sam Peace, PharmD [address] [place] [address] [phone] Pharmacist Pharmacy 03/06/25 Danay Carmen Auditor/QualityDry Kiln Loader 12/09/23 Danay Carmen Auditor/QualityDry Kiln Loader 08/27/24 documented as of this encounter
--- OUTSIDE RECORDS SUMMARY | 2025-04-19 14:45 | XMS_ITS | Encounter Summary ---
Author Organization [employer] Address [address] [facility] [address] 7t [place] [address] Care Team Providers Care Senior Executive Assistant Name Role Phone Corin Doyle MD Primary Care Provider [phone] Sam Peace PharmD Unavailable [phone] Reason for Visit * Reason Onset Date Comments Med Refill 11/02/2023 Encounter Details Date Type Department Care Team (Late st Contact Info) Description 11/02/2023 Refill [facility] [address] [place] [address] Corin Doyle MD 230 [place] [address] Social History Tobacco Use Types Packs/Day Years [...] instructions back to me. Also sent on Poster[employer] so pt has them written out since she is active on [email or web address] scheduled for 11/15 with [facility] for blood pressure check. Pt verbalized [...] 2:30 PM EDT Office Visit [facility]ICINE [address] [place] [address] Corin Doyle MD [address] [place] [address] [phone] 07/01/2025 3:30 PM EST Medication Management [facility] [address] [place], [place] [phone] Sam Peace, PharmD [address] [place] [address] [phone] documented as of this encounter Visit Diagnoses Not on filedocumented in this encounter Additional Health Concerns Assessment Noted Time PHQ-9 Depression Total Score: 0 11/24/19 23 3:58 PM EDT documented as of this encounter Care Teams Senior Executive Assistant Relationship Specialty Start Date End Date Corin Doyle MD [address] [place] [address] [phone] PCP - General Family Medicine 07/18/18 Sam Peace, PharmD [address] [place] [address] [phone] Pharmacist Pharmacy 03/06/25 Danay Carmen Outdoor Emergency Care TechnicianSoftware Applications Architect 12/09/23 Danay Carmen Outdoor Emergency Care TechnicianSoftware Applications Architect 08/27/24 documented as of this encounter
--- OUTSIDE RECORDS SUMMARY | 2025-04-19 14:45 | XMS_ITS | Encounter Summary ---
Author Organization [employer] Address [address] [facility] [address] 7t [place] [address] Care Team Providers Care Account Strategist Name Role Phone Corin Doyle MD Primary Care Provider Sam Peace PharmD Unavailable Encounter Details Date Type Department Care Team ([facility] Contact Info) Description 04/09/2025 Results Follow-Up [facility] MEDICINE 230 [place] [address] Karli Wells CNM [address] [place] [address] Pap Smear Social History Tobacco Use Types [...] Description 05/06/2025 2:30 PM EDT Office Visit [facility] MEDICINE [address] [place] [address] Corin Doyle MD [address] [place] [address] 07/01/2025 3:30 PM EST Medication Management [address] [address] Sam Peace PharmD [address] [place] [address] 69[address] documented as of this encounter Visit Diagnoses Not on filedocumented in this encounter Additional Health Concerns Assessment Noted Time PHQ-9 Depression Total Score: 0 08/14/19 25 3:31 PM EST documented as of this encounter Care Teams Account Strategist Relationship Specialty Start Date End Date Corin Doyle MD [address] [place] [address] PCP - General Family Medicine 07/18/18 Sam Peace, PharmD [address] [place] [address] [phone] Pharmacist Pharmacy 03/06/25 Danay Carmen Lacquer MakerHeel Builder 12/09/23 Danay Carmen Lacquer MakerHeel Builder 08/27/24 documented as of this encounter
--- OUTSIDE RECORDS SUMMARY | 2025-04-19 14:45 | XMS_ITS | Encounter Summary ---
Author Organization [employer] Address [address] [facility] [address] [place] [address] Care Team Providers Care Residential Collections Name Role Phone Corin Doyle MD Primary Care Provider [phone] Sam Peace PharmD Unavailable [phone] Reason for Visit * Reason Onset Date Comments Letter Request 07/05/2022 I called jodi comer the pt's request for a letter for housing. She stated that she is requesting an apartment on a first floor, or one with elevator accessibility, due to her medical conditions. Encounter Details Date Type Department Care Team ([facility] Contact Info) Description 07/05/2022 Telephone [facility] MED & PEDS [address] [place], [place] [phone] Corin Doyle MD [address] [place] [address] Letter Request (I called regarding the pt's [...] Office Visit [facility] MEDICINE [address] [place] [phone] Corin Doyle MD [facility] [place], [place] [phone] 07/01/2025 3:30 PM EST Medication Management [facility] [address] [place] [address] Sam Peace, PharmSol [address] [place] [address] documented as of this encounter Visit Diagnoses Not on filedocumented in this encounter Care Teams Residential Collections Relationship Specialty Start Date End Date Corin Doyle MD [address] [place] [address] [phone] PCP - General Family Medicine 07/18/18 Sam Peace, PharmD [address] [place] [address] [phone] Pharmacist Pharmacy 03/06/25 Danay Carmen Director InformaticsMixer Slagman 12/09/23 Danay Carmen Director InformaticsMixer Slagman 08/27/24 documented as of this encounter
--- OUTSIDE RECORDS SUMMARY | 2025-04-19 14:45 | XMS_ITS | Encounter Summary ---
Author Organization [employer] Address [address] [facility] [address] 7t [place] [address] Care Team Providers Care Filament Shaper Name Role Phone Corin Doyle MD Primary Care Provider [phone] Sam Peace PharmD Unavailable [phone] Reason for Visit * Reason Onset Date Comments Med Refill 11/14/2023 Encounter Details Date Type Department Care Team (Late st Contact Info) Description 11/14/2023 Refill [facility] [address] [place] [address] Corin Doyle MD 230 [place] [address] Rash Social History Tobacco Use Types Packs/Day [...] PM EDT Office Visit [facility] [address] [place] [address] Corin Doyle MD [address] [place] [address] 07/01/2025 3:30 PM EST Medication Management [facility] [address] [place] [address] Sam Peace, PharmD [address] [place] [phone] documented as of this encounter Visit Diagnoses Diagnosis Rash Rash and other nonspecific skin eruption documented in this encounter Additional Health Concerns Assessment Noted Time PHQ-9 Depression Total Score: 0 11/24/19 23 3:58 PM EDT documented as of this encounter Care Teams Filament Shaper Relationship Specialty Start Date End Date Corin Doyle MD [address] [place] [phone] PCP - General Family Medicine 07/18/18 Sam Peace, PharmD [address] [place] [address] [phone] Pharmacist Pharmacy 03/06/25 Danay Carmen Respite CoordinatorWireless Sales Manager 12/09/23 Danay Carmen Respite CoordinatorWireless Sales Manager 08/27/24 documented as of this encounter
--- OUTSIDE RECORDS SUMMARY | 2025-04-19 14:45 | XMS_ITS | Encounter Summary ---
Author Organization [employer] Address 75 [facility] 7t [place] [address] Care Team Providers Care Luster Applicator Name Role Phone Corin Doyle MD Primary Care Provider [phone] Sam Peace PharmD Unavailable [phone] Reason for Visit * Reason Comments Med Refill Encounter Details Date Type Department Care Team ([facility] st Contact Info) Description 03/19/2025 Refill [facility]INE [address] [place], [place] [phone] Corin Doyle MD 230 [place] [address] Social History Tobacco Use Types Packs/Day Years [...] Description 05/06/2025 2:30 PM EDT Office Visit [facility] MEDICINE [address] [place] [address] Corin Doyle MD [address] [place] [address] 07/01/2025 3:30 PM EST Medication Management [address] [address] Sam Peace, Yulissa [address] [place] [phone] documented as of this encounter Visit Diagnoses Not on filedocumented in this encounter Additional Health Concerns Assessment Noted Time PHQ-9 Depression Total Score: 0 08/14/19 25 3:31 PM EST documented as of this encounter Care Teams Luster Applicator Relationship Specialty Start Date End Date Corin Doyle MD [address] [place] [phone] PCP - General Family Medicine 07/18/18 Sam Peace, ConchisD [address] [place] [phone] Pharmacist Pharmacy 03/06/25 Danay Carmen Development MgrSenior Microstrategy Developer 12/09/23 Danay Carmen Development MgrSenior Microstrategy Developer 08/27/24 documented as of this encounter
--- OUTSIDE RECORDS SUMMARY | 2025-04-19 14:45 | XMS_ITS | Encounter Summary ---
Author Organization [employer] Address [address] [facility] [address] 7[address] [place] [address] Care Team Providers Care Facility Administrator Name Role Phone Corin Doyle MD Primary Care Provider [phone] Sam Peace PharmD Unavailable [phone] Reason for Visit * Reason Onset Date Comments Med Refill 07/12/2024 Encounter Details Date Type Department Care Team (Late st Contact Info) Description 07/12/2024 Refill [facility] [address] [place] [address] Corin Doyle MD 230 [place] [address] Social History Tobacco Use Types Packs/Day Years [...] PM EDT Office Visit [facility] [address] [place] [address] Corin Doyle MD [address] [place] [address] 07/01/2025 3:30 PM EST Medication Management [facility] [address] [place] [phone] Sam Peace, PharmD [address] [place] [address] documented as of this encounter Visit Diagnoses Not on filedocumented in this encounter Additional Health Concerns Assessment Noted Time PHQ-9 Depression Total Score: 0 11/24/19 23 3:58 PM EDT documented as of this encounter Care Teams Facility Administrator Relationship Specialty Start Date End Date Corin Doyle MD [address] [place] [address] PCP - General Family Medicine 07/18/18 Sma Peace, PharmD [address] [place] [phone] Pharmacist Pharmacy 03/06/25 Danay Carmen Power Ballast Machine OperatorStrip Machine Tender 12/09/23 Danay Carmen Power Ballast Machine OperatorStrip Machine Tender 08/27/24 documented as of this encounter
--- OUTSIDE RECORDS SUMMARY | 2025-04-19 14:45 | XMS_ITS | Encounter Summary ---
Author Organization [employer] Address [address] [facility] [address] 7t [place] [address] Care Team Providers Care Manager Telecom Name Role Phone Corin Doyle MD Primary Care Provider [phone] Sam Peace PharmD Unavailable [phone] Encounter Details Date Type Department Care Team ([facility] st Contact Info) Description 04/06/2025 Telephone [facility]ICINE 230 [place], [place] [phone] Corin Doyle MD 230 [place] [address] Social History Tobacco Use Types Packs/Day Years [...] Description 05/06/2025 2:30 PM EDT Office Visit [address] [address] Corin Doyle MD [address] [place] [address] 07/01/2025 3:30 PM EST Medication Management [address] [address] Sam Peace, Yulissa [address] [place] [address] documented as of this encounter Visit Diagnoses Not on filedocumented in this encounter Additional Health Concerns Assessment Noted Time PHQ-9 Depression Total Score: 0 08/14/19 25 3:31 PM EST documented as of this encounter Care Teams Manager Telecom Relationship Specialty Start Date End Date Corin Doyle MD [address] [place] [phone] PCP - General Family Medicine 07/18/18 Sam Peace, PharmD [address] [place] [address] [phone] Pharmacist Pharmacy 03/06/25 Danay Carmen Rehabilitation EngineerReproducer 12/09/23 Danay Carmen Rehabilitation EngineerReproducer 08/27/24 documented as of this encounter
--- OUTSIDE RECORDS SUMMARY | 2025-04-19 14:45 | XMS_ITS | Encounter Summary ---
Author Organization [employer] Address 75 [facility] 7t [place] [address] Care Team Providers Care Sales Route Driver Helper Name Role Phone Corin Doyle MD Primary Care Provider [phone] Sam Peace PharmD Unavailable [phone] Reason for Visit * Reason Comments Med Refill Encounter Details Date Type Department Care Team ([facility] st Contact Info) Description 12/14/2022 Refill [facility] 230 [place], [place] [phone] Corin Doyle MD 230 [place], [place] [phone] LLQ pain Social History Tobacco Use Types [...] 05/06/2025 2:30 PM EDT Office Visit [facility] [address] [place] [address] Corin Doyle MD [address] [place] [address] 07/01/2025 3:30 PM EST Medication Management [facility] [address] [place] [phone] Sam Peace, PharmD [address] [place] [phone] documented as of this encounter Visit Diagnoses Diagnosis LLQ pain Abdominal pain, left lower quadrant documented in this encounter Additional Health Concerns Assessment Noted Time PHQ-9 Depression Total Score: 0 11/24/19 23 3:58 PM EDT documented as of this encounter Care Teams Sales Route Driver Helper Relationship Specialty Start Date End Date Corin Doyle MD [address] [place] [phone] PCP - General Family Medicine 07/18/18 Sam Peace, PharmD [address] [place] [address] [phone] Pharmacist Pharmacy 03/06/25 Danay Carmen Rn Occupational HealthConfiguration Management Specialist 12/09/23 Danay Carmen Rn Occupational HealthConfiguration Management Specialist 08/27/24 documented as of this encounter
--- OUTSIDE RECORDS SUMMARY | 2025-04-19 14:45 | XMS_ITS | Encounter Summary ---
Author Organization [employer] Address [address] [facility] [address] 7[address] [place] [address] Care Team Providers Care Refrigeration Plant Operator Name Role Phone Corin Doyle MD Primary Care Provider [phone] Sam Peace PharmD Unavailable [phone] Encounter Details Date Type Department Care Team ([facility] st Contact Info) Description 04/01/2025 Telephone [facility]INE [address] [place], [place] [phone] Corin Doyle MD 230 [place] [address] Social History Tobacco Use Types Packs/Day Years [...] Description 05/06/2025 2:30 PM EDT Office Visit [address] [address] Corin Doyle MD [address] [place] [address] 07/01/2025 3:30 PM EST Medication Management [address] [address] Sam Peace, Yulissa [address] [place] [address] documented as of this encounter Visit Diagnoses Not on filedocumented in this encounter Additional Health Concerns Assessment Noted Time PHQ-9 Depression Total Score: 0 08/14/19 25 3:31 PM EST documented as of this encounter Care Teams Refrigeration Plant Operator Relationship Specialty Start Date End Date Corin Doyle MD [address] [place] [address] PCP - General Family Medicine 07/18/18 Sam Peace, PharmD [address] [place] [address] [phone] Pharmacist Pharmacy 03/06/25 Danay Carmen Fitting Room SupervisorTripper 12/09/23 Danay Carmen Fitting Room SupervisorTripper 08/27/24 documented as of this encounter
--- OUTSIDE RECORDS SUMMARY | 2025-04-19 14:45 | XMS_ITS | Encounter Summary ---
Author Organization [employer] Address 75 [facility] 7t [place] [address] Care Team Providers Care Operative Supervisor Name Role Phone Corin Doyle MD Primary Care Provider [phone] Sam Peace PharmD Unavailable [phone] Encounter Details Date Type Department Care Team (Late Contact Info) Description 06/28/2022 Orders Only [facility] CH[facility] MED & PEDS [address] [place] [address] Belgica Lanza RN Social History Tobacco Use [...] Upcoming Encounters Date Type Department Care Team ([facility] Contact Info) Description 05/06/2025 2:30 PM EDT Office Visit [facility] [address] [place] [address] Corin Doyle MD [address] [place] [address] [phone] 07/01/2025 3:30 PM EST Medication Management [facility] [address] [place] [phone] Sam Peace, PharmD 230 [place], [place] [phone] documented as of this encounter Visit Diagnoses Not on filedocumented in this encounter Care Teams Operative Supervisor Relationship Specialty Start Date End Date Corin Doyle MD 230 [place], [place] [phone] PCP - General Family Medicine 07/18/18 Sam Peace, Yulissa 230 [place] [address] Pharmacist Pharmacy 03/06/25 Danay Carmen Oracle [employer] Middleware DeveloperIgnition Mechanic 12/09/23 Danay Carmen [employer] Middleware DeveloperIgnition Mechanic 08/27/24 documented as of this encounter
--- OUTSIDE RECORDS SUMMARY | 2025-04-19 14:45 | XMS_ITS | Clinical Summary ---
Author Organization [employer] Address [address] [facility] [address] [place] [address] Care Team Providers Care Fender Mechanic Apprentice Name Role Phone Corin Doyle MD Primary Care Provider [phone] Sam Peace PharmD Unavailable [phone] Allergies Active Allergy Reactions Criticality Noted Date [...] BY MOUTH DAILY WHEN DIRECTED BY HEALTH PLASTIC SHEETS SUPERVISOR. DO NOT CRUSH OR CHEW. 30 tablet [...] by mouth daily when directed by health healthcare architect. Do not crush or chew. 30 tablet 025 2024 Discontinued phenazopyridine (Pyridium) 200 MG tablet Take 1 tablet (200 mg) by mouth if needed in the morning, at noon, and at bedtime for bladder spasms for up to 2 days. Take with food 6 tablet 025 2024 Active Problems Problem Noted Date Diagnosed Date [...] -Not on any medication -Not connected with [facility] provider Asthma 11/19/2013 Assessment & Plan (01/02/2025 12:52 PM EDT): -Last exacerbation in Feb 2022. Seen in [facility] ED. Rx prednisone and azithromycin. Negative COVID -Followed by allergy / operating room specialist -Continue Symicort -Continue montelukast -Continue albuterol neb and inhaler prn --Pt uses nebulizer treatment at home because her symptoms respond better and faster to nebulizer treatment Assessment & Plan (08/14/2023 2:52 PM EST): -Last exacerbation in Feb 2022. Seen in [facility] ED. Rx prednisone and azithromycin. Negative COVID -Followed by allergy / operating room specialist -Continue Symicort -Continue montelukast -Continue albuterol neb and inhaler prn --Pt uses nebulizer treatment at home because her symptoms respond better and faster to nebulizer treatment Assessment & Plan (11/23/2022 4:53 PM EDT): -Last exacerbation in Feb 2022. Seen in [facility] ED. Rx prednisone and azithromycin. Negative COVID -Followed by allergy / operating room specialist -Continue Symicort -Continue montelukast -Continue albuterol neb and inhaler prn --Pt uses nebulizer treatment at home because her symptoms respond better and faster to nebulizer treatment Assessment & Plan (07/25/2022 1:55 PM EST): -Last exacerbation in Feb 2022. Seen in [facility] ED. Rx prednisone and azithromycin. Negative COVID -Followed by allergy / operating room specialist -Continue Symicort -Continue montelukast -Continue albuterol neb and inhaler prn --Pt uses nebulizer treatment at home because her symptoms respond better and faster to nebulizer treatment Allergic rhinitis 12/06/2012 Assessment & Plan (01/02/2025 12:51 PM EDT): -Previously followed by Dr. Whitehead, allergy / operating room specialist -Continue loratadine -Continue montelukast -Continue immunotherapy -Continue fluticasone nasal Assessment & Plan (08/14/2023 3:00 PM EST): -Previously followed by Dr. Whitehead, allergy / operating room specialist -Continue loratadine -Continue montelukast -Continue immunotherapy -Continue fluticasone nasal Assessment & Plan (11/29/2022 7:45 AM EDT): -Previously followed by Dr. Whitehead, allergy / operating room specialist -Continue loratadine -Continue montelukast -Continue immunotherapy -Continue fluticasone nasal Assessment & Plan (07/25/2022 2:06 PM EST): -Followed by Dr. Whitehead, allergy / operating room specialist -Continue loratadine -Continue montelukast -Continue immunotherapy -Continue fluticasone nasal Chronic back pain 12/06/2012 Assessment & Plan (07/25/2022 2:07 PM EST): -Previously evaluated by bobbin painter at [facility] -s/p L4 TFESI -Continue [...] nml sinus rhythm, borderline qtc -refer to finish cleaner for eval Encounters Date Type Department Care Team Description 04/15/2025 Orders Only [address] [address] Naomy Boland CNM Urinary frequency (Primary Dx) 04/15/2025 Results Follow-Up [address] [address] Naomy Boland CNM POCT urinalysis dipstick manually resulted, Culture, Urine, Routine, POCT Urine , Additional followed-up results: 2 04/11/2025 2:45 PM EDT Office Visit [address] [address] Naomy Boland CNM Urinary frequency (Primary Dx); Pelvic pain; Screening examination for venereal disease 04/11/2025 Travel 04/11/[address] [phone] Corin Doyle MD Nurse Triage 04/09/2025 Results Follow-Up [address] [address] Naomy Boland CNM Pap Smear 04/06/[address] [address] Corin Doyle MD 04/06/2025 Orders Only [facility] [address] [place] [address] Corin Doyle MD Varicose veins of both lower extremities, unspecified whether complicated (Primary Dx) 04/02/2025 2:45 PM EDT Procedure Visit [facility] [address] [place] [address] Naomy Boland CNM Cervical cancer screening (Primary Dx); Breast pain, right; Unspecified dyspareunia; Breast cyst, left; Cervical polyp; Perimenopause 04/02/2025 Orders Only [facility] [address] [place] [address] Naomy Boland CNM 04/02/2025 Travel 04/02/2025 Results Follow-Up [facility] [address] [place] [address] Corin Doyle MD Basic Metabolic Panel, Magnesium 04/01/2025 Orders Only [facility] [address] [place] [address] Corin Doyle MD Primary hypertension (Primary Dx) 04/01/2025 Telephone [facility] [place] [place] [address] Corin Doyle MD 04/01/2025 Travel 04/01/2025 Telephone [facility] [address] [facility] [place] [address] Naomy Boland CNM chart prep 03/24/2025 Refill [facility] [address] [facility] [place] [address] Corin Doyle MD 03/23/2025 Refill [facility] [address] [facility] [place] [address] Corin Doyle MD 03/20/2025 Refill [facility] [address] [facility] [place] [address] Gabriela López MD 03/20/2025 Refill [facility] [address] [facility] [place] [address] Corin Doyle MD 03/19/2025 Refill [facility] [address], [place] [address] Corin Doyle MD 03/13/2025 Refill [facility] [address] [place], [place] [address] Corin Doyle MD 03/06/2025 Refill [facility] [address] [place], [place] [address] Corin Doyle MD [facility] 03/01/2025 Results Follow-Up [facility] [address] [place], [place] [address] Corin Doyle MD Basic Metabolic Panel 03/01/2025 Orders Only [facility] [place] [address] Corin Doyle MD Hypokalemia (Primary Dx) 03/01/2025 Orders Only [facility] [place] [place] [address] Corin Doyle MD 03/01/2025 Travel 03/01/2025 Refill [facility] [place] [place] [address] Corin Doyle MD 02/26/2025 Travel 02/24/2025 Refill [facility] [address] [place], [place] [address] Corin Doyle MD 02/15/2025 3:30 PM EDT Clinical Support [facility] [place], [place] [address] Saranya Burt RN Primary hypertension 02/15/2025 Telephone [facility] [place], [place] [address] Corin Doyle MD 02/15/2025 Travel 02/14/2025 Travel 02/11/2025 3:40 PM EDT Office Visit [facility] [address] [place], [place] [address] Gabriela López MD Primary osteoarthritis of right knee (Primary Dx); Acute hip pain, right 02/11/2025 Travel 02/07/2025 Refill [facility] [place] [address] Corin Doyle MD 2025 3:30 PM EDT Clinical Support [facility] [address] [place] [address] Blanca Rendon RN Primary hypertension 2025 Travel 01/31/2025 Travel 01/30/2025 Refill [facility] [address] [place] [address] Corin Doyle MD 01/23/2025 Refill [facility] [address] [place] [address] Corin Doyle MD 01/21/2025 Telephone [facility] [address] [place] [address] Corin Doyle MD Prior Authorization ( PA: Kellen) from Last 3 Months Immunizations Immunization Administration [...] Description 05/06/2025 2:30 PM EDT Office Visit [facility] [address] [place] [address] Corin Doyle MD [address] [place] [address] 07/01/2025 3:30 PM EST Medication Management [facility] [address] [place], [place] [phone] Sam Peace, PharmD [address] [place], [place] [phone] Health Maintenance Due Date Last Done Comments [...] Pelvic pain Screening examination for venereal disease TRICHOMONAS VAGINALIS RNA, QUALITATIVE, TMA Routine 04/11/2025 3:00 PM EDT Pelvic pain Screening examination for venereal disease CHLAMYDIA/N. GONORRHOEAE RNA, TMA, UROGENITAL Routine 04/11/2025 3:00 PM EDT Pelvic pain Screening examination for venereal disease CULTURE, URINE, ROUTINE Routine 04/11/2025 3:00 PM EDT Urinary frequency POCT URINALYSIS DIPSTICK Routine 04/11/2025 2:50 PM [...] Media Lot # [id number] Lot# Expiration Date [id number] Urine 04/11/2025 3:05 PM EDT Naomy Boland [facility] POINT OF CARE TEST ENTER/ EDIT ORDERABLES Final Result * POCT fern test, vaginal fluid manually resulted (04/11/2025 3:01 PM EDT) JUANIS Prep Negative Comment:pH 4.5, neg whiff, n eg clue, neg trich, neg yeast, neg wbc Vaginal Fluid Vaginal structure / Unknown 04/11/2025 3:01 PM EDT Naomy Boland [facility] POINT OF CARE TEST ENTER/ EDIT ORDERABLES Final Result * Trichomonas RNA (Urine/Vaginal) (04/11/2025 3:00 PM EDT) Trichomas vaginalis RNA, QL, TMA NOT DETECTED NOT DETECTED [facility] Comment:For additional infor robert, please refer tohttp://education.[employer].iodine/faq/Trichomonastma(This link is being provided for informational/educational purposes only.)THIS TEST WAS PERFORMED AT:[facility] [employer] [place] [phone] MCALLISTER MD Urine (Urine, Random) 04/11/2025 3:00 PM EDT 04/11/2025 5:39 PM EDT us Naomy MERLOS LAB BODY FLUIDS AND STOOL S ORDERABLES Final Result [facility] [address] [place] [address] [phone] * Chlamydia/N. Gonorrhoeae RNA, TMA, Vagina (04/11/2025 3:00 PM EDT) CT PCR NOT DETECTED Not Detect. [facility] Comment:A not detected test result does not exclude the possibilityof infection because test results can be affected byimproper specimen collection, concurrent antibiotic therapy,or the number of organisms in the specimen which may bebelow the sensitivity of the test. As with many diagnostictests, results from the Xpert CT/NG assay should beinterpreted in conjunction with other laboratory andclinical data available to the clinician.Xpert CT/NG performance has not been evaluated in patientsless than 14 years of age. The assay should not be used forthe evaluationof suspected sexual abuse or for other medico-legalindications. Additional testing is recommended in anycircumstance when false positive or false negative resultscould lead to adverse medical, social or psychologicalconsequences. NG PCR NOT DETECTED Not Detect. [facility] Comment:A not detected test result does not exclude the possibilityof infection because test results can be affected byimproper specimen collection, concurrent antibiotic therapy,or the number of organisms in the specimen which may bebelow the sensitivity of the test. As with many diagnostictests, results from the Xpert CT/NG assay should beinterpreted in conjunction with other laboratory andclinical data available to the clinician.Xpert CT/NG performance has not been evaluated in patientsless than 14 years of age. The assay should not be used forthe evaluationof suspected sexual abuse or for other medico-legalindications. Additional testing is recommended in anycircumstance when false positive or false negative resultscould lead to adverse medical, social or psychologicalconsequences. Swab Vaginal structure / Unknown 04/11/2025 3:00 PM EDT 04/11/2025 5:39 PM EDT [facility] LAB MICROBIOLOGY - GENERA L ORDERABLES Final Result Performing Organization Address [facility] Co de Phone Number [facility] [address] [place] [phone] * Culture, Urine, Routine (04/11/2025 3:00 PM EDT) Urine Urine specimen obtained by clean catch procedure / Unknown 04/11/2025 3:00 PM EDT 04/11/2025 5:39 PM EDT Comment:UACC Narrative [facility] - 04/13/2025 11:18 AM EDT Urine Culture Report Result Urine Culture > 100,000 cfu/ml Urine Culture Mixed bacterial buddy characteristic of Urine Culture urogenital contamination. Specimen Source: Urine clean catch [facility] LAB MICROBIOLOGY - GENERA L ORDERABLES Final Result Performing Organization Address [facility] Co de Phone Number [facility] [address] [place] [phone] * POCT urinalysis dipstick manually resulted (04/11/2025 [...] Media Lot # [id number] Lot# Expiration Date [id number] Urine 04/11/2025 2:50 PM EDT Naomy Jessbree CNJessica POINT OF CARE TEST ENTER/ EDIT ORDERABLES Final Result * VASC US Lower Extremity Venous Insufficiency Bilateral (04/05/2025 1:57 PM EDT) 04/05/2025 1:57 PM EDT Narrative [facility] - 04/05/2025 3:25 PM EDT [address] [address] Ultrasound Report Signed Patient: Janelle León MR#: [id number] : 1975 Acct:[id number] Age/Sex: 50 / F ADM Date: 04/05/25 Loc: . Attending Dr: Corin Doyle MD Ordering Physician: Corin Doyle MD Date of Service: 04/05/25 Procedure(s): US venous insuf bilat Accession Number(s): [id number] cc: Corin Doyle MD Reason for Exam: [...] 0.4 cm Reflux: 0 ms PERFORATORS: Location: Package Liner into varicosity, distal calf Size: 0.3 cm [...] PERFORATORS: Location: Greater saphenous vein, mid thigh diagnostic medical sonographer into varicosity Size: 0.2 cm Reflux: 0 [...] 04/05/25 1522 DD/ 1357 TD/TT: 04/05/25 1425 Pharmacy Cashier: Procedure Note Donotuseinterpreter, Image - 04/05/2025 [place] [address] Ultrasound Report Signed Patient: Janelle León GMR#: [id number] : 1975Acct:[id number] Age/Sex: 50 / FADM Date: 04/05/25 Loc: . Attending Dr: Corin Doyle MD Ordering Physician: Corin Doyle MD Date of Service: 04/05/25 Procedure(s): US venous insuf bilat Accession Number(s): [id number] cc: Corin Doyle MD Reason for Exam: [...] 0.4 cm Reflux: 0 ms PERFORATORS: Location: Package Liner into varicosity, distal calf Size: 0.3 cm [...] PERFORATORS: Location: Greater saphenous vein, mid thigh diagnostic medical sonographer into varicosity Size: 0.2 cm Reflux: 0 [...] 04/05/25 1522 DD/ 1357 TD/TT: 04/05/25 1425 Pharmacy Cashier: us Corin Doyle MD CV VASCULAR PROCEDURES Edited Re sult - Final [facility] [address] [place] [phone] * HPV DNA, Low/High Risk (04/02/2025 12:00 AM EDT) HPV High Risk Negative Negative [facility] HPV Genotype 16 Negative Negative [facility] HPV Genotype 18 Negative Negative [facility] Comment:HPV testing performe d at [facility] (CLIA#[id number]), [address] [place] [phone].Testing for HPV was performed using the Laura [...] 04/02/2025 04/03/2025 11: 40 AM EDT us Naomy Boland CNM LAB BLOOD ORDERABLES Tegan johnson Result [facility] [address] [place] [phone] * Pap Smear (04/02/2025 12:00 AM EDT) Swab Cervix uteri structure / Unknown 04/02/2025 04/03/2025 11:40 AM EDT Narrative [facility] - 04/09/2025 10:08 AM EDT ----- ------- Name: Janelle León Age/Sex: 50/F : 1975 Unit#: [id number] Attend Dr: NAOMY BOLAND CNM Re04/02/25 Status: DEP REF Location: [facility] Disch: ----- ------- SPEC : [id number] RECD: 04/03/25 STATUS: CHACHO RODRIGUEZ NUM: [id number] EVI: 04/02/250000 SUBM DR: NAOMY BOLAND CNM ENTERED: 04/03/25 SP TYPE: Pap Smr [facility] DR: ORDERED: Pap Smear, PAP [...] and HPV testing will be performed at [facility] (CLIA #[id number]), [address] [place] [address]. Testing for HPV was performed using the Laura CLINT 6800 system. The presence of HPV in the [...] detected. All professional services are performed by [facility] ([address] [place] [address], [place] [address]; ; CLIA #[id number]). The PAP Test is a screening procedure with the inherent possibility of both false negative and false positive results. Results should be interpreted in the context of historic and current clinical findings. Reliability of the PAP Test is enhanced by performing the test on a regular repetitive basis. CONTINUED ON NEXT PAGE ----- ------- Name: LeónJanelle gomez Age/Sex: 50/F : 1975 Unit#: [id number] Attend Dr: NAOMY BOLAND [facility] Re04/02/25 Status: DEP [facility] Disch: ----- ------- SPEC : [id number] RECD: 04/03/25-114 STATUS: CHACHO RODRIGUEZ NUM: [id number] EVI: 04/02/25-[address]: NAOMY BOLAND [facility] ENTERED: 04/03/25-1156 SP TYPE: Pap Becky POSEY DR: ORDERED: Pap Smear, PAP path review ----- ------- Signed (signature on file) Rios Castro MD 04/09/25 1008 ----- ------- END OF REPORT Naomy Boland CNM LAB CYTOLOGY ORDERABLES F inal Result Performing Organization Address [facility] Co de Phone Number [facility] [address] [place] [phone] * Magnesium (04/01/2025 3:26 PM EDT) Magnesium 2.1 1.6 - 2.6 mg/dL [facility] Blood Venous blood specimen / Unknown 04/01/2025 3:26 PM EDT 04/01/2025 4:08 PM EDT Corin Doyle MD LAB BLOOD ORDERABLES Final Resul t Performing Organization Address [facility] de Phone Number [facility] [address] [place] [phone] * (ABNORMAL) Basic Metabolic Panel (04/01/2025 3:26 PM EDT) Only the most recent of2 resultswithin the time period is included. Sodium 144 135 - 145 mmol/L [facility] Potassium 3.6 3.3 - 5.1 mmol/L [facility] Chloride 109(H) 96 - 108 mmol/L [facility] Carbon Dioxide 29 22 - 29 mmol/L [facility] Anion Gap 10(L) 12 - 20 [facility] Urea Nitrogen (BUN) 15 9 - 16 mg/dL [facility] Creatinine, Serum 0.81 0.5 - 1.4 mg/dL [facility] Estimated Glomerular Filt Rate >60 [facility] Comment:Chronic Kidney Disea se: Estimated GFR < 60 mL/min/1.41z4Wasxws Kidney Disease: Estimated GFR < 15 mL/min/1.73m2 Glucose 87 60 - 115 mg/dL [facility] Calcium 8.9 8.4 - 10.2 mg/dL [facility] Blood Venous blood specimen / Unknown 04/01/2025 3:26 PM EDT 04/01/2025 4:08 PM EDT Corin Doyle MD LAB BLOOD ORDERABLES Final Resul t Performing Organization Address [facility] Co de Phone Number [facility] [address] [place] [phone] * Lipid Panel with Reflex to Direct LDL (08/14/2024 4:05 PM EST) Triglycerides 114 <150 mg/dL [facility] Comment:Desirable Triglyceri de: less than 150 mg/dLBorderline High Triglyceride 150-199 mg/dLHigh Triglyceride: 200-499 mg/dLVery High Triglyceride: greater than or equal to 5OO mg/dL Cholesterol 146 <200 mg/dL [facility] Comment:Desirable Cholestero l: less than 200 mg/dLBorderline High Cholesterol: 200-239 mg/dLHigh Cholesterol: greater than 239 mg/dL LDL Cholesterol Calculated 83 <100 mg/dL [facility] Comment:Desirable LDL: less than 100 mg/dLNear Optimal/Above Optimal LDL: 110- 129 mg/dLBorderline High LDL: 130-159 mg/dLHigh LDL: 160-189 mg/dLVery High LDL: greater than or equal to 190 mg/dL HDL Cholesterol 41 >40 mg/dL [facility] Comment:Desirable HDL: great er than 40 mg/dL Note: This HDL assay may give artificially low results in patients with liver disease. Blood 08/14/2024 4:05 PM EST 08/14/2024 5:33 PM EST Corin Doyle MD LAB BLOOD ORDERABLES Final Resul t Performing Organization Address [facility] Co de Phone Number [facility] [address] [place] [phone] * BI US Breast Limited Left (01/26/2024 3:08 PM EDT) Anatomical Region Laterality Modality Breast Left Ultrasound 01/26/2024 3:08 PM EDT Narrative 01/26/2024 4:54 PM EDT [facility] [address] [place] [address] Ultrasound Report Signed Patient: Janelle León MR#: [id number] : 1975 Acct:[id number] Age/Sex: 48 / F ADM Date: 01/26/24 Loc: HO.MAMMO Attending Dr: Corin Doyle MD Ordering Physician: Corin Doyle MD Date of Service: 01/26/24 Procedure(s): US breast LT limited mamm only Accession Number(s): [id number] cc: Corin Doyle MD EXAMINATION: MM DIAGNOSTIC [...] in OV> 01/26/24 1651 DD/ 1508 TD/TT: Pharmacy Cashier: Procedure Note Donotuseinterpreter, Image - 01/26/2024 [facility]'[address] [place] [address] Ultrasound Report Signed Patient: Janelle León GMR#: [id number] : 1975Acct:[id number] Age/Sex: 48 / FADM Date: 01/26/24 Loc: HO.MAMMO Attending Dr: Corin Doyle MD Ordering Physician: Corin Doyle MD Date of Service: 01/26/24 Procedure(s): US breast LT limited mamm only Accession Number(s): [id number] cc: Corin Doyle MD EXAMINATION: MM DIAGNOSTIC [...] in OV> 01/26/24 1651 DD/ 1508 TD/TT: Pharmacy Cashier: us Corin Doyle MD IMG US PROCEDURES Final Result * Hepatitis A,B,C Profile (11/11/2023 8:41 AM EDT) Hepatitis A IgM Nonreactive Nonreactive [facility] Comment:IgM antibodies to GUZMÁN V not detected; does not exclude earlyacute or recovered HAV infection. ~Hepatitis B Surface Antibody REACTIVE Nonreactive [facility] Comment:REACTIVE: > 11.99 mI U/mL Hepatitis B Core Antibody Nonreactive Nonreactive [facility] Hepatitis C Antibody Nonreactive Nonreactive [facility] Comment:Antibodies to HCV no t detected; does not exclude early acuteHCV infection. Hepatitis B Surface Ag Negative Negative [facility] Blood Venous blood specimen / Unknown 11/11/2023 8:41 AM EDT 11/11/2023 11:40 AM EDT Corin Doyle MD LAB BLOOD ORDERABLES Final Resul t Performing Organization Address [facility] Co de Phone Number [facility] [address] [place] [phone] [phone] * HIV 1/2 ANTIGEN/ANTIBODY,FOURTH GENERATION W/RFL (07/23/2020 12:19 PM EST) HIV-1/2 ANTIGEN AND ANTIBODIES, 4TH GENERATION W/ REFLEX NON-REACT LU NON-REACT LU [facility] Comment: HIV-1 antigen and HIV-1/HIV-2 [...] purpose. For additional information please refer to http://education.[employer].iodine/faq/FLG878 (This link is being provided for informational/ educational purposes only.) The performance of this assay has not been clinically validated in patients less than 2 years old. 07/23/2020 12:1 9 PM EST Corin Doyle MD LAB BLOOD ORDERABLES Final Resul t Performing Organization Address [facility] Co de Phone Number [facility] [address] from Last 3 Months or Most Recently Relevant to Health Maintenance Insurance * Guarantor: Janelle León Account Type Relation to Patient Date of Phone Billing Address Personal/Family Self 1975 [address] [place] [address] [facility] MEDICAID STAND ADULT Care Teams Fender Mechanic Apprentice Relationship Specialty Start Date End Date Corin Doyle MD [address] [place] [address] PCP - General Family Medicine 07/18/18 Sam Peace, PharmD [address] [place] [address] Pharmacist Pharmacy 03/06/25 Danay Carmen Regional Sales AssociateOre Dressing Engineer 12/09/23 Danay Carmen Regional Sales AssociateOre Dressing Engineer 08/27/24
--- OUTSIDE RECORDS SUMMARY | 2025-04-19 14:45 | XMS_ITS | Encounter Summary ---
Author Organization [employer] Address [address] [place] [address] 7t [place] [address] Care Team Providers Care Pharmacy District Manager Name Role Phone Corin Doyle MD Primary Care Provider [phone] Sam Peace PharmD Unavailable [phone] Reason for Referral * Imaging (Routine) - Closed Specialty Diagnoses / Procedures Referred By Contac t Referred To Contact Radiology Diagnoses Breast cancer screening by mammogram Procedures BI Mammogram Screening Tomosynthesis Bilateral Corin Doyle MD [address] [place] [address] Phone: tel: fax: [address] Phone: tel: fax: Referral ID Status Reason Start Date Expiration Date Visits Re quested Visits Authorized [id number] Closed 11/01/2023 10/31/2024 1 1 * Consultation (Routine) - Canceled Specialty Diagnoses / Procedures Referred By Contac t Referred To Contact Gastroenterology Diagnoses Colon cancer screening Corin Doyle MD [address] [place] [address] Phone: tel: fax: Referral ID Status Reason Start Date Expiration Date Visits Requested Visits Authorized [id number] Canceled Specialty Services Required 11/01/2023 10/31/2024 1 1 * Imaging (Routine) - Closed Specialty Diagnoses / Procedures Referred By Contantwon t Referred To Contact Radiology Diagnoses Elevated liver enzymes Procedures US Abdomen Comp w elastography Corin Doyle MD [address] [place] [address] Phone: tel: fax: [facility] [address] [place] [address] Phone: tel: fax: Referral ID Status Reason Start Date Expiration Date Visits Re quested Visits Authorized [id number] Closed 11/01/2023 10/31/2024 1 1 Encounter Details Date Type Department Care Team (Late st Contact Info) Description 11/01/2023 Orders Only [facility] [address] [place] [address] Corin Doyle MD [address] [place] [address] Elevated liver enzymes (Primary Dx); Breast cancer [...] Description 05/06/2025 2:30 PM EDT Office Visit [facility] [address] [place] [address] Corin Doyle MD [address] [place] [address] 07/01/2025 3:30 PM EST Medication Management [facility] [address] [place] [address] Sam Peace, PharmD [address] [place] [address] Scheduled Referrals Name Type Priority Associated Diagnoses [...] PM EDT Narrative 12/30/2023 5:50 AM EDT [address] [place], [place] [address] Mammography Report Signed Patient: Janelle León MR#: [id number] : 1975 Acct:[id number] Age/Sex: 48 / F ADM Date: 11/29/23 Loc: HO.MAMMO Attending Dr: Corin Doyle MD Ordering Physician: Corin Doyle MD Results: 0Incomple te: Needs Additional Imaging Evaluation Date of Service: 11/29/23 Follow Up: Additional Imagi ng Procedure(s): MM tomosynthesis screening BI Accession Number(s): [id number] cc: Corin Doyle MD EXAMINATION: MM SCREENING [...] in OV> 12/30/23 0546 DD/ 1557 TD/TT: Blade Boner: Procedure Note Donotuseinterpreter, Image - 12/30/20[facility] [address] [place] [address] Mammography Report Signed Patient: Janelle León GMR#: [id number] : 1975Acct:[id number] Age/Sex: 48 / FADM Date: 11/29/23 Loc: HARI Attending Dr: Corin Doyle MD Ordering Physician: Corin Doyle MDResults: 0Incomple te: Needs Additional Imaging Evaluation Date of Service: 11/29/23Follow Up: Additional Imagi ng Procedure(s): MM tomosynthesis screening BI Accession Number(s): [id number] cc: Corin Doyle MD EXAMINATION: MM SCREENING [...] in OV> 12/30/23 0546 DD/ 1557 TD/TT: Blade Boner: us Corin Doyle MD IMG BI PROCEDURES Edited Result - Final * US Abdomen Comp w elastography (11/22/2023 11:50 AM EDT) Anatomical Region Laterality Modality Abdomen Ultrasound 11/22/2023 11:5 0 AM EDT Narrative 11/28/2023 5:18 PM EDT [place] [address] Ultrasound Report Signed Patient: Janelle León MR#: [id number] : 1975 Acct:[id number] Age/Sex: 48 / F ADM Date: 11/22/23 Loc: HO.US Attending Dr: Corin Doyle MD Ordering Physician: Corin Doyle MD Date of Service: 11/22/23 Procedure(s): US abdomen comp w elastography Accession Number(s): [id number] cc: Corin Doyle MD EXAMINATION: US COMPLETE [...] in OV> 11/28/23 1714 DD/ 1150 TD/TT: Blade Boner: KIMI Procedure Note Donotuseinterpreter, Image - 11/28/2023 [place] [address] Ultrasound Report Signed Patient: Janelle León GMR#: [id number] : 1975Acct:[id number] Age/Sex: 48 / FADM Date: 11/22/23 Loc: HO.US Attending Dr: Corin Doyle MD Ordering Physician: Corin Doyle MD Date of Service: 11/22/23 Procedure(s): US abdomen comp w elastography Accession Number(s): [id number] cc: Corin Doyle MD EXAMINATION: US COMPLETE [...] in OV> 11/28/23 1714 DD/ 1150 TD/TT: Blade Boner: KIMI us Corin Doyle MD IMG US PROCEDURES Final Result * (ABNORMAL) Potassium (11/11/2023 8:41 AM EDT) Potassium 3.2(L) 3.3 - 5.1 mmol/L [facility] Blood Venous blood specimen / Unknown 11/11/2023 8:41 AM EDT 11/11/2023 11:40 AM EDT Corin Doyle MD LAB BLOOD ORDERABLES Final Resul t [facility] [address] [place] [phone] * Hepatitis A,B,C Profile (11/11/2023 8:41 AM EDT) Hepatitis A IgM Nonreactive Nonreactive [facility] Comment:IgM antibodies to GUZMÁN V not detected; does not exclude earlyacute or recovered HAV infection. ~Hepatitis B Surface Antibody REACTIVE Nonreactive [facility] Comment:REACTIVE: > 11.99 mI U/mL Hepatitis B Core Antibody Nonreactive Nonreactive [facility] Hepatitis C Antibody Nonreactive Nonreactive [facility] Comment:Antibodies to HCV no t detected; does not exclude early acuteHCV infection. Hepatitis B Surface Ag Negative Negative [facility] Blood Venous blood specimen / Unknown 11/11/2023 8:41 AM EDT 11/11/2023 11:40 AM EDT us Corin oDyle MD LAB BLOOD ORDERABLES Final Resul t [facility] [address] [place] [address] [phone] * (ABNORMAL) CBC auto differential (11/11/2023 8:41 AM EDT) White Blood Count 6.6 4.8 - 10.8 X10*3/uL [facility] Red Blood Count 5.08 4.20 - 5.50 X10*6/uL [facility] Hemoglobin 13.4 12.0 - 16.0 g/dl [facility] Hematocrit 42.1 37.0 - 47.0 % [facility] Mean Corpuscular Volume 82.9 80.0 - 98.0 fL [facility] Mean Corpuscular Hemoglobin 26.4(L) 27.0 - 33.0 pg [facility] Mean Corpuscular HGB Conc 31.8 31.0 - 35.0 g/dl [facility] Red Cell Distribution Width 14.4 11.0 - 16.0 % [facility] Platelet Count 267 160 - 400 X10*3/uL [facility] Mean Platelet Volume 11.0 9.4 - 12.3 fL [facility] Neutrophils Percent Auto 59.9 45 - 73 % [facility] Imm Gran Pct Auto 0.6(H) 0.0 - 0.4 % [facility] Lymphocytes Percent Auto 26.2 20 - 40 % [facility] Monocytes Percent Auto 8.4 2 - 11 % [facility] Eosinophils Percent Auto 3.8 0 - 4 % [facility] Basophils Percent Auto 1.1 0 - 2 % [facility] NRBC Pct Auto 0.0 0.0 - 0.2 /100WBC [facility] Neutrophils Absolute Auto 3.9 2.0 - 8.3 x10*3/uL [facility] Imm Gran Abs Auto 0.04(H) 0.00 - 0.03 X10*3/uL [facility] Lymphocytes Absolute Auto 1.7 1.2 - 4.9 X10*3/uL [facility] Monocytes Absolute Auto 0.6 0.1 - 1.2 X10*3/uL [facility] Eosinophils Absolute Auto 0.3 0.0 - 0.4 X10*3/uL [facility] Basophils Absolute Auto 0.1 0.0 - 0.2 X10*3/uL [facility] NRBC Abs Auto 0.000 0.0 - 0.012 X10*3/uL [facility] Blood Venous blood specimen / Unknown 11/11/2023 8:41 AM EDT 11/11/2023 11:40 AM EDT Corin Doyle MD LAB BLOOD ORDERABLES Final Resul t [facility] [address] [place] [address] [phone] documented in this encounter Visit Diagnoses Diagnosis Elevated liver enzymes- Primary Other nonspecific abnormal serum enzyme levels Breast cancer screening by mammogram Colon cancer screening Special screening for malignant neoplasms, colon Hypokalemia Hypopotassemia documented in this encounter Additional Health Concerns Assessment Noted Time PHQ-9 Depression Total Score: 0 11/24/19 23 3:58 PM EDT documented as of this encounter Care Teams Pharmacy District Manager Relationship Specialty Start Date End Date Corin Doyle MD [address] [place] [address] PCP - General Family Medicine 07/18/18 Sam Peace, PharmD [address] [place] [address] Pharmacist Pharmacy 03/06/25 Danay Carmen Ferryboat Ticket TakerSecurity Expert 12/09/23 Danay Carmen Ferryboat Ticket TakerSecurity Expert 08/27/24 documented as of this encounter
--- OUTSIDE RECORDS SUMMARY | 2025-04-19 14:45 | XMS_ITS | Encounter Summary ---
Author Organization [employer] Address [address] [place] [address] 7t [place] [address] Care Team Providers Care Field Artillery Fire Control Man Name Role Phone Corin Doyle MD Primary Care Provider [phone] Sam Peace PharmD Unavailable [phone] Reason for Referral * Consultation (Routine) - Authorized Specialty Diagnoses / Procedures Referred By Contac t Referred To Contact Pharmacy Diagnoses Primary hypertension Corin Doyle MD [address] [place] [address] Phone: tel: fax: Referral ID Status Reason Start Date Expiration Date Visits Requested Visits Authorized [id number] Authorized Consult and Treat 04/01/2025 04/01/2026 6 6 Encounter Details Date Type Department Care Team (Late st Contact Info) Description 04/01/2025 Orders Only [facility] [address] [place] [address] [phone] Corin Doyle MD [address] [place], [place] [phone] Primary hypertension (Primary Dx) Social History Tobacco [...] Description 05/06/2025 2:30 PM EDT Office Visit [facility] [address] [place] [address] Corin Doyle MD [address] [place] [address] 07/01/2025 3:30 PM EST Medication Management [address] [address] Sam Peace, PharmD [address] [place] [address] Scheduled Referrals Name Type Priority Associated Diagnoses Orde r Schedule Referral to Pharmacy CDTM Outpatient Referral Routine Primary hypertension Ordered: 04/01/2025 documented as of this encounter Visit Diagnoses Diagnosis Primary hypertension- Primary Unspecified essential hypertension documented in this encounter Additional Health Concerns Assessment Noted Time PHQ-9 Depression Total Score: 0 08/14/19 3:31 PM EST documented as of this encounter Care Teams Field Artillery Fire Control Man Relationship Specialty Start Date End Date Corin Doyle MD [address] [place] [address] PCP - General Family Medicine 07/18/18 Sam Peace, PharmD [address] [place] [address] Pharmacist Pharmacy 03/06/25 Danay Carmen Baby Registry Sales ConsultantTherapeutic Consultant 12/09/23 Danay Carmen Baby Registry Sales ConsultantTherapeutic Consultant 08/27/24 documented as of this encounter
--- OUTSIDE RECORDS SUMMARY | 2025-04-19 14:45 | XMS_ITS | Encounter Summary ---
Author Organization [employer] Address [address] [facility] [address] 7t [place] [address] Care Team Providers Care Chucking And Sawing Machine Operator Name Role Phone Corin Doyle MD Primary Care Provider [phone] Sam Peace PharmD Unavailable [phone] Reason for Visit * Reason Comments Med Refill Encounter Details Date Type Department Care Team ([facility] st Contact Info) Description 11/07/2023 Refill [facility] [address] [place], [place] [phone] Eddie Guerrero MD [address] [place], [place] [phone] Social History Tobacco Use Types Packs/Day Years [...] 05/06/2025 2:30 PM EDT Office Visit [facility] [address] [place] [address] Corin Doyle MD [address] [place] [address] 07/01/2025 3:30 PM EST Medication Management [facility] [address] [place] [phone] Sam Peace, PharmD [address] [place] [phone] documented as of this encounter Visit Diagnoses Not on filedocumented in this encounter Additional Health Concerns Assessment Noted Time PHQ-9 Depression Total Score: 0 11/24/19 23 3:58 PM EDT documented as of this encounter Care Teams Chucking And Sawing Machine Operator Relationship Specialty Start Date End Date Corin Doyle MD [address] [place] [address] PCP - General Family Medicine 07/18/18 Sam Peace, PharmD [address] [place] [address] [phone] Pharmacist Pharmacy 03/06/25 Danay Carmen Journeyman WiremanSql Developer Dba 12/09/23 Danay Carmen Journeyman WiremanSql Developer Dba 08/27/24 documented as of this encounter
--- OUTSIDE RECORDS SUMMARY | 2025-04-19 14:45 | XMS_ITS | Encounter Summary ---
Author Organization [employer] Address [address] [facility] 7t [place] [address] Care Team Providers Care Manager Printing Name Role Phone Corin Doyle MD Primary Care Provider [phone] Sam Peace PharmD Unavailable [phone] Encounter Details Date Type Department Care Team ([facility] st Contact Info) Description 08/16/2023 Orders Only [facility] [address] [place], [place] [phone] Eddie Guerrero MD [address] [place], [place] [phone] Social History Tobacco Use Types Packs/Day Years [...] EDT Office Visit [facility] [address] [place] [address] Corin Doyle MD [address] [place] [address] 07/01/2025 3:30 PM EST Medication Management [facility] [address] [place] [address] Sam Peace, PharmD [address] [place] [address] documented as of this encounter Visit Diagnoses Not on filedocumented in this encounter Additional Health Concerns Assessment Noted Time PHQ-9 Depression Total Score: 0 11/24/19 23 3:58 PM EDT documented as of this encounter Care Teams Manager Printing Relationship Specialty Start Date End Date Corin Doyle MD [address] [place] [address] PCP - General Family Medicine 07/18/18 Sam Peace, PharmD [address] [place] [address] [phone] Pharmacist Pharmacy 03/06/25 Danay Carmen Naturopathic DoctorMold Worker 12/09/23 Danay Carmen Naturopathic DoctorMold Worker 08/27/24 documented as of this encounter
--- OUTSIDE RECORDS SUMMARY | 2025-04-19 14:45 | XMS_ITS | Encounter Summary ---
Author Organization [employer] Address [address] [facility] 7t [place] [address] Care Team Providers Care Senior Engineering Manager Name Role Phone Corin Doyle MD Primary Care Provider [phone] Sam Peace PharmD Unavailable [phone] Reason for Visit * Reason Onset Date Comments triage 10/28/2022 Encounter Details Date Type Department Care Team ([facility] st Contact Info) Description 10/28/2022 Telephone [facility] [address] [place] [address] Corin Doyle MD [address] [place] [address] triage Social History Tobacco Use Types Packs/Day [...] 11:47 AM EDT Triage call with Suze Rack Maker [place] [id number] Pt reports burning with urination, bladder pressure, slight bilateral flank pain and frequency. Pt denies bad odor, fever. Pt is advised to come to [facility] to be seen today and Pt [...] Description 05/06/2025 2:30 PM EDT Office Visit [facility] [address] [place] [address] Corin Doyle MD [address] [place] [address] 07/01/2025 3:30 PM EST Medication Management [facility] [address] [place] [phone] Sam Peace, ConchisD [address] [place] [address] documented as of this encounter Visit Diagnoses Not on filedocumented in this encounter Care Teams Senior Engineering Manager Relationship Specialty Start Date End Date Corin Doyle MD [address] [place] [address] PCP - General Family Medicine 07/18/18 Sam Peace, PharmD [address] [place] [address] [place] [address] Pharmacist Pharmacy 03/06/25 Danay Carmen Explosive Operator GrenadeShredding Machine Tender 12/09/23 Danay Carmen Explosive Operator GrenadeShredding Machine Tender 08/27/24 documented as of this encounter
--- OUTSIDE RECORDS SUMMARY | 2025-04-19 14:45 | XMS_ITS | Encounter Summary ---
Author Organization [employer] Address [address] 7t [place] [address] Care Team Providers Care Merchandiser Name Role Phone Corin Doyle MD Primary Care Provider [phone] Sam Peace PharmD Unavailable [phone] Encounter Details Date Type Department Care Team ([facility] st Contact Info) Description 03/01/2025 Orders Only [facility] [address] [place], [place] [phone] Corin Doyle MD [address] [place] [address] Hypokalemia (Primary Dx) Social History Tobacco Use [...] Description 05/06/2025 2:30 PM EDT Office Visit [facility] [address] [place] [address] Corin Doyle MD [address] [place] [address] 07/01/2025 3:30 PM EST Medication Management [address] [address] Sam Peace, PharmD [address] [place] [address] documented as of this encounter Procedures Procedure Name Priority Date/Time Associated Diagnosis Comments MAGNESIUM Routine 04/01/2025 3:26 PM EDT Hypokalemia BASIC METABOLIC PANEL Routine 04/01/2025 3:26 PM EDT Hypokalemia documented in this encounter Results * Magnesium (04/01/2025 3:26 PM EDT) Magnesium 2.1 1.6 - 2.6 mg/dL [facility] Blood Venous blood specimen / Unknown 04/01/2025 3:26 PM EDT 04/01/2025 4:08 PM EDT Corin Doyle MD LAB BLOOD ORDERABLES Final Resul t Performing Organization Address [facility] [[email or web address]] Co de Phone Number [facility] [address] [place] [address] [phone] * (ABNORMAL) Basic Metabolic Panel (04/01/2025 3:26 PM EDT) Sodium 144 135 - 145 mmol/L [facility] Potassium 3.6 3.3 - 5.1 mmol/L [facility] Chloride 109(H) 96 - 108 mmol/L [facility] Carbon Dioxide 29 22 - 29 mmol/L [facility] Anion Gap 10(L) 12 - 20 [facility] Urea Nitrogen (BUN) 15 9 - 16 mg/dL [facility] Creatinine, Serum 0.81 0.5 - 1.4 mg/dL [facility] Estimated Glomerular Filt Rate >60 [facility] Comment:Chronic Kidney Disea se: Estimated GFR < 60 mL/min/1.21d5Tovnee Kidney Disease: Estimated GFR < 15 mL/min/1.73m2 Glucose 87 60 - 115 mg/dL [facility] Calcium 8.9 8.4 - 10.2 mg/dL [facility] Blood Venous blood specimen / Unknown 04/01/2025 3:26 PM EDT 04/01/2025 4:08 PM EDT us Corin Doyle MD LAB BLOOD ORDERABLES Final Resul t Performing Organization Address City/[facility]/ZIP Co de Phone Number [facility] [address] [place] [address] [phone] documented in this encounter Visit Diagnoses Diagnosis Hypokalemia- Primary Hypopotassemia documented in this encounter Additional Health Concerns Assessment Noted Time PHQ-9 Depression Total Score: 0 08/14/19 3:31 PM EST documented as of this encounter Care Teams Merchandiser Relationship Specialty Start Date End Date Corin Doyle MD [address] [place] [address] PCP - General Family Medicine 07/18/18 Sam Peace, PharmD [address] [place] [address] Pharmacist Pharmacy 03/06/25 Danay Carmen Broach SetterOffal Baler 12/09/23 Danay Carmen Broach SetterOffal Baler 08/27/24 documented as of this encounter
--- OUTSIDE RECORDS SUMMARY | 2025-04-19 14:45 | XMS_ITS | Encounter Summary ---
Author Organization [employer] Address [address] 7t [place] [address] Care Team Providers Care Director Telemetry Name Role Phone Corin Doyle MD Primary Care Provider [phone] Sam Peace PharmD Unavailable [phone] Encounter Details Date Type Department Care Team ([facility] st Contact Info) Description 04/15/2025 Orders Only [facility] [address] [place] [address] Karli Wells CNM [address] [place] [address] Urinary frequency (Primary Dx) Social History Tobacco Use Types [...] 2:30 PM EDT Office Visit [facility] [address] [place] [address] Corin Doyle MD [address] [place] [address] 07/01/2025 3:30 PM EST Medication Management [facility] [address] [place] [phone] Sam Peace, PharmD [address] [place] [address] Scheduled Orders Name Type Priority Associated Diagnoses Orde r Schedule Culture, Urine, Routine Microbiology Routine Urinary frequency Expected: 04/15/2025 (Approximate), Expires: 04/15/2026 documented as of this encounter Visit Diagnoses Diagnosis Urinary frequency- Primary documented in this encounter Additional Health Concerns Assessment Noted Time PHQ-9 Depression Total Score: 0 08/14/19 25 3:31 PM EST documented as of this encounter Care Teams Director Telemetry Relationship Specialty Start Date End Date Corin Doyle MD [address] [place] [address] PCP - General Family Medicine 07/18/18 Sam Peace, PharmD [address] [place] [address] Pharmacist Pharmacy 03/06/25 Danay Carmen Business Relations ManagerFire Management Technician 12/09/23 Danay Carmen Business Relations ManagerFire Management Technician 08/27/24 documented as of this encounter
--- OUTSIDE RECORDS SUMMARY | 2025-04-19 14:45 | XMS_ITS | Encounter Summary ---
Author Organization [employer] Address [address] [facility] [address] 7t [place] [address] Care Team Providers Care Hot Blast Worker Name Role Phone Corin Doyle MD Primary Care Provider [phone] Sam Peace PharmD Unavailable [phone] Reason for Visit * Reason Onset Date Comments Med Refill 11/01/2023 Encounter Details Date Type Department Care Team (Late st Contact Info) Description 11/01/2023 Refill [facility] [address] [place] [address] Corin Doyle MD [address] [place] [address] Social History Tobacco Use Types Packs/Day Years [...] PM EDT Office Visit [facility] [address] [place] [address] Corin Doyle MD [address] [place] [address] 07/01/2025 3:30 PM EST Medication Management [facility] [address] [place] [phone] Sam Peace, PharmD [address] [place] [address] documented as of this encounter Visit Diagnoses Not on filedocumented in this encounter Additional Health Concerns Assessment Noted Time PHQ-9 Depression Total Score: 0 11/24/19 23 3:58 PM EDT documented as of this encounter Care Teams Hot Blast Worker Relationship Specialty Start Date End Date Corin Doyle MD [address] [place] [address] PCP - General Family Medicine 07/18/18 Sam Peace, PharmD [address] [place] [address] Pharmacist Pharmacy 03/06/25 Danay Carmen Script ReaderBuilding Estimator 12/09/23 Danay Carmen Script ReaderBuilding Estimator 08/27/24 documented as of this encounter
--- OUTSIDE RECORDS SUMMARY | 2025-04-19 14:45 | XMS_ITS | Encounter Summary ---
Author Organization [employer] Address [address] [facility] 7t [place] [address] Care Team Providers Care User Experience Researcher Name Role Phone Corin Doyle MD Primary Care Provider [phone] Sam Peace PharmD Unavailable [phone] Reason for Visit * Reason Onset Date Comments Referral 01/26/2023 Encounter Details Date Type Department Care Team ([facility] st Contact Info) Description 01/26/2023 Telephone [facility] [address] [place] [address] Corin Doyle MD [address] [place] [address] Referral Social History Tobacco Use Types Packs/Day [...] - 01/26/2023 3:24 PM EDT Tc from [facility] with ICP requesting a referral for therapy. States pt is having depression/anxiety. Pt is also hearing voices and seeing a man documented in this encounter Plan of Treatment Upcoming Encounters Date Type Department Care Team (Late st Contact Info) Description 05/06/2025 2:30 PM EDT Office Visit [facility] [address] [place] [address] Corin Doyle MD [address] [place] [address] 07/01/2025 3:30 PM EST Medication Management [facility] [address] [place] [address] Sam Peace, PharmD [address] [place] [address] documented as of this encounter Visit Diagnoses Not on filedocumented in this encounter Additional Health Concerns Assessment Noted Time PHQ-9 Depression Total Score: 0 11/24/19 23 3:58 PM EDT documented as of this encounter Care Teams User Experience Researcher Relationship Specialty Start Date End Date Corin Doyle MD [address] [place] [address] PCP - General Family Medicine 07/18/18 Sam Peace, PharmD [address] [place] [address] Pharmacist Pharmacy 03/06/25 Danay Carmen Otter Trawler BoatswainSenior Escrow Officer 12/09/23 Danay Carmen Otter Trawler BoatswainSenior Escrow Officer 08/27/24 documented as of this encounter
--- OUTSIDE RECORDS SUMMARY | 2025-04-19 14:45 | XMS_ITS | Encounter Summary ---
Author Organization [email or web address] [facility] Address [address] [place] [address] 7 [place] [address] Care Team Providers Care Documentation Writer Name Role Phone Corin Doyle MD Primary Care Provider [phone] Sam Peace PharmD Unavailable [phone] Encounter Details Date Type Department Care Team (Latest Contact Info) Description 11/25/2021 Abstract [facility] CONVERSIONS Dental, Provider, DDS Social History [...] Office Visit [facility] MEDICINE [address] [place] [address] Corin Doyle MD [address] [place] [address] 07/01/2025 3:30 PM EST Medication Management [facility] [address] [place] [address] Sam Peace, PharmD [address] [place] [address] documented as of this encounter Visit Diagnoses Not on filedocumented in this encounter Care Teams Documentation Writer Relationship Specialty Start Date End Date Corin Doyle MD [address] [place] [address] PCP - General Family Medicine 07/18/18 Sam Peace, PharmD [address] [place] [address] Pharmacist Pharmacy 03/06/25 Danay Carmen Indoor Plant TechnicianCharge Weigher 12/09/23 Danay Carmen Indoor Plant TechnicianCharge Weigher 08/27/24 documented as of this encounter
--- OUTSIDE RECORDS SUMMARY | 2025-04-19 14:45 | XMS_ITS | Encounter Summary ---
Author Organization [employer] Address [address] [facility] [address] 7t [place] [address] Care Team Providers Care Lead Setter Name Role Phone Corin Doyle MD Primary Care Provider [phone] Sam Peace PharmD Unavailable [phone] Reason for Visit * Reason Onset Date Comments Results 04/15/2025 Encounter Details Date Type Department Care Team ([facility] st Contact Info) Description 04/15/2025 Results Follow-Up [facility] [address] [place] [address] Karli Wells CNM [address] [place] [address] POCT urinalysis dipstick manually resulted, Culture, Urine, Routine, POCT Urine , Additional followed-up results: 2 Social History Tobacco Use Types Packs/Day Years [...] Telephone Encounter - Saranya Burt RN - 04/15/2025 1:09 PM EDT Per diagnostic specialist, pt US booked for 06/03/25 at 3pm. Telephone call placed to pt. No answer, left v/m. Will also send [employer] message. * Telephone Encounter - Saranya Burt RN - 04/15/2025 1:09 PM EDT ----- Message from Karli Wells sent at 04/15/2025 12:55 PM EDT ----- Please let Janelle know all vaginal tests negative. Urine not consistent with UTI, but >100K mixed growth. If she is still having urinary symptoms, let's repeat culture. I am going to order ultrasound to evaluate pain further as well. Thanks! Second message. I already ordered ultrasound on 04/02. Could you see if she has appointment? ----- Message ----- From: Hilaria Osuna MA Sent: 04/11/2025 2:52 PM EDT To: Karli Wells CNM * Result Encounter Note - Karli Wells CNM - 04/15/2025 12:57 PM EDT Second message. I already ordered ultrasound on 04/02. Could you see if she has appointment? * Result Encounter Note - Karli Wells CNM - 04/15/2025 12:55 PM EDT Please let Janelle know all vaginal tests negative. Urine not consistent with UTI, but >100K mixed growth. If she is still having urinary symptoms, let's repeat culture. I am going to order ultrasound to evaluate pain further as well. Thanks! documented in this encounter Plan of Treatment Upcoming Encounters Date Type Department Care Team (Late st Contact Info) Description 05/06/2025 2:30 PM EDT Office Visit [facility] [address] [place] [address] Corin Doyle MD [address] [place] [address] 07/01/2025 3:30 PM EST Medication Management [facility] [address] [place] [address] Sam Peace, PharmD [address] [place] [address] documented as of this encounter Visit Diagnoses Not on filedocumented in this encounter Additional Health Concerns Assessment Noted Time PHQ-9 Depression Total Score: 0 08/14/19 3:31 PM EST documented as of this encounter Care Teams Lead Setter Relationship Specialty Start Date End Date Corin Doyle MD [address] [place] [address] PCP - General Family Medicine 07/18/18 Sam Peace, ConchisD [address] [place] [address] Pharmacist Pharmacy 03/06/25 Danay Carmen Relief SalespersonInspector Handbag Frames 12/09/23 Danay Carmen Relief SalespersonInspector Handbag Frames 08/27/24 documented as of this encounter
--- OUTSIDE RECORDS SUMMARY | 2025-04-19 14:45 | XMS_ITS | Encounter Summary ---
Author Organization [employer] Address [address] [facility] 7t [place] [address] Care Team Providers Care Resist Coater Developer Name Role Phone Corin Doyle MD Primary Care Provider Sam Peace PharmD Unavailable [phone] Reason for Visit * Reason Onset Date Comments Med Refill 03/13/2025 Encounter Details Date Type Department Care Team (Late st Contact Info) Description 03/13/2025 Refill [facility] [address] [place] [address] Corin Doyle MD [address] [place] [address] Social History Tobacco Use Types Packs/Day Years [...] 2:30 PM EDT Office Visit [facility] [address] [place] [address] Corin Doyle MD [address] [place] [address] 07/01/2025 3:30 PM EST Medication Management [facility] [address] [place] [address] Sam Peace PharmD [address] [place] [address] documented as of this encounter Visit Diagnoses Not on filedocumented in this encounter Additional Health Concerns Assessment Noted Time PHQ-9 Depression Total Score: 0 08/14/19 25 3:31 PM EST documented as of this encounter Care Teams Resist Coater Developer Relationship Specialty Start Date End Date Corin Doyle MD [address] [place] [address] PCP - General Family Medicine 07/18/18 Sam Peace, ConchisD [address] [place] [address], [place] [address] Pharmacist Pharmacy 03/06/25 Danay Carmen Pantograph Ii EngraverDrainman 12/09/23 Danay Carmen Pantograph Ii EngraverDrainman 08/27/24 documented as of this encounter
== END 2025-04-19 14:41 | disposition home or self-care (01) ==
LOC: HO.HHCL 14:40
PROVIDERS: PCP Family Medicine; Visit Provider Advanced Practice Midwife
DX: R35.0 Frequency of micturition (principal)
CPT/HCPCS: 87086

== ENCOUNTER 2025-05-08 13:21 | Outpatient (REF) | payer MEDICAID, SELFPAY ==
--- OUTSIDE RECORDS SUMMARY | 2025-05-06 14:30 | XMS_ITS | Encounter Summary ---
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; Posttraumatic stress disorder; Moderate persistent asthma with acute exacerbation; Intrinsic eczema; Chronic low back pain, unspecified back pain laterality, unspecified whether sciatica present Social History Tobacco Use Types Packs/Day Years [...] Sign Reading Time Taken Comments Blood Pressure 110/80 05/06/2025 3:17 PM EDT Pulse 85 05/06/2025 3:17 PM EDT Temperature 36.3 C (97.4 F) 05/06/2025 3:17 PM EDT Respiratory Rate 14 05/06/2025 3:17 PM EDT Oxygen Saturation 98% 05/06/2025 3:17 PM EDT Inhaled Oxygen Concentration - - Weight 89.4 kg (197 lb 2 oz) 05/06/2025 3:17 PM EDT Height 157.5 cm (5' 2 ) 05/06/2025 3:17 PM EDT Body Mass Index 36.05 05/06/2025 3:17 PM EDT documented in this encounter Plan of Treatment Upcoming Encounters Date Type Department Care Team (Late st Contact Info) Description 07/01/2025 3:30 PM EST Medication Management [facility] [address] [place], [place] [phone] Sam Peace, PharmD [address] [place], [place] [phone] documented as of this encounter Visit Diagnoses Diagnosis Primary hypertension- Primary Unspecified essential hypertension 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 Posttraumatic stress disorder Moderate persistent asthma with acute exacerbation Intrinsic eczema Chronic low back pain, unspecified back pain laterality, unspecified whether sciatica present documented in this encounter Additional Health Concerns Assessment Noted Time PHQ-9 Depression Total Score: 0 08/14/19 25 3:31 PM EST documented as of this encounter Care Teams Casino Gaming Inspector Relationship Specialty Start Date End Date Corin Doyle MD [address] [place] [address] PCP - General Family Medicine 07/18/18 Sam Peace, PharmD [address] [place] [address] Pharmacist Pharmacy 03/06/25 Danay Carmen Plow HolderHome Attendant 12/09/23 Danay Carmen Plow HolderHome Attendant 08/27/24 documented as of this encounter
--- NOTE | ~2025-05-08 | US_ITS ---
EXAMINATION: MM DIAGNOSTIC DIGITAL BREAST TOMOSYNTHESIS, BILATERAL Limited bilateral ultrasound. CLINICAL INFORMATION: Bilateral breast pain. COMPARISON: Mammography: Comparison is made with relevant prior exams. TECHNIQUE: Digital breast mammography with tomosynthesis is performed in both the craniocaudal and mediolateral oblique views along with computer-aided detection (CAD). FINDINGS: The breasts are heterogeneously dense, which may obscure small masses. BB markers in the upper outer breasts bilaterally without underlying abnormal findings at site of breast pain. There are no significant masses, abnormal calcifications, or other abnormalities. Targeted color Doppler ultrasound scanning in the areas of patient's bilateral pain and physician felt lump right breast 8-10 o'clock demonstrates normal fibroglandular breast tissue. There is no sonographic abnormal finding. In the left breast from 2-4 o'clock demonstrates normal fibroglandular breast tissue. There is no sonographic abnormal finding. Results are provided to the patient at time of visit by the technologist. US/US Breast BI Limited Mamm Only IMPRESSION: No mammographic or sonographic abnormal finding to account for the patient's bilateral areas of breast pain and right breast palpable lump. Recommend clinical evaluation and follow-up. ASSESSMENT: BI-RADS Category 1: Negative RECOMMENDATION: 1 year F/U This patient's information was entered into a reminder system with a target due date for their next mammogram. Electronically signed by: Nadia Wade DO 05/08/2025 02:56 PM EDT
--- OUTSIDE RECORDS SUMMARY | 2025-05-08 18:51 | XMS_ITS | Encounter Summary ---
Author Organization [employer] Address [address] [facility] [address] [facility] [address] 7t [place] [address] Care Team Providers Care Senior Accounting Analyst Name Role Phone Corin Doyle MD Primary Care Provider [phone] Sam Peace PharmD Unavailable [phone] Reason for Visit * Reason Onset Date Comments Med Refill 01/25/2024 Encounter Details Date Type Department Care Team (Late st Contact Info) Description 01/25/2024 Refill [facility] [address] [place] [address] Corin Doyle MD [address] [place] [address] Social History Tobacco Use Types Packs/Day Years [...] Description 07/01/2025 3:30 PM EST Medication Management [facility] [address] [place] [address] Sam Peace, PharmD [address] [place] [address] documented as of this encounter Visit Diagnoses Not on filedocumented in this encounter Additional Health Concerns Assessment Noted Time PHQ-9 Depression Total Score: 0 11/24/19 23 3:58 PM EDT documented as of this encounter Care Teams Senior Accounting Analyst Relationship Specialty Start Date End Date Corin Doyle MD [address] [place] [address] PCP - General Family Medicine 07/18/18 Sam Peace, PharmD [address] [place] [address] Pharmacist Pharmacy 03/06/25 Danay Carmen Open Hearth HelperLead Laying And Gluing Machine Operator 12/09/23 Danay Carmen Open Hearth HelperLead Laying And Gluing Machine Operator 08/27/24 documented as of this encounter
--- OUTSIDE RECORDS SUMMARY | 2025-05-08 18:51 | XMS_ITS | Encounter Summary ---
Author Organization [employer] Address [address] [facility] [address] 7t [place] [address] Care Team Providers Care Fence Maker Name Role Phone Corin Doyle MD Primary Care Provider [phone] Sam Peace PharmD Unavailable [phone] Reason for Visit * Reason Onset Date Comments Med Refill 03/23/2024 Encounter Details Date Type Department Care Team (Late st Contact Info) Description 03/23/2024 Refill [facility] [address] [place] [address] Corin Doyle MD 230 [place] [address] Social History Tobacco Use Types Packs/Day Years [...] Description 07/01/2025 3:30 PM EST Medication Management [facility] [address] [place] [address] Sam Peace, PharmD [address] [place] [address] documented as of this encounter Visit Diagnoses Not on filedocumented in this encounter Additional Health Concerns Assessment Noted Time PHQ-9 Depression Total Score: 0 11/24/19 23 3:58 PM EDT documented as of this encounter Care Teams Fence Maker Relationship Specialty Start Date End Date Corin Doyle MD [address] [place] [address] PCP - General Family Medicine 07/18/18 Sam Peace, PharmD [address] [place] [address] Pharmacist Pharmacy 03/06/25 Danay Carmen Tobacco CutterSolar Sales Rep 12/09/23 Danay Carmen Tobacco CutterSolar Sales Rep 08/27/24 documented as of this encounter
--- OUTSIDE RECORDS SUMMARY | 2025-05-08 18:51 | XMS_ITS | Encounter Summary ---
Author Organization [employer] Address [address] [facility] 7t [place] [address] Care Team Providers Care Prosthodontist/Owner Name Role Phone Corin Doyle MD Primary Care Provider [phone] Sam Peace PharmD Unavailable [phone] Reason for Visit * Reason Comments Med Change Request Encounter Details Date Type Department Care Team ([facility] st Contact Info) Description 01/08/2024 Refill [facility] 230 [place], [place] [phone] Corin Doyle MD [address] [place], [place] [phone] Social History Tobacco Use Types Packs/Day Years [...] Description 07/01/2025 3:30 PM EST Medication Management [facility] [address] [place] [address] Sam Peace, PharmD [address] [place] [address] documented as of this encounter Visit Diagnoses Not on filedocumented in this encounter Additional Health Concerns Assessment Noted Time PHQ-9 Depression Total Score: 0 11/24/19 23 3:58 PM EDT documented as of this encounter Care Teams Prosthodontist/Owner Relationship Specialty Start Date End Date Corin Doyle MD [address] [place] [address] PCP - General Family Medicine 07/18/18 Sam Peace, PharmD [address] [place] [address] Pharmacist Pharmacy 03/06/25 Danay Carmen Turning Sander OperatorTextile Machinery Instructor 12/09/23 Danay Carmen Turning Sander OperatorTextile Machinery Instructor 08/27/24 documented as of this encounter
--- OUTSIDE RECORDS SUMMARY | 2025-05-08 18:51 | XMS_ITS | Encounter Summary ---
Author Organization [employer] Address [address] [facility] [address] 7t [place] [address] Care Team Providers Care Styrene Dehydration Reactor Operator Name Role Phone Corin Doyle MD Primary Care Provider Sam Peace PharmD Unavailable [phone] Reason for Visit * Reason Onset Date Comments Med Refill 12/13/2023 Encounter Details Date Type Department Care Team (Late st Contact Info) Description 12/13/2023 Refill [facility] [address] [place] [address] Corin Doyle MD [address] [place] [address] Social History Tobacco Use Types Packs/Day Years [...] Description 07/01/2025 3:30 PM EST Medication Management [facility] [address] [place] [address] Sam Peace, PharmD [address] [place] [address] documented as of this encounter Visit Diagnoses Not on filedocumented in this encounter Additional Health Concerns Assessment Noted Time PHQ-9 Depression Total Score: 0 11/24/19 23 3:58 PM EDT documented as of this encounter Care Teams Styrene Dehydration Reactor Operator Relationship Specialty Start Date End Date Corin Doyle MD [address] [place] [address] PCP - General Family Medicine 07/18/18 Sam Peace, PharmD [address] [place] [address] Pharmacist Pharmacy 03/06/25 Danay Carmen News PhotographerMeter/Relay Craftsman 12/09/23 Danay Carmen News PhotographerMeter/Relay Craftsman 08/27/24 documented as of this encounter
--- OUTSIDE RECORDS SUMMARY | 2025-05-08 18:51 | XMS_ITS | Encounter Summary ---
Author Organization [employer] Address [address] [facility] [address] 7t [place] [address] Care Team Providers Care Waste Oil Pumper Name Role Phone Corin Doyle MD Primary Care Provider [phone] Sam Peace PharmD Unavailable [phone] Encounter Details Date Type Department Care Team ([facility] st Contact Info) Description 01/01/2025 Orders Only [facility] MED[facility]INE [address] [place], [place] [phone] Corin Doyle MD [address] [place] [address] Social History Tobacco Use Types Packs/Day Years [...] Description 07/01/2025 3:30 PM EST Medication Management [facility] MEDICINE [address] [place] [address] Sam Peace, PharmD [address] [place] [address] documented as of this encounter Visit Diagnoses Not on filedocumented in this encounter Additional Health Concerns Assessment Noted Time PHQ-9 Depression Total Score: 0 08/14/19 3:31 PM EST documented as of this encounter Care Teams Waste Oil Pumper Relationship Specialty Start Date End Date Corin Doyle MD [address] [place] [address] PCP - General Family Medicine 07/18/18 Sam Peace, PharmD [address] [place] [address] Pharmacist Pharmacy 03/06/25 Danay Carmen Conveyor Belt InstallerPrint Inspector 12/09/23 Danay Carmen Conveyor Belt InstallerPrint Inspector 08/27/24 documented as of this encounter
--- OUTSIDE RECORDS SUMMARY | 2025-05-08 18:52 | XMS_ITS | Encounter Summary ---
Author Organization [employer] Address [address] [facility] [address] 7t [place] [address] Care Team Providers Care Netbackup Engineer Name Role Phone Corin Doyle MD Primary Care Provider [phone] Sam Peace PharmD Unavailable [phone] Reason for Visit * Reason Onset Date Comments Med Refill 11/14/2023 Encounter Details Date Type Department Care Team (Late st Contact Info) Description 11/14/2023 Refill [facility] [address] [place] [address] Corin Doyle MD [address] [place] [address] Rash Social History Tobacco Use Types Packs/Day [...] Description 07/01/2025 3:30 PM EST Medication Management [facility] [address] [place] [address] Sam Peace, PharmD [address] [place] [address] documented as of this encounter Visit Diagnoses Diagnosis Rash Rash and other nonspecific skin eruption documented in this encounter Additional Health Concerns Assessment Noted Time PHQ-9 Depression Total Score: 0 11/24/19 23 3:58 PM EDT documented as of this encounter Care Teams Netbackup Engineer Relationship Specialty Start Date End Date Corin Doyle MD [address] [place] [address] PCP - General Family Medicine 07/18/18 Sam Peace, PharmD [address] [place] [address] Pharmacist Pharmacy 03/06/25 Danay Carmen Batter OutWind Turbine Controls Engineer 12/09/23 Danay Carmen Batter OutWind Turbine Controls Engineer 08/27/24 documented as of this encounter
--- OUTSIDE RECORDS SUMMARY | 2025-05-08 18:52 | XMS_ITS | Encounter Summary ---
Author Organization [employer] Address [address] [facility] [address] 7t [place] [address] Care Team Providers Care Remelt Worker Name Role Phone Corin Doyle MD Primary Care Provider [phone] Sam Peace PharmD Unavailable [phone] Reason for Visit * Reason Onset Date Comments Nurse Triage 05/25/2024 Encounter Details Date Type Department Care Team ([facility] st Contact Info) Description 05/25/2024 Telephone [facility] MEDICINE 230 [place] [address] Corin Doyle MD [address] [place] [address] Nurse Triage Social History Tobacco Use Types [...] now. RN advises pt to call [facility] back when she is discharged in [...] Description 07/01/2025 3:30 PM EST Medication Management [facility] [address] [place] [address] Sam Peace, PharmD [address] [place] [address] documented as of this encounter Visit Diagnoses Not on filedocumented in this encounter Additional Health Concerns Assessment Noted Time PHQ-9 Depression Total Score: 0 11/24/19 23 3:58 PM EDT documented as of this encounter Care Teams Remelt Worker Relationship Specialty Start Date End Date Corin Doyle MD [address] [place] [address] PCP - General Family Medicine 07/18/18 Sam Peace, ConchisD [address] [place] [address] Pharmacist Pharmacy 03/06/25 Danay Carmen Partition SetterSoftware Computer Specialist 12/09/23 Danay Carmen Partition SetterSoftware Computer Specialist 08/27/24 documented as of this encounter
--- OUTSIDE RECORDS SUMMARY | 2025-05-08 18:52 | XMS_ITS | Encounter Summary ---
Author Organization [employer] Address [address] [facility] [address] 7t [place] [address] Care Team Providers Care Food And Beverage Cashier Name Role Phone Corin Doyle MD Primary Care Provider [phone] Sam Peace PharmD Unavailable [phone] Encounter Details Date Type Department Care Team ([facility] st Contact Info) Description 08/16/2023 Orders Only [facility] 230 [place], [place] [phone] Eddie Guerrero MD 230 [place], [place] [phone] Social History Tobacco Use Types Packs/Day Years [...] Description 07/01/2025 3:30 PM EST Medication Management [facility] [address] [place] [address] Sam Peace, PharmD 230 [place] [address] documented as of this encounter Visit Diagnoses Not on filedocumented in this encounter Additional Health Concerns Assessment Noted Time PHQ-9 Depression Total Score: 0 11/24/19 23 3:58 PM EDT documented as of this encounter Care Teams Food And Beverage Cashier Relationship Specialty Start Date End Date Corin Doyle MD [address] [place] [address] PCP - General Family Medicine 07/18/18 Sam Peace, PharmD [address] [place] [address] Pharmacist Pharmacy 03/06/25 Danay Carmen Trade FacilitatorLift Truck Mechanic 12/09/23 Danay Carmen Trade FacilitatorLift Truck Mechanic 08/27/24 documented as of this encounter
--- OUTSIDE RECORDS SUMMARY | 2025-05-08 18:52 | XMS_ITS | Encounter Summary ---
Author Organization [employer] Address [address] 7t [place] [address] Care Team Providers Care Silverware Cleaner Name Role Phone Corin Doyle MD Primary Care Provider [phone] Sam Peace PharmD Unavailable [phone] Reason for Visit * Reason Comments Med Refill Encounter Details Date Type Department Care Team ([facility] st Contact Info) Description 11/07/2023 Refill [facility] [address] [place], [place] [phone] Eddie Guerrero MD [address] [place], [place] [phone] Social History Tobacco Use Types Packs/Day Years [...] 3:30 PM EST Medication Management [facility] [address] [place] [address] Sam Peace, PharmD [address] [place] [address] documented as of this encounter Visit Diagnoses Not on filedocumented in this encounter Additional Health Concerns Assessment Noted Time PHQ-9 Depression Total Score: 0 11/24/19 23 3:58 PM EDT documented as of this encounter Care Teams Silverware Cleaner Relationship Specialty Start Date End Date Corin Doyle MD [address] [place] [address] PCP - General Family Medicine 07/18/18 Sam Peace, PharmD [address] [place] [address] Pharmacist Pharmacy 03/06/25 Danay Carmen Route InspectorMixing Plant Dumper 12/09/23 Danay Carmen Route InspectorMixing Plant Dumper 08/27/24 documented as of this encounter
--- OUTSIDE RECORDS SUMMARY | 2025-05-08 18:52 | XMS_ITS | Encounter Summary ---
Author Organization [employer] Address [address] 7t [place] [address] Care Team Providers Care Truck Sales Representative Name Role Phone Corin Doyle MD Primary Care Provider [phone] Sam Peace PharmD Unavailable [phone] Encounter Details Date Type Department Care Team ([facility] Contact Info) Description 04/09/2025 Results Follow-Up [facility] MED[facility]INE 230 [place] [address] Karli Wells CNM [address] [place] [address] Pap Smear, BI US Breast Limited Bilateral Social History Tobacco Use Types Packs/Day Years [...] Miscellaneous Notes * Telephone Encounter - Milly Alvarez RN - 05/08/2025 3:47 PM EDT TC placed to the pt to inform of the results below as stated by Karli Wells. Pt was advised that there were no worrisome findings on the breast imaging. Pt was instructed to wear a supportive bra and decrease caffeine intake. Pt was instructed that if pain persists to inform the office and that Karli will inform the pt about upcoming pelvic US results. Pt also given recommendation that vaginal estrogen ca be used to help with pain if no worrisome findings on the pelvic US. Pt stated understanding and had no further questions at this time. ----- Message from Karli Wells sent at 05/08/2025 3:32 PM EDT ----- Please let Janelle know no worrisome findings on breast imaging. Wear supportive bra, decrease caffeine intake. Let me know if pain persists or other breast symptoms noted. She has pelvic ultrasound next month. I will be in touch with results. We can consider vaginal estrogen to help with pain with sex if no worrisome findings on pelvic ultrasound. Thanks! ----- Message ----- From: Arianna Fitzgerald Results In Sent: 05/08/2025 3:00 PM EDT To: Karli Wells CNM * Result Encounter Note - Karli Wells CNM - 05/08/2025 3:32 PM EDT Please let Janelle know no worrisome findings on breast imaging. Wear supportive bra, decrease caffeine intake. Let me know if pain persists or other breast symptoms noted. She has pelvic ultrasound next month. I will be in touch with results. We can consider vaginal estrogen to help with pain with sex if no worrisome findings on pelvic ultrasound. Thanks! documented in this encounter Plan of Treatment Upcoming Encounters Date Type Department Care Team (Late st Contact Info) Description 07/01/2025 3:30 PM EST Medication Management [facility] MEDICINE 230 [place] [address] Sma Peace, PharmD 230 [place] [address] documented as of this encounter Visit Diagnoses Not on filedocumented in this encounter Additional Health Concerns Assessment Noted Time PHQ-9 Depression Total Score: 0 08/14/19 3:31 PM EST documented as of this encounter Care Teams Truck Sales Representative Relationship Specialty Start Date End Date Corin Doyle MD [address] [place] [address] PCP - General Family Medicine 07/18/18 Sam Peace, PharmD [address] [place] [address] Pharmacist Pharmacy 03/06/25 Danay Carmen Pharmacy Informatics SpecialistExterminator Termite 12/09/23 Danay Carmen Pharmacy Informatics SpecialistExterminator Termite 08/27/24 documented as of this encounter
--- OUTSIDE RECORDS SUMMARY | 2025-05-08 18:52 | XMS_ITS | Encounter Summary ---
Author Organization [employer] Address [address] [facility] 7t [place] [address] Care Team Providers Care Channel Turner Name Role Phone Corin Doyle MD Primary Care Provider [phone] Sam Peace PharmD Unavailable [phone] Reason for Visit * Reason Onset Date Comments Med Refill 01/30/2025 Encounter Details Date Type Department Care Team (Late st Contact Info) Description 01/30/2025 Refill [facility] MEDICINE 230 [place] [address] Corin Doyle MD 230 [place] [address] Social History Tobacco Use Types Packs/Day Years [...] Description 07/01/2025 3:30 PM EST Medication Management [facility] MEDICINE [address] [place] [address] Sam Peace, PharmD [address] [place] [address] documented as of this encounter Visit Diagnoses Not on filedocumented in this encounter Additional Health Concerns Assessment Noted Time PHQ-9 Depression Total Score: 0 08/14/19 25 3:31 PM EST documented as of this encounter Care Teams Channel Turner Relationship Specialty Start Date End Date Corin Doyle MD [address] [place] [address] PCP - General Family Medicine 07/18/18 Sam Pecae, PharmD [address] [place] [address] Pharmacist Pharmacy 03/06/25 Danay Carmen Architectural Design ProfessorProduction Machine Operator 12/09/23 Danay Carmen Architectural Design ProfessorProduction Machine Operator 08/27/24 documented as of this encounter
--- OUTSIDE RECORDS SUMMARY | 2025-05-08 18:52 | XMS_ITS | Encounter Summary ---
Author Organization [employer] Address [address] [facility] 7t [place] [address] Care Team Providers Care Engine Dynamometer Tester Name Role Phone Corin Doyle MD Primary Care Provider [phone] Sam Peace PharmD Unavailable [phone] Reason for Visit * Reason Onset Date Comments Med Refill 03/13/2025 Encounter Details Date Type Department Care Team (Late st Contact Info) Description 03/13/2025 Refill [facility] 230 [place] [address] Corin Doyle MD 230 [place] [address] Social History Tobacco Use Types Packs/Day Years [...] Description 07/01/2025 3:30 PM EST Medication Management [facility] [address] [place] [address] Sam Peace, PharmD [address] [place] [address] documented as of this encounter Visit Diagnoses Not on filedocumented in this encounter Additional Health Concerns Assessment Noted Time PHQ-9 Depression Total Score: 0 08/14/19 25 3:31 PM EST documented as of this encounter Care Teams Engine Dynamometer Tester Relationship Specialty Start Date End Date Corin Doyle MD [address] [place] [address] PCP - General Family Medicine 07/18/18 Sam Peace, PharmD [address] [place] [address] Pharmacist Pharmacy 03/06/25 Danay Carmen Print And Pattern DesignerWood Hacker 12/09/23 Danay Carmen Print And Pattern DesignerWood Hacker 08/27/24 documented as of this encounter
--- OUTSIDE RECORDS SUMMARY | 2025-05-08 18:52 | XMS_ITS | Encounter Summary ---
Author Organization [employer] Address [address] 7t [place] [address] Care Team Providers Care Hook Puller Name Role Phone Corin Doyle MD Primary Care Provider [phone] Sam Peace PharmD Unavailable [phone] Reason for Visit * Reason Onset Date Comments Med Refill 04/20/2024 Encounter Details Date Type Department Care Team (Late st Contact Info) Description 04/20/2024 Refill [facility] 230 [place] [address] Corin Doyle MD 230 [place] [address] Social History Tobacco Use Types Packs/Day Years [...] [facility] [address] [place] [address] Sam Peace, PharmD 230 [place] [address] documented as of this encounter Visit Diagnoses Not on filedocumented in this encounter Additional Health Concerns Assessment Noted Time PHQ-9 Depression Total Score: 0 11/24/19 23 3:58 PM EDT documented as of this encounter Care Teams Hook Puller Relationship Specialty Start Date End Date Corin Doyle MD [address] [place] [phone] PCP - General Family Medicine 07/18/18 Sam Peace, PharmD [address] [place] [address] Pharmacist Pharmacy 03/06/25 Danay Carmen Tool SmithTelecommunications Operator 12/09/23 Danay Carmen Tool SmithTelecommunications Operator 08/27/24 documented as of this encounter
--- OUTSIDE RECORDS SUMMARY | 2025-05-08 18:52 | XMS_ITS | Encounter Summary ---
Author Organization [facility] Address [address] [place] [address] 7 [place] [address] Care Team Providers Care Domestic Maid Name Role Phone Corin Doyle MD Primary Care Provider Sam Peace PharmD Unavailable [phone] Encounter Details Date Type Department Care Team (Latest Contact Info) Description 11/25/2021 Abstract [facility] Dental, Provider, DDS Social History [...] 3:30 PM EST Medication Management [facility] 230 [place] [address] Sam Peace, PharmD 230 [place] [address] documented as of this encounter Visit Diagnoses Not on filedocumented in this encounter Care Teams Domestic Maid Relationship Specialty Start Date End Date Corin Doyle MD 230 [place] [address] PCP - General Family Medicine 07/18/18 Sam Peace, PharmD [address] [place] [address] Pharmacist Pharmacy 03/06/25 Danay Carmen Crusher Loader OperatorAccounts Payable Technician 12/09/23 Danay Carmen Crusher Loader OperatorAccounts Payable Technician 08/27/24 documented as of this encounter
--- OUTSIDE RECORDS SUMMARY | 2025-05-08 18:52 | XMS_ITS | Encounter Summary ---
Author Organization [employer] Address [address] 7t [place] [address] Care Team Providers Care Embossing Machine Operator Name Role Phone Corin Doyle MD Primary Care Provider [phone] aSm Peace PharmD Unavailable [phone] Reason for Visit * Reason Onset Date Comments Med Refill 11/01/2023 Encounter Details Date Type Department Care Team (Late st Contact Info) Description 11/01/2023 Refill [facility] MED[facility] 230 [place] [address] Corin Doyle MD 230 [place] [address] Social History Tobacco Use Types Packs/Day Years [...] Description 07/01/2025 3:30 PM EST Medication Management [facility] [address] [place] [phone] Sam Peace, PharmD 230 [place] [address] documented as of this encounter Visit Diagnoses Not on filedocumented in this encounter Additional Health Concerns Assessment Noted Time PHQ-9 Depression Total Score: 0 11/24/19 23 3:58 PM EDT documented as of this encounter Care Teams Embossing Machine Operator Relationship Specialty Start Date End Date Corin Doyle MD [address] [place] [address] PCP - General Family Medicine 07/18/18 Sam Peace, PharmD [address] [place] [address] Pharmacist Pharmacy 03/06/25 Danay Carmen Beauty School InstructorCloud Engineer 12/09/23 Danay Carmen Beauty School InstructorCloud Engineer 08/27/24 documented as of this encounter
--- OUTSIDE RECORDS SUMMARY | 2025-05-08 18:52 | XMS_ITS | Encounter Summary ---
Author Organization [employer] Address [address] 7t [place] [address] Care Team Providers Care Mainframe Systems Programmer Name Role Phone Corin Doyle MD Primary Care Provider [phone] Sam Peace PharmD Unavailable [phone] Reason for Visit * Reason Onset Date Comments Med Refill 03/29/2024 Encounter Details Date Type Department Care Team (Late st Contact Info) Description 03/29/2024 Refill [facility] MEDICINE 230 [place] [address] Corin Doyle MD 230 [place] [address] Social History Tobacco Use Types Packs/Day Years [...] Description 07/01/2025 3:30 PM EST Medication Management [facility] MEDICINE [address] [place] [address] Sam Peace, PharmD 230 [place] [address] documented as of this encounter Visit Diagnoses Not on filedocumented in this encounter Additional Health Concerns Assessment Noted Time PHQ-9 Depression Total Score: 0 11/24/19 23 3:58 PM EDT documented as of this encounter Care Teams Mainframe Systems Programmer Relationship Specialty Start Date End Date Corin Doyle MD [address] [place] [address] PCP - General Family Medicine 07/18/18 Sam Peace, PharmD [address] [place] [phone] Pharmacist Pharmacy 03/06/25 Danay Carmen Architecture InternCage Fighter 12/09/23 Danay Carmen Architecture InternCage Fighter 08/27/24 documented as of this encounter
--- OUTSIDE RECORDS SUMMARY | 2025-05-08 18:52 | XMS_ITS | Encounter Summary ---
Author Organization [employer] Address [address] 7t [place] [address] Care Team Providers Care Curriculum Development Coordinator Name Role Phone Corin Doyle MD Primary Care Provider [phone] Sam Peace PharmD Unavailable [phone] Encounter Details Date Type Department Care Team ([facility] st Contact Info) Description 05/04/2024 Orders Only [facility] MEDICINE 230 [place], [place] [phone] Corin Doyle MD 230 [place] [address] Primary hypertension (Primary Dx); Acquired hypothyroidism; Hypokalemia; [...] PM EST Medication Management [facility] MEDICINE [address] [place] [address] Sam Peace, PharmD [address] [place] [address] documented as of this encounter Procedures Procedure [...] 4:05 PM EST) Creatinine, Urine 312.90 mg/dL [facility] Microalbumin Urine 15.0 mg/L [facility] Microalbum Creatinine Ratio Ur 4.7 <30 ug/mg cr [facility] Comment:Albumin/Creatinine R atio Reference Ranges: Normal: < 30 ug/mg creatinine Microalbuminuria: 30 - 300 ug/mg creatinineClinical Albuminuria: > 300 ug/mg creatinine Urine 08/14/2024 4:05 PM EST 08/14/2024 5:43 PM EST Corin Doyle MD LAB URINE ORDERABLES Final Resul t [facility] [address] [place] [phone] * Hemoglobin A1c (08/14/2024 4:05 PM EST) Hemoglobin A1c 5.1 <6.0 % [facility] Comment:Hemoglobin A1C Refer ence Range Adults: 4.8 - 6.0 % Non diabetic: < 6.0 % Goal: < 7.0 %Additional Action Suggested: > 8.0 %Note: Hemoglobin A1c results are invalid for patients with abnormal amounts of HbF. Blood transfusions may impact the HbA1c concentration in the patient sample. Estimated Average Glucose 100 mg/dL [facility] Comment:eAG = Estimated ave rage glucose which is %A1C expressed asaverage glucose, using the formula of the Z0Y-MxabnlmAatxomg Glucose study (ADAG), Diabetes Care, Vol.31,#8,2007 Blood Venous blood specimen / Unknown 08/14/2024 4:05 PM EST 08/14/2024 5:33 PM EST Corin Doyle MD LAB BLOOD ORDERABLES Final Resul t Performing Organization Address City/[facility]/ZIP Co de Phone Number [facility] [address] [place] [phone] * Lipid Panel with Reflex to Direct LDL (08/14/2024 4:05 PM EST) Triglycerides 114 <150 mg/dL [facility] Comment:Desirable Triglyceri de: less than 150 mg/dLBorderline High Triglyceride 150-199 mg/dLHigh Triglyceride: 200-499 mg/dLVery High Triglyceride: greater than or equal to 5OO mg/dL Cholesterol 146 <200 mg/dL [facility] Comment:Desirable Cholestero l: less than 200 mg/dLBorderline High Cholesterol: 200-239 mg/dLHigh Cholesterol: greater than 239 mg/dL LDL Cholesterol Calculated 83 <100 mg/dL [facility] Comment:Desirable LDL: less than 100 mg/dLNear Optimal/Above Optimal LDL: 110- 129 mg/dLBorderline High LDL: 130-159 mg/dLHigh LDL: 160-189 mg/dLVery High LDL: greater than or equal to 190 mg/dL HDL Cholesterol 41 >40 mg/dL [facility] Comment:Desirable HDL: great er than 40 mg/dL Note: This HDL assay may give artificially low results in patients with liver disease. Blood 08/14/2024 4:05 PM EST 08/14/2024 5:33 PM EST Corin Doyle MD LAB BLOOD ORDERABLES Final Resul t [facility] [address] [place] [address] [phone] * Magnesium (08/14/2024 4:05 PM EST) Magnesium 2.2 1.6 - 2.6 mg/dL [facility] Blood Venous blood specimen / Unknown 08/14/2024 4:05 PM EST 08/14/2024 5:33 PM EST us Corin Doyle MD LAB BLOOD ORDERABLES Final Resul t Performing Organization Address [facility] Co de Phone Number [facility] [address] [place] [phone] * Uric acid (08/14/2024 4:05 PM EST) Uric Acid 4.5 2.4 - 5.7 mg/dL [facility] Blood Venous blood specimen / Unknown 08/14/2024 4:05 PM EST 08/14/2024 5:33 PM EST us Corin Doyle MD LAB BLOOD ORDERABLES Final Resul t Performing Organization Address [facility] Co de Phone Number [facility] [address] [place] [phone] * TSH with Reflex to Free T4 (08/14/2024 4:05 PM EST) TSH reflex Free T4 3.48 0.32 - 4.0 uIU/mL [facility] Blood 08/14/2024 4:05 PM EST 08/14/2024 5:33 PM EST us Corin Doyle MD LAB BLOOD ORDERABLES Final Resul t Performing Organization Address [facility] Co de Phone Number [facility] [address] [place] [phone] * (ABNORMAL) Comprehensive Metabolic Panel (08/14/2024 4:05 PM EST) Sodium 143 135 - 145 mmol/L [facility] Potassium 3.1(L) 3.3 - 5.1 mmol/L [facility] Chloride 106 96 - 108 mmol/L [facility] Carbon Dioxide 30(H) 22 - 29 mmol/L [facility] Anion Gap 10(L) 12 - 20 [facility] Urea Nitrogen (BUN) 14 9 - 16 mg/dL [facility] Creatinine, Serum 0.70 0.5 - 1.4 mg/dL [facility] Estimated Glomerular Filt Rate >60 [facility] Comment:Chronic Kidney Disea se: Estimated GFR < 60 mL/min/1.00a5Erexdh Kidney Disease: Estimated GFR < 15 mL/min/1.73m2 Glucose 72 60 - 115 mg/dL [facility] Calcium 9.2 8.4 - 10.2 mg/dL [facility] Bilirubin, Total 0.2 0.0 - 1.0 mg/dL [facility] Aspartate Amino Transferase 21 5 - 31 U/L [facility] Alanine Aminotransferase 24 0 - 31 U/L [facility] Total Protein 7.7 6.5 - 8.0 g/dL [facility] Albumin Level 4.1 3.5 - 5.0 g/dL [facility] Alkaline Phosphatase 109 39 - 117 U/L [facility] Blood Venous blood specimen / Unknown 08/14/2024 4:05 PM EST 08/14/2024 5:33 PM EST us Corin Doyle MD LAB BLOOD ORDERABLES Final Resul t [facility] [address] [place] [phone] [phone] documented in this encounter Visit Diagnoses [...] documented as of this encounter Care Teams Curriculum Development Coordinator Relationship Specialty Start Date End Date Corin Doyle MD [address] [place] [address] PCP - General Family Medicine 07/18/18 Sam Peace, PharmD [address] [place] [address] Pharmacist Pharmacy 03/06/[address] Engineering TeacherWatermelon Harvesting Supervisor 12/09/[address] Engineering TeacherWatermelon Harvesting Supervisor 08/27/24 documented as of this encounter
--- OUTSIDE RECORDS SUMMARY | 2025-05-08 18:52 | XMS_ITS | Encounter Summary ---
Author Organization [employer] Address [address] [facility] 7t [place] [address] Care Team Providers Care Gravel Truck Driver Name Role Phone Corin Doyle MD Primary Care Provider [phone] Sam Peace PharmD Unavailable [phone] Reason for Visit * Reason Comments Med Refill Encounter Details Date Type Department Care Team ([facility] st Contact Info) Description 03/19/2025 Refill [facility] MEDICINE 230 [place], [place] [phone] Corin Doyle MD 230 [place] [address] Social History Tobacco Use Types Packs/Day Years [...] Description 07/01/2025 3:30 PM EST Medication Management [facility] MEDICINE [address] [place] [phone] Sam Peace, PharmD [address] [place] [address] documented as of this encounter Visit Diagnoses Not on filedocumented in this encounter Additional Health Concerns Assessment Noted Time PHQ-9 Depression Total Score: 0 08/14/19 3:31 PM EST documented as of this encounter Care Teams Gravel Truck Driver Relationship Specialty Start Date End Date Corin Doyle MD [address] [place] [address] PCP - General Family Medicine 07/18/18 Sam Peace, PharmD [address] [place] [address] Pharmacist Pharmacy 03/06/25 Danay Carmen Fishing Tool Technician Oil WellDivisional Storekeeper 12/09/23 Danay Carmen Fishing Tool Technician Oil WellDivisional Storekeeper 08/27/24 documented as of this encounter
--- OUTSIDE RECORDS SUMMARY | 2025-05-08 18:52 | XMS_ITS | Encounter Summary ---
Author Organization [employer] Address [address] 7t [place] [address] Care Team Providers Care Automatic Chief Name Role Phone Corin Doyle MD Primary Care Provider [phone] Sam Peace PharmD Unavailable [phone] Reason for Visit * Reason Onset Date Comments Letter Request 07/05/2022 I called jodi comer the pt's request for a letter for housing. She stated that she is requesting an apartment on a first floor, or one with elevator accessibility, due to her medical conditions. Encounter Details Date Type Department Care Team ([facility] Contact Info) Description 07/05/2022 Telephone [facility] [address] [place], [place] [phone] Corin Doyle MD [address] [place] [address] Letter Request (I called regarding the pt's [...] Upcoming Encounters Date Type Department Care Team ([facility] Contact Info) Description 07/01/2025 3:30 PM EST Medication Management [facility] MEDICINE [address] [place] [address] Sam Peace, PharmD [address] [place] [address] documented as of this encounter Visit Diagnoses Not on filedocumented in this encounter Care Teams Automatic Chief Relationship Specialty Start Date End Date Corin Doyle MD [address] [place] [address] PCP - General Family Medicine 07/18/18 Sam Peace, PharmD [address] [place] [address] Pharmacist Pharmacy 03/06/25 Danay Carmen Drawer In Plain LoomPolicy And Planning Manager 12/09/23 Danay Carmen Drawer In Plain LoomPolicy And Planning Manager 08/27/24 documented as of this encounter
--- OUTSIDE RECORDS SUMMARY | 2025-05-08 18:52 | XMS_ITS | Encounter Summary ---
Author Organization [employer] Address [address] [place] [address] Care Team Providers Care Segment Producer Name Role Phone Corin Doyle MD Primary Care Provider [phone] Sam Peace PharmD Unavailable Encounter Details Date Type Department Care Team ([facility] st Contact Info) Description 08/17/2024 Orders Only [facility] [address] [place], [place] [phone] Corin Doyle MD [address] [place] [address] Social History Tobacco Use Types Packs/Day Years [...] Description 07/01/2025 3:30 PM EST Medication Management [facility] [address] [place] [address] Sam Peace, PharmD [address] [place] [address] documented as of this encounter Visit Diagnoses Not on filedocumented in this encounter Additional Health Concerns Assessment Noted Time PHQ-9 Depression Total Score: 0 08/14/19 3:31 PM EST documented as of this encounter Care Teams Segment Producer Relationship Specialty Start Date End Date Corin Doyle MD [address] [place] [address] PCP - General Family Medicine 07/18/18 Sam Peace, PharmD [address] [place] [phone] Pharmacist Pharmacy 03/06/25 Danay Carmen School Psychology ProfessorPrinting Manager 12/09/23 Danay Carmen School Psychology ProfessorPrinting Manager 08/27/24 documented as of this encounter
--- OUTSIDE RECORDS SUMMARY | 2025-05-08 18:52 | XMS_ITS | Encounter Summary ---
Author Organization [employer] Address [address] [place] [address] Care Team Providers Care Ticket Attendant Name Role Phone Corin Doyle MD Primary Care Provider [phone] Sam Peace PharmD Unavailable [phone] Encounter Details Date Type Department Care Team ([facility] st Contact Info) Description 03/01/2025 Orders Only [facility] [address] [place], [place] [phone] Corin Doyle MD [address] [place] [address] Hypokalemia (Primary Dx) Social History Tobacco Use [...] 3:30 PM EST Medication Management [facility] [address] [place] [address] Sam Peace, PharmD [address] [place] [address] documented as of this encounter Procedures Procedure Name Priority Date/Time Associated Diagnosis Comments MAGNESIUM Routine 04/01/2025 3:26 PM EDT Hypokalemia BASIC METABOLIC PANEL Routine 04/01/2025 3:26 PM EDT Hypokalemia documented in this encounter Results * Magnesium (04/01/2025 3:26 PM EDT) Magnesium 2.1 1.6 - 2.6 mg/dL [facility] Blood Venous blood specimen / Unknown 04/01/2025 3:26 PM EDT 04/01/2025 4:08 PM EDT us Corin Doyle MD LAB BLOOD ORDERABLES Final Resul t [facility] [address] [place] [address] [phone] * (ABNORMAL) Basic Metabolic Panel (04/01/2025 3:26 PM EDT) Sodium 144 135 - 145 mmol/L [facility] Potassium 3.6 3.3 - 5.1 mmol/L [facility] Chloride 109(H) 96 - 108 mmol/L [facility] Carbon Dioxide 29 22 - 29 mmol/L [facility] Anion Gap 10(L) 12 - 20 [facility] Urea Nitrogen (BUN) 15 9 - 16 mg/dL [facility] Creatinine, Serum 0.81 0.5 - 1.4 mg/dL [facility] Estimated Glomerular Filt Rate >60 [facility] Comment:Chronic Kidney Disea se: Estimated GFR < 60 mL/min/[id number] Kidney Disease: Estimated GFR < 15 mL/min/1.73m2 Glucose 87 60 - 115 mg/dL [facility] Calcium 8.9 8.4 - 10.2 mg/dL [facility] Blood Venous blood specimen / Unknown 04/01/2025 3:26 PM EDT 04/01/2025 4:08 PM EDT us Corin Doyle MD LAB BLOOD ORDERABLES Final Resul t [facility] [address] [place] [address] [phone] documented in this encounter Visit Diagnoses Diagnosis Hypokalemia- Primary Hypopotassemia documented in this encounter Additional Health Concerns Assessment Noted Time PHQ-9 Depression Total Score: 0 08/14/19 25 3:31 PM EST documented as of this encounter Care Teams Ticket Attendant Relationship Specialty Start Date End Date Corin Doyle MD [address] [place] [address] PCP - General Family Medicine 07/18/18 Sam Peace, PharmD [address] [place] [phone] Pharmacist Pharmacy 03/06/25 Danay Carmen Circulation AssistantCenter Maker Hand 12/09/23 Danay Carmen Circulation AssistantCenter Maker Hand 08/27/24 documented as of this encounter
--- OUTSIDE RECORDS SUMMARY | 2025-05-08 18:52 | XMS_ITS | Encounter Summary ---
Author Organization [employer] Address [address] [facility] [address] [place] [address] Care Team Providers Care Creative Art Therapist Name Role Phone Corin Doyle MD Primary Care Provider [phone] Sam Peace PharmD Unavailable [phone] Reason for Visit * Reason Onset Date Comments Med Refill 03/01/2025 Encounter Details Date Type Department Care Team (Late st Contact Info) Description 03/01/2025 Refill [facility] [address] [place] [address] Corin Doyle MD [address] [place] [address] Social History Tobacco Use Types Packs/Day Years [...] Medication Management [facility] [address] [place] [address] Sam Peace, PharmD [address] [place] [address] documented as of this encounter Visit Diagnoses Not on filedocumented in this encounter Additional Health Concerns Assessment Noted Time PHQ-9 Depression Total Score: 0 08/14/19 25 3:31 PM EST documented as of this encounter Care Teams Creative Art Therapist Relationship Specialty Start Date End Date Corin Doyle MD [address] [place] [address] PCP - General Family Medicine 07/18/18 Sam Peace, PharmD [address] [place] [phone] Pharmacist Pharmacy 03/06/25 Danay Carmen Cart PusherHot Top Liner 12/09/23 Danay Carmen Cart PusherHot Top Liner 08/27/24 documented as of this encounter
--- OUTSIDE RECORDS SUMMARY | 2025-05-08 18:52 | XMS_ITS | Encounter Summary ---
Author Organization [employer] Address [address] [place] [address] Care Team Providers Care Marketing Representative Name Role Phone Corin Doyle MD Primary Care Provider [phone] Sam Peace PharmD Unavailable [phone] Encounter Details Date Type Department Care Team (Latest Contact Info) Description 05/06/2025 Travel Social History Tobacco Use Types Packs/Day [...] PM EST Medication Management [facility] [address] [place] [address] Sam Peace, PharmD [address] [place] [address] documented as of this encounter Visit Diagnoses Not on filedocumented in this encounter Additional Health Concerns Assessment Noted Time PHQ-9 Depression Total Score: 0 08/14/19 3:31 PM EST documented as of this encounter Care Teams Marketing Representative Relationship Specialty Start Date End Date Corin Doyle MD [address] [place] [address] PCP - General Family Medicine 07/18/18 Sam Peace, PharmD [address] [place] [phone] Pharmacist Pharmacy 03/06/25 Danay Carmen Cupola RepairerCattle Broker 12/09/23 Danay Carmen Cupola RepairerCattle Broker 08/27/24 documented as of this encounter
--- OUTSIDE RECORDS SUMMARY | 2025-05-08 18:52 | XMS_ITS | Encounter Summary ---
Author Organization [employer] Address [address] [place] [address] Care Team Providers Care Joint Yarner Name Role Phone Corin Doyle MD Primary Care Provider [phone] Sam Peace PharmD Unavailable [phone] Reason for Visit * Reason Onset Date Comments Med Refill 01/25/2024 Encounter Details Date Type Department Care Team (Late st Contact Info) Description 01/25/2024 Refill [facility] [address] [place] [address] Corin Doyle MD [address] [place] [address] Social History Tobacco Use Types Packs/Day Years [...] Description 07/01/2025 3:30 PM EST Medication Management [facility] [address] [place] [address] Sam Peace, PharmD [address] [place] [address] documented as of this encounter Visit Diagnoses Not on filedocumented in this encounter Additional Health Concerns Assessment Noted Time PHQ-9 Depression Total Score: 0 11/24/19 23 3:58 PM EDT documented as of this encounter Care Teams Joint Yarner Relationship Specialty Start Date End Date Corin Doyle MD [address] [place] [address] PCP - General Family Medicine 07/18/18 Sam Peace, PharmD [address] [place] [address] Pharmacist Pharmacy 03/06/25 Danay Carmen Women SpecialistPayroll Technician 12/09/23 Danay Carmen Women SpecialistPayroll Technician 08/27/24 documented as of this encounter
--- OUTSIDE RECORDS SUMMARY | 2025-05-08 18:52 | XMS_ITS | Encounter Summary ---
Author Organization [employer] Address [address] [facility] 7t [place] [address] Care Team Providers Care Wood Window And Door Craftsman Name Role Phone Corin Doyle MD Primary Care Provider Sam Peace PharmD Unavailable [phone] Reason for Visit * Reason Onset Date Comments chart prep 05/03/2025 Encounter Details Date Type Department Care Team ([facility] st Contact Info) Description 05/03/2025 Telephone [facility] [address] [place] [address] Corin Doyle MD [address] [place] [address] chart prep Social History Tobacco Use Types [...] Telephone Encounter - Feliciano Luna [place] - 05/03/2025 3:54 PM EDT Chart Prep Labs: done Images: done Referrals: appointment pending Radiology Pelvic US schedule for 06/03/25 Radiology Breast schedule for 05/08/25 Vascular surgent appointment pending Vaccines due: Covid and Flu Screenings: colonoscopy Overdue care gaps: Not applicable documented in this encounter Plan of Treatment Upcoming Encounters Date Type Department Care Team (Late st Contact Info) Description 07/01/2025 3:30 PM EST Medication Management [facility] [address] [place] [address] Sam Peace, PharmD [address] [place] [address] documented as of this encounter Visit Diagnoses Not on filedocumented in this encounter Additional Health Concerns Assessment Noted Time PHQ-9 Depression Total Score: 0 08/14/19 3:31 PM EST documented as of this encounter Care Teams Wood Window And Door Craftsman Relationship Specialty Start Date End Date Corin Doyle MD [address] [place] [address] PCP - General Family Medicine 07/18/18 Sam Peace, PharmD [address] [place] [address] Pharmacist Pharmacy 03/06/25 Danay Carmen Principal Java DeveloperDirector Clinical Applications 12/09/23 Danay Carmen Principal Java DeveloperDirector Clinical Applications 08/27/24 documented as of this encounter
--- OUTSIDE RECORDS SUMMARY | 2025-05-08 18:52 | XMS_ITS | Clinical Summary ---
Author Organization [employer] Address [address] [facility] [address] [place] [address] Care Team Providers Care Conduit Worker Name Role Phone Corin Doyle MD Primary Care Provider [phone] Sam Peace PharmD Unavailable [phone] Allergies Active Allergy Reactions Criticality Noted Date [...] day 18 g 3 025 2025 Active traMADol (Ultram) 50 MG tabletIndicatio ns:Lumbar sprain, initial encounter Take 1 tablet (50 mg) by mouth every 12 (twelve) hours if needed for severe pain. 14 tablet 025 Active cholecalciferol (D3-1000) 25 MCG (1000 UT) capsule TOME OLE CAPSULA TODOS LOS NAM 90 capsule 3 Active furosemide (Lasix) 20 MG tablet Take 1 tablet (20 mg) by mouth every other day. 45 tablet 3 025 2025 Active Acetaminophen (Mapap) 500 MG capsuleIndicati ons:Acute hip pain, right TAKE 1-2 CAPSULE BY ORAL ROUTE EVERY 6 HOURS NEEDED 30 capsule 025 Active hydrocortisone 2.5 % creamIndication s:Rash APPLY TOPICALLY TWICE A DAY 28 g 1 025 Active Lidocaine 4 % gel APPLY TO THE AFFECTED AREA (HIP AND BACK) ONCE OR TWICE A DAY NEEDED FOR PAIN 30 g 025 Active losartan (Cozaar) 50 MG tabletIndicatio ns:Primary hypertension Take 1 tablet by mouth daily with 25 mg tablet (TDD=75 mg day) 90 tablet 3 025 Active losartan (Cozaar) 25 MG tabletIndicatio ns:Primary hypertension Take 1 tablet by mouth daily with 50 mg tablet (TDD=75 mg day) 90 tablet 3 025 Active potassium chloride CR (Klor-Con M20) 20 MEQ ER tablet TAKE 1 TABLET BY MOUTH DAILY WHEN DIRECTED BY [facility] [employer]ER CREWMEMBER. DO NOT CRUSH OR CHEW. 30 tablet 025 Active cyclobenzaprine (Flexeril) 10 MG tablet TAKE 1 TABLET BY MOUTH AT BEDTIME NEEDED FOR MUSCLE SPASMS. 30 tablet 025 Active albuterol (2.5 MG/3ML) 0.083% nebulizer solutionIndicat ions:Moderate persistent asthma with acute exacerbation Take 3 mL (2.5 mg) by nebulization every 4 (four) hours if needed for wheezing. 75 mL 3 Active Tirzepatide-Artemio ght Management (Zepbound) 2.5 MG/0.5ML solution auto-injector Inject 0.5 mL (2.5 mg) under the skin 1 (one) time per week. 2 mL 11 Active phenazopyridine (Pyridium) 100 MG tablet Take 1 tablet (100 mg) by mouth if needed in the morning, at noon, and at bedtime for bladder spasms for up to 3 days. 10 tablet 2024 Active albuterol (2.5 MG/3ML) 0.083% nebulizer solutionIndicat ions:Moderate persistent asthma with acute exacerbation Take 3 mL (2.5 mg) by nebulization every 4 (four) hours if needed for wheezing. 75 mL 3 2024 Discontinued(R eorder (will not trigger notification to Pharmacy)) Tirzepatide-Artemio ght Management (Zepbound) 2.5 MG/0.5ML solution auto-injector Inject 0.5 mL (2.5 mg) under the skin 1 (one) time per week. 2 mL 11 025 2024 Discontinued(R eorder (will not trigger notification to Pharmacy)) potassium chloride CR (Klor-Con M20) 20 MEQ ER tablet TAKE 1 TABLET BY MOUTH DAILY WHEN DIRECTED BY [facility] [employer]. DO NOT CRUSH OR CHEW. 30 tablet 2024 Discontinued cyclobenzaprine (Flexeril) 10 MG tablet TAKE 1 TABLET BY MOUTH AT BEDTIME NEEDED FOR MUSCLE SPASMS. 30 tablet 2024 Discontinued phenazopyridine (Pyridium) 200 MG tablet Take 1 tablet (200 mg) by mouth if needed in the morning, at noon, and at bedtime for bladder spasms for up to 2 days. Take with food 6 tablet 2024 Active Problems Problem Noted Date Diagnosed [...] -Last exacerbation in Feb 2022. [place] [facility] Rx prednisone and azithromycin. Negative COVID -Followed by allergy / evaluation specialist -Continue Symicort -Continue montelukast -Continue albuterol neb and inhaler prn --Pt uses nebulizer treatment at home because her symptoms respond better and faster to nebulizer treatment Assessment & Plan (08/14/2023 2:52 PM EST): -Last exacerbation in Feb 2022. [place] [facility] prednisone and azithromycin. Negative COVID -Followed by allergy / evaluation specialist -Continue Symicort -Continue montelukast -Continue albuterol neb and inhaler prn --Pt uses nebulizer treatment at home because her symptoms respond better and faster to nebulizer treatment Assessment & Plan (11/23/2022 4:53 PM EDT): -Last exacerbation in Feb 2022. [place] [facility] Rx prednisone and azithromycin. Negative COVID -Followed by allergy / evaluation specialist -Continue Symicort -Continue montelukast -Continue albuterol neb and inhaler prn --Pt uses nebulizer treatment at home because her symptoms respond better and faster to nebulizer treatment Assessment & Plan (07/25/2022 1:55 PM EST): -Last exacerbation in Feb 2022. Se[place] [facility] Rx prednisone and azithromycin. Negative COVID -Followed by allergy / evaluation specialist -Continue Symicort -Continue montelukast -Continue albuterol neb and inhaler prn --Pt uses nebulizer treatment at home because her symptoms respond better and faster to nebulizer treatment Allergic rhinitis 12/06/2012 Assessment & Plan (01/02/2025 12:51 PM EDT): -Previously followed by Dr. Whitehead, allergy / evaluation specialist -Continue loratadine -Continue montelukast -Continue immunotherapy -Continue fluticasone nasal Assessment & Plan (08/14/2023 3:00 PM EST): -Previously followed by Dr. Whitehead, allergy / evaluation specialist -Continue loratadine -Continue montelukast -Continue immunotherapy -Continue fluticasone nasal Assessment & Plan (11/29/2022 7:45 AM EDT): -Previously followed by Dr. Whitehead, allergy / evaluation specialist -Continue loratadine -Continue montelukast -Continue immunotherapy -Continue fluticasone nasal Assessment & Plan (07/25/2022 2:06 PM EST): -Followed by Dr. 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 [address] [place] [address] Corin Doyle MD Moderate persistent asthma with acute exacerbation 05/06/2025 Travel 05/03/2025 Telephone [facility] [address] [place] [address] Corin Doyle MD chart prep 04/29/[address] [facility] [address] [place], [place] [phone] Corin Doyle MD Pre-visit Planning ([facility] unable to reach [facility] ) 04/29/2025 Travel 04/27/[address] [facility] [address] [place] [address] Corin Doyle MD 04/22/[address] [address] Corin Doyle MD 04/22/2025 Results Follow-Up [address] [address] Naomy Boland CNM Culture, Urine, Routine 04/15/2025 Orders Only [address] [address] Naomy Boland CNM Urinary frequency (Primary Dx) 04/15/2025 Results Follow-Up [address] [address] Naomy Boland CNM POCT urinalysis dipstick manually resulted, Culture, Urine, Routine, POCT Urine , Additional followed-up results: 2 04/11/2025 2:45 PM EDT Office Visit [address] [address] Naomy Boland CNM Urinary frequency (Primary Dx); Pelvic pain; Screening examination for venereal disease 04/11/2025 Travel 04/11/[address] [address] Corin Doyle MD Nurse Triage 04/09/2025 Results Follow-Up [address] [address] Naomy Boland CNM Pap Smear, BI US Breast Limited Bilateral 04/06/[address] [address] Corin Doyle MD 04/06/2025 Orders Only [address] [address] Corin Doyle MD Varicose veins of both lower extremities, unspecified whether complicated (Primary Dx) 04/02/2025 2:45 PM EDT Procedure Visit [facility] [address] [place] [address] Naomy Boland CNM Cervical cancer screening (Primary Dx); Breast pain, right; Unspecified dyspareunia; Breast cyst, left; Cervical polyp; Perimenopause 04/02/[address] [facility] [address] [place] [address] Naomy Boland CNM 04/02/2025 Travel 04/02/2025 Results Follow-Up [facility] [address] [place] [address] Corin Doyle MD Basic Metabolic Panel, Magnesium 04/01/[address] [facility] [address] [place] [address] Corin Doyle MD Primary hypertension (Primary Dx) 04/01/[address] [facility] [address] [place] [address] Corin Doyle MD 04/01/2025 Travel 04/01/[address] [facility] [address] [place] [address] Naomy Boland CNM chart prep 03/24/[address] [facility] [address] [facility] [place] [address] Corin Doyle MD 03/23/[address] [facility] [address] [facility] [place] [address] Corin Doyle MD 03/20/[address] [facility] [address] [place] [address] Gabriela López MD 03/20/[address] [facility] [address] [facility] [place] [address] Corin Doyle MD 03/19/[address] [facility] [address] [facility] [place] [address] Corin Doyle MD 03/13/[address] [facility] [address] [place] [address] Corin Doyle MD 03/06/[address] [facility] [address] [place] [address] Corin Doyle MD [facility] 03/01/2025 Results Follow-Up [facility] [address] [place] [address] Corin Doyle MD Basic Metabolic Panel 03/01/[address] [facility] [address] [place] [address] Corin Doyle MD Hypokalemia (Primary Dx) 03/01/[address] [facility] [place] [address] Corin Doyle MD 03/01/2025 Travel 03/01/[address] [facility] [place] [address] Corin Doyle MD 02/26/2025 Travel 02/24/[address] [facility] [address] Corin Doyle MD 02/15/2025 3:30 PM EDT Clinical Support [facility] [place] [address] Saranya Burt RN Primary hypertension 02/15/2025 Telephone [facility] [place] [address] Corin Doyle MD 02/15/2025 Travel 02/14/2025 Travel 02/11/2025 3:40 PM EDT Office Visit [facility] [address] Gabriela López MD Primary osteoarthritis of right knee (Primary Dx); Acute hip pain, right 02/11/2025 Travel 02/07/[address] [facility] [place] [address] Corin Doyle MD from Last 3 Months Immunizations Immunization Administration [...] Mass Index 36.05 05/06/2025 3:17 PM EDT Plan of Treatment Upcoming Encounters Date Type Department Care Team (Late st Contact Info) Description 07/01/2025 3:30 PM EST Medication Management [facility] [address] [place] [address] Sam Peace, PharmD [address] [place] [address] Health Maintenance Due Date Last Done Comments [...] Screening 08/14/2025 08/14/2024 Disability Screening 12/31/2025 12/31/2024 Zoster Vaccines (1 of 2) 01/31/2026 Family Planning (PISQ) 04/02/2026 04/02/2025 Tobacco Screening 05/06/2026 05/06/2025 Mammogram 05/08/2027 05/08/2025, 04/18, 01/26/2024, Additional history exists Cervical Cancer Screening 04/02/2028 HPV/Cotest 04/02/2028 04/02/2025, [...] Name Priority Date/Time Associated Diagnosis Comments BI US BREAST LIMITED BILATERAL Urgent 05/08/2025 1:57 PM EDT BI MAMMOGRAM DIAGNOSTIC TOMOSYNTHESIS BILATERAL Urgent 05/08/2025 1:30 PM EDT Breast pain, right Breast cyst, left CULTURE, URINE, ROUTINE Routine 04/19/2025 2:46 PM EDT Urinary frequency POCT , URINE Routine 04/11/2025 3:05 PM [...] Routine 08/14/2024 4:05 PM EST Primary hypertension HEPATITIS PANEL, GENERAL Routine 11/11/2023 8:41 AM [...] Recently Relevant to Health Maintenance Results * BI US Breast Limited Bilateral (05/08/2025 1:57 PM EDT) Anatomical Region Laterality Modality Breast Bilateral Ultrasound 05/08/2025 1:57 PM EDT Narrative 05/08/2025 2:59 PM EDT [facility] [address] [place], [place] [address] Ultrasound Report Signed Patient: Janelle León MR#: [id number] : 1975 Acct:[id number] Age/Sex: 50 / F ADM Date: 05/08/25 Loc: HO.MAMMO Attending Dr: Corin Doyle MD Ordering Physician: NAOMY BOLAND CNM Date of Service: 05/08/25 Procedure(s): US Breast BI Limited Mamm Only Accession Number(s): [id number] cc: NAOMY BOLAND CNM Reason for Exam: tender area with 1cm cystic mass right breast outer aspect 9 oclock EXAMINATION: MM DIAGNOSTIC DIGITAL BREAST TOMOSYNTHESIS, BILATERAL Limited bilateral ultrasound. CLINICAL INFORMATION: Bilateral breast pain. COMPARISON: Mammography: Comparison is made with relevant prior exams. TECHNIQUE: Digital breast mammography with tomosynthesis is performed in both the craniocaudal and mediolateral oblique views along with computer-aided detection (CAD). FINDINGS: The breasts are heterogeneously dense, which may obscure small masses. BB markers in the upper outer breasts bilaterally without underlying abnormal findings at site of breast pain. There are no significant masses, abnormal calcifications, or other abnormalities. Targeted color Doppler ultrasound scanning in the areas of patient's bilateral pain and physician felt lump right breast 8-10 o'clock demonstrates normal fibroglandular breast tissue. There is no sonographic abnormal finding. In the left breast from 2-4 o'clock demonstrates normal fibroglandular breast tissue. There is no sonographic abnormal finding. Results are provided to the patient at time of visit by the technologist. US/US Breast BI Limited Mamm Only IMPRESSION: No mammographic or sonographic abnormal finding to account for the patient's bilateral areas of breast pain and right breast palpable lump. Recommend clinical evaluation and follow-up. ASSESSMENT: BI-RADS Category 1: Negative RECOMMENDATION: 1 year F/U This patient's information was entered into a reminder system with a target due date for their next mammogram. Electronically signed by: Nadia Wade DO 05/08/2025 02:56 PM EDT RP Dictated By: Nadia Wade DO Signed By: <Electronically signed by Nadia Wade DO in OV> 05/08/25 1456 DD/ 1357 TD/TT: 05/08/25 1416 Detective Bureau Chief: Procedure Note Donotuseinterpreter, Image - 05/08/20[facility] [address] [place] [address] Ultrasound Report Signed Patient: Janelle León GMR#: [id number] : 1975Acct:[id number] Age/Sex: 50 / FADM Date: 05/08/25 Loc: HO.MAMMO Attending Dr: Corin Doyle MD Ordering Physician: NAOMY BOLAND CNM Date of Service: 05/08/25 Procedure(s): US Breast BI Limited Mamm Only Accession Number(s): [id number] cc: NAOMY BOLAND CNM Reason for Exam: tender area with 1cm cystic mass right breast outeraspect 9 oclock EXAMINATION: MM DIAGNOSTIC DIGITAL BREAST TOMOSYNTHESIS, BILATERAL Limited bilateral ultrasound. CLINICAL INFORMATION: Bilateral breast pain. COMPARISON: Mammography: Comparison is made with relevant prior exams. TECHNIQUE: Digital breast mammography with tomosynthesis is performed in both the craniocaudal and mediolateral oblique views along with computer-aided detection (CAD). FINDINGS: The breasts are heterogeneously dense, which may obscure small masses. BB markers in the upper outer breasts bilaterally without underlying abnormal findings at site of breast pain. There are no significant masses, abnormal calcifications, or other abnormalities. Targeted color Doppler ultrasound scanning in the areas of patient's bilateral pain and physician felt lump right breast 8-10 o'clock demonstrates normal fibroglandular breast tissue. There is no sonographic abnormal finding. In the left breast from 2-4 o'clock demonstrates normal fibroglandular breast tissue. There is no sonographic abnormal finding. Results are provided to the patient at time of visit by the technologist. US/US Breast BI Limited Mamm Only IMPRESSION: No mammographic or sonographic abnormal finding to account for the patient's bilateral areas of breast pain and right breast palpable lump. Recommend clinical evaluation and follow-up. ASSESSMENT: BI-RADS Category 1: Negative RECOMMENDATION: 1 year F/U This patient's information was entered into a reminder system with a target due date for their next mammogram. Electronically signed by: Nadia Wade DO 05/08/2025 02:56 PM EDT RP Dictated By: Nadia Wade DO Signed By: <Electronically signed by Nadia Wade DO in OV> 05/08/25 1456 DD/ 1357 TD/TT: 05/08/25 1416 Detective Bureau Chief: us Naomy Boland CNM IMG US PROCEDURES Final R esult * BI Mammogram Diagnostic Tomosynthesis Bilateral (05/08/2025 1:30 PM EDT) Anatomical Region Laterality Modality Breast Bilateral Mammography 05/08/2025 1:30 PM EDT Narrative 05/08/2025 2:59 PM EDT [facility] [address] [place] [address] Mammography Report Signed Patient: Janelle León MR#: [id number] : 1975 Acct:[id number] Age/Sex: 50 / F ADM Date: 05/08/25 Loc: HO.MAMMO Attending Dr: Corin Doyle MD Ordering Physician: NAOMY BOLAND CNM Results: 1 Negative Date of Service: 05/08/25 Follow Up: 1 Year From [facility] Mammogram Procedure(s): MM tomosynthesis diagnostic BI Accession Number(s): [id number] cc: NAOMY BOLAND CNM Reason For Exam: RT BR PAIN, LT BR CYST 2:00 EXAMINATION: MM DIAGNOSTIC DIGITAL BREAST TOMOSYNTHESIS, BILATERAL Limited bilateral ultrasound. CLINICAL INFORMATION: Bilateral breast pain. COMPARISON: Mammography: Comparison is made with relevant prior exams. TECHNIQUE: Digital breast mammography with tomosynthesis is performed in both the craniocaudal and mediolateral oblique views along with computer-aided detection (CAD). FINDINGS: The breasts are heterogeneously dense, which may obscure small masses. BB markers in the upper outer breasts bilaterally without underlying abnormal findings at site of breast pain. There are no significant masses, abnormal calcifications, or other abnormalities. Targeted color Doppler ultrasound scanning in the areas of patient's bilateral pain and physician felt lump right breast 8-10 o'clock demonstrates normal fibroglandular breast tissue. There is no sonographic abnormal finding. In the left breast from 2-4 o'clock demonstrates normal fibroglandular breast tissue. There is no sonographic abnormal finding. Results are provided to the patient at time of visit by the technologist. MM/MM tomosynthesis diagnostic BI IMPRESSION: No mammographic or sonographic abnormal finding to account for the patient's bilateral areas of breast pain and right breast palpable lump. Recommend clinical evaluation and follow-up. ASSESSMENT: BI-RADS Category 1: Negative RECOMMENDATION: 1 year F/U This patient's information was entered into a reminder system with a target due date for their next mammogram. Electronically signed by: Nadia Wade DO 05/08/2025 02:56 PM EDT Dictated By: Nadia Wade DO Signed By: <Electronically signed by Nadia Wade DO in OV> 05/08/25 1456 DD/ 1330 TD/TT: 05/08/25 1355 Detective Bureau Chief: Procedure Note Donotuseinterpreter, Image - 05/08/2025 [facility] [address] [place] [address] Mammography Report Signed Patient: Janelle León GMR#: [id number] : 1975Acct:[id number] Age/Sex: 50 / FADM Date: 05/08/25 Loc: [facility]I Attending Dr: Corin Doyle MD Ordering Physician: NAOMY BOLANDMResults: 1 Negative Date of Service: 05/08/25Follow Up: 1 Year From Orig inal Mammogram Procedure(s): MM tomosynthesis diagnostic BI Accession Number(s): [id number] cc: NAOMY BOLAND CNM Reason For Exam: RT BR PAIN, LT BR CYST 2:00 EXAMINATION: MM DIAGNOSTIC DIGITAL BREAST TOMOSYNTHESIS, BILATERAL Limited bilateral ultrasound. CLINICAL INFORMATION: Bilateral breast pain. COMPARISON: Mammography: Comparison is made with relevant prior exams. TECHNIQUE: Digital breast mammography with tomosynthesis is performed in both the craniocaudal and mediolateral oblique views along with computer-aided detection (CAD). FINDINGS: The breasts are heterogeneously dense, which may obscure small masses. BB markers in the upper outer breasts bilaterally without underlying abnormal findings at site of breast pain. There are no significant masses, abnormal calcifications, or other abnormalities. Targeted color Doppler ultrasound scanning in the areas of patient's bilateral pain and physician felt lump right breast 8-10 o'clock demonstrates normal fibroglandular breast tissue. There is no sonographic abnormal finding. In the left breast from 2-4 o'clock demonstrates normal fibroglandular breast tissue. There is no sonographic abnormal finding. Results are provided to the patient at time of visit by the technologist. MM/MM tomosynthesis diagnostic BI IMPRESSION: No mammographic or sonographic abnormal finding to account for the patient's bilateral areas of breast pain and right breast palpable lump. Recommend clinical evaluation and follow-up. ASSESSMENT: BI-RADS Category 1: Negative RECOMMENDATION: 1 year F/U This patient's information was entered into a reminder system with a target due date for their next mammogram. Electronically signed by: Nadia Wade DO 05/08/2025 02:56 PM EDT Dictated By: Nadia Wade DO Signed By: <Electronically signed by Nadia Wade DO in OV> 05/08/25 1456 DD/ 1330 TD/TT: 05/08/25 1355 Detective Bureau Chief: Naomy Boland CNM IMG BI PROCEDURES Final R esult * Culture, Urine, Routine (04/19/2025 2:46 PM EDT) Only the most recent of2 resultswithin the time period is included. Urine Urine specimen obtained by clean catch procedure / Unknown 04/19/2025 2:46 PM EDT 04/19/2025 4:48 PM EDT Comment:UACC Narrative [facility] - 04/21/2025 11:37 AM EDT Urine Culture Report Result Urine Culture 50,000 to 100,000 cfu/ml Urine Culture Mixed bacterial buddy characteristic of Urine Culture urogenital contamination. Specimen Source: [facility]rine clean catch [facility] MICROBIOLOGY - GENERA L ORDERABLES Final Result [facility] [address] [place] [phone] * POCT Urine (04/11/2025 3:05 PM EDT) Preg Test, Ur Negative Negative, Indeterminate, None Detected, Invalid, Specimen unsatisfactory for evaluation, Weakly Positive, 2+ QC Media Lot # [id number] Lot# Expiration Date , Urine 04/11/2025 3:05 PM EDT [facility] POINT OF CARE TEST ENTER/ EDIT ORDERABLES Final Result * POCT fern test, vaginal fluid manually resulted (04/11/2025 3:01 PM EDT) JUANIS Prep Negative Comment:pH 4.5, neg whiff, n eg clue, neg trich, neg yeast, neg wbc Vaginal Fluid Vaginal structure / Unknown 04/11/2025 3:01 PM EDT [facility] POINT OF CARE TEST ENTER/ EDIT ORDERABLES Final Result * Trichomonas RNA (Urine/Vaginal) (04/11/2025 3:00 PM EDT) Trichomas vaginalis RNA, QL, TMA NOT DETECTED NOT DETECTED [facility] Comment:For additional infor robert, please refer [email or web address](This link is being provided for informational/educational purposes only.)THIS TEST WAS PERFORMED AT:[facility] [place] [id number] MCALLISTER MD Urine (Urine, Random) 04/11/2025 3:00 PM EDT 04/11/2025 5:39 PM EDT [facility] BODY FLUIDS AND STOOL S ORDERABLES Final Result [facility] [address] [place] [address] [phone] * Chlamydia/N. Gonorrhoeae RNA, TMA, Vagina (04/11/2025 3:00 PM EDT) CT PCR NOT DETECTED Not Detect. [facility] Comment:A not detected test result [...] psychologicalconsequences. NG PCR NOT DETECTED Not Detect. [facility] Comment:A not detected test result [...] 3:00 PM EDT 04/11/2025 5:[address] [facility] [facility] MICROBIOLOGY - GENERA L ORDERABLES Final Result [facility] [address] [place] [phone] * POCT urinalysis dipstick manually resulted [...] Media Lot # [id number] Lot# Expiration Date [id number] Urine 04/11/2025 2:50 PM EDT Result [facility] Naomy Boland [facility] POINT OF CARE TEST ENTER/ EDIT ORDERABLES Final Result * VASC US Lower Extremity Venous Insufficiency Bilateral (04/05/2025 1:57 PM EDT) 04/05/2025 1:57 PM EDT Narrative [facility] - 04/05/2025 3:25 PM EDT [address] [address] Ultrasound Report Signed Patient: Janelle León MR#: [id number] : 1975 Acct:[id number] Age/Sex: 50 / F ADM Date: 04/05/25 Loc: . Attending Dr: Corin Doyle MD Ordering Physician: Corin Doyle MD Date of Service: 04/05/25 Procedure(s): US venous insuf bilat Accession Number(s): [id number] cc: Corin Doyle MD Reason for Exam: [...] 0.4 cm Reflux: 0 ms PERFORATORS: Location: Personal Banking Representative into varicosity, distal calf Size: 0.3 cm [...] PERFORATORS: Location: Greater saphenous vein, mid thigh business asst into varicosity Size: 0.2 cm Reflux: 0 [...] Shamar Eddy MD 04/05/2025 03:22 PM EDT Dictated By: Shamar Eddy MD Signed By: <Electronically signed by Shamar Eddy MD in OV> 04/05/25 1522 DD/ 1357 TD/TT: 04/05/25 1425 Detective Bureau Chief: Procedure Note Donotuseinterpreter, Image - 04/05/[address] [address] Ultrasound Report Signed Patient: Janelle León GMR#: [id number] : 1975Acct:[id number] Age/Sex: 50 / FADM Date: 04/05/25 Loc: .US Attending Dr: Corin Doyle MD Ordering Physician: Corin Doyle MD Date of Service: 04/05/25 Procedure(s): US venous insuf bilat Accession Number(s): [id number] cc: Corin Doyle MD Reason for Exam: [...] 0.4 cm Reflux: 0 ms PERFORATORS: Location: Personal Banking Representative into varicosity, distal calf Size: 0.3 cm [...] PERFORATORS: Location: Greater saphenous vein, mid thigh business asst into varicosity Size: 0.2 cm Reflux: 0 [...] 04/05/25 1522 DD/ 1357 TD/TT: 04/05/25 1425 Detective Bureau Chief: us Corin Doyle MD CV VASCULAR PROCEDURES Edited Re sult - Final Performing Organization Address [facility]/ZIP Co de Phone Number [facility] [address] [place] [address] [phone] * HPV DNA, Low/High Risk (04/02/2025 12:00 AM EDT) HPV High Risk Negative Negative [facility] HPV Genotype 16 Negative Negative [facility] HPV Genotype 18 Negative Negative [facility] Comment:HPV testing performe d at [facility] (CLIA#[id number]), [address] [place] [address].Testing for HPV was performed using the Laura [...] Naomy Boland CNM LAB BLOOD ORDERABLES Tegan l Result Performing Organization Address [facility]/ZIP Co de Phone Number [facility] [address] [place] [address] [phone] * Pap Smear (04/02/2025 12:00 AM EDT) Swab Cervix uteri structure / Unknown 04/02/2025 04/03/2025 11:40 AM EDT [facility] - 04/09/2025 10:08 AM EDT ----- ------- Name: Janelle León Age/Sex: 50/F : 1975 Unit#: [id number] Attend Dr: NAOMY BOLAND CNM Re04/02/25 Status: DEP REF Location: HO.LNP Disch: ----- ------- SPEC : [id number] RECD: 04/03/25-1140 STATUS: CHACHO RODRIGUEZ NUM: [id number] EVI: 04/02/25-[address]: NAOMY BOLAND CNM ENTERED: 04/03/25-1156 SP TYPE: Pap Smr OT DR: ORDERED: Pap Smear, PAP path review [...] and HPV testing will be performed at [facility] (CLIA #[id number]), [address] [place] [address]. Testing for HPV was performed using the [employer] CLINT 6800 system. The presence of HPV [...] detected. All professional services are performed by [facility] ([address] [place], [place] [phone]; ; CLIA #[id number]). The PAP Test is a screening procedure with the inherent possibility of both false negative and false positive results. Results should be interpreted in the context of historic and current clinical findings. Reliability of the PAP Test is enhanced by performing the test on a regular repetitive basis. CONTINUED ON NEXT PAGE ----- ------- Name: Janelle León Age/Sex: 50/F : 1975 Unit#: [id number] Attend Dr: NAOMY BOLAND CNM Re04/02/25 Status: DEP REF Location: [facility] Disch: ----- ------- SPEC : [id number] RECD: 04/03/25114 STATUS: CHACHO RODRIGUEZ NUM: [id number] EVI: 04/02/25-[address]: NAOMY BOLAND CNM ENTERED: 04/03/25-1156 SP TYPE: Pap Smr OTHR DR: ORDERED: Pap Smear, PAP path review ----- ------- Signed (signature on file) Rios Castro MD 04/09/25 1008 ----- ------- END OF REPORT Naomy Boland CNM LAB CYTOLOGY ORDERABLES F inal Result [facility] [address] [place] [phone] * Magnesium (04/01/2025 3:26 PM EDT) Magnesium 2.1 1.6 - 2.6 mg/dL [facility] Blood Venous blood specimen / Unknown 04/01/2025 3:26 PM EDT 04/01/2025 4:08 PM EDT Corin Doyle MD LAB BLOOD ORDERABLES Final Resul t Performing Organization Address [facility] de Phone Number [facility] [address] [place] [address] [phone] * (ABNORMAL) Basic Metabolic Panel (04/01/2025 3:26 PM EDT) Only the most recent of2 resultswithin the time period is included. Sodium 144 135 - 145 mmol/L [facility] Potassium 3.6 3.3 - 5.1 mmol/L [facility] Chloride 109(H) 96 - 108 mmol/L [facility] Carbon Dioxide 29 22 - 29 mmol/L [facility] Anion Gap 10(L) 12 - 20 [facility] Urea Nitrogen (BUN) 15 9 - 16 mg/dL [facility] Creatinine, Serum 0.81 0.5 - 1.4 mg/dL [facility] Estimated Glomerular Filt Rate >60 [facility] Comment:Chronic Kidney Disea se: Estimated GFR < 60 mL/min/1.29m4Nbowsl Kidney Disease: Estimated GFR < 15 mL/min/1.73m2 Glucose 87 60 - 115 mg/dL [facility] Calcium 8.9 8.4 - 10.2 mg/dL [facility] Blood Venous blood specimen / Unknown 04/01/2025 3:26 PM EDT 04/01/2025 4:08 PM EDT Corin Doyle MD LAB BLOOD ORDERABLES Final Resul t Performing Organization Address [facility] Co de Phone Number [facility] [address] [place] [address] [phone] * Lipid Panel with Reflex to Direct LDL (08/14/2024 4:05 PM EST) Triglycerides 114 <150 mg/dL [facility] Comment:Desirable Triglyceri de: less than 150 mg/dLBorderline High Triglyceride 150-199 mg/dLHigh Triglyceride: 200-499 mg/dLVery High Triglyceride: greater than or equal to 5OO mg/dL Cholesterol 146 <200 mg/dL [facility] Comment:Desirable Cholestero l: less than 200 mg/dLBorderline High Cholesterol: 200-239 mg/dLHigh Cholesterol: greater than 239 mg/dL LDL Cholesterol Calculated 83 <100 mg/dL [facility] Comment:Desirable LDL: less than 100 mg/dLNear Optimal/Above Optimal LDL: 110- 129 mg/dLBorderline High LDL: 130-159 mg/dLHigh LDL: 160-189 mg/dLVery High LDL: greater than or equal to 190 mg/dL HDL Cholesterol 41 >40 mg/dL [facility] Comment:Desirable HDL: great er than 40 mg/dL Note: This HDL assay may give artificially low results in patients with liver disease. Blood 08/14/2024 4:05 PM EST 08/14/2024 5:33 PM EST Corin Doyle MD LAB BLOOD ORDERABLES Final Resul t Performing Organization Address [facility] de Phone Number [facility] [address] [place] [phone] * Hepatitis A,B,C Profile (11/11/2023 8:41 AM EDT) Hepatitis A IgM Nonreactive Nonreactive [facility] Comment:IgM antibodies to GUZMÁN V not detected; does not exclude earlyacute or recovered HAV infection. ~Hepatitis B Surface Antibody REACTIVE Nonreactive [facility] Comment:REACTIVE: > 11.99 mI U/mL Hepatitis B Core Antibody Nonreactive Nonreactive [facility] Hepatitis C Antibody Nonreactive Nonreactive [facility] Comment:Antibodies to HCV no t detected; does not exclude early acuteHCV infection. Hepatitis B Surface Ag Negative Negative [facility] Blood Venous blood specimen / Unknown 11/11/2023 8:41 AM EDT 11/11/2023 11:40 AM EDT Corin Doyle MD LAB BLOOD ORDERABLES Final Resul t Performing Organization Address [facility] Co de Phone Number [facility] [address] [place] [phone] * HIV 1/2 ANTIGEN/ANTIBODY,FOURTH GENERATION W/RFL (07/23/2020 12:19 PM EST) HIV-1/2 ANTIGEN AND ANTIBODIES, 4TH GENERATION W/ REFLEX NON-REACT LU NON-REACT LU [facility] Comment: HIV-1 antigen and [...] purpose. For additional information please refer to http://education.[employer]/faq/EGU489 (This link is being provided for informational/ educational purposes only.) The performance of this assay has not been clinically validated in patients less than 2 years old. 07/23/2020 12:1 9 PM EST us Corin Doyle MD LAB BLOOD ORDERABLES Final Resul t Performing Organization Address City/State/[facility] Co de Phone Number [facility] [address] from Last 3 Months or Most Recently Relevant to Health Maintenance Insurance * Guarantor: Janelle León Account Type Relation to Patient Date of Phone Billing Address Personal/Family Self 1975 [address] [facility] [address] [place] [address] [facility] AD[facility] Care Teams Conduit Worker Relationship Specialty Start Date End Date Corin Doyle MD [address] [place] [address] PCP - General Family Medicine 07/18/18 Sam Peace, ConchisD [address] [place] [address] Pharmacist Pharmacy 03/06/25 Danay Carmen Lawyer ProbateHeadline Writer 12/09/23 Danay Carmen Lawyer ProbateHeadline Writer 08/27/24
--- OUTSIDE RECORDS SUMMARY | 2025-05-08 18:52 | XMS_ITS | Encounter Summary ---
Author Organization [employer] Address [address] [place] [address] Care Team Providers Care Theology Professor Name Role Phone Corin Doyle MD Primary Care Provider [phone] Sam Peace PharmD Unavailable [phone] Reason for Visit * Reason Onset Date Comments Med Refill 05/06/2025 Encounter Details Date Type Department Care Team (Late st Contact Info) Description 05/06/2025 Refill [facility] [address] [place] [address] Corin Doyle MD [address] [place] [address] Moderate persistent asthma with acute exacerbation Social [...] 07/01/2025 3:30 PM EST Medication Management [facility] [address] [place] [phone] Sam Peace, PharmD [address] [place] [phone] documented as of this encounter Visit Diagnoses Diagnosis Moderate persistent asthma with acute exacerbation documented in this encounter Additional Health Concerns Assessment Noted Time PHQ-9 Depression Total Score: 0 08/14/19 25 3:31 PM EST documented as of this encounter Care Teams Theology Professor Relationship Specialty Start Date End Date Corin Doyle MD [address] [place] [phone] PCP - General Family Medicine 07/18/18 Sam Peace, PharmD [address] [place] [phone] Pharmacist Pharmacy 03/06/25 Danay Carmen Strategic Marketing AssociateCleaner Window 12/09/23 Danay Carmen Strategic Marketing AssociateCleaner Window 08/27/24 documented as of this encounter
--- OUTSIDE RECORDS SUMMARY | 2025-05-08 18:52 | XMS_ITS | Encounter Summary ---
Author Organization [employer] Address [address] [place] [address] Care Team Providers Care Dance Critic Name Role Phone oCrin Doyle MD Primary Care Provider [phone] Sam Peace PharmD Unavailable [phone] Encounter Details Date Type Department Care Team ([facility] Contact Info) Description 04/02/2025 Results Follow-Up [facility] [address] [place] [address] Corin Doyle MD [address] [place], [place] [phone] Basic Metabolic Panel, Magnesium Social History Tobacco [...] Description 07/01/2025 3:30 PM EST Medication Management [facility] [address] [place] [address] Sam Peace, PharmD [address] [place] [address] documented as of this encounter Visit Diagnoses Not on filedocumented in this encounter Additional Health Concerns Assessment Noted Time PHQ-9 Depression Total Score: 0 08/14/19 3:31 PM EST documented as of this encounter Care Teams Dance Critic Relationship Specialty Start Date End Date Corin Doyle MD [address] [place] [address] PCP - General Family Medicine 07/18/18 Sam Peace, PharmD [address] [place] [phone] Pharmacist Pharmacy 03/06/25 Danay Carmen Overnight CashierManager Of Creative Services 12/09/23 Danay Carmen Overnight CashierManager Of Creative Services 08/27/24 documented as of this encounter
--- OUTSIDE RECORDS SUMMARY | 2025-05-08 18:52 | XMS_ITS | Encounter Summary ---
Author Organization [employer] Address [address] [place] [address] 7t [place] [address] Care Team Providers Care Grease Man Name Role Phone Corin Doyle MD Primary Care Provider [phone] Sam Peace PharmD Unavailable [phone] Encounter Details Date Type Department Care Team (Late Contact Info) Description 06/28/2022 Orders Only [facility] [address] [place] [address] Belgica Lanza RN Social History Tobacco Use [...] Department Care Team (Late Contact Info) Description 07/01/2025 3:30 PM EST Medication Management [facility] [address] [place] [address] Sam Peace, PharmD [address] [place] [address] documented as of this encounter Visit Diagnoses Not on filedocumented in this encounter Care Teams Grease Man Relationship Specialty Start Date End Date Corin Doyle MD [address] [place] [address] PCP - General Family Medicine 07/18/18 Sam Peace, PharmD [address] [place] [phone] Pharmacist Pharmacy 03/06/25 Danay Carmen Geospatial Program Management OfficerPrinted Circuit Board Layout Designer 12/09/23 Danay Carmen Geospatial Program Management OfficerPrinted Circuit Board Layout Designer 08/27/24 documented as of this encounter
--- OUTSIDE RECORDS SUMMARY | 2025-05-08 18:52 | XMS_ITS | Encounter Summary ---
Author Organization [employer] Address [address] [place] [address] Care Team Providers Care Bereavement Program Coordinator Name Role Phone Corin Doyle MD Primary Care Provider [phone] Sam Peace PharmD Unavailable [phone] Reason for Visit * Reason Onset Date Comments Med Refill 11/02/2023 Encounter Details Date Type Department Care Team (Late st Contact Info) Description 11/02/2023 Refill [facility] [address] [place] [address] Corin Doyle MD [address] [place] [address] Social History Tobacco Use Types [...] instructions back to me. Also sent on [employer] so pt has them written out since she is active on [employer].[place] scheduled for 11/15 with [facility] for blood pressure check. Pt verbalized [...] Description 07/01/2025 3:30 PM EST Medication Management [facility] [address] [place] [address] Sam Peace, PharmD [address] [place] [address] documented as of this encounter Visit Diagnoses Not on filedocumented in this encounter Additional Health Concerns Assessment Noted Time PHQ-9 Depression Total Score: 0 11/24/19 3:58 PM EDT documented as of this encounter Care Teams Bereavement Program Coordinator Relationship Specialty Start Date End Date Corin Doyle MD [address] [place] [address] PCP - General Family Medicine 07/18/18 Sam Peace, PharmD [address] [place] [address] Pharmacist Pharmacy 03/06/25 Danay Carmen Shared Services ManagerCounter Checker 12/09/23 Danay Carmen Shared Services ManagerCounter Checker 08/27/24 documented as of this encounter
--- OUTSIDE RECORDS SUMMARY | 2025-05-08 18:52 | XMS_ITS | Encounter Summary ---
Author Organization [employer] Address [address] 7[address] [place] [address] Care Team Providers Care Crm Developer Name Role Phone Corin Doyle MD Primary Care Provider [phone] Sam Peace PharmD Unavailable [phone] Reason for Visit * Reason Onset Date Comments Med Refill 12/03/2024 Encounter Details Date Type Department Care Team (Late st Contact Info) Description 12/03/2024 Refill [facility] [address] [place] [address] Eddie Guerrero MD [address] [place] [address] Moderate persistent asthma with acute exacerbation Social [...] Description 07/01/2025 3:30 PM EST Medication Management [facility] [address] [place] [phone] Sam Peace, PharmD [address] [place] [phone] documented as of this encounter Visit Diagnoses Diagnosis Moderate persistent asthma with acute exacerbation documented in this encounter Additional Health Concerns Assessment Noted Time PHQ-9 Depression Total Score: 0 08/14/19 25 3:31 PM EST documented as of this encounter Care Teams Crm Developer Relationship Specialty Start Date End Date Corin Doyle MD [address] [place] [address] PCP - General Family Medicine 07/18/18 Sam ePace, PharmD [address] [place] [phone] Pharmacist Pharmacy 03/06/25 Danay Carmen Head Of Sales PromotionDean Of Graduate Studies 12/09/23 Danay Carmen Head Of Sales PromotionDean Of Graduate Studies 08/27/24 documented as of this encounter
--- OUTSIDE RECORDS SUMMARY | 2025-05-08 18:52 | XMS_ITS | Encounter Summary ---
Author Organization [employer] Address [address] [place] [address] 7t [place] [address] Care Team Providers Care Color Repairer Name Role Phone Corin Doyle MD Primary Care Provider [phone] Sam Peace PharmD Unavailable [phone] Reason for Referral * Consultation (Routine) - Authorized Specialty Diagnoses / Procedures Referred By Contac t Referred To Contact Pharmacy Diagnoses Primary hypertension Corin Doyle MD [address] [place] [address] Phone: tel: fax: Referral ID Status Reason Start Date Expiration Date Visits Requested Visits Authorized [id number] Authorized Consult and Treat 04/01/2025 04/01/2026 6 6 Encounter Details Date Type Department Care Team (Late st Contact Info) Description 04/01/2025 Orders Only [facility] [address] [place] [address] [phone] Corin Doyle MD [address] [place] [address] [phone] Primary hypertension (Primary Dx) Social History Tobacco [...] Description 07/01/2025 3:30 PM EST Medication Management [facility] [address] [place] [address] Sam Peace, PharmD [address] [place] [address] Scheduled Referrals Name Type Priority Associated Diagnoses Orde r Schedule Referral to Pharmacy CDTM Outpatient Referral Routine Primary hypertension Ordered: 04/01/2025 documented as of this encounter Visit Diagnoses Diagnosis Primary hypertension- Primary Unspecified essential hypertension documented in this encounter Additional Health Concerns Assessment Noted Time PHQ-9 Depression Total Score: 0 08/14/19 25 3:31 PM EST documented as of this encounter Care Teams Color Repairer Relationship Specialty Start Date End Date Sakurai, Corin, MD [address] [place], [place] [phone] PCP - General Family Medicine 07/18/18 Sam Peace, PharmD [address] [place] [address] Pharmacist Pharmacy 03/06/25 Danay Carmen Lamination TechnicianWater And Gas Helper 12/09/23 Danay Carmen Lamination TechnicianWater And Gas Helper 08/27/24 documented as of this encounter
--- OUTSIDE RECORDS SUMMARY | 2025-05-08 18:52 | XMS_ITS | Encounter Summary ---
Author Organization [employer] Address [address] [facility] [address] [address] [place] [address] Care Team Providers Care Utility Systems Repairer Operator Name Role Phone Corin Doyle MD Primary Care Provider [phone] Sam Peace PharmD Unavailable [phone] Reason for Visit * Reason Onset Date Comments Med Refill 02/19/2024 Encounter Details Date Type Department Care Team (Late st Contact Info) Description 02/19/2024 Refill [facility] [address] [place] [address] Gabriela López MD [address] [place], [place] [phone] Lumbar sprain, initial encounter Social History Tobacco [...] Description 07/01/2025 3:30 PM EST Medication Management [facility] [address] [place] [address] Sam Peace, PharmD [address] [place] [address] documented as of this encounter Visit Diagnoses Diagnosis Lumbar sprain, initial encounter documented in this encounter Additional Health Concerns Assessment Noted Time PHQ-9 Depression Total Score: 0 11/24/19 23 3:58 PM EDT documented as of this encounter Care Teams Utility Systems Repairer Operator Relationship Specialty Start Date End Date Corin Doyle MD [address] [place] [phone] PCP - General Family Medicine 07/18/18 Sam Peace, PharmD [address] [place] [phone] Pharmacist Pharmacy 03/06/25 Danay Carmen Assistant Associate ProfessorUmbrella Finisher 12/09/23 Danay Carmen Assistant Associate ProfessorUmbrella Finisher 08/27/24 documented as of this encounter
--- OUTSIDE RECORDS SUMMARY | 2025-05-08 18:52 | XMS_ITS | Encounter Summary ---
Author Organization [email or web address] Address [address] [place] [address] 7t [place] [address] Care Team Providers Care Metal Turner Name Role Phone Corin Doyle MD Primary Care Provider [phone] Sam Peace PharmD Unavailable [phone] Reason for Referral * Imaging (Routine) - Closed Specialty Diagnoses / Procedures Referred By Contac t Referred To Contact Radiology Diagnoses Breast cancer screening by mammogram Procedures BI Mammogram Screening Tomosynthesis Bilateral Corin Doyle MD [address] [place] [address] Phone: tel: fax: [address] Phone: tel: fax: Referral ID Status Reason Start Date Expiration Date Visits Re quested Visits Authorized [id number] Closed 11/01/2023 10/31/2024 1 1 * Consultation (Routine) - Canceled Specialty Diagnoses / Procedures Referred By Contac t Referred To Contact Gastroenterology Diagnoses Colon cancer screening Corin Doyle MD [address] [place] [address] Phone: tel: fax: Referral ID Status Reason Start Date Expiration Date Visits Requested Visits Authorized [id number] Canceled Specialty Services Required 11/01/2023 10/31/2024 1 1 * Imaging (Routine) - Closed Specialty Diagnoses / Procedures Referred By Contantwon t Referred To Contact Radiology Diagnoses Elevated liver enzymes Procedures US Abdomen Comp w elastography Corin Doyle MD [address] [place] [address] Phone: tel: fax: [facility] [address] [place] [address] Phone: tel: fax: Referral ID Status Reason Start Date Expiration Date Visits Re quested Visits Authorized [id number] Closed 11/01/2023 10/31/2024 1 1 Encounter Details Date Type Department Care Team (Late st Contact Info) Description 11/01/2023 Orders Only [facility] [address] [place] [address] Corin Doyle MD [address] [place] [address] Elevated liver enzymes (Primary Dx); Breast cancer [...] Description 07/01/2025 3:30 PM EST Medication Management [facility] [address] [place] [address] Sam Peace, PharmD [address] [place] [address] Scheduled Referrals Name Type Priority Associated Diagnoses [...] PM EDT Narrative 12/30/2023 5:50 AM EDT [facility] [address] [place] [address] Mammography Report Signed Patient: Janelle León MR#: [id number] : 1975 Acct:[id number] Age/Sex: 48 / F ADM Date: 11/29/23 Loc: HO.MAMMO Attending Dr: Corin Doyle MD Ordering Physician: Corin Doyle MD Results: 0Incomple te: Needs Additional Imaging Evaluation Date of Service: 11/29/23 Follow Up: Additional Imagi ng Procedure(s): MM tomosynthesis screening BI Accession Number(s): [id number] cc: Corin Doyle MD EXAMINATION: MM SCREENING [...] in OV> 12/30/23 0546 DD/ 1557 TD/TT: Brusher Warp: Procedure Note Donotuseinterpreter, Image - 12/30/2023 [facility] [address] [place] [address] Mammography Report Signed Patient: Janelle León GMR#: [id number] : 1975Acct:[id number] Age/Sex: 48 / FADM Date: 11/29/23 Loc: HARI Attending Dr: Corin Doyle MD Ordering Physician: Corin Doyle MDResults: 0Incomple te: Needs Additional Imaging Evaluation Date of Service: 11/29/23Follow Up: Additional Imagi ng Procedure(s): MM tomosynthesis screening BI Accession Number(s): [id number] cc: Corin Doyle MD EXAMINATION: MM SCREENING [...] in OV> 12/30/23 0546 DD/ 1557 TD/TT: Brusher Warp: us Corin Doyle MD IMG BI PROCEDURES Edited Result - Final * US Abdomen Comp w elastography (11/22/2023 11:50 AM EDT) Anatomical Region Laterality Modality Abdomen Ultrasound 11/22/2023 11:5 0 AM EDT Narrative 11/28/2023 5:18 PM EDT [place] [address] Ultrasound Report Signed Patient: Janelle León MR#: [id number] : 1975 Acct:[id number] Age/Sex: 48 / F ADM Date: 11/22/23 Loc: .US Attending Dr: Corin Doyle MD Ordering Physician: Corin Doyle MD Date of Service: 11/22/23 Procedure(s): US abdomen comp w elastography Accession Number(s): [id number] cc: Corin Doyle MD EXAMINATION: US COMPLETE [...] in OV> 11/28/23 1714 DD/ 1150 TD/TT: Brusher Warp: KIMI Procedure Note Donotuseinterpreter, Image - 11/28/2023 [place] [address] Ultrasound Report Signed Patient: Janelle León GMR#: [id number] : 1975Acct:[id number] Age/Sex: 48 / FADM Date: 11/22/23 Loc: HO.US Attending Dr: Corin Doyle MD Ordering Physician: Corin Doyle MD Date of Service: 11/22/23 Procedure(s): US abdomen comp w elastography Accession Number(s): [id number] cc: Corin Doyle MD EXAMINATION: US COMPLETE [...] in OV> 11/28/23 1714 DD/ 1150 TD/TT: Brusher Warp: KIMI us Corin Doyle MD IMG US PROCEDURES Final Result * (ABNORMAL) Potassium (11/11/2023 8:41 AM EDT) Potassium 3.2(L) 3.3 - 5.1 mmol/L [facility] Blood Venous blood specimen / Unknown 11/11/2023 8:41 AM EDT 11/11/2023 11:40 AM EDT us Corin Doyle MD LAB BLOOD ORDERABLES Final Resul t Performing Organization Address [facility] Co de Phone Number [facility] [address] [place] [phone] * Hepatitis A,B,C Profile (11/11/2023 8:41 AM EDT) Pathologist [facility] Hepatitis A IgM Nonreactive Nonreactive [facility] Comment:IgM antibodies to GUZMÁN V not detected; does not exclude earlyacute or recovered HAV infection. ~Hepatitis B Surface Antibody REACTIVE Nonreactive [facility] Comment:REACTIVE: > 11.99 mI U/mL Hepatitis B Core Antibody Nonreactive Nonreactive [facility] Hepatitis C Antibody Nonreactive Nonreactive [facility] Comment:Antibodies to HCV no t detected; does not exclude early acuteHCV infection. Hepatitis B Surface Ag Negative Negative [facility] Blood Venous blood specimen / Unknown 11/11/2023 8:41 AM EDT 11/11/2023 11:40 AM EDT us Corin Doyle MD LAB BLOOD ORDERABLES Final Resul t Performing Organization Address City/[facility]/ZIP Co de Phone Number [facility] [address] [place] [address] [phone] * (ABNORMAL) CBC auto differential (11/11/2023 8:41 AM EDT) White Blood Count 6.6 4.8 - 10.8 X10*3/uL [facility] Red Blood Count 5.08 4.20 - 5.50 X10*6/uL [facility] Hemoglobin 13.4 12.0 - 16.0 g/dl [facility] Hematocrit 42.1 37.0 - 47.0 % [facility] Mean Corpuscular Volume 82.9 80.0 - 98.0 fL [facility] Mean Corpuscular Hemoglobin 26.4(L) 27.0 - 33.0 pg [facility] Mean Corpuscular HGB Conc 31.8 31.0 - 35.0 g/dl [facility] Red Cell Distribution Width 14.4 11.0 - 16.0 % [facility] Platelet Count 267 160 - 400 X10*3/uL [facility] Mean Platelet Volume 11.0 9.4 - 12.3 fL [facility] Neutrophils Percent Auto 59.9 45 - 73 % [facility] Imm Gran Pct Auto 0.6(H) 0.0 - 0.4 % [facility] Lymphocytes Percent Auto 26.2 20 - 40 % [facility] Monocytes Percent Auto 8.4 2 - 11 % [facility] Eosinophils Percent Auto 3.8 0 - 4 % [facility] Basophils Percent Auto 1.1 0 - 2 % [facility] NRBC Pct Auto 0.0 0.0 - 0.2 /100WBC [facility] Neutrophils Absolute Auto 3.9 2.0 - 8.3 x10*3/uL [facility] Imm Gran Abs Auto 0.04(H) 0.00 - 0.03 X10*3/uL [facility] Lymphocytes Absolute Auto 1.7 1.2 - 4.9 X10*3/uL [facility] Monocytes Absolute Auto 0.6 0.1 - 1.2 X10*3/uL [facility] Eosinophils Absolute Auto 0.3 0.0 - 0.4 X10*3/uL [facility] Basophils Absolute Auto 0.1 0.0 - 0.2 X10*3/uL [facility] NRBC Abs Auto 0.000 0.0 - 0.012 X10*3/uL [facility] Blood Venous blood specimen / Unknown 11/11/2023 8:41 AM EDT 11/11/2023 11:40 AM EDT us Corin Doyle MD LAB BLOOD ORDERABLES Final Resul t [facility] [address] [place] [address] [phone] documented in this encounter Visit Diagnoses Diagnosis Elevated liver enzymes- Primary Other nonspecific abnormal serum enzyme levels Breast cancer screening by mammogram Colon cancer screening Special screening for malignant neoplasms, colon Hypokalemia Hypopotassemia documented in this encounter Additional Health Concerns Assessment Noted Time PHQ-9 Depression Total Score: 0 11/24/19 23 3:58 PM EDT documented as of this encounter Care Teams Metal Turner Relationship Specialty Start Date End Date Corin Doyle MD [address] [place] [address] PCP - General Family Medicine 07/18/18 Sam Peace, ConchisD [address] [place] [address] Pharmacist Pharmacy 03/06/25 Danay Carmen Peanut ShellerBrown Stock Washer 12/09/23 Danay Carmen Peanut ShellerBrown Stock Washer 08/27/24 documented as of this encounter
--- OUTSIDE RECORDS SUMMARY | 2025-05-08 18:52 | XMS_ITS | Encounter Summary ---
Author Organization [employer] Address [address] 7t [place] [address] Care Team Providers Care Mattress Packer Name Role Phone Corin Doyle MD Primary Care Provider [phone] Sam Peace PharmD Unavailable [phone] Reason for Visit * Reason Onset Date Comments Referral 10/18/2023 Encounter Details Date Type Department Care Team ([facility] st Contact Info) Description 10/18/2023 Telephone [facility] [address] [place] [address] Corin Doyle MD [address] [place] [address] Referral Social History Tobacco Use Types Packs/Day [...] - 10/18/2023 3:42 PM EDT Tc from [facility] with [facility] calling in regards referral for cardiology, stated pt discussed referral on last appt with PCP on 08/08 and the referral is to control high blood pressure. documented in this encounter Plan of Treatment Upcoming Encounters Date Type Department Care Team (Late st Contact Info) Description 07/01/2025 3:30 PM EST Medication Management [facility] [address] [place] [address] Sam Peace, PharmD [address] [place] [address] documented as of this encounter Visit Diagnoses Not on filedocumented in this encounter Additional Health Concerns Assessment Noted Time PHQ-9 Depression Total Score: 0 11/24/19 23 3:58 PM EDT documented as of this encounter Care Teams Mattress Packer Relationship Specialty Start Date End Date Corin Doyle MD [address] [place], [place] [phone] PCP - General Family Medicine 07/18/18 Sam Peace, PharmD [address] [place] [phone] Pharmacist Pharmacy 03/06/25 Danay Carmen Wet Cotton FeederEpic Cadence Analyst 12/09/23 Danay Carmen Wet Cotton FeederEpic Cadence Analyst 08/27/24 documented as of this encounter
--- OUTSIDE RECORDS SUMMARY | 2025-05-08 18:52 | XMS_ITS | Encounter Summary ---
Author Organization [employer] Address [address] 7[address] [place] [address] Care Team Providers Care Internal Medicine Specialist Name Role Phone Corin Doyle MD Primary Care Provider [phone] Sam Peace PharmD Unavailable Encounter Details Date Type Department Care Team ([facility] st Contact Info) Description 04/06/2025 Telephone [facility] [address] [place], [place] [phone] Corin Doyle MD [address] [place] [address] Social History Tobacco Use Types Packs/Day Years [...] Description 07/01/2025 3:30 PM EST Medication Management [facility] [address] [place] [address] Sam Peace, PharmD [address] [place] [address] documented as of this encounter Visit Diagnoses Not on filedocumented in this encounter Additional Health Concerns Assessment Noted Time PHQ-9 Depression Total Score: 0 08/14/19 3:31 PM EST documented as of this encounter Care Teams Internal Medicine Specialist Relationship Specialty Start Date End Date Corin Doyle MD [address] [place] [phone] PCP - General Family Medicine 07/18/18 Sam Peace, PharmD [address] [place] [phone] Pharmacist Pharmacy 03/06/25 Danay Carmen Art Gallery InternshipTester Sound 12/09/23 Danay Carmen Art Gallery InternshipTester Sound 08/27/24 documented as of this encounter
--- OUTSIDE RECORDS SUMMARY | 2025-05-08 18:52 | XMS_ITS | Encounter Summary ---
Author Organization [employer] Address [address] 7t [place] [address] Care Team Providers Care Manager Route Name Role Phone Corin Doyle MD Primary Care Provider Sam Peace PharmD Unavailable [phone] Reason for Visit * Reason Onset Date Comments Med Refill 07/12/2024 Encounter Details Date Type Department Care Team (Late st Contact Info) Description 07/12/2024 Refill [facility] [address] [place] [address] Corin Doyle MD [address] [place] [address] Social History Tobacco Use Types Packs/Day Years [...] Description 07/01/2025 3:30 PM EST Medication Management [facility] [address] [place] [phone] Sam Peace, PharmD [address] [place] [address] documented as of this encounter Visit Diagnoses Not on filedocumented in this encounter Additional Health Concerns Assessment Noted Time PHQ-9 Depression Total Score: 0 11/24/19 23 3:58 PM EDT documented as of this encounter Care Teams Manager Route Relationship Specialty Start Date End Date Corin Doyle MD [address] [place] [phone] PCP - General Family Medicine 07/18/18 Sam Peace, PharmD [address] [place] [phone] Pharmacist Pharmacy 03/06/25 Danay Carmen Shop MechanicInternal Control Consultant 12/09/23 Danay Carmen Shop MechanicInternal Control Consultant 08/27/24 documented as of this encounter
--- OUTSIDE RECORDS SUMMARY | 2025-05-08 18:52 | XMS_ITS | Encounter Summary ---
Author Organization [employer] Address [address] 7t [place] [address] Care Team Providers Care Technical Writing Lead/Mgr Name Role Phone Corin Doyle MD Primary Care Provider [phone] Sam Peace PharmD Unavailable [phone] Reason for Visit * Reason Onset Date Comments Med Refill 04/02/2024 Encounter Details Date Type Department Care Team (Late st Contact Info) Description 04/02/2024 Refill [facility] [address] [place] [address] Corin Doyle MD [address] [place] [address] Social History Tobacco Use Types Packs/Day Years [...] Medication Management [facility] [address] [place] [phone] Sam Peace, PharmD [address] [place] [address] documented as of this encounter Visit Diagnoses Not on filedocumented in this encounter Additional Health Concerns Assessment Noted Time PHQ-9 Depression Total Score: 0 11/24/19 23 3:58 PM EDT documented as of this encounter Care Teams Technical Writing Lead/Mgr Relationship Specialty Start Date End Date Corin Doyle MD [address] [place] [phone] PCP - General Family Medicine 07/18/18 Sam Peace, PharmD [address] [place] [phone] Pharmacist Pharmacy 03/06/25 Danay Carmen Market PresidentCow Tender 12/09/23 Danay Carmen Market PresidentCow Tender 08/27/24 documented as of this encounter
--- OUTSIDE RECORDS SUMMARY | 2025-05-08 18:53 | XMS_ITS | Encounter Summary ---
Author Organization [employer] Address [address] 7[address] [place] [address] Care Team Providers Care Back Filler Operator Name Role Phone Corin Doyle MD Primary Care Provider Sam Peace PharmD Unavailable [phone] Reason for Visit * Reason Onset Date Comments triage 10/28/2022 Encounter Details Date Type Department Care Team ([facility] st Contact Info) Description 10/28/2022 Telephone [facility] [address] [place] [address] Corin Doyle MD [address] [place] [address] triage Social History Tobacco Use Types Packs/Day [...] 11:47 AM EDT Triage call with [employer] Coordinate Measuring Machine Programmer [place] [id number] Pt reports burning with urination, bladder pressure, slight bilateral flank pain and frequency. Pt denies bad odor, fever. Pt is advised to come to [facility] to be seen today and Pt agrees [...] 07/01/2025 3:30 PM EST Medication Management [facility] [address] [place] [address] Sam Peace PharmD [address] [place] [address] documented as of this encounter Visit Diagnoses Not on filedocumented in this encounter Care Teams Back Filler Operator Relationship Specialty Start Date End Date Corin Doyle MD [address] [place] [address] PCP - General Family Medicine 07/18/18 Sam Peace, PharmD [address] [place] [phone] Pharmacist Pharmacy 03/06/25 Danay Carmen Fowl Blood TesterFloral Clerk 12/09/23 Danay Carmen Fowl Blood TesterFloral Clerk 08/27/24 documented as of this encounter
--- OUTSIDE RECORDS SUMMARY | 2025-05-08 18:53 | XMS_ITS | Encounter Summary ---
Author Organization [employer] Address [address] [facility] 7t [place] [address] Care Team Providers Care Rn Camp Name Role Phone Corin Doyle MD Primary Care Provider [phone] Sam Peace PharmD Unavailable [phone] Reason for Visit * Reason Onset Date Comments Referral 01/26/2023 Encounter Details Date Type Department Care Team ([facility] st Contact Info) Description 01/26/2023 Telephone [facility] [address] [place] [address] Corin Doyle MD [address] [place] [address] Referral Social History Tobacco Use Types Packs/Day [...] Description 07/01/2025 3:30 PM EST Medication Management [facility] [address] [place] [address] Sam Peace, PharmD [address] [place] [address] documented as of this encounter Visit Diagnoses Not on filedocumented in this encounter Additional Health Concerns Assessment Noted Time PHQ-9 Depression Total Score: 0 11/24/19 23 3:58 PM EDT documented as of this encounter Care Teams Rn Camp Relationship Specialty Start Date End Date Corin Doyle MD [address] [place] [address] PCP - General Family Medicine 07/18/18 Sam Peace, PharmD [address] [place] [address] Pharmacist Pharmacy 03/06/25 Gabriella Carmen Backhoe OperatorCustomer Management Specialist 12/09/23 Gabriella Carmen Backhoe OperatorCustomer Management Specialist 08/27/24 documented as of this encounter
--- OUTSIDE RECORDS SUMMARY | 2025-05-08 18:53 | XMS_ITS | Encounter Summary ---
Author Organization [employer] Address [address] [facility] 7t [place] [address] Care Team Providers Care Casting Plug Assembler Name Role Phone Corin Doyle MD Primary Care Provider [phone] Sam Peace PharmD Unavailable [phone] Reason for Visit * Reason Comments Med Refill Encounter Details Date Type Department Care Team ([facility] st Contact Info) Description 12/14/2022 Refill [facility] [address] [place], [place] [phone] Corin Dyole MD [address] [place], [place] [phone] LLQ pain Social History Tobacco Use Types [...] Description 07/01/2025 3:30 PM EST Medication Management [facility]INE [address] [place] [phone] Sam Peace, PharmD [address] [place] [address] documented as of this encounter Visit Diagnoses Diagnosis LLQ pain Abdominal pain, left lower quadrant documented in this encounter Additional Health Concerns Assessment Noted Time PHQ-9 Depression Total Score: 0 11/24/19 23 3:58 PM EDT documented as of this encounter Care Teams Casting Plug Assembler Relationship Specialty Start Date End Date Corin Doyle MD [address] [place] [address] PCP - General Family Medicine 07/18/18 Sam Peace, PharmD [address] [place] [phone] Pharmacist Pharmacy 03/06/25 Danay Carmen City JailerBusiness Support Administrator 12/09/23 Danay Carmen City JailerBusiness Support Administrator 08/27/24 documented as of this encounter
== END 2025-05-08 13:22 | disposition home or self-care (01) ==
LOC: HO.MAMMO 13:21
PROVIDERS: Visit Provider Family Medicine
DX: N60.02 Solitary cyst of left breast (principal); N64.4 Mastodynia
CPT/HCPCS: 76642; 77062; 77066

== ENCOUNTER → 2025-05-08 13:30 | Outpatient (BNV) | payer MEDICAID, SELFPAY | PROVIDERS: Visit Provider Internal Medicine | DX: N64.4 Mastodynia (principal) | CPT/HCPCS: 76642; 77062; 77066 ==

== ENCOUNTER 2025-06-03 14:54 | Outpatient (REF) | payer MEDICAID, SELFPAY ==
--- NOTE | ~2025-06-03 | US_ITS ---
EXAMINATION: US PELVIS CLINICAL INFORMATION: New onset dyspareunia COMPARISON: October 06, 2022 TECHNIQUE: Ultrasound of the pelvis is performed using both transabdominal and transvaginal transducers along with Doppler. Transvaginal imaging is performed due to inadequate visualization transabdominally. FINDINGS: Uterus: The uterus is anteverted and measures 6.6 x 2.8 x 4.0 cm. The double wall endometrial thickness is 2 mm. The uterus is smooth in contour and has normal myometrial echogenicity. No visible fibroid. Adnexa: Right ovary is nonvisualized due to bowel gas. Left ovary is not visualized due to bowel gas. No gross free fluid is identified. US/US pelvic and transvaginal IMPRESSION: Unremarkable ultrasound of the uterus. The ovaries were obscured by bowel gas. Electronically signed by: Shamar Eddy MD 06/03/2025 05:30 PM [facility]
== END 2025-06-03 14:55 | disposition home or self-care (01) ==
LOC: HO.US 14:54
PROVIDERS: Visit Provider Advanced Practice Midwife
DX: N94.10 Unspecified dyspareunia (principal)
CPT/HCPCS: 76830; 76856

== ENCOUNTER → 2025-06-03 14:55 | Outpatient (BNV) | payer MEDICAID, SELFPAY | PROVIDERS: Visit Provider Radiology Diagnostic Radiology | DX: N94.19 Other specified dyspareunia (principal) | CPT/HCPCS: 76830; 76856 ==

== ENCOUNTER 2025-07-03 10:56 | Outpatient (AMB) | payer MEDICAID, SELFPAY ==
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
--- OUTSIDE RECORDS SUMMARY | 2025-07-03 14:17 | XMS_ITS | Encounter Summary ---
Author Organization [employer] Address [address] [facility] [address] 7[address] [place] [address] Care Team Providers Care Rigging Engineer Name Role Phone Corin Doyle MD Primary Care Provider [phone] Sam Peace PharmD Unavailable [phone] Reason for Visit * Reason Onset Date Comments Med Refill 03/23/2024 Encounter Details Date Type Department Care Team (Late st Contact Info) Description 03/23/2024 Refill [facility] MEDICINE [address] [place] [address] Corin Doyle MD 230 [place] [address] Social History Tobacco Use Types Packs/Day Years [...] Care Team (Late st Contact Info) Description 08/06/2025 3:30 PM EST Office Visit [facility] MEDICINE [address] [place] [address] Corin Doyle MD [address] [place] [address] documented as of this encounter Visit Diagnoses Not on filedocumented in this encounter Additional Health Concerns Assessment Noted Time PHQ-9 Depression Total Score: 0 11/24/19 23 3:58 PM EDT documented as of this encounter Care Teams Rigging Engineer Relationship Specialty Start Date End Date Corin Doyle MD [address] [place] [address] PCP - General Family Medicine 07/18/18 Sam Peace, PharmD [address] [place] [address] Pharmacist Pharmacy 03/06/25 06/30/25 Danay Carmen Circulation RepresentativeScutcher Tender 12/09/23 Danay Carmen Circulation RepresentativeScutcher Tender 08/27/24 documented as of this encounter
--- OUTSIDE RECORDS SUMMARY | 2025-07-03 14:17 | XMS_ITS | Encounter Summary ---
Author Organization [employer] Address [address] [address] [facility] [address] 7[address] [place] [address] Care Team Providers Care District Plant Superintendent Name Role Phone Corin Doyle MD Primary Care Provider [phone] Sam Peace PharmD Unavailable [phone] Reason for Visit * Reason Onset Date Comments Med Refill 12/13/2023 Encounter Details Date Type Department Care Team (Late st Contact Info) Description 12/13/2023 Refill [facility] MEDICINE 230 [place] [address] Corin Doyle MD 230 [place] [address] Social History Tobacco Use Types Packs/Day Years [...] Description 08/06/2025 3:30 PM EST Office Visit [facility] MEDICINE [address] [place] [address] Corin Doyle MD [address] [place] [address] documented as of this encounter Visit Diagnoses Not on filedocumented in this encounter Additional Health Concerns Assessment Noted Time PHQ-9 Depression Total Score: 0 11/24/19 23 3:58 PM EDT documented as of this encounter Care Teams District Plant Superintendent Relationship Specialty Start Date End Date Corin Doyle MD [address] [place] [address] PCP - General Family Medicine 07/18/18 Sam Peace, PharmD [address] [place] [address] Pharmacist Pharmacy 03/06/25 06/30/25 Danay Carmen Information Management SpecialistAgricultural Science Professor 12/09/23 Danay Carmen Information Management SpecialistAgricultural Science Professor 08/27/24 documented as of this encounter
--- OUTSIDE RECORDS SUMMARY | 2025-07-03 14:17 | XMS_ITS | Encounter Summary ---
Author Organization [employer] Address [address] [address] [address] 7t [place] [address] Care Team Providers Care Mixer Pigment Name Role Phone Corin Doyle MD Primary Care Provider [phone] Sam Peace PharmD Unavailable [phone] Encounter Details Date Type Department Care Team ([facility] st Contact Info) Description 01/01/2025 Orders Only [facility] MEDICINE 230 [place], [place] [phone] Corin Doyle MD 230 [place] [address] Social History Tobacco Use Types Packs/Day Years [...] Description 08/06/2025 3:30 PM EST Office Visit [facility] MEDICINE [address] [place] [address] Corin Doyle MD [address] [place] [address] documented as of this encounter Visit Diagnoses Not on filedocumented in this encounter Additional Health Concerns Assessment Noted Time PHQ-9 Depression Total Score: 0 08/14/19 3:31 PM EST documented as of this encounter Care Teams Mixer Pigment Relationship Specialty Start Date End Date Corin Doyle MD [address] [place] [address] PCP - General Family Medicine 07/18/18 Sam Peace, ConchisD [address] [place] [address] Pharmacist Pharmacy 03/06/25 06/30/25 Danay Carmen Test Engine MechanicProfessional Fee Coder 12/09/23 Danay Carmen Test Engine MechanicProfessional Fee Coder 08/27/24 documented as of this encounter
--- OUTSIDE RECORDS SUMMARY | 2025-07-03 14:17 | XMS_ITS | Encounter Summary ---
Author Organization [employer] Address [address] [facility] [address] [address] 7t [place] [address] Care Team Providers Care Set Decorator Name Role Phone Corin Doyle MD Primary Care Provider [phone] Sam Peace PharmD Unavailable [phone] Reason for Visit * Reason Onset Date Comments Med Refill 01/25/2024 Encounter Details Date Type Department Care Team (Late st Contact Info) Description 01/25/2024 Refill [facility] MEDICINE 230 [place] [address] Corin Doyle MD 230 [place] [address] Social History Tobacco Use Types Packs/Day Years [...] 3:30 PM EST Office Visit [facility] MEDICINE [address] [place] [address] Corin Doyle MD [address] [place] [address] documented as of this encounter Visit Diagnoses Not on filedocumented in this encounter Additional Health Concerns Assessment Noted Time PHQ-9 Depression Total Score: 0 11/24/19 23 3:58 PM EDT documented as of this encounter Care Teams Set Decorator Relationship Specialty Start Date End Date Corin Doyle MD [address] [place] [address] PCP - General Family Medicine 07/18/18 Sam Peace, PharmD [address] [place] [address] Pharmacist Pharmacy 03/06/25 06/30/25 Danya Carmen Enterprise Application ArchitectDrawing Tender 12/09/23 Danay Carmen Enterprise Application ArchitectDrawing Tender 08/27/24 documented as of this encounter
--- OUTSIDE RECORDS SUMMARY | 2025-07-03 14:17 | XMS_ITS | Encounter Summary ---
Author Organization [employer] Address [address] [facility] [facility] [address] 7t [place] [address] Care Team Providers Care Ditto Machine Operator Name Role Phone Corin Doyle MD Primary Care Provider [phone] Sam Peace PharmD Unavailable [phone] Reason for Visit * Reason Onset Date Comments Med Refill 01/25/2024 Encounter Details Date Type Department Care Team (Late st Contact Info) Description 01/25/2024 Refill [facility] MEDICINE 230 [place] [address] Corin Doyle MD 230 [place] [address] Social History Tobacco Use Types Packs/Day Years [...] Description 08/06/2025 3:30 PM EST Office Visit [facility] MEDICINE [address] [place] [address] Corin Doyle MD [address] [place] [address] documented as of this encounter Visit Diagnoses Not on filedocumented in this encounter Additional Health Concerns Assessment Noted Time PHQ-9 Depression Total Score: 0 11/24/19 23 3:58 PM EDT documented as of this encounter Care Teams Ditto Machine Operator Relationship Specialty Start Date End Date Corin Doyle MD [address] [place] [address] PCP - General Family Medicine 07/18/18 Sam Peace, PharmD [address] [place] [address] Pharmacist Pharmacy 03/06/25 06/30/25 Danay Carmen Chief Arson DivisionCloth Piecer 12/09/23 Danay Carmen Chief Arson DivisionCloth Piecer 08/27/24 documented as of this encounter
--- OUTSIDE RECORDS SUMMARY | 2025-07-03 14:17 | XMS_ITS | Encounter Summary ---
Author Organization [employer] Address [address] [facility] 7t [place] [address] Care Team Providers Care Testboard Operator Name Role Phone Corin Doyle MD Primary Care Provider [phone] Sam Peace PharmD Unavailable [phone] Reason for Visit * Reason Onset Date Comments Med Refill 01/30/2025 Encounter Details Date Type Department Care Team (Late st Contact Info) Description 01/30/2025 Refill [facility] MEDICINE 230 [place] [address] Corin Doyle MD 230 [place] [address] Social History Tobacco Use Types Packs/Day Years [...] Description 08/06/2025 3:30 PM EST Office Visit [facility] MEDICINE [address] [place] [address] Corin Doyle MD [address] [place] [address] documented as of this encounter Visit Diagnoses Not on filedocumented in this encounter Additional Health Concerns Assessment Noted Time PHQ-9 Depression Total Score: 0 08/14/19 25 3:31 PM EST documented as of this encounter Care Teams Testboard Operator Relationship Specialty Start Date End Date Corin Doyle MD [address] [place] [address] PCP - General Family Medicine 07/18/18 Sam Peace, ConhcisD [address] [place] [address] Pharmacist Pharmacy 03/06/25 06/30/25 Danay Carmen Supervisor BlastingLine Repairer 12/09/23 Danay Carmen Supervisor BlastingLine Repairer 08/27/24 documented as of this encounter
--- OUTSIDE RECORDS SUMMARY | 2025-07-03 14:17 | XMS_ITS | Encounter Summary ---
Author Organization [employer] Address [address] [facility] [facility] [address] 7t [place] [address] Care Team Providers Care Second Facing Baster Name Role Phone Corin Doyle MD Primary Care Provider [phone] Sam Peace PharmD Unavailable [phone] Reason for Visit * Reason Onset Date Comments Med Refill 02/19/2024 Encounter Details Date Type Department Care Team (Late st Contact Info) Description 02/19/2024 Refill [facility] MEDICINE 230 [place] [address] Gabriela López MD 230 [place], [place] [phone] Lumbar sprain, initial encounter Social History Tobacco [...] 08/06/2025 3:30 PM EST Office Visit [facility] MEDICINE [address] [place] [address] Corin Doyle MD [address] [place] [address] documented as of this encounter Visit Diagnoses Diagnosis Lumbar sprain, initial encounter documented in this encounter Additional Health Concerns Assessment Noted Time PHQ-9 Depression Total Score: 0 11/24/19 23 3:58 PM EDT documented as of this encounter Care Teams Second Facing Baster Relationship Specialty Start Date End Date Corin Doyle MD [address] [place] [address] PCP - General Family Medicine 07/18/18 Sam Peace, PharmD [address] [place] [address] Pharmacist Pharmacy 03/06/25 06/30/25 Danay Carmen Hunting And Fishing GuideStitching Machine Feeder Or Offbearer 12/09/23 Danay Carmen Hunting And Fishing GuideStitching Machine Feeder Or Offbearer 08/27/24 documented as of this encounter
--- OUTSIDE RECORDS SUMMARY | 2025-07-03 14:17 | XMS_ITS | Encounter Summary ---
Author Organization [employer] Address [address] [facility] 7t [place] [address] Care Team Providers Care Director Of Trauma Name Role Phone Corin Doyle MD Primary Care Provider [phone] Sam Peace PharmD Unavailable [phone] Reason for Visit * Reason Comments Med Change Request Encounter Details Date Type Department Care Team ([facility] st Contact Info) Description 01/08/[address] [facility] MEDICINE 230 [place], [place] [phone] Corin Doyle MD 230 [place], [place] [phone] Social History Tobacco Use Types Packs/Day Years [...] Description 08/06/2025 3:30 PM EST [address] [facility] MEDICINE [address] [place] [address] Corin Doyle MD [address] [place] [address] documented as of this encounter Visit Diagnoses Not on filedocumented in this encounter Additional Health Concerns Assessment Noted Time PHQ-9 Depression Total Score: 0 11/24/19 23 3:58 PM EDT documented as of this encounter Care Teams Director Of Trauma Relationship Specialty Start Date End Date Corin Doyle MD [address] [place] [address] PCP - General Family Medicine 07/18/18 Sam Peace, PharmD [address] [place] [address] Pharmacist Pharmacy 03/06/25 06/30/25 Danay Carmen Communications Department HeadTechnical Manager 12/09/23 Danay Carmen Communications Department HeadTechnical Manager 08/27/24 documented as of this encounter
--- OUTSIDE RECORDS SUMMARY | 2025-07-03 14:18 | XMS_ITS | Encounter Summary ---
Author Organization [employer] Address [address] 7t [place] [address] Care Team Providers Care Unix Manager Name Role Phone Corin Doyle MD Primary Care Provider [phone] Sam Peace PharmD Unavailable [phone] Reason for Visit * Reason Comments Med Refill Encounter Details Date Type Department Care Team ([facility] st Contact Info) Description 11/07/2023 Refill [facility] 230 [place], [place] [phone] Eddie Guerrero MD 230 [place], [place] [phone] Social History Tobacco Use Types Packs/Day Years [...] Description 08/06/2025 3:30 PM EST Office Visit [facility] MEDICINE [address] [place] [address] Corin Doyle MD [address] [place] [address] documented as of this encounter Visit Diagnoses Not on filedocumented in this encounter Additional Health Concerns Assessment Noted Time PHQ-9 Depression Total Score: 0 11/24/19 23 3:58 PM EDT documented as of this encounter Care Teams Unix Manager Relationship Specialty Start Date End Date Corin Doyle MD [address] [place] [address] PCP - General Family Medicine 07/18/18 Sam Peace, PharmD [address] [place] [address] Pharmacist Pharmacy 03/06/25 06/30/25 Danay Carmen Mission Systems EngineerOrthopedic Nurse Practitioner 12/09/23 Danay Carmen Mission Systems EngineerOrthopedic Nurse Practitioner 08/27/24 documented as of this encounter
--- OUTSIDE RECORDS SUMMARY | 2025-07-03 14:18 | XMS_ITS | Encounter Summary ---
Author Organization [employer] Address [address] [facility] [address] 7t [place] [address] Care Team Providers Care Breadman Name Role Phone Corin Doyle MD Primary Care Provider [phone] Sam Peace PharmD Unavailable [phone] Reason for Visit * Reason Onset Date Comments Med Refill 11/01/2023 Encounter Details Date Type Department Care Team (Late st Contact Info) Description 11/01/2023 Refill [facility] MEDICINE 230 [place] [address] Corin Doyle MD 230 [place] [address] Social History Tobacco Use Types Packs/Day Years [...] Description 08/06/2025 3:30 PM EST Office Visit [facility] MEDICINE [address] [place] [address] Corin Doyle MD [address] [place] [address] documented as of this encounter Visit Diagnoses Not on filedocumented in this encounter Additional Health Concerns Assessment Noted Time PHQ-9 Depression Total Score: 0 11/24/19 23 3:58 PM EDT documented as of this encounter Care Teams Breadman Relationship Specialty Start Date End Date Corin Doyle MD [address] [place] [address] PCP - General Family Medicine 07/18/18 Sam Peace, PharmD [address] [place] [address]27 Pharmacist Pharmacy 03/06/25 06/30/25 Danay Carmen Scorer HelperSupervisor Tumbling And Rolling 12/09/23 Danay Carmen Scorer HelperSupervisor Tumbling And Rolling 08/27/24 documented as of this encounter
--- OUTSIDE RECORDS SUMMARY | 2025-07-03 14:18 | XMS_ITS | Encounter Summary ---
Author Organization [employer] Address [address] 7t [place] [address] Care Team Providers Care Senior Telecommunications Specialist Name Role Phone Corin Doyle MD Primary Care Provider [phone] Sam Peace PharmD Unavailable [phone] Encounter Details Date Type Department Care Team ([facility] st Contact Info) Description 05/04/2024 Orders Only [facility] [address] [place], [place] [phone] Corin Doyle MD [address] [place] [address] Primary hypertension (Primary Dx); Acquired hypothyroidism; Hypokalemia; [...] Description 08/06/2025 3:30 PM EST Office Visit [facility] [address] [place], [place] [phone] Corin Doyle MD [address] [place] [address] documented as of this encounter Procedures Procedure [...] 4:05 PM EST) Creatinine, Urine 312.90 mg/dL [facility] Microalbumin Urine 15.0 mg/L [facility] Microalbum Creatinine Ratio Ur 4.7 <30 ug/mg cr [facility] Comment:Albumin/Creatinine R atio Reference Ranges: Normal: < 30 ug/mg creatinine Microalbuminuria: 30 - 300 ug/mg creatinineClinical Albuminuria: > 300 ug/mg creatinine Urine 08/14/2024 4:05 PM EST 08/14/2024 5:43 PM EST Corin Doyle MD LAB URINE ORDERABLES Final Resul t [facility] [address] [place] [phone] * Hemoglobin A1c (08/14/2024 4:05 PM EST) Hemoglobin A1c 5.1 <6.0 % [facility] Comment:Hemoglobin A1C Refer ence Range Adults: 4.8 - 6.0 % Non diabetic: < 6.0 % Goal: < 7.0 %Additional Action Suggested: > 8.0 %Note: Hemoglobin A1c results are invalid for patients with abnormal amounts of HbF. Blood transfusions may impact the HbA1c concentration in the patient sample. Estimated Average Glucose 100 mg/dL [facility] Comment:eAG = Estimated ave rage glucose which is %A1C expressed asaverage glucose, using the formula of the P4F-YaipujuZtjukrl Glucose study (ADAG), Diabetes Care, Vol.31,#8,2007 Blood Venous blood specimen / Unknown 08/14/2024 4:05 PM EST 08/14/2024 5:33 PM EST Corin Doyle MD LAB BLOOD ORDERABLES Final Resul t Performing Organization Address City/[facility]/ZIP Co de Phone Number [facility] [address] [place] [phone] * Lipid Panel with Reflex to Direct LDL (08/14/2024 4:05 PM EST) Triglycerides 114 <150 mg/dL [facility] Comment:Desirable Triglyceri de: less than 150 mg/dLBorderline High Triglyceride 150-199 mg/dLHigh Triglyceride: 200-499 mg/dLVery High Triglyceride: greater than or equal to 5OO mg/dL Cholesterol 146 <200 mg/dL [facility] Comment:Desirable Cholestero l: less than 200 mg/dLBorderline High Cholesterol: 200-239 mg/dLHigh Cholesterol: greater than 239 mg/dL LDL Cholesterol Calculated 83 <100 mg/dL [facility] Comment:Desirable LDL: less than 100 mg/dLNear Optimal/Above Optimal LDL: 110- 129 mg/dLBorderline High LDL: 130-159 mg/dLHigh LDL: 160-189 mg/dLVery High LDL: greater than or equal to 190 mg/dL HDL Cholesterol 41 >40 mg/dL [facility] Comment:Desirable HDL: great er than 40 mg/dL Note: This HDL assay may give artificially low results in patients with liver disease. Blood 08/14/2024 4:05 PM EST 08/14/2024 5:33 PM EST Corin Doyle MD LAB BLOOD ORDERABLES Final Resul t [facility] [address] [place] [phone] * Magnesium (08/14/2024 4:05 PM EST) Magnesium 2.2 1.6 - 2.6 mg/dL [facility] Blood Venous blood specimen / Unknown 08/14/2024 4:05 PM EST 08/14/2024 5:33 PM EST us Corin Doyle MD LAB BLOOD ORDERABLES Final Resul t Performing Organization Address [facility] Co de Phone Number [facility] [address] [place] [phone] * Uric acid (08/14/2024 4:05 PM EST) Uric Acid 4.5 2.4 - 5.7 mg/dL [facility] Blood Venous blood specimen / Unknown 08/14/2024 4:05 PM EST 08/14/2024 5:33 PM EST us Corin Doyle MD LAB BLOOD ORDERABLES Final Resul t Performing Organization Address [facility] Co de Phone Number [facility] [address] [place] [phone] * TSH with Reflex to Free T4 (08/14/2024 4:05 PM EST) TSH reflex Free T4 3.48 0.32 - 4.0 uIU/mL [facility] Blood 08/14/2024 4:05 PM EST 08/14/2024 5:33 PM EST us Corin Doyle MD LAB BLOOD ORDERABLES Final Resul t Performing Organization Address [facility] Co de Phone Number [facility] [address] [place] [phone] * (ABNORMAL) Comprehensive Metabolic Panel (08/14/2024 4:05 PM EST) Sodium 143 135 - 145 mmol/L [facility] Potassium 3.1(L) 3.3 - 5.1 mmol/L [facility] Chloride 106 96 - 108 mmol/L [facility] Carbon Dioxide 30(H) 22 - 29 mmol/L [facility] Anion Gap 10(L) 12 - 20 [facility] Urea Nitrogen (BUN) 14 9 - 16 mg/dL [facility] Creatinine, Serum 0.70 0.5 - 1.4 mg/dL [facility] Estimated Glomerular Filt Rate >60 [facility] Comment:Chronic Kidney Disea se: Estimated GFR < 60 mL/min/1.15w4Vvmlfh Kidney Disease: Estimated GFR < 15 mL/min/1.73m2 Glucose 72 60 - 115 mg/dL [facility] Calcium 9.2 8.4 - 10.2 mg/dL [facility] Bilirubin, Total 0.2 0.0 - 1.0 mg/dL [facility] Aspartate Amino Transferase 21 5 - 31 U/L [facility] Alanine Aminotransferase 24 0 - 31 U/L [facility] Total Protein 7.7 6.5 - 8.0 g/dL [facility] Albumin Level 4.1 3.5 - 5.0 g/dL [facility] Alkaline Phosphatase 109 39 - 117 U/L [facility] Blood Venous blood specimen / Unknown 08/14/2024 4:05 PM EST 08/14/2024 5:33 PM EST us Corin Doyle MD LAB BLOOD ORDERABLES Final Resul t [facility] [address] [place] [phone] documented in this encounter Visit Diagnoses [...] as of this encounter Care Teams Senior Telecommunications Specialist Relationship Specialty Start Date End Date Corin Doyle MD [address] [place] [address] PCP - General Family Medicine 07/18/18 Sam Peace, PharmD [address] [place] [address] Pharmacist Pharmacy 03/06/25 06/30/25 Danay Carmen Motorcycle FabricatorPublic Health Sanitarian Technician 12/09/23 Danay Carmen Motorcycle FabricatorPublic Health Sanitarian Technician 08/27/24 documented as of this encounter
--- OUTSIDE RECORDS SUMMARY | 2025-07-03 14:18 | XMS_ITS | Encounter Summary ---
Author Organization [employer] Address [address] 7t [place] [address] Care Team Providers Care High Lighter Name Role Phone Corin Doyle MD Primary Care Provider [phone] Reason for Visit * Reason Comments Med Refill Encounter Details Date Type Department Care Team ([facility] Contact Info) Description 07/03/2025 Refill [facility] [address] [place], [place] [phone] Corin Doyle MD [address] [place], [place] [phone] Social History Tobacco Use Types Packs/Day Years [...] 3:30 PM EST Office Visit [facility] [address] [place] [address] Corin Doyle MD [address] [place] [address] documented as of this encounter Visit Diagnoses Not on filedocumented in this encounter Additional Health Concerns Assessment Noted Time PHQ-9 Depression Total Score: 0 08/14/19 3:31 PM EST documented as of this encounter Care Teams High Lighter Relationship Specialty Start Date End Date Corin Doyle MD [address] [place] [address] PCP - General Family Medicine 07/18/18 Danay Carmen Baler OperatorThread Dresser 12/09/23 Danay Carmen Baler OperatorThread Dresser 08/27/24 documented as of this encounter
--- OUTSIDE RECORDS SUMMARY | 2025-07-03 14:18 | XMS_ITS | Encounter Summary ---
Author Organization [employer] Address [address] 7t [place] [address] Care Team Providers Care Hockey Scout Name Role Phone Corin Doyle MD Primary Care Provider [phone] Sam Peace PharmD Unavailable [phone] Reason for Visit * Reason Onset Date Comments Med Refill 03/29/2024 Encounter Details Date Type Department Care Team (Late st Contact Info) Description 03/29/2024 Refill [facility] [address] [place] [address] Corin Doyle MD [address] [place] [address] Social History Tobacco Use Types Packs/Day Years [...] Description 08/06/2025 3:30 PM EST Office Visit [facility] [address] [place] [address] Corin Doyle MD [address] [place] [address] documented as of this encounter Visit Diagnoses Not on filedocumented in this encounter Additional Health Concerns Assessment Noted Time PHQ-9 Depression Total Score: 0 11/24/19 23 3:58 PM EDT documented as of this encounter Care Teams Hockey Scout Relationship Specialty Start Date End Date Corin Doyle MD [address] [place] [address] PCP - General Family Medicine 07/18/18 Sam Peace, PharmD [address] [place] [address] Pharmacist Pharmacy 03/06/25 06/30/25 Danay Carmen Customer Retention RepresentativePond Scaler 12/09/23 Danay Carmen Customer Retention RepresentativePond Scaler 08/27/24 documented as of this encounter
--- OUTSIDE RECORDS SUMMARY | 2025-07-03 14:18 | XMS_ITS | Encounter Summary ---
Author Organization [employer] Address [address]t [place] [address] Care Team Providers Care Lead Software Developer Name Role Phone Corin Doyle MD Primary Care Provider [phone] Sam Peace PharmD Unavailable [phone] Reason for Visit * Reason Onset Date Comments Referral 10/18/2023 Encounter Details Date Type Department Care Team ([facility] st Contact Info) Description 10/18/[address] [facility] [address] [place] [address] Corin Doyle MD 230 [place] [address] Referral Social History Tobacco Use Types Packs/Day [...] - 10/18/2023 3:42 PM EDT Tc from [facility] with [facility] calling in regards referral for cardiology, stated pt discussed referral on last appt with PCP on 08/08 and the referral is to control high blood pressure. documented in this encounter Plan of Treatment Upcoming Encounters Date Type Department Care Team (Late st Contact Info) Description 08/06/2025 3:30 PM EST Office [address] [facility] [address] [place] [address] Corin Doyle MD [address] [place] [address] documented as of this encounter Visit Diagnoses Not on filedocumented in this encounter Additional Health Concerns Assessment Noted Time PHQ-9 Depression Total Score: 0 11/24/19 23 3:58 PM EDT documented as of this encounter Care Teams Lead Software Developer Relationship Specialty Start Date End Date Corin Doyle MD [address] [place] [address] PCP - General Family Medicine 07/18/18 Sam Peace, ConchisD [address] [place] [phone] Pharmacist Pharmacy 03/06/25 06/30/25 Danay Carmen Carpenter ApprenticeFagoting Machine Operator 12/09/23 Danay Carmen Carpenter ApprenticeFagoting Machine Operator 08/27/24 documented as of this encounter
--- OUTSIDE RECORDS SUMMARY | 2025-07-03 14:18 | XMS_ITS | Encounter Summary ---
Author Organization [employer] Address [address] 7[address] [place] [address] Care Team Providers Care Production Expediter Name Role Phone Corin Doyle MD Primary Care Provider [phone] Sam Peace PharmD Unavailable [phone] Reason for Visit * Reason Onset Date Comments Med Refill 11/14/2023 Encounter Details Date Type Department Care Team (Late st Contact Info) Description 11/14/2023 Refill [facility] [address] [place] [address] Corin Doyle MD [address] [place] [address] Rash Social History Tobacco Use Types Packs/Day [...] Description 08/06/2025 3:30 PM EST Office Visit [facility] [address] [place] [address] Corin Doyle MD [address] [place] [address] documented as of this encounter Visit Diagnoses Diagnosis Rash Rash and other nonspecific skin eruption documented in this encounter Additional Health Concerns Assessment Noted Time PHQ-9 Depression Total Score: 0 11/24/19 23 3:58 PM EDT documented as of this encounter Care Teams Production Expediter Relationship Specialty Start Date End Date Corin Doyle MD [address] [place] [address] PCP - General Family Medicine 07/18/18 Sam Peace, PharmD [address] [place] [address] Pharmacist Pharmacy 03/06/25 06/30/25 Danay Carmen Water Resources Project ManagerAccess Consultant 12/09/23 Danay Carmen Water Resources Project ManagerAccess Consultant 08/27/24 documented as of this encounter
--- OUTSIDE RECORDS SUMMARY | 2025-07-03 14:18 | XMS_ITS | Encounter Summary ---
Author Organization [employer] Address [address] 7t [place] [address] Care Team Providers Care Music Historian Name Role Phone Corin Doyle MD Primary Care Provider [phone] Sam Peace PharmD Unavailable [phone] Reason for Visit * Reason Onset Date Comments Med Refill 04/20/2024 Encounter Details Date Type Department Care Team (Late st Contact Info) Description 04/20/2024 Refill [facility] [address] [place] [address] Corin Doyle MD 230 [place] [address] Social History Tobacco Use Types Packs/Day Years [...] Description 08/06/2025 3:30 PM EST Office Visit [facility] [address] [place] [address] Corin Doyle MD [address] [place] [address] documented as of this encounter Visit Diagnoses Not on filedocumented in this encounter Additional Health Concerns Assessment Noted Time PHQ-9 Depression Total Score: 0 11/24/19 23 3:58 PM EDT documented as of this encounter Care Teams Music Historian Relationship Specialty Start Date End Date Corin Doyle MD [address] [place] [address] PCP - General Family Medicine 07/18/18 Sam Peace, PharmD [address] [place] [address] Pharmacist Pharmacy 03/06/25 06/30/25 Danay Carmen Credit Union TellerRetail Sales Professional 12/09/23 Danay Carmen Credit Union TellerRetail Sales Professional 08/27/24 documented as of this encounter
--- OUTSIDE RECORDS SUMMARY | 2025-07-03 14:18 | XMS_ITS | Encounter Summary ---
Author Organization [employer] Address [address] 7t [place] [address] Care Team Providers Care Contact Lens Manufacturer Name Role Phone Corin Doyle MD Primary Care Provider [phone] Sam Peace PharmD Unavailable [phone] Reason for Visit * Reason Onset Date Comments Nurse Triage 05/25/2024 Encounter Details Date Type Department Care Team ([facility] st Contact Info) Description 05/25/2024 Telephone [facility] 230 [place] [address] Corin Doyle MD 230 [place] [address] Nurse Triage Social History Tobacco Use Types [...] theER now. RN advises pt to call [facility] back when she is discharged in order [...] Description 08/06/2025 3:30 PM EST Office Visit [facility] 230 [place], [place] [phone] Corin Doyle MD [address] [place] [address] documented as of this encounter Visit Diagnoses Not on filedocumented in this encounter Additional Health Concerns Assessment Noted Time PHQ-9 Depression Total Score: 0 11/24/19 23 3:58 PM EDT documented as of this encounter Care Teams Contact Lens Manufacturer Relationship Specialty Start Date End Date Corin Doyle MD [address] [place] [address] PCP - General Family Medicine 07/18/18 Sam Peace, ConchisD 230 [place] [address] Pharmacist Pharmacy 03/06/25 06/30/25 Danay Carmen Music JournalistAoc Plans Intelligence Officer 12/09/23 Danay Carmen Music JournalistAoc Plans Intelligence Officer 08/27/24 documented as of this encounter
--- OUTSIDE RECORDS SUMMARY | 2025-07-03 14:18 | XMS_ITS | Encounter Summary ---
Author Organization [employer] Address [address] 7t [place] [address] Care Team Providers Care Teacher Vocal Name Role Phone Corin Doyle MD Primary Care Provider [phone] Sam Peace PharmD Unavailable [phone] Reason for Visit * Reason Onset Date Comments Med Refill 04/02/2024 Encounter Details Date Type Department Care Team (Late st Contact Info) Description 04/02/2024 Refill [facility] 230 [place] [address] Corin Doyle MD 230 [place] [address] Social History Tobacco Use Types Packs/Day Years [...] Description 08/06/2025 3:30 PM EST Office Visit [facility] [address] [place] [address] Corin Doyle MD [address] [place] [address] documented as of this encounter Visit Diagnoses Not on filedocumented in this encounter Additional Health Concerns Assessment Noted Time PHQ-9 Depression Total Score: 0 11/24/19 23 3:58 PM EDT documented as of this encounter Care Teams Teacher Vocal Relationship Specialty Start Date End Date Corin Doyle MD [address] [place] [address] PCP - General Family Medicine 07/18/18 Sam Peace, PharmD [address] [place] [address] Pharmacist Pharmacy 03/06/25 06/30/25 Danay Carmen Electronic Equipment Set Up OperatorFleecer 12/09/23 Danay Carmen Electronic Equipment Set Up OperatorFleecer 08/27/24 documented as of this encounter
--- OUTSIDE RECORDS SUMMARY | 2025-07-03 14:18 | XMS_ITS | Encounter Summary ---
Author Organization [employer] Address [address] [facility] 7t [place] [address] Care Team Providers Care Collar Sewer Name Role Phone Corin Doyle MD Primary Care Provider [phone] Sam Peace PharmD Unavailable Reason for Visit * Reason Onset Date Comments Med Refill 03/01/2025 Encounter Details Date Type Department Care Team (Late st Contact Info) Description 03/01/2025 Refill [facility] 230 [place] [address] Corin Doyle MD 230 [place] [address] Social History Tobacco Use Types Packs/Day Years [...] 3:30 PM EST Office Visit [facility] [address] [place] [address] Corin Doyle MD [address] [place] [address] documented as of this encounter Visit Diagnoses Not on filedocumented in this encounter Additional Health Concerns Assessment Noted Time PHQ-9 Depression Total Score: 0 08/14/19 25 3:31 PM EST documented as of this encounter Care Teams Collar Sewer Relationship Specialty Start Date End Date Corin Doyle MD [address] [place] [address] PCP - General Family Medicine 07/18/18 Sam Peace, ConchisD [address] [place] [address] Pharmacist Pharmacy 03/06/25 06/30/25 Danay Carmen Traffic Signal Supervisor MaintenanceBacon De Rinder 12/09/23 Danay Carmen Traffic Signal Supervisor MaintenanceBacon De Rinder 08/27/24 documented as of this encounter
--- OUTSIDE RECORDS SUMMARY | 2025-07-03 14:18 | XMS_ITS | Encounter Summary ---
Author Organization [employer] Address [address] [place] [address] Care Team Providers Care Hand Suture Winder Name Role Phone Corin Doyle MD Primary Care Provider [phone] Sam Peace PharmD Unavailable [phone] Encounter Details Date Type Department Care Team ([facility] st Contact Info) Description 08/16/2023 Orders Only [facility] 230 [place], [place] [phone] Eddie Guerrero MD [address] [place], [place] [phone] Social History Tobacco Use Types Packs/Day Years [...] Description 08/06/2025 3:30 PM EST Office Visit [facility] [address] [place] [address] Corin Doyle MD [address] [place] [address] documented as of this encounter Visit Diagnoses Not on filedocumented in this encounter Additional Health Concerns Assessment Noted Time PHQ-9 Depression Total Score: 0 11/24/19 23 3:58 PM EDT documented as of this encounter Care Teams Hand Suture Winder Relationship Specialty Start Date End Date Corin Doyle MD [address] [place] [address] PCP - General Family Medicine 07/18/18 Sam Peace, PharmD [address] [place] [phone] Pharmacist Pharmacy 03/06/25 06/30/25 Danay Carmen Employment AssistantStore Facility Technician 12/09/23 Danay Carmen Employment AssistantStore Facility Technician 08/27/24 documented as of this encounter
--- OUTSIDE RECORDS SUMMARY | 2025-07-03 14:18 | XMS_ITS | Encounter Summary ---
Author Organization [employer] Address [address] 7[address] [place] [address] Care Team Providers Care Teacher Of The Deaf/Hard Of Hearing Name Role Phone Corin Doyle MD Primary Care Provider [phone] Reason for Visit * Reason Onset Date Comments Med Refill 07/03/2025 Encounter Details Date Type Department Care Team ([facility] Contact Info) Description 07/03/[address] [facility] 230 [place], [place] [phone] Corin Doyle MD 230 [place], [place] [phone] Social History Tobacco Use Types Packs/Day Years [...] Description 08/06/2025 3:30 PM EST Office Visit [facility] 230 [place] [address] Corin Doyle MD [address] [place] [address] documented as of this encounter Visit Diagnoses Not on filedocumented in this encounter Additional Health Concerns Assessment Noted Time PHQ-9 Depression Total Score: 0 08/14/19 3:31 PM EST documented as of this encounter Care Teams Teacher Of The Deaf/Hard Of Hearing Relationship Specialty Start Date End Date Corin Doyle MD [address] [place] [address] PCP - General Family Medicine 07/18/18 Danay Carmen MultigrapherManager Wastewater 12/09/23 Danay Carmen MultigrapherManager Wastewater 08/27/24 documented as of this encounter
--- OUTSIDE RECORDS SUMMARY | 2025-07-03 14:18 | XMS_ITS | Encounter Summary ---
Author Organization [employer] Address [address] [address] [facility] [address] [facility] [address] [place] [address] Care Team Providers Care Veneer Sander Name Role Phone Corin Doyle MD Primary Care Provider [phone] Reason for Visit * Reason Onset Date Comments Med Refill 07/01/2025 Encounter Details Date Type Department Care Team ([facility] st Contact Info) Description 07/01/2025 Refill [facility] [address] [place], [place] [phone] Corin Doyle MD [address] [place] [address] Primary hypertension Social History Tobacco Use Types Packs/Day Years [...] encounter Miscellaneous Notes * Telephone Encounter - Sam Peace PharmD - 07/01/2025 4:12 PM EST Patient graduated from [facility] hypertension at this time and agrees follow up with PCP in 4 weeks as scheduled. Feel free to refer back to services if needed in the future. Pharmacist queued losartan 25mg po daily to PCP to takeover prescribing. documented in this encounter Plan of Treatment Upcoming Encounters Date Type Department Care Team (Late st Contact Info) Description 08/06/2025 3:30 PM EST Office Visit [facility] [address] [place] [address] Corin Doyle MD [address] [place] [address] documented as of this encounter Visit Diagnoses Diagnosis Primary hypertension Unspecified essential hypertension documented in this encounter Additional Health Concerns Assessment Noted Time PHQ-9 Depression Total Score: 0 08/14/19 3:31 PM EST documented as of this encounter Care Teams Veneer Sander Relationship Specialty Start Date End Date Corin Doyle MD [address] [place] [address] PCP - General Family Medicine 07/18/18 Danay Carmen Deputy SheriffBoot Lace Cutter Machine 12/09/23 Danay Carmen Deputy SheriffBoot Lace Cutter Machine 08/27/24 documented as of this encounter
--- OUTSIDE RECORDS SUMMARY | 2025-07-03 14:18 | XMS_ITS | Encounter Summary ---
Author Organization [employer] Address [address] [address] [address] [place] [address] Care Team Providers Care Rat Poisoner Name Role Phone Corin Doyle MD Primary Care Provider [phone] Encounter Details Date Type Department Care Team (Latest Contact Info) Description 07/01/2025 Travel Social History Tobacco Use Types Packs/Day [...] Description 08/06/2025 3:30 PM EST Office Visit [facility] [address] [place] [address] Corin Doyle MD [address] [place] [address] documented as of this encounter Visit Diagnoses Not on filedocumented in this encounter Additional Health Concerns Assessment Noted Time PHQ-9 Depression Total Score: 0 08/14/19 3:31 PM EST documented as of this encounter Care Teams Rat Poisoner Relationship Specialty Start Date End Date Corin Doyle MD [address] [place] [address] PCP - General Family Medicine 07/18/18 Danay Carmen Trouble Shooting MechanicNetwork Systems Operator 12/09/23 Danay Carmen Trouble Shooting MechanicNetwork Systems Operator 08/27/24 documented as of this encounter
--- OUTSIDE RECORDS SUMMARY | 2025-07-03 14:18 | XMS_ITS | Encounter Summary ---
Author Organization [employer] Address [address] [place] [address] 7t [place] [address] Care Team Providers Care Electrician Sound Name Role Phone Corin Doyle MD Primary Care Provider [phone] Sam Peace PharmD Unavailable [phone] Reason for Referral * Imaging (Routine) - Closed Specialty Diagnoses / Procedures Referred By Contac t Referred To Contact Radiology Diagnoses Breast cancer screening by mammogram Procedures BI Mammogram Screening Tomosynthesis Bilateral Corin Doyle MD [address] [place] [phone] Phone: tel: fax: [facility] [address] [place] [phone] Phone: tel: fax: Referral ID Status Reason Start Date Expiration Date Visits Re quested Visits Authorized [id number] Closed 11/01/2023 10/31/2024 1 1 * Consultation (Routine) - Canceled Specialty Diagnoses / Procedures Referred By Contac t Referred To Contact Gastroenterology Diagnoses Colon cancer screening Corin Doyle MD [address] [place] [address] Phone: tel: fax: Referral ID Status Reason Start Date Expiration Date Visits Requested Visits Authorized [id number] Canceled Specialty Services Required 11/01/2023 10/31/2024 1 1 * Imaging (Routine) - Closed Specialty Diagnoses / Procedures Referred By Contac t Referred To Contact Radiology Diagnoses Elevated liver enzymes Procedures US Abdomen Comp w elastography Corin Doyle MD [address] [place] [address] Phone: tel: fax: [address] [phone] Phone: tel: fax: Referral ID Status Reason Start Date Expiration Date Visits Re quested Visits Authorized [id number] Closed 11/01/2023 10/31/2024 1 1 Encounter Details Date Type Department Care Team (Late st Contact Info) Description 11/01/2023 Orders Only [facility] [address] [place] [address] Corin Doyle MD [address] [place], [place] [phone] Elevated liver enzymes (Primary Dx); Breast cancer [...] Description 08/06/2025 3:30 PM EST Office Visit [facility] [address] [place] [address] Corin Doyle MD [address] [place] [address] [phone] Scheduled Referrals Name Type Priority Associated Diagnoses [...] PM EDT Narrative 12/30/2023 5:50 AM EDT [facility] [place], [place] [address] Mammography Report Signed Patient: Janelle León MR#: [id number] : 1975 Acct:[id number] Age/Sex: 48 / F ADM Date: 11/29/23 Loc: [facility] Attending Dr: Corin Doyle MD Ordering Physician: Corin Doyle MD Results: 0Incomple te: Needs Additional Imaging Evaluation Date of Service: 11/29/23 Follow Up: Additional Imagi ng Procedure(s): MM tomosynthesis screening BI Accession Number(s): [id number] cc: Corin Doyle MD EXAMINATION: MM SCREENING [...] in OV> 12/30/23 0546 DD/ 1557 TD/TT: Orthopedic Mechanic: Procedure Note Donotuseinterpreter, Image - 12/30/2023 [facility] [address] [place] [address] Mammography Report Signed Patient: Janelle León GMR#: [id number] : 1975Acct:[id number] Age/Sex: 48 / FADM Date: 11/29/23 Loc: [facility]I Attending Dr: Corin Doyle MD Ordering Physician: Corin Doyle MDResults: 0Incomple te: Needs Additional Imaging Evaluation Date of Service: 11/29/23Follow Up: Additional Imagi ng Procedure(s): MM tomosynthesis screening BI Accession Number(s): [id number] cc: Corin Doyle MD EXAMINATION: MM SCREENING [...] in OV> 12/30/23 0546 DD/ 1557 TD/TT: Orthopedic Mechanic: us Corin Doyle MD IMG BI PROCEDURES Edited Result - Final * US Abdomen Comp w elastography (11/22/2023 11:50 AM EDT) Anatomical Region Laterality Modality Abdomen Ultrasound 11/22/2023 11:5 0 AM EDT Narrative 11/28/2023 5:18 PM EDT [place] [address] Ultrasound Report Signed Patient: Janelle León MR#: [id number] : 1975 Acct:[id number] Age/Sex: 48 / F ADM Date: 11/22/23 Loc: HO.US Attending Dr: Corin Doyle MD Ordering Physician: Corin Doyle MD Date of Service: 11/22/23 Procedure(s): US abdomen comp w elastography Accession Number(s): [id number] cc: Corin Doyle MD EXAMINATION: US COMPLETE [...] in OV> 11/28/23 1714 DD/ 1150 TD/TT: Orthopedic Mechanic: KIMI Procedure Note Donotuseinterpreter, Image - 11/28/2023 [place] [address] Ultrasound Report Signed Patient: Janelle León GMR#: [id number] : 1975Acct:[id number] Age/Sex: 48 / FADM Date: 11/22/23 Loc: HO.US Attending Dr: Corin Doyle MD Ordering Physician: Corin Doyle MD Date of Service: 11/22/23 Procedure(s): US abdomen comp w elastography Accession Number(s): [id number] cc: Corin Doyle MD EXAMINATION: US COMPLETE [...] in OV> 11/28/23 1714 DD/ 1150 TD/TT: Orthopedic Mechanic: KMII Corin Doyle MD IMG US PROCEDURES Final Result * (ABNORMAL) Potassium (11/11/2023 8:41 AM EDT) Potassium 3.2(L) 3.3 - 5.1 mmol/L [facility] Blood Venous blood specimen / Unknown 11/11/2023 8:41 AM EDT 11/11/2023 11:40 AM EDT Corin Doyle MD LAB BLOOD ORDERABLES Final Resul t Performing Organization Address City/State/[facility] Co de Phone Number [facility] [address] [place] [phone] * Hepatitis A,B,C Profile (11/11/2023 8:41 AM EDT) Hepatitis A IgM Nonreactive Nonreactive [facility] Comment:IgM antibodies to GUZMÁN V not detected; does not exclude earlyacute or recovered HAV infection. ~Hepatitis B Surface Antibody REACTIVE Nonreactive [facility] Comment:REACTIVE: > 11.99 mI U/mL Hepatitis B Core Antibody Nonreactive Nonreactive [facility] Hepatitis C Antibody Nonreactive Nonreactive [facility] Comment:Antibodies to HCV no t detected; does not exclude early acuteHCV infection. Hepatitis B Surface Ag Negative Negative [facility] Blood Venous blood specimen / Unknown 11/11/2023 8:41 AM EDT 11/11/2023 11:40 AM EDT Corin Doyle MD LAB BLOOD ORDERABLES Final Resul t [facility] [address] [place], [place] [phone] * (ABNORMAL) CBC auto differential (11/11/2023 8:41 AM EDT) White Blood Count 6.6 4.8 - 10.8 X10*3/uL [facility] Red Blood Count 5.08 4.20 - 5.50 X10*6/uL [facility] Hemoglobin 13.4 12.0 - 16.0 g/dl [facility] Hematocrit 42.1 37.0 - 47.0 % [facility] Mean Corpuscular Volume 82.9 80.0 - 98.0 fL [facility] Mean Corpuscular Hemoglobin 26.4(L) 27.0 - 33.0 pg [facility] Mean Corpuscular HGB Conc 31.8 31.0 - 35.0 g/dl [facility] Red Cell Distribution Width 14.4 11.0 - 16.0 % [facility] Platelet Count 267 160 - 400 X10*3/uL [facility] Mean Platelet Volume 11.0 9.4 - 12.3 fL [facility] Neutrophils Percent Auto 59.9 45 - 73 % [facility] Imm Gran Pct Auto 0.6(H) 0.0 - 0.4 % [facility] Lymphocytes Percent Auto 26.2 20 - 40 % [facility] Monocytes Percent Auto 8.4 2 - 11 % [facility] Eosinophils Percent Auto 3.8 0 - 4 % [facility] Basophils Percent Auto 1.1 0 - 2 % [facility] NRBC Pct Auto 0.0 0.0 - 0.2 /100WBC [facility] Neutrophils Absolute Auto 3.9 2.0 - 8.3 x10*3/uL [facility] Imm Gran Abs Auto 0.04(H) 0.00 - 0.03 X10*3/uL [facility] Lymphocytes Absolute Auto 1.7 1.2 - 4.9 X10*3/uL [facility] Monocytes Absolute Auto 0.6 0.1 - 1.2 X10*3/uL [facility] Eosinophils Absolute Auto 0.3 0.0 - 0.4 X10*3/uL [facility] Basophils Absolute Auto 0.1 0.0 - 0.2 X10*3/uL [facility] NRBC Abs Auto 0.000 0.0 - 0.012 X10*3/uL [facility] Blood Venous blood specimen / Unknown 11/11/2023 8:41 AM EDT 11/11/2023 11:40 AM EDT us Corin Doyle MD LAB BLOOD ORDERABLES Final Resul t [facility] [address] [place] [address] [phone] documented in this encounter Visit Diagnoses Diagnosis Elevated liver enzymes- Primary Other nonspecific abnormal serum enzyme levels Breast cancer screening by mammogram Colon cancer screening Special screening for malignant neoplasms, colon Hypokalemia Hypopotassemia documented in this encounter Additional Health Concerns Assessment Noted Time PHQ-9 Depression Total Score: 0 11/24/19 23 3:58 PM EDT documented as of this encounter Care Teams Electrician Sound Relationship Specialty Start Date End Date Corin Doyle MD [address] [place] [address] PCP - General Family Medicine 07/18/18 Sam Peace, PharmD [address] [place] [address] Pharmacist Pharmacy 03/06/25 06/30/25 Danay Carmen Medical Management SpecialistGarage Helper 12/09/23 Danay Carmen Medical Management SpecialistGarage Helper 08/27/24 documented as of this encounter
--- OUTSIDE RECORDS SUMMARY | 2025-07-03 14:18 | XMS_ITS | Encounter Summary ---
Author Organization [employer] Address [address] [place] [address] Care Team Providers Care Biomedical Engineering Director Name Role Phone Corin Doyle MD Primary Care Provider [phone] Sam Peace PharmD Unavailable [phone] Reason for Visit * Reason Onset Date Comments Med Refill 12/03/2024 Encounter Details Date Type Department Care Team (Late st Contact Info) Description 12/03/2024 Refill [facility] [address] [place] [address] Eddie Guerrero MD [address] [place] [address] Moderate persistent asthma with acute exacerbation Social [...] Description 08/06/2025 3:30 PM EST Office Visit [facility] [address] [place] [phone] Corin Doyle MD [address] [place] [phone] documented as of this encounter Visit Diagnoses Diagnosis Moderate persistent asthma with acute exacerbation documented in this encounter Additional Health Concerns Assessment Noted Time PHQ-9 Depression Total Score: 0 08/14/19 25 3:31 PM EST documented as of this encounter Care Teams Biomedical Engineering Director Relationship Specialty Start Date End Date Corin Doyle MD [address] [place] [address] PCP - General Family Medicine 07/18/18 Sam Peace, PharmD [address] [place] [phone] Pharmacist Pharmacy 03/06/25 06/30/25 Danay Carmen Inventory Specialist ManagerWeaver Dobby Loom 12/09/23 Danay Carmen Inventory Specialist ManagerWeaver Dobby Loom 08/27/24 documented as of this encounter
--- OUTSIDE RECORDS SUMMARY | 2025-07-03 14:18 | XMS_ITS | Encounter Summary ---
Author Organization [employer] Address [address] [facility] [address] [place] [address] Care Team Providers Care Butcher Assistant Name Role Phone Corin Doyle MD Primary Care Provider [phone] Sam Peace PharmD Unavailable [phone] Reason for Visit * Reason Onset Date Comments Med Refill 11/02/2023 Encounter Details Date Type Department Care Team (Late st Contact Info) Description 11/02/2023 Refill [facility] [address] [place] [address] Corin Doyle MD [address] [place] [address] Social History Tobacco Use Types Packs/Day Years [...] instructions back to me. Also sent on [employer] so pt has them written out since she is active on [employer] scheduled for 11/15 with [facility] nurses for blood pressure check. Pt verbalized [...] Description 08/06/2025 3:30 PM EST Office Visit [facility] [address] [place] [address] Corin Doyle MD [address] [place] [address] documented as of this encounter Visit Diagnoses Not on filedocumented in this encounter Additional Health Concerns Assessment Noted Time PHQ-9 Depression Total Score: 0 11/24/19 3:58 PM EDT documented as of this encounter Care Teams Butcher Assistant Relationship Specialty Start Date End Date Corin Doyle MD [address] [place] [phone] PCP - General Family Medicine 07/18/18 Sam Peace, PharmD [address] [place] [phone] Pharmacist Pharmacy 03/06/25 06/30/[address] JudgeAdvertising Statistical Clerk 12/09/[address] JudgeAdvertising Statistical Clerk 08/27/24 documented as of this encounter
--- OUTSIDE RECORDS SUMMARY | 2025-07-03 14:18 | XMS_ITS | Encounter Summary ---
Author Organization [employer] Address [address] [facility] [address] [place] [address] Care Team Providers Care Internet Researcher Name Role Phone Corin Doyle MD Primary Care Provider [phone] Sam Peace PharmD Unavailable [phone] Encounter Details Date Type Department Care Team ([facility] st Contact Info) Description 08/17/2024 Orders Only [facility] [address] [place], [place] [phone] Corin Doyle MD [address] [place] [address] Social History Tobacco Use Types Packs/Day Years [...] 08/06/2025 3:30 PM EST Office Visit [facility] [address] [place] [address] Corin Doyle MD [address] [place] [address] documented as of this encounter Visit Diagnoses Not on filedocumented in this encounter Additional Health Concerns Assessment Noted Time PHQ-9 Depression Total Score: 0 08/14/19 3:31 PM EST documented as of this encounter Care Teams Internet Researcher Relationship Specialty Start Date End Date Corin Doyle MD [address] [place] [address] PCP - General Family Medicine 07/18/18 Sam Peace, ConchisD [address] [place] [phone] Pharmacist Pharmacy 03/06/25 06/30/25 Danay Carmen Ophthalmic TechMarine Pipefitter Helper 12/09/23 Danay Carmen Ophthalmic TechMarine Pipefitter Helper 08/27/24 documented as of this encounter
--- OUTSIDE RECORDS SUMMARY | 2025-07-03 14:19 | XMS_ITS | Clinical Summary ---
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 Name Role Phone Corin Doyle MD Primary Care Provider [phone] Allergies Active Allergy Reactions Criticality Noted Date Comments Aspirin Shortness of breath,Swelling High Other reaction(s): Rash Montelukast Palpitations Low 03/01/2025 Nsaids Swelling Medications EPINEPHrine (Epipen) 0.3 MG/0.3ML injection syringe INJECT 0.3MG CUANDO SEA NECESARIO ANAPHYLAXIS 30 DAYS 022 Active levothyroxine (Synthroid, Levoxyl) 75 MCG tabletIndicatio ns:Hypothyroidi sm (acquired) take 1 tablet by mouth every morning (DO NOT TAKE WITH ANY OTHER MEDICATION OR FOOD) 90 tablet 3 025 Active cholecalciferol (D3-1000) 25 MCG (1000 UT) capsule TOME OLE CAPSULA TODOS LOS NAM 90 capsule 3 025 Active furosemide (Lasix) 20 MG tablet Take 1 tablet (20 mg) by mouth every other day. 45 tablet 3 025 2025 Active hydrocortisone 2.5 % creamIndication s:Rash APPLY [...] mg day) 90 tablet 3 025 Active albuterol (2.5 MG/3ML) 0.083% nebulizer solutionIndicat ions:Moderate persistent asthma with acute exacerbation Take 3 mL (2.5 mg) by nebulization every 4 (four) hours if needed for wheezing. 75 mL 3 025 Active potassium chloride CR (Klor-Con M20) 20 MEQ ER tablet TAKE 1 TABLET BY MOUTH DAILY WHEN DIRECTED BY HEALTH MEDICAL INSTRUMENT TECHNICIAN. DO NOT CRUSH OR CHEW. 90 tablet 025 Active cyclobenzaprine (Flexeril) 10 MG tablet TAKE 1 TABLET BY MOUTH AT BEDTIME NEEDED FOR MUSCLE SPASMS. 30 tablet 025 Active omeprazole (PriLOSEC) [address] capsuleIndicati ons:Gastroesoph ageal reflux disease, unspecified whether esophagitis present TAKE 1 CAPSULE BY MOUTH EVERY DAY BEFORE A MEAL 90 capsule 1 025 Active Estradiol (Estrace) 0.01 % cream Insert 0.5 g into the vagina See administration instructions. Insert 0.5m vaginally nightly x 14 days, then insert 0.5g twice a week ongoing after that. May use fingertip to apply instead of applicator if that is easier. 42.5 g 1 025 Active Tirzepatide-Artemio ght Management (Zepbound) 5 MG/0.5ML solution auto-injector Inject 0.5 mL (5 mg) under the skin 1 (one) time per week. INJECT ONE PEN (=5 MG) SUBCUTANEOUSLY ONCE A WEEK 2 mL 11 025 Active loratadine (Claritin) 10 MG tablet TAKE 1 TABLET BY MOUTH EVERY DAY 90 tablet 1 025 Active traMADol (Ultram) 50 MG tabletIndicatio ns:Lumbar sprain, initial encounter Take 1 tablet (50 mg) by mouth every 12 (twelve) hours if needed for severe pain. 14 tablet 025 Active Acetaminophen (Mapap) 500 MG capsuleIndicati ons:Acute hip pain, right TAKE 1-2 CAPSULE BY ORAL ROUTE EVERY 6 HOURS NEEDED 30 capsule 025 Active albuterol 108 (90 Base) MCG/ACT inhaler Inhale 2 puffs every 4 (four) hours if needed for wheezing or shortness of breath. Maximum 8 puffs per day 18 g 3 025 2025 Active Symbicort 160-4.5 MCG/ACT inhaler Inhale 2 puffs bid and may use 1-2 puffs as needed for difficulty breathing (no more than 12 puffs daily). Rinse mouth with water after use to reduce aftertaste and incidence of candidiasis. Do not swallow. 1 each 3 Active losartan (Cozaar) 25 MG tabletIndicatio ns:Primary hypertension Take 1 tablet by mouth daily with 50 mg tablet (TDD=75 mg day) 90 tablet 3 Active loratadine (Claritin) 10 MG tablet TOME OLE TABLETA TODOS LOS NAM 90 tablet 1 025 2024 Discontinued Symbicort 160-4.5 MCG/ACT inhaler Inhale 2 puffs [...] eorder (will not trigger notification to Pharmacy)) traMADol (Ultram) 50 MG tabletIndicatio ns:Lumbar sprain, initial encounter Take 1 tablet (50 mg) by mouth every 12 (twelve) hours if needed for severe pain. 14 tablet 025 2024 Discontinued(R eorder (will not trigger notification to Pharmacy)) Acetaminophen (Mapap) 500 MG capsuleIndicati ons:Acute hip pain, right TAKE 1-2 CAPSULE BY ORAL ROUTE EVERY 6 HOURS NEEDED 30 capsule 025 2024 Discontinued(R eorder (will not trigger notification to Pharmacy)) losartan (Cozaar) 25 MG tabletIndicatio ns:Primary hypertension Take 1 tablet by mouth daily with 50 mg tablet (TDD=75 mg day) 90 tablet 3 025 2024 Discontinued(R eorder (will not trigger notification to Pharmacy)) Tirzepatide-Artemio ght Management (Zepbound) 2.5 MG/0.5ML solution auto-injector Inject 0.5 mL (2.5 mg) under the skin 1 (one) time per week. 2 mL 11 025 2024 Discontinued(M ed list cleanup (will not trigger notification to Pharmacy)) Active Problems Problem Noted Date Diagnosed Date [...] Abfraction 06/05/2024 Hypokalemia 11/01/2023 Assessment & Plan (05/20/2025 7:01 AM EST): - Due to chlorthalidone, in the setting of asthma with albuterol use - Chlorthalidone was changed to furosemide - She seems to be requesting and taking KCl 20 mEq daily, but she has not been requesting [facility] refill - Will recheck Assessment & Plan (01/12/2025 5:46 PM EDT): [...] tooth Primary hypertension 11/29/2022 Assessment & Plan (05/20/2025 7:00 AM EST): -Goal BP < 130/80 per ACC/AHA guideline -Continue working on lifestyle modifications -Continue self-monitoring BP. -Continue furosemide 20 mg daily -Continue losartan 75 mg daily (questionable medication adherence per medication refill history); will recheck at next visit -Treatment history: Previously on thiazide diuretics which was discontinued due to low potassium. Assessment & Plan (01/12/2025 5:46 PM EDT): [...] elevation Acquired hypothyroidism 12/01/2017 Assessment & Plan (05/20/2025 6:56 AM EST): -Most recent TSH 3.48 in July 2024 -Current replacement: levothyroxine 75 mcg daily -Continue current medication. Assessment & Plan (08/14/2023 2:56 PM EST): -Most recent TSH 3.53 on 11/25/20, -Current replacement: levothyroxine 75 mcg daily -Continue current medication. 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 Eczema 07/13/2017 Assessment & Plan (05/10/2025 11:14 PM EDT): -liberal moisturization with emollients -avoid irritation -judicious use of topical steroid -immunotherapy by specialist Assessment & Plan (07/25/2022 2:05 PM EST): -liberal moisturization with emollients -avoid irritation -judicious use of topical steroid -immunotherapy by specialist Constipation 08/09/2016 Assessment & Plan (05/20/2025 6:56 AM EST): -Referred to GI for colonoscopy, but pt did not want to pursue - Referred again because patient now agrees to have colonoscopy -Fiber-rich diet -Continue judicious use of laxatives Assessment & Plan (08/14/2023 2:55 PM EST): [...] Posttraumatic stress disorder 02/10/2015 Assessment & Plan (05/10/2025 11:13 PM EDT): -Not on any medication -Not connected with S provider Assessment & Plan (08/14/2023 3:01 PM EST): -Not on any medication -Not connected with [facility] provider Assessment & Plan (07/25/2022 2:07 PM EST): -Not on any medication -Not connected with S provider Asthma 11/19/2013 Assessment & Plan (05/20/2025 7:02 AM EST): -Last exacerbation in Feb 2022. Seen in [facility]. Rx prednisone and azithromycin. Negative COVID -Followed by allergy / web communications specialist -Continue Symicort -Continue montelukast -Continue albuterol neb and inhaler prn (consider SMART) --Pt uses nebulizer treatment at home because her symptoms respond better and faster to nebulizer treatment Assessment & Plan (01/02/2025 12:52 PM EDT): -Last exacerbation in Feb 2022. Seen in [facility]. Rx prednisone and azithromycin. Negative COVID -Followed by allergy / web communications specialist -Continue Symicort -Continue montelukast -Continue albuterol neb and inhaler prn --Pt uses nebulizer treatment at home because her symptoms respond better and faster to nebulizer treatment Assessment & Plan (08/14/2023 2:52 PM EST): -Last exacerbation in Feb 2022. Seen in [facility]. Rx prednisone and azithromycin. Negative COVID -Followed by allergy / web communications specialist -Continue Symicort -Continue montelukast -Continue albuterol neb and inhaler prn --Pt uses nebulizer treatment at home because her symptoms respond better and faster to nebulizer treatment Assessment & Plan (11/23/2022 4:53 PM EDT): -Last exacerbation in Feb 2022. Seen in [facility]. Rx prednisone and azithromycin. Negative COVID -Followed by allergy / web communications specialist -Continue Symicort -Continue montelukast -Continue albuterol neb and inhaler prn --Pt uses nebulizer treatment at home because her symptoms respond better and faster to nebulizer treatment Assessment & Plan (07/25/2022 1:55 PM EST): -Last exacerbation in Feb 2022. Seen in [facility]. Rx prednisone and azithromycin. Negative COVID -Followed by allergy / web communications specialist -Continue Symicort -Continue montelukast -Continue albuterol neb and inhaler prn --Pt uses nebulizer treatment at home because her symptoms respond better and faster to nebulizer treatment Allergic rhinitis 12/06/2012 Assessment & Plan (01/02/2025 12:51 PM EDT): -Previously followed by Dr. Whitehead, allergy / web communications specialist -Continue loratadine -Continue montelukast -Continue immunotherapy -Continue fluticasone nasal Assessment & Plan (08/14/2023 3:00 PM EST): -Previously followed by Dr. Whitehead, allergy / web communications specialist -Continue loratadine -Continue montelukast -Continue immunotherapy -Continue fluticasone nasal Assessment & Plan (11/29/2022 7:45 AM EDT): -Previously followed by Dr. Whitehead, allergy / web communications specialist -Continue loratadine -Continue montelukast -Continue immunotherapy -Continue fluticasone nasal Assessment & Plan (07/25/2022 2:06 PM EST): -Followed by Dr. Whitehead, allergy / web communications specialist -Continue loratadine -Continue montelukast -Continue immunotherapy -Continue fluticasone nasal Chronic back pain 12/06/2012 Assessment & Plan (05/20/2025 7:02 AM EST): -Previously evaluated by paint roller assembler at [facility] -s/p L4 TFESI -Continue back exercise at home -She was referred to PT recently when she was seen in the walk-in clinic Assessment & Plan (07/25/2022 2:07 PM EST): -Previously evaluated by paint roller assembler at [facility] -s/p L4 TFESI -Continue back exercise at [...] nml sinus rhythm, borderline qtc -refer to geothermal electrical engineer for eval Encounters Date Type Department Care Team Description 07/03/2025 Refill [facility] [address] [place] [address] Corin Doyle MD 07/03/2025 Refill [facility] [address] [place] [address] Corin Doyle MD 07/01/2025 Refill [facility] [address] [place] [address] Corin Doyle MD Primary hypertension 07/01/2025 Travel 06/26/2025 Refill [facility] [address] [place] [address] Gabriela López MD Acute hip pain, right 06/26/2025 Refill [facility] [address] [place] [address] Corin Doyle MD Lumbar sprain, initial encounter 06/26/2025 Travel 06/26/2025 Telephone [facility] [address] [place] [address] Corin Doyle MD Durable Medical Equipment (PA : Zepbound) 06/18/2025 Telephone [facility] [address] [place] [address] Corin Doyle MD july recall 06/14/2025 Refill [facility] [address] [place] [address] Corin Doyle MD 06/05/2025 [facility]ill [facility] [address] [place] [address] Corin Doyle MD 06/04/2025 Orders Only [facility] [address] [facility] [address] Naomy Boland CNM 06/02/2025 Refill [facility] [address] [place] [phone] Corin Doyle MD Gastroesophageal reflux disease, unspecified whether esophagitis present 06/02/2025 Refill [facility] [address] [place] [phone] Corin Doyle MD Gastroesophageal reflux disease, unspecified whether esophagitis present 05/19/2025 Refill [facility] [address] [place] [phone] Corin Doyle MD 05/06/2025 2:30 PM EDT Office Visit [address] [address] Corin Doyle MD Primary hypertension (Primary Dx); 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; Posttraumatic stress disorder; Moderate persistent asthma with acute exacerbation; Intrinsic eczema; Chronic low back pain, unspecified back pain laterality, unspecified whether sciatica present; Colon cancer screening; Acquired hypothyroidism; Constipation, unspecified constipation type; Hypokalemia; Screening for diabetes mellitus; Screening for lipid disorders 05/06/[address] [address] Corin Doyle MD Moderate persistent asthma with acute exacerbation 05/06/2025 Travel 05/03/[address] [address] Corin Doyle MD chart prep 04/29/2025 Patient Outreach [facility] [address] [place], [place] [phone] Corin Doyle MD Pre-visit Planning ([facility]OH unable to reach [facility] ) 04/29/2025 Travel 04/27/2025 Refill [facility] [address] [place] [phone] Corin Doyle MD 04/22/2025 Refill [facility] [address] [place] [id number] Corin Doyle MD 04/22/2025 Results Follow-Up [address] [address] Naomy Boland CNM Culture, Urine, Routine 04/15/2025 Orders Only [address] [address] Naomy Boland CNM Urinary frequency (Primary Dx) 04/15/2025 Results Follow-Up [address] [address] Naomy Boland CNM POCT urinalysis dipstick manually resulted, Culture, Urine, Routine, POCT Urine , Additional followed-up results: 2 04/11/2025 2:45 PM EDT Office Visit [address] [address] Naomy Boland CNM Urinary frequency (Primary Dx); Pelvic pain; Screening examination for venereal disease 04/11/2025 Travel 04/11/[address] [address] Corin Doyle MD Nurse Triage 04/09/2025 Results Follow-Up [address] [address] Naomy Boland CNM Pap Smear, BI US Breast Limited Bilateral, US Pelvis Transvaginal 04/06/[address] [address] Corin Doyle MD 04/06/2025 Orders Only [address] [address] Corin Doyle MD Varicose veins of both lower extremities, unspecified whether complicated (Primary Dx) from Last 3 Months Immunizations Immunization Administration [...] Sign Reading Time Taken Comments Blood Pressure 108/72 07/01/2025 3:45 PM EST Pulse 83 07/01/2025 3:45 PM EST Temperature 36.3 C (97.4 F) 05/06/2025 3:17 PM EDT Respiratory Rate 14 05/06/2025 3:17 PM EDT Oxygen Saturation 98% 05/06/2025 3:17 PM EDT Inhaled Oxygen Concentration - - Weight 89.3 kg (196 lb 12.8 oz) 07/01/2025 3:40 PM EST Height 157.5 cm (5' 2 ) 05/06/2025 3:17 PM EDT Body Mass Index 36 05/06/2025 3:17 PM EDT Plan of Treatment Upcoming Encounters Date Type Department Care Team (Late st Contact Info) Description 08/06/2025 3:30 PM EST Office Visit [facility] [address] [place] [address] Corin Doyle MD [address] [place] [address] Health Maintenance Due Date Last Done Comments CT Colonography 1975 Colonoscopy 1975 Colorectal Cancer Screening 1975 FIT DNA/Cologuard 1975 FIT 1975 FOBT 1975 Sigmoidoscopy 1975 Dental Oral Exam 03/02/2024 09/01/2023, 05/2022, 02/02/2019, Additional history exists Dental Prophylaxis 03/02/2024 09/01/2023, 0 11/25/2021, 08/04/2018, Additional history exists Dental X-Ray: Bitewings 09/02/2024 09/01/19 24, 11/25/2021, 02/02/2019, Additional history exists Dental X-Ray: Full Mouth 11/26/2024 022, 11/25/2021, 08/17/2017 COVID-19 Vaccine ( - season) 2025 12/23/2020, 11/25/2020 Influenza Vaccine (#1) 2025 , 04/09/2019, 04/24/2018, Additional history exists Alcohol/Substance Use Screening 08/14/2025 08/14/2024 Depression Screening 08/14/2025 08/14/2024, 08/14/19 SDOH Screening 08/14/2025 08/14/2024 Disability Screening 12/31/2025 12/31/2024 Zoster Vaccines (1 of 2) 01/31/2026 Family Planning (PISQ) 04/02/2026 04/02/2025 Tobacco Screening 05/20/2026 05/20/2025 Mammogram 05/08/2027 05/08/2025, 04/18, 05/08/2025, Additional history exists Cervical Cancer Screening 04/02/2028 [...] Procedure Name Priority Date/Time Associated Diagnosis Comments US PELVIS TRANSVAGINAL Urgent 06/03/2025 3:31 PM EST Unspecified dyspareunia BI US BREAST LIMITED BILATERAL Urgent 05/08/2025 [...] of both lower extremities, unspecified whether complicated HPV DNA, LOW/HIGH RISK Routine 04/02/2025 12:00 AM EDT PAP SMEAR Routine 04/02/2025 12:00 AM EDT Cervical cancer screening LIPID PANEL WITH REFLEX TO DIRECT LDL [...] Recently Relevant to Health Maintenance Results * US Pelvis Transvaginal (06/03/2025 3:31 PM EST) Anatomical Region Laterality Modality Pelvis Ultrasound 06/03/2025 3:31 PM EST Narrative 06/03/2025 5:32 PM EST [address] [address] Ultrasound Report Signed Patient: Janelle León MR#: [id number] : 1975 Acct:[id number] Age/Sex: 50 / F ADM Date: 06/03/25 Loc: HO.US Attending Dr: Naomy MERLOS Ordering Physician: NAOMY BOLAND CNM Date of Service: 06/03/25 Procedure(s): US pelvic and transvaginal Accession Number(s): [id number] cc: Physician,Unknown ; NAOMY BOLAND CNM Reason for Exam: new onset dyspareunia EXAMINATION: US PELVIS CLINICAL INFORMATION: New onset dyspareunia COMPARISON: October 06, 2022 TECHNIQUE: Ultrasound of the pelvis is performed using both transabdominal and transvaginal transducers along with Doppler. Transvaginal imaging is performed due to inadequate visualization transabdominally. FINDINGS: Uterus: The uterus is anteverted and measures 6.6 x 2.8 x 4.0 cm. The double wall endometrial thickness is 2 mm. The uterus is smooth in contour and has normal myometrial echogenicity. No visible fibroid. Adnexa: Right ovary is nonvisualized due to bowel gas. Left ovary is not visualized due to bowel gas. No gross free fluid is identified. US/US pelvic and transvaginal IMPRESSION: Unremarkable ultrasound of the uterus. The ovaries were obscured by bowel gas. Electronically signed by: Shamar Eddy MD 06/03/2025 05:30 PM [facility] Dictated By: Shamar Eddy MD Signed By: <Electronically signed by Shamar Eddy MD in OV> 06/03/25 1730 DD/ 1531 TD/TT: 06/03/25 1602 Reproduction Specialist: Procedure Note Donotuseinterpreter, Image - 06/03/2025 [place] [address] Ultrasound Report Signed Patient: Janelle León GMR#: [id number] : 1975Acct:[id number] Age/Sex: 50 / FADM Date: 06/03/25 Loc: HO.US Attending Dr: Naomy Boland CNM Ordering Physician: NAOMY BOLAND CNM Date of Service: 06/03/25 Procedure(s): US pelvic and transvaginal Accession Number(s): [id number] cc: Physician,Unknown ; NAOMY BOLAND CNM Reason for Exam: new onset dyspareunia EXAMINATION: US PELVIS CLINICAL INFORMATION: New onset dyspareunia COMPARISON: October 06, 2022 TECHNIQUE: Ultrasound of the pelvis is performed using both transabdominal and transvaginal transducers along with Doppler. Transvaginal imaging is performed due to inadequate visualization transabdominally. FINDINGS: Uterus: The uterus is anteverted and measures 6.6 x 2.8 x 4.0 cm. The double wall endometrial thickness is 2 mm. The uterus is smooth in contour and has normal myometrial echogenicity. No visible fibroid. Adnexa: Right ovary is nonvisualized due to bowel gas. Left ovary is not visualized due to bowel gas. No gross free fluid is identified. US/US pelvic and transvaginal IMPRESSION: Unremarkable ultrasound of the uterus. The ovaries were obscured by bowel gas. Electronically signed by: Shamar Eddy MD 06/03/2025 05:30 PM [facility] Dictated By: Shamar Eddy MD Signed By: <Electronically signed by Shamar Eddy MD in OV> 06/03/25 1730 DD/ 1531 TD/TT: 06/03/25 1602 Reproduction Specialist: us Naomy Boland CNM IMG US PROCEDURES Final R esult * BI US Breast Limited Bilateral (05/08/2025 1:57 PM EDT) Anatomical Region Laterality Modality Breast Bilateral Ultrasound 05/08/2025 1:57 PM EDT Narrative 05/08/2025 2:59 PM EDT [facility] [address] [place] [address] Ultrasound Report Signed with Addenda Patient: Janelle León MR#: [id number] : 1975 Acct:[id number] Age/Sex: 50 / F ADM Date: 05/08/25 Loc: HO.MAMMO Attending Dr: Corin Doyle MD Ordering Physician: NAOMY BOLAND CNM Date of Service: 05/08/25 Procedure(s): US Breast BI Limited Mamm Only Accession Number(s): [id number] cc: NAOMY BOLAND POORNIMA Reason for Exam: tender area with 1cm cystic mass right breast outer aspect 9 oclock ADDENDUM ADDENDUM #1 ADDENDUM: Due to a software issue this mammogram was reviewed a second time. The findings and recommendations remain the same. OVERALL ASSESSMENT: Category 1: Negative RECOMMENDATION: 1 year F/U Electronically signed by: Nadia Wade DO 05/20/2025 02:43 PM EST Addendum Dictated By: Nadia Waed DO Addendum Signed By: <Electronically signed by Nadia Wade DO in OV> 05/20/25 1443 Addendum Cosigned By: DD/ TD/TT: 05/08/25 EXAMINATION: MM DIAGNOSTIC DIGITAL BREAST TOMOSYNTHESIS, BILATERAL [...] Wade DO in OV> 05/08/25 1456 DD/ 56 TD/TT: 05/08/251415 Reproduction Specialist: Procedure Note Donotuseinterpreter, Image - 05/20/2025 [facility] [address] [place], [place] [address] Ultrasound Report Signed with Addenda Patient: Janelle León GMR#: [id number] : 1975Acct:[id number] Age/Sex: 50 / FADM Date: 05/08/25 Loc: HOCristinaMAMMO Attending Dr: Corin Doyle MD Ordering Physician: NAOMY BOLAND CNM Date of Service: 05/08/25 Procedure(s): US Breast BI Limited Mamm Only Accession Number(s): [id number] cc: NAOMY BOLAND CNM Reason for Exam: tender area with 1cm cystic mass right breast outeraspect 9 oclock ADDENDUM ADDENDUM #1 ADDENDUM: Due to a software issue this mammogram was reviewed a second time. The findings and recommendations remain the same. OVERALL ASSESSMENT: Category 1: Negative RECOMMENDATION: 1 year F/U Electronically signed by: Nadia Wade DO 05/20/2025 02:43 PM EST RP Addendum Dictated By: Nadia Wade DO Addendum Signed By: <Electronically signed by DO Xenia in OV> 05/20/25 1443 Addendum Cosigned By: DD/ TD/TT: 05/08/25 EXAMINATION: MM DIAGNOSTIC DIGITAL BREAST TOMOSYNTHESIS, BILATERAL [...] 05/08/25 1456 DD/ 1357 TD/TT: 05/08/25 1416 Reproduction Specialist: us Naomy Boland CNM [facility] US PROCEDURES Edited Result - Final * BI Mammogram Diagnostic Tomosynthesis Bilateral (05/08/2025 1:30 PM EDT) Anatomical Region Laterality Modality Breast Bilateral Mammography 05/08/2025 1:30 PM EDT Narrative 05/08/2025 2:59 PM EDT [facility] [address] [place] [address] Mammography Report Signed with Addenda Patient: Janelle León MR#: [id number] : 1975 Acct:[id number] Age/Sex: 50 / F ADM Date: 05/08/25 Loc: HO.MAMMO Attending Dr: Corin Doyle MD Ordering Physician: NAOMY BOLAND CNM Results: 1 Negative Date of Service: 05/08/25 Follow Up: 1 Year From [facility] Mammogram Procedure(s): MM tomosynthesis diagnostic BI Accession Number(s): [id number] cc: NAOMY BOLAND CNM Reason For Exam: RT BR PAIN, LT BR CYST 2:00 ADDENDUM ADDENDUM #1 ADDENDUM: Due to a software issue this mammogram was reviewed a second time. The findings and recommendations remain the same. OVERALL ASSESSMENT: Category 1: Negative RECOMMENDATION: 1 year F/U Electronically signed by: Nadia Wade DO 05/20/2025 02:43 PM EST Addendum Dictated By: Nadia Wade DO Addendum Signed By: <Electronically signed by Nadia Wade DO in OV> 05/20/25 1443 Addendum Cosigned By: DD/ TD/TT: 05/08/25 EXAMINATION: MM DIAGNOSTIC DIGITAL BREAST TOMOSYNTHESIS, BILATERAL [...] 05/08/25 1456 DD/ 1330 TD/TT: 05/08/25 1355 Reproduction Specialist: Procedure Note Donotuseinterpreter, Image - [facility]20/[facility] [address] [place] [address] Mammography Report Signed with Addenda Patient: Janelle León GMR#: [id number] : 1975Acct:[id number] Age/Sex: 50 / FADM Date: 05/08/25 Loc: HARI Attending Dr: Corin Doyle MD Ordering Physician: NAOMY BOLANDesults: 1 Negative Date of Service: 05/08/25Follow Up: 1 Year From Orig inal Mammogram Procedure(s): MM tomosynthesis diagnostic BI Accession Number(s): [id number] cc: NAOMY BOLAND CNM Reason For Exam: RT BR PAIN, LT BR CYST 2:00 ADDENDUM ADDENDUM #1 ADDENDUM: Due to a software issue this mammogram was reviewed a second time. The findings and recommendations remain the same. OVERALL ASSESSMENT: Category 1: Negative RECOMMENDATION: 1 year F/U Electronically signed by: Nadia Wade DO 05/20/2025 02:43 PM EST RP Addendum Dictated By: Nadia Wade DO Addendum Signed By: <Electronically signed by DO Xenia in OV> 05/20/25 1443 Addendum Cosigned By: DD/ TD/TT: 05/08/25 EXAMINATION: MM DIAGNOSTIC DIGITAL BREAST TOMOSYNTHESIS, BILATERAL [...] Wade DO in OV> 05/08/25 1456 DD/ 29 TD/TT: 05/08/25 1355 Reproduction Specialist: Naomy Boalnd CNM IM BI PROCEDURES Edited Result - Final * Culture, Urine, Routine (04/19/2025 2:46 PM EDT) Only the most recent of2 resultswithin the time period is included. Urine Urine specimen obtained by clean catch procedure / Unknown 04/19/2025 2:46 PM EDT 04/19/2025 4:48 PM EDT Comment:UACC Narrative [facility] - 04/21/2025 11:37 AM EDT Urine Culture Report Result Urine Culture 50,000 to 100,000 cfu/ml Urine Culture Mixed bacterial buddy characteristic of Urine Culture urogenital contamination. Specimen Source: Urine clean catch [facility] MICROBIOLOGY - GENERA L ORDERABLES Final Result [facility] [address] [place] [phone] * POCT Urine (04/11/2025 3:05 PM EDT) Preg Test, Ur Negative Negative, Indeterminate, None Detected, Invalid, Specimen unsatisfactory for evaluation, Weakly Positive, 2+ QC Media Lot # [id number] Lot# Expiration Date Urine 04/11/2025 3:05 PM EDT [facility] POINT OF CARE TEST ENTER/ EDIT ORDERABLES Final Result * POCT fern test, vaginal fluid manually resulted (04/11/2025 3:01 PM EDT) JUANIS Prep Negative Comment:pH 4.5, neg whiff, n eg clue, neg trich, neg yeast, neg wbc Vaginal Fluid Vaginal structure / Unknown 04/11/2025 3:01 PM EDT [facility] POINT OF CARE TEST ENTER/ EDIT ORDERABLES Final Result * Trichomonas RNA (Urine/Vaginal) (04/11/2025 3:00 PM EDT) Trichomas vaginalis RNA, QL, TMA NOT DETECTED NOT DETECTED [facility] Comment:For additional infor robert, please refer tohttp://education.questdiagnostics.com/faq/Trichomonastma(This link is being provided for informational/educational purposes only.)THIS TEST WAS PERFORMED AT:[employer] [place] [phone] MCALLISTER MD Urine (Urine, Random) 04/11/2025 3:00 PM EDT 04/11/2025 5:39 PM EDT Naomy Boland [facility] BODY FLUIDS AND STOOL S ORDERABLES Final Result [facility] [address] [place] [address] [phone] * Chlamydia/N. Gonorrhoeae RNA, TMA, Vagina (04/11/2025 3:00 PM EDT) CT PCR NOT DETECTED Not Detect. [facility] Comment:A not detected test result [...] psychologicalconsequences. NG PCR NOT DETECTED Not Detect. [facility] Comment:A not detected test result [...] 3:00 PM EDT 04/11/2025 5:39 PM EDT [facility] MICROBIOLOGY - GENERA L ORDERABLES Final Result [facility] [address] [place] [phone] * POCT urinalysis dipstick manually resulted (04/11/2025 [...] Media Lot # [id number] Lot# Expiration Date 3, Urine 04/11/2025 2:[address] [facility] CenterNaomydemetris PierreSent[facility] POINT OF CARE TEST ENTER/ EDIT ORDERABLES Final Result * VASC US Lower Extremity Venous Insufficiency Bilateral (04/05/2025 1:57 PM EDT) 04/05/2025 1:57 PM EDT Narrative [facility] - 04/05/2025 3:25 PM EDT [address] [address] Ultrasound Report Signed Patient: Janelle León MR#: [id number] : 1975 Acct:[id number] Age/Sex: 50 / F ADM Date: 04/05/25 Loc: . Attending Dr: Corin Doyle MD Ordering Physician: Corin Doyle MD Date of Service: 04/05/25 Procedure(s): US venous insuf bilat Accession Number(s): [id number] cc: Corin Doyle MD Reason for Exam: [...] 0.4 cm Reflux: 0 ms PERFORATORS: Location: Minister Helper into varicosity, distal calf Size: 0.3 cm [...] PERFORATORS: Location: Greater saphenous vein, mid thigh federal law clerk into varicosity Size: 0.2 cm Reflux: 0 [...] 04/05/25 1522 DD/ 1357 TD/TT: 04/05/25 1425 Reproduction Specialist: Procedure Note Donotuseinterpreter, Image - 04/05/[address] [address] Ultrasound Report Signed Patient: Janelle León GMR#: [id number] : 1975Acct:[id number] Age/Sex: 50 / FADM Date: 04/05/25 Loc: HO.US Attending Dr: Corin Doyle MD Ordering Physician: Corin Doyle MD Date of Service: 04/05/25 Procedure(s): US venous insuf bilat Accession Number(s): [id number] cc: Corin Doyle MD Reason for Exam: [...] 0.4 cm Reflux: 0 ms PERFORATORS: Location: Minister Helper into varicosity, distal calf Size: 0.3 cm [...] PERFORATORS: Location: Greater saphenous vein, mid thigh federal law clerk into varicosity Size: 0.2 cm Reflux: 0 ms Location: Greater saphenous vein into varicosity, mid calf Size: 0.2 cm Reflux: 0 ms VARICOSITIES > 3mm: Location: Small saphenous vein, proximal Size: 0.3 cm Reflux: 0 ms US/US venous insuf bilat IMPRESSION: Right: No evidence of venous incompetence. Left: Venous incompetence demonstrated in the greater saphenous vein at the ankle. Electronically signed by: Shaamr Eddy MD 04/05/2025 03:22 PM EDT RP Dictated By: Shamar Eddy MD Signed By: <Electronically signed by Shamar Eddy MD in OV> 04/05/25 1522 DD/ 1357 TD/TT: 04/05/25 1425 Reproduction Specialist: us Corin Doyle MD CV VASCULAR PROCEDURES Edited Re sult - Final [facility] [address] [place] [phone] * HPV DNA, Low/High Risk (04/02/2025 12:00 AM EDT) HPV High Risk Negative Negative [facility] HPV Genotype 16 Negative Negative [facility] HPV Genotype 18 Negative Negative [facility] Comment:HPV testing performe d at [facility] (CLIA#[id number]), [address] [place] [address].Testing for HPV was performed using the Laura [...] Naomy Boland CNM LAB BLOOD ORDERABLES Tegan elizabeth Result [facility] [address] [place] [address] [phone] * Pap Smear (04/02/2025 12:00 AM EDT) Swab Cervix uteri structure / Unknown 04/02/2025 04/03/2025 11:40 AM EDT Narrative [facility] - 04/09/2025 10:08 AM EDT ----- ------- Name: Janelle León Age/Sex: 50/F : 1975 Unit#: [id number] Attend Dr: NAOMY BOLAND CNM Re04/02/25 Status: [facility] REF Location: .LNP Disch: ----- ------- SPEC : [id number] RECD: 04/03/251140 STATUS: CHACHO RODRIGUEZ NUM: [id number] EVI: 04/02/25-[address]: NAOMY BOLAND CNM ENTERED: 04/03/25-1156 SP TYPE: Pap Smr OTHR : ORDERED: Pap Smear, PAP path review Interpretation [...] performed at [facility] (CLIA #[id number]), [address] [place] [address]. Testing for HPV was performed using the [...] detected. All professional services are performed by [facility] ([address] [place] [address]; ; CLIA #[id number]). The PAP Test is a screening procedure with the inherent possibility of both false negative and false positive results. Results should be interpreted in the context of historic and current clinical findings. Reliability of the PAP Test is enhanced by performing the test on a regular repetitive basis. CONTINUED ON NEXT PAGE ----- ------- Name: Janelle León Age/Sex: 50/F : 1975 Unit#: [id number] Attend Dr: NAOMY BOLAND Jessica Re04/02/25 Status: DEP REF Location: [facility] Disch: ----- ------- SPEC : [id number] RECD: 04/03/25 STATUS: CHACHO RODRIGUEZ NUM: [id number] EVI: 04/02/25-[address]: NAOMY BOLAND CNM ENTERED: 04/03/25 SP TYPE: Pap Smr OTHR DR: ORDERED: Pap Smear, PAP path review ----- ------- Signed (signature on file) Rios Castro MD 04/09/25 1008 ----- ------- END OF REPORT us Naomy Boland CNM LAB CYTOLOGY ORDERABLES F inal Result [facility] [address] [place] [address] [phone] * Lipid Panel with Reflex to Direct LDL (08/14/2024 4:05 PM EST) Triglycerides 114 <150 mg/dL [facility] Comment:Desirable Triglyceri de: less than 150 mg/dLBorderline High Triglyceride 150-199 mg/dLHigh Triglyceride: 200-499 mg/dLVery High Triglyceride: greater than or equal to 5OO mg/dL Cholesterol 146 <200 mg/dL [facility] Comment:Desirable Cholestero l: less than 200 mg/dLBorderline High Cholesterol: 200-239 mg/dLHigh Cholesterol: greater than 239 mg/dL LDL Cholesterol Calculated 83 <100 mg/dL [facility] Comment:Desirable LDL: less than 100 mg/dLNear Optimal/Above Optimal LDL: 110- 129 mg/dLBorderline High LDL: 130-159 mg/dLHigh LDL: 160-189 mg/dLVery High LDL: greater than or equal to 190 mg/dL HDL Cholesterol 41 >40 mg/dL [facility] Comment:Desirable HDL: great er than 40 mg/dL Note: This HDL assay may give artificially low results in patients with liver disease. Blood 08/14/2024 4:05 PM EST 08/14/2024 5:33 PM EST Corin Doyle MD LAB BLOOD ORDERABLES Final Resul t Performing Organization Address City/[facility] Co de Phone Number [facility] [address] [place] [phone] * Hepatitis A,B,C Profile (11/11/2023 8:41 AM EDT) Hepatitis A IgM Nonreactive Nonreactive [facility] Comment:IgM antibodies to GUZMÁN V not detected; does not exclude earlyacute or recovered HAV infection. ~Hepatitis B Surface Antibody REACTIVE Nonreactive [facility] Comment:REACTIVE: > 11.99 mI U/mL Hepatitis B Core Antibody Nonreactive Nonreactive [facility] Hepatitis C Antibody Nonreactive Nonreactive [facility] Comment:Antibodies to HCV no t detected; does not exclude early acuteHCV infection. Hepatitis B Surface Ag Negative Negative [facility] Blood Venous blood specimen / Unknown 11/11/2023 8:41 AM EDT 11/11/2023 11:40 AM EDT Corin Doyle MD LAB BLOOD ORDERABLES Final Resul t [facility] [address] [place] [address] [phone] * HIV 1/2 ANTIGEN/ANTIBODY,FOURTH GENERATION W/RFL (07/23/2020 12:19 PM EST) HIV-1/2 ANTIGEN AND ANTIBODIES, 4TH GENERATION W/ REFLEX NON-REACT LU NON-REACT LU [facility] Comment: HIV-1 antigen and HIV-1/HIV-2 [...] purpose. For additional information please refer to http://education.iubenda/faq/EXS458 (This link is being provided for informational/ educational purposes only.) The performance of this assay has not been clinically validated in patients less than 2 years old. 07/23/2020 12:1 9 PM EST us Corin Doyle MD LAB BLOOD ORDERABLES Final Resul t Performing Organization Address [facility] Co de Phone Number [facility] [address] from Last 3 Months or Most Recently Relevant to Health Maintenance Insurance [facility] C[facility] STAND ADULT Care Teams Wood Cut Engraver Relationship Specialty Start Date End Date Corin Doyle MD [address] [place] [address] PCP - General Family Medicine 07/18/18 Danay Carmen Engineered Wood DesignerRepairer Hairspring 12/09/23 Danay Carmen Engineered Wood DesignerRepairer Hairspring 08/27/24
--- OUTSIDE RECORDS SUMMARY | 2025-07-03 14:19 | XMS_ITS | Encounter Summary ---
Author Organization [employer] [facility] Address [address] [place] [address] 7 [place] [address] Care Team Providers Care Aluminum Molding Machine Operator Name Role Phone Corin Doyle MD Primary Care Provider [phone] Sam Peace PharmD Unavailable [phone] Encounter Details Date Type Department Care Team (Latest Contact Info) Description 11/25/2021 Abstract [facility] CONVERSIONS Dental, Provider, DDS Social History Tobacco [...] Description 08/06/2025 3:30 PM EST Office Visit [facility] MEDICINE [address] [place] [address] Corin Doyle MD [address] [place] [address] documented as of this encounter Visit Diagnoses Not on filedocumented in this encounter Care Teams Aluminum Molding Machine Operator Relationship Specialty Start Date End Date Corin Doyle MD [address] [place] [address] PCP - General Family Medicine 07/18/18 Sam Peace, PharmD [address] [place] [phone] Pharmacist Pharmacy 03/06/25 06/30/25 Danay Carmen Make Up EditorMuseum Assistant 12/09/23 Danay Carmen Make Up EditorMuseum Assistant 08/27/24 documented as of this encounter
--- OUTSIDE RECORDS SUMMARY | 2025-07-03 14:19 | XMS_ITS | Encounter Summary ---
Author Organization [employer] Address [address] [facility] 7t [place] [address] Care Team Providers Care Die Designer Apprentice Name Role Phone Corin Doyle MD Primary Care Provider [phone] Sam Peace PharmD Unavailable [phone] Reason for Visit * Reason Onset Date Comments Referral 01/26/2023 Encounter Details Date Type Department Care Team ([facility] st Contact Info) Description 01/26/2023 Telephone [facility] MEDICINE [address] [place] [address] Corin Doyle MD [address] [place] [address] Referral Social History Tobacco Use Types Packs/Day [...] Description 08/06/2025 3:30 PM EST Office Visit [facility] [address] [place] [address] Corin Doyle MD [address] [place] [address] documented as of this encounter Visit Diagnoses Not on filedocumented in this encounter Additional Health Concerns Assessment Noted Time PHQ-9 Depression Total Score: 0 11/24/19 3:58 PM EDT documented as of this encounter Care Teams Die Designer Apprentice Relationship Specialty Start Date End Date Corin Doyle MD [address] [place] [address] PCP - General Family Medicine 07/18/18 Sam Peace, PharmD [address] [place] [address] Pharmacist Pharmacy 03/06/25 06/30/25 Gabriella Carmen CargomanWatch Band Assembler 12/09/23 Gabriella Carmen CargomanWatch Band Assembler 08/27/24 documented as of this encounter
--- OUTSIDE RECORDS SUMMARY | 2025-07-03 14:19 | XMS_ITS | Encounter Summary ---
Author Organization [employer] Address [address] [facility] 7t [place] [address] Care Team Providers Care Rcis Name Role Phone Corin Doyle MD Primary Care Provider [phone] Sam Peace PharmD Unavailable [phone] Reason for Visit * Reason Onset Date Comments Med Refill 03/13/2025 Encounter Details Date Type Department Care Team (Late st Contact Info) Description 03/13/2025 Refill [facility] [address] [place] [address] Corin Doyle MD [address] [place] [address] Social History Tobacco Use Types Packs/Day Years [...] Description 08/06/2025 3:30 PM EST Office Visit [facility] MED[facility]INE [address] [place] [address] Corin Doyle MD [address] [place] [address] documented as of this encounter Visit Diagnoses Not on filedocumented in this encounter Additional Health Concerns Assessment Noted Time PHQ-9 Depression Total Score: 0 08/14/19 25 3:31 PM EST documented as of this encounter Care Teams Rcis Relationship Specialty Start Date End Date Corin Doyle MD [address] [place] [phone] PCP - General Family Medicine 07/18/18 Sam Peace, ConchisD [address] [place] [phone] Pharmacist Pharmacy 03/06/25 06/30/25 Danay Carmen Auto RollerFixture Builder 12/09/23 Danay Carmen Auto RollerFixture Builder 08/27/24 documented as of this encounter
--- OUTSIDE RECORDS SUMMARY | 2025-07-03 14:19 | XMS_ITS | Encounter Summary ---
Author Organization [employer] Address [address] [facility] 7t [place] [address] Care Team Providers Care Sourcing Internship Name Role Phone Corin Doyle MD Primary Care Provider [phone] Sam Peace PharmD Unavailable [phone] Reason for Visit * Reason Comments Med Refill Encounter Details Date Type Department Care Team ([facility] st Contact Info) Description 03/19/2025 Refill [facility] MEDICINE [address] [place], [place] [phone] Corin Doyle MD [address] [place] [address] Social History Tobacco Use Types Packs/Day Years [...] 08/06/2025 3:30 PM EST Office Visit [facility] MEDICINE [address] [place] [address] Corin Doyle MD [address] [place] [address] documented as of this encounter Visit Diagnoses Not on filedocumented in this encounter Additional Health Concerns Assessment Noted Time PHQ-9 Depression Total Score: 0 08/14/19 3:31 PM EST documented as of this encounter Care Teams Sourcing Internship Relationship Specialty Start Date End Date Corin Doyle MD [address] [place] [address] PCP - General Family Medicine 07/18/18 Sam Peace, ConchisD [address] [place] [phone] Pharmacist Pharmacy 03/06/25 06/30/25 Danay Carmen Graduate FellowHeavy Equipment Supervisor 12/09/23 Danay Carmen Graduate FellowHeavy Equipment Supervisor 08/27/24 documented as of this encounter
--- OUTSIDE RECORDS SUMMARY | 2025-07-03 14:19 | XMS_ITS | Encounter Summary ---
Author Organization [employer] Address [address] [facility] [address] 7t [place] [address] Care Team Providers Care Home Health Care Coordinator Name Role Phone Corin Doyle MD Primary Care Provider [phone] Sam Peace PharmD Unavailable [phone] Reason for Visit * Reason Onset Date Comments Letter Request 07/05/2022 I called jodi comer the pt's request for a letter for housing. She stated that she is requesting an apartment on a first floor, or one with elevator accessibility, due to her medical conditions. Encounter Details Date Type Department Care Team ([facility] Contact Info) Description 07/05/[address] [facility] MED & PEDS [address] [place], [place] [phone] Corin Doyle MD [address] [place] [address] Letter Request (I called regarding the pt's [...] Upcoming Encounters Date Type Department Care Team ([facility] Contact Info) Description 08/06/2025 3:30 PM EST Office Visit [facility] MEDICINE [address] [place] [address] Corin Doyle MD [address] [place] [address] documented as of this encounter Visit Diagnoses Not on filedocumented in this encounter Care Teams Home Health Care Coordinator Relationship Specialty Start Date End Date Cor[place] [address] PCP - General Family Medicine 07/18/18 Sam Peace, ConchisD [address] [place] [address] Pharmacist Pharmacy 03/06/25 06/30/25 Danay Carmen Strap Machine OperatorCook Soup 12/09/23 Dnaay Carmen Strap Machine OperatorCook Soup 08/27/24 documented as of this encounter
--- OUTSIDE RECORDS SUMMARY | 2025-07-03 14:19 | XMS_ITS | Encounter Summary ---
Author Organization [employer] Address [address] [facility] 7t [place] [address] Care Team Providers Care Scooper Name Role Phone Corin Doyle MD Primary Care Provider [phone] Sam Peace PharmD Unavailable [phone] Encounter Details Date Type Department Care Team (Late Contact Info) Description 06/28/2022 Orders Only [facility] MED & PEDS [address] [place] [address] Belgica Lanza RN Social History Tobacco Use [...] Department Care Team (Late Contact Info) Description 08/06/2025 3:30 PM EST Office Visit [facility] MEDICINE [address] [place] [address] Corin Doyle MD [address] [place] [address] documented as of this encounter Visit Diagnoses Not on filedocumented in this encounter Care Teams Scooper Relationship Specialty Start Date End Date Corin Doyle MD [address] [place] [phone] PCP - General Family Medicine 07/18/18 Sam Peace, PharmD [address] [place] [phone] Pharmacist Pharmacy 03/06/25 06/30/25 Danay Carmen Daycare TeacherHose Tubing Backer 12/09/23 Danay Carmen Daycare TeacherHose Tubing Backer 08/27/24 documented as of this encounter
--- OUTSIDE RECORDS SUMMARY | 2025-07-03 14:19 | XMS_ITS | Encounter Summary ---
Author Organization [employer] Address [address] [facility] [address] 7[address] [place] [address] Care Team Providers Care Verify Rep Name Role Phone Corin Doyle MD Primary Care Provider [phone] Sam Peace PharmD Unavailable [phone] Encounter Details Date Type Department Care Team ([facility] st Contact Info) Description 03/01/2025 Orders Only [facility] MEDICINE [address] [place], [place] [phone] Corin Doyle MD [address] [place] [address] Hypokalemia (Primary Dx) Social History Tobacco Use [...] Description 08/06/2025 3:30 PM EST Office Visit [facility] [address] [place] [address] Corin Doyle MD [address] [place] [address] documented as of this encounter Procedures Procedure Name Priority Date/Time Associated Diagnosis Comments MAGNESIUM Routine 04/01/2025 3:26 PM EDT Hypokalemia BASIC METABOLIC PANEL Routine 04/01/2025 3:26 PM EDT Hypokalemia documented in this encounter Results * Magnesium (04/01/2025 3:26 PM EDT) Magnesium 2.1 1.6 - 2.6 mg/dL [facility] Blood Venous blood specimen / Unknown 04/01/2025 3:26 PM EDT 04/01/2025 4:08 PM EDT us Corin Doyle MD LAB BLOOD ORDERABLES Final Resul t [facility] [address] [place] [address] [phone] * (ABNORMAL) Basic Metabolic Panel (04/01/2025 3:26 PM EDT) Sodium 144 135 - 145 mmol/L [facility] Potassium 3.6 3.3 - 5.1 mmol/L [facility] Chloride 109(H) 96 - 108 mmol/L [facility] Carbon Dioxide 29 22 - 29 mmol/L [facility] Anion Gap 10(L) 12 - 20 [facility] Urea Nitrogen (BUN) 15 9 - 16 mg/dL [facility] Creatinine, Serum 0.81 0.5 - 1.4 mg/dL [facility] Estimated Glomerular Filt Rate >60 [facility] Comment:Chronic Kidney Disea se: Estimated GFR < 60 mL/min/1.62b0Rmsimi Kidney Disease: Estimated GFR < 15 mL/min/1.73m2 Glucose 87 60 - 115 mg/dL [facility] Calcium 8.9 8.4 - 10.2 mg/dL [facility] Blood Venous blood specimen / Unknown 04/01/2025 3:26 PM EDT 04/01/2025 4:08 PM EDT us Corin Doyle MD LAB BLOOD ORDERABLES Final Resul t [facility] [address] [place] [address] [phone] documented in this encounter Visit Diagnoses Diagnosis Hypokalemia- Primary Hypopotassemia documented in this encounter Additional Health Concerns Assessment Noted Time PHQ-9 Depression Total Score: 0 08/14/19 25 3:31 PM EST documented as of this encounter Care Teams Verify Rep Relationship Specialty Start Date End Date Corin Doyle MD [address] [place] [address] PCP - General Family Medicine 07/18/18 Sam Peace, PharmD [address] [place] [phone] Pharmacist Pharmacy 03/06/25 06/30/25 Danay Carmen Retail Stock ClerkUpper Trimmer 12/09/23 Danay Carmen Retail Stock ClerkUpper Trimmer 08/27/24 documented as of this encounter
--- OUTSIDE RECORDS SUMMARY | 2025-07-03 14:19 | XMS_ITS | Encounter Summary ---
Author Organization [employer] Address [address] [facility] [address] [place] [address] Care Team Providers Care Geospatial Applications Developer Name Role Phone Corin Doyle MD Primary Care Provider [phone] Sam Peace PharmD Unavailable [phone] Reason for Visit * Reason Onset Date Comments Med Refill 07/12/2024 Encounter Details Date Type Department Care Team (Late st Contact Info) Description 07/12/2024 Refill [facility] [address] [place] [address] Corin Doyle MD [address] [place] [address] Social History Tobacco Use Types Packs/Day Years [...] 3:30 PM EST Office Visit [facility] [address] [place] [phone] Corin Doyle MD [address] [place] [address] documented as of this encounter Visit Diagnoses Not on filedocumented in this encounter Additional Health Concerns Assessment Noted Time PHQ-9 Depression Total Score: 0 11/24/19 23 3:58 PM EDT documented as of this encounter Care Teams Geospatial Applications Developer Relationship Specialty Start Date End Date Corin Doyle MD [address] [place] [address] PCP - General Family Medicine 07/18/18 Sam Peace, PharmD [address] [place] [address] Pharmacist Pharmacy 03/06/25 06/30/25 Danay Carmen Contract Law SpecialistRefinery Pipeline Operator 12/09/23 Danay Carmen Contract Law SpecialistRefinery Pipeline Operator 08/27/24 documented as of this encounter
--- OUTSIDE RECORDS SUMMARY | 2025-07-03 14:19 | XMS_ITS | Encounter Summary ---
Author Organization [employer] Address [address] [facility] [address] [place] [address] Care Team Providers Care Internal Grinder Tender Name Role Phone Corin Doyle MD Primary Care Provider [phone] Sam Peace PharmD Unavailable [phone] Reason for Visit * Reason Onset Date Comments triage 10/28/2022 Encounter Details Date Type Department Care Team ([facility] st Contact Info) Description 10/28/2022 Telephone [facility] [address] [place] [address] Corin Doyle MD 230 [place] [address] triage Social History Tobacco Use Types Packs/Day [...] 11:47 AM EDT Triage call with Suze Endless Belt Finisher [place] [id number] Pt reports burning with urination, bladder pressure, [...] Description 08/06/2025 3:30 PM EST Office Visit [facility] [address] [place] [address] Corin Doyle MD [address] [place] [address] documented as of this encounter Visit Diagnoses Not on filedocumented in this encounter Care Teams Internal Grinder Tender Relationship Specialty Start Date End Date Corin Doyle MD [address] [place] [phone] PCP - General Family Medicine 07/18/18 Sam Peaec, ConchisD [address] [place] [address] Pharmacist Pharmacy 03/06/25 06/30/25 Danay Carmen Wine PasteurizerCeiling Cleaner 12/09/23 Danay Carmen Wine PasteurizerCeiling Cleaner 08/27/24 documented as of this encounter
--- OUTSIDE RECORDS SUMMARY | 2025-07-03 14:19 | XMS_ITS | Encounter Summary ---
Author Organization [employer] Address [address] [facility] 7t [place] [address] Care Team Providers Care Home Day Care Provider Name Role Phone Corin Doyle MD Primary Care Provider [phone] Sam Peace PharmD Unavailable [phone] Reason for Referral * Consultation (Routine) - Closed Specialty Diagnoses / Procedures Referred By Contac t Referred To Contact Pharmacy Diagnoses Primary hypertension Corin Doyle MD [address] [place] [address] Phone: tel: fax: Referral ID Status Reason Start Date Expiration Date V isits Requested Visits Authorized [id number] Closed Consult and Treat 04/01/2025 04/01/2026 6 6 Encounter Details Date Type Department Care Team (Late st Contact Info) Description 04/01/2025 Orders Only [facility] [address] [place] [address] [phone] Corin Doyle MD [address] [place], [place] [phone] Primary hypertension (Primary Dx) Social History Tobacco [...] Description 08/06/2025 3:30 PM EST Office Visit [facility] [address] [place] [address] Corin Doyle MD [address] [place] [address] Scheduled Referrals Name Type Priority Associated Diagnoses Orde r Schedule Referral to Pharmacy CDTM Outpatient Referral Routine Primary hypertension Ordered: 04/01/2025 documented as of this encounter Visit Diagnoses Diagnosis Primary hypertension- Primary Unspecified essential hypertension documented in this encounter Additional Health Concerns Assessment Noted Time PHQ-9 Depression Total Score: 0 08/14/19 25 3:31 PM EST documented as of this encounter Care Teams Home Day Care Provider Relationship Specialty Start Date End Date Corin Doyle MD [address] [place] [address] PCP - General Family Medicine 07/18/18 Sam Peace, PharmD [address] [place] [address] Pharmacist Pharmacy 03/06/25 06/30/25 Danay Carmen Cut Roll Machine OffbearerLoss Claim Clerk 12/09/23 Danay Carmen Cut Roll Machine OffbearerLoss Claim Clerk 08/27/24 documented as of this encounter
--- OUTSIDE RECORDS SUMMARY | 2025-07-03 14:19 | XMS_ITS | Encounter Summary ---
Author Organization [employer] Address [address] [facility] [address] [place] [address] Care Team Providers Care Property Management Assistant Name Role Phone Corin Doyle MD Primary Care Provider [phone] Sam Peace PharmD Unavailable [phone] Reason for Visit * Reason Onset Date Comments Med Refill 06/02/2025 Encounter Details Date Type Department Care Team (Late st Contact Info) Description 06/02/2025 Refill [facility] [address] [place] [address] Corin Doyle MD [address] [place], [place] [phone] Gastroesophageal reflux disease, unspecified whether esophagitis present Social History Tobacco Use Types Packs/Day [...] Description 08/06/2025 3:30 PM EST Office Visit [facility] [address] [place] [phone] Corin Doyle MD [address] [place] [address] documented as of this encounter Visit Diagnoses Diagnosis Gastroesophageal reflux disease, unspecified whether esophagitis present documented in this encounter Additional Health Concerns Assessment Noted Time PHQ-9 Depression Total Score: 0 08/14/19 3:31 PM EST documented as of this encounter Care Teams Property Management Assistant Relationship Specialty Start Date End Date Corin Doyle MD [address] [place] [address] PCP - General Family Medicine 07/18/18 Sam Peace, PharmD [address] [place] [phone] Pharmacist Pharmacy 03/06/25 06/30/25 Danay Carmen Film Developing Machine OperatorStrip Machine Operator 12/09/23 Danay Carmen Film Developing Machine OperatorStrip Machine Operator 08/27/24 documented as of this encounter
--- OUTSIDE RECORDS SUMMARY | 2025-07-03 14:19 | XMS_ITS | Encounter Summary ---
Author Organization [employer] Address [address] [facility] 7t [place] [address] Care Team Providers Care Telephone Order Clerk Room Service Name Role Phone Corin Doyle MD Primary Care Provider Sam Peace PharmD Unavailable [phone] Reason for Visit * Reason Comments Med Refill Encounter Details Date Type Department Care Team ([facility] st Contact Info) Description 12/14/2022 Refill [facility] [address] [place], [place] [phone] Corin Doyle MD [address] [place], [place] [phone] LLQ pain Social History Tobacco Use Types [...] Description 08/06/2025 3:30 PM EST Office Visit [facility] [address] [place] [phone] Corin Doyle MD [address] [place] [phone] documented as of this encounter Visit Diagnoses Diagnosis LLQ pain Abdominal pain, left lower quadrant documented in this encounter Additional Health Concerns Assessment Noted Time PHQ-9 Depression Total Score: 0 11/24/19 23 3:58 PM EDT documented as of this encounter Care Teams Telephone Order Clerk Room Service Relationship Specialty Start Date End Date Corin Doyle MD [address] [place] [phone] PCP - General Family Medicine 07/18/18 Sam Peace, PharmD [address] [place] [phone] Pharmacist Pharmacy 03/06/25 06/30/25 Danay Carmen Sulphate TesterOrdering Box Operator 12/09/23 Danay Carmen Sulphate TesterOrdering Box Operator 08/27/24 documented as of this encounter
== END 2025-07-03 11:24 | disposition home or self-care (01) ==
LOC: HO.HVS 10:57
PROVIDERS: PCP Family Medicine; Visit Provider Surgery Vascular Surgery
DX: M79.605 Pain in left leg (principal)
CPT/HCPCS: 99204

== ENCOUNTER → 2025-07-03 10:56 | Outpatient (BNVA) | payer MEDICAID, SELFPAY | PROVIDERS: PCP Family Medicine; Visit Provider Surgery Vascular Surgery | DX: M79.605 Pain in left leg (principal) | CPT/HCPCS: 99202 ==